=== PATIENT | female | born 1985 | race Caucasian/White ===

== ENCOUNTER 2022-01-10 11:14 | Inpatient (IN) | payer OTHER, SELFPAY ==
--- NOTE | ~2022-01-10 | XR_ITS ---
EXAMINATION: XR CHEST CLINICAL INFORMATION: Chest pain COMPARISON: None TECHNIQUE: Frontal view of the chest was obtained. FINDINGS: The cardiac and mediastinal contours are normal. There may be slight elevation or eventration of the right hemidiaphragm. The lungs are clear. There is no pleural effusion or pneumothorax. Bony structures are unremarkable. XR/XR chest 1V IMPRESSION: Slight eventration or elevation of the right hemidiaphragm otherwise unremarkable exam.
--- NOTE | ~2022-01-10 | CT_ITS ---
EXAMINATION: CT ABDOMEN AND PELVIS WITHOUT CONTRAST CLINICAL INFORMATION: Abdominal pain and vomiting COMPARISON: None. TECHNIQUE: Multidetector volumetric imaging was performed from the lung bases through the pubic symphysis. Sagittal and coronal reformatted images were obtained on the technologist workstation. This CT examination was performed using dose optimization techniques as appropriate, variously including the following: *Automated exposure control *Adjustment of mA and/or kV according to patient size (this includes techniques or standardized protocols for targeted exams where dose is matched to indication/reason for exam; i.e. extremities or head) *Use of iterative reconstruction technique Total exam dose-length product 1318 mGy-cm FINDINGS: The lack of intravenous contrast limits evaluation of the solid visceral organs including the liver, spleen, pancreas, and kidneys. LUNG BASES: The visualized lung bases are unremarkable. LIVER, GALLBLADDER, AND BILIARY TREE: Limited non-contrast evaluation is normal. No gross focal hepatic lesion. Normal liver size and contour. No gross biliary ductal dilation. There is dependent high density in the gallbladder, suggesting layering hyperdense bile or sludge. PANCREAS: Limited non-contrast evaluation is normal. No gabriela-pancreatic fluid. SPLEEN: Limited non-contrast evaluation is normal. ADRENAL GLANDS: Normal; no adrenal mass. KIDNEYS AND URETERS: Limited non-contrast evaluation is normal. No hydronephrosis, hydroureter, or calculi seen. No perinephric stranding. GASTROINTESTINAL TRACT: Stomach and small bowel are nondilated. Scattered colonic diverticulosis. No pericolonic fluid or fat stranding to suggest acute diverticulitis. There is a suggestion of wall thickening of the sigmoid colon although it is collapsed. No wall thickening seen elsewhere.. ABDOMINAL WALL: No hernia seen. LYMPH NODES: No pathologically enlarged lymph nodes in the abdomen or pelvis. VASCULAR: Normal caliber abdominal aorta. BLADDER: Unremarkable. PELVIC VISCERA: Normal noncontrast appearance of the uterus and ovaries. OSSEOUS STRUCTURES: No acute or suspicious osseous abnormalities. CT/CT abdomen pelvis wo con IMPRESSION: There is equivocal wall thickening of the sigmoid colon. The sigmoid colon is collapsed so the appearance may simply be due to underdistention but a subtle colitis could give this appearance as well. No pericolonic fluid or fat stranding to strongly suggest an acute infectious or inflammatory process.
[2022-01-10 11:20] VITALS: BP 188/89; PULSE 54; RESP 18; TEMP 36.9; O2SAT 100; BMI 44.3
--- NOTE | 2022-01-10 11:27 | ECG_ITS ---
Test Reason : CP Blood Pressure : / mmHG Vent. Rate : 104 BPM Atrial Rate : 104 BPM P-R Int : 130 ms QRS Dur : 090 ms QT Int : 354 ms P-R-T Axes : 037 -30 025 degrees QTc Int : 465 ms Sinus tachycardia Left axis deviation Minimal voltage criteria for LVH, may be normal variant ( Alex product ) Abnormal ECG No previous ECGs available Referred By: Generic ED Physician Electronically Signed By:DENNIS RAY MD
[2022-01-10 11:45] LABS: MANUAL DIFF FLAG NO
[2022-01-10 11:52] LABS: Basophils Percent Auto 0.2 % (0-2); Hematocrit 43.7 % (37.0-47.0); Hemoglobin 14.1 g/dl (12.0-16.0); Imm Gran Pct Auto 0.5 % (0.0-0.4); Lymphocytes Absolute Auto 1.9 X10*3/uL (1.2-4.9); Lymphocytes Percent Auto 10.4 % (20-40); Mean Corpuscular HGB Conc 32.3 g/dl (31.0-35.0); Mean Corpuscular Hemoglobin 26.2 pg (27.0-33.0); Mean Corpuscular Volume 81.1 fL (80.0-98.0); Mean Platelet Volume 8.9 fL (9.4-12.3); Monocytes Absolute Auto 0.6 X10*3/uL (0.1-1.2); Monocytes Percent Auto 3.2 % (2-11); Neutrophils Absolute Auto 15.7 x10*3/uL (2.0-8.3); Neutrophils Percent Auto 85.7 % (45-73); Platelet Count 528 X10*3/uL (160-400); Red Blood Count 5.39 X10*6/uL (4.20-5.50); Red Cell Distribution Width 13.9 % (11.0-16.0); White Blood Count 18.3 X10*3/uL (4.8-10.8)
[2022-01-10 12:05] LABS: Anion Gap 17 (12-20); Blood Urea Nitrogen 10 mg/dL (9-16); Calcium 9.7 mg/dL (8.4-10.2); Carbon Dioxide 23 mmol/L (22-29); Chloride 98 mmol/L (96-108); Creatinine Clr Calc Pharmacy 105.5; Estimated Glomerular Filt Rate > 60; Glucose Random 385 mg/dL (60-115); Potassium 4.1 mmol/L (3.3-5.1); Sodium 134 mmol/L (135-145); Troponin-I High Sensitivity 32.5 ng/L (<3.5-17.0)
[2022-01-10 13:25] VITALS: BP 195/109; PULSE 89; RESP 15; O2SAT 98
--- NOTE | 2022-01-10 13:36 | ED_ITS ---
HPI - General Adult General Chief complaint: Arrhythmia/Palpitations Stated complaint: Vomiting/Rapid heartbeat Time Seen by Provider: 01/10/22 13:33 Source: patient and family (Daughter) Mode of arrival: ambulatory Limitations: no limitations History of Present Illness HPI narrative: 36-year-old female came in for evaluation of vomiting for the past 5 days. Otherwise healthy 36-year-old female with known history of heroin IV abuser last use was today, patient also been smoking marijuana, came in for evaluation of nonstop vomiting for the past 5 days, no diarrhea with normal bowel movement, no fever, no chills. Patient been having abdominal pain described as mostly upper, worsening with nausea and vomiting, no radiation, not related to food. Related Data Allergies Allergy/AdvReac Type Severity Reaction Status Date / Time No Known Allergies Allergy Verified 01/10/22 11:27 Review of Systems 2 Review of Systems: All other systems are reviewed and are negative Constitutional: Reports as per HPI and Reports no additional constitutional complaints Eyes: Reports as per HPI and Reports no additional eye complaints Reports system reviewed and no additional complaints, except as documented Cardiovascular: Reports as per HPI and Reports no additional cardiovascular complaints Respiratory: Reports as per HPI and Reports no additional respiratory complaints Gastrointestinal: Reports as per HPI and Reports no additional gastrointestinal complaints Genitourinary: Reports no additional female genitourinary complaints Musculoskeletal: Reports no additional musculoskeletal complaints Skin/Breast: Reports system reviewed and no additional complaints, except as docu Psychiatric: Reports no additional psychiatric complaints Endocrine: Reports no additional endocrine complaints Hematologic/Lymphatic: Reports no additional hematologic/lymphatic complaints Allergic/Immunologic: Reports no additional allergic/immunologic complaints Reports system reviewed and no additional complaints, except as documented and Reports Abnormal speech present [facility] Past Medical History Medical History Anxiety and depression Diabetes Methadone maintenance therapy patient Polysubstance (excluding opioids) dependence, daily use Social History Social History Alcohol intake: never Patient Tobacco Use Status: Never used Tobacco Use of substances other than those prescribed or required for medical reasons: Yes Substance Use Type: Heroin Substance Use Frequency: Daily Last Used Substance: Hours (ago) Any prior treatment program specific to substance use: Yes (methadone clinic) Advance Directives: No Advance Directives Information Provided: No Patient : No Physical Exam ED Vital Signs: Vital Signs - 24 hr 01/10/22 11:20 01/10/22 13:25 01/10/22 15:02 Temperature 98.5 F Pulse Rate 54 89 80 Respiratory Rate 18 15 13 Blood Pressure 188/89 H 195/109 H 191/92 H Pulse Oximetry 100 98 95 01/10/22 16:08 Temperature 98.8 F Pulse Rate 70 Respiratory Rate 17 Blood Pressure 193/99 H Pulse Oximetry 95 BMI result Body Mass Index 44.3 Vital signs have been reviewed as appeared to be correct. Blood pressure elevated. Heart rate normal. Respiration rate normal. Temperature normal. Oxygen saturation normal. Appearance: Alert. Oriented X3. No acute distress. Head: Normal external exam. Normocephalic. Atraumatic. No Zhang signs noted. No raccoon eyes noted Eyes: PERRLA. EOMI. Conjunctiva and sclera normal. Eyelids normal. ENT: TM's Normal. Pharynx normal. Uvula midline. Moist mucous membranes. No trismus noted. No drooling noted. No muffled voice noted. Neck: Normal inspection. Neck supple. FROM. No adenopathy. Thyroid Normal. No meningeal signs. No neck mass noted. CVS: Normal heart rate and rhythm. Heart sound normal. No murmurs noted. Pulses normal throughout. Respiratory: No respiratory distress. Painless inspiration. Breath sounds normal. No wheezes/rales/rhonchi noted. Chest nontender. No accessory muscle usage noted or decreased air movement noted. Abdomen: Soft and nontender. Bowel sounds normal in all 4 quadrants. No distention noted. No organomegaly noted. No visible injury noted. Back: No CVA tenderness. Full range of motion noted. Skin: Skin warm and dry. Normal skin color. Normal skin turgor. No rashes/lesions/lacerations noted. Extremities: No lower extremity edema. Extremities exhibit normal range of motion. Extremities nontender. Neuro: Oriented X 3. Cranial nerve exam: II-XII are grossly intact No motor deficit. No sensory deficit. Reflexes normal. Course Course Course Narrative: Assessment and plan. 36-year-old female came in with intractable vomiting, complaining of upper abdominal/chest/ heart burn thought to be due to the intractable vomiting, patient admitted to using IV heroin but no cocaine, head CT abdomen and pelvis which shows no acute pathology, has unremarkable EKG troponin was elevated at 32.5 then increased to 81.8, the case discussed with Dr. Duran who recommended to trend troponin value every 6-8 hours and in no other acute intervention at this point. Will admit the patient for IV hydration, vomiting control, serial troponin the case discussed with Dr. Ann who accepted the patient and agreed on the plan. Medical Decision Making Lab Data Lab results reviewed: Yes I reviewed the patient's lab results. Result diagrams: 01/10/22 11:39 01/10/22 11:39 Labs: Lab Results 01/10/22 01/10/22 01/10/22 Range/Units 11:39 11:39 11:39 WBC 18.3 H (4.8-10.8) X10*3/uL RBC 5.39 (4.20-5.50) X10*6/uL Hgb 14.1 (12.0-16.0) g/dl Hct 43.7 (37.0-47.0) % MCV 81.1 (80.0-98.0) fL MCH 26.2 L (27.0-33.0) pg MCHC 32.3 (31.0-35.0) g/dl RDW 13.9 (11.0-16.0) % Plt Count 528 H (160-400) X10*3/uL MPV 8.9 L (9.4-12.3) fL Immature Gran % (Auto) 0.5 H (0.0-0.4) % Neut % (Auto) 85.7 H (45-73) % Lymph % (Auto) 10.4 L (20-40) % [place] % (Auto) 3.2 (2-11) % Eos % (Auto) 0.0 (0-4) % Baso % (Auto) 0.2 (0-2) % Lymph # (Auto) 1.9 (1.2-4.9) X10*3/uL [place] # (Auto) 0.6 (0.1-1.2) X10*3/uL Eos # (Auto) 0.0 (0.0-0.4) X10*3/uL Baso # (Auto) 0.0 (0.0-0.2) X10*3/uL Abs Immat Gran (auto) 0.10 H (0.00-0.03) X10*3/uL Absolute Neuts (auto) 15.7 H (2.0-8.3) x10*3/uL Absolute Nucleated RBC 0.000 (0.0-0.012) X10*3/uL Nucleated RBC % (auto) 0.0 (0.0-0.2) /100WBC Sodium 134 L (135-145) mmol/L Potassium 4.1 (3.3-5.1) mmol/L Chloride 98 (96-108) mmol/L Carbon Dioxide 23 (22-29) mmol/L Anion Gap 17 (12-20) BUN 10 (9-16) mg/dL Creatinine 0.97 (0.5-1.4) mg/dL Estim Creat Clear Calc 105.5 Estimated GFR > 60 Random Glucose 385 H* (60-115) mg/dL Calcium 9.7 (8.4-10.2) mg/dL Total Bilirubin 0.5 (0.0-1.0) mg/dL Direct Bilirubin 0.2 (0.0-0.5) mg/dL AST 19 (5-31) U/L ALT 19 (0-31) U/L Alkaline Phosphatase 96 (39-117) U/L Troponin I High Sens 32.5 H (<3.5-17.0) ng/L Total Protein 9.2 H (6.5-8.0) g/dL Albumin 3.9 (3.5-5.0) g/dL Lipase 23 (8-78) U/L Urine Color Urine Appearance Urine pH (5.0-8.0) Ur Specific [place] (1.005-1.025) Urine Protein (NEG-TRACE) MG/DL Urine Glucose (UA) (NEG) MG/DL Urine Ketones (NEG) MG/DL Urine Blood (NEG) Urine Nitrite (NEG) Ur Leukocyte Esterase (NEG) Urine RBC (0) /HPF Urine WBC (0-4) /HPF Urine WBC Clumps Ur Squamous Epith Cells /LPF Urine Bacteria /LPF Urine Mucus /LPF Urine Test (NEGATIVE) Urine Opiates Screen (Not Detect) Urine Fentanyl Screen (Not Detect) Ur Barbiturates Screen (Not Detect) Ur Phencyclidine Scrn (Not Detect) Ur Amphetamines Screen (Not Detect) U Benzodiazepines Scrn (Not Detect) Urine Cocaine Screen (Not Detect) U Marijuana (THC) Screen (Not Detect) 01/10/22 01/10/22 01/10/22 Range/Units 15:52 17:18 17:18 WBC (4.8-10.8) X10*3/uL RBC (4.20-5.50) X10*6/uL Hgb (12.0-16.0) g/dl Hct (37.0-47.0) % MCV (80.0-98.0) fL MCH (27.0-33.0) pg MCHC (31.0-35.0) g/dl RDW (11.0-16.0) % Plt Count (160-400) X10*3/uL MPV (9.4-12.3) fL Immature Gran % (Auto) (0.0-0.4) % Neut % (Auto) (45-73) % Lymph % (Auto) (20-40) % [place] % (Auto) (2-11) % Eos % (Auto) (0-4) % Baso % (Auto) (0-2) % Lymph # (Auto) (1.2-4.9) X10*3/uL [place] # (Auto) (0.1-1.2) X10*3/uL Eos # (Auto) (0.0-0.4) X10*3/uL Baso # (Auto) (0.0-0.2) X10*3/uL Abs Immat Gran (auto) (0.00-0.03) X10*3/uL Absolute Neuts (auto) (2.0-8.3) x10*3/uL Absolute Nucleated RBC (0.0-0.012) X10*3/uL Nucleated RBC % (auto) (0.0-0.2) /100WBC Sodium (135-145) mmol/L Potassium (3.3-5.1) mmol/L Chloride (96-108) mmol/L Carbon Dioxide (22-29) mmol/L Anion Gap (12-20) BUN (9-16) mg/dL Creatinine (0.5-1.4) mg/dL Estim Creat Clear Calc Estimated GFR Random Glucose (60-115) mg/dL Calcium (8.4-10.2) mg/dL Total Bilirubin (0.0-1.0) mg/dL Direct Bilirubin (0.0-0.5) mg/dL AST (5-31) U/L ALT (0-31) U/L Alkaline Phosphatase (39-117) U/L Troponin I High Sens 81.8 H* D (<3.5-17.0) ng/L Total Protein (6.5-8.0) g/dL Albumin (3.5-5.0) g/dL Lipase (8-78) U/L Urine Color YELLOW Urine Appearance CLOUDY Urine pH 5.5 (5.0-8.0) Ur Specific [place] >= 1.030 H (1.005-1.025) Urine Protein 2+ H (NEG-TRACE) MG/DL Urine Glucose (UA) >=1000 H (NEG) MG/DL Urine Ketones 40 (NEG) MG/DL Urine Blood 3+ H (NEG) Urine Nitrite NEG (NEG) Ur Leukocyte Esterase 1+ H (NEG) Urine RBC 1-4 (0) /HPF Urine WBC 15-29 H (0-4) /HPF Urine WBC Clumps NOTED Ur Squamous Epith Cells 4+ /LPF Urine Bacteria 4+ /LPF Urine Mucus 2+ /LPF Urine Test NEGATIVE (NEGATIVE) Urine Opiates Screen (Not Detect) Urine Fentanyl Screen (Not Detect) Ur Barbiturates Screen (Not Detect) Ur Phencyclidine Scrn (Not Detect) Ur Amphetamines Screen (Not Detect) U Benzodiazepines Scrn (Not Detect) Urine Cocaine Screen (Not Detect) U Marijuana (THC) Screen (Not Detect) 01/10/22 Range/Units 17:18 WBC (4.8-10.8) X10*3/uL RBC (4.20-5.50) X10*6/uL Hgb (12.0-16.0) g/dl Hct (37.0-47.0) % MCV (80.0-98.0) fL MCH (27.0-33.0) pg MCHC (31.0-35.0) g/dl RDW (11.0-16.0) % Plt Count (160-400) X10*3/uL MPV (9.4-12.3) fL Immature Gran % (Auto) (0.0-0.4) % Neut % (Auto) (45-73) % Lymph % (Auto) (20-40) % [place] % (Auto) (2-11) % Eos % (Auto) (0-4) % Baso % (Auto) (0-2) % Lymph # (Auto) (1.2-4.9) X10*3/uL [place] # (Auto) (0.1-1.2) X10*3/uL Eos # (Auto) (0.0-0.4) X10*3/uL Baso # (Auto) (0.0-0.2) X10*3/uL Abs Immat Gran (auto) (0.00-0.03) X10*3/uL Absolute Neuts (auto) (2.0-8.3) x10*3/uL Absolute Nucleated RBC (0.0-0.012) X10*3/uL Nucleated RBC % (auto) (0.0-0.2) /100WBC Sodium (135-145) mmol/L Potassium (3.3-5.1) mmol/L Chloride (96-108) mmol/L Carbon Dioxide (22-29) mmol/L Anion Gap (12-20) BUN (9-16) mg/dL Creatinine (0.5-1.4) mg/dL Estim Creat Clear Calc Estimated GFR Random Glucose (60-115) mg/dL Calcium (8.4-10.2) mg/dL Total Bilirubin (0.0-1.0) mg/dL Direct Bilirubin (0.0-0.5) mg/dL AST (5-31) U/L ALT (0-31) U/L Alkaline Phosphatase (39-117) U/L Troponin I High Sens (<3.5-17.0) ng/L Total Protein (6.5-8.0) g/dL Albumin (3.5-5.0) g/dL Lipase (8-78) U/L Urine Color Urine Appearance Urine pH (5.0-8.0) Ur Specific [place] (1.005-1.025) Urine Protein (NEG-TRACE) MG/DL Urine Glucose (UA) (NEG) MG/DL Urine Ketones (NEG) MG/DL Urine Blood (NEG) Urine Nitrite (NEG) Ur Leukocyte Esterase (NEG) Urine RBC (0) /HPF Urine WBC (0-4) /HPF Urine WBC Clumps Ur Squamous Epith Cells /LPF Urine Bacteria /LPF Urine Mucus /LPF Urine Test (NEGATIVE) Urine Opiates Screen POSITIVE H (Not Detect) Urine Fentanyl Screen POSITIVE H (Not Detect) Ur Barbiturates Screen Not Detected (Not Detect) Ur Phencyclidine Scrn Not Detected (Not Detect) Ur Amphetamines Screen Not Detected (Not Detect) U Benzodiazepines Scrn Not Detected (Not Detect) Urine Cocaine Screen Not Detected (Not Detect) U Marijuana (THC) Screen POSITIVE H (Not Detect) Imaging Data CT scan - abdomen: Attestation: I personally reviewed and interpreted this imaging study as follows: Radiologist's impression: There is equivocal wall thickening of the sigmoid colon. The sigmoid colon is collapsed so the appearance may simply be due to underdistention but a subtle colitis could give this appearance as well. No pericolonic fluid or fat stranding to strongly suggest an acute infectious or inflammatory process. ? Chest x-ray: Attestation: I personally reviewed and interpreted this imaging study as follows: Radiologist's impression: Slight eventration or elevation of the right hemidiaphragm otherwise unrem arkable exam. ECG Data Attestation: I personally reviewed and interpreted this ECG as follows: Interpretation: Sinus tachycardia 104 beats per minute, left axis deviation, normal intervals, no acute ST-T ischemic change. Discharge Plan Discharge Clinical Impression: Intractable vomiting, Elevated troponin, Substance abuse Patient Disposition: Admitted As Inpatient
[2022-01-10 13:50] LABS: Alanine Aminotransferase 19 U/L (0-31); Albumin Level 3.9 g/dL (3.5-5.0); Alkaline Phosphatase 96 U/L (39-117); Aspartate Amino Transferase 19 U/L (5-31); Bilirubin Direct 0.2 mg/dL (0.0-0.5); Bilirubin Total 0.5 mg/dL (0.0-1.0); Lipase 23 U/L (8-78); Total Protein 9.2 g/dL (6.5-8.0)
[2022-01-10] MEDS: 0.9 % Sodium Chloride 1,000 ML 999 ML IV (14:03)
[2022-01-10] MEDS: Famotidine/PF 20 MG/2 ML VIAL IVPUSH (14:08)
[2022-01-10] MEDS: ondansetron HCL 4 MG/2 ML VIAL IVPUSH (14:08)
[2022-01-10 15:02] VITALS: BP 191/92; PULSE 80; RESP 13; O2SAT 95
[2022-01-10 16:08] VITALS: BP 193/99; PULSE 70; RESP 17; TEMP 37.1; O2SAT 95
[2022-01-10 16:25] LABS: Troponin-I High Sensitivity 81.8 ng/L (<3.5-17.0)
[2022-01-10] MEDS: LORazepam 2 MG/ML VIAL 1 MG IVPUSH (16:25)
[2022-01-10] MEDS: Metoclopramide HCl 10 MG/2 ML VIAL IVPUSH (16:27)
[2022-01-10 17:33] LABS: Appearance Urine CLOUDY; Color Urine YELLOW; Glucose Urine UA >=1000 MG/DL (NEG); Leukocyte Esterase Urine 1+ (NEG); Nitrite Urine NEG (NEG); PH 5.5 (5.0-8.0); Specific Gravity - Urine >= 1.030 (1.005-1.025); UACC Culture Trigger YES; Urine Blood 3+ (NEG); Urine Ketones 40 MG/DL (NEG); Urine Protein 2+ MG/DL (NEG-TRACE)
[2022-01-10 17:37] LABS: UPreg QC Valid YES; Urine Pregnancy NEGATIVE (NEGATIVE)
[2022-01-10 17:41] LABS: Bacteria Urine 4+ /LPF; Mucus Urine 2+ /LPF; Squamous Epithelial Cell Urine 4+ /LPF; WBC Clumps Urine NOTED
[2022-01-10 17:53] LABS: Amphetamine Screen Urine Not Detected (Not Detect); Barbiturates, Urine Not Detected (Not Detect); Benzodiazepines Screen Urine Not Detected (Not Detect); Cannabinoid Screen Urine POSITIVE (Not Detect); Cocaine Screen Urine Not Detected (Not Detect); Fentanyl, urine POSITIVE (Not Detect); Opiate Screen Urine POSITIVE (Not Detect); Phencyclidine Screen Urine Not Detected (Not Detect)
--- NOTE | 2022-01-10 19:14 | PM.IMHP ---
History of Present Illness Date of Service: 01/10/22 Chief Complaint: Nausea/vomiting 36-year-old female with a past medical history of hypertension, diabetes, noncompliant with home medications, opiate dependence on methadone program, heroin abuse, cannabis abuse presented to the hospital with a chief complaint of nausea and vomiting. Patient reports that for the past 5 days she has been having multiple episodes of nausea and vomiting; has bilious vomitus; denies any blood in the vomitus. Denies any diarrhea. Reports abdominal discomfort and-discomfort. Attributes that chest discomfort to her bone/multiple episodes of vomiting; worsens with deep inspiration. Denies any numbness tingling or focal weakness. Denies any diarrhea. Denies any urinary symptoms. Review of all other systems is negative except mentioned above ER course: Per ER team patient noted to have elevated systolic blood pressure on presentation; had multiple episodes of vomiting; given IV fluids, Zofran, lorazepam, Pepcid with mild improvement in the symptoms; noted to elevated troponins; EKG was nonischemic; discussed with Dr. Duran who suggested no heparin drip. Admitted for further management. [facility] Medical History Anxiety and depression Diabetes Methadone maintenance therapy patient Polysubstance (excluding opioids) dependence, daily use Social History Alcohol intake: never Patient Tobacco Use Status: Never used Tobacco Use of substances other than those prescribed or required for medical reasons: Yes Substance Use Type: Heroin Substance Use Frequency: Daily Last Used Substance: Hours (ago) Any prior treatment program specific to substance use: Yes (methadone clinic) Advance Directives: No Advance Directives Information Provided: No Patient : No service: No Current occupational status: employed Meds Allergies Allergy/AdvReac Type Severity Reaction Status Date / Time No Known Allergies Allergy Verified 01/10/22 11:27 Home Medications Medication Instructions Recorded Confirmed Last Taken Type insulin lispro 100 unit/mL 8 - 15 unit SUBCUT BID-TID 01/10/22 01/10/22 01/10/22 History subcutaneous pen (Humalog KwikPen (U-100) Insulin) methadone 10 mg/mL oral concentrate 100 mg PO DAILY 01/10/22 01/09/22 History Physical Exam Vital Signs and Narrative: Vital Signs: Last Vital Signs Temp 98.8 F 01/10/22 16:08 Pulse 70 01/10/22 16:08 Resp 17 01/10/22 16:08 BP 193/99 H 01/10/22 16:08 Pulse Ox 95 01/10/22 16:08 BMI result Body Mass Index 44.3 Gen: Appears be in no acute distress; obese HEENT: NCAT, Moist mucosa. Pulmonary: Vesicular breath sounds, fair air entry CVS: Normal S1-S2 Abdomen: BS+, Soft, mildly tender diffusely; no guarding no rigidity Extremities: Warm well perfused Neuro: Alert and awake. Results Labs CBC and Chem 7: 01/10/22 11:39 01/10/22 11:39 Labs: Laboratory Results - last 24 hr 01/10/22 01/10/22 01/10/22 11:39 11:39 11:39 MCV 81.1 MCH 26.2 L MCHC 32.3 RDW 13.9 Plt Count 528 H MPV 8.9 L Immature Gran % (Auto) 0.5 H Neut % (Auto) 85.7 H Lymph % (Auto) 10.4 L [place] % (Auto) 3.2 Eos % (Auto) 0.0 Baso % (Auto) 0.2 Lymph # (Auto) 1.9 [place] # (Auto) 0.6 Eos # (Auto) 0.0 Baso # (Auto) 0.0 Abs Immat Gran (auto) 0.10 H Absolute Neuts (auto) 15.7 H Absolute Nucleated RBC 0.000 Nucleated RBC % (auto) 0.0 Anion Gap 17 Estim Creat Clear Calc 105.5 Estimated GFR > 60 Random Glucose 385 H* Calcium 9.7 Total Bilirubin 0.5 Direct Bilirubin 0.2 AST 19 ALT 19 Alkaline Phosphatase 96 Troponin I High Sens 32.5 H Total Protein 9.2 H Albumin 3.9 Lipase 23 Urine Color Urine Appearance Urine pH Ur Specific [place] Urine Protein Urine Glucose (UA) Urine Ketones Urine Blood Urine Nitrite Ur Leukocyte Esterase Urine RBC Urine WBC Urine WBC Clumps Ur Squamous Epith Cells Urine Bacteria Urine Mucus Urine Test Urine Opiates Screen Urine Fentanyl Screen Ur Barbiturates Screen Ur Phencyclidine Scrn Ur Amphetamines Screen U Benzodiazepines Scrn Urine Cocaine Screen U Marijuana (THC) Screen 01/10/22 01/10/22 01/10/22 15:52 17:18 17:18 MCV MCH MCHC RDW Plt Count MPV Immature Gran % (Auto) Neut % (Auto) Lymph % (Auto) [place] % (Auto) Eos % (Auto) Baso % (Auto) Lymph # (Auto) [place] # (Auto) Eos # (Auto) Baso # (Auto) Abs Immat Gran (auto) Absolute Neuts (auto) Absolute Nucleated RBC Nucleated RBC % (auto) Anion Gap Estim Creat Clear Calc Estimated GFR Random Glucose Calcium Total Bilirubin Direct Bilirubin AST ALT Alkaline Phosphatase Troponin I High Sens 81.8 H* D Total Protein Albumin Lipase Urine Color YELLOW Urine Appearance CLOUDY Urine pH 5.5 Ur Specific [place] >= 1.030 H Urine Protein 2+ H Urine Glucose (UA) >=1000 H Urine Ketones 40 Urine Blood 3+ H Urine Nitrite NEG Ur Leukocyte Esterase 1+ H Urine RBC 1-4 Urine WBC 15-29 H Urine WBC Clumps NOTED Ur Squamous Epith Cells 4+ Urine Bacteria 4+ Urine Mucus 2+ Urine Test NEGATIVE Urine Opiates Screen Urine Fentanyl Screen Ur Barbiturates Screen Ur Phencyclidine Scrn Ur Amphetamines Screen U Benzodiazepines Scrn Urine Cocaine Screen U Marijuana (THC) Screen 01/10/22 17:18 MCV MCH MCHC RDW Plt Count MPV Immature Gran % (Auto) Neut % (Auto) Lymph % (Auto) [place] % (Auto) Eos % (Auto) Baso % (Auto) Lymph # (Auto) [place] # (Auto) Eos # (Auto) Baso # (Auto) Abs Immat Gran (auto) Absolute Neuts (auto) Absolute Nucleated RBC Nucleated RBC % (auto) Anion Gap Estim Creat Clear Calc Estimated GFR Random Glucose Calcium Total Bilirubin Direct Bilirubin AST ALT Alkaline Phosphatase Troponin I High Sens Total Protein Albumin Lipase Urine Color Urine Appearance Urine pH Ur Specific [place] Urine Protein Urine Glucose (UA) Urine Ketones Urine Blood Urine Nitrite Ur Leukocyte Esterase Urine RBC Urine WBC Urine WBC Clumps Ur Squamous Epith Cells Urine Bacteria Urine Mucus Urine Test Urine Opiates Screen POSITIVE H Urine Fentanyl Screen POSITIVE H Ur Barbiturates Screen Not Detected Ur Phencyclidine Scrn Not Detected Ur Amphetamines Screen Not Detected U Benzodiazepines Scrn Not Detected Urine Cocaine Screen Not Detected U Marijuana (THC) Screen POSITIVE H Imaging Radiologist's Impressions: Impressions Chest X-Ray 01/10/22 11:50 IMPRESSION: Slight eventration or elevation of the right hemidiaphragm otherwise unremarkable exam. Abdomen/Pelvis CT 01/10/22 18:04 IMPRESSION: There is equivocal wall thickening of the sigmoid colon. The sigmoid colon is collapsed so the appearance may simply be due to underdistention but a subtle colitis could give this appearance as well. No pericolonic fluid or fat stranding to strongly suggest an acute infectious or inflammatory process. Assessment and Plan (1) Cyclic vomiting syndrome: Status: Acute (2) Elevated troponin: Status: Acute (3) Opiate abuse, continuous: Status: Acute Plan 36-year-old female with a past medical history of hypertension, diabetes, high BMI, noncompliant with home medications, opiate dependence on methadone program, heroin abuse, cannabis abuse presented to the hospital with a chief complaint of nausea and vomiting. Chest discomfort: Patient reported heartburn/chest discomfort. Attributes to her repeated vomiting. EKG was nonischemic Troponin 32-81. ER team discussed with Cardiology Dr. Whitman admission, telemetry; no heparin drip recommended. Echocardiogram Cycle cardiac enzymes D-dimer pending Cyclic vomiting syndrome: Patient reports she does use cannabis. Last use was the prior to coming to the hospital. Supportive care Advanced diet as tolerated Gentle IV fluids CT abdomen showed nonspecific colonic Findings. Patient denies any diarrhea. Hold of antibiotics for now. Opiate dependence: Patient reports that she is on 100 mg of methadone. Monitor on COWS protocol. Addiction Medicine consult. Methadone to be confirmed during the daytime. Patient did not take her dose on 01/10/2022. Hypertensive urgency: Patient systolic blood pressure was in 200s on presentation. Also aggravated by repeated vomiting/abdominal discomfort. Patient reported that she was prescribed lisinopril in the past but has not taken any pills in many months. Will start the patient on lisinopril 5 mg Labetalol p.r.n. Diabetes: Patient reports that she does not take any medications at home. Will obtain hemoglobin A1c Insulin sliding scale DVT prophylaxis: Lovenox Code status: Full code Quality Stroke Does the patient have a stroke diagnosis?: No VTE Prior VTE?: No VTE Risk Level:: Medical - moderate - high VTE Device Contraindication: Treatment Not Indicated VTE Drug Contraindication: N/A - Med Ordered
--- NOTE | 2022-01-10 19:30 | PHA.MEDREC ---
Pharmacy Consult ? Medication Reconciliation Pharmacy has completed the medication reconciliation. Pt states that she gets 100mg of methadone from [facility] in [place], and that her last dose was yesterday. She also states that she recently got out of detox and that she was on a pill for diabetes but it was not metformin, unsure of which medication, but she ran out and hasn't taken it in a while ebcause she got the pill and the insulin at the detox facility. She also states that she uses an insulin pen two to three times daily using 8-15 units depending on her sugars. Unsure of which pen she uses but she thinks it may be Humalog, last used this morning.
[2022-01-10 20:41] LABS: Glucose, Whole Blood 276 mg/dL (60-115)
[2022-01-10] MEDS: 0.9 % Sodium Chloride 1,000 ML 100 ML IVCONT (20:46)
[2022-01-10] MEDS: Insulin Lispro 100 UNIT/ML 3 ML VIAL SUBCUT (20:46)
[2022-01-10] MEDS: Enoxaparin Sodium 40 MG/0.4 ML SYRINGE SUBCUT (20:46)
[2022-01-10 21:10] VITALS: BP 182/78; PULSE 88; RESP 15; TEMP 37; O2SAT 93
--- NOTE | 2022-01-10 21:30 | PC.NURSE ---
aware of pressure
--- NOTE | 2022-01-10 23:11 | MHC.CM.PN ---
CM met with admitted patient with bed assignment pending. A&O x4. Opiate use disorder. Needs recovery/care team. No HCP. HCP reviewed, completed and signed. Copies given. Uploaded into [employer] and [facility] [employer]. Aaliyah Galvan ([phone]). Moderna x2. Pt had Covid. Lives with 19y/o daughter. Unemployed. Has DM testings supplies per pt. Pt does not have a PCP. No services. Needs recovery/care/MAT services. D/C plan: Home without services. Pt to arrange transportation. CM to follow for d/c needs.
[2022-01-11] VITALS (8 sets, daily range): BP systolic 143–183; BP diastolic 70–108; PULSE 65–81; RESP 12–20; TEMP 36.4–37.2; O2SAT 93–98
--- NOTE | 2022-01-11 | ECG_ITS ---
Test Reason : check qtc Blood Pressure : / mmHG Vent. Rate : 070 BPM Atrial Rate : 070 BPM P-R Int : 124 ms QRS Dur : 098 ms QT Int : 434 ms P-R-T Axes : 036 003 032 degrees QTc Int : 468 ms Normal sinus rhythm Normal ECG When compared with ECG of 10-JAN-2022 11:25, Vent. rate has decreased BY 34 BPM Nonspecific T wave abnormality now evident in Anterior leads Referred By: Jasbir Ann Electronically Signed By:DENNIS RAY MD
[2022-01-11 00:03] LABS: COVID-19 Test Negative (Negative)
[2022-01-11 02:13] LABS: D Dimer High Sensitivity 333 NG/ML
--- NOTE | 2022-01-11 04:10 | PC.NURSE ---
PT WALKING AROUND IN ROOM. ALERT AND ORIENTED.
--- NOTE | 2022-01-11 07:00 | CA_ITS ---
Transthoracic Echocardiogram Patient (Last, First, Middle): Misty Schmitt, Gender: Female Date of : 1985 Age: 36 Procedure Date: 01/11/2022 Procedure Type: Transthoracic Echocardiogram Location: ER Height: 165.1 cm Weight: 120.66 kg BSA: 2.23 m2 Heart Rate: bpm BP: 160 / 85 mmHg Senior Support Engineer: LELA Garcia MD: Jasbir Ann MD Vice President Media Relations: Russ Duran MD Symptoms: elevated troponins Study Quality: Fair ECG Rhythm: Sinus Conclusions: - Essentially normal study Findings Left Ventricle Normal left ventricular size, thickness, and systolic function. The visually estimated ejection fraction is between 65-70%. Diastolic function is normal for age. Right Ventricle Normal right ventricular cavity size and systolic function. Atria The left atrium is likely dilated. Interatrial shunt cannot be excluded. The right atrium is normal in size. Aortic Valve The aortic valve structure and function is likely normal. There is no aortic valve stenosis. There is no aortic valve regurgitation. Mitral Valve Likely normal mitral valve structure and function. There is trace mitral valve regurgitation. There is no mitral valve stenosis. Pulmonic Valve The pulmonic valve was not well visualized. Tricuspid Valve Likely normal tricuspid valve structure and function. There is trace tricuspid valve regurgitation. The right ventricular systolic pressure is normal. The right ventricular systolic pressure is 21 mmHg. Normal right atrial pressure. There is no evidence of pulmonary hypertension. Great Vessels All visible segments of the aorta are normal in size. The pulmonary artery was not well visualized. Venous The inferior vena cava is normal in size and collapses greater than 50% with inspiration. Pericardium/Pleural There is no evidence of pericardial effusion. Prior Study Comparison No prior study available for comparison. Measurements 2D Linear Measurements IVSd: 1.14 0.6-0.9/0.6-1.0 cm LVIDd: 4.78 3.9-5.3/4.2-5.9 cm LVIDd Index: 2.14 2.4-3.2/2.2-3.1 cm/m2 LVIDs: 2.98 2.0-3.6 cm LVPWd: 1.13 0.7-1.1 cm LA Diam: 4.60 2.7-3.8/3.0-4.0 cm LAIDs Index: 2.06 1.5-2.3 cm/m2 LV Mass: 250.83 67-162/88-224 g LV Mass Index: 112.48 43-95/49-115 g/m2 LVOT Diam: 2.10 3.0+(-)1.3 cm 2D Systolic Function EF 4C: 69.30 >55% EF 2C: 62.30 >55% EF BiP: 67.10 >55% Mitral Valve MV Pk E: 1.02 MV PK A: 0.66 MV Decel Time: 281.00 E/A: 1.50 E'Lateral: 10.40 E'Medial: 8.92 E/E' Med: 11.40 E/E' Lat: 9.80 PHT: 82.00 MVA PHT: 2.68 Decel Ponce: 3.63 Aortic Valve AoV Pk Italo: 1.92 AoV Mn Italo: 1.31 AoV VTI: 0.35 AoV Pk Grad: 15.00 Aov Mn Grad: 8.00 REDDY Cont.VTI: 2.61 LVOT LVOT Pk Italo: 1.32 LVOT Mn Italo: 0.79 LVOT VTI: 0.27 LVOT Pk Grad: 7.00 LVOT Mn Grad: 3.00 LVOT Diam: 2.10 LVOT Area: 3.46 Diastolic Function MV Pk E: 1.02 MV Pk A: 0.66 E/A: 1.50 E'Medial: 8.92 E/E' Med: 11.40 E' Laterial: 10.40 E/E' Lat: 9.80 Right Ventricle TAPSE (mm): 23.50 TVS' Italo: 13.90 Tricuspid Valve TR Pk Italo: 1.83 TR Pk Grad: 13.00 RA Press: 8.00 RVSP: 21.00 Great Vessels Aorta Sinus of Valsalva: 3.54 2.0-3.[address] Ridge: 2.77 1.7-3.4 cm Ao Asc: 3.50 2.1-3.4 cm Updated in Other Vendor System with Status of Final Russ Duran MD electronically signed on 01/11/2022 2:02:17 PM with status of Final
[2022-01-11 07:18] LABS: Glucose, Whole Blood 299 mg/dL (60-115)
[2022-01-11 07:23] LABS: MANUAL DIFF FLAG NO
[2022-01-11 07:28] LABS: Basophils Absolute Auto 0.1 X10*3/uL (0.0-0.2); Basophils Percent Auto 0.4 % (0-2); Eosinophils Percent Auto 0.2 % (0-4); Hematocrit 39.3 % (37.0-47.0); Hemoglobin 12.4 g/dl (12.0-16.0); Imm Gran Abs Auto 0.04 X10*3/uL (0.00-0.03); Imm Gran Pct Auto 0.3 % (0.0-0.4); Lymphocytes Absolute Auto 3.4 X10*3/uL (1.2-4.9); Lymphocytes Percent Auto 26.7 % (20-40); Mean Corpuscular HGB Conc 31.6 g/dl (31.0-35.0); Mean Corpuscular Hemoglobin 25.9 pg (27.0-33.0); Mean Corpuscular Volume 82.2 fL (80.0-98.0); Mean Platelet Volume 9.2 fL (9.4-12.3); Monocytes Absolute Auto 0.6 X10*3/uL (0.1-1.2); Monocytes Percent Auto 4.7 % (2-11); Neutrophils Absolute Auto 8.6 x10*3/uL (2.0-8.3); Neutrophils Percent Auto 67.7 % (45-73); Platelet Count 352 X10*3/uL (160-400); Red Blood Count 4.78 X10*6/uL (4.20-5.50); Red Cell Distribution Width 13.9 % (11.0-16.0); White Blood Count 12.8 X10*3/uL (4.8-10.8)
--- NOTE | 2022-01-11 07:28 | PC.NURSE ---
Patient resting on stretcher, alert and oriented, respirations regular and even. Skin PWD. Ambulates independently to restroom at this time.
[2022-01-11 07:39] LABS: Estimated Average Glucose 352 mg/dL; Hemoglobin A1c % 13.9 %
[2022-01-11 07:50] LABS: Troponin-I High Sensitivity 40.3 ng/L (<3.5-17.0)
[2022-01-11] MEDS: Insulin Lispro 100 UNIT/ML 3 ML VIAL SUBCUT ×4 (07:50→21:16)
[2022-01-11 07:51] LABS: Anion Gap 13 (12-20); Blood Urea Nitrogen 13 mg/dL (9-16); Calcium 9.1 mg/dL (8.4-10.2); Carbon Dioxide 27 mmol/L (22-29); Chloride 99 mmol/L (96-108); Creatinine Clr Calc Pharmacy 112.5; Estimated Glomerular Filt Rate > 60; Glucose Random 333 mg/dL (60-115); Potassium 4.2 mmol/L (3.3-5.1); Sodium 135 mmol/L (135-145)
--- NOTE | 2022-01-11 08:00 | PC.NURSE ---
Patient reports feeling anxious, message sent to hospitalist. Attempted to contact [facility] Yesika to confirm Methadone dose, awaiting call back.
[2022-01-11] MEDS: lisinopriL 5 MG TABLET PO (08:45)
--- NOTE | 2022-01-11 09:00 | PC.NURSE ---
Patient asleep on stretcher at this time.
[2022-01-11 11:44] LABS: Glucose, Whole Blood 262 mg/dL (60-115)
--- NOTE | 2022-01-11 12:00 | P.CONCA_ITS ---
History of Present Illness History of Present Illness Date of Service: 01/11/22 Requesting physician: Gonzalez Pathak Consult reason: troponin elevation Chief complaint: Cyclic vomiting syndrome Narrative: I was consulted to see Misty in Cardiology consultation due to elevated troponin. She presented to the hospital because of persistent nausea and vomiting for 5 days. She had no bleeding issues. She has prior history of hypertension diabetes noncompliant with medication also history of will obesity and opiate dependence on methadone program but still uses heroin and fentanyl and also uses marijuana. On presentation she did complain of some chest pain which was atypical, troponin was done which was initially slightly elevated and subsequently noah. Follow-up troponin is down trending. No anticoagulation was provided. Patient currently says she is anxious to and wants her opiates/ methadone. She is anxious that she is withdrawing. She was not aware that marijuana card cyclic vomiting syndrome. She remains hypertensive. U tox is positive for opiates, fentanyl and marijuana Review of Systems Constitutional: Constitutional: Reports no additional constitutional complaints Eyes: Eyes: Reports no additional eye complaints Cardiovascular: Cardiovascular: Reports chest pain ( increase with respiration), Denies lightheadedness, Denies Loss of Consciousness and Denies palpitations Respiratory: Respiratory: Reports no additional respiratory complaints Gastrointestinal: Gastrointestinal: Reports abdominal pain Genitourinary: Genitourinary: Reports no additional female genitourinary complaints Musculoskeletal: Musculoskeletal: Reports no additional musculoskeletal complaints Integumentary/Breasts: Skin/Breast: Reports system reviewed and no additional complaints, except as docu Neurologic: Reports system reviewed and no additional complaints, except as documented Psychiatric: Psychiatric: Reports no additional psychiatric complaints Endocrine: Endocrine: Denies palpitations PMFSH Past Medical History Medical History Anxiety and depression Diabetes Methadone maintenance therapy patient Polysubstance (excluding opioids) dependence, daily use Social History Social History Alcohol intake: never Patient Tobacco Use Status: Never used Tobacco Use of substances other than those prescribed or required for medical reasons: Yes Substance Use Type: Heroin Substance Use Frequency: Daily Last Used Substance: Hours (ago) Any prior treatment program specific to substance use: Yes (methadone clinic) Advance Directives: Yes Advance Directives on File: Yes Advance Directives Date on File: 01/11/22 Patient : No service: No Current occupational status: employed Meds Allergies Allergy/AdvReac Type Severity Reaction Status Date / Time No Known Allergies Allergy Verified 01/10/22 11:27 Active Medications: Current Medications Acetaminophen (Acetaminophen 325 Mg Tablet) 650 mg PO Q6H PRN PRN Reason: Pain, Mild (Pain Scale 1-3) Dextrose (Dextrose 50 % 25 Gm/50 Ml Syringe) 25 gm IVPUSH Q15M PRN; Protocol PRN Reason: per Hypoglycemia Standing Ord. Enoxaparin Sodium (Enoxaparin Sodium 40 Mg/0.4 Ml Syringe) 40 mg SUBCUT Q24H [facility] Last Admin: 01/10/22 20:46 Dose: 40 mg Documented by: Glucose (Glucose Gel 15 Gm Gel..Gram.) 15 gm PO Q15M PRN; Protocol PRN Reason: per Hypoglycemia Standing Ord. Hydroxyzine HCl (Hydroxyzine Hcl 25 Mg Tablet) 25 mg PO Q6H PRN PRN Reason: anxiety Sodium Chloride (Ns) 1,000 mls @ 100 mls/hr IVCONT .Q10H [facility] Last Infusion: 01/11/22 07:00 Dose: Infused Documented by: Insulin Human Lispro (Insulin Lispro 100 Unit/Ml 3 Ml Vial) 0 unit SUBCUT QIDACHS [facility]; Protocol Last Admin: 01/11/22 07:50 Dose: 6 unit Documented by: Lisinopril (Lisinopril 5 Mg Tablet) 5 mg PO DAILY [facility]; Protocol Last Admin: 01/11/22 08:45 Dose: 5 mg Documented by: Methadone HCl (Methadone Hcl 20 Mg/2 Ml Oral.Conc) 100 mg PO DAILY [facility] Ondansetron HCl (Ondansetron Hcl 4 Mg/2 Ml Vial) 4 mg IVPUSH Q8H PRN PRN Reason: Nausea and Vomiting Sodium Chloride (0.9 % Sodium Chloride Flush 3 Ml Syringe) 3 ml IVFLUSH QSHIFT [facility] Last Admin: 01/11/22 08:45 Dose: Not Given Documented by: Home Medications Medication Instructions Recorded Confirmed Last Taken Type insulin lispro 100 unit/mL 8 - 15 unit SUBCUT BID-TID 01/10/22 01/10/22 01/10/22 History subcutaneous pen (Humalog KwikPen (U-100) Insulin) methadone 10 mg/mL oral concentrate 100 mg PO DAILY 01/10/22 01/09/22 History Physical Exam Vital Signs: Vital Signs: Last Vital Signs Temp 99.0 F 01/11/22 11:36 Pulse 65 01/11/22 11:36 Resp 13 01/11/22 11:36 BP 183/94 H 01/11/22 11:36 Pulse Ox 93 01/11/22 11:36 BMI result Body Mass Index 44.3 Const: General: cooperative, comfortable, no acute distress, alert, awake and poor hygiene Nutritional Appearance: obese Orientation/consciousness: patient oriented x3 Limitations: no limitations HEENT: Head: Yes normocephalic and Yes atraumatic Neck: Neck: Yes trachea midline, Yes supple and Yes no JVD Chest: Chest palpation & inspection: normal inspection of the chest Resp: Effort & Inspection: normal respiratory effort Auscultation: diminished lung sounds Cardio: Jugular venous distension: no JVD Palpation: normal PMI Rate: regular rate Rhythm: regular rhythm Heart sounds: S1 normal heart sound present, S2 normal heart sound present, no click, no gallops, no murmurs and no rubs GI: Auscultation: normal bowel sounds Skin: General skin exam: no rashes or lesions noted Neuro: General: patient oriented x3 and no focal motor deficits Extrem: General: Yes no clubbing, cyanosis or edema Objective Labs and Meds Result diagrams: 01/11/22 07:12 01/11/22 07:12 Lab results: Laboratory Results - last 24 hr 01/10/22 01/10/22 01/10/22 11:39 11:39 15:52 WBC RBC Hgb Hct MCV MCH MCHC RDW Plt Count MPV Immature Gran % (Auto) Neut % (Auto) Lymph % (Auto) [place] % (Auto) Eos % (Auto) Baso % (Auto) Lymph # (Auto) [place] # (Auto) Eos # (Auto) Baso # (Auto) Abs Immat Gran (auto) Absolute Neuts (auto) Absolute Nucleated RBC Nucleated RBC % (auto) D-Dimer High Sensitivty Sodium 134 L Potassium 4.1 Chloride 98 Carbon Dioxide 23 Anion Gap 17 BUN 10 Creatinine 0.97 Estim Creat Clear Calc 105.5 Estimated GFR > 60 POC Glucose Random Glucose 385 H* Estimat Average Glucose Hemoglobin A1c % Calcium 9.7 Total Bilirubin 0.5 Direct Bilirubin 0.2 AST 19 ALT 19 Alkaline Phosphatase 96 Troponin I High Sens 32.5 H 81.8 H* D Total Protein 9.2 H Albumin 3.9 Lipase 23 Urine Color Urine Appearance Urine pH Ur Specific [place] Urine Protein Urine Glucose (UA) Urine Ketones Urine Blood Urine Nitrite Ur Leukocyte Esterase Urine RBC Urine WBC Urine WBC Clumps Ur Squamous Epith Cells Urine Bacteria Urine Mucus Urine Test Urine Opiates Screen Urine Fentanyl Screen Ur Barbiturates Screen Ur Phencyclidine Scrn Ur Amphetamines Screen U Benzodiazepines Scrn Urine Cocaine Screen U Marijuana (THC) Screen COVID-19 (ES) COVID-19 Kybernesis 01/10/22 01/10/22 01/10/22 17:18 17:18 17:18 WBC RBC Hgb Hct MCV MCH MCHC RDW Plt Count MPV Immature Gran % (Auto) Neut % (Auto) Lymph % (Auto) [place] % (Auto) Eos % (Auto) Baso % (Auto) Lymph # (Auto) [place] # (Auto) Eos # (Auto) Baso # (Auto) Abs Immat Gran (auto) Absolute Neuts (auto) Absolute Nucleated RBC Nucleated RBC % (auto) D-Dimer High Sensitivty Sodium Potassium Chloride Carbon Dioxide Anion Gap BUN Creatinine Estim Creat Clear Calc Estimated GFR POC Glucose Random Glucose Estimat Average Glucose Hemoglobin A1c % Calcium Total Bilirubin Direct Bilirubin AST ALT Alkaline Phosphatase Troponin I High Sens Total Protein Albumin Lipase Urine Color YELLOW Urine Appearance CLOUDY Urine pH 5.5 Ur Specific [place] >= 1.030 H Urine Protein 2+ H Urine Glucose (UA) >=1000 H Urine Ketones 40 Urine Blood 3+ H Urine Nitrite NEG Ur Leukocyte Esterase 1+ H Urine RBC 1-4 Urine WBC 15-29 H Urine WBC Clumps NOTED Ur Squamous Epith Cells 4+ Urine Bacteria 4+ Urine Mucus 2+ Urine Test NEGATIVE Urine Opiates Screen POSITIVE H Urine Fentanyl Screen POSITIVE H Ur Barbiturates Screen Not Detected Ur Phencyclidine Scrn Not Detected Ur Amphetamines Screen Not Detected U Benzodiazepines Scrn Not Detected Urine Cocaine Screen Not Detected U Marijuana (THC) Screen POSITIVE H COVID-19 (ES) COVID-19 Kybernesis 01/10/22 01/10/22 01/11/22 20:38 23:43 01:49 WBC RBC Hgb Hct MCV MCH MCHC RDW Plt Count MPV Immature Gran % (Auto) Neut % (Auto) Lymph % (Auto) [place] % (Auto) Eos % (Auto) Baso % (Auto) Lymph # (Auto) [place] # (Auto) Eos # (Auto) Baso # (Auto) Abs Immat Gran (auto) Absolute Neuts (auto) Absolute Nucleated RBC Nucleated RBC % (auto) D-Dimer High Sensitivty 333 Sodium Potassium Chloride Carbon Dioxide Anion Gap BUN Creatinine Estim Creat Clear Calc Estimated GFR POC Glucose 276 H Random Glucose Estimat Average Glucose Hemoglobin A1c % Calcium Total Bilirubin Direct Bilirubin AST ALT Alkaline Phosphatase Troponin I High Sens Total Protein Albumin Lipase Urine Color Urine Appearance Urine pH Ur Specific [place] Urine Protein Urine Glucose (UA) Urine Ketones Urine Blood Urine Nitrite Ur Leukocyte Esterase Urine RBC Urine WBC Urine WBC Clumps Ur Squamous Epith Cells Urine Bacteria Urine Mucus Urine Test Urine Opiates Screen Urine Fentanyl Screen Ur Barbiturates Screen Ur Phencyclidine Scrn Ur Amphetamines Screen U Benzodiazepines Scrn Urine Cocaine Screen U Marijuana (THC) Screen COVID-19 (ES) Negative COVID-19 Clin Com See Note 01/11/22 01/11/22 01/11/22 07:12 07:12 07:12 WBC 12.8 H RBC 4.78 Hgb 12.4 Hct 39.3 MCV 82.2 MCH 25.9 L MCHC 31.6 RDW 13.9 Plt Count 352 D MPV 9.2 L Immature Gran % (Auto) 0.3 Neut % (Auto) 67.7 Lymph % (Auto) 26.7 [place] % (Auto) 4.7 Eos % (Auto) 0.2 Baso % (Auto) 0.4 Lymph # (Auto) 3.4 [place] # (Auto) 0.6 Eos # (Auto) 0.0 Baso # (Auto) 0.1 Abs Immat Gran (auto) 0.04 H Absolute Neuts (auto) 8.6 H Absolute Nucleated RBC 0.000 Nucleated RBC % (auto) 0.0 D-Dimer High Sensitivty Sodium 135 Potassium 4.2 Chloride 99 Carbon Dioxide 27 Anion Gap 13 BUN 13 Creatinine 0.91 Estim Creat Clear Calc 112.5 Estimated GFR > 60 POC Glucose Random Glucose 333 H Estimat Average Glucose Hemoglobin A1c % Calcium 9.1 D Total Bilirubin Direct Bilirubin AST ALT Alkaline Phosphatase Troponin I High Sens 40.3 H D Total Protein Albumin Lipase Urine Color Urine Appearance Urine pH Ur Specific [place] Urine Protein Urine Glucose (UA) Urine Ketones Urine Blood Urine Nitrite Ur Leukocyte Esterase Urine RBC Urine WBC Urine WBC Clumps Ur Squamous Epith Cells Urine Bacteria Urine Mucus Urine Test Urine Opiates Screen Urine Fentanyl Screen Ur Barbiturates Screen Ur Phencyclidine Scrn Ur Amphetamines Screen U Benzodiazepines Scrn Urine Cocaine Screen U Marijuana (THC) Screen COVID-19 (ES) COVID-19 ThinkHR Com 01/11/22 01/11/22 01/11/22 07:12 07:14 11:39 WBC RBC Hgb Hct MCV MCH MCHC RDW Plt Count MPV Immature Gran % (Auto) Neut % (Auto) Lymph % (Auto) [place] % (Auto) Eos % (Auto) Baso % (Auto) Lymph # (Auto) [place] # (Auto) Eos # (Auto) Baso # (Auto) Abs Immat Gran (auto) Absolute Neuts (auto) Absolute Nucleated RBC Nucleated RBC % (auto) D-Dimer High Sensitivty Sodium Potassium Chloride Carbon Dioxide Anion Gap BUN Creatinine Estim Creat Clear Calc Estimated GFR POC Glucose 299 H 262 H Random Glucose Estimat Average Glucose 352 Hemoglobin A1c % 13.9 Calcium Total Bilirubin Direct Bilirubin AST ALT Alkaline Phosphatase Troponin I High Sens Total Protein Albumin Lipase Urine Color Urine Appearance Urine pH Ur Specific [place] Urine Protein Urine Glucose (UA) Urine Ketones Urine Blood Urine Nitrite Ur Leukocyte Esterase Urine RBC Urine WBC Urine WBC Clumps Ur Squamous Epith Cells Urine Bacteria Urine Mucus Urine Test Urine Opiates Screen Urine Fentanyl Screen Ur Barbiturates Screen Ur Phencyclidine Scrn Ur Amphetamines Screen U Benzodiazepines Scrn Urine Cocaine Screen U Marijuana (THC) Screen COVID-19 (ES) COVID-19 Clin Com Imaging Radiologist's impression: Impressions Chest X-Ray 01/10/22 11:50 IMPRESSION: Slight eventration or elevation of the right hemidiaphragm otherwise unremarkable exam. Abdomen/Pelvis CT 01/10/22 18:04 IMPRESSION: There is equivocal wall thickening of the sigmoid colon. The sigmoid colon is collapsed so the appearance may simply be due to underdistention but a subtle colitis could give this appearance as well. No pericolonic fluid or fat stranding to strongly suggest an acute infectious or inflammatory process. Assessment and Plan (1) Elevated troponin: Status: Acute abnormal rise and fall of troponin in this young woman presenting with cyclic vomiting syndrome. Possible etiologies include stress-induced cardiomyopathy related to repeated vomiting, hypertension related subendocardial ischemia or diaphragmatic inflammation. Will obtain echocardiogram to assess for apical ballooning syndrome. Better control of blood pressure is needed. Consider adding Norvasc as well as lisinopril to her regimen. Discussed with patient about compliance of medications. In the long run she is at high risk for developing cardiovascular issues given her weight, hypertension diabetes for which she is noncompliant. This was discussed with her. Discussed with her about marijuana causing cyclic vomiting syndrome and avoided. Shows apprised to know this. Based on the echocardiographic finding further treatment plan will be pursued. Will sign of the case at this point in Procedures Date of Service Date of Service: 01/11/22
[2022-01-11] MEDS: methADONE HCl 20 MG/2 ML ORAL.CONC 100 MG PO (12:34)
--- NOTE | 2022-01-11 13:05 | HO.PM.IMPN ---
Subjective Subjective Date of Service: 01/11/22 Interval History: cc: michael interval history:anxiuoes Cardiovascular Cardiovascular: Reports no additional cardiovascular complaints Gastrointestinal Gastrointestinal: Reports no additional gastrointestinal complaints Physical Exam Vital Signs: Vital Signs: Last Vital Signs Temp 99.0 F 01/11/22 11:36 Pulse 65 01/11/22 11:36 Resp 13 01/11/22 11:36 BP 183/94 H 01/11/22 11:36 Pulse Ox 93 01/11/22 11:36 BMI result Body Mass Index 44.3 General: AO X 3, no acute distress Resp: CTA bilateral, no accessory muscles used CVS: S1,S2,RRR GI: soft, non tender, non distended Neuro: motor grossly intact, alert Psych: appropriate affect, appropriate insight Objective Data Active Medications Acetaminophen (Acetaminophen 325 Mg Tablet) 650 mg PO Q6H PRN PRN Reason: Pain, Mild (Pain Scale 1-3) Dextrose (Dextrose 50 % 25 Gm/50 Ml Syringe) 25 gm IVPUSH Q15M PRN; Protocol PRN Reason: per Hypoglycemia Standing Ord. Enoxaparin Sodium (Enoxaparin Sodium 40 Mg/0.4 Ml Syringe) 40 mg SUBCUT Q24H [facility] Last Admin: 01/10/22 20:46 Dose: 40 mg Documented by: LINDSEY Glucose (Glucose Gel 15 Gm Gel..Gram.) 15 gm PO Q15M PRN; Protocol PRN Reason: per Hypoglycemia Standing Ord. Hydroxyzine HCl (Hydroxyzine Hcl 25 Mg Tablet) 25 mg PO Q6H PRN PRN Reason: anxiety Sodium Chloride (Ns) 1,000 mls @ 100 mls/hr IVCONT .Q10H [facility] Last Infusion: 01/11/22 07:00 Dose: 0 mls/hr Documented by: MOIZ Insulin Human Lispro (Insulin Lispro 100 Unit/Ml 3 Ml Vial) 0 unit SUBCUT QIDACHS [facility]; Protocol Last Admin: 01/11/22 07:50 Dose: 6 unit Documented by: BRYAN Lisinopril (Lisinopril 5 Mg Tablet) 5 mg PO DAILY [facility]; Protocol Last Admin: 01/11/22 08:45 Dose: 5 mg Documented by: BRYAN Methadone HCl (Methadone Hcl 20 Mg/2 Ml Oral.Conc) 100 mg PO DAILY [facility] Last Admin: 01/11/22 12:34 Dose: 100 mg Documented by: TONY Ondansetron HCl (Ondansetron Hcl 4 Mg/2 Ml Vial) 4 mg IVPUSH Q8H PRN PRN Reason: Nausea and Vomiting Sodium Chloride (0.9 % Sodium Chloride Flush 3 Ml Syringe) 3 ml IVFLUSH QSHIFT [facility] Last Admin: 01/11/22 08:45 Dose: Not Given Documented by: BRYAN Non-Admin Reason: IV Running Labs CBC & Chem 7: 01/11/22 07:12 01/11/22 07:12 Labs: Laboratory Results - last 24 hr 01/10/22 01/10/22 01/10/22 11:39 15:52 17:18 MCV MCH MCHC RDW Plt Count MPV Immature Gran % (Auto) Neut % (Auto) Lymph % (Auto) [place] % (Auto) Eos % (Auto) Baso % (Auto) Lymph # (Auto) [place] # (Auto) Eos # (Auto) Baso # (Auto) Abs Immat Gran (auto) Absolute Neuts (auto) Absolute Nucleated RBC Nucleated RBC % (auto) D-Dimer High Sensitivty Anion Gap Estim Creat Clear Calc Estimated GFR POC Glucose Random Glucose Estimat Average Glucose Hemoglobin A1c % Calcium Total Bilirubin 0.5 Direct Bilirubin 0.2 AST 19 ALT 19 Alkaline Phosphatase 96 Troponin I High Sens 81.8 H* D Total Protein 9.2 H Albumin 3.9 Lipase 23 Urine Color YELLOW Urine Appearance CLOUDY Urine pH 5.5 Ur Specific [place] >= 1.030 H Urine Protein 2+ H Urine Glucose (UA) >=1000 H Urine Ketones 40 Urine Blood 3+ H Urine Nitrite NEG Ur Leukocyte Esterase 1+ H Urine RBC 1-4 Urine WBC 15-29 H Urine WBC Clumps NOTED Ur Squamous Epith Cells 4+ Urine Bacteria 4+ Urine Mucus 2+ Urine Test Urine Opiates Screen Urine Fentanyl Screen Ur Barbiturates Screen Ur Phencyclidine Scrn Ur Amphetamines Screen U Benzodiazepines Scrn Urine Cocaine Screen U Marijuana (THC) Screen COVID-19 (ES) COVID-19 Clin Com 01/10/22 01/10/22 01/10/22 17:18 17:18 20:38 MCV MCH MCHC RDW Plt Count MPV Immature Gran % (Auto) Neut % (Auto) Lymph % (Auto) [place] % (Auto) Eos % (Auto) Baso % (Auto) Lymph # (Auto) [place] # (Auto) Eos # (Auto) Baso # (Auto) Abs Immat Gran (auto) Absolute Neuts (auto) Absolute Nucleated RBC Nucleated RBC % (auto) D-Dimer High Sensitivty Anion Gap Estim Creat Clear Calc Estimated GFR POC Glucose 276 H Random Glucose Estimat Average Glucose Hemoglobin A1c % Calcium Total Bilirubin Direct Bilirubin AST ALT Alkaline Phosphatase Troponin I High Sens Total Protein Albumin Lipase Urine Color Urine Appearance Urine pH Ur Specific [place] Urine Protein Urine Glucose (UA) Urine Ketones Urine Blood Urine Nitrite Ur Leukocyte Esterase Urine RBC Urine WBC Urine WBC Clumps Ur Squamous Epith Cells Urine Bacteria Urine Mucus Urine Test NEGATIVE Urine Opiates Screen POSITIVE H Urine Fentanyl Screen POSITIVE H Ur Barbiturates Screen Not Detected Ur Phencyclidine Scrn Not Detected Ur Amphetamines Screen Not Detected U Benzodiazepines Scrn Not Detected Urine Cocaine Screen Not Detected U Marijuana (THC) Screen POSITIVE H COVID-19 (ES) COVID-19 Incomparable Things [facility] 01/10/22 01/11/22 01/11/22 23:43 01:49 07:12 MCV 82.2 MCH 25.9 L MCHC 31.6 RDW 13.9 Plt Count 352 D MPV 9.2 L Immature Gran % (Auto) 0.3 Neut % (Auto) 67.7 Lymph % (Auto) 26.7 [place] % (Auto) 4.7 Eos % (Auto) 0.2 Baso % (Auto) 0.4 Lymph # (Auto) 3.4 [place] # (Auto) 0.6 Eos # (Auto) 0.0 Baso # (Auto) 0.1 Abs Immat Gran (auto) 0.04 H Absolute Neuts (auto) 8.6 H Absolute Nucleated RBC 0.000 Nucleated RBC % (auto) 0.0 D-Dimer High Sensitivty 333 Anion Gap Estim Creat Clear Calc Estimated GFR POC Glucose Random Glucose Estimat Average Glucose Hemoglobin A1c % Calcium Total Bilirubin Direct Bilirubin AST ALT Alkaline Phosphatase Troponin I High Sens Total Protein Albumin Lipase Urine Color Urine Appearance Urine pH Ur Specific [place] Urine Protein Urine Glucose (UA) Urine Ketones Urine Blood Urine Nitrite Ur Leukocyte Esterase Urine RBC Urine WBC Urine WBC Clumps Ur Squamous Epith Cells Urine Bacteria Urine Mucus Urine Test Urine Opiates Screen Urine Fentanyl Screen Ur Barbiturates Screen Ur Phencyclidine Scrn Ur Amphetamines Screen U Benzodiazepines Scrn Urine Cocaine Screen U Marijuana (THC) Screen COVID-19 (ES) Negative COVID-19 Clin Com See Note 01/11/22 01/11/22 01/11/22 07:12 07:12 07:12 MCV MCH MCHC RDW Plt Count MPV Immature Gran % (Auto) Neut % (Auto) Lymph % (Auto) [place] % (Auto) Eos % (Auto) Baso % (Auto) Lymph # (Auto) [place] # (Auto) Eos # (Auto) Baso # (Auto) Abs Immat Gran (auto) Absolute Neuts (auto) Absolute Nucleated RBC Nucleated RBC % (auto) D-Dimer High Sensitivty Anion Gap 13 Estim Creat Clear Calc 112.5 Estimated GFR > 60 POC Glucose Random Glucose 333 H Estimat Average Glucose 352 Hemoglobin A1c % 13.9 Calcium 9.1 D Total Bilirubin Direct Bilirubin AST ALT Alkaline Phosphatase Troponin I High Sens 40.3 H D Total Protein Albumin Lipase Urine Color Urine Appearance Urine pH Ur Specific [place] Urine Protein Urine Glucose (UA) Urine Ketones Urine Blood Urine Nitrite Ur Leukocyte Esterase Urine RBC Urine WBC Urine WBC Clumps Ur Squamous Epith Cells Urine Bacteria Urine Mucus Urine Test Urine Opiates Screen Urine Fentanyl Screen Ur Barbiturates Screen Ur Phencyclidine Scrn Ur Amphetamines Screen U Benzodiazepines Scrn Urine Cocaine Screen U Marijuana (THC) Screen COVID-19 (ES) COVID-19 Clin Com 01/11/22 01/11/22 07:14 11:39 MCV MCH MCHC RDW Plt Count MPV Immature Gran % (Auto) Neut % (Auto) Lymph % (Auto) [place] % (Auto) Eos % (Auto) Baso % (Auto) Lymph # (Auto) [place] # (Auto) Eos # (Auto) Baso # (Auto) Abs Immat Gran (auto) Absolute Neuts (auto) Absolute Nucleated RBC Nucleated RBC % (auto) D-Dimer High Sensitivty Anion Gap Estim Creat Clear Calc Estimated GFR POC Glucose 299 H 262 H Random Glucose Estimat Average Glucose Hemoglobin A1c % Calcium Total Bilirubin Direct Bilirubin AST ALT Alkaline Phosphatase Troponin I High Sens Total Protein Albumin Lipase Urine Color Urine Appearance Urine pH Ur Specific [place] Urine Protein Urine Glucose (UA) Urine Ketones Urine Blood Urine Nitrite Ur Leukocyte Esterase Urine RBC Urine WBC Urine WBC Clumps Ur Squamous Epith Cells Urine Bacteria Urine Mucus Urine Test Urine Opiates Screen Urine Fentanyl Screen Ur Barbiturates Screen Ur Phencyclidine Scrn Ur Amphetamines Screen U Benzodiazepines Scrn Urine Cocaine Screen U Marijuana (THC) Screen COVID-19 (ES) COVID-19 Clin Com Microbiology Microbiology Results: Microbiology 01/10/22 17:18 Urine Culture - Preliminary Urine clean catch - Urine lynn top Culture too young to evaluate. Assessment and Plan (1) Opiate abuse, continuous: Status: Acute Plan 36F presented with chest discomfort, [place] and vomitting chest discomfort [place] MSK, but mild troponemia, check echo n/v associated with cannibas antiemetics opiated dependence methadone htn uncontrolled lisinopril start amldoipine morbid obesity weight loss DM insulin dvt prophylaxis - lovenox full code reason for continued hospitalization:awaiting echo Quality Stroke Does the patient have a stroke diagnosis?: No VTE Prior VTE?: No VTE Risk Level:: Medical - moderate - high VTE Device Contraindication: Treatment Not Indicated VTE Drug Contraindication: N/A - Med Ordered
[2022-01-11 13:31] LABS: Glucose, Whole Blood 241 mg/dL (60-115)
[2022-01-11] MEDS: amLODIPine Besylate 5 MG TABLET PO (14:21)
[2022-01-11] MEDS: ondansetron HCL 4 MG/2 ML VIAL IVPUSH ×2 (14:21→19:46)
[2022-01-11] MEDS: 0.9 % Sodium Chloride 1,000 ML 100 ML IVCONT ×2 (14:22→23:40)
--- NOTE | 2022-01-11 15:51 | PC.NURSE ---
pt sleeping comfortably, NaCl running @ 100mL/hr.
--- NOTE | 2022-01-11 16:15 | MHC.RECOVRN ---
Met with pt in [facility] to discuss substance use and recovery supports. Upon entering room, pt in bed, attempting to sleep. T/w introduced self and role, pt requested t/w return at another time. Pt denies current withdrawal symptoms. Recovery resources left at bedside. Discussed with Marivel Bentley APRN.
[2022-01-11 18:09] LABS: Glucose, Whole Blood 203 mg/dL (60-115)
[2022-01-11] MEDS: Acetaminophen 325 MG TABLET 650 MG PO (18:51)
--- NOTE | 2022-01-11 18:56 | PC.NURSE ---
pt a&ox3, vss, c/o 11/10 headache and nausea, COWS=2, medicated per provider order, PRN tylenol given. provider notified re nausea.
--- NOTE | 2022-01-11 19:48 | PC.NURSE ---
medicated w PRN zofran - early administration okay per provider, EKG repeated, QTc remains stable.
[2022-01-11] MEDS: Enoxaparin Sodium 40 MG/0.4 ML SYRINGE SUBCUT (20:22)
--- NOTE | 2022-01-11 20:26 | PC.NURSE ---
medicated per provider order.
[2022-01-11 21:13] LABS: Glucose, Whole Blood 243 mg/dL (60-115)
--- NOTE | 2022-01-11 21:19 | PC.NURSE ---
medicated w insulin per sliding scale protocol, pt requesting TV remote.
[2022-01-12] MEDS: hydrOXYzine HCL 25 MG TABLET PO (01:16)
[2022-01-12 07:25] LABS: Glucose, Whole Blood 264 mg/dL (60-115)
[2022-01-12] MEDS: ondansetron HCL 4 MG/2 ML VIAL IVPUSH (07:50)
[2022-01-12 07:59] LABS: Hematocrit 39.3 % (37.0-47.0); Hemoglobin 12.7 g/dl (12.0-16.0); Mean Corpuscular HGB Conc 32.3 g/dl (31.0-35.0); Mean Corpuscular Hemoglobin 26.1 pg (27.0-33.0); Mean Corpuscular Volume 80.7 fL (80.0-98.0); Mean Platelet Volume 9.4 fL (9.4-12.3); Platelet Count 368 X10*3/uL (160-400); Red Blood Count 4.87 X10*6/uL (4.20-5.50); Red Cell Distribution Width 13.9 % (11.0-16.0); White Blood Count 11.4 X10*3/uL (4.8-10.8)
[2022-01-12] MEDS: Insulin Lispro 100 UNIT/ML 3 ML VIAL SUBCUT (08:01)
[2022-01-12] MEDS: amLODIPine Besylate 5 MG TABLET PO (08:02)
[2022-01-12] MEDS: lisinopriL 5 MG TABLET PO (08:02)
[2022-01-12] MEDS: methADONE HCl 20 MG/2 ML ORAL.CONC 100 MG PO (08:05)
[2022-01-12 08:16] LABS: Anion Gap 14 (12-20); Blood Urea Nitrogen 9 mg/dL (9-16); Calcium 8.8 mg/dL (8.4-10.2); Carbon Dioxide 23 mmol/L (22-29); Chloride 99 mmol/L (96-108); Creatinine Clr Calc Pharmacy 123.3; Estimated Glomerular Filt Rate > 60; Glucose Fasting 301 mg/dL (60-99); Potassium 3.9 mmol/L (3.3-5.1); Sodium 132 mmol/L (135-145)
[2022-01-12 09:21] VITALS: BP 137/77; PULSE 76
--- NOTE | 2022-01-12 10:19 | PM.DS ---
DS: Providers Provider Date of Service: 01/12/22 Date of admission: 01/10/22 19:10 Primary care physician: None Physician Consults: 01/10/22 19:10 Consult to Cardiology Routine Consulting Provider: Russ Duran Reason for consultation: elevated troponins 01/10/22 19:14 Addiction Medicine Routine Consulting Provider: Marivel Bentley Reason for consultation: heroin abuse DS: Diagnosis Discharge Diagnosis (1) Opiate abuse, continuous: Status: Acute DS: Summary Hospital Course Hospital Course: from initial hpi: Chief Complaint: Nausea/vomiting 36-year-old female with a past medical history of hypertension, diabetes, noncompliant with home medications, opiate dependence on methadone program, heroin abuse, cannabis abuse presented to the hospital with a chief complaint of nausea and vomiting.? Patient reports that for the past 5 days she has been having multiple episodes of nausea and vomiting; has bilious vomitus; denies any blood in the vomitus.? Denies any diarrhea.? Reports abdominal discomfort and-discomfort.? Attributes that chest discomfort to her bone/multiple episodes of vomiting; worsens with deep inspiration.? Denies any numbness tingling or focal weakness.? Denies any diarrhea.? Denies any urinary symptoms.? Review of all other systems is negative except mentioned above ER course: Per ER team patient noted to have elevated systolic blood pressure on presentation; had multiple episodes of vomiting; given IV fluids, Zofran, lorazepam, Pepcid with mild improvement in the symptoms; noted to elevated troponins; EKG was nonischemic; discussed with Dr. Duran who suggested no heparin drip.? Admitted for further management. hospital course: Patient was admitted for chest discomfort which was likely musculoskeletal due to retching, though there was concern due to mild troponin E [place]. She was seen by Cardiology who recommended echocardiogram which was unremarkable. Patient's nausea vomiting was either viral gastroenteritis versus cannabis induced. She improved antiemetics and was able to tolerate p.o. for her opiate dependence she was continue methadone. For patient's hypertension, blood pressure was uncontrolled and she will be started on amlodipine and lisinopril. For her morbid obesity weight loss is recommended. For her diabetes she will continue insulin. Time Spent with Patient Time attestation: Total time spent providing and/or coordinating discharge services: Discharge coordination time: Greater than 30 minutes Quality: Safe Use of Opioids Does Pt have an Active Cancer Diagnosis on the Problem List?: No Quality: Stroke Does the patient have a stroke diagnosis?: No Physical Exam Vital Signs: Vital Signs: Last Vital Signs Temp 98.0 F 01/11/22 19:52 Pulse 76 01/12/22 09:21 Resp 12 01/11/22 19:52 BP 137/77 01/12/22 09:21 Pulse Ox 97 01/11/22 19:52 BMI result Body Mass Index 44.3 General: AO X 3, no acute distress Resp: CTA bilateral, no accessory muscles used CVS: S1,S2,RRR GI: soft, non tender, non distended Neuro: motor grossly intact, alert Psych: appropriate affect, appropriate insight DS: Data Data Completed and Pending Labs on day of discharge: Laboratory Results - last 24 hr 01/11/22 01/11/22 01/11/22 11:39 13:23 18:07 WBC RBC Hgb Hct MCV MCH MCHC RDW Plt Count MPV Absolute Nucleated RBC Nucleated RBC % (auto) Sodium Potassium Chloride Carbon Dioxide Anion Gap BUN Creatinine Estim Creat Clear Calc Estimated GFR POC Glucose 262 H 241 H 203 H Fasting Glucose Calcium 01/11/22 01/12/22 01/12/22 21:08 07:00 07:21 WBC 11.4 H RBC 4.87 Hgb 12.7 Hct 39.3 MCV 80.7 MCH 26.1 L MCHC 32.3 RDW 13.9 Plt Count 368 MPV 9.4 Absolute Nucleated RBC 0.000 Nucleated RBC % (auto) 0.0 Sodium Potassium Chloride Carbon Dioxide Anion Gap BUN Creatinine Estim Creat Clear Calc Estimated GFR POC Glucose 243 H 264 H Fasting Glucose Calcium 01/12/22 07:31 WBC RBC Hgb Hct MCV MCH MCHC RDW Plt Count MPV Absolute Nucleated RBC Nucleated RBC % (auto) Sodium 132 L Potassium 3.9 Chloride 99 Carbon Dioxide 23 Anion Gap 14 BUN 9 Creatinine 0.83 Estim Creat Clear Calc 123.3 Estimated GFR > 60 POC Glucose Fasting Glucose 301 H Calcium 8.8 Preliminary micro results at discharge 01/10/22 17:18 Urine Culture - Preliminary Urine clean catch - Urine lynn top Culture too young to evaluate. Discharge Plan Discharge Patient Disposition: Home, Self-Care Discharge Diagnosis: vomitting Referrals: Physician,None [Primary Care Provider] - 1 Week Discharge Medications: New amlodipine 5 mg Tablet 5 mg PO DAILY Qty: 30 0RF Protocol: Hold for SBP< HOLD for SBP < : 90 lisinopril 5 mg Tablet 5 mg PO DAILY Qty: 30 0RF Protocol: Hold for SBP< HOLD for SBP < : 90 Continued methadone 10 mg/mL Concentrate 100 mg PO DAILY 0RF insulin lispro [Humalog KwikPen Insulin] 100 unit/mL insulin pen 8 - 15 unit subcut BID-TID 0RF Rx Instructions: pt states she is on a sliding scale from 8 - 15 units SC twice to three times daily Discharge Orders: Discharge Order (Routine); Ordered 01/12/22 Ordered By: Gonzalez Pathak Diet: advance to usual diet Activity on Discharge: As tolerated Stand Alone Forms: Patient Portal Discharge page Care Plan Goals: recovery Health Concerns: htn Plan of Treatment: start amlodipine, lisinopril, follow up with pcp Assessment: see above
--- NOTE | 2022-01-12 13:39 | MHC.RECOVRN ---
Met with pt to follow up regarding substance use. Pt reports being on methadone through [facility] x 1 year, currently at 100 mg daily. Pt reports this is going well and has decreased substance use. Pt reports hx of using up to 2 Bs in one shot but is currently using 5-10 bags daily, IV, x about 1 year. Reports marijuana use, denies other substances. Pt has a counselor at [facility] who she sees weekly, finds this helpful. Pt reports substance use typically correlates with mood, pt states I use behind closed doors when I'm depressed. Family hx of substance use, brother and sister of substance related problems. Pt currently lives with 19 year old daughter and dog. As far as other supports, pt names uncle as primary support. Pt has been thinking about ATS, however, is unsure if she is willing to go today. Pt encouraged to reach out to t/w if and when that changes if assistance is needed. Pt educated regarding other recovery supports and services, declines at this time. Pt provided with written resources as well as t/w contact information if needed. Discussed with Marivel Bentley APRN.
--- NOTE | 2022-01-12 15:02 | PM.EVENT ---
Event Note Date of Service: 01/12/22 Event Note: Addiction Note: -Please see Recovery Support RN note.
== END 2022-01-12 13:00 | disposition home or self-care (01) | DRG 249 ==
LOC: HO.ED 19:19 → HO.EDOVER 19:31
PROVIDERS: Family Medicine; Admitting Provider Hospitalist; Emergency Provider Emergency Medicine; Visit Provider Internal Medicine
DX: A08.4 Viral intestinal infection, unspecified (principal); E11.9 Type 2 diabetes mellitus without complications; R11.15 Cyclical vomiting syndrome unrelated to migraine; F11.20 Opioid dependence, uncomplicated; F12.188 Cannabis abuse with other cannabis-induced disorder; I16.0 Hypertensive urgency; F32.A Depression, unspecified; F41.9 Anxiety disorder, unspecified; I10 Essential (primary) hypertension; Z91.14 Patient's other noncompliance with medication regimen; Z20.822 Contact with and (suspected) exposure to COVID-19; Z79.4 Long term (current) use of insulin; Z79.899 Other long term (current) drug therapy
CPT/HCPCS: 36415; 71045; 74176; 80048; 80076; 80307; 81001; 81025; 82947; 83036; 83690; 84484; 85025; 85027; 85379; 87086; 87635; 93005; 93306; 96361; 96374; 96375; 96376; 99219; 99285; J1650; J2060; J2405; J2765

== ENCOUNTER 2022-06-30 08:35 | Emergency (ER) | payer OTHER, SELFPAY ==
[2022-06-30 08:43] VITALS: BP 180/101; PULSE 73; RESP 18; TEMP 36.6; O2SAT 98; BMI 43.3
--- NOTE | 2022-06-30 09:29 | ED_ITS ---
HPI - General Adult General Chief complaint: General Medical Stated complaint: vomiting/high BP Time Seen by Provider: 06/30/22 09:28 Source: patient Mode of arrival: ambulatory History of Present Illness HPI narrative: 37-year-old female with a past medical history of HTN, diabetes, noncompliant with home medications, opiate dependence on methadone program, heroin abuse, cannabis abuse, anxiety/depression presenting to the ED complaining upper abdominal cramping, nausea, vomiting since yesterday with decreased p.o. intake. Reports daily heroin use. Also reports ran out of insulin and antihypertensives months ago, does not check glucose at home. Denies suspicious food intake, fever, chills, diarrhea/constipation, dysuria/hematuria, CP/SOB, headache Onset (ago): day(s) Related Data Home Medications Medication Instructions Recorded Confirmed insulin lispro 100 unit/mL 8 - 15 unit subcut BID-TID 01/10/22 01/10/22 subcutaneous pen (Humalog KwikPen (U-100) Insulin) methadone 10 mg/mL oral concentrate 100 mg PO DAILY 01/10/22 01/11/22 Previous Rx's Medication Instructions Recorded amlodipine 5 mg tablet 5 mg PO DAILY #30 tabs 01/12/22 lisinopril 5 mg tablet 5 mg PO DAILY #30 tabs 01/12/22 amlodipine 5 mg tablet 5 mg PO DAILY 1 month #30 tabs 06/30/22 insulin lispro 100 unit/mL 1 sliding scale dose subcut .achs 06/30/22 subcutaneous pen #15 mL lisinopril 5 mg tablet 5 mg PO DAILY 1 month #30 tabs 06/30/22 ondansetron 4 mg disintegrating 4 mg PO Q8H PRN nausea and 06/30/22 tablet vomiting #10 tabs Allergies Allergy/AdvReac Type Severity Reaction Status Date / Time No Known Allergies Allergy Verified 01/10/22 11:27 Review of Systems Review of Systems: Constitutional: No Fever, No Chills, No Fatigue, No Malaise ENT/Mouth: No Ear Pain, No Nasal Congestion, No Sinus Pain, No Hoarseness, No sore throat, No Rhinorrhea, No Swallowing Difficulty Eyes: No Eye Pain, No Swelling, No Redness, No Vision Changes Cardiovascular: No Chest Pain, No SOB, No Edema, No Palpitations Respiratory: No Cough, No Sputum, No Wheezing, No Dyspnea Gastrointestinal: + Nausea, + Vomiting, No Diarrhea, No Constipation, + Abdominal pain Genitourinary: No irregular bleeding, No Dysuria, No Urinary Frequency, No Hematuria, No Urinary Incontinence/retention, No Flank Pain, No Urinary Flow Changes, No Hesitancy Musculoskeletal: No joint pain, No Myalgias, No Joint Swelling Skin: No Skin Lesions, No rash Neuro: No Weakness, No Numbness, No Paresthesias, No Dizziness, No Headache Yes all other systems are reviewed and are negative Constitutional: Constitutional: Reports as per [facility] Past Medical History Attestation statement: The following information was validated with the patient. Medical History Anxiety and depression Diabetes Methadone maintenance therapy patient Polysubstance (excluding opioids) dependence, daily use Social History Social History Alcohol intake: never Patient Tobacco Use Status: Never used Tobacco Use of substances other than those prescribed or required for medical reasons: Yes Substance Use Type: Heroin Substance Use Frequency: Daily Advance Directives: Yes Advance Directives on File: Yes Advance Directives Date on File: 01/11/22 service: No Current occupational status: employed Physical Exam ED Vital Signs: Vital Signs - 24 hr 06/30/22 08:43 06/30/22 11:23 06/30/22 12:45 Temperature 98 F Pulse Rate 73 60 58 Respiratory Rate 18 16 16 Blood Pressure 180/101 H 164/94 H 147/51 H Pulse Oximetry 98 97 98 Oxygen Delivery Method Room Air Room Air Room Air BMI result Body Mass Index 43.3 Const General: cooperative, healthy appearing and no acute distress Orientation/consciousness: patient oriented x3 Limitations: no limitations HENMT Head: Yes normal to inspection and Yes atraumatic Ears: hearing grossly normal bilaterally General nose exam: Normal external nose present Face and sinus: Yes normal facial exam Eyes General: appearance normal, both eyes and all related structures EOM: EOMs intact bilaterally Neck Neck: Yes normal visual inspection and Yes no meningeal signs Resp Effort & Inspection: normal respiratory effort and no respiratory distress Auscultation: clear to auscultation bilaterally, no crackles, no rales, no rhonchi and no wheezes Cardio Rate: regular rate Heart sounds: S1 normal heart sound present and S2 normal heart sound present GI Inspection: Yes normal to inspection Palpation (GI): Soft to palpation, Tenderness to palpation present (GI) in the epigastrum; with no rebound tenderness, no guarding and not rigid General: Yes no CVA tenderness Back/Spine/Pelvis Back: no CVA tenderness Skin Other: Track garcia noted upper extremities Rashes: no rashes Neuro General: patient oriented x3, tone normal and no meningeal signs Gait exam (Neuro): Normal gait present Extrem General: Yes normal to inspection Course Course Course Narrative: -1140--mild leukocytosis of 12.8 > likely from a vomiting. Tox screen positive for opiates, fentanyl, and THC -1154--glucose 354, no anion gap, acetone moderate, low susicion for DKA > will recheck POC and give 5 units IV insulin. -Troponin elevated to 79.9 > elevated priors denies chest pain at this time >> will obtain 3 hour repeat -UA contaminated, will hold on antibiotics at this time >> patient is tolerating p.o. Reports symptomatic improvement at this time -repeat troponin 60.4, UT unlikely. - repeat POC 247 after a total 10U IV insulin. Patient reports symptomatic improvement, nontoxic appearing, tolerating p.o. > will give additional 5 units subQ insulin prior to discharge Procedures EJ/Peripheral Line Neck R: Skin Cleansed in Sterile Fashion: Yes Size (gauge): 18 IV Secured and Dressing Applied: Yes Patient Tolerated Procedure: well Additional Comments: into R IJ with US guidance Medical Decision Making MDM Narrative Medical decision making narrative: 37-year-old female with a past medical history of HTN, diabetes, noncompliant with home medications, opiate dependence on methadone program, heroin abuse, cannabis abuse, anxiety/depression presenting to the ED complaining upper abdominal cramping, nausea, vomiting since yesterday with decreased p.o. intake. On exam hypertensive, NAD, nontoxic appearing, abdomen soft with mild epigastric tenderness, no rebound or guarding, lungs CTA. Concern for cyclical vomiting vs dehydration vs hyperglycemia/DKA vs pancreatitis. Lower suspicion for cholecystitis/lithiasis, appendicitis or diverticulitis. Low suspicion for hypertensive urgency/emergency Plan: EKG, labs, UA, IVF, symptomatic treatment, re-evaluate Medical Records Medical records reviewed: Yes I reviewed the patient's medical records. Lab Data Lab results reviewed: Yes I reviewed the patient's lab results. Result diagrams: 06/30/22 11:16 06/30/22 11:16 Labs: Lab Results 06/30/22 06/30/22 06/30/22 Range/Units 11:16 11:16 11:16 WBC 12.8 H (4.8-10.8) X10*3/uL RBC 4.62 (4.20-5.50) X10*6/uL Hgb 12.4 (12.0-16.0) g/dl Hct 37.6 (37.0-47.0) % MCV 81.4 (80.0-98.0) fL MCH 26.8 L (27.0-33.0) pg MCHC 33.0 (31.0-35.0) g/dl RDW 13.3 (11.0-16.0) % Plt Count 345 (160-400) X10*3/uL MPV 9.1 L (9.4-12.3) fL Immature Gran % (Auto) 0.8 H (0.0-0.4) % Neut % (Auto) 78.8 H (45-73) % Lymph % (Auto) 16.2 L (20-40) % [place] % (Auto) 3.8 (2-11) % Eos % (Auto) 0.1 (0-4) % Baso % (Auto) 0.3 (0-2) % Lymph # (Auto) 2.1 (1.2-4.9) X10*3/uL [place] # (Auto) 0.5 (0.1-1.2) X10*3/uL Eos # (Auto) 0.0 (0.0-0.4) X10*3/uL Baso # (Auto) 0.0 (0.0-0.2) X10*3/uL Abs Immat Gran (auto) 0.10 H (0.00-0.03) X10*3/uL Absolute Neuts (auto) 10.1 H (2.0-8.3) x10*3/uL Absolute Nucleated RBC 0.000 (0.0-0.012) X10*3/uL Nucleated RBC % (auto) 0.0 (0.0-0.2) /100WBC Sodium 134 L (135-145) mmol/L Potassium 5.1 D (3.3-5.1) mmol/L Chloride 96 (96-108) mmol/L Carbon Dioxide 25 (22-29) mmol/L Anion Gap 18 (12-20) BUN 11 (9-16) mg/dL Creatinine 0.89 (0.5-1.4) mg/dL Estim Creat Clear Calc 124.2 Estimated GFR > 60 POC Glucose (60-115) mg/dL Random Glucose 354 H* (60-115) mg/dL Calcium 8.9 (8.4-10.2) mg/dL Magnesium 1.7 (1.6-2.6) mg/dL Total Bilirubin 0.4 (0.0-1.0) mg/dL Direct Bilirubin < 0.2 (0.0-0.5) mg/dL AST 33 H D (5-31) U/L ALT 16 (0-31) U/L Alkaline Phosphatase 87 (39-117) U/L Troponin I High Sens 79.9 H* D (<3.5-17.0) ng/L Total Protein 8.2 H (6.5-8.0) g/dL Albumin 3.5 (3.5-5.0) g/dL Lipase 15 (8-78) U/L Urine Color Urine Appearance Urine pH (5.0-9.0) Ur Specific [place] (1.005-1.025) Urine Protein (Neg-Trace) mg/dL Urine Glucose (UA) (Negative) mg/dL Urine Ketones (Negative) mg/dL Urine Blood (Negative) Urine Nitrite (Negative) Ur Leukocyte Esterase (Negative) Urine RBC (0-2) /HPF Urine WBC (0-5) /HPF Ur Squamous Epith Cells (0-2) /HPF Urine Bacteria (None Seen) Hyaline Casts (0-2) /LPF Urine Yeast Urine Opiates Screen (Not Detect) Urine Fentanyl Screen (Not Detect) Ur Barbiturates Screen (Not Detect) Ur Phencyclidine Scrn (Not Detect) Ur Amphetamines Screen (Not Detect) U Benzodiazepines Scrn (Not Detect) Urine Cocaine Screen (Not Detect) U Marijuana (THC) Screen (Not Detect) Ethyl Alcohol < 10 mg/dL Acetone, Qual Moderate H (Negative) COVID-19 (ES) (Negative) COVID-19 Clin Com 06/30/22 06/30/22 06/30/22 Range/Units 11:17 11:19 11:19 WBC (4.8-10.8) X10*3/uL RBC (4.20-5.50) X10*6/uL Hgb (12.0-16.0) g/dl Hct (37.0-47.0) % MCV (80.0-98.0) fL MCH (27.0-33.0) pg MCHC (31.0-35.0) g/dl RDW (11.0-16.0) % Plt Count (160-400) X10*3/uL MPV (9.4-12.3) fL Immature Gran % (Auto) (0.0-0.4) % Neut % (Auto) (45-73) % Lymph % (Auto) (20-40) % Archer % (Auto) (2-11) % Eos % (Auto) (0-4) % Baso % (Auto) (0-2) % Lymph # (Auto) (1.2-4.9) X10*3/uL [place] # (Auto) (0.1-1.2) X10*3/uL Eos # (Auto) (0.0-0.4) X10*3/uL Baso # (Auto) (0.0-0.2) X10*3/uL Abs Immat Gran (auto) (0.00-0.03) X10*3/uL Absolute Neuts (auto) (2.0-8.3) x10*3/uL Absolute Nucleated RBC (0.0-0.012) X10*3/uL Nucleated RBC % (auto) (0.0-0.2) /100WBC Sodium (135-145) mmol/L Potassium (3.3-5.1) mmol/L Chloride (96-108) mmol/L Carbon Dioxide (22-29) mmol/L Anion Gap (12-20) BUN (9-16) mg/dL Creatinine (0.5-1.4) mg/dL Estim Creat Clear Calc Estimated GFR POC Glucose (60-115) mg/dL Random Glucose (60-115) mg/dL Calcium (8.4-10.2) mg/dL Magnesium (1.6-2.6) mg/dL Total Bilirubin (0.0-1.0) mg/dL Direct Bilirubin (0.0-0.5) mg/dL AST (5-31) U/L ALT (0-31) U/L Alkaline Phosphatase (39-117) U/L Troponin I High Sens (<3.5-17.0) ng/L Total Protein (6.5-8.0) g/dL Albumin (3.5-5.0) g/dL Lipase (8-78) U/L Urine Color Yellow Urine Appearance Cloudy Urine pH 6.0 (5.0-9.0) Ur Specific [place] >= 1.030 H (1.005-1.025) Urine Protein 30 (1+) H (Neg-Trace) mg/dL Urine Glucose (UA) >=1000 H (Negative) mg/dL Urine Ketones 80 (Negative) mg/dL Urine Blood Small (1+) H (Negative) Urine Nitrite Negative (Negative) Ur Leukocyte Esterase Trace H (Negative) Urine RBC 11-20 H (0-2) /HPF Urine WBC 6-10 H (0-5) /HPF Ur Squamous Epith Cells 11-20 (0-2) /HPF Urine Bacteria 4+ (None Seen) Hyaline Casts 0-2 (0-2) /LPF Urine Yeast Present Urine Opiates Screen POSITIVE H (Not Detect) Urine Fentanyl Screen POSITIVE H (Not Detect) Ur Barbiturates Screen Not Detected (Not Detect) Ur Phencyclidine Scrn Not Detected (Not Detect) Ur Amphetamines Screen Not Detected (Not Detect) U Benzodiazepines Scrn Not Detected (Not Detect) Urine Cocaine Screen Not Detected (Not Detect) U Marijuana (THC) Screen POSITIVE H (Not Detect) Ethyl Alcohol mg/dL Acetone, Qual (Negative) COVID-19 (ES) Negative (Negative) COVID-19 Clin Com See Note 06/30/22 06/30/22 06/30/22 Range/Units 12:20 14:28 14:29 WBC (4.8-10.8) X10*3/uL RBC (4.20-5.50) X10*6/uL Hgb (12.0-16.0) g/dl Hct (37.0-47.0) % MCV (80.0-98.0) fL MCH (27.0-33.0) pg MCHC (31.0-35.0) g/dl RDW (11.0-16.0) % Plt Count (160-400) X10*3/uL MPV (9.4-12.3) fL Immature Gran % (Auto) (0.0-0.4) % Neut % (Auto) (45-73) % Lymph % (Auto) (20-40) % Archer % (Auto) (2-11) % Eos % (Auto) (0-4) % Baso % (Auto) (0-2) % Lymph # (Auto) (1.2-4.9) X10*3/uL Archer # (Auto) (0.1-1.2) X10*3/uL Eos # (Auto) (0.0-0.4) X10*3/uL Baso # (Auto) (0.0-0.2) X10*3/uL Abs Immat Gran (auto) (0.00-0.03) X10*3/uL Absolute Neuts (auto) (2.0-8.3) x10*3/uL Absolute Nucleated RBC (0.0-0.012) X10*3/uL Nucleated RBC % (auto) (0.0-0.2) /100WBC Sodium (135-145) mmol/L Potassium (3.3-5.1) mmol/L Chloride (96-108) mmol/L Carbon Dioxide (22-29) mmol/L Anion Gap (12-20) BUN (9-16) mg/dL Creatinine (0.5-1.4) mg/dL Estim Creat Clear Calc Estimated GFR POC Glucose 314 H (60-115) mg/dL Random Glucose (60-115) mg/dL Calcium (8.4-10.2) mg/dL Magnesium (1.6-2.6) mg/dL Total Bilirubin (0.0-1.0) mg/dL Direct Bilirubin (0.0-0.5) mg/dL AST (5-31) U/L ALT (0-31) U/L Alkaline Phosphatase (39-117) U/L Troponin I High Sens 60.4 H* (<3.5-17.0) ng/L Total Protein (6.5-8.0) g/dL Albumin (3.5-5.0) g/dL Lipase (8-78) U/L Urine Color Urine Appearance Urine pH (5.0-9.0) Ur Specific [place] (1.005-1.025) Urine Protein (Neg-Trace) mg/dL Urine Glucose (UA) (Negative) mg/dL Urine Ketones (Negative) mg/dL Urine Blood (Negative) Urine Nitrite (Negative) Ur Leukocyte Esterase (Negative) Urine RBC (0-2) /HPF Urine WBC (0-5) /HPF Ur Squamous Epith Cells (0-2) /HPF Urine Bacteria (None Seen) Hyaline Casts (0-2) /LPF Urine Yeast Urine Opiates Screen (Not Detect) Urine Fentanyl Screen (Not Detect) Ur Barbiturates Screen (Not Detect) Ur Phencyclidine Scrn (Not Detect) Ur Amphetamines Screen (Not Detect) U Benzodiazepines Scrn (Not Detect) Urine Cocaine Screen (Not Detect) U Marijuana (THC) Screen (Not Detect) Ethyl Alcohol mg/dL Acetone, Qual Negative (Negative) COVID-19 (ES) (Negative) COVID-19 Clin Com 06/30/22 06/30/22 Range/Units 15:45 16:07 WBC (4.8-10.8) X10*3/uL RBC (4.20-5.50) X10*6/uL Hgb (12.0-16.0) g/dl Hct (37.0-47.0) % MCV (80.0-98.0) fL MCH (27.0-33.0) pg MCHC (31.0-35.0) g/dl RDW (11.0-16.0) % Plt Count (160-400) X10*3/uL MPV (9.4-12.3) fL Immature Gran % (Auto) (0.0-0.4) % Neut % (Auto) (45-73) % Lymph % (Auto) (20-40) % [place] % (Auto) (2-11) % Eos % (Auto) (0-4) % Baso % (Auto) (0-2) % Lymph # (Auto) (1.2-4.9) X10*3/uL [place] # (Auto) (0.1-1.2) X10*3/uL Eos # (Auto) (0.0-0.4) X10*3/uL Baso # (Auto) (0.0-0.2) X10*3/uL Abs Immat Gran (auto) (0.00-0.03) X10*3/uL Absolute Neuts (auto) (2.0-8.3) x10*3/uL Absolute Nucleated RBC (0.0-0.012) X10*3/uL Nucleated RBC % (auto) (0.0-0.2) /100WBC Sodium (135-145) mmol/L Potassium (3.3-5.1) mmol/L Chloride (96-108) mmol/L Carbon Dioxide (22-29) mmol/L Anion Gap (12-20) BUN (9-16) mg/dL Creatinine (0.5-1.4) mg/dL Estim Creat Clear Calc Estimated GFR POC Glucose 255 H 247 H (60-115) mg/dL Random Glucose (60-115) mg/dL Calcium (8.4-10.2) mg/dL Magnesium (1.6-2.6) mg/dL Total Bilirubin (0.0-1.0) mg/dL Direct Bilirubin (0.0-0.5) mg/dL AST (5-31) U/L ALT (0-31) U/L Alkaline Phosphatase (39-117) U/L Troponin I High Sens (<3.5-17.0) ng/L Total Protein (6.5-8.0) g/dL Albumin (3.5-5.0) g/dL Lipase (8-78) U/L Urine Color Urine Appearance Urine pH (5.0-9.0) Ur Specific [place] (1.005-1.025) Urine Protein (Neg-Trace) mg/dL Urine Glucose (UA) (Negative) mg/dL Urine Ketones (Negative) mg/dL Urine Blood (Negative) Urine Nitrite (Negative) Ur Leukocyte Esterase (Negative) Urine RBC (0-2) /HPF Urine WBC (0-5) /HPF Ur Squamous Epith Cells (0-2) /HPF Urine Bacteria (None Seen) Hyaline Casts (0-2) /LPF Urine Yeast Urine Opiates Screen (Not Detect) Urine Fentanyl Screen (Not Detect) Ur Barbiturates Screen (Not Detect) Ur Phencyclidine Scrn (Not Detect) Ur Amphetamines Screen (Not Detect) U Benzodiazepines Scrn (Not Detect) Urine Cocaine Screen (Not Detect) U Marijuana (THC) Screen (Not Detect) Ethyl Alcohol mg/dL Acetone, Qual (Negative) COVID-19 (ES) (Negative) COVID-19 Clin Com ECG Data Attestation: I personally reviewed and interpreted this ECG as follows: Interpretation: EKG normal sinus rhythm at a rate of 70. QRS 96. QTC 460. No STEMI. Discharge Plan Discharge Clinical Impression: Cyclic vomiting syndrome, Hyperglycemia Patient Disposition: Home, Self-Care Instructions: Acute Nausea and Vomiting (ED), Diabetic Hyperglycemia (ED) Additional Instructions: Your glucose is elevated today, it is very important that you are monitoring this at home using her insulin PLEASE TAKE YOUR HOME PRESCRIBED MEDICATION Your blood pressure was also very elevated, you need to take previously prescribed blood pressure medications. Zofran as antinausea medication, take as needed If you have persistent nausea/vomiting, you are unable to eat or drink, developed headache, or chest pain return to the emergency department. Please have close follow-up with her doctor Prescriptions: New amlodipine 5 mg tablet 5 mg PO DAILY 30 Days Qty: 30 0RF lisinopril 5 mg tablet 5 mg PO DAILY 30 Days Qty: 30 0RF ondansetron 4 mg tablet,disintegrating 4 mg PO Q8H PRN (Reason: nausea and vomiting) Qty: 10 0RF insulin lispro 100 unit/mL insulin pen 1 sliding scale dose subcut .achs Qty: 15 0RF Rx Instructions: * Less than or equal to 110 ---- Give (units): 0 * 111 to 150 Give (units): 0 * 151 to 200 Give (units): 2 * 201 to 250 Give (units): 4 * 251 to 300 Give (units): 6 * 301 to 350 Give (units): 8 * Greater than 350 Give (units): 10 * Call MD if Blood Glucose > : 350 No Action methadone 10 mg/mL Concentrate 100 mg PO DAILY insulin lispro [Humalog KwikPen Insulin] 100 unit/mL insulin pen 8 - 15 unit subcut BID-TID Rx Instructions: pt states she is on a sliding scale from 8 - 15 units SC twice to three times daily amlodipine 5 mg Tablet 5 mg PO DAILY Qty: 30 0RF Protocol: Hold for SBP< HOLD for SBP < : 90 lisinopril 5 mg Tablet 5 mg PO DAILY Qty: 30 0RF Protocol: Hold for SBP< HOLD for SBP < : 90 Referrals: Physician,None [Primary Care Provider] - 2 days [facility] [Provider Group]
--- NOTE | 2022-06-30 10:00 | ECG_ITS ---
Test Reason : HYPERTENSIVE Blood Pressure : / mmHG Vent. Rate : 070 BPM Atrial Rate : 070 BPM P-R Int : 136 ms QRS Dur : 096 ms QT Int : 426 ms P-R-T Axes : 029 -04 012 degrees QTc Int : 460 ms Normal sinus rhythm Nonspecific ST abnormality Lateral leads Abnormal ECG When compared with ECG of 11-JAN-2022 19:30, No significant changes seen Referred By: Thania Oquendo Electronically Signed By:VIANNEY SAMANIEGO MD
[2022-06-30] MEDS: ondansetron HCL 4 MG/2 ML VIAL IVPUSH ×2 (11:19→16:47)
[2022-06-30] MEDS: 0.9 % Sodium Chloride 1,000 ML 999 ML IV ×2 (11:20→13:18)
[2022-06-30] MEDS: Lidocaine HCl 1 % MPF 2 ML VIAL INFILTRATI (11:20)
[2022-06-30] MEDS: Famotidine/PF 20 MG/2 ML VIAL IVPUSH (11:20)
[2022-06-30] MEDS: Magnesium Hydrox/Alum Hydrox 30 ML ORAL.SUSP PO (11:20)
[2022-06-30] MEDS: amLODIPine Besylate 5 MG TABLET PO (11:20)
[2022-06-30 11:21] LABS: MANUAL DIFF FLAG NO
[2022-06-30 11:23] VITALS: BP 164/94; PULSE 60; RESP 16; O2SAT 97
[2022-06-30 11:23] LABS: Basophils Percent Auto 0.3 % (0-2); Eosinophils Percent Auto 0.1 % (0-4); Hematocrit 37.6 % (37.0-47.0); Hemoglobin 12.4 g/dl (12.0-16.0); Imm Gran Pct Auto 0.8 % (0.0-0.4); Lymphocytes Absolute Auto 2.1 X10*3/uL (1.2-4.9); Lymphocytes Percent Auto 16.2 % (20-40); Mean Corpuscular Hemoglobin 26.8 pg (27.0-33.0); Mean Corpuscular Volume 81.4 fL (80.0-98.0); Mean Platelet Volume 9.1 fL (9.4-12.3); Monocytes Absolute Auto 0.5 X10*3/uL (0.1-1.2); Monocytes Percent Auto 3.8 % (2-11); Neutrophils Absolute Auto 10.1 x10*3/uL (2.0-8.3); Neutrophils Percent Auto 78.8 % (45-73); Platelet Count 345 X10*3/uL (160-400); Red Blood Count 4.62 X10*6/uL (4.20-5.50); Red Cell Distribution Width 13.3 % (11.0-16.0); White Blood Count 12.8 X10*3/uL (4.8-10.8)
[2022-06-30 11:26] LABS: Appearance Urine Cloudy; Color Urine Yellow; Glucose Urine UA >=1000 mg/dL (Negative); Leukocyte Esterase Urine Trace (Negative); Nitrite Urine Negative (Negative); Specific Gravity - Urine >= 1.030 (1.005-1.025); UMIC TRIGGER UACC YES; Urine Blood Small (1+) (Negative); Urine Ketones 80 mg/dL (Negative); Urine Protein 30 (1+) mg/dL (Neg-Trace)
[2022-06-30 11:40] LABS: Amphetamine Screen Urine Not Detected (Not Detect); Barbiturates, Urine Not Detected (Not Detect); Benzodiazepines Screen Urine Not Detected (Not Detect); Cannabinoid Screen Urine POSITIVE (Not Detect); Cocaine Screen Urine Not Detected (Not Detect); Fentanyl, urine POSITIVE (Not Detect); Opiate Screen Urine POSITIVE (Not Detect); Phencyclidine Screen Urine Not Detected (Not Detect)
[2022-06-30 11:41] LABS: Bacteria Urine 4+ (None Seen); Hyaline Casts Urine 0-2 /LPF (0-2); UACC Culture Trigger YES
[2022-06-30 11:43] LABS: COVID-19 Test Negative (Negative); IDNOW Serial# 55D5AD1C
[2022-06-30 11:44] LABS: Alanine Aminotransferase 16 U/L (0-31); Albumin Level 3.5 g/dL (3.5-5.0); Alkaline Phosphatase 87 U/L (39-117); Anion Gap 18 (12-20); Aspartate Amino Transferase 33 U/L (5-31); Bilirubin Direct < 0.2 mg/dL (0.0-0.5); Bilirubin Total 0.4 mg/dL (0.0-1.0); Blood Urea Nitrogen 11 mg/dL (9-16); Calcium 8.9 mg/dL (8.4-10.2); Carbon Dioxide 25 mmol/L (22-29); Chloride 96 mmol/L (96-108); Creatinine Clr Calc Pharmacy 124.2; Estimated Glomerular Filt Rate > 60; Ethanol < 10 mg/dL; Glucose Random 354 mg/dL (60-115); Lipase 15 U/L (8-78); Magnesium 1.7 mg/dL (1.6-2.6); Potassium 5.1 mmol/L (3.3-5.1); Sodium 134 mmol/L (135-145); Total Protein 8.2 g/dL (6.5-8.0)
[2022-06-30 11:47] LABS: Troponin-I High Sensitivity 79.9 ng/L (<3.5-17.0)
[2022-06-30 12:04] LABS: Acetone, serum QL Moderate (Negative)
[2022-06-30 12:27] LABS: Glucose, Whole Blood 314 mg/dL (60-115)
[2022-06-30 12:45] VITALS: BP 147/51; PULSE 58; RESP 16; O2SAT 98
[2022-06-30] MEDS: Insulin Regular, Human 100 UNIT/ML 3 ML VIAL IVPUSH (13:15)
[2022-06-30 15:05] LABS: Acetone, serum QL Negative (Negative)
[2022-06-30 15:18] LABS: Troponin-I High Sensitivity 60.4 ng/L (<3.5-17.0)
[2022-06-30 15:49] LABS: Glucose, Whole Blood 255 mg/dL (60-115)
[2022-06-30 16:10] LABS: Glucose, Whole Blood 247 mg/dL (60-115)
[2022-06-30 16:45] VITALS: BP 162/97; PULSE 69; RESP 16; O2SAT 99
[2022-06-30] MEDS: Insulin Lispro 100 UNIT/ML 3 ML VIAL SUBCUT (16:47)
== END 2022-06-30 17:10 | disposition home or self-care (01) ==
PROVIDERS: Physician Assistant; Emergency Provider Emergency Medicine
DX: R11.15 Cyclical vomiting syndrome unrelated to migraine (principal); E11.65 Type 2 diabetes mellitus with hyperglycemia; R10.10 Upper abdominal pain, unspecified; F12.10 Cannabis abuse, uncomplicated; F11.20 Opioid dependence, uncomplicated; R11.2 Nausea with vomiting, unspecified; Z20.822 Contact with and (suspected) exposure to COVID-19; Z79.4 Long term (current) use of insulin; Z79.899 Other long term (current) drug therapy; Z91.14 Patient's other noncompliance with medication regimen
CPT/HCPCS: 36415; 36556; 80048; 80076; 80307; 81001; 82009; 82077; 82947; 83690; 83735; 84484; 85025; 87086; 87635; 93005; 96361; 96374; 96375; 99285; J2405

== ENCOUNTER 2022-08-03 09:55 | Emergency (ER) | payer OTHER, SELFPAY ==
[2022-08-03 10:19] VITALS: PULSE 85; RESP 18; TEMP 36.7; O2SAT 98; BMI 42.5
--- NOTE | 2022-08-03 13:43 | ED.MEDCLEAR ---
HPI - Medical Clearance General Chief complaint: Medical Clearance Stated complaint: medication Time Seen by Provider: 08/03/22 13:34 Source: patient Mode of arrival: ambulatory Limitations: no limitations History of Present Illness HPI Narrative: 37 yold female with pmh of HTN and DM presents to the ED for medication refill of amlodopine, lisonopirl, and zofra. patient has DM meds but just need the needles. Patient states no physical complaints Related Information Home Medications Medication Instructions Recorded Confirmed insulin lispro 100 unit/mL 8 - 15 unit subcut BID-TID 01/10/22 01/10/22 subcutaneous pen (Humalog KwikPen (U-100) Insulin) methadone 10 mg/mL oral concentrate 100 mg PO DAILY 01/10/22 01/11/22 Previous Rx's Medication Instructions Recorded amlodipine 5 mg tablet 5 mg PO DAILY #30 tabs 01/12/22 lisinopril 5 mg tablet 5 mg PO DAILY #30 tabs 01/12/22 amlodipine 5 mg tablet 5 mg PO DAILY 1 month #30 tabs 06/30/22 insulin lispro 100 unit/mL 1 sliding scale dose subcut .achs 06/30/22 subcutaneous pen #15 mL lisinopril 5 mg tablet 5 mg PO DAILY 1 month #30 tabs 06/30/22 ondansetron 4 mg disintegrating 4 mg PO Q8H PRN nausea and 06/30/22 tablet vomiting #10 tabs amlodipine 5 mg tablet 5 mg PO DAILY 30 days #30 tabs 08/03/22 lisinopril 5 mg tablet 5 mg PO DAILY 30 days #30 tabs 08/03/22 ondansetron 4 mg disintegrating 4 mg PO Q8H PRN nausea and 08/03/22 tablet vomiting #10 tabs Allergies Allergy/AdvReac Type Severity Reaction Status Date / Time No Known Allergies Allergy Verified 01/10/22 11:27 Review of Systems Review of Systems: no physical complatins. Yes all other systems are reviewed and are negative PMFSH Past Medical History Medical History Anxiety and depression Diabetes Methadone maintenance therapy patient Polysubstance (excluding opioids) dependence, daily use Social History Social History Alcohol intake: never Patient Tobacco Use Status: Never used Tobacco Substance Use Type: Heroin Advance Directives: Yes Advance Directives on File: Yes Advance Directives Date on File: 01/11/22 service: No Current occupational status: employed Physical Exam Vital Signs: Vital Signs: Last Vital Signs Temp 98.1 F 08/03/22 10:19 Pulse 85 08/03/22 10:19 Resp 18 08/03/22 10:19 Pulse Ox 98 08/03/22 10:19 O2 Del Method 08/03/22 10:19 BMI result Body Mass Index 42.5 Const: General: cooperative, healthy appearing, comfortable, no acute distress, well developed, alert, awake and Physically active Orientation/consciousness: oriented to time and patient oriented x3 HEENT: Head: Yes normal to inspection, Yes No palpable skull fracture present, Yes normocephalic, Yes atraumatic and No abrasion Eyes: General: appearance normal, both eyes and all related structures Neck: Neck: Yes normal visual inspection, Yes full ROM, Yes no lymphadenopathy, Yes no meningeal signs, Yes trachea midline, Yes supple, No anterior neck swelling and No tender Chest: Chest palpation & inspection: normal inspection of the chest and normal palpation of entire chest wall Resp: Effort & Inspection: normal respiratory effort and able to speak in complete sentences Cardio: Jugular venous distension: no JVD and JVD GI: Inspection: Yes normal to inspection and Yes abdominal wall ecchymosis : General: No CVA tenderness and Yes no CVA tenderness Back/Spine/Pelvis: Back: no CVA tenderness, No CVA tenderness and No back tenderness Skin: General skin exam: no rashes or lesions noted and elasticity normal Neuro: General: oriented to time, patient oriented x3, gait normal, tone normal, no meningeal signs and CN's II-XI intact bilaterally Cranial nerves: Yes CN's II-XII intact bilaterally Extrem: General: Yes normal to inspection and Yes full ROM Psych: Appearance: grossly normal, well kempt and not disheveled Course Course Course Narrative: RME: no physical complaints. needs refill of amlodopine, linorpil and zofran. has her DM meds ( insulin pens) but just need the neelds Reevaluation(s) Reevaluation #1: meds refilled. patient given [facility] info to call for follow up to mamange her HTN and diabetes. Time: 17:02 Discharge Plan Discharge Clinical Impression: Medication refill Patient Disposition: Home, Self-Care Instructions: Medicine Refill (ED) Additional Instructions: Return to the ED for any physical complaints or any other concerning symptoms. Please call [facility] yesika for apppointment Prescriptions: New amlodipine 5 mg tablet 5 mg PO DAILY 30 Days Qty: 30 0RF lisinopril 5 mg tablet 5 mg PO DAILY 30 Days Qty: 30 0RF ondansetron 4 mg tablet,disintegrating 4 mg PO Q8H PRN (Reason: nausea and vomiting) Qty: 10 0RF No Action methadone 10 mg/mL Concentrate 100 mg PO DAILY insulin lispro [Humalog KwikPen Insulin] 100 unit/mL insulin pen 8 - 15 unit subcut BID-TID Rx Instructions: pt states she is on a sliding scale from 8 - 15 units SC twice to three times daily amlodipine 5 mg Tablet 5 mg PO DAILY Qty: 30 0RF Protocol: Hold for SBP< HOLD for SBP < : 90 lisinopril 5 mg Tablet 5 mg PO DAILY Qty: 30 0RF Protocol: Hold for SBP< HOLD for SBP < : 90 amlodipine 5 mg tablet 5 mg PO DAILY 30 Days Qty: 30 0RF lisinopril 5 mg tablet 5 mg PO DAILY 30 Days Qty: 30 0RF ondansetron 4 mg tablet,disintegrating 4 mg PO Q8H PRN (Reason: nausea and vomiting) Qty: 10 0RF insulin lispro 100 unit/mL insulin pen 1 sliding scale dose subcut .achs Qty: 15 0RF Rx Instructions: * Less than or equal to 110 ---- Give (units): 0 * 111 to 150 Give (units): 0 * 151 to 200 Give (units): 2 * 201 to 250 Give (units): 4 * 251 to 300 Give (units): 6 * 301 to 350 Give (units): 8 * Greater than 350 Give (units): 10 * Call MD if Blood Glucose > : 350 [place] [facility] [facility] [place] [facility] [place] Group] (Needs PCP or HTN/diabetes management) Interventions: ED Discharge Assessment Last Done: 08/03/22 13:56 Discharge Date/Time: 08/03/22 13:56 Print Language: Sami
== END 2022-08-03 13:56 | disposition home or self-care (01) ==
PROVIDERS: Emergency Provider Emergency Medicine
DX: Z76.0 Encounter for issue of repeat prescription (principal); I10 Essential (primary) hypertension; E11.9 Type 2 diabetes mellitus without complications; F11.220 Opioid dependence with intoxication, uncomplicated
CPT/HCPCS: 99282; 99283

== ENCOUNTER 2022-12-31 14:16 | Emergency (ER) | payer OTHER, SELFPAY ==
[2022-12-31 14:27] VITALS: BP 175/107; BP 208/132; PULSE 74; PULSE 77; RESP 18; TEMP 36.8; O2SAT 97; O2SAT 98; BMI 42.1
[2022-12-31 15:12] LABS: MANUAL DIFF FLAG NO
[2022-12-31 15:14] LABS: Basophils Percent Auto 0.3 % (0-2); Eosinophils Percent Auto 0.1 % (0-4); Hematocrit 42.7 % (37.0-47.0); Hemoglobin 13.9 g/dl (12.0-16.0); Imm Gran Abs Auto 0.04 X10*3/uL (0.00-0.03); Imm Gran Pct Auto 0.3 % (0.0-0.4); Lymphocytes Absolute Auto 1.3 X10*3/uL (1.2-4.9); Lymphocytes Percent Auto 10.4 % (20-40); Mean Corpuscular HGB Conc 32.6 g/dl (31.0-35.0); Mean Corpuscular Hemoglobin 25.6 pg (27.0-33.0); Mean Corpuscular Volume 78.5 fL (80.0-98.0); Mean Platelet Volume 9.1 fL (9.4-12.3); Monocytes Absolute Auto 0.3 X10*3/uL (0.1-1.2); Monocytes Percent Auto 2.7 % (2-11); Neutrophils Absolute Auto 10.5 x10*3/uL (2.0-8.3); Neutrophils Percent Auto 86.2 % (45-73); Platelet Count 281 X10*3/uL (160-400); Red Blood Count 5.44 X10*6/uL (4.20-5.50); Red Cell Distribution Width 13.2 % (11.0-16.0); White Blood Count 12.2 X10*3/uL (4.8-10.8)
[2022-12-31 15:38] LABS: Alanine Aminotransferase 11 U/L (0-31); Albumin Level 3.7 g/dL (3.5-5.0); Alkaline Phosphatase 103 U/L (39-117); Anion Gap 16 (12-20); Aspartate Amino Transferase 17 U/L (5-31); Bilirubin Total 0.6 mg/dL (0.0-1.0); Blood Urea Nitrogen 6 mg/dL (9-16); Calcium 9.3 mg/dL (8.4-10.2); Carbon Dioxide 24 mmol/L (22-29); Chloride 98 mmol/L (96-108); Creatinine Clr Calc Pharmacy 129.5; Estimated Glomerular Filt Rate > 60; Glucose Random 376 mg/dL (60-115); Potassium 4.3 mmol/L (3.3-5.1); Sodium 134 mmol/L (135-145); Total Protein 8.7 g/dL (6.5-8.0)
[2022-12-31 15:48] LABS: HCG Quantitative < 2 mIU/mL
[2022-12-31] MEDS: Ondansetron ODT 4 MG TAB.RAPDIS TRANSLINGU (16:29)
--- NOTE | 2022-12-31 16:43 | ECG_ITS ---
Test Reason : MEDICATION Blood Pressure : / mmHG Vent. Rate : 058 BPM Atrial Rate : 058 BPM P-R Int : 134 ms QRS Dur : 098 ms QT Int : 456 ms P-R-T Axes : 029 002 017 degrees QTc Int : 447 ms Sinus bradycardia Otherwise normal ECG When compared with ECG of 30-JUN-2022 10:09, No significant change was found Referred By: Ann Krishnamurthy Electronically Signed By:DENNIS RAY MD
--- NOTE | 2022-12-31 16:52 | PC.NURSE ---
pt is difficult to obtain access several attempts made by nursing and providers have established 20g in right ac
--- NOTE | 2022-12-31 16:55 | ED.NAVMDI ---
HPI - Nausea/Vomiting/Diarrhea General Chief complaint: Nausea/Vomiting/Diarrhea Stated complaint: nausea vomiting Time Seen by Provider: 12/31/22 16:04 Source: patient Mode of arrival: EMS History of Present Illness HPI Narrative: 37-year-old female with known sickle vomiting as well as being a diabetic with hypertension presents with reports of nausea vomiting that started this morning, she denies any diarrhea or abdominal discomfort and denies any urinary pain/burning/frequency and also denies any shortness of breath or chest pain/palpitations, fevers or chills. Related Data Home Medications Medication Instructions Recorded Confirmed methadone 10 mg/mL oral concentrate 100 mg PO DAILY 01/10/22 01/11/22 Previous Rx's Medication Instructions Recorded amlodipine 5 mg tablet (Norvasc) 5 mg PO DAILY #30 tabs 12/31/22 insulin lispro 100 unit/mL 1 sliding scale dose subcut 12/31/22 subcutaneous pen USEASDIRECTD #15 mL Allergies Allergy/AdvReac Type Severity Reaction Status Date / Time No Known Allergies Allergy Verified 01/10/22 11:27 Review of Systems Review of Systems: Pertinent positives and negatives as stated in HPI PMFSH Past Medical History Source: nursing notes reviewed Medical History Anxiety and depression Diabetes Methadone maintenance therapy patient Polysubstance (excluding opioids) dependence, daily use Social History Social History Alcohol intake: never Patient Tobacco Use Status: Never used Tobacco Smoked in Last 30 Days: Yes Substance Use Type: Heroin Advance Directives: Yes Advance Directives on File: Yes Advance Directives Date on File: 01/11/22 Patient : No service: No Current occupational status: employed Physical Exam Vital Signs: Vital Signs: Last Vital Signs Temp 98.0 F 12/31/22 21:03 Pulse 80 12/31/22 21:03 Resp 18 12/31/22 21:03 BP 184/96 H 12/31/22 21:03 Pulse Ox 97 12/31/22 21:03 O2 Del Method Room Air 12/31/22 21:03 BMI result Body Mass Index 42.1 VITAL SIGNS: Reviewed. GENERAL: Well developed, well nourished, in no acute distress. HEAD: Normocephalic/atraumatic EYES: PERRLA, EOMI EARS: Ext canals without abnormality NOSE: Nares patent bilateral OROPHARYNX: no oral lesions noted, posterior pharynx clear NECK: Supple, no adenopathy LUNGS: Normal breath sounds. No adventitious sounds or accessory muscle use. SpO2<97> CARDIOVASCULAR: Regular rate and rhythm without noted murmurs, no JVD or lower extremity edema. ABDOMEN: Soft, non-tender, non-distended with bowel sounds. MUSCULOSKELETAL: No tenderness, deformities, or effusions noted on gross inspection. EXTREMITIES: No cyanosis, clubbing or edema. SKIN: Inspection of the skin reveals no rashes NEUROLOGIC: Alert and oriented x 4. Strength and sensation to light touch were grossly intact x 4. Medications Administered Discontinued Medications Generic Name Dose Route Start Last Admin Trade Name Freq PRN Reason Stop Dose Admin Amlodipine Besylate 10 mg 12/31/22 18:54 12/31/22 19:54 Amlodipine Besylate 10 Mg Tablet PO 12/31/22 18:55 10 mg ONCE ONE Administration Protocol Hydralazine HCl 5 mg 12/31/22 17:16 12/31/22 17:46 Hydralazine Hcl 20 Mg/Ml Vial IVPUSH 12/31/22 17:17 5 mg ONCE ONE Administration Protocol Sodium Chloride 1,000 mls @ 999 mls/hr 12/31/22 16:45 12/31/22 20:15 Ns IV 12/31/22 17:45 Infused .Q1H1M NASH Infusion Insulin Human Lispro 10 unit 12/31/22 17:16 12/31/22 17:46 Insulin Lispro 100 Unit/Ml 3 Ml Vial SUBCUT 12/31/22 17:17 10 unit ONCE ONE Administration Insulin Human Lispro 10 unit 12/31/22 19:28 12/31/22 19:58 Insulin Lispro 100 Unit/Ml 3 Ml Vial SUBCUT 12/31/22 19:29 10 unit ONCE ONE Administration Ondansetron HCl 4 mg 12/31/22 16:12 12/31/22 16:29 Ondansetron Odt 4 Mg Tab.Rapdis TRANSLINGU 12/31/22 16:13 4 mg ONCE ONE Administration Prochlorperazine Edisylate 10 mg 12/31/22 21:27 12/31/22 21:50 Prochlorperazine Edisylate 10 Mg/2 Ml Vial IVPUSH 12/31/22 21:28 10 mg ONCE ONE Administration Medical Decision Making Medical Decision Making [facility] Narrative: 37-year-old female with history and clinical presentation most likely associated with cannabis use but also patient appears to be out of her chronic medications. Reviewed all investigations my interpretation is that patient has a stress leukocytosis with no clinical suspicion for infectious etiology. Acetone is negative therefore there is no evidence DKA or HHS although patient is noted to be hyperglycemic which is consistent with her having run out of medication. She will receive antiemetics, IV fluids and as long as she can tolerate oral intake she will be discharged with at a minimum a 2 week supply of her home medications. Patient is now doing much better and no other etiology identified for presentation. Blood pressure has improved after provided with Norvasc and patient will be discharged with insulin pens. Differential Diagnosis Please see the discussion above Lab Data Please see the discussion above 12/31/22 15:09 12/31/22 15:09 Labs: Lab Results 12/31/22 12/31/22 12/31/22 Range/Units 15:09 15:09 15:09 WBC 12.2 H (4.8-10.8) X10*3/uL RBC 5.44 (4.20-5.50) X10*6/uL Hgb 13.9 (12.0-16.0) g/dl Hct 42.7 (37.0-47.0) % MCV 78.5 L (80.0-98.0) fL MCH 25.6 L (27.0-33.0) pg MCHC 32.6 (31.0-35.0) g/dl RDW 13.2 (11.0-16.0) % Plt Count 281 (160-400) X10*3/uL MPV 9.1 L (9.4-12.3) fL Immature Gran % (Auto) 0.3 (0.0-0.4) % Neut % (Auto) 86.2 H (45-73) % Lymph % (Auto) 10.4 L (20-40) % [place] % (Auto) 2.7 (2-11) % Eos % (Auto) 0.1 (0-4) % Baso % (Auto) 0.3 (0-2) % Lymph # (Auto) 1.3 (1.2-4.9) X10*3/uL [place] # (Auto) 0.3 (0.1-1.2) X10*3/uL Eos # (Auto) 0.0 (0.0-0.4) X10*3/uL Baso # (Auto) 0.0 (0.0-0.2) X10*3/uL Abs Immat Gran (auto) 0.04 H (0.00-0.03) X10*3/uL Absolute Neuts (auto) 10.5 H (2.0-8.3) x10*3/uL Absolute Nucleated RBC 0.000 (0.0-0.012) X10*3/uL Nucleated RBC % (auto) 0.0 (0.0-0.2) /100WBC Smear Tech's Comments Sodium 134 L (135-145) mmol/L Potassium 4.3 (3.3-5.1) mmol/L Chloride 98 (96-108) mmol/L Carbon Dioxide 24 (22-29) mmol/L Anion Gap 16 (12-20) BUN 6 L (9-16) mg/dL Creatinine 0.84 (0.5-1.4) mg/dL Estim Creat Clear Calc 129.5 Estimated GFR > 60 POC Glucose (60-115) mg/dL Random Glucose 376 H* (60-115) mg/dL Calcium 9.3 (8.4-10.2) mg/dL Total Bilirubin 0.6 (0.0-1.0) mg/dL AST 17 (5-31) U/L ALT 11 (0-31) U/L Alkaline Phosphatase 103 (39-117) U/L Total Protein 8.7 H (6.5-8.0) g/dL Albumin 3.7 (3.5-5.0) g/dL Beta HCG, Quant < 2 mIU/mL Urine Color Urine Appearance Urine pH (5.0-9.0) Ur Specific [place] (1.005-1.025) Urine Protein (Neg-Trace) mg/dL Urine Glucose (UA) (Negative) mg/dL Urine Ketones (Negative) mg/dL Urine Blood (Negative) Urine Nitrite (Negative) Ur Leukocyte Esterase (Negative) Urine RBC (0-2) /HPF Urine WBC (0-5) /HPF Ur Squamous Epith Cells (0-2) /HPF Urine Bacteria (None Seen) Hyaline Casts (0-2) /LPF 12/31/22 12/31/22 12/31/22 Range/Units 18:22 18:22 18:48 WBC 12.9 H (4.8-10.8) X10*3/uL RBC 4.88 (4.20-5.50) X10*6/uL Hgb 12.7 (12.0-16.0) g/dl Hct 38.3 (37.0-47.0) % MCV 78.5 L (80.0-98.0) fL MCH 26.0 L (27.0-33.0) pg MCHC 33.2 (31.0-35.0) g/dl RDW 13.0 (11.0-16.0) % Plt Count TNP (160-400) X10*3/uL MPV 9.9 (9.4-12.3) fL Immature Gran % (Auto) 0.6 H (0.0-0.4) % Neut % (Auto) 90.2 H (45-73) % Lymph % (Auto) 7.5 L (20-40) % [place] % (Auto) 1.4 L (2-11) % Eos % (Auto) 0.1 (0-4) % Baso % (Auto) 0.2 (0-2) % Lymph # (Auto) 1.0 L (1.2-4.9) X10*3/uL [place] # (Auto) 0.2 (0.1-1.2) X10*3/uL Eos # (Auto) 0.0 (0.0-0.4) X10*3/uL Baso # (Auto) 0.0 (0.0-0.2) X10*3/uL Abs Immat Gran (auto) 0.08 H (0.00-0.03) X10*3/uL Absolute Neuts (auto) 11.6 H (2.0-8.3) x10*3/uL Absolute Nucleated RBC 0.000 (0.0-0.012) X10*3/uL Nucleated RBC % (auto) 0.0 (0.0-0.2) /100WBC Smear Tech's Comments VERIFIED Sodium 133 L (135-145) mmol/L Potassium 4.8 (3.3-5.1) mmol/L Chloride 98 (96-108) mmol/L Carbon Dioxide 23 (22-29) mmol/L Anion Gap 17 (12-20) BUN 6 L (9-16) mg/dL Creatinine 0.81 (0.5-1.4) mg/dL Estim Creat Clear Calc 134.2 Estimated GFR > 60 POC Glucose 359 H* (60-115) mg/dL Random Glucose 390 H* (60-115) mg/dL Calcium 9.3 (8.4-10.2) mg/dL Total Bilirubin (0.0-1.0) mg/dL AST (5-31) U/L ALT (0-31) U/L Alkaline Phosphatase (39-117) U/L Total Protein (6.5-8.0) g/dL Albumin (3.5-5.0) g/dL Beta HCG, Quant mIU/mL Urine Color Urine Appearance Urine pH (5.0-9.0) Ur Specific [place] (1.005-1.025) Urine Protein (Neg-Trace) mg/dL Urine Glucose (UA) (Negative) mg/dL Urine Ketones (Negative) mg/dL Urine Blood (Negative) Urine Nitrite (Negative) Ur Leukocyte Esterase (Negative) Urine RBC (0-2) /HPF Urine WBC (0-5) /HPF Ur Squamous Epith Cells (0-2) /HPF Urine Bacteria (None Seen) Hyaline Casts (0-2) /LPF 12/31/22 12/31/22 Range/Units 21:06 22:00 WBC (4.8-10.8) X10*3/uL RBC (4.20-5.50) X10*6/uL Hgb (12.0-16.0) g/dl Hct (37.0-47.0) % MCV (80.0-98.0) fL MCH (27.0-33.0) pg MCHC (31.0-35.0) g/dl RDW (11.0-16.0) % Plt Count (160-400) X10*3/uL MPV (9.4-12.3) fL Immature Gran % (Auto) (0.0-0.4) % Neut % (Auto) (45-73) % Lymph % (Auto) (20-40) % [place] % (Auto) (2-11) % Eos % (Auto) (0-4) % Baso % (Auto) (0-2) % Lymph # (Auto) (1.2-4.9) X10*3/uL [place] # (Auto) (0.1-1.2) X10*3/uL Eos # (Auto) (0.0-0.4) X10*3/uL Baso # (Auto) (0.0-0.2) X10*3/uL Abs Immat Gran (auto) (0.00-0.03) X10*3/uL Absolute Neuts (auto) (2.0-8.3) x10*3/uL Absolute Nucleated RBC (0.0-0.012) X10*3/uL Nucleated RBC % (auto) (0.0-0.2) /100WBC Smear Tech's Comments Sodium (135-145) mmol/L Potassium (3.3-5.1) mmol/L Chloride (96-108) mmol/L Carbon Dioxide (22-29) mmol/L Anion Gap (12-20) BUN (9-16) mg/dL Creatinine (0.5-1.4) mg/dL Estim Creat Clear Calc Estimated GFR POC Glucose 338 H (60-115) mg/dL Random Glucose (60-115) mg/dL Calcium (8.4-10.2) mg/dL Total Bilirubin (0.0-1.0) mg/dL AST (5-31) U/L ALT (0-31) U/L Alkaline Phosphatase (39-117) U/L Total Protein (6.5-8.0) g/dL Albumin (3.5-5.0) g/dL Beta HCG, Quant mIU/mL Urine Color Yellow Urine Appearance Clear Urine pH 7.5 (5.0-9.0) Ur Specific [place] >= 1.030 H (1.005-1.025) Urine Protein 100 (2+) H (Neg-Trace) mg/dL Urine Glucose (UA) >=1000 H (Negative) mg/dL Urine Ketones 40 (Negative) mg/dL Urine Blood Trace H (Negative) Urine Nitrite Negative (Negative) Ur Leukocyte Esterase Negative (Negative) Urine RBC 6-10 H (0-2) /HPF Urine WBC 0-5 (0-5) /HPF Ur Squamous Epith Cells 3-5 (0-2) /HPF Urine Bacteria 1+ (None Seen) Hyaline Casts 0-2 (0-2) /LPF Independent Interpretation I performed an independent interpretation of an: EKG Interpretation: Sinus bradycardia, HR-58, no STEMI, CA/QRS/QTC are within normal limits. External Record Review External record reviewed: Outpatient record and Prior outpatient labs Discharge Plan Discharge Clinical Impression: Hypertension, Cyclical vomiting, Hyperglycemia due to diabetes mellitus, Dehydration Patient Disposition: Home, Self-Care Instructions: Hypertension (ED), Diabetic Hyperglycemia (ED), Cyclic Vomiting Syndrome (ED) Additional Instructions: 1. Resume all home medications as prescribed. 2. Follow-up with your primary care provider by calling the office in the morning. Return to the ER for any worsening symptoms. Prescriptions: New amlodipine [Norvasc] 5 mg tablet 5 mg PO DAILY Qty: 30 0RF insulin lispro 100 unit/mL insulin pen 1 sliding scale dose subcut USEASDIRECTD Qty: 15 0RF Rx Instructions: * Less than or equal to 110 ---- Give (units): 0 * 111 to 150 Give (units): 0 * 151 to 200 Give (units): 2 * 201 to 250 Give (units): 4 * 251 to 300 Give (units): 6 * 301 to 350 Give (units): 8 * Greater than 350 Give (units): 10 * Call MD if Blood Glucose > : 350 Discontinued insulin lispro [Humalog KwikPen Insulin] 100 unit/mL insulin pen 8 - 15 unit subcut BID-TID Rx Instructions: pt states she is on a sliding scale from 8 - 15 units SC twice to three times daily amlodipine 5 mg Tablet 5 mg PO DAILY Qty: 30 0RF Protocol: Hold for SBP< HOLD for SBP < : 90 lisinopril 5 mg Tablet 5 mg PO DAILY Qty: 30 0RF Protocol: Hold for SBP< HOLD for SBP < : 90 amlodipine 5 mg tablet 5 mg PO DAILY 30 Days Qty: 30 0RF lisinopril 5 mg tablet 5 mg PO DAILY 30 Days Qty: 30 0RF ondansetron 4 mg tablet,disintegrating 4 mg PO Q8H PRN (Reason: nausea and vomiting) Qty: 10 0RF insulin lispro 100 unit/mL insulin pen 1 sliding scale dose subcut .achs Qty: 15 0RF Rx Instructions: * Less than or equal to 110 ---- Give (units): 0 * 111 to 150 Give (units): 0 * 151 to 200 Give (units): 2 * 201 to 250 Give (units): 4 * 251 to 300 Give (units): 6 * 301 to 350 Give (units): 8 * Greater than 350 Give (units): 10 * Call MD if Blood Glucose > : 350 amlodipine 5 mg tablet 5 mg PO DAILY 30 Days Qty: 30 0RF lisinopril 5 mg tablet 5 mg PO DAILY 30 Days Qty: 30 0RF ondansetron 4 mg tablet,disintegrating 4 mg PO Q8H PRN (Reason: nausea and vomiting) Qty: 10 0RF No Action methadone 10 mg/mL Concentrate 100 mg PO DAILY
[2022-12-31 17:23] VITALS: BP 194/86; PULSE 83; RESP 14; TEMP 36.8; O2SAT 97
[2022-12-31] MEDS: hydrALAZINE HCl 20 MG/ML VIAL 5 MG IVPUSH (17:46)
[2022-12-31] MEDS: Insulin Lispro 100 UNIT/ML 3 ML VIAL 10 UNIT SUBCUT ×2 (17:46→19:58)
[2022-12-31] MEDS: 0.9 % Sodium Chloride 1,000 ML 999 ML IV (17:46)
[2022-12-31 18:33] LABS: Basophils Percent Auto 0.2 % (0-2); Eosinophils Percent Auto 0.1 % (0-4); Hematocrit 38.3 % (37.0-47.0); Hemoglobin 12.7 g/dl (12.0-16.0); Imm Gran Abs Auto 0.08 X10*3/uL (0.00-0.03); Imm Gran Pct Auto 0.6 % (0.0-0.4); Lymphocytes Percent Auto 7.5 % (20-40); MANUAL DIFF FLAG SCAN; Mean Corpuscular HGB Conc 33.2 g/dl (31.0-35.0); Mean Corpuscular Volume 78.5 fL (80.0-98.0); Mean Platelet Volume 9.9 fL (9.4-12.3); Monocytes Absolute Auto 0.2 X10*3/uL (0.1-1.2); Monocytes Percent Auto 1.4 % (2-11); Neutrophils Absolute Auto 11.6 x10*3/uL (2.0-8.3); Neutrophils Percent Auto 90.2 % (45-73); PLT CLUMP 1; Red Blood Count 4.88 X10*6/uL (4.20-5.50); SCAN SMEAR FLAG 1
[2022-12-31 18:51] LABS: Anion Gap 17 (12-20); Blood Urea Nitrogen 6 mg/dL (9-16); Calcium 9.3 mg/dL (8.4-10.2); Carbon Dioxide 23 mmol/L (22-29); Chloride 98 mmol/L (96-108); Creatinine Clr Calc Pharmacy 134.2; Estimated Glomerular Filt Rate > 60; Glucose Random 390 mg/dL (60-115); Potassium 4.8 mmol/L (3.3-5.1); Sodium 133 mmol/L (135-145)
[2022-12-31 18:52] LABS: Glucose, Whole Blood 359 mg/dL (60-115)
[2022-12-31 19:00] LABS: SLIDE REVIEW VERIFIED; White Blood Count 12.9 X10*3/uL (4.8-10.8)
[2022-12-31] MEDS: amLODIPine Besylate 10 MG TABLET PO (19:54)
[2022-12-31 21:03] VITALS: BP 184/96; PULSE 80; RESP 18; TEMP 36.7; O2SAT 97
[2022-12-31 21:11] LABS: Glucose, Whole Blood 338 mg/dL (60-115)
[2022-12-31] MEDS: Prochlorperazine Edisylate 10 MG/2 ML VIAL IVPUSH (21:50)
[2022-12-31 22:06] LABS: Appearance Urine Clear; Color Urine Yellow; Glucose Urine UA >=1000 mg/dL (Negative); Leukocyte Esterase Urine Negative (Negative); Nitrite Urine Negative (Negative); PH 7.5 (5.0-9.0); Specific Gravity - Urine >= 1.030 (1.005-1.025); UMIC TRIGGER UACC YES; Urine Blood Trace (Negative); Urine Ketones 40 mg/dL (Negative); Urine Protein 100 (2+) mg/dL (Neg-Trace)
[2022-12-31 22:11] LABS: Bacteria Urine 1+ (None Seen); Hyaline Casts Urine 0-2 /LPF (0-2); WBC Urine 0-5 /HPF (0-5)
== END 2023-01-01 00:25 | disposition home or self-care (01) ==
PROVIDERS: Physician Assistant Medical; Emergency Provider Student in an Organized Health Care Education/Training Program
DX: E11.65 Type 2 diabetes mellitus with hyperglycemia (principal); R00.1 Bradycardia, unspecified; E86.0 Dehydration; I10 Essential (primary) hypertension; R11.15 Cyclical vomiting syndrome unrelated to migraine; Z79.899 Other long term (current) drug therapy
CPT/HCPCS: 36415; 80048; 80053; 81001; 82947; 84702; 85025; 93005; 96374; 96375; 99285

== ENCOUNTER 2023-01-01 00:47 | Emergency (ER) | payer OTHER, SELFPAY ==
[2023-01-01 01:07] VITALS: BP 191/102; PULSE 85; RESP 16; TEMP 36.8; O2SAT 96; BMI 42.1
--- NOTE | 2023-01-01 01:34 | PC.NURSE ---
PER MD LOPEZ, NO FURTHER TX REQUIRED. DISCUSSED WITH PT IN [place], SHE STATES PART OF THE REASON SHE IS CHECKING BACK IN IS BECAUSE SHE DOES NOT HAVE A RIDE HOME. PT NO LONGER VOMITING IN [place]. REQUESTING TO BE REMOVED FROM LIST OF PTS TO BE SEEN.
== END 2023-01-01 01:36 | disposition left against medical advice (07) ==
PROVIDERS: Emergency Provider Emergency Medicine
DX: R11.10 Vomiting, unspecified (principal)
CPT/HCPCS: 99281

== ENCOUNTER 2023-01-03 13:26 | Observation (INO) | payer OTHER, SELFPAY ==
--- NOTE | ~2023-01-03 | CT_ITS ---
EXAMINATION: CT ABDOMEN AND PELVIS WITHOUT CONTRAST CLINICAL INFORMATION: Intractable nausea and vomiting COMPARISON: 01/10/2022 TECHNIQUE: Multidetector volumetric imaging was performed from the superior aspect of the liver through the pubic symphysis. Sagittal and coronal reformatted images were obtained on the technologist's workstation. This CT examination was performed using dose optimization techniques as appropriate, variously including the following: *Automated exposure control *Adjustment of mA and/or kV according to patient size (this includes techniques or standardized protocols for targeted exams where dose is matched to indication/reason for exam; i.e. extremities or head) *Use of iterative reconstruction technique DLP: Pleura of the mGy-cm FINDINGS: LUNG BASES: The visualized lung bases are unremarkable. LIVER, GALLBLADDER, AND BILIARY TREE: Visualized portions of the liver are unremarkable. Gallbladder is distended with mild layering dense material which may reflect stones or biliary sludge. No pericholecystic fluid. Lack of IV contrast limits evaluation for hyperemia. PANCREAS: Unremarkable. SPLEEN: Unremarkable. ADRENAL GLANDS: Unremarkable. KIDNEYS AND URETERS: The kidneys are normal in size, shape, and attenuation. No hydronephrosis, hydroureter, or calculi seen. No perinephric stranding. BLADDER: Unremarkable. GASTROINTESTINAL TRACT: The small and large bowel are unremarkable. Sigmoid colonic diverticulosis, no CT findings of diverticulitis. The appendix is unremarkable. ABDOMINAL WALL: No significant hernia is appreciated. LYMPH NODES: Normal. VASCULAR: Unremarkable. PELVIC VISCERA: Unremarkable. OSSEOUS STRUCTURES: Unremarkable. CT/CT abdomen pelvis wo IV con IMPRESSION: Gallbladder is distended with mild layering dense material which may reflect stones or biliary sludge. No pericholecystic fluid. Lack of IV contrast limits evaluation for hyperemia.
--- NOTE | ~2023-01-03 | NM_ITS ---
EXAMINATION: Nuclear medicine hepatobiliary with pharmaceutical. CLINICAL INDICATIONS: Nausea/vomiting and distended abdomen. COMPARISON: Ultrasound abdomen 01/03/2023. TECHNIQUE: Following intravenous administration of 4.6 mCi of 90 9M technetium mebrofenin, imaging over the right upper quadrant was obtained up to 60 minutes. Subsequently 2.5 mcg of CCK was administered slowly intravenously and imaging was obtained for next 60 minutes. FINDINGS: There is normal hepatic uptake without focal defect. CBD is visualized by 32 minutes and small bowel by 38 minutes. Post-CCK the ejection fraction at 30 minutes is 0%. NM/NM hepatobiliary w pharm IMPRESSION: Abnormal gallbladder ejection fraction of 0% at 30 minutes post-CCK. Normal hepatic uptake with patent cystic duct and CBD.
--- NOTE | ~2023-01-03 | XR_ITS ---
EXAMINATION: XR CHEST CLINICAL INFORMATION: Nausea and vomiting COMPARISON: None available. TECHNIQUE: Frontal view of the chest was obtained. FINDINGS: No significant abnormality is noted involving the heart, lungs, mediastinum, bony thorax or soft tissues. XR/XR chest 1V IMPRESSION: Unremarkable chest examination.
--- NOTE | ~2023-01-03 | US_ITS ---
EXAMINATION: US ABDOMEN LIMITED CLINICAL INFORMATION: Nausea and vomiting, abnormal CT. COMPARISON: None available. TECHNIQUE: Real-time imaging of the right upper quadrant abdominal viscera. FINDINGS: PANCREAS: The visualized proximal portion of the pancreas is unremarkable. The distal portion is obscured secondary to overlying bowel gas. LIVER: The liver is normal in size. The liver contour is normal. There is increased liver parenchymal echogenicity, consistent with hepatic steatosis. No focal hepatic lesion. There is no intrahepatic biliary duct dilatation seen. GALLBLADDER: The gallbladder is distended and contains sludge. No discrete shadowing gallstones are seen. No appreciable gallbladder wall thickening. COMMON BILE DUCT: Normal in caliber measuring 0.6 cm in diameter. RIGHT KIDNEY: No hydronephrosis. No renal calculi or focal parenchymal lesions. The kidney measures 10.8 cm in maximum dimension. FREE FLUID: None. US/US abdomen limited IMPRESSION: 1. Distended gallbladder containing sludge. No additional specific findings of cholecystitis. 2. Hepatic steatosis.
[2023-01-03 13:31] VITALS: BP 173/120; PULSE 107; O2SAT 98
[2023-01-03 13:47] VITALS: BP 158/110; PULSE 107; RESP 19; TEMP 36.6; O2SAT 97; BMI 42.1
--- NOTE | 2023-01-03 13:47 | ED.GENADULT ---
HPI - General Adult General Chief complaint: Abdominal Pain <ANIRUDH Brown - Last Filed: 01/03/23 13:48> Stated complaint: high bs,vomiting per ems <ANIRUDH Brown - Last Filed: 01/03/23 13:48> Time Seen by Provider: 01/03/23 16:55 <ANIRUDH Brown - Last Filed: 01/03/23 13:48> Source: patient <Low Al MD - Last Filed: 01/03/23 21:34> Mode of arrival: EMS <Low Al MD - Last Filed: 01/03/23 21:34> Limitations: no limitations <Low Al MD - Last Filed: 01/03/23 21:34> History of Present Illness HPI narrative: 37-year-old female with a history of diabetes mellitus and cyclic vomiting syndrome who presents emergency department for evaluation nausea, vomiting, unable to eat or drink, weakness with symptoms starting on 12/31/2022. Patient states that she has constant nausea. She states she has been vomiting every hour. She complains of feeling very weak and fatigued. She feels lightheaded and dizzy. She states that she is having epigastric pain that feels like heartburn. Patient states that she has run out of her medications for 2 months and has not been taking her insulin or blood pressure medications. She states she has not been taking her insulin her blood pressure medications. She was seen in the emergency department on 12/31/2022, she was treated with antiemetics and IV fluid with improvement of her symptoms, she is able tolerate oral fluids and was discharged home. She states however since going home, her symptoms recurred and she has not been able to hold down food or fluid. Patient does have a history of heroin use and she states that she has been injecting heroin daily. She is on methadone. She also smokes marijuana 2 to 3 times a day. <Low Al MD - Last Filed: 01/03/23 21:34> Related Data Home medications: Home Medications Medication Instructions Recorded Confirmed methadone 10 mg/mL oral concentrate 100 mg PO DAILY 01/10/22 01/11/22 Previous Rx's Medication Instructions Recorded amlodipine 5 mg tablet (Norvasc) 5 mg PO DAILY #30 tabs 12/31/22 insulin lispro 100 unit/mL 1 sliding scale dose subcut 12/31/22 subcutaneous pen USEASDIRECTD #15 mL <ANIRUDH Brown - Last Filed: 01/03/23 13:48> Allergies/adverse reactions: Allergies Allergy/AdvReac Type Severity Reaction Status Date / Time No Known Allergies Allergy Verified 01/03/23 13:47 <ANIRUDH Brown - Last Filed: 01/03/23 13:48> Review of Systems Review of Systems: Yes all other systems are reviewed and are negative <Low Al MD - Last Filed: 01/03/23 21:34> [facility] Past Medical History [facility] Narrative: Past medical history: Diabetes mellitus, hypertension, cyclic vomiting syndrome, opiate use disorder-continues to use injection heroin, methadone maintenance, marijuana use disorder. Social history: She denies tobacco and alcohol use, she does smoke marijuana injects heroin daily <Low Al MD - Last Filed: 01/03/23 21:34> Medical History: Medical History Anxiety and depression Diabetes Methadone maintenance therapy patient Polysubstance (excluding opioids) dependence, daily use <ANIRUDH Brown - Last Filed: 01/03/23 13:48> Social History Social History: Social History Alcohol intake: current Alcohol intake frequency: does not drink Patient Tobacco Use Status: Never used Tobacco Use of substances other than those prescribed or required for medical reasons: Yes Substance Use Type: Heroin, IV Drugs and Marijuana Substance Use Frequency: Chronic Longstanding Last Used Substance: Just Prior to Admission Any prior treatment program specific to substance use: No (reports on waiting list) Advance Directives: Yes Advance Directives on File: Yes Advance Directives Date on File: 01/11/22 service: No Current occupational status: employed <ANIRUDH Brown - Last Filed: 01/03/23 13:48> Physical Exam ED Vital Signs: Vital Signs - 24 hr 01/03/23 13:47 01/03/23 16:51 01/03/23 19:39 Temperature 98 F 98.0 F 98.3 F Pulse Rate 107 H 79 105 H Respiratory Rate 19 16 15 Blood Pressure 158/110 H 167/102 H 152/113 H Pulse Oximetry 97 97 97 Oxygen Delivery Method Room Air Room Air Room Air BMI result Body Mass Index 42.1 <ANIRUDH Brown - Last Filed: 01/03/23 13:48> Vital Signs - 24 hr 01/03/23 13:47 01/03/23 16:51 01/03/23 19:39 Temperature 98 F 98.0 F 98.3 F Pulse Rate 107 H 79 105 H Respiratory Rate 19 16 15 Blood Pressure 158/110 H 167/102 H 152/113 H Pulse Oximetry 97 97 97 Oxygen Delivery Method Room Air Room Air Room Air BMI result Body Mass Index 42.1 Vital signs reviewed, she is hypertensive but has not been taking her medications for 2 months <Low Al MD - Last Filed: 01/03/23 21:34> Const Other: Awake, alert, female patient, appears to be in distress secondary to her nausea and vomiting, does answer questions appropriately. Elevated BMI of 42.1. <Low Al MD - Last Filed: 01/03/23 21:34> HENMT Head: Yes normal to inspection, Yes normocephalic and Yes atraumatic <Low Al MD - Last Filed: 01/03/23 21:34> Ears: external ears normal <Low Al MD - Last Filed: 01/03/23 21:34> General nose exam: Normal external nose present <Low Al MD - Last Filed: 01/03/23 21:34> Face and sinus: Yes normal facial exam <Low Al MD - Last Filed: 01/03/23 21:34> Mouth: Normal oral and palatal mucosa present <Low Al MD - Last Filed: 01/03/23 21:34> Throat: Yes posterior oropharynx normal <Low Al MD - Last Filed: 01/03/23 21:34> Eyes General: appearance normal, both eyes and all related structures <MD Jeremy Muir Last Filed: 01/03/23 21:34> Pupils: Equal, round and reactive pupils present <MD Jeremy Muir Last Filed: 01/03/23 21:34> Neck Neck: Yes normal visual inspection, Yes no lymphadenopathy, Yes trachea midline and Yes supple <MD Jeremy Muir Last Filed: 01/03/23 21:34> Chest Chest palpation & inspection: normal inspection of the chest and normal palpation of entire chest wall <MD Jeremy Muir Last Filed: 01/03/23 21:34> Resp Effort & Inspection: normal respiratory effort and able to speak in complete sentences <MD Jeremy Muir Last Filed: 01/03/23 21:34> Auscultation: clear to auscultation bilaterally <MD Jeremy Muir Last Filed: 01/03/23 21:34> Cardio Rate: regular rate <MD Jeremy Muir Last Filed: 01/03/23 21:34> Rhythm: regular rhythm <MD Jeremy Muir Last Filed: 01/03/23 21:34> Heart sounds: S1 normal heart sound present, S2 normal heart sound present and no murmurs <MD Jeremy Muir Last Filed: 01/03/23 21:34> GI Inspection: Yes normal to inspection <MD Jeremy Muir Last Filed: 01/03/23 21:34> Palpation (GI): Soft to palpation, Tenderness to palpation present (GI) in the epigastrum (Moderate) and no guarding <MD Jeremy Muir Last Filed: 01/03/23 21:34> Auscultation: normal bowel sounds <MD Jeremy Muir Last Filed: 01/03/23 21:34> General: Yes no CVA tenderness <MD Jeremy Muir Last Filed: 01/03/23 21:34> Back/Spine/Pelvis Back: no CVA tenderness <MD Jeremy Muir Last Filed: 01/03/23 21:34> Skin Other: Patient has track garcia on both arms, the patient has a wound to her left medial aspect of her biceps with a cicatrix over the wound, there is no increased erythema or warmth. <Low Al MD - Last Filed: 01/03/23 21:34> Neuro Cranial nerves: Yes CN's II-XII intact bilaterally and Yes Equal, round and reactive pupils present <Low Al MD - Last Filed: 01/03/23 21:34> Cognition (Neuro): normal cognition <Low Al MD - Last Filed: 01/03/23 21:34> Motor exam (neuro): 5/5 motor strength present throughout <Low Al MD - Last Filed: 01/03/23 21:34> Psych Appearance: grossly normal <Low Al MD - Last Filed: 01/03/23 21:34> Speech and movement: Normal speech and movement present <Low Al MD - Last Filed: 01/03/23 21:34> Affect: normal affect <Low Al MD - Last Filed: 01/03/23 21:34> Attitude: cooperative <Low Al MD - Last Filed: 01/03/23 21:34> Thought process: Normal thought process present <Low Al MD - Last Filed: 01/03/23 21:34> Thought content: Normal thought content present <Low Al MD - Last Filed: 01/03/23 21:34> Course Course Course Narrative: This is an RME: Additional HPI, ROS, PE not included below will be deferred to primary provider. 37-year-old female history of opiate abuse, cyclic vomiting presents with diffuse abdominal pain, nausea, vomiting, inability to keep anything down by mouth, reports high blood sugar tells me she took a test for diabetic ketoacidosis at home and it was positive. Patient states she has not been feeling well since 12/31/2022. Patient was seen here in the emergency department discharge on that day around midnight, diagnosed with cyclic vomiting. Patient does report marijuana use. Physical exam benign. Vital signs stable. Plan labs, <ANIRUDH Brown - Last Filed: 01/03/23 13:48> Medications Administered Discontinued Medications Generic Name Dose Route Start Last Admin Trade Name Freq PRN Reason Stop Dose Admin Diphenhydramine HCl 50 mg 01/03/23 19:51 01/03/23 20:25 Diphenhydramine Hcl 50 Mg/Ml Vial IVPUSH 01/03/23 19:52 50 mg ONCE STA Administration Sodium Chloride 1,000 mls @ 999 mls/hr 01/03/23 14:00 01/03/23 18:41 Ns IV 01/03/23 15:00 Infused .Q1H1M NASH Infusion Lactated Ringer's 1,000 mls @ 999 mls/hr 01/03/23 20:00 01/03/23 20:25 Lr IV 01/03/23 21:00 999 mls/hr .Q1H1M NASH Administration Metoclopramide HCl 10 mg 01/03/23 19:51 01/03/23 20:25 Metoclopramide Hcl 10 Mg/2 Ml Vial IVPUSH 01/03/23 19:52 10 mg ONCE STA Administration Ondansetron HCl 4 mg 01/03/23 13:48 01/03/23 17:41 Ondansetron Hcl 4 Mg/2 Ml Vial IVPUSH 01/03/23 13:49 4 mg ONCE ONE Administration <ANIRUDH Brown - Last Filed: 01/03/23 13:48> Medications Administered Discontinued Medications Generic Name Dose Route Start Last Admin Trade Name Sang PRN Reason Stop Dose Admin Diphenhydramine HCl 50 mg 01/03/23 19:51 01/03/23 20:25 Diphenhydramine Hcl 50 Mg/Ml Vial IVPUSH 01/03/23 19:52 50 mg ONCE STA Administration Sodium Chloride 1,000 mls @ 999 mls/hr 01/03/23 14:00 01/03/23 18:41 Ns IV 01/03/23 15:00 Infused .Q1H1M NASH Infusion Lactated Ringer's 1,000 mls @ 999 mls/hr 01/03/23 20:00 01/03/23 20:25 Lr IV 01/03/23 21:00 999 mls/hr .Q1H1M NASH Administration Metoclopramide HCl 10 mg 01/03/23 19:51 01/03/23 20:25 Metoclopramide Hcl 10 Mg/2 Ml Vial IVPUSH 01/03/23 19:52 10 mg ONCE STA Administration Ondansetron HCl 4 mg 01/03/23 13:48 01/03/23 17:41 Ondansetron Hcl 4 Mg/2 Ml Vial IVPUSH 01/03/23 13:49 4 mg ONCE ONE Administration <Low Al MD - Last Filed: 01/03/23 21:34> Procedures EJ/Peripheral Line Arm R: Time Out Performed: No <Low Al MD - Last Filed: 01/03/23 21:34> Skin Cleansed in Sterile Fashion: Yes <Low Al MD - Last Filed: 01/03/23 21:34> Size (gauge): 18 <Low Al MD - Last Filed: 01/03/23 21:34> IV Secured and Dressing Applied: Yes <Low Al MD - Last Filed: 01/03/23 21:34> Patient Tolerated Procedure: well <oLw Al MD - Last Filed: 01/03/23 21:34> Additional Comments: The IV was placed using ultrasound guidance <Low Al MD - Last Filed: 01/03/23 21:34> Medical Decision Making Medical Decision Making MDM Narrative: 37-year-old female with a history of diabetes, hypertension, cyclic vomiting syndrome, opiate use disorder did injecting heroin daily, heroin use disorder, methadone maintenance, noncompliance with her medications who presents to emergency department for evaluation of nausea, vomiting abdominal pain and weakness. Symptoms began on 12/31/2022. She was initially seen here in the emergency department on that day, treated and discharged but since being discharged states that her symptoms have been constant and she has not had anything to eat or drink in several days. Vital signs did reveal an elevated pulse and elevated blood pressure. Exam did reveal epigastric tenderness. Provider at triage ordered laboratory evaluation to include CBC, CMP, lipase, venous blood gas, magnesium, urinalysis, acetone. Normal saline x1 L and Zofran 4 mg IV was also ordered 2116: My interpretation patient's laboratory evaluation is as follows: WBC elevated 22,000, H&H normal 14.6 and 42 point 8. Venous pH was 7.42 which is normal. Glucose was low 130, chloride was low 89, glucose elevated 347. Urinalysis revealed positive blood, negative nitrates, negative leukocytes. Microscopic revealed greater than 20 RBCs, 6-10 WBCs 11-20 squamous cells 4+ bacteria-this is not a clean-catch specimen. Acetone was negative. Patient's labs do not support the diagnosis of diabetic ketoacidosis. Patient did require a 2nd dose of antiemetics-Reglan and 10 mg IV and Benadryl 50 mg IV. She was given a 2nd L of fluid lactated Ringer's 1 L IV. Patient is not feeling better pain. At this point she is not eating or drinking and she has an elevated glucose therefore I will discuss admission with the covering hospitalist. 2131: I did discuss the patient with the covering hospitalist, Dr. Gill. After this discussion, blood cultures x2, lactic acid was ordered. Patient be treated with ceftriaxone 1 g IV and vancomycin 2 g IV. <Low Al MD - Last Filed: 01/03/23 21:34> Differential Diagnosis Differential diagnosis includes but is not limited to gastroparesis, cyclic vomiting syndrome, diabetic ketoacidosis, gastritis, viral syndrome, electrolyte abnormality, anemia <Low Al MD - Last Filed: 01/03/23 21:34> Admission/Observation Consideration of admission/observation: Escalation of care including admission/observation considered <Low Al MD - Last Filed: 01/03/23 21:34> Consult Healthcare Provider Management of the patient was discussed with: Hospitalist <Low Al MD - Last Filed: 01/03/23 21:34> Lab Data [facility] Lab Attestation statement: I reviewed the patient's lab results. <Low Al MD - Last Filed: 01/03/23 21:34> See [facility] <Low Al MD - Last Filed: 01/03/23 21:34> Result Diagrams: 01/03/23 17:10 01/03/23 17:29 <ANIRUDH Brown - Last Filed: 01/03/23 13:48> Labs: Lab Results 01/03/23 01/03/23 01/03/23 Range/Units 16:46 17:10 17:29 WBC 22.0 H (4.8-10.8) X10*3/uL RBC 5.53 H (4.20-5.50) X10*6/uL Hgb 14.6 (12.0-16.0) g/dl Hct 42.8 (37.0-47.0) % MCV 77.4 L (80.0-98.0) fL MCH 26.4 L (27.0-33.0) pg MCHC 34.1 (31.0-35.0) g/dl RDW 13.6 (11.0-16.0) % Plt Count TNP MPV 9.6 (9.4-12.3) fL Immature Gran % (Auto) 1.1 H (0.0-0.4) % Neut % (Auto) 78.2 H (45-73) % Lymph % (Auto) 12.8 L (20-40) % [place] % (Auto) 7.6 (2-11) % Eos % (Auto) 0.0 (0-4) % Baso % (Auto) 0.3 (0-2) % Lymph # (Auto) 2.8 (1.2-4.9) X10*3/uL [place] # (Auto) 1.7 H (0.1-1.2) X10*3/uL Eos # (Auto) 0.0 (0.0-0.4) X10*3/uL Baso # (Auto) 0.1 (0.0-0.2) X10*3/uL Abs Immat Gran (auto) 0.24 H (0.00-0.03) X10*3/uL Absolute Neuts (auto) 17.2 H (2.0-8.3) x10*3/uL Absolute Nucleated RBC 0.000 (0.0-0.012) X10*3/uL Nucleated RBC % (auto) 0.0 (0.0-0.2) /100WBC VBG pH (7.32-7.43) VBG pCO2 mmHg VBG pO2 mmHg VBG HCO3 (22-26) mmol/L VBG O2 Saturation % VBG Base Excess mmol/L Sodium 130 L (135-145) mmol/L Potassium 3.8 D (3.3-5.1) mmol/L Chloride 89 L (96-108) mmol/L Carbon Dioxide 28 (22-29) mmol/L Anion Gap 17 (12-20) BUN 16 (9-16) mg/dL Creatinine 0.98 (0.5-1.4) mg/dL Estim Creat Clear Calc 110.9 Estimated GFR > 60 POC Glucose 376 H* (60-115) mg/dL Random Glucose 347 H (60-115) mg/dL Calcium 9.5 (8.4-10.2) mg/dL Magnesium 1.9 (1.6-2.6) mg/dL Total Bilirubin 1.0 (0.0-1.0) mg/dL AST 14 (5-31) U/L ALT 13 (0-31) U/L Alkaline Phosphatase 99 (39-117) U/L Total Protein 8.8 H (6.5-8.0) g/dL Albumin 3.9 (3.5-5.0) g/dL Lipase 23 (8-78) U/L Urine Color Urine Appearance Urine pH (5.0-9.0) Ur Specific [place] (1.005-1.025) Urine Protein (Neg-Trace) mg/dL Urine Glucose (UA) (Negative) mg/dL Urine Ketones (Negative) mg/dL Urine Blood (Negative) Urine Nitrite (Negative) Ur Leukocyte Esterase (Negative) Urine RBC (0-2) /HPF Urine WBC (0-5) /HPF Ur Squamous Epith Cells (0-2) /HPF Urine Bacteria (None Seen) Hyaline Casts (0-2) /LPF Acetone, Qual Negative (Negative) 01/03/23 01/03/23 01/03/23 Range/Units 17:38 19:44 20:58 WBC (4.8-10.8) X10*3/uL RBC (4.20-5.50) X10*6/uL Hgb (12.0-16.0) g/dl Hct (37.0-47.0) % MCV (80.0-98.0) fL MCH (27.0-33.0) pg MCHC (31.0-35.0) g/dl RDW (11.0-16.0) % Plt Count MPV (9.4-12.3) fL Immature Gran % (Auto) (0.0-0.4) % Neut % (Auto) (45-73) % Lymph % (Auto) (20-40) % [place] % (Auto) (2-11) % Eos % (Auto) (0-4) % Baso % (Auto) (0-2) % Lymph # (Auto) (1.2-4.9) X10*3/uL [place] # (Auto) (0.1-1.2) X10*3/uL Eos # (Auto) (0.0-0.4) X10*3/uL Baso # (Auto) (0.0-0.2) X10*3/uL Abs Immat Gran (auto) (0.00-0.03) X10*3/uL Absolute Neuts (auto) (2.0-8.3) x10*3/uL Absolute Nucleated RBC (0.0-0.012) X10*3/uL Nucleated RBC % (auto) (0.0-0.2) /100WBC VBG pH 7.42 (7.32-7.43) VBG pCO2 47 mmHg VBG pO2 45 mmHg VBG HCO3 31 H (22-26) mmol/L VBG O2 Saturation 64.0 % VBG Base Excess 6.1 mmol/L Sodium (135-145) mmol/L Potassium (3.3-5.1) mmol/L Chloride (96-108) mmol/L Carbon Dioxide (22-29) mmol/L Anion Gap (12-20) BUN (9-16) mg/dL Creatinine (0.5-1.4) mg/dL Estim Creat Clear Calc Estimated GFR POC Glucose 322 H (60-115) mg/dL Random Glucose (60-115) mg/dL Calcium (8.4-10.2) mg/dL Magnesium (1.6-2.6) mg/dL Total Bilirubin (0.0-1.0) mg/dL AST (5-31) U/L ALT (0-31) U/L Alkaline Phosphatase (39-117) U/L Total Protein (6.5-8.0) g/dL Albumin (3.5-5.0) g/dL Lipase (8-78) U/L Urine Color Yellow Urine Appearance Cloudy Urine pH 6.0 (5.0-9.0) Ur Specific [place] >= 1.030 H (1.005-1.025) Urine Protein 300 (3+) H (Neg-Trace) mg/dL Urine Glucose (UA) >=1000 H (Negative) mg/dL Urine Ketones 80 (Negative) mg/dL Urine Blood Moderate (2+) H (Negative) Urine Nitrite Negative (Negative) Ur Leukocyte Esterase Negative (Negative) Urine RBC >20 H (0-2) /HPF Urine WBC 6-10 H (0-5) /HPF Ur Squamous Epith Cells 11-20 (0-2) /HPF Urine Bacteria 4+ (None Seen) Hyaline Casts 11-20 (0-2) /LPF Acetone, Qual (Negative) <ANIRUDH Brown - Last Filed: 01/03/23 13:48> Lab Results 01/03/23 01/03/23 01/03/23 Range/Units 16:46 17:10 17:29 WBC 22.0 H (4.8-10.8) X10*3/uL RBC 5.53 H (4.20-5.50) X10*6/uL Hgb 14.6 (12.0-16.0) g/dl Hct 42.8 (37.0-47.0) % MCV 77.4 L (80.0-98.0) fL MCH 26.4 L (27.0-33.0) pg MCHC 34.1 (31.0-35.0) g/dl RDW 13.6 (11.0-16.0) % Plt Count TNP MPV 9.6 (9.4-12.3) fL Immature Gran % (Auto) 1.1 H (0.0-0.4) % Neut % (Auto) 78.2 H (45-73) % Lymph % (Auto) 12.8 L (20-40) % [place] % (Auto) 7.6 (2-11) % Eos % (Auto) 0.0 (0-4) % Baso % (Auto) 0.3 (0-2) % Lymph # (Auto) 2.8 (1.2-4.9) X10*3/uL [place] # (Auto) 1.7 H (0.1-1.2) X10*3/uL Eos # (Auto) 0.0 (0.0-0.4) X10*3/uL Baso # (Auto) 0.1 (0.0-0.2) X10*3/uL Abs Immat Gran (auto) 0.24 H (0.00-0.03) X10*3/uL Absolute Neuts (auto) 17.2 H (2.0-8.3) x10*3/uL Absolute Nucleated RBC 0.000 (0.0-0.012) X10*3/uL Nucleated RBC % (auto) 0.0 (0.0-0.2) /100WBC VBG pH (7.32-7.43) VBG pCO2 mmHg VBG pO2 mmHg VBG HCO3 (22-26) mmol/L VBG O2 Saturation % VBG Base Excess mmol/L Sodium 130 L (135-145) mmol/L Potassium 3.8 D (3.3-5.1) mmol/L Chloride 89 L (96-108) mmol/L Carbon Dioxide 28 (22-29) mmol/L Anion Gap 17 (12-20) BUN 16 (9-16) mg/dL Creatinine 0.98 (0.5-1.4) mg/dL Estim Creat Clear Calc 110.9 Estimated GFR > 60 POC Glucose 376 H* (60-115) mg/dL Random Glucose 347 H (60-115) mg/dL Calcium 9.5 (8.4-10.2) mg/dL Magnesium 1.9 (1.6-2.6) mg/dL Total Bilirubin 1.0 (0.0-1.0) mg/dL AST 14 (5-31) U/L ALT 13 (0-31) U/L Alkaline Phosphatase 99 (39-117) U/L Total Protein 8.8 H (6.5-8.0) g/dL Albumin 3.9 (3.5-5.0) g/dL Lipase 23 (8-78) U/L Urine Color Urine Appearance Urine pH (5.0-9.0) Ur Specific [place] (1.005-1.025) Urine Protein (Neg-Trace) mg/dL Urine Glucose (UA) (Negative) mg/dL Urine Ketones (Negative) mg/dL Urine Blood (Negative) Urine Nitrite (Negative) Ur Leukocyte Esterase (Negative) Urine RBC (0-2) /HPF Urine WBC (0-5) /HPF Ur Squamous Epith Cells (0-2) /HPF Urine Bacteria (None Seen) Hyaline Casts (0-2) /LPF Acetone, Qual Negative (Negative) 01/03/23 01/03/23 01/03/23 Range/Units 17:38 19:44 20:58 WBC (4.8-10.8) X10*3/uL RBC (4.20-5.50) X10*6/uL Hgb (12.0-16.0) g/dl Hct (37.0-47.0) % MCV (80.0-98.0) fL MCH (27.0-33.0) pg MCHC (31.0-35.0) g/dl RDW (11.0-16.0) % Plt Count MPV (9.4-12.3) fL Immature Gran % (Auto) (0.0-0.4) % Neut % (Auto) (45-73) % Lymph % (Auto) (20-40) % [place] % (Auto) (2-11) % Eos % (Auto) (0-4) % Baso % (Auto) (0-2) % Lymph # (Auto) (1.2-4.9) X10*3/uL [place] # (Auto) (0.1-1.2) X10*3/uL Eos # (Auto) (0.0-0.4) X10*3/uL Baso # (Auto) (0.0-0.2) X10*3/uL Abs Immat Gran (auto) (0.00-0.03) X10*3/uL Absolute Neuts (auto) (2.0-8.3) x10*3/uL Absolute Nucleated RBC (0.0-0.012) X10*3/uL Nucleated RBC % (auto) (0.0-0.2) /100WBC VBG pH 7.42 (7.32-7.43) VBG pCO2 47 mmHg VBG pO2 45 mmHg VBG HCO3 31 H (22-26) mmol/L VBG O2 Saturation 64.0 % VBG Base Excess 6.1 mmol/L Sodium (135-145) mmol/L Potassium (3.3-5.1) mmol/L Chloride (96-108) mmol/L Carbon Dioxide (22-29) mmol/L Anion Gap (12-20) BUN (9-16) mg/dL Creatinine (0.5-1.4) mg/dL Estim Creat Clear Calc Estimated GFR POC Glucose 322 H (60-115) mg/dL Random Glucose (60-115) mg/dL Calcium (8.4-10.2) mg/dL Magnesium (1.6-2.6) mg/dL Total Bilirubin (0.0-1.0) mg/dL AST (5-31) U/L ALT (0-31) U/L Alkaline Phosphatase (39-117) U/L Total Protein (6.5-8.0) g/dL Albumin (3.5-5.0) g/dL Lipase (8-78) U/L Urine Color Yellow Urine Appearance Cloudy Urine pH 6.0 (5.0-9.0) Ur Specific [place] >= 1.030 H (1.005-1.025) Urine Protein 300 (3+) H (Neg-Trace) mg/dL Urine Glucose (UA) >=1000 H (Negative) mg/dL Urine Ketones 80 (Negative) mg/dL Urine Blood Moderate (2+) H (Negative) Urine Nitrite Negative (Negative) Ur Leukocyte Esterase Negative (Negative) Urine RBC >20 H (0-2) /HPF Urine WBC 6-10 H (0-5) /HPF Ur Squamous Epith Cells 11-20 (0-2) /HPF Urine Bacteria 4+ (None Seen) Hyaline Casts 11-20 (0-2) /LPF Acetone, Qual (Negative) <Low Al MD - Last Filed: 01/03/23 21:34> External Record Review External record reviewed: Inpatient record <Low Al MD - Last Filed: 01/03/23 21:34> Discharge Plan Discharge Clinical Impression: Cyclic vomiting syndrome, Acute hyperglycemia, Gastritis <ANIRUDH Brown - Last Filed: 01/03/23 13:48> Patient Disposition: Admitted As Inpatient <ANIRUDH Brown - Last Filed: 01/03/23 13:48>
[2023-01-03 16:51] VITALS: BP 167/102; PULSE 79; RESP 16; TEMP 36.7; O2SAT 97
--- NOTE | 2023-01-03 17:14 | PC.NURSE ---
Provider at bedside to perform ultrasound IV, d/t x2 failed attempts by nurse for peripheral IV.
[2023-01-03 17:16] LABS: MANUAL DIFF FLAG NO
[2023-01-03 17:26] LABS: Basophils Absolute Auto 0.1 X10*3/uL (0.0-0.2); Basophils Percent Auto 0.3 % (0-2); Hematocrit 42.8 % (37.0-47.0); Hemoglobin 14.6 g/dl (12.0-16.0); Imm Gran Abs Auto 0.24 X10*3/uL (0.00-0.03); Imm Gran Pct Auto 1.1 % (0.0-0.4); Lymphocytes Absolute Auto 2.8 X10*3/uL (1.2-4.9); Lymphocytes Percent Auto 12.8 % (20-40); Mean Corpuscular HGB Conc 34.1 g/dl (31.0-35.0); Mean Corpuscular Hemoglobin 26.4 pg (27.0-33.0); Mean Corpuscular Volume 77.4 fL (80.0-98.0); Mean Platelet Volume 9.6 fL (9.4-12.3); Monocytes Absolute Auto 1.7 X10*3/uL (0.1-1.2); Monocytes Percent Auto 7.6 % (2-11); Neutrophils Absolute Auto 17.2 x10*3/uL (2.0-8.3); Neutrophils Percent Auto 78.2 % (45-73); PLT CLUMP 1; Red Blood Count 5.53 X10*6/uL (4.20-5.50); Red Cell Distribution Width 13.6 % (11.0-16.0); SCAN SMEAR FLAG 1
[2023-01-03] MEDS: 0.9 % Sodium Chloride 1,000 ML 999 ML IV (17:36)
[2023-01-03] MEDS: ondansetron HCL 4 MG/2 ML VIAL IVPUSH (17:41)
[2023-01-03 17:45] LABS: VBG Base Excess 6.1 mmol/L; VBG HCO3 31 mmol/L (22-26); VBG pCO2 47 mmHg; VBG pH 7.42 (7.32-7.43); VBG pO2 45 mmHg
[2023-01-03 17:45] LABS: Venous Blood Gas Refer to POC result
[2023-01-03 17:58] LABS: Alanine Aminotransferase 13 U/L (0-31); Albumin Level 3.9 g/dL (3.5-5.0); Alkaline Phosphatase 99 U/L (39-117); Anion Gap 17 (12-20); Aspartate Amino Transferase 14 U/L (5-31); Blood Urea Nitrogen 16 mg/dL (9-16); Calcium 9.5 mg/dL (8.4-10.2); Carbon Dioxide 28 mmol/L (22-29); Chloride 89 mmol/L (96-108); Creatinine Clr Calc Pharmacy 110.9; Estimated Glomerular Filt Rate > 60; Glucose Random 347 mg/dL (60-115); Lipase 23 U/L (8-78); Magnesium 1.9 mg/dL (1.6-2.6); Potassium 3.8 mmol/L (3.3-5.1); Sodium 130 mmol/L (135-145); Total Protein 8.8 g/dL (6.5-8.0)
[2023-01-03 18:11] LABS: Acetone, serum QL Negative (Negative)
[2023-01-03 18:31] LABS: Glucose, Whole Blood 376 mg/dL (60-115)
[2023-01-03 19:39] VITALS: BP 152/113; PULSE 105; RESP 15; TEMP 36.8; O2SAT 97
--- NOTE | 2023-01-03 19:41 | PC.NURSE ---
Pt aox4. Reports feeling nauseas with vomiting episode. NSR on monitor with hr 98. BP 152/113. Denies chest pain or sob. Provider notified. Urine sample provided and sent to the lab.
[2023-01-03 19:52] LABS: Appearance Urine Cloudy; Color Urine Yellow; Glucose Urine UA >=1000 mg/dL (Negative); Leukocyte Esterase Urine Negative (Negative); Nitrite Urine Negative (Negative); Specific Gravity - Urine >= 1.030 (1.005-1.025); UMIC TRIGGER UACC YES; Urine Blood Moderate (2+) (Negative); Urine Ketones 80 mg/dL (Negative); Urine Protein 300 (3+) mg/dL (Neg-Trace)
[2023-01-03 20:22] LABS: Bacteria Urine 4+ (None Seen); RBC Urine >20 /HPF (0-2); UACC Culture Trigger YES
[2023-01-03] MEDS: Lactated Ringers 1,000 ML 999 ML IV (20:25)
[2023-01-03] MEDS: Metoclopramide HCl 10 MG/2 ML VIAL IVPUSH (20:25)
[2023-01-03] MEDS: diphenhydrAMINE HCL 50 MG/ML VIAL IVPUSH (20:25)
[2023-01-03 21:25] LABS: Glucose, Whole Blood 322 mg/dL (60-115)
[2023-01-03 22:00] VITALS: BP 137/72; PULSE 80; RESP 16; TEMP 37.1; O2SAT 97
[2023-01-03] MEDS: Insulin Regular, Human 100 UNIT/ML 3 ML VIAL IVPUSH (22:33)
--- NOTE | 2023-01-03 23:28 | PC.NURSE ---
Delay in med administration due to no IV access. Current U/S IV that was placed earlier is not working. MD at the bedside trying to obtain IV access.
[2023-01-04] VITALS: BP 143/76; PULSE 82; RESP 15; TEMP 36.9; O2SAT 97
--- NOTE | 2023-01-04 00:12 | PC.NURSE ---
Multiple unsuccessful attempts at obtain U/S guided IV access. at bedside to obtain central line access.
--- NOTE | 2023-01-04 00:23 | MHC.EDTECH ---
LACTIC ACID DRAWN ALSO 1ST AND 2 ND BLOOD CULTURE ALL SENT TO LAB .
[2023-01-04 00:35] LABS: Lactic Acid 0.7 mmol/L (0.5-2.0)
[2023-01-04] MEDS: cefTRIAXone sodium 1 GM in 0.9 % Sodium Chloride 50 ML IV (00:42)
--- NOTE | 2023-01-04 00:48 | PC.NURSE ---
Central line placed by MD with no complications.
[2023-01-04] MEDS: 0.9 % Sodium Chloride Flush 3 ML SYRINGE IVFLUSH ×3 (01:47→18:35)
[2023-01-04] MEDS: Enoxaparin Sodium 40 MG/0.4 ML SYRINGE SUBCUT ×2 (01:48→21:19)
[2023-01-04] MEDS: 0.9 % Sodium Chloride 1,000 ML 100 ML IVCONT ×2 (01:48→13:10)
[2023-01-04] MEDS: vancomycin/NS 2,000 MG/500 ML PLAST..BAG 250 MG IV (02:07)
--- NOTE | 2023-01-04 04:01 | PC.NURSE ---
Pt sleeping at the bedside. Breaths are even regular and unlabored with equal chest rises. No apparent distress noted. Will continue to monitor.
[2023-01-04 05:15] VITALS: BP 169/105; PULSE 86; TEMP 36.4; O2SAT 98
--- NOTE | 2023-01-04 06:33 | PM.IMHP ---
History of Present Illness Date of Service: 01/03/23 Chief Complaint: n/v 37-year-old female with past medical history of depression, anxiety, opioid use disorder, diabetes and hypertension presents to the hospital with complaints of intractable nausea vomiting. Patient had presented to the hospital on 12/31 with complaints of the same, patient was given IV fluids, antiemetics and sent home, returns today stating intractable nausea and vomiting, unable to keep anything down, feeling chills with no fever, denies any abdominal pain, no diarrhea constipation, no urinary symptoms and no lower extremity edema. When asked her for any evidence of skin infection or infection is site of IV drug injections patient denies, reports no shortness of breath or cough, and denies any urinary symptoms. On arrival to the ED patient found to have a heart rate of 107, otherwise stable Labs are significant for WBC count of 22, sodium 130, glucose of 322, normal lactic acid, UA positive for the WBC, bacteria and squamous cell with no leukocyte esterase or nitrite Given the leukocytosis and nausea vomiting, abdominal CT was obtained which showed gallbladder distension and sludge, an ultrasound of the abdomen was also obtained which showed distended gallbladder containing sludge with no additional specific findings of cholecystitis Patient given antibiotics and will be admitted for further management Review of Systems Review of Systems: Yes all other systems are reviewed and are negative PMFSH Medical History Anxiety and depression Diabetes Methadone maintenance therapy patient Polysubstance (excluding opioids) dependence, daily use Social History Alcohol intake: current Alcohol intake frequency: does not drink Patient Tobacco Use Status: Never used Tobacco Use of substances other than those prescribed or required for medical reasons: Yes Substance Use Type: Heroin, IV Drugs and Marijuana Substance Use Frequency: Chronic Longstanding Last Used Substance: Just Prior to Admission Any prior treatment program specific to substance use: No (reports on waiting list) Advance Directives: Yes Advance Directives on File: Yes Advance Directives Date on File: 01/11/22 Nutrition Risks: No Nutritional Risk service: No Current occupational status: employed Meds Allergies Allergy/AdvReac Type Severity Reaction Status Date / Time No Known Allergies Allergy Verified 01/03/23 13:47 Active Medications: Current Medications Acetaminophen (Acetaminophen 325 Mg Tablet) 650 mg PO Q6H PRN PRN Reason: Pain, Mild (Pain Scale 1-3) Docusate Sodium (Docusate Sodium 100 Mg Capsule) 100 mg PO DAILY PRN PRN Reason: Constipation Enoxaparin Sodium (Enoxaparin Sodium 40 Mg/0.4 Ml Syringe) 40 mg SUBCUT BEDTIME [facility] Last Admin: 01/04/23 01:48 Dose: 40 mg Sodium Chloride (Ns) 1,000 mls @ 100 mls/hr IVCONT .Q10H [facility] Last Admin: 01/04/23 01:48 Dose: 100 mls/hr Prochlorperazine Edisylate (Prochlorperazine Edisylate 10 Mg/2 Ml Vial) 5 mg IVPUSH Q6H PRN PRN Reason: Nausea and Vomiting Sodium Chloride (0.9 % Sodium Chloride Flush 3 Ml Syringe) 3 ml IVFLUSH QSHIFT [facility] Last Admin: 01/04/23 01:47 Dose: 3 ml Home Medications Medication Instructions Recorded Confirmed Last Taken Type methadone 10 mg/mL oral concentrate 100 mg PO DAILY 01/10/22 01/11/22 Unknown History insulin lispro 100 unit/mL See Protocol subcut USEASDIRECTD 01/03/23 01/03/23 Unknown History subcutaneous pen Physical Exam Vital Signs and Narrative: Vital Signs: Last Vital Signs Temp 97.6 F 01/04/23 05:15 Pulse 86 01/04/23 05:15 Resp 15 01/04/23 00:00 BP 169/105 H 01/04/23 05:15 Pulse Ox 98 01/04/23 05:15 O2 Del Method Room Air 01/04/23 05:15 BMI result Body Mass Index 42.1 Const: Other: Ill-appearing General: cooperative and no acute distress Orientation/consciousness: patient oriented x3 Eyes: General: appearance normal, both eyes and all related structures Resp: Effort & Inspection: normal respiratory effort Auscultation: clear to auscultation bilaterally Cardio: Rate: regular rate Rhythm: regular rhythm GI: Other: Abdomen is soft, nontender, no rebound or guarding Palpation (GI): Soft to palpation Auscultation: normal bowel sounds Skin: General skin exam: no rashes or lesions noted Neuro: General: patient oriented x3 Cognition (Neuro): normal cognition Extrem: General: Yes normal to inspection and Yes no pedal edema Results Labs 01/03/23 17:10 01/03/23 17:29 Labs: Laboratory Results - last 24 hr 01/03/23 01/03/23 01/03/23 16:46 17:10 17:29 MCV 77.4 L MCH 26.4 L MCHC 34.1 RDW 13.6 Plt Count TNP MPV 9.6 Immature Gran % (Auto) 1.1 H Neut % (Auto) 78.2 H Lymph % (Auto) 12.8 L [place] % (Auto) 7.6 Eos % (Auto) 0.0 Baso % (Auto) 0.3 Lymph # (Auto) 2.8 [place] # (Auto) 1.7 H Eos # (Auto) 0.0 Baso # (Auto) 0.1 Abs Immat Gran (auto) 0.24 H Absolute Neuts (auto) 17.2 H Absolute Nucleated RBC 0.000 Nucleated RBC % (auto) 0.0 VBG pH VBG pCO2 VBG pO2 VBG HCO3 VBG O2 Saturation VBG Base Excess Anion Gap 17 Estim Creat Clear Calc 110.9 Estimated GFR > 60 POC Glucose 376 H* Random Glucose 347 H Lactic Acid Calcium 9.5 Magnesium 1.9 Total Bilirubin 1.0 AST 14 ALT 13 Alkaline Phosphatase 99 Total Protein 8.8 H Albumin 3.9 Lipase 23 Urine Color Urine Appearance Urine pH Ur Specific [place] Urine Protein Urine Glucose (UA) Urine Ketones Urine Blood Urine Nitrite Ur Leukocyte Esterase Urine RBC Urine WBC Ur Squamous Epith Cells Urine Bacteria Hyaline Casts Acetone, Qual Negative 01/03/23 01/03/23 01/03/23 17:38 19:44 20:58 MCV MCH MCHC RDW Plt Count MPV Immature Gran % (Auto) Neut % (Auto) Lymph % (Auto) [place] % (Auto) Eos % (Auto) Baso % (Auto) Lymph # (Auto) [place] # (Auto) Eos # (Auto) Baso # (Auto) Abs Immat Gran (auto) Absolute Neuts (auto) Absolute Nucleated RBC Nucleated RBC % (auto) VBG pH 7.42 VBG pCO2 47 VBG pO2 45 VBG HCO3 31 H VBG O2 Saturation 64.0 VBG Base Excess 6.1 Anion Gap Estim Creat Clear Calc Estimated GFR POC Glucose 322 H Random Glucose Lactic Acid Calcium Magnesium Total Bilirubin AST ALT Alkaline Phosphatase Total Protein Albumin Lipase Urine Color Yellow Urine Appearance Cloudy Urine pH 6.0 Ur Specific [place] >= 1.030 H Urine Protein 300 (3+) H Urine Glucose (UA) >=1000 H Urine Ketones 80 Urine Blood Moderate (2+) H Urine Nitrite Negative Ur Leukocyte Esterase Negative Urine RBC >20 H Urine WBC 6-10 H Ur Squamous Epith Cells 11-20 Urine Bacteria 4+ Hyaline Casts 11-20 Acetone, Qual 01/04/23 00:21 MCV MCH MCHC RDW Plt Count MPV Immature Gran % (Auto) Neut % (Auto) Lymph % (Auto) [place] % (Auto) Eos % (Auto) Baso % (Auto) Lymph # (Auto) [place] # (Auto) Eos # (Auto) Baso # (Auto) Abs Immat Gran (auto) Absolute Neuts (auto) Absolute Nucleated RBC Nucleated RBC % (auto) VBG pH VBG pCO2 VBG pO2 VBG HCO3 VBG O2 Saturation VBG Base Excess Anion Gap Estim Creat Clear Calc Estimated GFR POC Glucose Random Glucose Lactic Acid 0.7 Calcium Magnesium Total Bilirubin AST ALT Alkaline Phosphatase Total Protein Albumin Lipase Urine Color Urine Appearance Urine pH Ur Specific [place] Urine Protein Urine Glucose (UA) Urine Ketones Urine Blood Urine Nitrite Ur Leukocyte Esterase Urine RBC Urine WBC Ur Squamous Epith Cells Urine Bacteria Hyaline Casts Acetone, Qual Imaging Radiologist's Impressions: Impressions Chest X-Ray 01/03/23 21:35 IMPRESSION: Unremarkable chest examination. Abdomen/Pelvis CT 01/03/23 21:57 IMPRESSION: Gallbladder is distended with mild layering dense material which may reflect stones or biliary sludge. No pericholecystic fluid. Lack of IV contrast limits evaluation for hyperemia. Abdomen Ultrasound 01/03/23 23:25 IMPRESSION: 1. Distended gallbladder containing sludge. No additional specific findings of cholecystitis. 2. Hepatic steatosis. Assessment and Plan (1) Intractable nausea and vomiting: Status: Acute (2) Gallbladder sludge: Status: Acute (3) Leukocytosis: Status: Acute Plan 37-year-old female with past medical history of IV drug use, diabetes, hypertension presents to the hospital with intractable nausea vomiting # intractable nausea vomiting - has history of hyperemesis cannabinoid syndrome, does use marijuana, but also has evidence of possible gallbladder distension and sludge - abdominal CT and ultrasound as above - who will treat with antiemetics, IV fluids - will obtain HIDA scan - will consult General surgery # acute cholecystitis? - patient tachycardic, has leukocytosis - evidence of gallbladder distension and sludge - will treat with IV antibiotics prophylactically - general surgery consulted - will obtain HIDA scan # diabetes - low-dose sinus cancel on - diabetic diet # hypertension - stable - continue antihypertensives # IV drug use - no evidence of skin infection - continue methadone\ DVT prophylaxis: Lovenox Given need for IV antibiotics patient will require minimum 2 nights inpatient hospital stay for further management monitoring Time Spent With Patient Time: Total time managing care of this patient today ____ minutes. Quality Stroke Does the patient have a stroke diagnosis?: No VTE Prior VTE?: No VTE Risk Level:: Medical - moderate - high VTE Device Contraindication: Treatment Not Indicated VTE Drug Contraindication: N/A - Med Ordered
[2023-01-04 06:50] LABS: MANUAL DIFF FLAG NO
[2023-01-04 06:58] LABS: Basophils Absolute Auto 0.1 X10*3/uL (0.0-0.2); Basophils Percent Auto 0.4 % (0-2); Eosinophils Percent Auto 0.1 % (0-4); Hematocrit 39.3 % (37.0-47.0); Hemoglobin 12.7 g/dl (12.0-16.0); Imm Gran Pct Auto 0.7 % (0.0-0.4); Lymphocytes Absolute Auto 3.5 X10*3/uL (1.2-4.9); Lymphocytes Percent Auto 24.4 % (20-40); Mean Corpuscular HGB Conc 32.3 g/dl (31.0-35.0); Mean Corpuscular Hemoglobin 25.7 pg (27.0-33.0); Mean Corpuscular Volume 79.4 fL (80.0-98.0); Mean Platelet Volume 9.1 fL (9.4-12.3); Monocytes Absolute Auto 1.3 X10*3/uL (0.1-1.2); Monocytes Percent Auto 8.9 % (2-11); Neutrophils Absolute Auto 9.4 x10*3/uL (2.0-8.3); Neutrophils Percent Auto 65.5 % (45-73); Platelet Count 415 X10*3/uL (160-400); Red Blood Count 4.95 X10*6/uL (4.20-5.50); Red Cell Distribution Width 13.5 % (11.0-16.0); White Blood Count 14.3 X10*3/uL (4.8-10.8)
[2023-01-04 07:04] VITALS: BP 144/84; PULSE 75; RESP 12; TEMP 36.4; O2SAT 95
[2023-01-04 07:11] LABS: Glucose, Whole Blood 316 mg/dL (60-115)
[2023-01-04 07:22] LABS: Anion Gap 16 (12-20); Blood Urea Nitrogen 13 mg/dL (9-16); Calcium 8.2 mg/dL (8.4-10.2); Carbon Dioxide 26 mmol/L (22-29); Chloride 94 mmol/L (96-108); Estimated Glomerular Filt Rate > 60; Glucose Random 288 mg/dL (60-115); Potassium 3.2 mmol/L (3.3-5.1); Sodium 133 mmol/L (135-145)
--- NOTE | 2023-01-04 07:40 | MHC.EDTECH ---
POC completed and reported to RN. Call schuler in reach, able to make needs known.
--- NOTE | 2023-01-04 07:40 | PC.NURSE ---
pt is a/o x 4 no sob/karen noted speaks in full sentences. pt is sleeping on her l side. triple lumen to r neck. ns infusing at 100ml/hr. pt is npo for hida scan today. pt aware of plan of care.
[2023-01-04] MEDS: metroNIDAZOLE 500 MG TABLET PO ×2 (07:55→16:26)
[2023-01-04] MEDS: amLODIPine Besylate 5 MG TABLET PO (07:55)
[2023-01-04 09:30] VITALS: BP 150/83; PULSE 72; RESP 14; TEMP 36.6; O2SAT 97
[2023-01-04 09:54] LABS: Alanine Aminotransferase 10 U/L (0-31); Alkaline Phosphatase 77 U/L (39-117); Aspartate Amino Transferase 14 U/L (5-31); Bilirubin Direct 0.2 mg/dL (0.0-0.5); Bilirubin Total 0.7 mg/dL (0.0-1.0); Magnesium 1.8 mg/dL (1.6-2.6); Total Protein 6.7 g/dL (6.5-8.0)
[2023-01-04] MEDS: Insulin Lispro 100 UNIT/ML 3 ML VIAL SUBCUT ×3 (10:20→21:19)
[2023-01-04] MEDS: Potassium Chloride/H20 10 MEQ/100 ML PIGGYBACK 100 MEQ IV ×4 (10:35→20:10)
[2023-01-04 10:42] VITALS: BP 157/91; PULSE 81; RESP 12; TEMP 36.5; O2SAT 98
--- NOTE | 2023-01-04 10:43 | PC.NURSE ---
surgery (jordy) at bedside, pt aware of plan of care.
--- NOTE | 2023-01-04 11:07 | P.CONGS_ITS ---
History of Present Illness Consult details Consult date: 01/04/23 <TAZ Branham Last Filed: 01/04/23 15:06> Requesting physician: Chey Gill <TAZ Branham Last Filed: 01/04/23 15:06> Narrative: 37-year-old female with past medical history of cyclic vomiting syndome, depression, anxiety, opioid use disorder, diabetes and hypertension presents to the hospital with complaints of intractable vomiting. Patient had presented to the hospital on 12/31 with the same complaints. She was given IV fluids, antiemetics and sent home. She reports she was still vomiting at that time and this persisted for days. She therefore returned to the ED. She has been unable to keep any PO intake down. She denies any abdominal pain, fever, chills, diarrhea, constipation. She had a leukocytosis on labs and CT scan was therefore obtained which showed GB sludge. ABD US was therefore performed which again showed GB sludge and distended GB without pericholecystic fluid or wall thickening. She was admitted to [facility] in January [place] with a very similar presentation and improved with IVF and antiemetics. She had a leukocytosis at that time and CT scan also demonstrated GB sludge. She also reports an episode of cyclic vomiting symptoms in June. She denies pain with any of these episodes. She has been using heroin and marijuana. She uses 5-10 bags of heroin a day. She feels improved currently without any nausea. She actually feels hungry. <TAZ Branham Last Filed: 01/04/23 15:06> Review of Systems Constitutional: Constitutional: Denies chills and Denies fever(s) <TAZ Branham Last Filed: 01/04/23 15:06> ENT: Denies dizziness <TAZ Branham Last Filed: 01/04/23 15:06> Cardiovascular: Cardiovascular: Denies chest pain and Denies dyspnea <TAZ Branham Last Filed: 01/04/23 15:06> Respiratory: Respiratory: Denies dyspnea <TAZ Branham Last Filed: 01/04/23 15:06> Gastrointestinal: Gastrointestinal: Reports as per HPI <Yaneth Connell PA-C - Last Filed: 01/04/23 15:06> Genitourinary: Genitourinary: Denies hematuria and Denies difficulty voiding <TAZ Branham Last Filed: 01/04/23 15:06> Integumentary/Breasts: Skin/Breast: Denies rash and Denies jaundice <TAZ Branham Last Filed: 01/04/23 15:06> Neurologic: Denies dizziness <TAZ Branham Last Filed: 12/24 15:06> PMF Past Medical History Medical History: Medical History Anxiety and depression Diabetes Methadone maintenance therapy patient Polysubstance (excluding opioids) dependence, daily use <TAZ Branham Last Filed: 01/04/23 15:06> Social History Social History: Social History Alcohol intake: current Alcohol intake frequency: does not drink Patient Tobacco Use Status: Never used Tobacco Use of substances other than those prescribed or required for medical reasons: Yes Substance Use Type: Heroin, IV Drugs and Marijuana Substance Use Frequency: Chronic Longstanding Last Used Substance: Just Prior to Admission Any prior treatment program specific to substance use: No (reports on waiting list) Advance Directives: Yes Advance Directives on File: Yes Advance Directives Date on File: 01/11/22 Nutrition Risks: No Nutritional Risk service: No Current occupational status: employed <TAZ Branham Last Filed: 01/04/23 15:06> Meds Allergies/Adverse reactions: Allergies Allergy/AdvReac Type Severity Reaction Status Date / Time No Known Allergies Allergy Verified 01/03/23 13:47 <TAZ Branham Last Filed: 01/04/23 15:06> Active Medications: Current Medications Acetaminophen (Acetaminophen 325 Mg Tablet) 650 mg PO Q6H PRN PRN Reason: Pain, Mild (Pain Scale 1-3) Amlodipine Besylate (Amlodipine Besylate 5 Mg Tablet) 5 mg PO DAILY [facility]; Protocol Last Admin: 01/04/23 07:55 Dose: 5 mg Docusate Sodium (Docusate Sodium 100 Mg Capsule) 100 mg PO DAILY PRN PRN Reason: Constipation Enoxaparin Sodium (Enoxaparin Sodium 40 Mg/0.4 Ml Syringe) 40 mg SUBCUT BEDTIME [facility] Last Admin: 01/04/23 01:48 Dose: 40 mg Glucose (Glucose Gel 15 Gm Gel..Gram.) 15 gm PO Q15M PRN; Protocol PRN Reason: per Hypoglycemia Standing Ord. Sodium Chloride (Ns) 1,000 mls @ 100 mls/hr IVCONT .Q10H [facility] Last Admin: 01/04/23 01:48 Dose: 100 mls/hr Ceftriaxone Sodium 1 gm/ (Sodium Chloride) 50 mls @ 100 mls/hr IV Q24H [facility] Dextrose (D10) 250 mls @ 750 mls/hr IV Q15M PRN; Protocol PRN Reason: per Hypoglycemia Standing Ord. Potassium Chloride (Potassium Chloride/H20) 10 meq in 100 mls @ 100 mls/hr IV Q1H [facility] Stop: 01/04/23 12:14 Last Admin: 01/04/23 10:35 Dose: 100 mls/hr Insulin Human Lispro (Insulin Lispro 100 Unit/Ml 3 Ml Vial) 0 unit SUBCUT QIDACHS [facility]; Protocol Last Admin: 01/04/23 07:56 Dose: Not Given Metronidazole (Metronidazole 500 Mg Tablet) 500 mg PO Q8H [facility] Last Admin: 01/04/23 07:55 Dose: 500 mg Prochlorperazine Edisylate (Prochlorperazine Edisylate 10 Mg/2 Ml Vial) 5 mg IVPUSH Q6H PRN PRN Reason: Nausea and Vomiting Sodium Chloride (0.9 % Sodium Chloride Flush 3 Ml Syringe) 3 ml IVFLUSH QSHIFT [facility] Last Admin: 01/04/23 07:55 Dose: 3 ml <Yaneth Connell PA-C - Last Filed: 01/04/23 15:06> Home medications: Home Medications Medication Instructions Recorded Confirmed Last Taken Type methadone 10 mg/mL oral concentrate 100 mg PO DAILY 01/10/22 01/04/23 12/31/22 History insulin lispro 100 unit/mL See Protocol subcut USEASDIRECTD 01/03/23 01/03/23 Unknown History subcutaneous pen <Yaneth TAZ Connell [employer] Last Filed: 01/04/23 15:06> Physical Exam Vital Signs: Vital Signs: Last Vital Signs Temp 97.7 F 01/04/23 10:42 Pulse 81 01/04/23 10:42 Resp 12 01/04/23 10:42 BP 157/91 H 01/04/23 10:42 Pulse Ox 98 01/04/23 10:42 O2 Del Method Room Air 01/04/23 10:42 BMI result Body Mass Index 42.1 <Yaneth Connell PA-C [employer] Last Filed: 01/04/23 15:06> Const: General: comfortable, no acute distress and alert <Yaneth Connell PA-C [employer] Last Filed: 01/04/23 15:06> Orientation/consciousness: patient oriented x3 <Yaneth Connell PA-C [facility] Last Filed: 01/04/23 15:06> Resp: Effort & Inspection: normal respiratory effort <Yaneth Connell PA-C [employer] Last Filed: 01/04/23 15:06> Cardio: Rate: regular rate <Yaneth Connell PA-C [employer] Last Filed: 01/04/23 15:06> GI: Other: corpulent abdomen <Yaneth Conenll PA-C [employer] Last Filed: 01/04/23 15:06> Inspection: No distended <Yaneth Connell PA-C [employer] Last Filed: 01/04/23 15:06> Palpation (GI): Soft to palpation, nontender (negative juarez sign), no guarding and not rigid <Yaneth Connell PA-C [employer] Last Filed: 01/04/23 15:06> Percussion: Yes normal to percussion <Yaneth Connell PA-C [employer] Last Filed: 01/04/23 15:06> Skin: General skin exam: no rashes or lesions noted and no jaundice <Yaneth Connell PA-C [employer] Last Filed: 01/04/23 15:06> Neuro: General: patient oriented x3 and moves all extremities <Yaneth Connell PA-C [employer] Last Filed: 01/04/23 15:06> Extrem: Other: left upper arm with large scab to medial aspect, no surrounding erythema or edema or fluctuance <Yaneth Connell PA-C - Last Filed: 01/04/23 15:06> Results Labs Result diagrams: 01/04/23 05:56 01/04/23 05:56 <Yaneth Conenll PA-C - Last Filed: 01/04/23 15:06> Labs: Abnormal lab results 01/03/23 01/03/23 01/03/23 Range/Units 16:46 17:10 17:29 WBC 22.0 H (4.8-10.8) X10*3/uL RBC 5.53 H (4.20-5.50) X10*6/uL MCV 77.4 L (80.0-98.0) fL MCH 26.4 L (27.0-33.0) pg Plt Count (160-400) X10*3/uL MPV (9.4-12.3) fL Immature Gran % (Auto) 1.1 H (0.0-0.4) % Neut % (Auto) 78.2 H (45-73) % Lymph % (Auto) 12.8 L (20-40) % [place] # (Auto) 1.7 H (0.1-1.2) X10*3/uL Abs Immat Gran (auto) 0.24 H (0.00-0.03) X10*3/uL Absolute Neuts (auto) 17.2 H (2.0-8.3) x10*3/uL VBG HCO3 (22-26) mmol/L Sodium 130 L (135-145) mmol/L Potassium (3.3-5.1) mmol/L Chloride 89 L (96-108) mmol/L POC Glucose 376 H* (60-115) mg/dL Random Glucose 347 H (60-115) mg/dL Calcium (8.4-10.2) mg/dL Total Protein 8.8 H (6.5-8.0) g/dL Albumin (3.5-5.0) g/dL Ur Specific [place] (1.005-1.025) Urine Protein (Neg-Trace) mg/dL Urine Glucose (UA) (Negative) mg/dL Urine Blood (Negative) Urine RBC (0-2) /HPF Urine WBC (0-5) /HPF 01/03/23 01/03/23 01/03/23 Range/Units 17:38 19:44 20:58 WBC (4.8-10.8) X10*3/uL RBC (4.20-5.50) X10*6/uL MCV (80.0-98.0) fL MCH (27.0-33.0) pg Plt Count (160-400) X10*3/uL MPV (9.4-12.3) fL Immature Gran % (Auto) (0.0-0.4) % Neut % (Auto) (45-73) % Lymph % (Auto) (20-40) % [place] # (Auto) (0.1-1.2) X10*3/uL Abs Immat Gran (auto) (0.00-0.03) X10*3/uL Absolute Neuts (auto) (2.0-8.3) x10*3/uL VBG HCO3 31 H (22-26) mmol/L Sodium (135-145) mmol/L Potassium (3.3-5.1) mmol/L Chloride (96-108) mmol/L POC Glucose 322 H (60-115) mg/dL Random Glucose (60-115) mg/dL Calcium (8.4-10.2) mg/dL Total Protein (6.5-8.0) g/dL Albumin (3.5-5.0) g/dL Ur Specific [place] >= 1.030 H (1.005-1.025) Urine Protein 300 (3+) H (Neg-Trace) mg/dL Urine Glucose (UA) >=1000 H (Negative) mg/dL Urine Blood Moderate (2+) H (Negative) Urine RBC >20 H (0-2) /HPF Urine WBC 6-10 H (0-5) /HPF 01/04/23 01/04/23 01/04/23 Range/Units 05:56 05:56 07:07 WBC 14.3 H (4.8-10.8) X10*3/uL RBC (4.20-5.50) X10*6/uL MCV 79.4 L (80.0-98.0) fL MCH 25.7 L (27.0-33.0) pg Plt Count 415 H D (160-400) X10*3/uL MPV 9.1 L (9.4-12.3) fL Immature Gran % (Auto) 0.7 H (0.0-0.4) % Neut % (Auto) (45-73) % Lymph % (Auto) (20-40) % [place] # (Auto) 1.3 H (0.1-1.2) X10*3/uL Abs Immat Gran (auto) 0.10 H (0.00-0.03) X10*3/uL Absolute Neuts (auto) 9.4 H (2.0-8.3) x10*3/uL VBG HCO3 (22-26) mmol/L Sodium 133 L (135-145) mmol/L Potassium 3.2 L (3.3-5.1) mmol/L Chloride 94 L (96-108) mmol/L POC Glucose 316 H (60-115) mg/dL Random Glucose 288 H (60-115) mg/dL Calcium 8.2 L D (8.4-10.2) mg/dL Total Protein (6.5-8.0) g/dL Albumin 3.0 L (3.5-5.0) g/dL Ur Specific [place] (1.005-1.025) Urine Protein (Neg-Trace) mg/dL Urine Glucose (UA) (Negative) mg/dL Urine Blood (Negative) Urine RBC (0-2) /HPF Urine WBC (0-5) /HPF Short CBC 01/03/23 01/04/23 Range/Units 17:10 05:56 WBC 22.0 H 14.3 H (4.8-10.8) X10*3/uL Hgb 14.6 12.7 (12.0-16.0) g/dl Hct 42.8 39.3 (37.0-47.0) % Plt Count TNP 415 H D BMP 01/03/23 01/04/23 17:29 05:56 Sodium 130 L 133 L Potassium 3.8 D 3.2 L Chloride 89 L 94 L Carbon Dioxide 28 26 BUN 16 13 Creatinine 0.98 0.75 Calcium 9.5 8.2 L D Liver Function 01/03/23 01/04/23 Range/Units 17:29 05:56 Total Bilirubin 1.0 0.7 (0.0-1.0) mg/dL Direct Bilirubin 0.2 (0.0-0.5) mg/dL AST 14 14 (5-31) U/L ALT 13 10 (0-31) U/L Alkaline Phosphatase 99 77 (39-117) U/L Albumin 3.9 3.0 L (3.5-5.0) g/dL Urine 01/03/23 Range/Units 19:44 Urine Color Yellow Urine Appearance Cloudy Urine pH 6.0 (5.0-9.0) Ur Specific [place] >= 1.030 H (1.005-1.025) Urine Protein 300 (3+) H (Neg-Trace) mg/dL Urine Glucose (UA) >=1000 H (Negative) mg/dL All other labs normal. <Yaneth Connell PA-C - Last Filed: 01/04/23 15:06> Assessment and Plan (1) Intractable nausea and vomiting: Status: Acute <Yaneth Connell PA-C - Last Filed: 01/04/23 15:06> 37 year old female who presented to the ED with intractable vomiting found to have leukocytosis and GB sludge on imaging. Surgery was therefore consulted. I do not feel her symptoms are secondary to gallbladder disease. She had similar presentation a year ago with leukocytosis and CT scan which also demonstrated GB sludge at that time. There is no pericholecystic fluid or wall thickening to suggest cholecystitis. Her abdomen is completely benign and nontender. L eukocytosis is likely reactive from vomiting. Will await HIDA scan. If shows patent cystic duct, can advance diet as tolerated. <Yaneth Connell PA-C - Last Filed: 01/04/23 15:06> Time Spent With Patient Time: Total time managing care of this patient today ____ minutes. <Yaneth Connell PA-C - Last Filed: 01/04/23 15:06> Procedures Date of Service Date of Service: 01/04/23 <Ludwig Pascual MD - Last Filed: 01/04/23 14:45>
--- NOTE | 2023-01-04 12:35 | HE.PHANOTE ---
re methadone hcrc 100mg last dose 12/31
--- NOTE | 2023-01-04 15:40 | P.PNIM_ITS ---
Subjective Subjective Date of Service: 01/04/23 Interval History: intractable nausea vomiting Review of Systems has nasuea , no vomitin no fevers Physical Exam Vital Signs: Vital Signs: Last Vital Signs Temp 97.7 F 01/04/23 10:42 Pulse 81 01/04/23 10:42 Resp 12 01/04/23 10:42 BP 157/91 H 01/04/23 10:42 Pulse Ox 98 01/04/23 10:42 O2 Del Method Room Air 01/04/23 10:42 BMI result Body Mass Index 42.1 Appearance: Alert.? Oriented X3.? cvs: rrr, [id number] , no murmur res: clear to auscultation ,no rhonchii or wheezing abd: no rebound or guarding ,nt, bs present. ext pulses present , no cyanosis . neuro: axo3 , nonfocal. Objective Data Active Medications Acetaminophen (Acetaminophen 325 Mg Tablet) 650 mg PO Q6H PRN PRN Reason: Pain, Mild (Pain Scale 1-3) Amlodipine Besylate (Amlodipine Besylate 5 Mg Tablet) 5 mg PO DAILY [facility]; Protocol Last Admin: 01/04/23 07:55 Dose: 5 mg Documented By: VISHNU Docusate Sodium (Docusate Sodium 100 Mg Capsule) 100 mg PO DAILY PRN PRN Reason: Constipation Enoxaparin Sodium (Enoxaparin Sodium 40 Mg/0.4 Ml Syringe) 40 mg SUBCUT BEDTIME [facility] Last Admin: 01/04/23 01:48 Dose: 40 mg Documented By: AMMON Glucose (Glucose Gel 15 Gm Gel..Gram.) 15 gm PO Q15M PRN; Protocol PRN Reason: per Hypoglycemia Standing Ord. Sodium Chloride (Ns) 1,000 mls @ 100 mls/hr IVCONT .Q10H [facility] Last Admin: 01/04/23 13:10 Dose: 100 mls/hr Documented By: ART Ceftriaxone Sodium 1 gm/ (Sodium Chloride) 50 mls @ 100 mls/hr IV Q24H [facility] Dextrose (D10) 250 mls @ 750 mls/hr IV Q15M PRN; Protocol PRN Reason: per Hypoglycemia Standing Ord. Potassium Chloride (Potassium Chloride/H20) 10 meq in 100 mls @ 100 mls/hr IV Q1H [facility] Stop: 01/04/23 15:44 Last Admin: 01/04/23 13:48 Dose: 100 mls/hr Documented By: ART Insulin Human Lispro (Insulin Lispro 100 Unit/Ml 3 Ml Vial) 0 unit SUBCUT QIDACHS [facility]; Protocol Last Admin: 01/04/23 12:23 Dose: Not Given Documented By: ART Non-Admin Reason: NPO Metronidazole (Metronidazole 500 Mg Tablet) 500 mg PO Q8H [facility] Last Admin: 01/04/23 07:55 Dose: 500 mg Documented By: VISHNU Prochlorperazine Edisylate (Prochlorperazine Edisylate 10 Mg/2 Ml Vial) 5 mg IVPUSH Q6H PRN PRN Reason: Nausea and Vomiting Sodium Chloride (0.9 % Sodium Chloride Flush 3 Ml Syringe) 3 ml IVFLUSH QSHIFT [facility] Last Admin: 01/04/23 07:55 Dose: 3 ml Documented By: VISHNU Labs 01/04/23 05:56 01/04/23 05:56 Labs: Laboratory Results - last 24 hr 01/03/23 01/03/23 01/03/23 16:46 17:10 17:29 MCV 77.4 L MCH 26.4 L MCHC 34.1 RDW 13.6 Plt Count TNP MPV 9.6 Immature Gran % (Auto) 1.1 H Neut % (Auto) 78.2 H Lymph % (Auto) 12.8 L [place] % (Auto) 7.6 Eos % (Auto) 0.0 Baso % (Auto) 0.3 Lymph # (Auto) 2.8 [place] # (Auto) 1.7 H Eos # (Auto) 0.0 Baso # (Auto) 0.1 Abs Immat Gran (auto) 0.24 H Absolute Neuts (auto) 17.2 H Absolute Nucleated RBC 0.000 Nucleated RBC % (auto) 0.0 VBG pH VBG pCO2 VBG pO2 VBG HCO3 VBG O2 Saturation VBG Base Excess Anion Gap 17 Estim Creat Clear Calc 110.9 Estimated GFR > 60 POC Glucose 376 H* Random Glucose 347 H Lactic Acid Calcium 9.5 Magnesium 1.9 Total Bilirubin 1.0 Direct Bilirubin AST 14 ALT 13 Alkaline Phosphatase 99 Total Protein 8.8 H Albumin 3.9 Lipase 23 Urine Color Urine Appearance Urine pH Ur Specific [place] Urine Protein Urine Glucose (UA) Urine Ketones Urine Blood Urine Nitrite Ur Leukocyte Esterase Urine RBC Urine WBC Ur Squamous Epith Cells Urine Bacteria Hyaline Casts Acetone, Qual Negative 01/03/23 01/03/23 01/03/23 17:38 19:44 20:58 MCV MCH MCHC RDW Plt Count MPV Immature Gran % (Auto) Neut % (Auto) Lymph % (Auto) [place] % (Auto) Eos % (Auto) Baso % (Auto) Lymph # (Auto) [place] # (Auto) Eos # (Auto) Baso # (Auto) Abs Immat Gran (auto) Absolute Neuts (auto) Absolute Nucleated RBC Nucleated RBC % (auto) VBG pH 7.42 VBG pCO2 47 VBG pO2 45 VBG HCO3 31 H VBG O2 Saturation 64.0 VBG Base Excess 6.1 Anion Gap Estim Creat Clear Calc Estimated GFR POC Glucose 322 H Random Glucose Lactic Acid Calcium Magnesium Total Bilirubin Direct Bilirubin AST ALT Alkaline Phosphatase Total Protein Albumin Lipase Urine Color Yellow Urine Appearance Cloudy Urine pH 6.0 Ur Specific [place] >= 1.030 H Urine Protein 300 (3+) H Urine Glucose (UA) >=1000 H Urine Ketones 80 Urine Blood Moderate (2+) H Urine Nitrite Negative Ur Leukocyte Esterase Negative Urine RBC >20 H Urine WBC 6-10 H Ur Squamous Epith Cells 11-20 Urine Bacteria 4+ Hyaline Casts 11-20 Acetone, Qual 01/04/23 01/04/23 01/04/23 00:21 05:56 05:56 MCV 79.4 L MCH 25.7 L MCHC 32.3 RDW 13.5 Plt Count 415 H D MPV 9.1 L Immature Gran % (Auto) 0.7 H Neut % (Auto) 65.5 Lymph % (Auto) 24.4 [place] % (Auto) 8.9 Eos % (Auto) 0.1 Baso % (Auto) 0.4 Lymph # (Auto) 3.5 [place] # (Auto) 1.3 H Eos # (Auto) 0.0 Baso # (Auto) 0.1 Abs Immat Gran (auto) 0.10 H Absolute Neuts (auto) 9.4 H Absolute Nucleated RBC 0.000 Nucleated RBC % (auto) 0.0 VBG pH VBG pCO2 VBG pO2 VBG HCO3 VBG O2 Saturation VBG Base Excess Anion Gap 16 Estim Creat Clear Calc 145.0 Estimated GFR > 60 POC Glucose Random Glucose 288 H Lactic Acid 0.7 Calcium 8.2 L D Magnesium 1.8 Total Bilirubin 0.7 Direct Bilirubin 0.2 AST 14 ALT 10 Alkaline Phosphatase 77 Total Protein 6.7 Albumin 3.0 L Lipase Urine Color Urine Appearance Urine pH Ur Specific [place] Urine Protein Urine Glucose (UA) Urine Ketones Urine Blood Urine Nitrite Ur Leukocyte Esterase Urine RBC Urine WBC Ur Squamous Epith Cells Urine Bacteria Hyaline Casts Acetone, Qual 01/04/23 07:07 MCV MCH MCHC RDW Plt Count MPV Immature Gran % (Auto) Neut % (Auto) Lymph % (Auto) [place] % (Auto) Eos % (Auto) Baso % (Auto) Lymph # (Auto) [place] # (Auto) Eos # (Auto) Baso # (Auto) Abs Immat Gran (auto) Absolute Neuts (auto) Absolute Nucleated RBC Nucleated RBC % (auto) VBG pH VBG pCO2 VBG pO2 VBG HCO3 VBG O2 Saturation VBG Base Excess Anion Gap Estim Creat Clear Calc Estimated GFR POC Glucose 316 H Random Glucose Lactic Acid Calcium Magnesium Total Bilirubin Direct Bilirubin AST ALT Alkaline Phosphatase Total Protein Albumin Lipase Urine Color Urine Appearance Urine pH Ur Specific [place] Urine Protein Urine Glucose (UA) Urine Ketones Urine Blood Urine Nitrite Ur Leukocyte Esterase Urine RBC Urine WBC Ur Squamous Epith Cells Urine Bacteria Hyaline Casts Acetone, Qual Microbiology Microbiology Results: Microbiology 01/03/23 20:24 Urine Culture - Preliminary Urine clean catch - Urine lynn top Culture too young to evaluate. Assessment and Plan (1) Intractable nausea and vomiting: Status: Acute Plan 37-year-old female with past medical history of IV drug use, diabetes, hypertension presents to the hospital with intractable nausea vomiting intractable nausea vomiting - has history of hyperemesis cannabinoid syndrome, does use marijuana, but also has evidence of possible gallbladder distension and sludge - abdominal CT and ultrasound as above - who will treat with antiemetics, IV fluids, HIDA scan General surgery: ?abdomen is completely benign and nontender. Leukocytosis is likely reactive from vomiting. await HIDA scan. If shows patent cystic duct, can advance diet as tolerated. acute cholecystitis? - patient tachycardic, has leukocytosis - evidence of gallbladder distension and sludge - will treat with IV antibiotics prophylactically - general surgery consulted - will obtain HIDA scan diabetes - low-dose sinus cancel on - diabetic diet hypertension - stable - continue antihypertensives IV drug use - no evidence of skin infection - continue methadone DVT prophylaxis:? Lovenox inapatient need: Intractable nausea vomiting: Multifactorial, need IV antiemetic, hydration, IV antibiotics, workup for cholecystitis. Time Spent With Patient Time: Total time managing care of this patient today ____ minutes. Quality Stroke Does the patient have a stroke diagnosis?: No VTE Prior VTE?: No VTE Risk Level:: Medical - moderate - high VTE Device Contraindication: Treatment Not Indicated VTE Drug Contraindication: N/A - Med Ordered
--- NOTE | 2023-01-04 19:30 | HE.PHANOTE ---
RE: potassium Spoke to nurse Milagro and mold yard supervisor Mirlande, there was some confusion about documentation on potassium earlier. Confirmed with Mirlande that I saw only 3 bags having been given, Milagro called around 1930 to acknowledge that provider does in fact want 4th bag given. Entered new order for 10mEq x 1
[2023-01-04 20:12] VITALS: BP 149/99; PULSE 82; RESP 14; O2SAT 95
--- NOTE | 2023-01-04 22:57 | MHC.CM.PN ---
CHRISTEL 01/04. Lives w daughter, Renee (20 years old). No DME/services. [employer] x2. HCP on file. No PCP. Polysubstance misuse. Needs addiction med consult. CARE team consult. D/C plan: Home. Pt will arrange transport home. CM to follow for any discharge needs.
[2023-01-05] MEDS: metroNIDAZOLE 500 MG TABLET PO ×4 (00:01→21:47)
[2023-01-05] MEDS: cefTRIAXone sodium 1 GM in 0.9 % Sodium Chloride 50 ML IV (00:02)
[2023-01-05 04:00] VITALS: BP 155/94; PULSE 96; RESP 20; TEMP 36.3; O2SAT 97
[2023-01-05] MEDS: Prochlorperazine Edisylate 10 MG/2 ML VIAL 5 MG IVPUSH (05:10)
[2023-01-05 06:56] LABS: Glucose, Whole Blood 304 mg/dL (60-115)
[2023-01-05 06:56] LABS: Glucose, Whole Blood 283 mg/dL (60-115)
[2023-01-05 06:56] LABS: Glucose, Whole Blood 396 mg/dL (60-115)
[2023-01-05 07:20] LABS: Glucose, Whole Blood 241 mg/dL (60-115)
[2023-01-05] MEDS: Insulin Lispro 100 UNIT/ML 3 ML VIAL SUBCUT ×5 (07:39→21:48)
[2023-01-05] MEDS: amLODIPine Besylate 5 MG TABLET PO (07:39)
--- NOTE | 2023-01-05 07:44 | PC.NURSE ---
tolerating clears denies any discomfort at this time
[2023-01-05 09:38] VITALS: BMI 41.6
[2023-01-05] MEDS: 0.9 % Sodium Chloride 1,000 ML 100 ML IVCONT ×2 (10:38→21:59)
--- NOTE | 2023-01-05 10:56 | P.CDIM_ITS ---
PROVIDER RESPONSE TEXT: To clarify, the appropriate diagnosis supported by the clinical indicators: Unable to determine QUERY TEXT: PHYSICIAN'S DOCUMENTATION REQUEST Date of Query: 01/05/2023 08:10 AM EDT Patient Name: Misty Schmitt Admit Date: 01/04/2023 Dear Hieu Hickey, A review of the medical record indicates additional documentation may be needed. Please review below and update the documentation accordingly. Clinical Indicators: LAB FINDINGS: sodium 130 L IV fluids Based on the above, is there a diagnosis that correlates with these lab findings: Hyponatremia present on arrival, resolved etc. Other Unable to determine Other (explain)Clinically unable to determine (explain)Thank you, Mary Napoles, CCS, CDIS Use of terms such as suspected, likely, concern for, or probable (associated with a specific diagnosi s that is being evaluated, monitored, or treated as if it exists) are acceptable and can be coded in the inpatient se tting, when documented at the time of discharge. Please use your independent medical judgment in providing your response. THIS QUERY IS PART OF THE PERMANENT MEDICAL RECORD
--- NOTE | 2023-01-05 10:59 | P.CDIM_ITS ---
PROVIDER RESPONSE TEXT: To clarify, the appropriate diagnosis supported by the clinical indicators: Other QUERY TEXT: PHYSICIAN'S DOCUMENTATION REQUEST Date of Query: 01/05/2023 10:41 AM EDT Patient Name: Misty Schmitt Admit Date: 01/04/2023 Dear Hieu Hiceky, A review of the medical record indicates additional documentation may be needed. Please review below and update the documentation accordingly. Clinical Indicators: Nursing assessment Height and Weight: BMI 41.6 Extreme Obesity Class III 124.1kg If possible, please provide an associated diagnosis related to the abnormal BMI, such as: Obesity Due to excess calories Severe or Morbid Obesity With alveolar hypoventilation Severe or Morbid Obesity Without alveolar hypoventilation Other Other (explain)Clinically unable to determine (explain)Thank you, Mary Napoles, CCS, CDIS Use of terms such as suspected, likely, concern for, or probable (associated with a specific diagnosi s that is being evaluated, monitored, or treated as if it exists) are acceptable and can be coded in the inpatient se tting, when documented at the time of discharge. Please use your independent medical judgment in providing your response. THIS QUERY IS PART OF THE PERMANENT MEDICAL RECORD
--- NOTE | 2023-01-05 10:59 | P.CDIM_ITS ---
PROVIDER RESPONSE TEXT: To clarify, the appropriate diagnosis supported by the clinical indicators: Diabetes mellitus Type 2 with hyperglycemia or other QUERY TEXT: PHYSICIAN'S DOCUMENTATION REQUEST Date of Query: 01/05/2023 08:14 AM EDT Patient Name: Misty Schmitt Admit Date: 01/04/2023 Dear Hieu Hickey, A review of the medical record indicates additional documentation may be needed. Please review below and update the documentation accordingly. Clinical Indicators: LAB FINDINGS: POC glucose 376 396 H Insulin Please clarify the following regarding the Diabetes Mellitus (DM)/labs: Diabetes mellitus Type 2 with hyperglycemia or other Unable to determine Other (explain)Clinically unable to determine (explain)Thank you, Mary Napoles, CCS, CDIS Use of terms such as suspected, likely, concern for, or probable (associated with a specific diagnosi s that is being evaluated, monitored, or treated as if it exists) are acceptable and can be coded in the inpatient se tting, when documented at the time of discharge. Please use your independent medical judgment in providing your response. THIS QUERY IS PART OF THE PERMANENT MEDICAL RECORD
--- NOTE | 2023-01-05 11:03 | PM.PNGS ---
Subjective Subjective Date of Service: 01/05/23 Interval history: Patient eating breakfast, and no acute abdominal complaints. Physical Exam Vital Signs: Vital Signs: Last Vital Signs Temp 97.3 F 01/05/23 04:00 Pulse 96 01/05/23 04:00 Resp 20 01/05/23 04:00 BP 155/94 H 01/05/23 04:00 Pulse Ox 97 01/05/23 04:00 O2 Del Method Room Air 01/05/23 04:00 BMI result Body Mass Index 41.6 GI: Other: Abdomen soft and benign. Objective Data Active Medications Acetaminophen (Acetaminophen 325 Mg Tablet) 650 mg PO Q6H PRN PRN Reason: Pain, Mild (Pain Scale 1-3) Amlodipine Besylate (Amlodipine Besylate 5 Mg Tablet) 5 mg PO DAILY [facility]; Protocol Last Admin: 01/05/23 07:39 Dose: 5 mg Documented By: PHILIP Docusate Sodium (Docusate Sodium 100 Mg Capsule) 100 mg PO DAILY PRN PRN Reason: Constipation Enoxaparin Sodium (Enoxaparin Sodium 40 Mg/0.4 Ml Syringe) 40 mg SUBCUT BEDTIME [facility] Last Admin: 01/04/23 21:19 Dose: 40 mg Documented By: JULIANA Glucose (Glucose Gel 15 Gm Gel..Gram.) 15 gm PO Q15M PRN; Protocol PRN Reason: per Hypoglycemia Standing Ord. Sodium Chloride (Ns) 1,000 mls @ 100 mls/hr IVCONT .Q10H [facility] Last Admin: 01/05/23 10:38 Dose: 100 mls/hr Documented By: LONG Ceftriaxone Sodium 1 gm/ (Sodium Chloride) 50 mls @ 100 mls/hr IV Q24H [facility] Last Infusion: 01/05/23 00:36 Dose: 0 mls/hr Documented By: IRINA Dextrose (D10) 250 mls @ 750 mls/hr IV Q15M PRN; Protocol PRN Reason: per Hypoglycemia Standing Ord. Insulin Human Lispro (Insulin Lispro 100 Unit/Ml 3 Ml Vial) 0 unit SUBCUT QIDACHS [facility]; Protocol Last Admin: 01/05/23 07:39 Dose: 4 unit Documented By: PHILIP Metronidazole (Metronidazole 500 Mg Tablet) 500 mg PO Q8H [facility] Last Admin: 01/05/23 07:39 Dose: 500 mg Documented By: PHILIP Ondansetron HCl (Ondansetron Hcl 4 Mg/2 Ml Vial) 4 mg IVPUSH Q6H PRN PRN Reason: nauseated Prochlorperazine Edisylate (Prochlorperazine Edisylate 10 Mg/2 Ml Vial) 5 mg IVPUSH Q6H PRN PRN Reason: Nausea and Vomiting Last Admin: 01/05/23 05:10 Dose: 5 mg Documented By: IRINA Sodium Chloride (0.9 % Sodium Chloride Flush 3 Ml Syringe) [facility] Last Admin: 01/05/23 07:52 Dose: Not Given Documented By: PHILIP Non-Admin Reason: IV Running Labs 01/04/23 05:56 01/04/23 05:56 Labs: Laboratory Results - last 24 hr 01/04/23 01/04/23 01/04/23 12:00 17:22 20:07 POC Glucose 283 H 396 H* 304 H 01/05/23 07:16 POC Glucose 241 H Microbiology Microbiology Results: Microbiology 01/04/23 00:22 Blood Culture - Preliminary Blood - Venous No growth after 24 hours. 01/04/23 00:21 Blood Culture - Preliminary Blood - Venous No growth after 24 hours. 01/03/23 20:24 Urine Culture - Preliminary Urine clean catch - Urine lynn top Culture too young to evaluate. Procedures Date of Service Date of Service: 01/05/23 Progress Note: A&P Assessment and plan (1) Intractable nausea and vomiting: Status: Acute Plan Improving abdominal pain. HIDA scan negative. No acute surgical issues. Will follow-up p.r.n.. Time Spent With Patient Time: Total time managing care of this patient today ____ minutes. Quality Stroke Does the patient have a stroke diagnosis?: No VTE Prior VTE?: No VTE Risk Level:: Medical - moderate - high VTE Device Contraindication: Treatment Not Indicated VTE Drug Contraindication: N/A - Med Ordered
[2023-01-05 11:26] LABS: Glucose, Whole Blood 314 mg/dL (60-115)
[2023-01-05 11:48] VITALS: BP 179/83; PULSE 77; RESP 20; TEMP 36.2; O2SAT 97
[2023-01-05] MEDS: amLODIPine Besylate 2.5 MG TABLET PO (13:07)
--- NOTE | 2023-01-05 13:55 | MHC.RECOVRN ---
Met with pt in 373 after receiving Addiction Medicine consult. Pt sitting in chair, awake, alert, easily engages in conversation. Pt reports feeling better. Discussed cannabis hyperemesis syndrome, pt does not believe that is the case. Pt educated regarding the syndrome, states Well I guess if I take my insulin and it happens again then I will know. Pt reports using cannabis for years and this has only happened twice. Pt reports using a reduced amount of heroin, had been using 20 bags at a time and is currently reporting 2 bags at a time. Pt is currently on methadone through [facility] in [place], 100 mg, x 2 years. Prior to coming to the hospital, pt reports attempting to go to ATS at [facility], has been on wait list. Discussed outpatient supports, pt declines referrals at this time. Pt provided with written resources, along with t/w contact information, and is encouraged to reach out if needed. Denies questions or concerns for t/w.
[2023-01-05 13:56] LABS: Anion Gap 13 (12-20); Blood Urea Nitrogen 6 mg/dL (9-16); Calcium 8.7 mg/dL (8.4-10.2); Carbon Dioxide 28 mmol/L (22-29); Chloride 95 mmol/L (96-108); Estimated Glomerular Filt Rate > 60; Glucose Random 381 mg/dL (60-115); Potassium 3.5 mmol/L (3.3-5.1); Sodium 132 mmol/L (135-145)
[2023-01-05] MEDS: methADONE HCl 20 MG/2 ML ORAL.CONC 50 MG PO (13:57)
--- NOTE | 2023-01-05 15:08 | P.PNIM_ITS ---
Subjective Subjective Date of Service: 01/05/23 Interval History: intractable nausea vomiting Review of Systems Vomiting seems to be improving, still feels somewhat nauseated otherwise denies any abdominal pain or fever chills. Physical Exam Vital Signs: Vital Signs: Last Vital Signs Temp 97.2 F 01/05/23 11:48 Pulse 77 01/05/23 11:48 Resp 20 01/05/23 11:48 BP 179/83 H 01/05/23 11:48 Pulse Ox 97 01/05/23 11:48 O2 Del Method Room Air 01/05/23 11:48 BMI result Body Mass Index 41.6 Appearance: Alert.? Oriented X3.? cvs: [id number], [id number] , no murmur res: clear to auscultation ,no rhonchii or wheezing abd: no rebound or guarding ,nt, bs present. ext pulses present , no cyanosis . neuro: axo3 , nonfocal. Objective Data Active Medications Acetaminophen (Acetaminophen 325 Mg Tablet) 650 mg PO Q6H PRN PRN Reason: Pain, Mild (Pain Scale 1-3) Amlodipine Besylate (Amlodipine Besylate 5 Mg Tablet) 5 mg PO DAILY [facility]; Protocol Last Admin: 01/05/23 07:39 Dose: 5 mg Documented By: PHILIP Docusate Sodium (Docusate Sodium 100 Mg Capsule) 100 mg PO DAILY PRN PRN Reason: Constipation Enoxaparin Sodium (Enoxaparin Sodium 40 Mg/0.4 Ml Syringe) 40 mg SUBCUT BEDTIME [facility] Last Admin: 01/04/23 21:19 Dose: 40 mg Documented By: JULIANA Glucose (Glucose Gel 15 Gm Gel..Gram.) 15 gm PO Q15M PRN; Protocol PRN Reason: per Hypoglycemia Standing Ord. Sodium Chloride (Ns) 1,000 mls @ 100 mls/hr IVCONT .Q10H [facility] Last Admin: 01/05/23 14:03 Dose: Not Given Documented By: LONG Non-Admin Reason: IV Running Ceftriaxone Sodium 1 gm/ (Sodium Chloride) 50 mls @ 100 mls/hr IV Q24H [facility] Last Infusion: 01/05/23 00:36 Dose: 0 mls/hr Documented By: IRINA Dextrose (D10) 250 mls @ 750 mls/hr IV Q15M PRN; Protocol PRN Reason: per Hypoglycemia Standing Ord. Insulin Human Lispro (Insulin Lispro 100 Unit/Ml 3 Ml Vial) 0 unit SUBCUT QIDACHS [facility]; Protocol Last Admin: 01/05/23 12:47 Dose: 8 unit Documented By: LONG Methadone HCl (Methadone Hcl 20 Mg/2 Ml Oral.Conc) 50 mg PO DAILY [facility] Last Admin: 01/05/23 13:57 Dose: 50 mg Documented By: LONG Metronidazole (Metronidazole 500 Mg Tablet) 500 mg PO Q8H [facility] Last Admin: 01/05/23 14:00 Dose: 500 mg Documented By: LONG Ondansetron HCl (Ondansetron Hcl 4 Mg/2 Ml Vial) 4 mg IVPUSH Q6H PRN PRN Reason: nauseated Prochlorperazine Edisylate (Prochlorperazine Edisylate 10 Mg/2 Ml Vial) 5 mg IVPUSH Q6H PRN PRN Reason: Nausea and Vomiting Last Admin: 01/05/23 05:10 Dose: 5 mg Documented By: IRINA Sodium Chloride (0.9 % Sodium Chloride Flush 3 Ml Syringe) [facility] Last Admin: 01/05/23 07:52 Dose: Not Given Documented By: PHILIP Non-Admin Reason: IV Running Labs 01/04/23 05:56 01/05/23 12:56 Labs: Laboratory Results - last 24 hr 01/04/23 01/04/23 01/04/23 12:00 17:22 20:07 Anion Gap Estim Creat Clear Calc Estimated GFR POC Glucose 283 H 396 H* 304 H Random Glucose Calcium 01/05/23 01/05/23 01/05/23 07:16 11:23 12:56 Anion Gap 13 Estim Creat Clear Calc 135.0 Estimated GFR > 60 POC Glucose 241 H 314 H Random Glucose 381 H* Calcium 8.7 D Microbiology Microbiology Results: Microbiology 01/03/23 20:24 Urine Culture - Final Urine clean catch - Urine lynn top 01/04/23 00:22 Blood Culture - Preliminary Blood - Venous No growth after 24 hours. 01/04/23 00:21 Blood Culture - Preliminary Blood - Venous No growth after 24 hours. Assessment and Plan (1) Intractable nausea and vomiting: Status: Acute Plan 37-year-old female with past medical history of IV drug use, diabetes, hypertension presents to the hospital with intractable nausea vomiting intractable nausea vomiting - has history of hyperemesis cannabinoid syndrome, does use marijuana, but also has evidence of possible gallbladder distension and sludge - abdominal CT and ultrasound as above,hida scan negative - who will treat with antiemetics, IV fluids ,will try fullliquid diet if tolerates. General surgery: ?abdomen is completely benign and nontender. Leukocytosis is likely reactive from vomiting, less likely cholecytsitis ,observe off antibiotics, blood culture [id number]. diabetes with hyperglycemia pseudohyponatremia due to hyperglycemia fs with adjutsed coverage diabetic diet hypertension - stable - continue antihypertensives IV drug use - no evidence of skin infection( ch arm changes -d/w ID) - continue methadone morbid obesity: Encouraged to lose weight. DVT prophylaxis:? Lovenox inapatient need: Intractable nausea vomiting: Multifactorial, need IV antiemetic, hydration Time Spent With Patient Time: Total time managing care of this patient today ____ minutes. Quality Stroke Does the patient have a stroke diagnosis?: No VTE Prior VTE?: No VTE Risk Level:: Medical - moderate - high VTE Device Contraindication: Treatment Not Indicated VTE Drug Contraindication: N/A - Med Ordered
[2023-01-05 15:10] VITALS: BP 126/85; PULSE 93; RESP 18; TEMP 36.3; O2SAT 98
[2023-01-05 15:58] LABS: Amphetamine Screen Urine Not Detected (Not Detect); Barbiturates, Urine Not Detected (Not Detect); Benzodiazepines Screen Urine Not Detected (Not Detect); Cannabinoid Screen Urine POSITIVE (Not Detect); Cocaine Screen Urine Not Detected (Not Detect); Fentanyl, urine POSITIVE (Not Detect); Opiate Screen Urine POSITIVE (Not Detect); Phencyclidine Screen Urine Not Detected (Not Detect)
[2023-01-05 16:12] LABS: Glucose, Whole Blood 332 mg/dL (60-115)
[2023-01-05] MEDS: 0.9 % Sodium Chloride Flush 3 ML SYRINGE IVFLUSH ×2 (17:26→21:54)
[2023-01-05 20:00] VITALS: BP 136/72; PULSE 80; RESP 18; TEMP 36.4; O2SAT 95
[2023-01-05 21:40] LABS: Glucose, Whole Blood 175 mg/dL (60-115)
[2023-01-05] MEDS: Enoxaparin Sodium 40 MG/0.4 ML SYRINGE SUBCUT (21:48)
[2023-01-05 23:32] VITALS: BP 139/75; PULSE 84; RESP 18; TEMP 36.7; O2SAT 97
--- NOTE | 2023-01-05 23:56 | P.CNID_ITS ---
History of Present Illness Data of Consult Service Date: 01/05/23 Requesting physician: Hieu Hickey Primary Care Provider: None Physician HPI Reason for consult: left arm eschar lesion She presents with nausea and vomiting. She mentions not being able to keep anything down. She has no fever or chills. She has scabbed lesion from injecting drugs left humerus she has been picking at and denies pain. Review of Systems Review of Systems: Yes all other systems are reviewed and are negative PMFSH Past Medical History Medical History (Updated 01/05/23 @ 23:59 by Ann Urrutia MD) Anxiety and depression Diabetes Methadone maintenance therapy patient Polysubstance (excluding opioids) dependence, daily use Rash Family History Family history: reviewed and not pertinent Social History Social History Household Members: Family Household Members Other:: her neice Housing: House Do you presently have visiting nurse or other home services: No Alcohol intake: current Alcohol intake frequency: does not drink Patient Tobacco Use Status: Former Tobacco user Quit Date: 09/03/2017 Tobacco use type: Cigarette Cigarette Packs Per Day: 3 Cigarettes Per Day: 60.0 Years Smoked: 2 e-Cigarette/Vaping Use: Never Used Substance Use Type: Heroin and Marijuana Advance Directives Date on File: 01/11/22 service: No Current occupational status: unemployed Meds Allergies Allergy/AdvReac Type Severity Reaction Status Date / Time No Known Allergies Allergy Verified 01/03/23 13:47 Active Medications: Current Medications Acetaminophen (Acetaminophen 325 Mg Tablet) 650 mg PO Q6H PRN PRN Reason: Pain, Mild (Pain Scale 1-3) Amlodipine Besylate (Amlodipine Besylate 5 Mg Tablet) 5 mg PO DAILY [facility]; Protocol Last Admin: 01/05/23 07:39 Dose: 5 mg Docusate Sodium (Docusate Sodium 100 Mg Capsule) 100 mg PO DAILY PRN PRN Reason: Constipation Enoxaparin Sodium (Enoxaparin Sodium 40 Mg/0.4 Ml Syringe) 40 mg SUBCUT BEDTIME [facility] Last Admin: 01/05/23 21:48 Dose: 40 mg Glucose (Glucose Gel 15 Gm Gel..Gram.) 15 gm PO Q15M PRN; Protocol PRN Reason: per Hypoglycemia Standing Ord. Ceftriaxone Sodium 1 gm/ (Sodium Chloride) 50 mls @ 100 mls/hr IV Q24H [facility] Last Infusion: 01/05/23 00:36 Dose: Infused Dextrose (D10) 250 mls @ 750 mls/hr IV Q15M PRN; Protocol PRN Reason: per Hypoglycemia Standing Ord. Insulin Human Lispro (Insulin Lispro 100 Unit/Ml 3 Ml Vial) 0 unit SUBCUT QIDACHS [facility]; Protocol Last Admin: 01/05/23 21:48 Dose: 2 unit Methadone HCl (Methadone Hcl 20 Mg/2 Ml Oral.Conc) 50 mg PO DAILY [facility] Last Admin: 01/05/23 13:57 Dose: 50 mg Metronidazole (Metronidazole 500 Mg Tablet) 500 mg PO Q8H [facility] Last Admin: 01/05/23 21:47 Dose: 500 mg Ondansetron HCl (Ondansetron Hcl 4 Mg/2 Ml Vial) 4 mg IVPUSH Q6H PRN PRN Reason: nauseated Prochlorperazine Edisylate (Prochlorperazine Edisylate 10 Mg/2 Ml Vial) 5 mg IVPUSH Q6H PRN PRN Reason: Nausea and Vomiting Last Admin: 01/05/23 05:10 Dose: 5 mg Sodium Chloride (0.9 % Sodium Chloride Flush 3 Ml Syringe) [facility] Last Admin: 01/05/23 21:54 Dose: 3 ml Home Medications Medication Instructions Recorded Confirmed Last Taken Type methadone 10 mg/mL oral concentrate 100 mg PO DAILY 01/10/22 01/04/23 12/31/22 History insulin lispro 100 unit/mL See Protocol subcut [id number] 01/03/23 01/03/23 Unknown History subcutaneous pen lisinopril 5 mg tablet mg PO DAILY 01/05/23 2 Months Ago History ~11/05/22 uncertain of dose Physical Exam Vital Signs: Vital Signs: Last Vital Signs Temp 98.0 F 01/05/23 23:32 Pulse 84 01/05/23 23:32 Resp 18 01/05/23 23:32 BP 139/75 01/05/23 23:32 Pulse Ox 97 01/05/23 23:32 O2 Del Method Room Air 01/05/23 20:00 BMI result Body Mass Index 41.6 Const: General: cooperative HEENT: Head: Yes normal to inspection Face and sinus: Yes normal facial exam Mouth: Normal oral and palatal mucosa present Teeth and gingiva: dentition normal Eyes: General: appearance normal, both eyes and all related structures Pupils: Equal, round and reactive pupils present Resp: Effort & Inspection: normal respiratory effort Cardio: Rate: regular rate Rhythm: regular rhythm GI: Palpation (GI): Soft to palpation and nontender : General: Yes no CVA tenderness Back/Spine/Pelvis: Back: no CVA tenderness Skin: General skin exam: no rashes or lesions noted Neuro: General: moves all extremities Cranial nerves: Yes Equal, round and reactive pupils present Extrem: Other: scabbed eschar left arm 3 x 5 cm,no cellulitis Psych: Appearance: grossly normal Results Labs 01/04/23 05:56 01/05/23 12:56 Labs: BMP 01/05/23 12:56 Sodium 132 L Potassium 3.5 Chloride 95 L Carbon Dioxide 28 BUN 6 L Creatinine 0.80 Calcium 8.7 D Microbiology Microbiology Results: Microbiology 01/03/23 20:24 Urine clean catch - Urine lynn top Urine Culture - Final 01/04/23 00:22 Blood - Venous Blood Culture - Preliminary No growth after 24 hours. 01/04/23 00:21 Blood - Venous Blood Culture - Preliminary No growth after 24 hours. Assessment and Plan (1) Leukocytosis: Status: Acute likely due to nausea and vomiting (2) Rash: Status: Acute scaly lesion due to injection drug use,no evidence of cellulitis Plan Stop antibiotics and observe. Time Spent With Patient Time: Total time managing care of this patient today ____ minutes.
[2023-01-06 04:00] VITALS: BP 133/63; PULSE 77; RESP 18; TEMP 36.7; O2SAT 94
[2023-01-06] MEDS: ondansetron HCL 4 MG/2 ML VIAL IVPUSH (04:55)
[2023-01-06 06:57] LABS: Anion Gap 11 (12-20); Blood Urea Nitrogen 4 mg/dL (9-16); Calcium 8.1 mg/dL (8.4-10.2); Carbon Dioxide 27 mmol/L (22-29); Chloride 98 mmol/L (96-108); Creatinine Clr Calc Pharmacy 147.9; Estimated Glomerular Filt Rate > 60; Glucose Random 309 mg/dL (60-115); Potassium 3.4 mmol/L (3.3-5.1); Sodium 133 mmol/L (135-145)
[2023-01-06 07:02] VITALS: BP 160/88; PULSE 73; RESP 18; TEMP 35.5; O2SAT 98
[2023-01-06 07:21] LABS: Glucose, Whole Blood 335 mg/dL (60-115)
[2023-01-06] MEDS: methADONE HCl 20 MG/2 ML ORAL.CONC 50 MG PO (08:11)
[2023-01-06] MEDS: Insulin Lispro 100 UNIT/ML 3 ML VIAL SUBCUT ×2 (08:11→11:53)
[2023-01-06] MEDS: amLODIPine Besylate 5 MG TABLET PO (08:11)
[2023-01-06] MEDS: 0.9 % Sodium Chloride Flush 3 ML SYRINGE IVFLUSH (08:14)
--- NOTE | 2023-01-06 09:42 | PM.EVENT ---
Event Note Date of Service: 01/06/23 Event Note: Addiction consult placed seen by Recovery Support RN, please see note from 01/05/2023 Time Spent With Patient Time: Total time managing care of this patient today ____ minutes.
--- NOTE | 2023-01-06 11:05 | P.PNIM_ITS ---
Subjective Subjective Date of Service: 01/06/23 Interval History: intractable nausea vomiting Review of Systems Vomiting seems to be improving, still feels somewhat nauseated unable to tolerate food yet otherwise denies any abdominal pain or fever chills. Physical Exam Vital Signs: Vital Signs: Last Vital Signs Temp 96 F L 01/06/23 07:02 Pulse 73 01/06/23 07:02 Resp 18 01/06/23 07:02 BP 160/88 H 01/06/23 07:02 Pulse Ox 98 01/06/23 07:02 O2 Del Method Room Air 01/06/23 07:02 BMI result Body Mass Index 41.6 Appearance: Alert.? Oriented X3.? cvs: rrr, [id number] , no murmur res: clear to auscultation ,no rhonchii or wheezing abd: no rebound or guarding ,nt, bs present. ext pulses present , no cyanosis . neuro: axo3 , nonfocal. Objective Data Active Medications Acetaminophen (Acetaminophen 325 Mg Tablet) 650 mg PO Q6H PRN PRN Reason: Pain, Mild (Pain Scale 1-3) Amlodipine Besylate (Amlodipine Besylate 5 Mg Tablet) 5 mg PO DAILY [facility]; Protocol Last Admin: 01/06/23 08:11 Dose: 5 mg Documented By: BE Docusate Sodium (Docusate Sodium 100 Mg Capsule) 100 mg PO DAILY PRN PRN Reason: Constipation Enoxaparin Sodium (Enoxaparin Sodium 40 Mg/0.4 Ml Syringe) 40 mg SUBCUT BEDTIME [facility] Last Admin: 01/05/23 21:48 Dose: 40 mg Documented By: CHIKI Glucose (Glucose Gel 15 Gm Gel..Gram.) 15 gm PO Q15M PRN; Protocol PRN Reason: per Hypoglycemia Standing Ord. Dextrose (D10) 250 mls @ 750 mls/hr IV Q15M PRN; Protocol PRN Reason: per Hypoglycemia Standing Ord. Insulin Human Lispro (Insulin Lispro 100 Unit/Ml 3 Ml Vial) 0 unit SUBCUT QIDACHS [facility]; Protocol Last Admin: 01/06/23 08:11 Dose: 10 unit Documented By: EB Methadone HCl (Methadone Hcl 20 Mg/2 Ml Oral.Conc) 50 mg PO DAILY [facility] Last Admin: 01/06/23 08:11 Dose: 50 mg Documented By: BE Ondansetron HCl (Ondansetron Hcl 4 Mg/2 Ml Vial) 4 mg IVPUSH Q6H PRN PRN Reason: nauseated Last Admin: 01/06/23 04:55 Dose: 4 mg Documented By: CHIKI Prochlorperazine Edisylate (Prochlorperazine Edisylate 10 Mg/2 Ml Vial) 5 mg IVPUSH Q6H PRN PRN Reason: Nausea and Vomiting Last Admin: 01/05/23 05:10 Dose: 5 mg Documented By: IRINA Sodium Chloride (0.9 % Sodium Chloride Flush 3 Ml Syringe) [facility] Last Admin: 01/06/23 08:14 Dose: 3 ml Documented By: BE Labs 01/04/23 05:56 01/06/23 06:27 Labs: Laboratory Results - last 24 hr 01/05/23 01/05/23 01/05/23 11:23 12:56 15:27 Anion Gap 13 Estim Creat Clear Calc 135.0 Estimated GFR > 60 POC Glucose 314 H Random Glucose 381 H* Calcium 8.7 D Urine Opiates Screen POSITIVE H Urine Fentanyl Screen POSITIVE H Ur Barbiturates Screen Not Detected Ur Phencyclidine Scrn Not Detected Ur Amphetamines Screen Not Detected U Benzodiazepines Scrn Not Detected Urine Cocaine Screen Not Detected U Marijuana (THC) Screen POSITIVE H 01/05/23 01/05/23 01/06/23 16:09 21:35 06:27 Anion Gap 11 L Estim Creat Clear Calc 147.9 Estimated GFR > 60 POC Glucose 332 H 175 H Random Glucose 309 H Calcium 8.1 L D Urine Opiates Screen Urine Fentanyl Screen Ur Barbiturates Screen Ur Phencyclidine Scrn Ur Amphetamines Screen U Benzodiazepines Scrn Urine Cocaine Screen U Marijuana (THC) Screen 01/06/23 07:17 Anion Gap Estim Creat Clear Calc Estimated GFR POC Glucose 335 H Random Glucose Calcium Urine Opiates Screen Urine Fentanyl Screen Ur Barbiturates Screen Ur Phencyclidine Scrn Ur Amphetamines Screen U Benzodiazepines Scrn Urine Cocaine Screen U Marijuana (THC) Screen Microbiology Microbiology Results: Microbiology 01/04/23 00:22 Blood Culture - Preliminary Blood - Venous No growth after 48 hours. 01/04/23 00:21 Blood Culture - Preliminary Blood - Venous No growth after 48 hours. 01/03/23 20:24 Urine Culture - Final Urine clean catch - Urine lynn top Assessment and Plan (1) Intractable nausea and vomiting: Status: Acute Plan 37-year-old female with past medical history of IV drug use, diabetes, hypertension presents to the hospital with intractable nausea vomiting intractable nausea vomiting - has history of hyperemesis cannabinoid syndrome, does use marijuana, but also has evidence of possible gallbladder distension and sludge - abdominal CT and ultrasound as above,hida scan negative - who will treat with antiemetics, IV fluids ,will try fullliquid diet if to lerates. General surgery: ?abdomen is completely benign and nontender. Leukocytosis is likely reactive from vomiting, less likely cholecytsitis ,observe off antibiotics, blood culture [id number]. diabetes with hyperglycemia pseudohyponatremia due to hyperglycemia fs with adjutsed coverage diabetic diet hypertension - stable - continue antihypertensives IV drug use - no evidence of skin infection( ch arm changes -d/w ID) - continue methadone morbid obesity: Encouraged to lose weight. DVT prophylaxis:? Lovenox inapatient need: Intractable nausea vomiting: Multifactorial, need IV antieme tic, hydration Time Spent With Patient Time: Total time managing care of this patient today ____ minutes. Quality Stroke Does the patient have a stroke diagnosis?: No VTE Prior VTE?: No VTE Risk Level:: Medical - moderate - high VTE Device Contraindication: Treatment Not Indicated VTE Drug Contraindication: N/A - Med Ordered
[2023-01-06 11:11] LABS: Glucose, Whole Blood 248 mg/dL (60-115)
[2023-01-06 11:55] VITALS: TEMP 36.6
--- NOTE | 2023-01-06 13:38 | PM.DS ---
DS: Providers Provider Date of Service: 01/06/23 Date of admission: 01/03/23 23:45 Date of discharge: 01/06/23 Primary care physician: None Physician Consults: 01/04/23 06:34 Consult to General Surgery Routine Consulting Provider[place] [facility] [place] [facility] Reason for consultation: N/v, gallbladder showing sludge, distended Has provider been notified: No 01/05/23 12:35 Addiction Medicine Routine Consulting Provider: Addiction Covering Reason for consultation: drug use Has provider been notified: No 01/05/23 13:56 Consult to Infectious Diseases Routine Consulting Provider[place] [facility] [place] Reason for consultation: left arm cellulitis Has provider been notified: No Attending physician on discharge: Hieu Hickey Discharging clinician: Hieu Hickey DS: Diagnosis Discharge Diagnosis (1) Intractable nausea and vomiting: Status: Acute DS: Summary Hospital Course Hospital Course: 37-year-old female with past medical history of depression, anxiety, opioid use disorder, diabetes and hypertension presents to the hospital with complaints of intractable nausea vomiting.? Patient had presented to the hospital on 12/31 with complaints of the same, patient was given IV fluids, antiemetics and sent home, returns today stating intractable nausea and vomiting, unable to keep anything down, feeling chills with no fever, denies any abdominal pain, no diarrhea constipation, no urinary symptoms and no lower extremity edema.? When asked her for any evidence of skin infection or infection is site of IV drug injections patient denies, reports no shortness of breath or cough, and denies any urinary symptoms.? On arrival to the ED patient found to have a heart rate of 107, otherwise stable Labs are significant for WBC count of 22, sodium 130, glucose of 322, normal lactic acid, UA positive for the WBC, bacteria and squamous cell with no leukocyte esterase or nitrite Given the leukocytosis and nausea vomiting, abdominal CT was obtained which showed gallbladder distension and sludge, an ultrasound of the abdomen was also obtained which showed distended gallbladder containing sludge with no additional specific findings of cholecystitis Patient given antibiotics and will be admitted for further management. Hospital course: Patient admitted for intractable nausea vomiting: Started on a IV hydration, pain medication as well as CT of abdomen was done at done: With the supportive care patient seems to be improved significantly, tolerating diet, CT abdomen seems fine otherwise has some gallbladder sludge. HIDA scan negative, seen by surgery in no acute to intervention since patient is improving and abdomen is benign. Tolerating diet.Advised to encouraged hydration. Patient was strongly advised to abstain from marijuana if possible. Patient was also strongly advised to abstain from her IV drugs .insulin with hyperglycemia. Diabetes with hyperglycemia: Probably due to noncompliance, patient was strongly advised to be compliant with her insulin. Patient says that she has medications supplies for 1 month. Patient was also strongly advised to get PCP appointment. plan: Continue home medications and strongly advised compliance. In addition strongly advised to abstain from IV drug use. Seen by recovery demand information also given. Follow-up with PCP outpatient. Above management discussed with the patient in detail and she understand and in agreement with the above plan, time spent 50 minute. Time Spent with Patient Time attestation: Total time managing care of this patient today ____ minutes. Discharge coordination time: Greater than 30 minutes Quality: Safe Use of Opioids Does Pt have an Active Cancer Diagnosis on the Problem List?: No Quality: Stroke Does the patient have a stroke diagnosis?: No Physical Exam Vital Signs: Vital Signs: Last Vital Signs Temp 98 F 01/06/23 11:55 Pulse 73 01/06/23 07:02 Resp 18 01/06/23 07:02 BP 160/88 H 01/06/23 07:02 Pulse Ox 98 01/06/23 07:02 O2 Del Method Room Air 01/06/23 07:02 BMI result Body Mass Index 41.6 Appearance: Alert.? Oriented X3.? cvs: rrr, [id number] , no murmur res: clear to auscultation ,no rhonchii or wheezing abd: no rebound or guarding ,nt, bs present. ext pulses present , no cyanosis . neuro: axo3 , nonfocal. DS: Data Data Completed and Pending Labs on day of discharge: Laboratory Results - last 24 hr 01/05/23 01/05/23 01/05/23 12:56 15:27 16:09 Sodium 132 L Potassium 3.5 Chloride 95 L Carbon Dioxide 28 Anion Gap 13 BUN 6 L Creatinine 0.80 Estim Creat Clear Calc 135.0 Estimated GFR > 60 POC Glucose 332 H Random Glucose 381 H* Calcium 8.7 D Urine Opiates Screen POSITIVE H Urine Fentanyl Screen POSITIVE H Ur Barbiturates Screen Not Detected Ur Phencyclidine Scrn Not Detected Ur Amphetamines Screen Not Detected U Benzodiazepines Scrn Not Detected Urine Cocaine Screen Not Detected U Marijuana (THC) Screen POSITIVE H 01/05/23 01/06/23 01/06/23 21:35 06:27 07:17 Sodium 133 L Potassium 3.4 Chloride 98 Carbon Dioxide 27 Anion Gap 11 L BUN 4 L Creatinine 0.73 Estim Creat Clear Calc 147.9 Estimated GFR > 60 POC Glucose 175 H 335 H Random Glucose 309 H Calcium 8.1 L D Urine Opiates Screen Urine Fentanyl Screen Ur Barbiturates Screen Ur Phencyclidine Scrn Ur Amphetamines Screen U Benzodiazepines Scrn Urine Cocaine Screen U Marijuana (THC) Screen 01/06/23 11:06 Sodium Potassium Chloride Carbon Dioxide Anion Gap BUN Creatinine Estim Creat Clear Calc Estimated GFR POC Glucose 248 H Random Glucose Calcium Urine Opiates Screen Urine Fentanyl Screen Ur Barbiturates Screen Ur Phencyclidine Scrn Ur Amphetamines Screen U Benzodiazepines Scrn Urine Cocaine Screen U Marijuana (THC) Screen Preliminary micro results at discharge 01/04/23 00:22 Blood Culture - Preliminary Blood - Venous No growth after 48 hours. 01/04/23 00:21 Blood Culture - Preliminary Blood - Venous No growth after 48 hours. Imaging Chest x-ray: Radiologist's impression: ITS Impressions Chest X-Ray 01/03/23 21:35 IMPRESSION: Unremarkable chest examination. Abdomen/Pelvis CT 01/03/23 21:57 IMPRESSION: Gallbladder is distended with mild layering dense material which may reflect stones or biliary sludge. No pericholecystic fluid. Lack of IV contrast limits evaluation for hyperemia. Abdomen Ultrasound 01/03/23 23:25 IMPRESSION: 1. Distended gallbladder containing sludge. No additional specific findings of cholecystitis. 2. Hepatic steatosis. Hepatobiliary Scan Nuclear Medicine 01/04/23 16:00 IMPRESSION: Abnormal gallbladder ejection fraction of 0% at 30 minutes post-CCK. Normal hepatic uptake with patent cystic duct and CBD. Discharge Plan Discharge Patient Disposition: Home, Self-Care Discharge Diagnosis: Intractable nausea vomiting probably cyclic vomiting syndrome secondary to marijuana use. If Referrals: Physician,None [Primary Care Provider] - 1 Week Discharge Medications: Continued methadone 10 mg/mL Concentrate 100 mg PO DAILY amlodipine [Norvasc] 5 mg tablet 5 mg PO DAILY Qty: 30 0RF insulin lispro 100 unit/mL insulin pen See Protocol subcut USEASDIRECTD Protocol: Insulin Correction Scale Less than or equal to 110 ---- Give (units): 0 111 to 150 Give (units): 0 151 to 200 Give (units): 2 201 to 250 Give (units): 4 251 to 300 Give (units): 6 301 to 350 Give (units): 8 Greater than 350 Give (units): 10 Call MD if Blood Glucose > : 350 Rx Instructions: * Less than or equal to 110 ---- Give (units): 0 * 111 to 150 Give (units): 0 * 151 to 200 Give (units): 2 * 201 to 250 Give (units): 4 * 251 to 300 Give (units): 6 * 301 to 350 Give (units): 8 * Greater than 350 Give (units): 10 * Call MD if Blood Glucose > : 350 lisinopril 5 mg Tablet PO DAILY Discharge Orders: Discharge Order (Routine); Ordered 01/06/23 Ordered By: Hieu Hickey Diet: Advance to usual diet Activity on Discharge: As tolerated Stand Alone Forms: Patient Portal Discharge page Care Plan Goals: Patient admitted for intractable nausea vomiting: Started on a IV hydration, pain medication as well as CT of abdomen was done at done: With the supportive care patient seems to be improved significantly, tolerating diet, CT abdomen seems fine otherwise has some gallbladder sludge. HIDA scan negative, seen by surgery in no acute to intervention since patient is improving and abdomen is benign. Tolerating diet.Advised to encouraged hydration. Patient was strongly advised to abstain from marijuana if possible. Patient was also strongly advised to abstain from her IV drugs .insulin with hyperglycemia. Diabetes with hyperglycemia: Probably due to noncompliance, patient was strongly advised to be compliant with her insulin. Patient says that she has medications supplies for 1 month. Patient was also strongly advised to get PCP appointment. Health Concerns: As above. Plan of Treatment: As above. Assessment: As above.
--- NOTE | 2023-01-06 14:39 | MHC.CM.PN ---
PT WILL DC HOME TODAY WITH NO SERVICES VIA PRIVATE TRANSPORT
== END 2023-01-06 14:28 | disposition home or self-care (01) ==
LOC: HO.ED 21:24 → HO.EDOVER 23:50 → HO.S3 01-05 07:44
PROVIDERS: Physician Assistant; Admitting Provider Internal Medicine; Emergency Provider Emergency Medicine Emergency Medical Services; Visit Provider Internal Medicine
DX: R11.2 Nausea with vomiting, unspecified (principal)
CPT/HCPCS: 36415; 71045; 74176; 76705; 78227; 80048; 80053; 80076; 80307; 81001; 82009; 82803; 82947; 83605; 83690; 83735; 85025; 87040; 87086; 96361; 96365; 96366; 96367; 96372; 96375; 96376; 99221; 99285; A9537; J0696; J1200; J1650; J2405; J2765; J3370

== ENCOUNTER 2023-02-12 08:43 | Observation (INO) | payer OTHER, SELFPAY ==
[2023-02-12 08:57] VITALS: BP 182/108; BP 184/102; PULSE 86; PULSE 94; RESP 18; TEMP 37.1; O2SAT 98; O2SAT 99; BMI 41.8
--- NOTE | 2023-02-12 09:00 | MHC.EDTECH ---
POC 440. RN Selene santos
[2023-02-12 09:02] LABS: Glucose, Whole Blood 440 mg/dL (60-115)
--- NOTE | 2023-02-12 09:03 | PHA.MEDREC ---
Pharmacy Consult ? Medication Reconciliation Pharmacy has completed the medication reconciliation.
[2023-02-12 10:02] LABS: Basophils Percent Auto 0.3 % (0-2); Hematocrit 38.6 % (37.0-47.0); Hemoglobin 12.6 g/dl (12.0-16.0); Imm Gran Abs Auto 0.09 X10*3/uL (0.00-0.03); Imm Gran Pct Auto 0.6 % (0.0-0.4); Lymphocytes Percent Auto 6.7 % (20-40); MANUAL DIFF FLAG SCAN; Mean Corpuscular HGB Conc 32.6 g/dl (31.0-35.0); Mean Corpuscular Hemoglobin 25.8 pg (27.0-33.0); Mean Corpuscular Volume 78.9 fL (80.0-98.0); Mean Platelet Volume 8.8 fL (9.4-12.3); Monocytes Absolute Auto 0.3 X10*3/uL (0.1-1.2); Monocytes Percent Auto 1.7 % (2-11); Neutrophils Absolute Auto 13.4 x10*3/uL (2.0-8.3); Neutrophils Percent Auto 90.7 % (45-73); Platelet Count 365 X10*3/uL (160-400); Red Blood Count 4.89 X10*6/uL (4.20-5.50); Red Cell Distribution Width 14.1 % (11.0-16.0); SCAN SMEAR FLAG 1; White Blood Count 14.8 X10*3/uL (4.8-10.8)
[2023-02-12 10:12] LABS: Lactic Acid 1.8 mmol/L (0.5-2.0)
[2023-02-12] MEDS: Insulin Lispro 100 UNIT/ML 3 ML VIAL 10 UNIT SUBCUT (10:15)
[2023-02-12 10:23] LABS: SLIDE REVIEW VERIFIED
[2023-02-12] MEDS: 0.9 % Sodium Chloride 1,000 ML 999 ML IV ×2 (10:32→14:41)
[2023-02-12] MEDS: ondansetron HCL 4 MG/2 ML VIAL IVPUSH ×2 (10:34→14:42)
[2023-02-12] MEDS: LORazepam 2 MG/ML VIAL 1 MG IVPUSH (10:34)
[2023-02-12] MEDS: Famotidine/PF 20 MG/2 ML VIAL IVPUSH ×2 (10:37→20:04)
[2023-02-12 10:48] LABS: Appearance Urine Clear; Color Urine Yellow; Glucose Urine UA >=1000 mg/dL (Negative); Leukocyte Esterase Urine Negative (Negative); Nitrite Urine Negative (Negative); PH 6.5 (5.0-9.0); Specific Gravity - Urine >= 1.030 (1.005-1.025); UMIC TRIGGER UACC YES; Urine Blood Trace (Negative); Urine Ketones 80 mg/dL (Negative); Urine Protein 30 (1+) mg/dL (Neg-Trace)
[2023-02-12 10:50] LABS: Bacteria Urine 1+ (None Seen); Hyaline Casts Urine 0-2 /LPF (0-2); UACC Culture Trigger YES
--- NOTE | 2023-02-12 10:56 | ED_ITS ---
HPI - Nausea/Vomiting/Diarrhea General Chief complaint: Nausea/Vomiting/Diarrhea Stated complaint: N/V,HIGH BS 422,RAN OUT OF MEDS,HEROIN USE THIS AM Time Seen by Provider: 02/12/23 08:47 Source: patient and EMS Mode of arrival: EMS Limitations: no limitations History of Present Illness HPI Narrative: 37-year-old female with history of diabetes, intravenous drug abuse presents with nausea, vomiting abdominal pain. Symptoms are severe. There is no clear relieving or exacerbating features. There is no reports of fevers or chills. Pain is moderate to severe. The pain does not rate. The pain is generalized. The emesis has been nonbloody, nonbilious, no coffee-ground emesis. Patient's last use of IV drugs was this morning. Patient also reports an elevated blood sugar. Patient reports some generalized noncompliance with some of her prescriptions. Related Data Home Medications Medication Instructions Recorded Confirmed methadone 10 mg/mL oral concentrate 100 mg PO DAILY 01/10/22 01/04/23 insulin lispro 100 unit/mL See Protocol subcut USEASDIRECTD 01/03/23 02/12/23 subcutaneous pen Previous Rx's Medication Instructions Recorded amlodipine 5 mg tablet (Norvasc) 5 mg PO DAILY #30 tabs 12/31/22 ondansetron 4 mg disintegrating 4 mg PO Q8H #10 tabs 01/06/23 tablet blood sugar diagnostic (FreeStyle #100 ea 01/16/23 Lite Strips) metoclopramide HCl 10 mg tablet 10 mg PO Q6H PRN nausea and 02/12/23 (Reglan) vomiting #10 tabs ondansetron 4 mg disintegrating 4 mg PO TID PRN nausea and 02/12/23 tablet vomiting #10 tabs Allergies Allergy/AdvReac Type Severity Reaction Status Date / Time No Known Allergies Allergy Verified 01/03/23 13:47 Review of Systems Review of Systems: CONSTITUTIONAL: Denies weight loss, fever and chills. HEENT: Denies changes in vision and hearing. RESPIRATORY: Denies SOB and cough. CV: Denies palpitations no CP. GI: + abdominal pain, nausea, vomiting. : Denies dysuria and urinary frequency. MSK: Denies myalgia and joint pain. SKIN: Denies rash and pruritus. NEUROLOGICAL: Denies headache and syncope. PSYCHIATRIC: Denies recent changes in mood. Denies anxiety and depression. All other ROS are negative unless in HPI PMFSH Past Medical History Medical History Anxiety and depression Diabetes Methadone maintenance therapy patient Polysubstance (excluding opioids) dependence, daily use Rash Social History Social History Household Members: Family Household Members Other:: her neice Housing: House Do you presently have visiting nurse or other home services: No Alcohol intake: current Alcohol intake frequency: does not drink Patient Tobacco Use Status: Former Tobacco user Quit Date: 09/03/2017 Tobacco use type: Cigarette Cigarette Packs Per Day: 3 Cigarettes Per Day: 60.0 Years Smoked: 2 e-Cigarette/Vaping Use: Never Used Use of substances other than those prescribed or required for medical reasons: Yes Substance Use Type: Heroin Advance Directives: Yes Advance Directives on File: Yes Advance Directives Date on File: 01/11/22 service: No Current occupational status: unemployed Physical Exam Vital Signs: Vital Signs: Last Vital Signs Temp 98.7 F 02/12/23 08:57 Pulse 92 02/12/23 12:00 Resp 13 02/12/23 12:00 BP 157/100 H 02/12/23 12:00 Pulse Ox 94 02/12/23 12:00 O2 Del Method Room Air 02/12/23 12:00 BMI result Body Mass Index 41.8 GEN: Well developed, + acute distress, alert, oriented HEENT: Normocephalic, atraumatic, normal external ears, nose appears normal, no oropharyngeal edema or exudates Eyes: Normal to appearance Neck: Supple, no lymphadenopathy Respiratory: Talks in complete sentences, no respiratory distress, clear to auscultation bilaterally Cardiovascular: Regular rate and rhythm, no murmurs rubs or gallops Abdomen: Soft, tender, nondistended, no guarding, no rebound Back: No CVA tenderness Extremities: No clubbing cyanosis or edema Neurologic: No focal neurologic deficits, cranial nerves 2-12 intact, strength is 5/5 bilaterally Skin: No rash Course Course Course Narrative: 37-year-old female with diabetes, polysubstance abuse, intravenous drug abuse of opioids presents with abdominal pain, nausea, vomiting. Exam revealed generali zed tenderness without rebound or guarding. Patient will receive IV fluids, antiemetics, will his side on analgesics however, given patient's drug abuse history, would like to avoid opioids at this time. Reevaluation(s) Reevaluation #1: Patient is feeling better. However, she still has some mild nausea. Blood sugars remain elevated. Will provide patient with insulin and antiemetics, IV fluids and re-evaluate. Time: 13:52 Reevaluation #2: Patient has intractable nausea vomiting will contact hospitalist Services see about admission. Time: 15:45 Medications Administered Discontinued Medications Generic Name Dose Route Start Last Admin Trade Name Freq PRN Reason Stop Dose Admin Famotidine 20 mg 02/12/23 08:52 02/12/23 10:37 Famotidine/Pf 20 Mg/2 Ml Vial IVPUSH 02/12/23 08:53 20 mg ONCE ONE Administration Sodium Chloride 1,000 mls @ 999 mls/hr 02/12/23 09:00 02/12/23 13:30 Ns IV 02/12/23 10:00 Infused .Q1H1M NASH Infusion Sodium Chloride 1,000 mls @ 999 mls/hr 02/12/23 13:45 02/12/23 14:41 Ns IV 02/12/23 14:45 999 mls/hr .Q1H1M NASH Administration Insulin Human Lispro 10 unit 02/12/23 10:02 02/12/23 10:15 Insulin Lispro 100 Unit/Ml 3 Ml Vial SUBCUT 02/12/23 10:03 10 unit ONCE ONE Administration Insulin Human Lispro 15 unit 02/12/23 13:39 02/12/23 14:04 Insulin Lispro 100 Unit/Ml 3 Ml Vial SUBCUT 02/12/23 13:40 15 unit ONCE ONE Administration Lorazepam 1 mg 02/12/23 08:59 02/12/23 10:34 Lorazepam 2 Mg/Ml Vial IVPUSH 02/12/23 09:00 1 mg ONCE ONE Administration Ondansetron HCl 4 mg 02/12/23 08:52 02/12/23 10:34 Ondansetron Hcl 4 Mg/2 Ml Vial IVPUSH 02/12/23 08:53 4 mg ONCE ONE Administration Ondansetron HCl 4 mg 02/12/23 13:51 02/12/23 14:42 Ondansetron Hcl 4 Mg/2 Ml Vial IVPUSH 02/12/23 13:52 4 mg ONCE ONE Administration Medical Decision Making Medical Decision Making [facility] Narrative: 37-year-old female presents with nausea, vomiting abdominal pain. Examination revealed tenderness without rebound or guarding. Differential diagnosis includes gastroenteritis, gastroparesis, DKA, IBD, IBS, pancreatitis. Plan laboratory analysis, IV fluids, antiemetics, consideration for analgesia. Re- evaluate. Deferring imaging at this time as are no focal tender spots to suggest acute cholecystitis, diverticulitis, appendicitis doubt perforation, AAA, dissect, no red flag signs or symptoms. Differential Diagnosis Differential Diagnoses: The differential diagnosis associated with the presentation includes (See above) Admission/Observation Consideration of admission/observation: Escalation of care including admission/observation considered Lab Data [facility] Lab Attestation statement: I reviewed the patient's lab results. 02/12/23 09:55 02/12/23 09:55 Labs: Lab Results 02/12/23 02/12/23 02/12/23 Range/Units 08:58 09:55 09:55 WBC 14.8 H (4.8-10.8) X10*3/uL RBC 4.89 (4.20-5.50) X10*6/uL Hgb 12.6 (12.0-16.0) g/dl Hct 38.6 (37.0-47.0) % MCV 78.9 L (80.0-98.0) fL MCH 25.8 L (27.0-33.0) pg MCHC 32.6 (31.0-35.0) g/dl RDW 14.1 (11.0-16.0) % Plt Count 365 (160-400) X10*3/uL MPV 8.8 L (9.4-12.3) fL Immature Gran % (Auto) 0.6 H (0.0-0.4) % Neut % (Auto) 90.7 H (45-73) % Lymph % (Auto) 6.7 L (20-40) % [place] % (Auto) 1.7 L (2-11) % Eos % (Auto) 0.0 (0-4) % Baso % (Auto) 0.3 (0-2) % Lymph # (Auto) 1.0 L (1.2-4.9) X10*3/uL [place] # (Auto) 0.3 (0.1-1.2) X10*3/uL Eos # (Auto) 0.0 (0.0-0.4) X10*3/uL Baso # (Auto) 0.0 (0.0-0.2) X10*3/uL Abs Immat Gran (auto) 0.09 H (0.00-0.03) X10*3/uL Absolute Neuts (auto) 13.4 H (2.0-8.3) x10*3/uL Absolute Nucleated RBC 0.000 (0.0-0.012) X10*3/uL Nucleated RBC % (auto) 0.0 (0.0-0.2) /100WBC Smear Tech's Comments VERIFIED Sodium (135-145) mmol/L Potassium (3.3-5.1) mmol/L Chloride (96-108) mmol/L Carbon Dioxide (22-29) mmol/L Anion Gap (12-20) BUN (9-16) mg/dL Creatinine (0.5-1.4) mg/dL Estim Creat Clear Calc Estimated GFR POC Glucose 440 H* (60-115) mg/dL Random Glucose (60-115) mg/dL Lactic Acid 1.8 (0.5-2.0) mmol/L Calcium (8.4-10.2) mg/dL Total Bilirubin (0.0-1.0) mg/dL AST (5-31) U/L ALT (0-31) U/L Alkaline Phosphatase (39-117) U/L Total Protein (6.5-8.0) g/dL Albumin (3.5-5.0) g/dL Lipase (8-78) U/L Urine Color Urine Appearance Urine pH (5.0-9.0) Ur Specific [place] (1.005-1.025) Urine Protein (Neg-Trace) mg/dL Urine Glucose (UA) (Negative) mg/dL Urine Ketones (Negative) mg/dL Urine Blood (Negative) Urine Nitrite (Negative) Ur Leukocyte Esterase (Negative) Urine RBC (0-2) /HPF Urine WBC (0-5) /HPF Ur Squamous Epith Cells (0-2) /HPF Urine Bacteria (None Seen) Hyaline Casts (0-2) /LPF Urine Opiates Screen (Not Detect) Urine Fentanyl Screen (Not Detect) Ur Barbiturates Screen (Not Detect) Ur Phencyclidine Scrn (Not Detect) Ur Amphetamines Screen (Not Detect) U Benzodiazepines Scrn (Not Detect) Urine Cocaine Screen (Not Detect) U Marijuana (THC) Screen (Not Detect) Ethyl Alcohol mg/dL Acetone, Qual (Negative) 02/12/23 02/12/23 02/12/23 Range/Units 10:41 10:41 11:39 WBC (4.8-10.8) X10*3/uL RBC (4.20-5.50) X10*6/uL Hgb (12.0-16.0) g/dl Hct (37.0-47.0) % MCV (80.0-98.0) fL MCH (27.0-33.0) pg MCHC (31.0-35.0) g/dl RDW (11.0-16.0) % Plt Count (160-400) X10*3/uL MPV (9.4-12.3) fL Immature Gran % (Auto) (0.0-0.4) % Neut % (Auto) (45-73) % Lymph % (Auto) (20-40) % [place] % (Auto) (2-11) % Eos % (Auto) (0-4) % Baso % (Auto) (0-2) % Lymph # (Auto) (1.2-4.9) X10*3/uL [place] # (Auto) (0.1-1.2) X10*3/uL Eos # (Auto) (0.0-0.4) X10*3/uL Baso # (Auto) (0.0-0.2) X10*3/uL Abs Immat Gran (auto) (0.00-0.03) X10*3/uL Absolute Neuts (auto) (2.0-8.3) x10*3/uL Absolute Nucleated RBC (0.0-0.012) X10*3/uL Nucleated RBC % (auto) (0.0-0.2) /100WBC Smear Tech's Comments Sodium 135 (135-145) mmol/L Potassium 4.3 D (3.3-5.1) mmol/L Chloride 96 (96-108) mmol/L Carbon Dioxide 23 (22-29) mmol/L Anion Gap 20 (12-20) BUN 9 (9-16) mg/dL Creatinine 0.87 (0.5-1.4) mg/dL Estim Creat Clear Calc 124.4 Estimated GFR > 60 POC Glucose (60-115) mg/dL Random Glucose 417 H* (60-115) mg/dL Lactic Acid (0.5-2.0) mmol/L Calcium 9.4 D (8.4-10.2) mg/dL Total Bilirubin 0.7 (0.0-1.0) mg/dL AST 13 (5-31) U/L ALT 14 (0-31) U/L Alkaline Phosphatase 105 (39-117) U/L Total Protein 8.6 H (6.5-8.0) g/dL Albumin 3.9 (3.5-5.0) g/dL Lipase 16 (8-78) U/L Urine Color Yellow Urine Appearance Clear Urine pH 6.5 (5.0-9.0) Ur Specific [place] >= 1.030 H (1.005-1.025) Urine Protein 30 (1+) H (Neg-Trace) mg/dL Urine Glucose (UA) >=1000 H (Negative) mg/dL Urine Ketones 80 (Negative) mg/dL Urine Blood Trace H (Negative) Urine Nitrite Negative (Negative) Ur Leukocyte Esterase Negative (Negative) Urine RBC 11-20 H (0-2) /HPF Urine WBC 6-10 H (0-5) /HPF Ur Squamous Epith Cells 6-10 (0-2) /HPF Urine Bacteria 1+ (None Seen) Hyaline Casts 0-2 (0-2) /LPF Urine Opiates Screen Not Detected (Not Detect) Urine Fentanyl Screen POSITIVE H (Not Detect) Ur Barbiturates Screen Not Detected (Not Detect) Ur Phencyclidine Scrn Not Detected (Not Detect) Ur Amphetamines Screen Not Detected (Not Detect) U Benzodiazepines Scrn Not Detected (Not Detect) Urine Cocaine Screen Not Detected (Not Detect) U Marijuana (THC) Screen POSITIVE H (Not Detect) Ethyl Alcohol < 10 mg/dL Acetone, Qual Negative (Negative) 02/12/23 Range/Units 13:34 WBC (4.8-10.8) X10*3/uL RBC (4.20-5.50) X10*6/uL Hgb (12.0-16.0) g/dl Hct (37.0-47.0) % MCV (80.0-98.0) fL MCH (27.0-33.0) pg MCHC (31.0-35.0) g/dl RDW (11.0-16.0) % Plt Count (160-400) X10*3/uL MPV (9.4-12.3) fL Immature Gran % (Auto) (0.0-0.4) % Neut % (Auto) (45-73) % Lymph % (Auto) (20-40) % [place] % (Auto) (2-11) % Eos % (Auto) (0-4) % Baso % (Auto) (0-2) % Lymph # (Auto) (1.2-4.9) X10*3/uL [place] # (Auto) (0.1-1.2) X10*3/uL Eos # (Auto) (0.0-0.4) X10*3/uL Baso # (Auto) (0.0-0.2) X10*3/uL Abs Immat Gran (auto) (0.00-0.03) X10*3/uL Absolute Neuts (auto) (2.0-8.3) x10*3/uL Absolute Nucleated RBC (0.0-0.012) X10*3/uL Nucleated RBC % (auto) (0.0-0.2) /100WBC Smear Tech's Comments Sodium (135-145) mmol/L Potassium (3.3-5.1) mmol/L Chloride (96-108) mmol/L Carbon Dioxide (22-29) mmol/L Anion Gap (12-20) BUN (9-16) mg/dL Creatinine (0.5-1.4) mg/dL Estim Creat Clear Calc Estimated GFR POC Glucose 384 H* (60-115) mg/dL Random Glucose (60-115) mg/dL Lactic Acid (0.5-2.0) mmol/L Calcium (8.4-10.2) mg/dL Total Bilirubin (0.0-1.0) mg/dL AST (5-31) U/L ALT (0-31) U/L Alkaline Phosphatase (39-117) U/L Total Protein (6.5-8.0) g/dL Albumin (3.5-5.0) g/dL Lipase (8-78) U/L Urine Color Urine Appearance Urine pH (5.0-9.0) Ur Specific [place] (1.005-1.025) Urine Protein (Neg-Trace) mg/dL Urine Glucose (UA) (Negative) mg/dL Urine Ketones (Negative) mg/dL Urine Blood (Negative) Urine Nitrite (Negative) Ur Leukocyte Esterase (Negative) Urine RBC (0-2) /HPF Urine WBC (0-5) /HPF Ur Squamous Epith Cells (0-2) /HPF Urine Bacteria (None Seen) Hyaline Casts (0-2) /LPF Urine Opiates Screen (Not Detect) Urine Fentanyl Screen (Not Detect) Ur Barbiturates Screen (Not Detect) Ur Phencyclidine Scrn (Not Detect) Ur Amphetamines Screen (Not Detect) U Benzodiazepines Scrn (Not Detect) Urine Cocaine Screen (Not Detect) U Marijuana (THC) Screen (Not Detect) Ethyl Alcohol mg/dL Acetone, Qual (Negative) Independent Historian Clinical information obtained from an independent historian. History obtained from or confirmed by: EMS Prescription Management I considered prescription management with: Pain Medication Discharge Plan Discharge Clinical Impression: Opiate abuse, continuous, Intractable nausea and vomiting, Acute hyperglycemia Patient Disposition: Admitted As Inpatient Instructions: Acute Nausea and Vomiting (ED), Diabetic Hyperglycemia (ED), Opioid Use Disorder (ED) Prescriptions: New ondansetron 4 mg tablet,disintegrating 4 mg PO TID PRN (Reason: nausea and vomiting) Qty: 10 0RF metoclopramide HCl [Reglan] 10 mg tablet 10 mg PO Q6H PRN (Reason: nausea and vomiting) Qty: 10 0RF Continued amlodipine [Norvasc] 5 mg tablet 5 mg PO DAILY Qty: 30 0RF insulin lispro 100 unit/mL insulin pen See Protocol subcut USEASDIRECTD Protocol: Insulin Correction Scale Less than or equal to 110 ---- Give (units): 0 111 to 150 Give (units): 0 151 to 200 Give (units): 2 201 to 250 Give (units): 4 251 to 300 Give (units): 6 301 to 350 Give (units): 8 Greater than 350 Give (units): 10 Call MD if Blood Glucose > : 350 Rx Instructions: * Less than or equal to 110 ---- Give (units): 0 * 111 to 150 Give (units): 0 * 151 to 200 Give (units): 2 * 201 to 250 Give (units): 4 * 251 to 300 Give (units): 6 * 301 to 350 Give (units): 8 * Greater than 350 Give (units): 10 * Call MD if Blood Glucose > : 350 No Action methadone 10 mg/mL Concentrate 100 mg PO DAILY ondansetron 4 mg tablet,disintegrating 4 mg PO Q8H Qty: 10 0RF (DME) FreeStyle Lite Strips Strip Qty: 100 0RF Rx Instructions: Test four times a day or as directed.
[2023-02-12 11:02] LABS: Amphetamine Screen Urine Not Detected (Not Detect); Barbiturates, Urine Not Detected (Not Detect); Benzodiazepines Screen Urine Not Detected (Not Detect); Cannabinoid Screen Urine POSITIVE (Not Detect); Cocaine Screen Urine Not Detected (Not Detect); Fentanyl, urine POSITIVE (Not Detect); Opiate Screen Urine Not Detected (Not Detect); Phencyclidine Screen Urine Not Detected (Not Detect)
--- NOTE | 2023-02-12 11:18 | PC.NURSE ---
pt AOx4, comes into ER with N/V x1-2 days. Pt is IV drug user and used heroin this morning. pt very hard stick, IV obtained via ultrasound. Labs drawn, recollect still needed. IV fluids infusing per MAR, window dresser on, will CTM
[2023-02-12 12:00] VITALS: BP 157/100; PULSE 92; RESP 13; O2SAT 94
[2023-02-12 12:19] LABS: Alanine Aminotransferase 14 U/L (0-31); Albumin Level 3.9 g/dL (3.5-5.0); Alkaline Phosphatase 105 U/L (39-117); Anion Gap 20 (12-20); Aspartate Amino Transferase 13 U/L (5-31); Bilirubin Total 0.7 mg/dL (0.0-1.0); Blood Urea Nitrogen 9 mg/dL (9-16); Calcium 9.4 mg/dL (8.4-10.2); Carbon Dioxide 23 mmol/L (22-29); Chloride 96 mmol/L (96-108); Creatinine Clr Calc Pharmacy 124.4; Estimated Glomerular Filt Rate > 60; Ethanol < 10 mg/dL; Glucose Random 417 mg/dL (60-115); Lipase 16 U/L (8-78); Potassium 4.3 mmol/L (3.3-5.1); Sodium 135 mmol/L (135-145); Total Protein 8.6 g/dL (6.5-8.0)
[2023-02-12 12:33] LABS: Acetone, serum QL Negative (Negative)
--- NOTE | 2023-02-12 13:35 | PC.NURSE ---
pt resting comfortably, reports feeling much better. recheck POC 384
[2023-02-12 13:37] LABS: Glucose, Whole Blood 384 mg/dL (60-115)
[2023-02-12] MEDS: Insulin Lispro 100 UNIT/ML 3 ML VIAL 15 UNIT SUBCUT (14:04)
--- NOTE | 2023-02-12 16:21 | PC.NURSE ---
pt continues to be nauseous and vomit. medicated per MAR
[2023-02-12 16:29] VITALS: BP 167/92; PULSE 83; RESP 16; TEMP 37; O2SAT 97
[2023-02-12 16:29] LABS: Glucose, Whole Blood 288 mg/dL (60-115)
--- NOTE | 2023-02-12 16:45 | P.HPHOSP_ITS ---
History of Present Illness Date of Service: 02/12/23 Attending physician on admission: [facility] Chief Complaint: intractable n/v 37 year old female with history of insulin-dependent type 2 diabetes, PCOS, continuous opiate abuse on methadone last IV heroin use this morning following with [facility] presented to the ED earlier today for evaluation of intractable nausea and vomiting ongoing since yesterday morning. She states has not been able to tolerate food or liquids. No abd pain, fevers, chills, ingestion of bad foods, diarrhea. States she is an everyday MJ smoker and has had similar symptoms three times in the past. No known sick contacts or travel. Also noting hyperglycemia. States she has run out of her insulin. On arrival, VSS. Mild leukocytosis of 14.5, likely reactive. No anemia. Renal function normal, electrolyte levels normal. Anion gap closed. Glucose on arr ival 417, improved with 2 L IV NS, a total of 25 units Humalog. Most recent POC 288. UA did show positive ketones with significant glucosuria, 1+ protein, elevated specific gravity, negative leukocytes, negative nitrites, positive urinary sediment, 1+ bacteria. She patient denies any urinary symptoms. Urine culture pending. In the ED, has been treated with 20 mg IV famotidine, ondansetron, and Phenergan. Also given 1 mg Ativan. Review of Systems Review of Systems: General: No fevers, malaise, unintentional weight loss HEENT: No blurred vision, diplopia. No sore throat, nasal congestion, rhin orrhea, sinus pain, ear pain Cardiovascular: No chest pain, palpitations, or leg edema Respiratory: No shortness of breath, wheezing, cough GI: +n/v. No abdominal pain, diarrhea, constipation, melena, hematochezia : No dysuria, hematuria, increased urinary frequency, decreased urinary output Endo: +hyperglycemia MSK: No myalgia, back pain Neuro: No headaches, weakness, paresthesias Skin: No rashes or lesions [facility] Medical History Anxiety and depression Diabetes Methadone maintenance therapy patient PCOS (polycystic ovarian syndrome) Polysubstance (excluding opioids) dependence, daily use Rash Social History Household Members: Family Household Members Other:: her aki Housing: House Do you presently have visiting nurse or other home services: No Alcohol intake: current Alcohol intake frequency: does not drink Patient Tobacco Use Status: Former Tobacco user Quit Date: 09/03/2017 Tobacco use type: Cigarette Cigarette Packs Per Day: 3 Cigarettes Per Day: 60.0 Years Smoked: 2 e-Cigarette/Vaping Use: Never Used Use of substances other than those prescribed or required for medical reasons: Yes Substance Use Type: Heroin Advance Directives: Yes Advance Directives on File: Yes Advance Directives Date on File: 01/11/22 service: No Current occupational status: unemployed Meds Allergies Allergy/AdvReac Type Severity Reaction Status Date / Time No Known Allergies Allergy Verified 01/03/23 13:47 Active Medications: Current Medications Acetaminophen (Acetaminophen 325 Mg Tablet) 650 mg PO Q6H PRN PRN Reason: Pain, Mild (Pain Scale 1-3) Docusate Sodium (Docusate Sodium 100 Mg Capsule) 100 mg PO DAILY PRN PRN Reason: Constipation Sodium Chloride (Ns) 1,000 mls @ 100 mls/hr IVCONT .Q10H NASH Ondansetron HCl (Ondansetron Hcl 4 Mg/2 Ml Vial) 4 mg IVPUSH Q8H PRN PRN Reason: Nausea and Vomiting Pharmacy Consult (Consult Rx Perform Med Rec) 1 each MISCELLANE ONCE PRN PRN Reason: Consult order Pharmacy Consult (Consult Rx Perform Med Rec) 1 each MISCELLANE ONCE PRN PRN Reason: Consult order Sodium Chloride (0.9 % Sodium Chloride Flush 3 Ml Syringe) 3 ml IVFLUSH QSHIFT [facility] Home Medications Medication Instructions Recorded Confirmed Last Taken Type methadone 10 mg/mL oral concentrate 100 mg PO DAILY 01/10/22 01/04/23 12/31/22 History insulin lispro 100 unit/mL See Protocol subcut USEASDIRECTD 01/03/23 02/12/23 Unknown History subcutaneous pen Physical Exam Vital Signs and Narrative: Vital Signs: Last Vital Signs Temp 98.6 F 02/12/23 16:29 Pulse 83 02/12/23 16:29 Resp 16 02/12/23 16:29 BP 167/92 H 02/12/23 16:29 Pulse Ox 97 02/12/23 16:29 O2 Del Method Room Air 02/12/23 16:29 BMI result Body Mass Index 41.8 Constitutional - Awake and Alert, unwell appearing, pallor Eyes - PERRLA, EOMI Cardiovascular - S1S2, RRR, No edema Respiratory - Normal lung expansion, Normal respiratory effort, No respiratory distress, CTA bilaterally Gastrointestinal - NT / ND; +BS; No rebound or guarding Extremities - no calf tenderness bilaterally, no swelling Skin - Warm/Dry Neurological - Alert & oriented x3 Psychological - Appropriate affect Results Labs 02/12/23 09:55 02/12/23 11:39 Labs: Laboratory Results - last 24 hr 02/12/23 02/12/23 02/12/23 08:58 09:55 09:55 MCV 78.9 L MCH 25.8 L MCHC 32.6 RDW 14.1 Plt Count 365 MPV 8.8 L Immature Gran % (Auto) 0.6 H Neut % (Auto) 90.7 H Lymph % (Auto) 6.7 L Z[place]ata % (Auto) 1.7 L Eos % (Auto) 0.0 Baso % (Auto) 0.3 Lymph # (Auto) 1.0 L [place] # (Auto) 0.3 Eos # (Auto) 0.0 Baso # (Auto) 0.0 Abs Immat Gran (auto) 0.09 H Absolute Neuts (auto) 13.4 H Absolute Nucleated RBC 0.000 Nucleated RBC % (auto) 0.0 Smear Tech's Comments VERIFIED Anion Gap Estim Creat Clear Calc Estimated GFR POC Glucose 440 H* Random Glucose Lactic Acid 1.8 Calcium Total Bilirubin AST ALT Alkaline Phosphatase Total Protein Albumin Lipase Urine Color Urine Appearance Urine pH Ur Specific Maiden Urine Protein Urine Glucose (UA) Urine Ketones Urine Blood Urine Nitrite Ur Leukocyte Esterase Urine RBC Urine WBC Ur Squamous Epith Cells Urine Bacteria Hyaline Casts Urine Opiates Screen Urine Fentanyl Screen Ur Barbiturates Screen Ur Phencyclidine Scrn Ur Amphetamines Screen U Benzodiazepines Scrn Urine Cocaine Screen U Marijuana (THC) Screen Ethyl Alcohol Acetone, Qual 02/12/23 02/12/23 02/12/23 10:41 10:41 11:39 MCV MCH MCHC RDW Plt Count MPV Immature Gran % (Auto) Neut % (Auto) Lymph % (Auto) Zapata % (Auto) Eos % (Auto) Baso % (Auto) Lymph # (Auto) [place]apata # (Auto) Eos # (Auto) Baso # (Auto) Abs Immat Gran (auto) Absolute Neuts (auto) Absolute Nucleated RBC Nucleated RBC % (auto) Smear Tech's Comments Anion Gap 20 Estim Creat Clear Calc 124.4 Estimated GFR > 60 POC Glucose Random Glucose 417 H* Lactic Acid Calcium 9.4 D Total Bilirubin 0.7 AST 13 ALT 14 Alkaline Phosphatase 105 Total Protein 8.6 H Albumin 3.9 Lipase 16 Urine Color Yellow Urine Appearance Clear Urine pH 6.5 Ur Specific Maiden >= 1.030 H Urine Protein 30 (1+) H Urine Glucose (UA) >=1000 H Urine Ketones 80 Urine Blood Trace H Urine Nitrite Negative Ur Leukocyte Esterase Negative Urine RBC 11-20 H Urine WBC 6-10 H Ur Squamous Epith Cells 6-10 Urine Bacteria 1+ Hyaline Casts 0-2 Urine Opiates Screen Not Detected Urine Fentanyl Screen POSITIVE H Ur Barbiturates Screen Not Detected Ur Phencyclidine Scrn Not Detected Ur Amphetamines Screen Not Detected U Benzodiazepines Scrn Not Detected Urine Cocaine Screen Not Detected U Marijuana (THC) Screen POSITIVE H Ethyl Alcohol < 10 Acetone, Qual Negative 02/12/23 02/12/23 13:34 16:25 MCV MCH MCHC RDW Plt Count MPV Immature Gran % (Auto) Neut % (Auto) Lymph % (Auto) Zapata % (Auto) Eos % (Auto) Baso % (Auto) Lymph # (Auto) Zapata # (Auto) Eos # (Auto) Baso # (Auto) Abs Immat Gran (auto) Absolute Neuts (auto) Absolute Nucleated RBC Nucleated RBC % (auto) Smear Tech's Comments Anion Gap Estim Creat Clear Calc Estimated GFR POC Glucose 384 H* 288 H Random Glucose Lactic Acid Calcium Total Bilirubin AST ALT Alkaline Phosphatase Total Protein Albumin Lipase Urine Color Urine Appearance Urine pH Ur Specific Maiden Urine Protein Urine Glucose (UA) Urine Ketones Urine Blood Urine Nitrite Ur Leukocyte Esterase Urine RBC Urine WBC Ur Squamous Epith Cells Urine Bacteria Hyaline Casts Urine Opiates Screen Urine Fentanyl Screen Ur Barbiturates Screen Ur Phencyclidine Scrn Ur Amphetamines Screen U Benzodiazepines Scrn Urine Cocaine Screen U Marijuana (THC) Screen Ethyl Alcohol Acetone, Qual Assessment and Plan (1) Cyclic vomiting syndrome: Status: Acute Plan 37 year old female with history of insulin-dependent type 2 diabetes, PCOS, continuous opiate abuse on methadone last IV heroin use this morning following with [facility] to be observed for intractable nausea and vomiting. #Cyclic vomiting syndrome- suspect cannabis induced -Reactive leukocytosis 14.5. Renal function and lytes normal -Keep NPO for now, advance diet as tolerated -IV famotidine 20mg BID. Ondansetron prn -Continue IVF #Acute hyperglycemia in insulin dependent type 2 diabetes -due to medication noncompliance- ran out of insulin -On arrival glucose 417, treated with 25 units humalog, now 288 -AG close, lytes normal, ketones likely r/t dehydration. Low suspicion for DKA -Continue sliding scale humalog -POC glucose -Advance to diabetic diet #Opioid dependence with ongoing use -Last IV heroin this am. Declines addiction med consult. Will continue following with [facility] -Continue methadone DVT prophaylxis- SCPs Full code Time Spent With Patient Time: Total time managing care of this patient today ____ minutes. Quality Stroke Does the patient have a stroke diagnosis?: No VTE Prior VTE?: No VTE Risk Level:: Medical - moderate - high VTE Device Contraindication: Treatment Not Indicated VTE Drug Contraindication: N/A - Med Ordered
[2023-02-12] MEDS: 0.9 % Sodium Chloride 1,000 ML 100 ML IVCONT (17:03)
[2023-02-12 18:31] VITALS: BMI 41.7
[2023-02-12 18:32] VITALS: BP 198/70; PULSE 83; RESP 20; TEMP 36.6
[2023-02-12 19:53] LABS: Glucose, Whole Blood 272 mg/dL (60-115)
[2023-02-12] MEDS: Insulin Lispro 100 UNIT/ML 3 ML VIAL SUBCUT (20:04)
[2023-02-13] VITALS (7 sets, daily range): BP systolic 140–181; BP diastolic 68–94; PULSE 75–85; RESP 18–20; TEMP 36.3–37.2; O2SAT 94–98
[2023-02-13] MEDS: 0.9 % Sodium Chloride 1,000 ML 100 ML IVCONT (03:20)
[2023-02-13 06:16] LABS: MANUAL DIFF FLAG NO
[2023-02-13 06:31] LABS: Basophils Absolute Auto 0.1 X10*3/uL (0.0-0.2); Basophils Percent Auto 0.4 % (0-2); Eosinophils Percent Auto 0.3 % (0-4); Hematocrit 34.2 % (37.0-47.0); Hemoglobin 11.2 g/dl (12.0-16.0); Imm Gran Abs Auto 0.15 X10*3/uL (0.00-0.03); Imm Gran Pct Auto 1.3 % (0.0-0.4); Lymphocytes Absolute Auto 2.6 X10*3/uL (1.2-4.9); Lymphocytes Percent Auto 22.4 % (20-40); Mean Corpuscular HGB Conc 32.7 g/dl (31.0-35.0); Mean Corpuscular Hemoglobin 26.5 pg (27.0-33.0); Mean Corpuscular Volume 80.9 fL (80.0-98.0); Mean Platelet Volume 9.1 fL (9.4-12.3); Monocytes Absolute Auto 0.8 X10*3/uL (0.1-1.2); Monocytes Percent Auto 6.5 % (2-11); Neutrophils Percent Auto 69.1 % (45-73); Platelet Count 346 X10*3/uL (160-400); Red Blood Count 4.23 X10*6/uL (4.20-5.50); Red Cell Distribution Width 14.5 % (11.0-16.0); White Blood Count 11.5 X10*3/uL (4.8-10.8)
[2023-02-13 06:45] LABS: Anion Gap 12 (12-20); Blood Urea Nitrogen 10 mg/dL (9-16); Calcium 8.5 mg/dL (8.4-10.2); Carbon Dioxide 25 mmol/L (22-29); Chloride 101 mmol/L (96-108); Creatinine Clr Calc Pharmacy 135.2; Estimated Glomerular Filt Rate > 60; Glucose Random 351 mg/dL (60-115); Potassium 4.1 mmol/L (3.3-5.1); Sodium 134 mmol/L (135-145)
[2023-02-13 07:17] LABS: Glucose, Whole Blood 333 mg/dL (60-115)
[2023-02-13] MEDS: Famotidine/PF 20 MG/2 ML VIAL IVPUSH ×2 (08:08→21:10)
[2023-02-13] MEDS: Insulin Lispro 100 UNIT/ML 3 ML VIAL SUBCUT ×4 (08:08→21:10)
[2023-02-13] MEDS: 0.9 % Sodium Chloride Flush 3 ML SYRINGE IVFLUSH ×3 (08:08→19:38)
[2023-02-13] MEDS: amLODIPine Besylate 5 MG TABLET PO (08:09)
--- NOTE | 2023-02-13 10:52 | MHC.CM.PN ---
KEARNEY 02/13/23, EMR REVIEWED, PT ADMITTED W/INTRACTABLE N/V/HYPERGLYCEMIA, CM MET W/PT AT BEDSIDE, PT REPORTS SHE LIVES W/HER DTR, PT INDEP W/ALL CARE, HAS DIABETIC SUPPLIES FOR DME, NO HOME SERVICES AND [facility]. PT DOES REPORT SHE MAY NEED TRANSPORT HOME AND WOULD BE ABLE TO TAKE [facility] SHUTTLE. PT VERIFIES MODERNA X2, DENIES HAVING A PCP AND REPORTS SHE DOES NOT HAVE A PCP D/T CHANGING HER INSURANCE PLAN TO GET INTO A SPECIFIC DETOX AND REPORTS SHE IS ON WAITLIST. HCP ON FILE AND VERIFIED. ANTIC D/C HOME NO NEW SERVICES W/ PT ARRANGED VS [facility] SHUTTLE
[2023-02-13 11:22] LABS: Glucose, Whole Blood 271 mg/dL (60-115)
--- NOTE | 2023-02-13 14:08 | P.PNIM_ITS ---
Subjective Subjective Date of Service: 02/13/23 Interval History: intractable nausea/vomitin Review of Systems still feels nauseated , says vomitin?night no fevers or chills says tryng to stop marijuana and stop heroine . Physical Exam Vital Signs: Vital Signs: Last Vital Signs Temp 98.7 F 02/13/23 11:02 Pulse 75 02/13/23 11:02 Resp 20 02/13/23 11:02 BP 146/81 H 02/13/23 11:02 Pulse Ox 94 02/13/23 11:02 O2 Del Method Room Air 02/13/23 11:02 BMI result Body Mass Index 41.7 Appearance: Alert.? Oriented X3.?feels nauseated cvs: rrr, [id number] . res: clear to auscultation ,no rhonchii or wheezing abd: no rebound or guarding ,nt, bs present. ext pulses present , no cyanosis. neuro: axo3 , nonfocal. Objective Data Active Medications Acetaminophen (Acetaminophen 325 Mg Tablet) 650 mg PO Q6H PRN PRN Reason: Pain, Mild (Pain Scale 1-3) Amlodipine Besylate (Amlodipine Besylate 5 Mg Tablet) 5 mg PO DAILY [facility]; Protocol Last Admin: 02/13/23 08:09 Dose: 5 mg Documented By: CHRISTIANO Docusate Sodium (Docusate Sodium 100 Mg Capsule) 100 mg PO DAILY PRN PRN Reason: Constipation Famotidine (Famotidine/Pf 20 Mg/2 Ml Vial) 20 mg IVPUSH BID [facility] Last Admin: 02/13/23 08:08 Dose: 20 mg Documented By: CHRISTIANO Insulin Human Lispro (Insulin Lispro 100 Unit/Ml 3 Ml Vial) 0 unit SUBCUT QIDACHS [facility]; Protocol Last Admin: 02/13/23 11:38 Dose: 6 unit Documented By: CHRISTIANO Ondansetron HCl (Ondansetron Hcl 4 Mg/2 Ml Vial) 4 mg IVPUSH Q8H PRN PRN Reason: Nausea and Vomiting Pharmacy Consult (Consult Rx Perform Med Rec) 1 each MISCELLANE ONCE PRN PRN Reason: Consult order Pharmacy Consult (Consult Rx Perform Med Rec) 1 each MISCELLANE ONCE PRN PRN Reason: Consult order Sodium Chloride (0.9 % Sodium Chloride Flush 3 Ml Syringe) 3 ml IVFLUSH QSHIFT [facility] Last Admin: 02/13/23 08:08 Dose: 3 ml Documented By: CHRISTIANO Labs 02/13/23 06:04 02/13/23 06:04 Labs: Laboratory Results - last 24 hr 02/12/23 02/12/23 02/13/23 16:25 19:50 06:04 MCV 80.9 MCH 26.5 L MCHC 32.7 RDW 14.5 Plt Count 346 MPV 9.1 L Immature Gran % (Auto) 1.3 H Neut % (Auto) 69.1 Lymph % (Auto) 22.4 Blanco % (Auto) 6.5 Eos % (Auto) 0.3 Baso % (Auto) 0.4 Lymph # (Auto) 2.6 Bl[place] # (Auto) 0.8 Eos # (Auto) 0.0 Baso # (Auto) 0.1 Abs Immat Gran (auto) 0.15 H Absolute Neuts (auto) 8.0 Absolute Nucleated RBC 0.000 Nucleated RBC % (auto) 0.0 Anion Gap Estim Creat Clear Calc Estimated GFR POC Glucose 288 H 272 H Random Glucose Calcium 02/13/23 02/13/23 02/13/23 06:04 07:09 11:02 MCV MCH MCHC RDW Plt Count MPV Immature Gran % (Auto) Neut % (Auto) Lymph % (Auto) Blanco % (Auto) Eos % (Auto) Baso % (Auto) Lymph # (Auto) [place] # (Auto) Eos # (Auto) Baso # (Auto) Abs Immat Gran (auto) Absolute Neuts (auto) Absolute Nucleated RBC Nucleated RBC % (auto) Anion Gap 12 Estim Creat Clear Calc 135.2 Estimated GFR > 60 POC Glucose 333 H 271 H Random Glucose 351 H* Calcium 8.5 D Microbiology Microbiology Results: Microbiology 02/12/23 Unknown Urine Culture - Final Urine clean catch - Urine lynn top Assessment and Plan (1) Intractable nausea and vomiting: Status: Acute Plan 37-year-old female with past medical history of IV drug use, diabetes, hypertension presents to the hospital with intractable nausea vomiting intractable nausea vomiting- has history of hyperemesis cannabinoid syndrome, does use marijuana, but also has evidence of possible gallbladder distension and sludge - abdominal CT and ultrasound as above,hida scan negative - who will treat with antiemetics, IV fluids ,try clears if tolerates diet -will dc ivf ,try advance diet General surgery: ?abdomen is completely benign and nontender. Leukocytosis is likely reactive from vomiting, less likely cholecytsitis ,observe off antibiotics, blood culture [id number]. diabetes with hyperglycemia pseudohyponatremia due to hyperglycemia fs with adjutsed coverage diabetic diet hypertension uncontrolled adjusted amlodipine. IV drug use - no evidence of skin infection( ch arm changes -d/w ID) - continue methadone refused addiction eval. morbid obesity: Encouraged to lose weight. DVT prophylaxis:? Lovenox. inapatient need: Intractable nausea vomiting: Multifactorial, need IV antiemetic, hydration Time Spent With Patient Time: Total time managing care of this patient today ____ minutes. Quality Stroke Does the patient have a stroke diagnosis?: No VTE Prior VTE?: No VTE Risk Level:: Medical - moderate - high VTE Device Contraindication: Treatment Not Indicated VTE Drug Contraindication: N/A - Med Ordered
[2023-02-13 15:15] LABS: Glucose, Whole Blood 316 mg/dL (60-115)
[2023-02-13] MEDS: amLODIPine Besylate 2.5 MG TABLET PO (16:24)
[2023-02-13] MEDS: ondansetron HCL 4 MG/2 ML VIAL IVPUSH (19:12)
[2023-02-13] MEDS: methADONE HCl 20 MG/2 ML ORAL.CONC 100 MG PO (19:35)
[2023-02-13 20:26] LABS: Glucose, Whole Blood 243 mg/dL (60-115)
[2023-02-14] MEDS: ondansetron HCL 4 MG/2 ML VIAL IVPUSH ×3 (03:11→11:33)
[2023-02-14 03:42] VITALS: BP 164/74; PULSE 80; RESP 20; TEMP 36.9; O2SAT 95
[2023-02-14 07:22] VITALS: BP 166/87; PULSE 90; RESP 20; TEMP 36.7; O2SAT 97
[2023-02-14 07:23] LABS: Glucose, Whole Blood 307 mg/dL (60-115)
[2023-02-14] MEDS: Famotidine/PF 20 MG/2 ML VIAL IVPUSH (07:42)
[2023-02-14] MEDS: amLODIPine Besylate 5 MG TABLET PO (07:42)
[2023-02-14] MEDS: methADONE HCl 20 MG/2 ML ORAL.CONC 100 MG PO (07:42)
[2023-02-14] MEDS: Insulin Lispro 100 UNIT/ML 3 ML VIAL SUBCUT ×2 (07:43→11:33)
[2023-02-14] MEDS: 0.9 % Sodium Chloride Flush 3 ML SYRINGE IVFLUSH (07:44)
[2023-02-14 11:29] VITALS: BP 137/87; PULSE 91; RESP 18; TEMP 36.6; O2SAT 98
[2023-02-14 11:34] LABS: Glucose, Whole Blood 306 mg/dL (60-115)
--- NOTE | 2023-02-14 12:33 | P.DS_ITS ---
DS: Providers Provider Date of Service: 02/14/23 Date of admission: 02/12/23 16:37 Date of discharge: 02/14/23 Primary care physician: Unknown Physician Attending physician on discharge: Hieu Hickey Discharging clinician: Hieu Hickey DS: Diagnosis Discharge Diagnosis (1) Intractable nausea and vomiting: Status: Acute DS: Summary Hospital Course Hospital Course: 37 year old female with history of insulin-dependent type 2 diabetes, PCOS, continuous opiate abuse on methadone last IV heroin use this morning following with [facility] presented to the ED earlier today for evaluation of intractable nausea and vomiting ongoing since yesterday morning. She states has not been able to tolerate food or liquids. No abd pain, fevers, chills, ingestion of bad foods, diarrhea. States she is an everyday MJ smoker and has had similar symptoms three times in the past. No known sick contacts or travel. Also noting hyperglycemia. States she has run out of her insulin. On arrival, VSS.? Mild leukocytosis of 14.5, likely reactive.? No anemia.? Renal function normal, electrolyte levels normal.? Anion gap closed.? Glucose on arrival 417, improved with 2 L IV NS, a total of 25 units Humalog.? Most recent POC 288.? UA did show positive ketones with significant glucosuria, 1+ protein, elevated specific gravity, negative leukocytes, negative nitrites, positive urinary sediment, 1+ bacteria.? She patient denies any urinary symptoms.? Urine culture pending.? In the ED, has been treated with 20 mg IV famotidine, ondansetron, and Phenergan.? Also given 1 mg Ativan. Hospital course: Patient was admitted because of cyclic vomiting secondary to marijuana use- patient was given bowel rest, IV fluid, antiemetics, pain management- subsequently patient seems to be improved, tolerating diet. Patient was strongly advised to abstain from marijuana and opioid use. Hypertension: Amlodipine adjusted to 7.5 mg daily. plan: Patient was strongly advised abstain from marijuana to avoid further episode of vomiting Also amlodipine adjusted to 7.5 mg daily. Above management discussed with the patient detail and she understand and in agreement with above plan, time spent 50 min. Time Spent with Patient Time attestation: Total time managing care of this patient today ____ minutes. Discharge coordination time: Greater than 30 minutes Quality: Safe Use of Opioids Does Pt have an Active Cancer Diagnosis on the Problem List?: No Quality: Stroke Does the patient have a stroke diagnosis?: No Physical Exam Vital Signs: Vital Signs: Last Vital Signs Temp 97.9 F 02/14/23 11:29 Pulse 91 02/14/23 11:29 Resp 18 02/14/23 11:29 BP 137/87 02/14/23 11:29 Pulse Ox 98 02/14/23 11:29 O2 Del Method Room Air 02/14/23 11:29 BMI result Body Mass Index 41.7 Appearance: Alert.? Oriented X3.?feels nauseated cvs: rrr, [id number] . res: clear to auscultation ,no rhonchii or wheezing abd: no rebound or guarding ,nt, bs present. ext pulses present , no cyanosis. neuro: axo3 , nonfocal. DS: Data Data Completed and Pending Labs on day of discharge: Laboratory Results - last 24 hr 02/13/23 02/13/23 02/14/23 15:09 20:02 07:19 POC Glucose 316 H 243 H 307 H 02/14/23 11:28 POC Glucose 306 H Discharge Plan Discharge Anticipated Discharge Date/Time: 02/14/23 09:56 Patient Disposition: Home, Self-Care Discharge Diagnosis: Cyclic vomiting syndrome, uncontrolled hypertension. Referrals: Physician,Unknown J [Primary Care Provider] - 1 Week Discharge Medications: New ondansetron 4 mg tablet,disintegrating 4 mg PO TID PRN (Reason: nausea and vomiting) Qty: 10 0RF metoclopramide HCl [Reglan] 10 mg tablet 10 mg PO Q6H PRN (Reason: nausea and vomiting) Qty: 10 0RF Continued methadone 10 mg/mL Concentrate 100 mg PO DAILY ondansetron 4 mg tablet,disintegrating 4 mg PO Q8H Qty: 10 0RF (DME) FreeStyle Lite Strips Strip Qty: 100 0RF Rx Instructions: Test four times a day or as directed. insulin lispro 100 unit/mL insulin pen See Protocol subcut USEASDIRECTD Qty: 10 0RF Protocol: Insulin Correction Scale Less than or equal to 110 ---- Give (units): 0 111 to 150 Give (units): 0 151 to 200 Give (units): 2 201 to 250 Give (units): 4 251 to 300 Give (units): 6 301 to 350 Give (units): 8 Greater than 350 Give (units): 10 Call MD if Blood Glucose > : 350 Rx Instructions: * Less than or equal to 110 ---- Give (units): 0 * 111 to 150 Give (units): 0 * 151 to 200 Give (units): 2 * 201 to 250 Give (units): 4 * 251 to 300 Give (units): 6 * 301 to 350 Give (units): 8 * Greater than 350 Give (units): 10 * Call MD if Blood Glucose > : 350 Changed amlodipine 5 mg tablet 7.5 mg PO DAILY Qty: 30 0RF Discharge Orders: Discharge Order (Routine); Ordered 02/14/23 Ordered By: Hieu Hickey Diet: Advance to usual diet Activity on Discharge: As tolerated Stand Alone Forms: Patient Portal Discharge page Care Plan Goals: Patient was admitted because of cyclic vomiting secondary to marijuana use- patient was given bowel rest, IV fluid, antiemetics, pain management- subsequently patient seems to be improved, tolerating diet. Patient was strongly advised to abstain from marijuana and opioid use. Hypertension: Amlodipine adjusted to 7.5 mg daily. Health Concerns: As above. Plan of Treatment: As above. Assessment: As above. Patient Instructions: Acute Nausea and Vomiting (ED), Diabetic Hyperglycemia (ED), Opioid Use Disorder (ED)
--- NOTE | 2023-02-14 12:46 | MHC.CM.PN ---
PT MEDICALLY CLEARED FOR D/C HOME SELF-CARE, PT INSTRUCTED TO CONTACT HER INSURANCE FOR LIST OF PROVIDERS [facility] AND C DO NOT TAKE HER [facility] PLAN, PT WILL ATTEMPT TO GET TRANSPORT HOME, IF UNABLE TO PT [place] [facility] [place].
== END 2023-02-14 13:20 | disposition home or self-care (01) ==
LOC: HO.ED 15:49 → HO.EDOVER 16:46 → HO.IMC 17:29
PROVIDERS: Internal Medicine; Admitting Provider Physician Assistant; Emergency Provider Emergency Medicine; Visit Provider Internal Medicine
DX: R11.15 Cyclical vomiting syndrome unrelated to migraine (principal); I10 Essential (primary) hypertension; E11.9 Type 2 diabetes mellitus without complications; R10.9 Unspecified abdominal pain; F11.10 Opioid abuse, uncomplicated; E11.65 Type 2 diabetes mellitus with hyperglycemia; Z79.4 Long term (current) use of insulin
CPT/HCPCS: 36415; 80048; 80053; 80307; 81001; 82009; 82947; 83605; 83690; 85025; 87086; 96361; 96365; 96372; 96375; 96376; 99222; 99285; J2060; J2405; J2550

== ENCOUNTER 2023-11-23 13:31 | Inpatient (IN) | payer OTHER, SELFPAY ==
--- NOTE | ~2023-11-23 | US_ITS ---
EXAMINATION: US ABDOMEN LIMITED CLINICAL INFORMATION: Gallbladder sludge, nausea/vomiting. COMPARISON: Ultrasound abdomen limited and CT abdomen and pelvis 01/03/2023. TECHNIQUE: Real-time imaging of the right upper quadrant abdominal viscera. FINDINGS: PANCREAS: Normal. LIVER: Again noted is hepatomegaly and diffuse hyperechogenicity of the parenchyma, consistent with steatosis. No evidence of focal liver lesion or intrahepatic ductal dilatation. Color Doppler images show normal flow direction within the main portal vein. GALLBLADDER: The gallbladder is moderately distended. It has a hydropic appearance on prior imaging exams from 01/03/2023. Again noted are small echogenic foci and moderate amount of sludge in the lumen of the gallbladder. No gallbladder wall edema or pericholecystic fluid. COMMON BILE DUCT: Common bile duct measures up to 0.7 - 0.8 cm AP diameter. It measured up to 0.6 cm on 01/03/2023 RIGHT KIDNEY: Normal. No hydronephrosis. No renal calculi or focal parenchymal lesions. The kidney measures 10.3 cm in maximum dimension. FREE FLUID: None. US/US abdomen limited IMPRESSION: * Mild hepatomegaly and diffuse hepatic steatosis. * Although the gallbladder is abnormal, it remains similar in appearance compared to 01/03/2023. There are very small echogenic stones as well as moderate amount of sludge in the lumen of the hydropic gallbladder. No interval development of gallbladder wall edema or pericholecystic fluid. No sonographic evidence of acute cholecystitis. * Common bile duct is mildly dilated. If the patient has hyperbilirubinemia, then consider further assessment of the common duct with MRCP.
[2023-11-23 13:34] VITALS: BP 180/100; PULSE 92; O2SAT 98
[2023-11-23 13:46] VITALS: BP 169/95; PULSE 77; RESP 17; TEMP 37.2; O2SAT 95; BMI 41.0
--- NOTE | 2023-11-23 14:12 | ED_ITS ---
HPI - General Adult General Chief complaint: General Medical Stated complaint: N/V/WEAKNESS/NEEDS MEDS PER EMS Time Seen by Provider: 11/23/23 13:44 Source: patient Mode of arrival: ambulatory Limitations: no limitations History of Present Illness HPI narrative: Patient comes to emergency room complaining of nausea and vomiting for 2 days. Patient admits that she has been using marijuana and heroin. Patient also states that she ran out of her diabetic and blood pressure medications in August of 2023 and currently does not have a PCP. Patient states that she has abdominal pain but it is mostly muscular due to vomiting so much. Patient denies chest pain or shortness of breath, no URI or UTI symptoms. Related Data Home Medications Medication Instructions Recorded Confirmed methadone 10 mg/mL oral concentrate 100 mg PO DAILY 01/10/22 02/13/23 Previous Rx's Medication Instructions Recorded ondansetron 4 mg disintegrating 4 mg PO Q8H #10 tabs 01/06/23 tablet metoclopramide HCl 10 mg tablet 10 mg PO Q6H PRN nausea and 02/12/23 (Reglan) vomiting #10 tabs ondansetron 4 mg disintegrating 4 mg PO TID PRN nausea and 02/12/23 tablet vomiting #10 tabs amlodipine 5 mg tablet 7.5 mg (1.5 x 5 mg) PO DAILY #30 02/14/23 tabs blood sugar diagnostic (FreeStyle #100 ea 02/14/23 Lite Strips) insulin lispro 100 unit/mL See Protocol subcut USEASDIRECTD 02/14/23 subcutaneous pen #10 mL Allergies Allergy/AdvReac Type Severity Reaction Status Date / Time No Known Allergies Allergy Verified 01/03/23 13:47 Review of Systems 2 Review of Systems: Constitutional : No Weight loss, No Fever, No Chills, No Night Sweats, No Fatigue, No Malaise ENT/Mouth : No Hearing loss, No Ear Pain, No Nasal Congestion, No Sinus Pain, No Hoarseness, No sore throat, No Rhinorrhea, No Swallowing Difficulty Eyes: No Eye Pain, No Swelling, No Redness, No Foreign Body, No Discharge, No Vision Changes Cardiovascular : No Chest Pain, No SOB, No Dyspnea on Exertion, No Orthopnea, No Edema, No Palpitations Respiratory : No Cough, No Sputum, No Wheezing, No Smoke Exposure, No Dyspnea Gastrointestinal : Complaining of nausea and vomiting, no diarrhea, complaining of muscular abdominal pain secondary to vomiting profusely. Genitourinary : no irregular bleeding, No Dysuria, No Urinary Frequency, No Hematuria, No Urinary Incontinence, No Urgency, No Flank Pain, No Urinary Flow Changes, No Hesitancy Musculoskeletal : No joint pain, No Myalgias, No Joint Swelling Skin : No Skin Lesions, No rash Neuro : No Weakness, No Numbness, No Paresthesias, No Loss of Consciousness, No Dizziness, No Headache Psych : No Anxiety/Panic, No Depression, No SI/HI/AH/VH, No Social Issues, Heme/Lymph: No Bruising, No Bleeding,No Lymphadenopathy Endocrine : No Polyuria, No Polydipsia, No Temperature Intolerance [facility] Past Medical History Medical History PCOS (polycystic ovarian syndrome) Rash Polysubstance (excluding opioids) dependence, daily use Methadone maintenance therapy patient Anxiety and depression Diabetes Social History Social History Household Members: Family Household Members Other:: her neice Housing: House Do you presently have visiting nurse or other home services: No Alcohol intake: current Alcohol intake frequency: does not drink Patient Tobacco Use Status: Former Tobacco user Quit Date: 09/03/2017 Tobacco use type: Cigarette Cigarette Packs Per Day: 3 Cigarettes Per Day: 60.0 Years Smoked: 2 Smoked in Last 30 Days: No e-Cigarette/Vaping Use: Never Used Substance Use Type: Heroin and Marijuana Advance Directives: Yes Advance Directives on File: Yes Advance Directives Date on File: 01/11/22 Patient : No service: No Current occupational status: unemployed Physical Exam ED Vital Signs: Vital Signs - 24 hr 11/23/23 13:46 11/23/23 15:49 11/23/23 18:24 Temperature 99.0 F 98.1 F 98.4 F Pulse Rate 77 42 L Respiratory Rate 17 14 14 Blood Pressure 169/95 H 186/68 H 211/82 H Pulse Oximetry 95 99 97 Oxygen Delivery Method Room Air Room Air 11/23/23 19:51 Temperature Pulse Rate 78 Respiratory Rate 18 Blood Pressure 163/74 H Pulse Oximetry 98 Oxygen Delivery Method Room Air BMI result Body Mass Index 41.0 Const Other: Appearance: Alert. Oriented X3. Seems uncomfortable, vomiting Eyes: Pupils equal, round and reactive to light. ENT: Pharynx normal. Dry oral mucosa Neck: Normal inspection. Neck supple. No lymph nodes noted. No crepitus CVS: Normal heart rate and rhythm. Pulses normal. Normal S1 and S2 Respiratory: No respiratory distress. Breath sounds normal. No Wheezing. No rales Abdomen: Soft and nontender. No rigidity. No distention. Actively vomiting Skin: Skin warm and dry. Normal skin color. Normal skin turgor. Extremities: No lower extremity edema. No Lacerations. No Rash Neuro: Oriented X 3. No motor deficit. No sensory deficit. Moving all extremities. No slurred speech. CN 2 through 12 grossly intact Psych: calm, cooperative, normal affect Course Course Course Narrative: - Medications Administered Discontinued Medications Generic Name Dose Route Start Last Admin Trade Name Freq PRN Reason Stop Dose Admin Amlodipine Besylate 10 mg 11/23/23 18:44 11/23/23 19:53 Amlodipine Besylate 10 Mg Tablet PO 11/23/23 18:45 10 mg ONCE ONE Administration Protocol Sodium Chloride 1,000 mls @ 999 mls/hr 11/23/23 14:08 11/23/23 17:48 Ns IVCONT 11/23/23 15:08 Infused .Q1H1M ONE Infusion Sodium Chloride 1,000 mls @ 999 mls/hr 11/23/23 17:15 11/23/23 20:34 Ns IVCONT 11/23/23 18:15 Infused .Q1H1M ONE Infusion Insulin Human Regular 12 unit 11/23/23 16:58 11/23/23 17:51 Insulin Regular, Human 100 Unit/Ml 3 Ml Vial 0.1 unit/kg (12 unit) 11/23/23 16:59 12 unit IVPUSH Administration ONCE ONE Insulin Human Regular 10 unit 11/23/23 19:34 11/23/23 19:56 Insulin Regular, Human 100 Unit/Ml 3 Ml Vial IVPUSH 11/23/23 19:35 10 unit ONCE ONE Administration Lidocaine HCl 4 ml 11/23/23 17:54 11/23/23 17:55 Lidocaine Hcl 1 % 20 Ml Vial INFILTRATI 11/23/23 17:55 4 ml ONCE ONE Administration Metoclopramide HCl 10 mg 11/23/23 17:13 11/23/23 17:48 Metoclopramide Hcl 10 Mg/2 Ml Vial IVPUSH 11/23/23 17:14 10 mg ONCE ONE Administration Ondansetron HCl 4 mg 11/23/23 14:15 11/23/23 16:37 Ondansetron Hcl 4 Mg/2 Ml Vial IVPUSH 11/23/23 14:16 Not Given ONCE ONE Prochlorperazine Edisylate 10 mg 11/23/23 19:16 11/23/23 19:53 Prochlorperazine Edisylate 10 Mg/2 Ml Vial IVPUSH 11/23/23 19:17 10 mg ONCE ONE Administration Medical Decision Making Medical Decision Making MDM Narrative: -I was informed by the patient's nurse that the patient is a difficult stick. I was able to insert an ultrasound-guided left internal jugular 18 gauge line, labs obtained. Fluids running. -my interpretation of labs: White blood cell count and hematology at baseline. Patient's chemistry within normal limits except by the glucose of 431, anion gap closed, beta hydroxybutyrate elevated at 1.59 -patient was given fluids, multiple doses of different medications for vomiting. Patient is still vomiting. -I discussed the patient with the hospitalist team, patient being admitted for intractable vomiting Differential Diagnosis Differential Diagnoses: The differential diagnosis associated with the presentation includes (Polysubstance abuse, dehydration, medication noncompliance, hyperglycemia, hypotension) Admission/Observation Consideration of admission/observation: Escalation of care including admission/observation considered Consult Healthcare Provider Management of the patient was discussed with: Hospitalist Lab Data MDM Lab Attestation statement: I reviewed the patient's lab results. 11/23/23 16:34 11/23/23 16:34 Labs: Lab Results 11/23/23 11/23/23 11/23/23 Range/Units 16:34 17:49 18:27 WBC 14.5 H (4.8-10.8) X10*3/uL RBC 4.74 (4.20-5.50) X10*6/uL Hgb 12.3 (12.0-16.0) g/dl Hct 37.1 (37.0-47.0) % MCV 78.3 L (80.0-98.0) fL MCH 25.9 L (27.0-33.0) pg MCHC 33.2 (31.0-35.0) g/dl RDW 13.1 (11.0-16.0) % Plt Count 416 H (160-400) X10*3/uL MPV 8.7 L (9.4-12.3) fL Immature Gran % (Auto) 0.6 H (0.0-0.4) % Neut % (Auto) 86.9 H (45-73) % Lymph % (Auto) 8.2 L (20-40) % [place] % (Auto) 4.1 (2-11) % Eos % (Auto) 0.0 (0-4) % Baso % (Auto) 0.2 (0-2) % Lymph # (Auto) 1.2 (1.2-4.9) X10*3/uL [place] # (Auto) 0.6 (0.1-1.2) X10*3/uL Eos # (Auto) 0.0 (0.0-0.4) X10*3/uL Baso # (Auto) 0.0 (0.0-0.2) X10*3/uL Abs Immat Gran (auto) 0.09 H (0.00-0.03) X10*3/uL Absolute Neuts (auto) 12.6 H (2.0-8.3) x10*3/uL Absolute Nucleated RBC 0.000 (0.0-0.012) X10*3/uL Nucleated RBC % (auto) 0.0 (0.0-0.2) /100WBC PT 13.7 H (11.1-13.3) SEC INR 1.1 (0.9-1.1) Sodium 133 L (135-145) mmol/L Potassium 4.0 (3.3-5.1) mmol/L Chloride 93 L (96-108) mmol/L Carbon Dioxide 27 (22-29) mmol/L Anion Gap 17 (12-20) BUN 13 (9-16) mg/dL Creatinine 0.89 (0.5-1.4) mg/dL Estim Creat Clear Calc 119.3 Estimated GFR > 60 POC Glucose 411 H* 356 H* (60-115) mg/dL Random Glucose 431 H* (60-115) mg/dL Lactic Acid 1.2 (0.5-2.0) mmol/L Calcium 9.4 D (8.4-10.2) mg/dL Magnesium 1.8 (1.6-2.6) mg/dL Total Bilirubin 0.5 (0.0-1.0) mg/dL Direct Bilirubin 0.2 (0.0-0.5) mg/dL AST 10 (5-31) U/L ALT 10 (0-31) U/L Alkaline Phosphatase 113 (39-117) U/L Total Protein 9.0 H (6.5-8.0) g/dL Albumin 3.6 (3.5-5.0) g/dL Lipase 18 (8-78) U/L Beta-Hydroxybutyrate 1.59 H (0.02-0.27) mmol/L Beta HCG, Quant < 2 mIU/mL Ethyl Alcohol < 10 mg/dL 11/23/23 11/23/23 Range/Units 19:50 20:56 WBC (4.8-10.8) X10*3/uL RBC (4.20-5.50) X10*6/uL Hgb (12.0-16.0) g/dl Hct (37.0-47.0) % MCV (80.0-98.0) fL MCH (27.0-33.0) pg MCHC (31.0-35.0) g/dl RDW (11.0-16.0) % Plt Count (160-400) X10*3/uL MPV (9.4-12.3) fL Immature Gran % (Auto) (0.0-0.4) % Neut % (Auto) (45-73) % Lymph % (Auto) (20-40) % [place] % (Auto) (2-11) % Eos % (Auto) (0-4) % Baso % (Auto) (0-2) % Lymph # (Auto) (1.2-4.9) X10*3/uL [place] # (Auto) (0.1-1.2) X10*3/uL Eos # (Auto) (0.0-0.4) X10*3/uL Baso # (Auto) (0.0-0.2) X10*3/uL Abs Immat Gran (auto) (0.00-0.03) X10*3/uL Absolute Neuts (auto) (2.0-8.3) x10*3/uL Absolute Nucleated RBC (0.0-0.012) X10*3/uL Nucleated RBC % (auto) (0.0-0.2) /100WBC PT (11.1-13.3) SEC INR (0.9-1.1) Sodium (135-145) mmol/L Potassium (3.3-5.1) mmol/L Chloride (96-108) mmol/L Carbon Dioxide (22-29) mmol/L Anion Gap (12-20) BUN (9-16) mg/dL Creatinine (0.5-1.4) mg/dL Estim Creat Clear Calc Estimated GFR POC Glucose 369 H* 354 H* (60-115) mg/dL Random Glucose (60-115) mg/dL Lactic Acid (0.5-2.0) mmol/L Calcium (8.4-10.2) mg/dL Magnesium (1.6-2.6) mg/dL Total Bilirubin (0.0-1.0) mg/dL Direct Bilirubin (0.0-0.5) mg/dL AST (5-31) U/L ALT (0-31) U/L Alkaline Phosphatase (39-117) U/L Total Protein (6.5-8.0) g/dL Albumin (3.5-5.0) g/dL Lipase (8-78) U/L Beta-Hydroxybutyrate (0.02-0.27) mmol/L Beta HCG, Quant mIU/mL Ethyl Alcohol mg/dL Critical Care Time Critical Care Time Critical Care Time: Yes Total Critical Care Time: 75 Attestation: I have personally provided critical care time. Time includes review of lab data, radiology results, discussion with consultants, and monitoring for potential decompensation. Intervention performed as documented. Discharge Plan Discharge Clinical Impression: Intractable cyclical vomiting, Acute hyperglycemia, Hypertension Patient Disposition: Admitted As Inpatient
[2023-11-23 15:49] VITALS: BP 186/68; PULSE 42; RESP 14; TEMP 36.7; O2SAT 99
[2023-11-23] MEDS: 0.9 % Sodium Chloride 1,000 ML 999 ML IVCONT ×2 (16:36→17:48)
[2023-11-23 16:39] LABS: MANUAL DIFF FLAG NO
[2023-11-23 16:41] LABS: Basophils Percent Auto 0.2 % (0-2); Hematocrit 37.1 % (37.0-47.0); Hemoglobin 12.3 g/dl (12.0-16.0); Imm Gran Abs Auto 0.09 X10*3/uL (0.00-0.03); Imm Gran Pct Auto 0.6 % (0.0-0.4); Lymphocytes Absolute Auto 1.2 X10*3/uL (1.2-4.9); Lymphocytes Percent Auto 8.2 % (20-40); Mean Corpuscular HGB Conc 33.2 g/dl (31.0-35.0); Mean Corpuscular Hemoglobin 25.9 pg (27.0-33.0); Mean Corpuscular Volume 78.3 fL (80.0-98.0); Mean Platelet Volume 8.7 fL (9.4-12.3); Monocytes Absolute Auto 0.6 X10*3/uL (0.1-1.2); Monocytes Percent Auto 4.1 % (2-11); Neutrophils Absolute Auto 12.6 x10*3/uL (2.0-8.3); Neutrophils Percent Auto 86.9 % (45-73); Platelet Count 416 X10*3/uL (160-400); Red Blood Count 4.74 X10*6/uL (4.20-5.50); Red Cell Distribution Width 13.1 % (11.0-16.0); White Blood Count 14.5 X10*3/uL (4.8-10.8)
[2023-11-23 16:46] LABS: INTERNATIONAL NORM RATIO 1.1 (0.9-1.1); Prothrombin Time 13.7 SEC (11.1-13.3)
[2023-11-23 16:49] LABS: Lactic Acid 1.2 mmol/L (0.5-2.0)
[2023-11-23 16:55] LABS: Beta-Hydroxybutyrate 1.59 mmol/L (0.02-0.27)
[2023-11-23 16:58] LABS: Alanine Aminotransferase 10 U/L (0-31); Albumin Level 3.6 g/dL (3.5-5.0); Alkaline Phosphatase 113 U/L (39-117); Anion Gap 17 (12-20); Aspartate Amino Transferase 10 U/L (5-31); Bilirubin Direct 0.2 mg/dL (0.0-0.5); Bilirubin Total 0.5 mg/dL (0.0-1.0); Blood Urea Nitrogen 13 mg/dL (9-16); Calcium 9.4 mg/dL (8.4-10.2); Carbon Dioxide 27 mmol/L (22-29); Chloride 93 mmol/L (96-108); Creatinine Clr Calc Pharmacy 119.3; Estimated Glomerular Filt Rate > 60; Ethanol < 10 mg/dL; Glucose Random 431 mg/dL (60-115); Lipase 18 U/L (8-78); Magnesium 1.8 mg/dL (1.6-2.6); Sodium 133 mmol/L (135-145)
[2023-11-23 17:04] LABS: HCG Quantitative < 2 mIU/mL
[2023-11-23] MEDS: Metoclopramide HCl 10 MG/2 ML VIAL IVPUSH (17:48)
[2023-11-23] MEDS: Insulin Regular, Human 100 UNIT/ML 3 ML VIAL 12 UNIT IVPUSH (17:51)
[2023-11-23] MEDS: Lidocaine HCl 1 % 20 ML VIAL 4 ML INFILTRATI (17:55)
[2023-11-23 18:14] LABS: Glucose, Whole Blood 411 mg/dL (60-115)
[2023-11-23 18:24] VITALS: BP 211/82; RESP 14; TEMP 36.9; O2SAT 97
--- NOTE | 2023-11-23 18:28 | MHC.EDTECH ---
This pct recorded vitals blood pressure has been significantly higher then when patient was first triaged.RN and Provider is aware of high blood pressure.
[2023-11-23 18:31] LABS: Glucose, Whole Blood 356 mg/dL (60-115)
[2023-11-23 19:51] VITALS: BP 163/74; PULSE 78; RESP 18; O2SAT 98
[2023-11-23] MEDS: Prochlorperazine Edisylate 10 MG/2 ML VIAL IVPUSH (19:53)
[2023-11-23] MEDS: amLODIPine Besylate 10 MG TABLET PO (19:53)
[2023-11-23] MEDS: Insulin Regular, Human 100 UNIT/ML 3 ML VIAL 10 UNIT IVPUSH (19:56)
[2023-11-23 19:57] LABS: Glucose, Whole Blood 369 mg/dL (60-115)
[2023-11-23 21:01] LABS: Glucose, Whole Blood 354 mg/dL (60-115)
[2023-11-23 23:07] VITALS: BP 193/100; PULSE 87; RESP 16; TEMP 36.8; O2SAT 96
[2023-11-23 23:42] LABS: Appearance Urine Clear; Color Urine Yellow; Glucose Urine UA >=1000 mg/dL (Negative); Leukocyte Esterase Urine Negative (Negative); Nitrite Urine Negative (Negative); PH 5.5 (5.0-9.0); Specific Gravity - Urine >= 1.030 (1.005-1.025); UMIC TRIGGER UACC YES; Urine Blood Moderate (2+) (Negative); Urine Ketones 80 mg/dL (Negative); Urine Protein 30 (1+) mg/dL (Neg-Trace)
[2023-11-23 23:45] LABS: Bacteria Urine Trace (None Seen); Hyaline Casts Urine 0-2 /LPF (0-2); WBC Urine 0-5 /HPF (0-5)
[2023-11-23 23:49] LABS: Amphetamine Screen Urine Not Detected (Not Detect); Barbiturates, Urine Not Detected (Not Detect); Benzodiazepines Screen Urine Not Detected (Not Detect); Cannabinoid Screen Urine POSITIVE (Not Detect); Cocaine Screen Urine Not Detected (Not Detect); Fentanyl, urine POSITIVE (Not Detect); Opiate Screen Urine POSITIVE (Not Detect); Phencyclidine Screen Urine Not Detected (Not Detect)
[2023-11-24] VITALS (8 sets, daily range): BP systolic 142–183; BP diastolic 72–93; PULSE 65–96; RESP 16–20; TEMP 36.4–37.3; O2SAT 93–98
[2023-11-24] MEDS: 0.9 % Sodium Chloride 1,000 ML 150 ML IVCONT ×4 (00:41→17:14)
[2023-11-24] MEDS: LORazepam 2 MG/ML VIAL 1 MG IVPUSH (00:42)
[2023-11-24] MEDS: Prochlorperazine Edisylate 10 MG/2 ML VIAL IVPUSH (00:42)
[2023-11-24] MEDS: Pantoprazole Sodium 40 MG/10 ML VIAL IVPUSH ×2 (00:42→07:53)
[2023-11-24] MEDS: Insulin Regular, Human 100 UNIT/ML 3 ML VIAL IVPUSH (00:44)
--- NOTE | 2023-11-24 01:07 | PC.NURSE ---
pt comes in utht n/vx2 days. Admits to heroin and cannabis use ( came back positive for fentyal and cannabis and opiates) . Pt is also a diabetic and has HTN but has not been taking medications. PMH PCOS, Rash, DM, Depression, Opiod dependence. Pt had EJ inserted by provider at bedside. Pt admit for uncontrolled diabetes ( insulin via IV- beta hydroxybutyrate 1.6) and intractable vomiting. Pt has NS going at 125.
[2023-11-24 01:53] LABS: Glucose, Whole Blood 360 mg/dL (60-115)
[2023-11-24] MEDS: Labetalol HCL 100 MG/20 ML VIAL 10 MG IVPUSH (03:12)
[2023-11-24 03:25] LABS: Glucose, Whole Blood 371 mg/dL (60-115)
[2023-11-24] MEDS: Insulin Glargine,Hum.rec.anlog 100 UNIT/ML 10 ML VIAL 10 UNIT SUBCUT (03:44)
[2023-11-24] MEDS: amLODIPine Besylate 2.5 MG TABLET 7.5 MG PO (03:44)
--- NOTE | 2023-11-24 03:58 | P.HPHOSP_ITS ---
History of Present Illness Date of Service: 11/23/23 Attending physician on admission: [place] Chief Complaint: Nausea and vomiting Misty Schmitt is a 38 years old woman with PMHx significant for IVDU (heroin), gallbladder sludge, type 2 diabetes mellitus on insulin and hypertension presents to the emergency department complaining of nausea, vomiting and heartburn associated with anxiety since . She has not been using her insulin and hypertensive since August 2023. She denied any abdominal pain, diarrhea, headache, chest pain, shortness on breath, fever, chills or palpitation. She did not report any acute urinary symptoms. Last use of heroin was today. She also uses marijuana. Denies alcohol abuse. She has been evaluated in the emergency department in the past for similar symptoms and found to have cyclic vomiting syndrome. In the ED, she was found to have hypertension, last blood pressure is 166/92. Blood workup is remarkable for leukocytosis of 14.5. There is no anemia. Platelets are 416. Blood glucose is quite elevated and has been fluctuating between 411-354. There is no metabolic acidosis. Renal function and LFTs are normal. Beta hydroxybutyrate is 1.59. test is negative. Chart review abdominal pelvis CT scan - January 2023: Gallbladder is distended with mild layering dense material which may reflect stones or biliary sludge. Abdominal ultrasound January 2023: Distended gallbladder containing sludge with no finding of cholecystitis. Review of Systems 2 Review of Systems: All 12 systems were reviewed and normal except as noted in HPI. [facility] Medical History PCOS (polycystic ovarian syndrome) Rash Polysubstance (excluding opioids) dependence, daily use Methadone maintenance therapy patient Anxiety and depression Diabetes Social History Household Members: Children and Other Household Members Other:: daughter Housing: House Do you presently have visiting nurse or other home services: No Alcohol intake: current Alcohol intake frequency: does not drink Patient Tobacco Use Status: Former Tobacco user Quit Date: 09/03/2017 Tobacco use type: Cigarette Cigarette Packs Per Day: 3 Cigarettes Per Day: 60.0 Years Smoked: 2 e-Cigarette/Vaping Use: Never Used Substance Use Type: Heroin and Marijuana Advance Directives Date on File: 01/11/22 service: No Current occupational status: unemployed Meds Allergies Allergy/AdvReac Type Severity Reaction Status Date / Time No Known Allergies Allergy Verified 01/03/23 13:47 Active Medications: Current Medications Amlodipine Besylate (Amlodipine Besylate 2.5 Mg Tablet) 7.5 mg PO DAILY REPLACED BY [facility]; Protocol Last Admin: 11/24/23 03:44 Dose: 7.5 mg Dextrose (Dextrose 50 % 25 Gm/50 Ml Syringe) 25 gm IVPUSH Q15M PRN; Protocol PRN Reason: per Hypoglycemia Standing Ord. Glucose (Glucose Gel 15 Gm Gel..Gram.) 15 gm PO Q15M PRN; Protocol PRN Reason: per Hypoglycemia Standing Ord. Sodium Chloride (Ns) 1,000 mls @ 150 mls/hr IVCONT .Q6H40M REPLACED BY [facility] Last Admin: 11/24/23 00:41 Dose: 150 mls/hr Insulin Glargine (Insulin Glargine,Hum.Rec.Anlog 100 Unit/Ml 10 Ml Vial) 10 unit SUBCUT DAILY REPLACED BY [facility] Last Admin: 11/24/23 03:44 Dose: 10 unit Insulin Human Lispro (Insulin Lispro 100 Unit/Ml 3 Ml Vial) 0 unit SUBCUT Q4H REPLACED BY [facility]; Protocol Lisinopril (Lisinopril 5 Mg Tablet) 5 mg PO DAILY REPLACED BY [facility]; Protocol Pantoprazole Sodium (Pantoprazole Sodium 40 Mg/10 Ml Vial) 40 mg IVPUSH DAILY REPLACED BY [facility] Last Admin: 11/24/23 00:42 Dose: 40 mg Sodium Chloride (0.9 % Sodium Chloride Flush 3 Ml Syringe) 3 ml IVFLUSH QSHIFT REPLACED BY [facility] Last Admin: 11/24/23 01:05 Dose: Not Given Home Medications Medication Instructions Recorded Confirmed Last Taken Type methadone 10 mg/mL oral concentrate 100 mg PO DAILY 01/10/22 11/24/23 11/22/23 09:00 History lisinopril 5 mg tablet 5 mg PO DAILY 11/24/23 11/24/23 Unknown History Physical Exam 2 Vital Signs and Narrative: Vital Signs: Last Vital Signs Temp 98.4 F 11/24/23 02:47 Pulse 88 11/24/23 03:45 Resp 20 11/24/23 02:47 BP 166/92 H 11/24/23 03:45 Pulse Ox 97 11/24/23 02:47 O2 Del Method Room Air 11/24/23 02:47 BMI result Body Mass Index 41.0 Constitutional - Awake and Alert, No apparent distress. Looks uncomfortable due to nausea. Afebrile. HEENT - dry oral mucosa. Normal sclerae. Heart - regular rate and rhythm. No murmur. Lungs - Normal lung expansion, Normal respiratory effort, No respiratory distress, CTA bilaterally Gastrointestinal - increased bowel sounds. Epigastric discomfort. No rebound no guarding. Extremities - no calf tenderness bilaterally, no swelling Skin - Warm/Dry Neurological - Alert & oriented x3. No focal weakness. Normal speech. Psychological - Appropriate affect Results Labs 11/23/23 16:34 11/23/23 16:34 Labs: Laboratory Results - last 24 hr 11/23/23 11/23/23 11/23/23 16:34 17:49 18:27 MCV 78.3 L MCH 25.9 L MCHC 33.2 RDW 13.1 Plt Count 416 H MPV 8.7 L Immature Gran % (Auto) 0.6 H Neut % (Auto) 86.9 H Lymph % (Auto) 8.2 L Moore % (Auto) 4.1 Eos % (Auto) 0.0 Baso % (Auto) 0.2 Lymph # (Auto) 1.2 Moore # (Auto) 0.6 Eos # (Auto) 0.0 Baso # (Auto) 0.0 Abs Immat Gran (auto) 0.09 H Absolute Neuts (auto) 12.6 H Absolute Nucleated RBC 0.000 Nucleated RBC % (auto) 0.0 PT 13.7 H INR 1.1 Anion Gap 17 Estim Creat Clear Calc 119.3 Estimated GFR > 60 POC Glucose 411 H* 356 H* Random Glucose 431 H* Lactic Acid 1.2 Calcium 9.4 D Magnesium 1.8 Total Bilirubin 0.5 Direct Bilirubin 0.2 AST 10 ALT 10 Alkaline Phosphatase 113 Total Protein 9.0 H Albumin 3.6 Lipase 18 Beta-Hydroxybutyrate 1.59 H Beta HCG, Quant < 2 Urine Color Urine Appearance Urine pH Ur Specific [place] Urine Protein Urine Glucose (UA) Urine Ketones Urine Blood Urine Nitrite Ur Leukocyte Esterase Urine RBC Urine WBC Ur Squamous Epith Cells Urine Bacteria Hyaline Casts Urine Opiates Screen Urine Fentanyl Screen Ur Barbiturates Screen Ur Phencyclidine Scrn Ur Amphetamines Screen U Benzodiazepines Scrn Urine Cocaine Screen U Marijuana (THC) Screen Ethyl Alcohol < 10 11/23/23 11/23/23 11/23/23 19:50 20:56 23:35 MCV MCH MCHC RDW Plt Count MPV Immature Gran % (Auto) Neut % (Auto) Lymph % (Auto) Moore % (Auto) Eos % (Auto) Baso % (Auto) Lymph # (Auto) Moore # (Auto) Eos # (Auto) Baso # (Auto) Abs Immat Gran (auto) Absolute Neuts (auto) Absolute Nucleated RBC Nucleated RBC % (auto) PT INR Anion Gap Estim Creat Clear Calc Estimated GFR POC Glucose 369 H* 354 H* Random Glucose Lactic Acid Calcium Magnesium Total Bilirubin Direct Bilirubin AST ALT Alkaline Phosphatase Total Protein Albumin Lipase Beta-Hydroxybutyrate Beta HCG, Quant Urine Color Yellow Urine Appearance Clear Urine pH 5.5 Ur Specific [place] >= 1.030 H Urine Protein 30 (1+) H Urine Glucose (UA) >=1000 H Urine Ketones 80 Urine Blood Moderate (2+) H Urine Nitrite Negative Ur Leukocyte Esterase Negative Urine RBC 11-20 H Urine WBC 0-5 Ur Squamous Epith Cells 3-5 Urine Bacteria Trace Hyaline Casts 0-2 Urine Opiates Screen POSITIVE H Urine Fentanyl Screen POSITIVE H Ur Barbiturates Screen Not Detected Ur Phencyclidine Scrn Not Detected Ur Amphetamines Screen Not Detected U Benzodiazepines Scrn Not Detected Urine Cocaine Screen Not Detected U Marijuana (THC) Screen POSITIVE H Ethyl Alcohol 11/24/23 11/24/23 01:50 03:21 MCV MCH MCHC RDW Plt Count MPV Immature Gran % (Auto) Neut % (Auto) Lymph % (Auto) Moore % (Auto) Eos % (Auto) Baso % (Auto) Lymph # (Auto) Moore # (Auto) Eos # (Auto) Baso # (Auto) Abs Immat Gran (auto) Absolute Neuts (auto) Absolute Nucleated RBC Nucleated RBC % (auto) PT INR Anion Gap Estim Creat Clear Calc Estimated GFR POC Glucose 360 H* 371 H* Random Glucose Lactic Acid Calcium Magnesium Total Bilirubin Direct Bilirubin AST ALT Alkaline Phosphatase Total Protein Albumin Lipase Beta-Hydroxybutyrate Beta HCG, Quant Urine Color Urine Appearance Urine pH Ur Specific [place] Urine Protein Urine Glucose (UA) Urine Ketones Urine Blood Urine Nitrite Ur Leukocyte Esterase Urine RBC Urine WBC Ur Squamous Epith Cells Urine Bacteria Hyaline Casts Urine Opiates Screen Urine Fentanyl Screen Ur Barbiturates Screen Ur Phencyclidine Scrn Ur Amphetamines Screen U Benzodiazepines Scrn Urine Cocaine Screen U Marijuana (THC) Screen Ethyl Alcohol Assessment and Plan (1) Hypertension: Qualifiers: Hypertension type: primary hypertension Qualified Code(s): I10 - Essential (primary) hypertension Status: Acute (2) Acute hyperglycemia: Status: Acute (3) Cyclic vomiting syndrome: Status: Acute (4) Gallbladder sludge: Status: Acute (5) Gastritis: Qualifiers: Gastritis type: unspecified gastritis Chronicity: acute Gastritis bleeding: without bleeding Qualified Code(s): K29.00 - Acute gastritis without bleeding Status: Acute Plan Misty Schmitt is a 38 years old woman with PMHx cyclic vomiting syndrome and gallbladder sludge admitted with: * Nausea and vomiting associated with heartburn and abdominal discomfort. Concern for cyclic vomiting syndrome. Admit to hospitalist service. Continue IV fluids. Antiemetic therapy as needed. Start treatment with Protonix IV. Avoid marijuana use. Abdominal ultrasound to assess for acute cholecystitis. * Essential hypertension. Restart amlodipine and lisinopril. Patient received 1 dose of labetalol 10 mg IV. Continue to monitor blood pressure. * Type 2 diabetes mellitus, noncompliant with insulin. Currently uncontrolled. No DKA findings. Continue IV fluids. Start treatment with Lantus and insulin sliding scale. Blood glucose monitoring every 4 hours for now. Check hemoglobin A1c. * Morbid obesity. BMI 41.1 kg/m2. Weight loss. * IV drug use: Heroin. Additional medicine consult. DVT prophylaxis: Heparin subcut Code status: Full Patient will need hospitalization for at least 2 midnights for cyclic vomiting syndrome and uncontrolled diabetes treatment with antiemetic therapy, IV fluids, antiemetic therapy + close monitoring of blood glucose and vital signs. Quality Stroke Does the patient have a stroke diagnosis?: No VTE Prior VTE?: No VTE Risk Level:: Medical - moderate - high VTE Device Contraindication: Treatment Not Indicated VTE Drug Contraindication: Treatment Not Indicated
--- NOTE | 2023-11-24 04:46 | HO.SKINPHOTO ---
Location: left upper arm Category:injection site wound Stage: Length: Width: Depth: cm Location: Category: Stage: Length: Width: Depth: cm Location: Category: Stage: Length: Width: Depth: cm Location: Category: Stage: Length: Width: Depth: cm Location: Category: Stage: Length: Width: Depth: cm Location: Category: Stage: Length: Width: Depth: cm
[2023-11-24 05:51] LABS: MANUAL DIFF FLAG NO
[2023-11-24 05:56] LABS: Basophils Percent Auto 0.2 % (0-2); Eosinophils Percent Auto 0.1 % (0-4); Hematocrit 37.3 % (37.0-47.0); Hemoglobin 12.2 g/dl (12.0-16.0); Imm Gran Abs Auto 0.13 X10*3/uL (0.00-0.03); Imm Gran Pct Auto 0.9 % (0.0-0.4); Lymphocytes Absolute Auto 1.5 X10*3/uL (1.2-4.9); Lymphocytes Percent Auto 10.2 % (20-40); Mean Corpuscular HGB Conc 32.7 g/dl (31.0-35.0); Mean Corpuscular Hemoglobin 25.7 pg (27.0-33.0); Mean Corpuscular Volume 78.5 fL (80.0-98.0); Mean Platelet Volume 8.9 fL (9.4-12.3); Monocytes Absolute Auto 0.7 X10*3/uL (0.1-1.2); Monocytes Percent Auto 4.6 % (2-11); Neutrophils Absolute Auto 12.2 x10*3/uL (2.0-8.3); Platelet Count 465 X10*3/uL (160-400); Red Blood Count 4.75 X10*6/uL (4.20-5.50); Red Cell Distribution Width 13.5 % (11.0-16.0); White Blood Count 14.5 X10*3/uL (4.8-10.8)
[2023-11-24 06:23] LABS: Alanine Aminotransferase 9 U/L (0-31); Albumin Level 3.4 g/dL (3.5-5.0); Alkaline Phosphatase 100 U/L (39-117); Anion Gap 16 (12-20); Aspartate Amino Transferase 10 U/L (5-31); Bilirubin Total 0.4 mg/dL (0.0-1.0); Blood Urea Nitrogen 14 mg/dL (9-16); Calcium 8.8 mg/dL (8.4-10.2); Carbon Dioxide 23 mmol/L (22-29); Chloride 100 mmol/L (96-108); Creatinine Clr Calc Pharmacy 127.9; Estimated Glomerular Filt Rate > 60; Potassium 3.9 mmol/L (3.3-5.1); Sodium 135 mmol/L (135-145); Total Protein 8.6 g/dL (6.5-8.0)
[2023-11-24 06:31] LABS: Glucose Random 409 mg/dL (60-115)
[2023-11-24] MEDS: Insulin Lispro 100 UNIT/ML 3 ML VIAL 10 UNIT SUBCUT (07:11)
[2023-11-24] MEDS: 0.9 % Sodium Chloride 500 ML 999 ML IV (07:11)
[2023-11-24 07:24] LABS: Estimated Average Glucose 338 mg/dL; Hemoglobin A1c % 13.4 % (<6.0)
[2023-11-24] MEDS: lisinopriL 5 MG TABLET PO (07:53)
[2023-11-24] MEDS: Heparin Sodium,Porcine 5,000 UNIT/ML VIAL 5000 UNIT SUBCUT ×2 (07:53→17:12)
[2023-11-24 08:07] LABS: Glucose, Whole Blood 349 mg/dL (60-115)
[2023-11-24] MEDS: Insulin Lispro 100 UNIT/ML 3 ML VIAL SUBCUT ×4 (08:13→21:09)
--- NOTE | 2023-11-24 09:18 | PHA.MEDREC ---
Pharmacy Consult ? Medication Reconciliation Pharmacy has completed the medication reconciliation. Pt reports methadone 100 mg daily at [facility]
--- NOTE | 2023-11-24 09:36 | HE.PHANOTE ---
METHADONE VERIFICATION Methadone verification form received, last dose given 100 mg on 11/22/23 @0930 (at [facility] [place] - [phone]), confirmed from Geetha. Recieved from Noemi Lopez RN.
[2023-11-24] MEDS: methADONE HCl 20 MG/2 ML ORAL.CONC 100 MG PO (10:35)
[2023-11-24 11:31] LABS: Glucose, Whole Blood 273 mg/dL (60-115)
--- NOTE | 2023-11-24 12:22 | MHC.RECOVRN ---
Met with pt [id number] after consult placed to Addiction Medicine for IVDU and currently on Methadone.? Chart review completed and received report from floor nurse Jed. Pt had presented to the ED via EMS for N/V x 1 day and also reporting that she had been off her BP and Diabetic Meds since August.? Pt was admitted to the floor for cyclin vomiting syndrome and uncontrolled diabetes treatment.? Per her report she is on 100mg methadone/day for OUD and has recently returned to use.? No pain issues reported and none observed. Upon assessment pt is lying in bed awake and alert.? No reports of non verbal cues of pain and her COWS assessment was a 0. Pt reports that she went to [facility] back in May for approx.. 1 month and was able to maintain sobriety until August of 2023.? She describes increased stress due to work as a cause of the return to use.? Despite this she has remained on her methadone per her report at [facility] in [place] receiving 100mg/day.? Her last dose per report was 11/22/23 AM.? Pt reports using IV heroin 1 bundle/day up until coming to the ER.? Pt identified that it is not the dose of methadone that caused her to return to use but the lack of therapy and Mental Health support. Pt? is interested in increasing her outpatient supports to better support her recovery.? She would like to continue with her current methadone clinic for MOUD. T/W provided pt with community resources for recovery and mental health.? We also discussed harm reduction including never use alone and written education provided.? Reprot was provided to pt?s nurse Jed as well as to ACS team.? ACS will continue to support while pt. hospitalized.
--- NOTE | 2023-11-24 12:34 | P.PNIM_ITS ---
Subjective Subjective Date of Service: 11/24/23 Interval History: seen and examined this morning follow up for uncontrolled DM, HTN, N/V no abdominal pain, vomiting resolved has not had insulin or bp meds since August Review of Systems Review of Systems: Yes all other systems are reviewed and are negative Constitutional Constitutional: Denies chills and Denies fever(s) Cardiovascular Cardiovascular: Denies chest pain and Denies palpitations Gastrointestinal Gastrointestinal: Denies abdominal pain Endocrine Endocrine: Denies palpitations Physical Exam 2 Vital Signs: Vital Signs: Last Vital Signs Temp 97.5 F 11/24/23 07:34 Pulse 92 11/24/23 07:34 Resp 18 11/24/23 07:34 BP 155/81 H 11/24/23 11:38 Pulse Ox 97 11/24/23 07:34 O2 Del Method Room Air 11/24/23 07:34 BMI result Body Mass Index 41.0 Const: General: cooperative, comfortable, no acute distress, alert and awake Nutritional Appearance: obese Orientation/consciousness: patient oriented x3 Resp: Effort & Inspection: normal respiratory effort, able to speak in complete sentences, no respiratory distress and no use of accessory muscles A uscultation: clear to auscultation bilaterally Cardio: Rate: regular rate Heart sounds: S1 normal heart sound present and S2 normal heart sound present GI: Inspection: No distended Palpation (GI): Soft to palpation and nontender Neuro: General: patient oriented x3, moves all extremities and CN's II-XI intact bilaterally Objective Data Active Medications Amlodipine Besylate (Amlodipine Besylate 2.5 Mg Tablet) 7.5 mg PO DAILY [facility]; Protocol Last Admin: 11/24/23 03:44 Dose: 7.5 mg Documented By: BRIA Dextrose (Dextrose 50 % 25 Gm/50 Ml Syringe) 25 gm IVPUSH Q15M PRN; Protocol PRN Reason: per Hypoglycemia Standing Ord. Glucose (Glucose Gel 15 Gm Gel..Gram.) 15 gm PO Q15M PRN; Protocol PRN Reason: per Hypoglycemia Standing Ord. Heparin Sodium (Porcine) (Heparin Sodium,Porcine 5,000 Unit/Ml Vial) 5,000 unit SUBCUT Q8H [facility] Last Admin: 11/24/23 07:53 Dose: 5,000 unit Documented By: LANETTE Sodium Chloride (Ns) 1,000 mls @ 150 mls/hr IVCONT .Q6H40M COUNTS INCLUDE 234 BEDS AT THE [facility] Last Admin: 11/24/23 12:28 Dose: Not Given Documented By: LANETTE Non-Admin Reason: IV Running Insulin Glargine (Insulin Glargine,Hum.Rec.Anlog 100 Unit/Ml 10 Ml Vial) 10 unit SUBCUT DAILY COUNTS INCLUDE 234 BEDS AT THE [facility] Last Admin: 11/24/23 03:44 Dose: 10 unit Documented By: BRIA Insulin Human Lispro (Insulin Lispro 100 Unit/Ml 3 Ml Vial) 0 unit SUBCUT Q4H COUNTS INCLUDE 234 BEDS AT THE [facility]; Protocol Last Admin: 11/24/23 11:48 Dose: 8 unit Documented By: LANETTE Lisinopril (Lisinopril 5 Mg Tablet) 5 mg PO DAILY [facility]S INCLUDE 234 BEDS AT THE [facility]; Protocol Last Admin: 11/24/23 07:53 Dose: 5 mg Documented By: LANETTE Methadone HCl (Methadone Hcl 20 Mg/2 Ml Oral.Conc) 100 mg PO DAILY COUNTS INCLUDE 234 BEDS AT [facility] Last Admin: 11/24/23 10:35 Dose: 100 mg Documented By: LANETTE Pantoprazole Sodium (Pantoprazole Sodium 40 Mg/10 Ml Vial) 40 mg IVPUSH DAILY COUNTS INCLUDE 234 BEDS AT THE [facility] Last Admin: 11/24/23 07:53 Dose: 40 mg Documented By: LANETTE Sodium Chloride (0.9 % Sodium Chloride Flush 3 Ml Syringe) 3 ml IVFLUSH QSHIFT COUNTS INCLUDE 234 BEDS AT THE [facility] Last Admin: 11/24/23 07:13 Dose: Not Given Documented By: LANETET Non-Admin Reason: IV Running Labs 11/24/23 05:42 11/24/23 05:42 Labs: Laboratory Results - last 24 hr 11/23/23 11/23/23 11/23/23 16:34 17:49 18:27 MCV 78.3 L MCH 25.9 L MCHC 33.2 RDW 13.1 Plt Count 416 H MPV 8.7 L Immature Gran % (Auto) 0.6 H Neut % (Auto) 86.9 H Lymph % (Auto) 8.2 L [place] % (Auto) 4.1 Eos % (Auto) 0.0 Baso % (Auto) 0.2 Lymph # (Auto) 1.2 [place] # (Auto) 0.6 Eos # (Auto) 0.0 Baso # (Auto) 0.0 Abs Immat Gran (auto) 0.09 H Absolute Neuts (auto) 12.6 H Absolute Nucleated RBC 0.000 Nucleated RBC % (auto) 0.0 PT 13.7 H INR 1.1 Anion Gap 17 Estim Creat Clear Calc 119.3 Estimated GFR > 60 POC Glucose 411 H* 356 H* Random Glucose 431 H* Estimat Average Glucose Hemoglobin A1c % Lactic Acid 1.2 Calcium 9.4 D Magnesium 1.8 Total Bilirubin 0.5 Direct Bilirubin 0.2 AST 10 ALT 10 Alkaline Phosphatase 113 Total Protein 9.0 H Albumin 3.6 Lipase 18 Beta-Hydroxybutyrate 1.59 H Beta HCG, Quant < 2 Urine Color Urine Appearance Urine pH Ur Specific [place] Urine Protein Urine Glucose (UA) Urine Ketones Urine Blood Urine Nitrite Ur Leukocyte Esterase Urine RBC Urine WBC Ur Squamous Epith Cells Urine Bacteria Hyaline Casts Urine Opiates Screen Urine Fentanyl Screen Ur Barbiturates Screen Ur Phencyclidine Scrn Ur Amphetamines Screen U Benzodiazepines Scrn Urine Cocaine Screen U Marijuana (THC) Screen Ethyl Alcohol < 10 11/23/23 11/23/23 11/23/23 19:50 20:56 23:35 MCV MCH MCHC RDW Plt Count MPV Immature Gran % (Auto) Neut % (Auto) Lymph % (Auto) [place] % (Auto) Eos % (Auto) Baso % (Auto) Lymph # (Auto) [place] # (Auto) Eos # (Auto) Baso # (Auto) Abs Immat Gran (auto) Absolute Neuts (auto) Absolute Nucleated RBC Nucleated RBC % (auto) PT INR Anion Gap Estim Creat Clear Calc Estimated GFR POC Glucose 369 H* 354 H* Random Glucose Estimat Average Glucose Hemoglobin A1c % Lactic Acid Calcium Magnesium Total Bilirubin Direct Bilirubin AST ALT Alkaline Phosphatase Total Protein Albumin Lipase Beta-Hydroxybutyrate Beta HCG, Quant Urine Color Yellow Urine Appearance Clear Urine pH 5.5 Ur Specific [place] >= 1.030 H Urine Protein 30 (1+) H Urine Glucose (UA) >=1000 H Urine Ketones 80 Urine Blood Moderate (2+) H Urine Nitrite Negative Ur Leukocyte Esterase Negative Urine RBC 11-20 H Urine WBC 0-5 Ur Squamous Epith Cells 3-5 Urine Bacteria Trace Hyaline Casts 0-2 Urine Opiates Screen POSITIVE H Urine Fentanyl Screen POSITIVE H Ur Barbiturates Screen Not Detected Ur Phencyclidine Scrn Not Detected Ur Amphetamines Screen Not Detected U Benzodiazepines Scrn Not Detected Urine Cocaine Screen Not Detected U Marijuana (THC) Screen POSITIVE H Ethyl Alcohol 03/23/24 03/23/24 03/23/24 01:50 03:21 05:42 MCV 78.5 L MCH 25.7 L MCHC 32.7 RDW 13.5 Plt Count 465 H MPV 8.9 L Immature Gran % (Auto) 0.9 H Neut % (Auto) 84.0 H Lymph % (Auto) 10.2 L [place] % (Auto) 4.6 Eos % (Auto) 0.1 Baso % (Auto) 0.2 Lymph # (Auto) 1.5 [place] # (Auto) 0.7 Eos # (Auto) 0.0 Baso # (Auto) 0.0 Abs Immat Gran (auto) 0.13 H Absolute Neuts (auto) 12.2 H Absolute Nucleated RBC 0.000 Nucleated RBC % (auto) 0.0 PT INR Anion Gap 16 Estim Creat Clear Calc 127.9 Estimated GFR > 60 POC Glucose 360 H* 371 H* Random Glucose 409 H* Estimat Average Glucose 338 Hemoglobin A1c % 13.4 H Lactic Acid Calcium 8.8 D Magnesium Total Bilirubin 0.4 Direct Bilirubin AST 10 ALT 9 Alkaline Phosphatase 100 Total Protein 8.6 H Albumin 3.4 L Lipase Beta-Hydroxybutyrate Beta HCG, Quant Urine Color Urine Appearance Urine pH Ur Specific [place] Urine Protein Urine Glucose (UA) Urine Ketones Urine Blood Urine Nitrite Ur Leukocyte Esterase Urine RBC Urine WBC Ur Squamous Epith Cells Urine Bacteria Hyaline Casts Urine Opiates Screen Urine Fentanyl Screen Ur Barbiturates Screen Ur Phencyclidine Scrn Ur Amphetamines Screen U Benzodiazepines Scrn Urine Cocaine Screen U Marijuana (THC) Screen Ethyl Alcohol 11/24/23 11/24/23 07:58 11:27 MCV MCH MCHC RDW Plt Count MPV Immature Gran % (Auto) Neut % (Auto) Lymph % (Auto) [place] % (Auto) Eos % (Auto) Baso % (Auto) Lymph # (Auto) [place] # (Auto) Eos # (Auto) Baso # (Auto) Abs Immat Gran (auto) Absolute Neuts (auto) Absolute Nucleated RBC Nucleated RBC % (auto) PT INR Anion Gap Estim Creat Clear Calc Estimated GFR POC Glucose 349 H 273 H Random Glucose Estimat Average Glucose Hemoglobin A1c % Lactic Acid Calcium Magnesium Total Bilirubin Direct Bilirubin AST ALT Alkaline Phosphatase Total Protein Albumin Lipase Beta-Hydroxybutyrate Beta HCG, Quant Urine Color Urine Appearance Urine pH Ur Specific [place] Urine Protein Urine Glucose (UA) Urine Ketones Urine Blood Urine Nitrite Ur Leukocyte Esterase Urine RBC Urine WBC Ur Squamous Epith Cells Urine Bacteria Hyaline Casts Urine Opiates Screen Urine Fentanyl Screen Ur Barbiturates Screen Ur Phencyclidine Scrn Ur Amphetamines Screen U Benzodiazepines Scrn Urine Cocaine Screen U Marijuana (THC) Screen Ethyl Alcohol Assessment and Plan (1) Intractable cyclical vomiting: Status: Acute (2) Acute hyperglycemia: Status: Acute (3) Hypertension: Status: Acute Plan This is a 38 year old woman with PMHx cyclic vomiting syndrome, DM, HTN and gallbladder sludge who presented with N/V found to have elevated blood sugar Nausea and vomiting possibly due to cyclic vomiting syndrome vs hyperglycemia vomiting resolved start clear liquids abdominal US, but pt denies abdominal pain uncontrolled HTN due to medication noncompliance received 1 dose of labetalol 10 mg IV Restart previous home meds amlodipine and lisinopril bp improving follow BP Type 2 diabetes mellitus with hyperglycemia due to medication noncompliance No DKA HbA1c 13.4 Started on Lantus and insulin sliding scale Morbid obesity BMI 41.1 kg/m2 Weight loss encouraged OUD continue methadone Addiction medicine consult pending DVT prophylaxis: Heparin subcut Code status: Full attending - Dr. Godoy Requires ongoing in patient stay for cyclic vomiting syndrome and uncontrolled diabetes treatment with antiemetic therapy, IV fluids, antiemetic therapy + close monitoring of blood glucose and vital signs. Quality Stroke Does the patient have a stroke diagnosis?: No VTE Prior VTE?: No VTE Risk Level:: Medical - moderate - high VTE Device Contraindication: Treatment Not Indicated VTE Drug Contraindication: Treatment Not Indicated
--- NOTE | 2023-11-24 12:39 | MHC.CM.PN ---
Female 38 lives with dtr and S.O. moving in. She states that she is independent with all functional mobility. She has a HCP on file. No PCP. The [facility] Br[facility] has been provided. She receives Methadone from [facility]. DP home self care, may need assist with transport, [facility] shuttle.
[2023-11-24 16:33] LABS: Glucose, Whole Blood 282 mg/dL (60-115)
[2023-11-24 20:03] LABS: Glucose, Whole Blood 343 mg/dL (60-115)
[2023-11-24] MEDS: LORazepam 1 MG TABLET PO (21:09)
[2023-11-25] MEDS: 0.9 % Sodium Chloride 1,000 ML 150 ML IVCONT ×2 (00:24→08:09)
[2023-11-25] MEDS: Heparin Sodium,Porcine 5,000 UNIT/ML VIAL 5000 UNIT SUBCUT ×3 (00:24→17:06)
[2023-11-25] MEDS: ondansetron HCL 4 MG/2 ML VIAL IVPUSH ×2 (05:06→12:15)
--- NOTE | 2023-11-25 06:17 | PC.NURSE ---
Patient feels anxious and vomited, Dr Manrique notified, Desmond ordered and administered with some relief. Ativan one dose given last evening and now patient is requesting another dose. Dr Manrique made aware, no new orders yet.
[2023-11-25 07:27] LABS: Glucose, Whole Blood 339 mg/dL (60-115)
[2023-11-25 07:29] VITALS: BP 218/98; PULSE 74; RESP 20; TEMP 36.7; O2SAT 98
[2023-11-25] MEDS: Prochlorperazine Edisylate 10 MG/2 ML VIAL 5 MG IVPUSH (07:47)
[2023-11-25] MEDS: lisinopriL 5 MG TABLET PO (07:58)
[2023-11-25] MEDS: 0.9 % Sodium Chloride Flush 3 ML SYRINGE IVFLUSH ×2 (07:59→15:08)
[2023-11-25] MEDS: Insulin Lispro 100 UNIT/ML 3 ML VIAL SUBCUT ×4 (07:59→20:52)
[2023-11-25] MEDS: amLODIPine Besylate 2.5 MG TABLET 7.5 MG PO (07:59)
[2023-11-25] MEDS: Pantoprazole Sodium 40 MG/10 ML VIAL IVPUSH (08:03)
--- NOTE | 2023-11-25 08:10 | PC.NURSE ---
Addendum entered by Marlys Davis RN 11/25/23 11:04: 0848- 1 hour after BP meds given BP 198/91, pulse 78. Patient nausea improved slightly, but still poor appetite. James OLEARY updated, per ANIRUDH [place] on hold for now, no new orders for BP. All needs met. Original Note: Patient reporting nausea and vomiting since 0400 with anxiety. BP 218/98, POC 339. Zofran was given at 0500 with little improvememt to nausea. Samira OLEARY made aware. Compazine IVpush ordered and given per EMAR. Scheduled BP meds given. Patient trying to rest at this time, advised to call if symptoms worsened. Patient verbalized understanding.
[2023-11-25 08:48] VITALS: BP 198/91; PULSE 78
[2023-11-25] MEDS: methADONE HCl 20 MG/2 ML ORAL.CONC 100 MG PO (09:03)
[2023-11-25 09:18] LABS: Basophils Percent Auto 0.2 % (0-2); Eosinophils Percent Auto 0.1 % (0-4); Hematocrit 35.5 % (37.0-47.0); Hemoglobin 11.9 g/dl (12.0-16.0); Imm Gran Abs Auto 0.19 X10*3/uL (0.00-0.03); Imm Gran Pct Auto 1.5 % (0.0-0.4); Lymphocytes Absolute Auto 1.5 X10*3/uL (1.2-4.9); Lymphocytes Percent Auto 12.1 % (20-40); MANUAL DIFF FLAG SCAN; Mean Corpuscular HGB Conc 33.5 g/dl (31.0-35.0); Mean Corpuscular Hemoglobin 26.3 pg (27.0-33.0); Mean Corpuscular Volume 78.5 fL (80.0-98.0); Mean Platelet Volume 8.6 fL (9.4-12.3); Monocytes Absolute Auto 0.4 X10*3/uL (0.1-1.2); Monocytes Percent Auto 3.4 % (2-11); Neutrophils Absolute Auto 10.5 x10*3/uL (2.0-8.3); Neutrophils Percent Auto 82.7 % (45-73); PLT CLUMP 1; Red Blood Count 4.52 X10*6/uL (4.20-5.50); Red Cell Distribution Width 13.2 % (11.0-16.0); SCAN SMEAR FLAG 1
[2023-11-25 09:30] LABS: Anion Gap 14 (12-20); Blood Urea Nitrogen 9 mg/dL (9-16); Calcium 8.3 mg/dL (8.4-10.2); Carbon Dioxide 21 mmol/L (22-29); Chloride 101 mmol/L (96-108); Creatinine Clr Calc Pharmacy 129.5; Estimated Glomerular Filt Rate > 60; Potassium 3.7 mmol/L (3.3-5.1); Sodium 132 mmol/L (135-145)
[2023-11-25 09:33] LABS: Glucose Random 351 mg/dL (60-115)
[2023-11-25 10:13] LABS: Platelet Count 378 X10*3/uL (160-400); SLIDE REVIEW VERIFIED; White Blood Count 12.6 X10*3/uL (4.8-10.8)
[2023-11-25 11:30] VITALS: BP 178/81; PULSE 75
--- NOTE | 2023-11-25 11:43 | HO.PM.IMPN ---
Subjective Subjective Date of Service: 11/25/23 Interval History: seen and examined this morning follow up for N/V, hyperglycemia vomiting and blood sugars had been improving, this am reported anxiety and V around 4 am and again after meds this am no diarrhea Review of Systems Review of Systems: Yes all other systems are reviewed and are negative Constitutional Constitutional: Denies chills and Denies fever(s) Cardiovascular Cardiovascular: Denies chest pain, Denies palpitations and Denies dyspnea Respiratory Respiratory: Denies cough and Denies dyspnea Endocrine Endocrine: Denies palpitations Physical Exam Vital Signs: Vital Signs: Last Vital Signs Temp 98.0 F 11/25/23 07:29 Pulse 75 11/25/23 11:30 Resp 20 11/25/23 07:29 BP 178/81 H 11/25/23 11:30 Pulse Ox 98 11/25/23 07:29 O2 Del Method Room Air 11/25/23 07:29 BMI result Body Mass Index 41.0 Const: General: cooperative, comfortable, no acute distress, alert and awake Nutritional Appearance: obese Orientation/consciousness: patient oriented x3 Resp: Effort & Inspection: normal respiratory effort, able to speak in complete sentences, no respiratory distress and no use of accessory muscles Auscultation: clear to auscultation bilaterally Cardio: Rate: regular rate Heart sounds: S1 normal heart sound present and S2 normal heart sound present GI: Other: no guarding, no rebound Inspection: No distended Palpation (GI): Soft to palpation and nontender Neuro: General: patient oriented x3, moves all extremities and CN's II-XI intact bilaterally Objective Data Active Medications Amlodipine Besylate (Amlodipine Besylate 2.5 Mg Tablet) 7.5 mg PO DAILY [facility]; Protocol Last Admin: 11/25/23 07:59 Dose: 7.5 mg Documented By: GÓMEZ Dextrose (Dextrose 50 % 25 Gm/50 Ml Syringe) 25 gm IVPUSH Q15M PRN; Protocol PRN Reason: per Hypoglycemia Standing Ord. Glucose (Glucose Gel 15 Gm Gel..Gram.) 15 gm PO Q15M PRN; Protocol PRN Reason: per Hypoglycemia Standing Ord. Heparin Sodium (Porcine) (Heparin Sodium,Porcine 5,000 Unit/Ml Vial) 5,000 unit SUBCUT Q8H [facility] Last Admin: 11/25/23 09:02 Dose: 5,000 unit Documented By: GÓMEZ Hydralazine HCl (Hydralazine Hcl 20 Mg/Ml Vial) 5 mg IVPUSH Q6H PRN; Protocol PRN Reason: SBP >180 Lactated Ringer's (Lr) 1,000 mls @ 100 mls/hr IVCONT .Q10H [facility] Insulin Glargine (Insulin Glargine,Hum.Rec.Anlog 100 Unit/Ml 10 Ml Vial) 15 unit SUBCUT DAILY [facility] Insulin Human Lispro (Insulin Lispro 100 Unit/Ml 3 Ml Vial) 0 unit SUBCUT QIDACHS [facility]; Protocol Last Admin: 11/25/23 07:59 Dose: 10 unit Documented By: GÓMEZ Lisinopril (Lisinopril 5 Mg Tablet) 5 mg PO DAILY [facility]; Protocol Last Admin: 11/25/23 07:58 Dose: 5 mg Documented By: GÓMEZ Lorazepam (Lorazepam 2 Mg/Ml Vial) 0.5 mg IVPUSH Q6H PRN PRN Reason: Anxiety Methadone HCl (Methadone Hcl 20 Mg/2 Ml Oral.Conc) 100 mg PO DAILY [facility] Last Admin: 11/25/23 09:03 Dose: 100 mg Documented By: GÓMEZ Ondansetron HCl (Ondansetron Hcl 4 Mg/2 Ml Vial) 4 mg IVPUSH Q6H PRN PRN Reason: Nausea and Vomiting Last Admin: 11/25/23 05:06 Dose: 4 mg Documented By: GERRI Pantoprazole Sodium (Pantoprazole Sodium 40 Mg/10 Ml Vial) 40 mg IVPUSH DAILY [facility] Last Admin: 11/25/23 08:03 Dose: 40 mg Documented By: GÓMEZ Sodium Chloride (0.9 % Sodium Chloride Flush 3 Ml Syringe) 3 ml IVFLUSH QSHIFT [facility] Last Admin: 11/25/23 07:59 Dose: 3 ml Documented By: GÓMEZ Labs 11/25/23 09:05 11/25/23 09:05 Labs: Laboratory Results - last 24 hr 11/24/23 11/24/23 11/25/23 16:11 19:46 07:01 MCV MCH MCHC RDW Plt Count MPV Immature Gran % (Auto) Neut % (Auto) Lymph % (Auto) [place] % (Auto) Eos % (Auto) Baso % (Auto) Lymph # (Auto) [place] # (Auto) Eos # (Auto) Baso # (Auto) Abs Immat Gran (auto) Absolute Neuts (auto) Absolute Nucleated RBC Nucleated RBC % (auto) Smear Tech's Comments Anion Gap Estim Creat Clear Calc Estimated GFR POC Glucose 282 H 343 H 339 H Random Glucose Calcium 11/25/23 09:05 MCV 78.5 L MCH 26.3 L MCHC 33.5 RDW 13.2 Plt Count 378 MPV 8.6 L Immature Gran % (Auto) 1.5 H Neut % (Auto) 82.7 H Lymph % (Auto) 12.1 L [place] % (Auto) 3.4 Eos % (Auto) 0.1 Baso % (Auto) 0.2 Lymph # (Auto) 1.5 [place] # (Auto) 0.4 Eos # (Auto) 0.0 Baso # (Auto) 0.0 Abs Immat Gran (auto) 0.19 H Absolute Neuts (auto) 10.5 H Absolute Nucleated RBC 0.000 Nucleated RBC % (auto) 0.0 Smear Tech's Comments VERIFIED Anion Gap 14 Estim Creat Clear Calc 129.5 Estimated GFR > 60 POC Glucose Random Glucose 351 H* Calcium 8.3 L Assessment and Plan (1) Intractable cyclical vomiting: Status: Acute (2) Acute hyperglycemia: Status: Acute Plan This is a 38 year old woman with PMHx cyclic vomiting syndrome, DM, HTN and gallbladder sludge who presented with N/V found to have elevated blood sugar Nausea and vomiting possibly due to cyclic vomiting syndrome vs hyperglycemia still with vomiting this am. no abdominal pain, non-tender on exam continue clear liquids abdominal US showing GB sludge similar to previous in 01/2023, no evidence of acute cholecystitis, LFTs wnl uncontrolled HTN due to medication noncompliance received 1 dose of labetalol 10 mg IV Restarted previous home meds amlodipine and lisinopril IV hydralazine prn follow BP Type 2 diabetes mellitus with hyperglycemia due to medication noncompliance No DKA HbA1c 13.4 Started on Lantus and insulin sliding scale, will likely need to be uptitrated as diet is advanced Morbid obesity BMI 41.1 kg/m2 Weight loss encouraged OUD continue methadone seen by Addiction medicine team - resourced provided DVT prophylaxis: Heparin subcut Code status: Full attending - Dr. Godoy Requires ongoing in patient stay for cyclic vomiting syndrome and uncontrolled diabetes treatment with antiemetic therapy, IV fluids, antiemetic therapy + close monitoring of blood glucose and vital signs. Quality Stroke Does the patient have a stroke diagnosis?: No VTE Prior VTE?: No VTE Risk Level:: Medical - moderate - high VTE Device Contraindication: Treatment Not Indicated VTE Drug Contraindication: Treatment Not Indicated
[2023-11-25 11:48] LABS: Glucose, Whole Blood 285 mg/dL (60-115)
[2023-11-25] MEDS: Insulin Glargine,Hum.rec.anlog 100 UNIT/ML 10 ML VIAL 15 UNIT SUBCUT (12:08)
[2023-11-25] MEDS: Lactated Ringers 1,000 ML 100 ML IVCONT ×2 (12:09→22:11)
[2023-11-25 12:10] VITALS: BP 170/79; PULSE 77
[2023-11-25] MEDS: LORazepam 2 MG/ML VIAL 0.5 MG IVPUSH ×2 (15:08→20:28)
[2023-11-25 15:17] VITALS: BP 152/74; PULSE 91; RESP 16; TEMP 36.6; O2SAT 98
[2023-11-25 16:09] LABS: Glucose, Whole Blood 262 mg/dL (60-115)
[2023-11-25 20:30] LABS: Glucose, Whole Blood 231 mg/dL (60-115)
[2023-11-25 23:40] VITALS: BP 162/88; PULSE 70; RESP 18; TEMP 36.7; O2SAT 96
[2023-11-26] MEDS: Heparin Sodium,Porcine 5,000 UNIT/ML VIAL 5000 UNIT SUBCUT ×3 (00:13→17:17)
[2023-11-26] MEDS: ondansetron HCL 4 MG/2 ML VIAL IVPUSH ×3 (00:14→17:53)
[2023-11-26] MEDS: LORazepam 2 MG/ML VIAL 0.5 MG IVPUSH (04:58)
[2023-11-26 07:14] VITALS: BP 152/64; PULSE 83; RESP 12; TEMP 36.6; O2SAT 98
[2023-11-26 07:21] LABS: Glucose, Whole Blood 266 mg/dL (60-115)
[2023-11-26] MEDS: Lactated Ringers 1,000 ML 100 ML IVCONT ×2 (08:48→20:23)
[2023-11-26] MEDS: Insulin Lispro 100 UNIT/ML 3 ML VIAL SUBCUT ×4 (08:48→20:23)
[2023-11-26] MEDS: Pantoprazole Sodium 40 MG/10 ML VIAL IVPUSH ×2 (08:48→17:53)
[2023-11-26] MEDS: Insulin Glargine,Hum.rec.anlog 100 UNIT/ML 10 ML VIAL 15 UNIT SUBCUT (08:49)
--- NOTE | 2023-11-26 09:15 | PC.NURSE ---
Patient reported nausea this morning with continued poor PO intake. Patient received sliding scale insulin due to fingerstick blood glucose and also received lantus. See MAR for details. Insulin administration approved by [employer]PA[employer] Tameka Pizano. Morning PO medications not yet administered due to reported nausea- Tameka Pizano aware. BP 152/64 and heart rate 83. LR continues to run at 100mL/hr. Patient has since tolerated one 4oz cranberry juice and had requested more juice. Patient drinking juice slowly. Patient making needs known appropriately.
--- NOTE | 2023-11-26 09:54 | HO.PM.IMPN ---
Subjective Subjective Date of Service: 11/26/23 Interval History: seen and examined this morning follow up for N/V, hyperglycemia no diarrhea Review of Systems Review of Systems: Yes all other systems are reviewed and are negative Constitutional Constitutional: Denies chills and Denies fever(s) Cardiovascular Cardiovascular: Denies chest pain, Denies palpitations and Denies dyspnea Respiratory Respiratory: Denies cough and Denies dyspnea Endocrine Endocrine: Denies palpitations Physical Exam Vital Signs: Vital Signs: Last Vital Signs Temp 97.9 F 11/26/23 07:14 Pulse 83 11/26/23 07:14 Resp 12 11/26/23 07:14 BP 152/64 H 11/26/23 07:14 Pulse Ox 98 11/26/23 07:14 O2 Del Method Room Air 11/26/23 07:14 BMI result Body Mass Index 41.0 Appearing in no acute distress lung sounds are clear to auscultation heart regular rate rhythm, clear S1, S2 positive bowel sounds, abdomen is soft, nontender neuro patient is alert x3, no focal deficits Objective Data Active Medications Amlodipine Besylate (Amlodipine Besylate 2.5 Mg Tablet) 7.5 mg PO DAILY [facility]; Protocol Last Admin: 11/25/23 07:59 Dose: 7.5 mg Documented By: GÓMEZ Dextrose (Dextrose 50 % 25 Gm/50 Ml Syringe) 25 gm IVPUSH Q15M PRN; Protocol PRN Reason: per Hypoglycemia Standing Ord. Glucose (Glucose Gel 15 Gm Gel..Gram.) 15 gm PO Q15M PRN; Protocol PRN Reason: per Hypoglycemia Standing Ord. Heparin Sodium (Porcine) (Heparin Sodium,Porcine 5,000 Unit/Ml Vial) 5,000 unit SUBCUT Q8H [facility] Last Admin: 11/26/23 08:48 Dose: 5,000 unit Documented By: GENOVEVA Hydralazine HCl (Hydralazine Hcl 20 Mg/Ml Vial) 5 mg IVPUSH Q6H PRN; Protocol PRN Reason: SBP >180 Lactated Ringer's (Lr) 1,000 mls @ 100 mls/hr IVCONT .Q10H [facility] Last Admin: 11/26/23 08:48 Dose: 100 mls/hr Documented By: GENOVEVA Insulin Glargine (Insulin Glargine,Hum.Rec.Anlog 100 Unit/Ml 10 Ml Vial) 15 unit SUBCUT DAILY [facility] Last Admin: 11/26/23 08:49 Dose: 15 unit Documented By: GENOVEVA Comments: Provider okayed administration. IV fluids running. Insulin Human Lispro (Insulin Lispro 100 Unit/Ml 3 Ml Vial) 0 unit SUBCUT QIDACHS [facility]; Protocol Last Admin: 11/26/23 08:48 Dose: 8 unit Documented By: GENOVEVA Lisinopril (Lisinopril 5 Mg Tablet) 5 mg PO DAILY [facility]; Protocol Last Admin: 11/25/23 07:58 Dose: 5 mg Documented By: GÓMEZ Lorazepam (Lorazepam 2 Mg/Ml Vial) 0.5 mg IVPUSH Q6H PRN PRN Reason: Anxiety Last Admin: 11/26/23 04:58 Dose: 0.5 mg Documented By: GERRI Methadone HCl (Methadone Hcl 20 Mg/2 Ml Oral.Conc) 100 mg PO DAILY [facility] Last Admin: 11/25/23 09:03 Dose: 100 mg Documented By: GÓMEZ Ondansetron HCl (Ondansetron Hcl 4 Mg/2 Ml Vial) 4 mg IVPUSH Q6H PRN PRN Reason: Nausea and Vomiting Last Admin: 11/26/23 00:14 Dose: 4 mg Documented By: GERRI Pantoprazole Sodium (Pantoprazole Sodium 40 Mg/10 Ml Vial) 40 mg IVPUSH DAILY [facility] Last Admin: 11/26/23 08:48 Dose: 40 mg Documented By: GENOVEVA Sodium Chloride (0.9 % Sodium Chloride Flush 3 Ml Syringe) 3 ml IVFLUSH QSHIFT [facility] Last Admin: 11/26/23 08:03 Dose: Not Given Documented By: GENOVEVA Non-Admin Reason: IV Running Labs 11/25/23 09:05 11/25/23 09:05 Labs: Laboratory Results - last 24 hr 11/25/23 11/25/23 11/25/23 09:05 11:25 16:05 MCV 78.5 L MCH 26.3 L MCHC 33.5 RDW 13.2 Plt Count 378 MPV 8.6 L Immature Gran % (Auto) 1.5 H Neut % (Auto) 82.7 H Lymph % (Auto) 12.1 L [place] % (Auto) 3.4 Eos % (Auto) 0.1 Baso % (Auto) 0.2 Lymph # (Auto) 1.5 [place] # (Auto) 0.4 Eos # (Auto) 0.0 Baso # (Auto) 0.0 Abs Immat Gran (auto) 0.19 H Absolute Neuts (auto) 10.5 H Absolute Nucleated RBC 0.000 Nucleated RBC % (auto) 0.0 Smear Tech's Comments VERIFIED POC Glucose 285 H 262 H 11/25/23 11/26/23 20:03 07:17 MCV MCH MCHC RDW Plt Count MPV Immature Gran % (Auto) Neut % (Auto) Lymph % (Auto) [place] % (Auto) Eos % (Auto) Baso % (Auto) Lymph # (Auto) [place] # (Auto) Eos # (Auto) Baso # (Auto) Abs Immat Gran (auto) Absolute Neuts (auto) Absolute Nucleated RBC Nucleated RBC % (auto) Smear Tech's Comments POC Glucose 231 H 266 H Assessment and Plan (1) Intractable cyclical vomiting: Status: Acute (2) Acute hyperglycemia: Status: Acute Plan 38 year old woman with PMHx cyclic vomiting syndrome, DM, HTN and gallbladder sludge who presented with N/V found to have elevated blood sugar Nausea and vomiting possibly due to cyclic vomiting syndrome vs hyperglycemia still with vomiting this am. no abdominal pain, non-tender on exam continue clear liquids abdominal US showing GB sludge similar to previous in 01/2023, no evidence of acute cholecystitis, LFTs wnl GI consult pending uncontrolled HTN due to medication noncompliance received 1 dose of labetalol 10 mg IV Restarted previous home meds amlodipine and lisinopril IV hydralazine prn follow BP Type 2 diabetes mellitus with hyperglycemia due to medication noncompliance No DKA HbA1c 13.4 Started on Lantus and insulin sliding scale, will likely need to be uptitrated as diet is advanced Morbid obesity BMI 41.1 kg/m2 Weight loss encouraged OUD continue methadone seen by Addiction medicine team - resourced provided DVT prophylaxis: Heparin subcut Code status: Full attending - Dr. Greenwood Requires ongoing in patient stay for cyclic vomiting syndrome and uncontrolled diabetes treatment with antiemetic therapy, IV fluids, antiemetic therapy + close monitoring of blood glucose and vital signs. Quality Stroke Does the patient have a stroke diagnosis?: No VTE Prior VTE?: No VTE Risk Level:: Medical - moderate - high VTE Device Contraindication: Treatment Not Indicated VTE Drug Contraindication: Treatment Not Indicated
[2023-11-26 10:50] VITALS: BP 156/70; PULSE 73; RESP 20; O2SAT 97
[2023-11-26] MEDS: amLODIPine Besylate 2.5 MG TABLET 7.5 MG PO (10:53)
[2023-11-26] MEDS: methADONE HCl 20 MG/2 ML ORAL.CONC 100 MG PO (10:53)
[2023-11-26] MEDS: lisinopriL 5 MG TABLET PO (10:53)
[2023-11-26 11:10] LABS: Glucose, Whole Blood 217 mg/dL (60-115)
--- NOTE | 2023-11-26 11:21 | HO.WOUND ---
Wound Consult: Initial 38yr old?female admitted to [facility] on 11/22 - See progress notes and H&P for detailed history.? Wound consult placed for Left upper arm wound secondary to IV drug injection site.? Patient agreeable to assessment and photo documentation - she remained very sleepy during my consultation but was able to reports she continues to inject into the site. She was not awake enough to educate on the benefit of not injecting into the site or to inform her of community resources such as [employer] at time of d/c for wound care and supplies. ?Left Upper Arm Etiology: Ulceration - secondary to IVDU Injection site Measurements: 3cm x 5cm x 1.5cm Wound Bed: [place] with adherent yellow slough Drainage / Odor: No odor appreciated at the time of my consult - creamy yellow holley drainage noted on dressing and on wound bed Edges: ? irregular and nonadherent [place] wound: [place] red blanchable erythema - scar tissue with irregular healing formation - No Induration, Fluctuance noted Pain: Denies at the time of my assessment Goals of Treatment: ? Moisture management with Durafiber AG Recommendations: 1. Turn and Reposition every 2 hours and as needed for patient comfort.? Use pillows or wedges to support off loading positions. 2. Off Load all bony prominences with use of pillows and heel boots if needed.? Apply Preventative foams where needed. ? 3. Provide adequate and supplemental nutrition - Nutrition following.? 4. Maintain blood glucose levels per Providers order. 5. Left Upper Arm - Cleanse and irrigate with cleanser such as NS or wound cleanser, Pat dry. Apply skin prep to periwound, lightly pack wound bed with Durafiber AG, cover with Foam dressing change every other day. Re-consult wound care Nurse for wound deterioration or wound changes.
[2023-11-26 15:29] VITALS: BP 131/63; PULSE 70; RESP 18; TEMP 36.6; O2SAT 95
--- NOTE | 2023-11-26 16:00 | MHC.CM.PN ---
per rounds pt not ready for dc has nausea and vomiting
[2023-11-26 16:21] LABS: Glucose, Whole Blood 251 mg/dL (60-115)
--- NOTE | 2023-11-26 17:38 | P.EN_ITS ---
Event Note Date of Service: 11/26/23 Event Note: GI Consult-Full note dictated Imp: Suspect her N/V is multifactorial due to possible component of underlying diabetic gastroparesis with an exacerbation in relation to her poorly controlled diabetes on admsission, chronic marijuana use, GERD, and a possible gastro enteritis. I don't think she is having any clinical evidence of gallbladder disease given her denial of any upper abdominal pain and a benign abdominal exam despite the finding of some sludge in the GB and a depressed GB ejection fraction on a previous HIDA scan. She currently reports that she is feeling somewhat better and has been tolerating clear liquids thus far. She feels hungry and hopes to try some solid food tomorrow. Rec: Continue supportive care. I increased her IV PPI to BID and have made her Zofran a standing order to hopefully keep things stable and allow her to be able to progress with her diet. I don't think she needs an upper endoscopy at this time. We did review the need to maximize her diabetes control. We did review potential signs of GB disease and the need to seek a surgical referral for that as needed. Please call me if I can be of any further assistance. D/W patient in detail and she is comfortable with this plan. Thanks. Time Spent With Patient Time: Total time managing care of this patient today ____ minutes.
[2023-11-26 19:21] VITALS: BP 145/83; PULSE 79; RESP 18; TEMP 36.6; O2SAT 99
[2023-11-26 20:07] LABS: Glucose, Whole Blood 312 mg/dL (60-115)
[2023-11-27] VITALS: BP 119/91; PULSE 90; RESP 18; TEMP 36.8; O2SAT 97
[2023-11-27] MEDS: Heparin Sodium,Porcine 5,000 UNIT/ML VIAL 5000 UNIT SUBCUT ×3 (00:02→17:04)
[2023-11-27] MEDS: ondansetron HCL 4 MG/2 ML VIAL IVPUSH ×4 (00:02→17:04)
--- NOTE | 2023-11-27 04:00 | CONS_ITS ---
DATE OF SERVICE: 11/26/2023 REASON FOR CONSULTATION: Nausea and vomiting. HISTORY OF PRESENT ILLNESS: Patient is a 38-year-old female admitted here 3 days ago for persistent nausea and vomiting. The patient describes that she was in her usual state of health up until about 2 days prior to admission when she developed the onset of nausea and vomiting. This persisted and ultimately worsened to the point where she had to come to the ER. The patient does describe previous history of these episodes in the past, but in between the episodes, she reports that she does not have any chronic upper GI complaints. She unfortunately has a history of active IV drug use involving heroin, which she used just prior to the admission. She has underlying diabetes mellitus, which has been poorly controlled as she has not been able to keep up with her regular medication. Over the past few days, she really has not had any abdominal pain other than some mild soreness in the upper abdomen from the retching and vomiting. She denies any preceding history of abdominal pain. She has not noticed any jaundice. She denies any hematemesis nor coffee-grounds emesis. She denies any associated diarrhea. She has not noticed any hematochezia nor melena. She denies any fevers, nor weight loss. She has not noticed any yellow jaundice in her eyes nor with darkened urine. She denies a history of ulcer disease in herself nor family members. She does have occasional heartburn, but does not take any medication for that on a regular basis. She denied the use of any chronic NSAIDs. She does smoke marijuana fairly regularly, but denies any chronic tobacco use. She denies any significant alcohol use. MEDICATIONS: At home include amlodipine, insulin, lisinopril, and methadone. Her medications here in the hospital include amlodipine, hydralazine, insulin, lisinopril, lorazepam p.r.n., methadone, Zofran 4 mg IV every 6 hours p.r.n., and pantoprazole 40 mg IV daily. PAST MEDICAL HISTORY: Hypertension, insulin-dependent diabetes mellitus, substance abuse. She denies history of [place], stroke, lung disease, nor renal disease. PAST SURGICAL HISTORY: She denies any surgeries. SOCIAL HISTORY: As above. FAMILY HISTORY: Noncontributory. REVIEW OF SYSTEMS: CONSTITUTIONAL: She has been feeling poorly at home prior to coming to the hospital with poor appetite and fatigue. CARDIAC: No chest pain. PULMONARY: No coughing or hemoptysis. GI: As above. URINARY: No dysuria. No hematuria. NEUROLOGIC: No headache or seizures. PHYSICAL EXAMINATION: GENERAL: The patient is a pleasant, alert, comfortable, appearing female, in no distress. She answers questions appropriately and is cooperative. She is currently having a liquid diet as we are speaking with each other. NECK: Supple. CHEST: Clear. CARDIAC: Normal S1, S2. ABDOMEN: Soft, nondistended, nontender without mass. No organomegaly. LABORATORY DATA: She did have an abdominal ultrasound on this admission describing some hepatomegaly consistent with a fatty liver, but no evidence of any liver mass nor biliary disease. The portal vein appeared patent with normal flow. Gallbladder appeared to be distended and had some sludge, but there was no sign of any gallbladder wall edema nor any surrounding fluid. The common bile duct was between 7 and 8 mm. There was no ascites. She did have a HIDA scan in January 2023, describing 0% ejection fraction at 30 minutes. White blood cell count today is 12.6, hemoglobin 11.9, platelets 278,000. PT 13.7 and INR 1.1. Sodium 132, potassium 3.7, chloride 101, CO2 of 21. Her blood sugars have been elevated as high as approximately 400. A liver profile was completely normal. Albumin 3.6. Lipase 18. IMPRESSION: Given the patient's clinical history, I do suspect she probably has a component of some diabetic-induced gastroparesis given her poorly-controlled diabetes. I suspect when her diabetes gets even more out of control then her gastroparesis symptoms will become more pronounced with associated nausea and vomiting. I suspect this may be multifactorial as well in relation not only to gastroparesis, but also to chronic marijuana use, some gastroesophageal reflux, and perhaps even a viral gastroenteritis component. Despite the findings on her gallbladder studies, both currently and in the past, I do not think she is having any active gallbladder disease given no reported pain in the abdomen and a very benign exam at the present time. At this point, given what she describes as some improvement with tolerating a liquid diet, I do not think she requires an upper endoscopy. I advised her that I would recommend continuing supportive care, including increasing her IV PPI to b.i.d. and making her Zofran a standing order to be given at around mealtime and bedtime. I think it would be important to maximally treat her to allow her diet to progress and hopefully avoid any setbacks in regard to recurrent vomiting. At this point, I do not think she needs an upper endoscopy given no worrisome symptoms such as bleeding. I did review with her the need to maximally control her diabetes both for her overall health and in regard to the history of vomiting. We did review potential signs and symptoms of gallbladder disease and the need to seek a surgical referral if that was to happen. At this point hopefully continued supportive care will help keep things stable. If so, I would then advance her diet in the next 24 hours. This has all been discussed with the patient in detail and she is comfortable with the plan. Thank you for the consultation. MD JEANETTE Carrillo/KRUNAL / [id number] MTDD
[2023-11-27] MEDS: Lactated Ringers 1,000 ML 100 ML IVCONT (05:24)
[2023-11-27] MEDS: Pantoprazole Sodium 40 MG/10 ML VIAL IVPUSH ×2 (05:24→15:42)
[2023-11-27 07:44] LABS: Glucose, Whole Blood 300 mg/dL (60-115)
[2023-11-27 08:00] VITALS: BP 149/87; PULSE 75; RESP 16; TEMP 36.5; O2SAT 94
[2023-11-27] MEDS: Insulin Glargine,Hum.rec.anlog 100 UNIT/ML 10 ML VIAL 15 UNIT SUBCUT (08:33)
[2023-11-27] MEDS: Insulin Lispro 100 UNIT/ML 3 ML VIAL SUBCUT ×4 (08:33→20:30)
[2023-11-27] MEDS: amLODIPine Besylate 2.5 MG TABLET 7.5 MG PO (08:34)
[2023-11-27] MEDS: lisinopriL 5 MG TABLET PO (08:34)
--- NOTE | 2023-11-27 09:06 | HO.PM.IMPN ---
Subjective Subjective Date of Service: 11/27/23 Interval History: seen and examined this morning follow up for N/V, hyperglycemia feeling better no diarrhea Review of Systems Review of Systems: Yes all other systems are reviewed and are negative Constitutional Constitutional: Denies chills and Denies fever(s) Cardiovascular Cardiovascular: Denies chest pain, Denies palpitations and Denies dyspnea Respiratory Respiratory: Denies cough and Denies dyspnea Endocrine Endocrine: Denies palpitations Physical Exam Vital Signs: Vital Signs: Last Vital Signs Temp 97.7 F 11/27/23 08:00 Pulse 75 11/27/23 08:00 Resp 16 11/27/23 08:00 BP 149/87 H 11/27/23 08:00 Pulse Ox 94 11/27/23 08:00 O2 Del Method Room Air 11/27/23 08:00 BMI result Body Mass Index 41.0 Appearing in no acute distress lung sounds are clear to auscultation heart regular rate rhythm, clear S1, S2 positive bowel sounds, abdomen is soft, nontender neuro patient is alert x3, no focal deficits Objective Data Active Medications Amlodipine Besylate (Amlodipine Besylate 2.5 Mg Tablet) 7.5 mg PO DAILY [facility]; Protocol Last Admin: 11/27/23 08:34 Dose: 7.5 mg Documented By: GENOVEVA Dextrose (Dextrose 50 % 25 Gm/50 Ml Syringe) 25 gm IVPUSH Q15M PRN; Protocol PRN Reason: per Hypoglycemia Standing Ord. Glucose (Glucose Gel 15 Gm Gel..Gram.) 15 gm PO Q15M PRN; Protocol PRN Reason: per Hypoglycemia Standing Ord. Heparin Sodium (Porcine) (Heparin Sodium,Porcine 5,000 Unit/Ml Vial) 5,000 unit SUBCUT Q8H [facility] Last Admin: 11/27/23 08:34 Dose: 5,000 unit Documented By: GENOVEVA Hydralazine HCl (Hydralazine Hcl 20 Mg/Ml Vial) 5 mg IVPUSH Q6H PRN; Protocol PRN Reason: SBP >180 Lactated Ringer's (Lr) 1,000 mls @ 100 mls/hr IVCONT .Q10H [facility] Last Admin: 11/27/23 05:24 Dose: 100 mls/hr Documented By: GERRI Insulin Glargine (Insulin Glargine,Hum.Rec.Anlog 100 Unit/Ml 10 Ml Vial) 15 unit SUBCUT DAILY [facility] Last Admin: 11/27/23 08:33 Dose: 15 unit Documented By: GENOVEVA Insulin Human Lispro (Insulin Lispro 100 Unit/Ml 3 Ml Vial) 0 unit SUBCUT QIDACHS [facility]; Protocol Last Admin: 11/27/23 08:33 Dose: 8 unit Documented By: GENOVEVA Lisinopril (Lisinopril 5 Mg Tablet) 5 mg PO DAILY [facility]; Protocol Last Admin: 11/27/23 08:34 Dose: 5 mg Documented By: GENOVEVA Lorazepam (Lorazepam 2 Mg/Ml Vial) 0.5 mg IVPUSH Q6H PRN PRN Reason: Anxiety Last Admin: 11/26/23 04:58 Dose: 0.5 mg Documented By: GERRI Methadone HCl (Methadone Hcl 20 Mg/2 Ml Oral.Conc) 100 mg PO DAILY [facility] Last Admin: 11/26/23 10:53 Dose: 100 mg Documented By: GENOVEVA Ondansetron HCl (Ondansetron Hcl 4 Mg/2 Ml Vial) 4 mg IVPUSH Q6H [facility] Last Admin: 11/27/23 05:24 Dose: 4 mg Documented By: GERRI Pantoprazole Sodium (Pantoprazole Sodium 40 Mg/10 Ml Vial) 40 mg IVPUSH BID@0630,1630 [facility] Last Admin: 11/27/23 05:24 Dose: 40 mg Documented By: GERRI Sodium Chloride (0.9 % Sodium Chloride Flush 3 Ml Syringe) 3 ml IVFLUSH QSHIFT [facility] Last Admin: 11/27/23 08:31 Dose: Not Given Documented By: GENOVEVA Non-Admin Reason: IV Running Labs 11/25/23 09:05 11/25/23 09:05 Labs: Laboratory Results - last 24 hr 11/26/23 11/26/23 11/26/23 11:03 16:08 19:23 POC Glucose 217 H 251 H 312 H 11/27/23 07:30 POC Glucose 300 H Assessment and Plan (1) Intractable cyclical vomiting: Status: Acute (2) Acute hyperglycemia: Status: Acute Plan 38 year old woman with PMHx cyclic vomiting syndrome, DM, HTN and gallbladder sludge who presented with N/V found to have elevated blood sugar Nausea and vomiting possibly due to cyclic vomiting syndrome vs hyperglycemia no abdominal pain, non-tender on exam abdominal US showing GB sludge similar to previous in 01/2023, no evidence of acute cholecystitis, LFTs wnl GI consult> schedule zofran Q6h, increase IV PPI to BID, no need for EGD at this time advance diet to full liquids Uncontrolled HTN due to medication noncompliance better today continue amlodipine and lisinopril IV hydralazine prn follow BP Type 2 diabetes mellitus with hyperglycemia due to medication noncompliance HbA1c 13.4 Lantus and insulin sliding scale Morbid obesity BMI 41.1 kg/m2 Weight loss encouraged OUD continue methadone seen by Addiction medicine team - resourced provided DVT prophylaxis: Heparin subcut Code status: Full attending - Dr. Greenwood Requires ongoing in patient stay for cyclic vomiting syndrome and uncontrolled diabetes treatment with antiemetic therapy, IV fluids, antiemetic therapy + close monitoring of blood glucose and vital signs. Quality Stroke Does the patient have a stroke diagnosis?: No VTE Prior VTE?: No VTE Risk Level:: Medical - moderate - high VTE Device Contraindication: Treatment Not Indicated VTE Drug Contraindication: Treatment Not Indicated
[2023-11-27] MEDS: methADONE HCl 20 MG/2 ML ORAL.CONC 100 MG PO (09:35)
[2023-11-27 11:12] LABS: Glucose, Whole Blood 257 mg/dL (60-115)
[2023-11-27 15:22] VITALS: BP 122/66; PULSE 84; RESP 16; TEMP 36.4; O2SAT 96
[2023-11-27] MEDS: 0.9 % Sodium Chloride Flush 3 ML SYRINGE IVFLUSH (15:42)
[2023-11-27 16:21] LABS: Glucose, Whole Blood 330 mg/dL (60-115)
[2023-11-27 20:14] LABS: Glucose, Whole Blood 233 mg/dL (60-115)
[2023-11-27 22:44] VITALS: BP 132/82; PULSE 80; RESP 16; TEMP 36.3; O2SAT 96
[2023-11-28] MEDS: ondansetron HCL 4 MG/2 ML VIAL IVPUSH ×5 (00:02→23:23)
[2023-11-28] MEDS: Heparin Sodium,Porcine 5,000 UNIT/ML VIAL 5000 UNIT SUBCUT ×4 (00:02→23:22)
[2023-11-28] MEDS: 0.9 % Sodium Chloride Flush 3 ML SYRINGE IVFLUSH ×4 (00:03→21:04)
[2023-11-28 02:31] VITALS: BP 142/84; PULSE 80; RESP 16; TEMP 36.2; O2SAT 98
[2023-11-28] MEDS: Pantoprazole Sodium 40 MG/10 ML VIAL IVPUSH ×2 (06:20→17:04)
[2023-11-28 07:07] VITALS: BP 147/83; PULSE 92; RESP 16; TEMP 36.8; O2SAT 96
[2023-11-28 07:37] LABS: Glucose, Whole Blood 311 mg/dL (60-115)
[2023-11-28] MEDS: Insulin Lispro 100 UNIT/ML 3 ML VIAL SUBCUT ×4 (08:18→21:04)
--- NOTE | 2023-11-28 09:10 | HO.PM.IMPN ---
Subjective Subjective Date of Service: 11/28/23 Interval History: seen and examined this morning follow up for N/V, hyperglycemia feeling better no diarrhea Review of Systems Review of Systems: Yes all other systems are reviewed and are negative Constitutional Constitutional: Denies chills and Denies fever(s) Cardiovascular Cardiovascular: Denies chest pain, Denies palpitations and Denies dyspnea Respiratory Respiratory: Denies cough and Denies dyspnea Endocrine Endocrine: Denies palpitations Physical Exam Vital Signs: Vital Signs: Last Vital Signs Temp 98.2 F 11/28/23 07:07 Pulse 92 11/28/23 07:07 Resp 16 11/28/23 07:07 BP 147/83 H 11/28/23 07:07 Pulse Ox 96 11/28/23 07:07 O2 Del Method Room Air 11/28/23 07:07 BMI result Body Mass Index 41.0 Appearing in no acute distress lung sounds are clear to auscultation heart regular rate rhythm, clear S1, S2 positive bowel sounds, abdomen is soft, nontender neuro patient is alert x3, no focal deficits Objective Data Active Medications Amlodipine Besylate (Amlodipine Besylate 2.5 Mg Tablet) 7.5 mg PO DAILY [facility]; Protocol Last Admin: 11/27/23 08:34 Dose: 7.5 mg Documented By: GENOVEVA Dextrose (Dextrose 50 % 25 Gm/50 Ml Syringe) 25 gm IVPUSH Q15M PRN; Protocol PRN Reason: per Hypoglycemia Standing Ord. Glucose (Glucose Gel 15 Gm Gel..Gram.) 15 gm PO Q15M PRN; Protocol PRN Reason: per Hypoglycemia Standing Ord. Heparin Sodium (Porcine) (Heparin Sodium,Porcine 5,000 Unit/Ml Vial) 5,000 unit SUBCUT Q8H [facility] Last Admin: 11/28/23 00:02 Dose: 5,000 unit Documented By: ALISSA Hydralazine HCl (Hydralazine Hcl 20 Mg/Ml Vial) 5 mg IVPUSH Q6H PRN; Protocol PRN Reason: SBP >180 Insulin Glargine (Insulin Glargine,Hum.Rec.Anlog 100 Unit/Ml 10 Ml Vial) 15 unit SUBCUT DAILY [facility] Last Admin: 11/27/23 08:33 Dose: 15 unit Documented By: GENOVEVA Insulin Human Lispro (Insulin Lispro 100 Unit/Ml 3 Ml Vial) 0 unit SUBCUT QIDACHS [facility]; Protocol Last Admin: 11/28/23 08:18 Dose: 10 unit Documented By: NATACHA Lisinopril (Lisinopril 5 Mg Tablet) 5 mg PO DAILY [facility]; Protocol Last Admin: 11/27/23 08:34 Dose: 5 mg Documented By: GENOVEVA Lorazepam (Lorazepam 2 Mg/Ml Vial) 0.5 mg IVPUSH Q6H PRN PRN Reason: Anxiety Last Admin: 11/26/23 04:58 Dose: 0.5 mg Documented By: GERRI Methadone HCl (Methadone Hcl 20 Mg/2 Ml Oral.Conc) 100 mg PO DAILY [facility] Last Admin: 11/27/23 09:35 Dose: 100 mg Documented By: GENOVEVA Ondansetron HCl (Ondansetron Hcl 4 Mg/2 Ml Vial) 4 mg IVPUSH Q6H [facility] Last Admin: 11/28/23 06:20 Dose: 4 mg Documented By: ALISSA Pantoprazole Sodium (Pantoprazole Sodium 40 Mg/10 Ml Vial) 40 mg IVPUSH BID@0630,1630 [facility] Last Admin: 11/28/23 06:20 Dose: 40 mg Documented By: ALISSA Sodium Chloride (0.9 % Sodium Chloride Flush 3 Ml Syringe) 3 ml IVFLUSH QSHIFT [facility] Last Admin: 11/28/23 00:03 Dose: 3 ml Documented By: PREETRISM Labs 11/25/23 09:05 11/25/23 09:05 Labs: Laboratory Results - last 24 hr 11/27/23 11/27/23 11/27/23 10:57 16:11 19:49 POC Glucose 257 H 330 H 233 H 11/28/23 07:19 POC Glucose 311 H Assessment and Plan (1) Intractable cyclical vomiting: Status: Acute (2) Acute hyperglycemia: Status: Acute Plan 38 year old woman with PMHx cyclic vomiting syndrome, DM, HTN and gallbladder sludge who presented with N/V found to have elevated blood sugar Nausea and vomiting possibly due to cyclic vomiting syndrome vs hyperglycemia no abdominal pain, non-tender on exam abdominal US showing GB sludge similar to previous in 01/2023, no evidence of acute cholecystitis, LFTs wnl GI consult> schedule zofran Q6h, increase IV PPI to BID, no need for EGD at this time advance to regular diet Uncontrolled HTN due to medication noncompliance better today continue amlodipine and lisinopril IV hydralazine prn follow BP Type 2 diabetes mellitus with hyperglycemia due to medication noncompliance HbA1c 13.4 Lantus and insulin sliding scale Morbid obesity BMI 41.1 kg/m2 Weight loss encouraged OUD continue methadone seen by Addiction medicine team - resourced provided DVT prophylaxis: Heparin subcut Code status: Full attending - Dr. Greenwood Requires ongoing in patient stay for cyclic vomiting syndrome and uncontrolled diabetes treatment with antiemetic therapy, IV fluids, antiemetic therapy + close monitoring of blood glucose and vital signs. Quality Stroke Does the patient have a stroke diagnosis?: No VTE Prior VTE?: No VTE Risk Level:: Medical - moderate - high VTE Device Contraindication: Treatment Not Indicated VTE Drug Contraindication: Treatment Not Indicated
[2023-11-28] MEDS: amLODIPine Besylate 2.5 MG TABLET 7.5 MG PO (09:48)
[2023-11-28] MEDS: lisinopriL 5 MG TABLET PO (09:48)
[2023-11-28] MEDS: Insulin Glargine,Hum.rec.anlog 100 UNIT/ML 10 ML VIAL 15 UNIT SUBCUT (09:49)
[2023-11-28] MEDS: methADONE HCl 20 MG/2 ML ORAL.CONC 100 MG PO (09:52)
[2023-11-28 11:11] LABS: Glucose, Whole Blood 284 mg/dL (60-115)
--- NOTE | 2023-11-28 12:45 | HO.WOUND ---
Wound Consult: Follow up 38yr old?female admitted to [facility] on 11/22 - See progress notes and H&P for detailed history.? Wound consult follow up for Left upper arm wound secondary to IV drug injection site.? Patient agreeable to assessment and photo documentation - she is tenativly planned for d/c to home and reports she has access to a shower and supplies. She reports she is able and comfortable to provide her own packing. Discharge topical wound care instrcutions provided in depth - she reports understanding and asked appropriate questions for understanding. She is aware of [facility] and understands she can continue to seek their help for wound care needs and assessment. Some supplies left with patient for time of d/c at home. ?Left Upper Arm Etiology: Ulceration - secondary to IVDU Injection site Measurements: 3cm x 5cm x 1.5cm Wound Bed: marbled wound bed with [place] with adherent yellow slough - mild odor noted when dressing removed - improving at todays assessment Drainage / Odor: Mild odor - creamy yellow holley drainage noted on dressing and on wound bed - irrigated and able to cleanse away most Edges: ? irregular and nonadherent Anna wound: [place] red blanchable erythema - scar tissue with irregular healing formation - No Induration, Fluctuance noted Pain: Denies at the time of my assessment Goals of Treatment: ? Moisture management with Durafiber AG No new topical recommendations at this time. Recommendations: 1. Turn and Reposition every 2 hours and as needed for patient comfort.? Use pillows or wedges to support off loading positions. 2. Off Load all bony prominences with use of pillows and heel boots if needed.? Apply Preventative foams where needed. ? 3. Provide adequate and supplemental nutrition - Nutrition following.? 4. Maintain blood glucose levels per Providers order. 5. Left Upper Arm - Cleanse and irrigate with cleanser such as NS or wound cleanser, Pat dry. Apply skin prep to periwound, lightly pack wound bed with Durafiber AG, cover with Foam dressing change every other day. Continue to seek topical care and treatment with [facility]. Re-consult wound care Nurse for wound deterioration or wound changes.
--- NOTE | 2023-11-28 14:39 | MHC.CM.PN ---
per rounds pt is clse to dc plan remains home
[2023-11-28 15:41] VITALS: BP 119/79; PULSE 84; RESP 16; TEMP 36.6; O2SAT 98
[2023-11-28 16:30] LABS: Glucose, Whole Blood 283 mg/dL (60-115)
[2023-11-28 19:28] VITALS: BP 117/55; PULSE 78; RESP 16; TEMP 36.1; O2SAT 97
[2023-11-28 19:40] LABS: Glucose, Whole Blood 234 mg/dL (60-115)
[2023-11-29 04:00] VITALS: BP 144/68; PULSE 73; RESP 14; TEMP 36.2; O2SAT 94
[2023-11-29] MEDS: ondansetron HCL 4 MG/2 ML VIAL IVPUSH (06:16)
[2023-11-29] MEDS: Pantoprazole Sodium 40 MG/10 ML VIAL IVPUSH (06:16)
[2023-11-29 07:17] LABS: Glucose, Whole Blood 264 mg/dL (60-115)
[2023-11-29 07:31] VITALS: BP 150/77; PULSE 64; RESP 12; TEMP 36.4; O2SAT 96
[2023-11-29] MEDS: amLODIPine Besylate 2.5 MG TABLET 7.5 MG PO (08:02)
[2023-11-29] MEDS: Heparin Sodium,Porcine 5,000 UNIT/ML VIAL 5000 UNIT SUBCUT (08:03)
[2023-11-29] MEDS: lisinopriL 5 MG TABLET PO (08:03)
[2023-11-29] MEDS: Insulin Glargine,Hum.rec.anlog 100 UNIT/ML 10 ML VIAL 15 UNIT SUBCUT (08:03)
[2023-11-29] MEDS: 0.9 % Sodium Chloride Flush 3 ML SYRINGE IVFLUSH (08:03)
[2023-11-29] MEDS: Insulin Lispro 100 UNIT/ML 3 ML VIAL SUBCUT ×2 (08:03→11:57)
[2023-11-29] MEDS: methADONE HCl 20 MG/2 ML ORAL.CONC 100 MG PO (08:11)
--- NOTE | 2023-11-29 10:20 | PM.DS ---
DS: Providers Provider Date of Service: 11/29/23 Date of admission: 11/23/23 23:59 Date of discharge: 11/29/23 Primary care physician: None Physician Consults: 11/24/23 04:25 Addiction Medicine Routine Consulting Provider: Addiction Covering Reason for consultation: IV drug use: Heroin Has provider been notified: No 11/24/23 04:50 Consult to Wound Care Routine Reason for consultation: left upper arm large injection site wound. 11/24/23 09:59 Consult to Wound Care Routine Reason for consultation: wound to L upper arm 11/26/23 08:21 Consult to Gastroenterology Routine Consulting Provider: Quinton Fitzgerald Reason for consultation: intractable nausea and vomiting Attending physician on discharge: Anthony Greenwood Discharging clinician: Samira Nagel DS: Diagnosis Discharge Diagnosis (1) Intractable cyclical vomiting: Status: Acute (2) Acute hyperglycemia: Status: Acute DS: Summary Hospital Course Hospital Course: From H&P on the day of admission Misty Schmitt is a 38 years old woman with PMHx significant for IVDU (heroin), gallbladder sludge, type 2 diabetes mellitus on insulin and hypertension presents to the emergency department complaining of nausea, vomiting and heartburn associated with anxiety since . She has not been using her insulin and hypertensive since August 2023. She denied any abdominal pain, diarrhea, headache, chest pain, shortness on breath, fever, chills or palpitation. She did not report any acute urinary symptoms. Last use of heroin was today. She also uses marijuana. Denies alcohol abuse. She has been evaluated in the emergency department in the past for similar symptoms and found to have cyclic vomiting syndrome. In the ED, she was found to have hypertension, last blood pressure is 166/92. Blood workup is remarkable for leukocytosis of 14.5. There is no anemia. Platelets are 416. Blood glucose is quite elevated and has been fluctuating between 411-354. There is no metabolic acidosis. Renal function and LFTs are normal. Beta hydroxybutyrate is 1.59. test is negative. Chart review abdominal pelvis CT scan - January 2023: Gallbladder is distended with mild layering dense material which may reflect stones or biliary sludge. Abdominal ultrasound January 2023: Distended gallbladder containing sludge with no finding of cholecystitis. Nausea and vomiting possibly due to cyclic vomiting syndrome vs hyperglycemia. abdominal US showing GB sludge similar to previous in 01/2023, no evidence of acute cholecystitis, LFTs wnl. no abdominal pain, non-tender on exam. Seen by GI, no need for EGD at this time. She was able to have diet advanced and is tolerating full diet. Uncontrolled HTN due to medication noncompliance Proved with resuming home amlodipine and lisinopril Type 2 diabetes mellitus with hyperglycemia due to medication noncompliance HbA1c 13.4. Started on Lantus and insulin sliding scale with improvement in blood sugar. she is comfortable checking her blood sugar. she will need close follow up on discharge. she will work on obtaining a PCP. OUD continue methadone seen by Addiction medicine team - resourced provided left arm wound chronic, present for several months. improving, no signs of infection. continue local wound care per wound care nurse. patient feels comfortable with providing wound care and will be sent home with some supplies. She feels the are is looking much better and [facility] able to obtain PCP. Time Attestation Total time managing care of this patient today: 38 mintues. Discharge Coordination Time (in mins): 38 Quality: Safe Use of Opioids Does Pt have an Active Cancer Diagnosis on the Problem List?: No Quality: Stroke Does the patient have a stroke diagnosis?: No Physical Exam Vital Signs: Vital Signs: Last Vital Signs Temp 97.5 F 11/29/23 07:31 Pulse 64 11/29/23 07:31 Resp 12 11/29/23 07:31 BP 150/77 H 11/29/23 07:31 Pulse Ox 96 11/29/23 07:31 O2 Del Method Room Air 11/29/23 07:31 BMI result Body Mass Index 41.0 Const: General: cooperative, comfortable, no acute distress, alert and awake Nutritional Appearance: overweight Orientation/consciousness: patient oriented x3 Resp: Effort & Inspection: normal respiratory effort, able to speak in complete sentences, no respiratory distress and no use of accessory muscles Cardio: Rate: regular rate GI: Inspection: No distended Palpation (GI): Soft to palpation and nontender Skin: Other: left arm chronic wound, with chronic scarring, no warmth or tenderness, no areas of fluctuance Neuro: General: patient oriented x3 DS: Data Data Completed and Pending Labs on day of discharge: Laboratory Results - last 24 hr 03/11/28/23 11/28/23 11:08 16:15 19:30 POC Glucose 284 H 283 H 234 H 11/29/23 07:09 POC Glucose 264 H Discharge Plan Discharge Anticipated Discharge Date/Time: 11/29/23 10:52 Patient Disposition: Home, Self-Care Discharge Diagnosis: Intractable nausea, vomiting Diabetes with hyperglycemia Uncontrolled hypertension Referrals: Physician,None [Primary Care Provider] - 1 Week Discharge Medications: New (DME) FreeStyle Lite Strips Strip Qty: 100 0RF Rx Instructions: Test four times a day or as directed. (DME) blood-glucose meter [FreeStyle Lite Meter] Kit Qty: 1 0RF Rx Instructions: As Directed alcohol swabs Pads, Medicated 1 pad TOPICAL QIDACHS Qty: 100 0RF Rx Instructions: Use four times a day or as directed. insulin lispro [Humalog KwikPen Insulin] 100 unit/mL insulin pen See Rx Instructions .ROUTE .COMPLEX MDD 30 Qty: 15 0RF Rx Instructions: Blood Sugar: <150 - 0 units 151-200 - 2 units 201-250 - 4 units 251-300 - 6 units 301-350 - 8 units >350 - 10 units insulin glargine [Lantus Solostar U-100 Insulin] 100 unit/mL (3 mL) insulin pen 15 unit SUBCUT DAILY Qty: 15 0RF (DME) pen needle, diabetic 32 gauge x 1/4 needle Qty: 100 0RF Rx Instructions: Use four times a day or as directed. (DME) lancets [FreeStyle Lancets] 28 gauge misc Qty: 100 0RF Rx Instructions: Test four times a day or as directed. Continued methadone 10 mg/mL Concentrate 100 mg PO DAILY Rx Instructions: [facility] amlodipine 5 mg tablet 7.5 mg PO DAILY 60 Days Qty: 90 0RF lisinopril 5 mg tablet 5 mg PO DAILY 60 Days Qty: 60 0RF Discontinued insulin lispro 100 unit/mL insulin pen See Protocol subcut USEASDIRECTD Qty: 10 0RF Protocol: Insulin Correction Scale Less than or equal to 110 ---- Give (units): 0 111 to 150 Give (units): 0 151 to 200 Give (units): 2 201 to 250 Give (units): 4 251 to 300 Give (units): 6 301 to 350 Give (units): 8 Greater than 350 Give (units): 10 Call MD if Blood Glucose > : 350 Rx Instructions: * Less than or equal to 110 ---- Give (units): 0 * 111 to 150 Give (units): 0 * 151 to 200 Give (units): 2 * 201 to 250 Give (units): 4 * 251 to 300 Give (units): 6 * 301 to 350 Give (units): 8 * Greater than 350 Give (units): 10 * Call MD if Blood Glucose > : 350 No Action (DME) FreeStyle Lite Strips Strip Qty: 100 0RF Rx Instructions: Test four times a day or as directed. Discharge Orders: Discharge Order (Routine); Ordered 11/29/23 Ordered By: Samira Nagel Activity on Discharge: As tolerated Stand Alone Forms: Patient Portal Discharge page, Work/School Release Activity Restrictions/Additional Instructions: Topical Wound Care Recommendations: Left Upper Arm - Cleanse and irrigate with cleanser such as NS or wound cleanser, Pat dry. Apply skin prep to periwound, lightly pack wound bed with Durafiber AG, cover with Foam dressing change every other day. Continue to seek topical care and treatment with [facility]. Care Plan Goals: see below Health Concerns: intractable nausea and vomiting uncontrolled DM uncontrolled blood pressure chronic LUE wound Plan of Treatment: resume taking lisinopril and norvasc for blood pressure take lantus and follow sliding scale for diabetes check blood sugar before meals and at bedtime local wound care for left arm as above. if fever develops or erythema, recommend go to nearest ED obtain PCP for close monitoring of blood pressure and blood sugar as soon as possible Assessment: see discharge summary
[2023-11-29 11:19] LABS: Glucose, Whole Blood 319 mg/dL (60-115)
--- NOTE | 2023-11-29 12:00 | MHC.CM.PN ---
PT WILL DC HOME TODAY WITH RESUMPTION OF [facility] AT [facility] IN [place] PT TO ARRANGE TRANSPORT
== END 2023-11-29 12:43 | disposition home or self-care (01) | DRG 420 ==
LOC: HO.ED 22:50 → HO.EDOVER 11-24 00:10 → HO.S3 11-24 02:27
PROVIDERS: Nurse Practitioner Acute Care; Admitting Provider Internal Medicine; Emergency Provider Emergency Medicine; Visit Provider Physician Assistant Medical
DX: E11.65 Type 2 diabetes mellitus with hyperglycemia (principal); E11.43 Type 2 diabetes mellitus with diabetic autonomic (poly)neuropathy; K31.84 Gastroparesis; E66.01 Morbid (severe) obesity due to excess calories; F11.20 Opioid dependence, uncomplicated; F19.20 Other psychoactive substance dependence, uncomplicated; T38.3X6A Underdosing of insulin and oral hypoglycemic [antidiabetic] drugs, initial encounter; T46.5X6A Underdosing of other antihypertensive drugs, initial encounter; I10 Essential (primary) hypertension; Z68.41 Body mass index [BMI] 40.0-44.9, adult; Z87.891 Personal history of nicotine dependence; Z79.4 Long term (current) use of insulin; Z79.899 Other long term (current) drug therapy
CPT/HCPCS: 36415; 76705; 80048; 80053; 80076; 80307; 81001; 82010; 82947; 83036; 83605; 83690; 83735; 84702; 85025; 85610; 99285; C9113; J0737; J1644; J1920; J2060; J2405; J2550; J2765; J7120

== ENCOUNTER → 2023-11-23 23:59 | Outpatient (BNV) | payer OTHER, SELFPAY | PROVIDERS: Admitting Provider Internal Medicine; Emergency Provider Emergency Medicine; Visit Provider Internal Medicine | DX: R11.15 Cyclical vomiting syndrome unrelated to migraine (principal); R73.9 Hyperglycemia, unspecified | CPT/HCPCS: 99223; 99232; 99239 ==

== ENCOUNTER 2024-02-20 20:55 | Inpatient (IN) | payer OTHER, SELFPAY ==
--- NOTE | ~2024-02-20 | CT_ITS ---
EXAMINATION: CT ABDOMEN AND PELVIS WITH CONTRAST CLINICAL INFORMATION: Cellulitis of left buttock. Evaluate for deep infection. COMPARISON: Abdomen ultrasound from 11/24/2023. Abdomen/pelvis CT from 01/03/2023. TECHNIQUE: Multidetector volumetric images were obtained from the superior aspect of the liver through the pubic symphysis following administration 85 mL of Omnipaque 350 intravenous contrast. Sagittal and coronal reformatted images were obtained on the technologist's workstation. Oral contrast: No This CT examination was performed using dose optimization techniques as appropriate, variously including the following: *Automated exposure control *Adjustment of mA and/or kV according to patient size (this includes techniques or standardized protocols for targeted exams where dose is matched to indication/reason for exam; i.e. extremities or head) *Use of iterative reconstruction technique DLP: 899 mGy-cm FINDINGS: LOCALIZER IMAGES: Obese body habitus. The right hemidiaphragm is chronically elevated. Normal bowel gas pattern. LUNG BASES: No pulmonary consolidation or pleural effusion. HEPATOBILIARY: There is hepatomegaly with right hepatic lobe measuring approximately 24 cm in craniocaudal dimension. The gallbladder chronically has a hydropic appearance and is 5.8 cm transverse diameter. No gallbladder wall edema or pericholecystic fluid. There are no visible radiopaque stones in the lumen of the gallbladder. The common duct is 0.8 cm diameter, unchanged compared to 11/24/2023. PANCREAS: No edema, pancreatic ductal dilatation or mass. SPLEEN: Chronically enlarged, 14.6 cm maximum dimension. No focal splenic lesion. ADRENAL GLANDS: 2.1 x 1.8 cm smoothly marginated nodule of the left adrenal gland has a density of 60 Hounsfield units on these contrast-enhanced images. It had density of -1 HU on noncontrast images from 01/10/2022, and 5 HU on 01/03/2023. Findings consistent with lipid rich adenoma. No adrenal imaging follow-up recommended. KIDNEYS AND URETERS: Kidneys have normal size and cortical thickness. No perinephric fluid collection, urolithiasis or hydroureteronephrosis. BLADDER: Normal. BOWEL AND PERITONEUM: Stomach and small bowel are unremarkable. No dilated loops. There are diverticula of the descending and sigmoid colon without evidence of diverticulitis. The appendix is normal. No overt colonic wall thickening or mesenteric fat stranding. No free fluid or pneumoperitoneum. ABDOMINAL WALL: Large body habitus. VASCULATURE: Abdominal aorta is normal in caliber and its branches are widely patent. LYMPH NODES: No pathologic sized lymph nodes within the abdomen. The largest left superficial inguinal lymph node is 1.1 cm in short axis dimension and a prominent lower left external iliac lymph node is 1.3 cm in short axis dimension. PELVIC VISCERA: No evidence of uterine or adnexal mass. No pelvic free fluid. MUSCULOSKELETAL/OTHER: 2.3 x 4 cm lipoma in subcutaneous tissue of the left lateral abdominal wall. Patchy appearance of fluid attenuation and edema in subcutaneous tissues of the left inferomedial gluteal region is partially included in the [id number]. No soft tissue gas. No evidence of abscess within the gluteus musculature. The heterogeneous area of fluid attenuation in the subcutaneous tissues measures up to at least 12 cm maximum dimension on the axial images. There is a hemangioma of the T12 vertebral body. No acute or suspicious osseous abnormality. CT/CT abdomen pelvis w IV con IMPRESSION: * Patchy fluid attenuation from abscess in subcutaneous tissues of the inferomedial left gluteal area is partially included in the [id number], and the edema in tissues is consistent with cellulitis. No soft tissue gas. * Chronic obesity and hepatomegaly. * Gallbladder chronically has a hydropic appearance, similar compared to 11/05/2022. * The mild left lower external iliac and inguinal lymphadenopathy is likely reactive to the infectious/inflammatory disease process. * Adenoma the left adrenal gland. * Diverticula of the descending and sigmoid colon without diverticulitis.
--- NOTE | ~2024-02-20 | XR_ITS ---
EXAMINATION: XR CHEST CLINICAL INFORMATION: Right IJ placement. COMPARISON: 01/03/2023 TECHNIQUE: Frontal view of the chest was obtained. FINDINGS: The lung volumes are low and the patient is rotated. The cardiomediastinal silhouette is within normal limits and stable. A right central line extends to the level of the mid SVC. There appears to be minimal atelectatic change at the lung bases. The lungs are otherwise clear. There is no pneumothorax. There is no significant pleural effusion. The bony structures and soft tissues are unremarkable XR/XR chest 1V IMPRESSION: Right central line extends to the level of the mid SVC. No pneumothorax. Low lung volumes and minimal bibasilar atelectasis in the setting of low lung volumes.
[2024-02-20 21:00] VITALS: BP 192/118; PULSE 12; O2SAT 96
[2024-02-20 21:05] VITALS: BP 189/98; PULSE 110; RESP 10; TEMP 36.7; O2SAT 98; BMI 40.5
[2024-02-20 21:07] LABS: Glucose, Whole Blood 366 mg/dL (60-115)
--- NOTE | 2024-02-20 21:35 | ED_ITS ---
HPI - General Adult General Chief complaint: General Medical Stated complaint: high blood sugar Time Seen by Provider: 02/20/24 21:01 Source: patient Mode of arrival: EMS History of Present Illness ED Provider: Dr Krishnamurthy HPI narrative: 38-year-old female with history of diabetes/hypertension and polysubstance use disorder states that she relapsed this afternoon and used heroin, states she ran out of medications as she has been unable to obtain a follow-up appointment with any primary care providers. Otherwise, she has no specific complaints at this time. Related Data Home Medications ?Medication ?Instructions ?Recorded ?Confirmed methadone 10 mg/mL oral concentrate 100 mg PO DAILY 01/10/22 11/24/23 Previous Rx's ?Medication ?Instructions ?Recorded blood sugar diagnostic (FreeStyle #100 ea 02/14/23 Lite Strips) alcohol swabs 1 pad topical QIDACHS #100 ea 11/29/23 amlodipine 5 mg tablet 7.5 mg (1.5 x 5 mg) PO DAILY 60 11/29/23 days #90 tabs blood sugar diagnostic (FreeStyle #100 ea 11/29/23 Lite Strips) blood-glucose meter (FreeStyle #1 ea 11/29/23 Lite Meter kit) insulin glargine 100 unit/mL (3 15 unit (0.15 mL) subcut DAILY #15 11/29/23 mL) subcutaneous pen (Lantus mL Solostar U-100 Insulin) insulin lispro 100 unit/mL See Rx Instructions .Route 11/29/23 subcutaneous pen (Humalog KwikPen .COMPLEX #15 mL (U-100) Insulin) lancets 28 gauge (FreeStyle #100 ea 11/29/23 Lancets) lisinopril 5 mg tablet 5 mg PO DAILY 60 days #60 tabs 11/29/23 pen needle, diabetic 32 gauge x #100 ea 11/29/23 1/ Allergies Allergy/AdvReac Type Severity Reaction Status Date / Time No Known Allergies Allergy Verified 02/20/24 21:08 Review of Systems 2 Review of Systems: Pertinent positives and negatives as stated in HPI [facility] Past Medical History Source: nursing notes reviewed Medical History PCOS (polycystic ovarian syndrome) Rash Polysubstance (excluding opioids) dependence, daily use Methadone maintenance therapy patient Anxiety and depression Diabetes Social History Social History Household Members: Children and Other Household Members Other:: daughter Housing: House Do you presently have visiting nurse or other home services: No Alcohol intake: current Alcohol intake frequency: does not drink Patient Tobacco Use Status: Former Tobacco user Tobacco use type: Cigarette Cigarette Packs Per Day: 3 Cigarettes Per Day: 60.0 Years Smoked: 2 Smoked in Last 30 Days: No e-Cigarette/Vaping Use: Never Used Use of substances other than those prescribed or required for medical reasons: Yes Substance Use Type: Heroin Substance Use Frequency: Chronic Longstanding Substance Use Frequency Other:: 4 Last Used Substance: Hours (ago) Advance Directives: Yes Advance Directives on File: Yes Advance Directives Date on File: 01/11/22 Do you have a plan to hurt others: No Plan service: No Current occupational status: unemployed Physical Exam ED Vital Signs: Vital Signs - 24 hr 02/20/24 21:05 02/20/24 23:13 02/20/24 23:57 Temperature 98.1 F Pulse Rate 110 H 115 H 113 H Respiratory Rate 10 L 18 Blood Pressure 189/98 H 192/109 H 175/96 H Pulse Oximetry 98 95 Oxygen Delivery Method Room Air Room Air BMI result Body Mass Index 40.5 VITAL SIGNS: Reviewed. GENERAL: Well developed, well nourished, in no acute distress. HEAD: Normocephalic/atraumatic EYES: PERRLA, EOMI EARS: Ext canals without abnormality NOSE: Nares patent bilateral OROPHARYNX: no oral lesions noted, posterior pharynx clear NECK: Supple, no adenopathy LUNGS: Normal breath sounds. No adventitious sounds or accessory muscle use. SpO2<98> CARDIOVASCULAR: Regular rate and rhythm without noted murmurs, no JVD or lower extremity edema. ABDOMEN: Soft, non-tender, non-distended with bowel sounds. MUSCULOSKELETAL: No tenderness, deformities, or effusions noted on gross inspection. EXTREMITIES: No cyanosis, clubbing or edema. SKIN: Inspection of the skin reveals no rashes NEUROLOGIC: Alert and oriented x 4. Strength and sensation to light touch were grossly intact x 4. Medications Administered Discontinued Medications Generic Name Dose Route Start Last Admin Trade Name Freq PRN Reason Stop Dose Admin Sodium Chloride 1,000 mls @ 999 mls/hr 02/20/24 21:30 02/20/24 23:14 Ns IV 02/20/24 22:30 999 mls/hr .Q1H1M NASH Administration Ceftriaxone Sodium 2 gm/ 50 mls @ 100 mls/hr 02/20/24 22:35 02/21/24 00:40 Sodium Chloride IV 02/20/24 23:04 100 mls/hr ONCE ONE Administration Insulin Human Regular 5 unit 02/20/24 22:38 02/20/24 23:44 Insulin Regular, Human 100 Unit/Ml 10 Ml Vial IVPUSH 02/20/24 22:39 5 unit ONCE ONE Administration Labetalol HCl 5 mg 02/20/24 23:24 02/20/24 23:57 Labetalol Hcl 100 Mg/20 Ml Vial IVPUSH 02/20/24 23:25 5 mg ONCE ONE Administration Procedures Central Line Placement Right IJ: Time Out Performed: No Patient Placed on Monitor/Pulse Ox: Yes MD Prep: mask, gown and gloves Central Line Prep: Chlorhexidine scrub and sterile drapes applied Local Anesthetic: lidocaine 1% Amount of anesthesia used (mL): 2 Ultrasound Used for Placement: Yes Central Line Lumen Inserted: triple Post Procedure: sutured in place, good blood return, all ports aspirated, flushed, capped and sterile dressing applied Post Procedure X-Ray: tip of catheter in good position and no pneumothorax seen Patient Tolerated Procedure: well Complications: none EJ/Peripheral Line Arm L: Time Out Performed: No Skin Cleansed in Sterile Fashion: Yes Size (gauge): 20 IV Secured and Dressing Applied: Yes Patient Tolerated Procedure: well Additional Comments: This peripheral line was placed under ultrasound guidance. Medical Decision Making Medical Decision Making [facility] Narrative: 2104: 38-year-old female with history and clinical presentation, DDX: Hyperglycemia without DKA or HHS, component of dehydration, no obvious ongoing nausea or vomiting at this time. I reviewed all investigations and hematologic indices are significant for leukocytosis and elevated platelet count as well as left shift and a stable microcytic anemia. This could be a component of hemoconcentration or stress response but given IVDA can not rule out possibility of infection. Chemistries indices significant for evidence of pseudohyponatremia secondary to hyperglycemia with evidence to suggest metabolic acidosis with a gap further suggesting DKA, no evidence of AUDREY. Beta hydroxybutyrate-3.96, beta hCG is undetectable. 2236: I suspect infection, lactic acid/blood cultures/2 g of Rocephin have been ordered, in addition I reviewed chemistry labs which are consistent with DKA. IV fluids started and patient started on DKA protocol. 2306: Delay in blood cultures/lactic acid and antibiotics secondary to challenging peripheral access. Able to get 20 gauge within left AC and will obtain additional line in right upper extremity. Getting lactic acid/blood cultures as well as giving antibiotics. Patient being started on insulin drip. IV infiltrated, a subsequent peripheral IV line placed under ultrasound guidance in the right AC with good blood return and flow, IV fluids were started, but given the need of various medications I placed a right IJ. Patient should now beginning remaining lab work/medications as well as continuing with hydration. 0058: I discussed case with Dr. Colin, inverform machine operator, who accepts patient for admission. Differential Diagnosis Differential Diagnoses: The differential diagnosis associated with the presentation includes Please see the discussion above Admission/Observation Consideration of admission/observation: Escalation of care including admission/observation considered Please see the discussion above Consult Healthcare Provider Management of the patient was discussed with: Compliance Monitor Please see the discussion above Lab Data MDM Lab Attestation statement: I reviewed the patient's lab results. Please see the discussion above 02/20/24 22:02 02/20/24 22:02 Labs: Lab Results 02/20/24 02/20/24 02/20/24 Range/Units 21:03 22:02 23:45 WBC 23.9 H (4.8-10.8) X10*3/uL RBC 4.66 (4.20-5.50) X10*6/uL Hgb 11.8 L (12.0-16.0) g/dl Hct 37.0 (37.0-47.0) % MCV 79.4 L (80.0-98.0) fL MCH 25.3 L (27.0-33.0) pg MCHC 31.9 (31.0-35.0) g/dl RDW 14.3 (11.0-16.0) % Plt Count 603 H D (160-400) X10*3/uL MPV 8.2 L (9.4-12.3) fL Immature Gran % (Auto) 1.8 H (0.0-0.4) % Neut % (Auto) 85.8 H (45-73) % Lymph % (Auto) 6.4 L (20-40) % [place] % (Auto) 5.5 (2-11) % Eos % (Auto) 0.0 (0-4) % Baso % (Auto) 0.5 (0-2) % Lymph # (Auto) 1.5 (1.2-4.9) X10*3/uL [place] # (Auto) 1.3 H (0.1-1.2) X10*3/uL Eos # (Auto) 0.0 (0.0-0.4) X10*3/uL Baso # (Auto) 0.1 (0.0-0.2) X10*3/uL Abs Immat Gran (auto) 0.43 H (0.00-0.03) X10*3/uL Absolute Neuts (auto) 20.5 H (2.0-8.3) x10*3/uL Absolute Nucleated RBC 0.000 (0.0-0.012) X10*3/uL Nucleated RBC % (auto) 0.0 (0.0-0.2) /100WBC Smear Tech's Comments VERIFIED VBG pH (7.32-7.43) VBG pCO2 mmHg VBG pO2 mmHg VBG HCO3 (22-26) mmol/L VBG O2 Saturation % VBG Base Excess mmol/L Sodium 133 L (135-145) mmol/L Potassium 3.7 (3.3-5.1) mmol/L Chloride 96 (96-108) mmol/L Carbon Dioxide 18 L (22-29) mmol/L Anion Gap 23 H (12-20) BUN 9 (9-16) mg/dL Creatinine 0.86 (0.5-1.4) mg/dL Estim Creat Clear Calc 122.6 Estimated GFR > 60 POC Glucose 366 H* 346 H (60-115) mg/dL Random Glucose 377 H* (60-115) mg/dL Lactic Acid (0.5-2.0) mmol/L Calcium 9.0 D (8.4-10.2) mg/dL Total Bilirubin 0.4 (0.0-1.0) mg/dL AST 13 (5-31) U/L ALT 8 (0-31) U/L Alkaline Phosphatase 136 H (39-117) U/L Total Protein 8.7 H (6.5-8.0) g/dL Albumin 3.1 L (3.5-5.0) g/dL Beta-Hydroxybutyrate 3.96 H (0.02-0.27) mmol/L Beta HCG, Quant < 2 mIU/mL 02/21/24 02/21/24 02/21/24 Range/Units 00:05 00:10 00:53 WBC (4.8-10.8) X10*3/uL RBC (4.20-5.50) X10*6/uL Hgb (12.0-16.0) g/dl Hct (37.0-47.0) % MCV (80.0-98.0) fL MCH (27.0-33.0) pg MCHC (31.0-35.0) g/dl RDW (11.0-16.0) % Plt Count (160-400) X10*3/uL MPV (9.4-12.3) fL Immature Gran % (Auto) (0.0-0.4) % Neut % (Auto) (45-73) % Lymph % (Auto) (20-40) % [place] % (Auto) (2-11) % Eos % (Auto) (0-4) % Baso % (Auto) (0-2) % Lymph # (Auto) (1.2-4.9) X10*3/uL [place] # (Auto) (0.1-1.2) X10*3/uL Eos # (Auto) (0.0-0.4) X10*3/uL Baso # (Auto) (0.0-0.2) X10*3/uL Abs Immat Gran (auto) (0.00-0.03) X10*3/uL Absolute Neuts (auto) (2.0-8.3) x10*3/uL Absolute Nucleated RBC (0.0-0.012) X10*3/uL Nucleated RBC % (auto) (0.0-0.2) /100WBC Smear Tech's Comments VBG pH 7.40 (7.32-7.43) VBG pCO2 34 mmHg VBG pO2 62 mmHg VBG HCO3 22 (22-26) mmol/L VBG O2 Saturation 89.0 % VBG Base Excess -2.0 mmol/L Sodium (135-145) mmol/L Potassium (3.3-5.1) mmol/L Chloride (96-108) mmol/L Carbon Dioxide (22-29) mmol/L Anion Gap (12-20) BUN (9-16) mg/dL Creatinine (0.5-1.4) mg/dL Estim Creat Clear Calc Estimated GFR POC Glucose 326 H (60-115) mg/dL Random Glucose (60-115) mg/dL Lactic Acid 0.9 (0.5-2.0) mmol/L Calcium (8.4-10.2) mg/dL Total Bilirubin (0.0-1.0) mg/dL AST (5-31) U/L ALT (0-31) U/L Alkaline Phosphatase (39-117) U/L Total Protein (6.5-8.0) g/dL Albumin (3.5-5.0) g/dL Beta-Hydroxybutyrate (0.02-0.27) mmol/L Beta HCG, Quant mIU/mL Radiology Impression Discussion of test interpretation with radiology: I have reviewed the radiologist's reading. Radiologist Impression: Please see the discussion above External Record Review External record reviewed: Outpatient record, Prior outpatient labs and Prior outpatient radiology Chronic Conditions Patient?s care impacted by: Diabetes and Hypertension Social Determinants Patient?s care significantly limited by Social Determinants of Health including: Alcoholism and drug addiction in family Critical Care Time Critical Care Time Critical Care Time: Yes Total Critical Care Time: 90 Attestation: I personally attest to this time spent taking care of the patient. Discharge Plan Discharge Clinical Impression: DKA (diabetic ketoacidosis), Dehydration Patient Disposition: Admitted As Inpatient
--- NOTE | 2024-02-20 22:06 | PC.NURSE ---
Patient difficulty stick, multiple attempts by three RNs, provider aware, ARTIFICIAL CANDY MAKER at bedside with US looking for a line presently.
[2024-02-20 22:07] LABS: Basophils Absolute Auto 0.1 X10*3/uL (0.0-0.2); Basophils Percent Auto 0.5 % (0-2); Hemoglobin 11.8 g/dl (12.0-16.0); Imm Gran Abs Auto 0.43 X10*3/uL (0.00-0.03); Imm Gran Pct Auto 1.8 % (0.0-0.4); Lymphocytes Absolute Auto 1.5 X10*3/uL (1.2-4.9); Lymphocytes Percent Auto 6.4 % (20-40); MANUAL DIFF FLAG SCAN; Mean Corpuscular HGB Conc 31.9 g/dl (31.0-35.0); Mean Corpuscular Hemoglobin 25.3 pg (27.0-33.0); Mean Corpuscular Volume 79.4 fL (80.0-98.0); Mean Platelet Volume 8.2 fL (9.4-12.3); Monocytes Absolute Auto 1.3 X10*3/uL (0.1-1.2); Monocytes Percent Auto 5.5 % (2-11); Neutrophils Absolute Auto 20.5 x10*3/uL (2.0-8.3); Neutrophils Percent Auto 85.8 % (45-73); Platelet Count 603 X10*3/uL (160-400); Red Blood Count 4.66 X10*6/uL (4.20-5.50); Red Cell Distribution Width 14.3 % (11.0-16.0); SCAN SMEAR FLAG 1; White Blood Count 23.9 X10*3/uL (4.8-10.8)
[2024-02-20 22:25] LABS: SLIDE REVIEW VERIFIED
[2024-02-20 22:33] LABS: Alanine Aminotransferase 8 U/L (0-31); Albumin Level 3.1 g/dL (3.5-5.0); Alkaline Phosphatase 136 U/L (39-117); Anion Gap 23 (12-20); Aspartate Amino Transferase 13 U/L (5-31); Beta-Hydroxybutyrate 3.96 mmol/L (0.02-0.27); Bilirubin Total 0.4 mg/dL (0.0-1.0); Blood Urea Nitrogen 9 mg/dL (9-16); Carbon Dioxide 18 mmol/L (22-29); Chloride 96 mmol/L (96-108); Creatinine Clr Calc Pharmacy 122.6; Estimated Glomerular Filt Rate > 60; Glucose Random 377 mg/dL (60-115); HCG Quantitative < 2 mIU/mL; Potassium 3.7 mmol/L (3.3-5.1); Sodium 133 mmol/L (135-145); Total Protein 8.7 g/dL (6.5-8.0)
--- NOTE | 2024-02-20 23:00 | PC.NURSE ---
Dr. Jones at bedside attempting to insert US guided IV, able to get 20 L FA, 1st of obtained, reported off to [place] RN, aware of difficult stick and additional labs needed.
[2024-02-20 23:13] VITALS: BP 192/109; PULSE 115; RESP 18; O2SAT 95
[2024-02-20] MEDS: 0.9 % Sodium Chloride 1,000 ML 999 ML IV (23:14)
--- NOTE | 2024-02-20 23:28 | PC.NURSE ---
Multiple failed attempts at IV access and/or blood draw for 2nd set of cultures, MD aware. ABX will be on hold until 2nd set can be drawn
[2024-02-20] MEDS: Insulin Regular, Human 100 UNIT/ML 10 ML VIAL IVPUSH (23:44)
[2024-02-20 23:48] LABS: Glucose, Whole Blood 346 mg/dL (60-115)
[2024-02-20 23:57] VITALS: BP 175/96; PULSE 113
[2024-02-20] MEDS: Labetalol HCL 100 MG/20 ML VIAL IVPUSH (23:57)
[2024-02-21] VITALS (15 sets, daily range): BP systolic 113–188; BP diastolic 77–91; PULSE 78–110; RESP 15–25; TEMP 36.3–37.1; O2SAT 93–99; BMI 40.9
[2024-02-21 00:14] LABS: Venous Blood Gas Refer to POC result
[2024-02-21 00:25] LABS: Lactic Acid 0.9 mmol/L (0.5-2.0)
[2024-02-21] MEDS: cefTRIAXone sodium 2 GM in 0.9 % Sodium Chloride 50 ML IV (00:40)
--- NOTE | 2024-02-21 00:51 | ECG_ITS ---
Test Reason : DKA Blood Pressure : / mmHG Vent. Rate : 109 BPM Atrial Rate : 109 BPM P-R Int : 120 ms QRS Dur : 088 ms QT Int : 338 ms P-R-T Axes : 040 -10 052 degrees QTc Int : 455 ms Sinus tachycardia Otherwise normal ECG When compared with ECG of 31-DEC-2022 16:52, Vent. rate has increased BY 51 BPM Referred By: Ann Krishnamurthy Electronically Signed By:Gonsalo Bedolla
[2024-02-21 00:54] LABS: VBG HCO3 22 mmol/L (22-26); VBG pCO2 34 mmHg; VBG pO2 62 mmHg
[2024-02-21 00:56] LABS: Glucose, Whole Blood 326 mg/dL (60-115)
[2024-02-21] MEDS: 0.9 % Sodium Chloride 1,000 ML 999 ML IV (01:17)
[2024-02-21] MEDS: Insulin Regular/NS 100 UNIT/100 ML PLAST..BAG 10 UNIT IVCONT (01:17)
[2024-02-21 01:32] LABS: Appearance Urine Clear; Color Urine Yellow; Glucose Urine UA >=1000 mg/dL (Negative); Leukocyte Esterase Urine Negative (Negative); Nitrite Urine Negative (Negative); PH 5.5 (5.0-9.0); Specific Gravity - Urine >= 1.030 (1.005-1.025); UMIC TRIGGER UACC YES; Urine Blood Large (3+) (Negative); Urine Ketones >=160 mg/dL (Negative); Urine Protein 30 (1+) mg/dL (Neg-Trace)
[2024-02-21 01:34] LABS: Bacteria Urine None Seen (None Seen); Squamous Epithelial Cell Urine 0-2 /HPF (0-2); WBC Urine 0-5 /HPF (0-5)
[2024-02-21] MEDS: Potassium Chloride/H20 10 MEQ/100 ML PIGGYBACK 100 MEQ IV (01:35)
[2024-02-21 01:44] LABS: Amphetamine Screen Urine Not Detected (Not Detect); Barbiturates, Urine Not Detected (Not Detect); Benzodiazepines Screen Urine Not Detected (Not Detect); Buprenorphine Scr Not Detected (Not Detect); Cannabinoid Screen Urine POSITIVE (Not Detect); Cocaine Screen Urine Not Detected (Not Detect); Fentanyl, urine POSITIVE (Not Detect); Methadone Screen, Urine Positive (Not Detect); Opiate Screen Urine POSITIVE (Not Detect); Oxycodone Screen Urine Not Detected (Not Detect); Phencyclidine Screen Urine Not Detected (Not Detect)
--- NOTE | 2024-02-21 01:44 | PM.CCHP ---
History of Present Illness Date of Service: 02/21/24 Attending physician on admission: Simba Colin Chief Complaint: High blood sugar The patient is a 38-year-old female with a past medical history of diabetes mellitus, hypertension? and polysubstance abuse? on methadone but relapsed? today and used heroin,? presented to the emergency department with complaints of high sugar.? Patient reports noncompliance with? blood pressure and diabetes medications due to not having a follow-up appointment any primary care provider.? ? In the emergency department patient hypertensive to 189/98 and tachycardic.? Afebrile and satting 98% on room air. ?? Laboratory data was significant for WBC 23.9, platelets 603,? serum bicarb 18, anion gap 23, glucose 377, albumin 3.1,? beta hydroxybutyrate 3.96 ??Venous blood gas:? 7.40/34/62/22 ? ED course:? ? Patient received 2 L bolus, ceftriaxone 2 g, 5 units IV push right leg insulin, labetalol 5 mg,? potassium chloride 40 mEq and started on insulin drip ? Patient will be admitted to ICU? for the hemodynamically monitoring of DKA? Review of Systems Review of Systems: Yes all other systems are reviewed and are negative PMFSH Past Medical History Medical History PCOS (polycystic ovarian syndrome) Rash Polysubstance (excluding opioids) dependence, daily use Methadone maintenance therapy patient Anxiety and depression Diabetes Social History Social History Household Members: Children Household Members Other:: daughter Housing: House Do you presently have visiting nurse or other home services: No Alcohol intake: current Alcohol intake frequency: does not drink Patient Tobacco Use Status: Former Tobacco user Tobacco use type: Cigarette Cigarette Packs Per Day: 3 Cigarettes Per Day: 60.0 Years Smoked: 2 Smoked in Last 30 Days: No e-Cigarette/Vaping Use: Never Used Use of substances other than those prescribed or required for medical reasons: Yes Substance Use Type: Heroin and Marijuana Substance Use Frequency: Daily Substance Use Frequency Other:: 4 Last Used Substance: Just Prior to Admission Currently Displaying Signs/Symptoms of Drug Intoxication Withdrawal: No Any prior treatment program specific to substance use: Yes Have you been hit, kicked, punched, or otherwise hurt by someone within the past year? If so, by whom?: No Do you feel safe in your current relationship?: No Current Relationship Is there a partner from a previous relationship who is making you feel unsafe now?: No Are you made to feel afraid or neglected: No Advance Directives: Yes Advance Directives on File: Yes Advance Directives Date on File: 01/11/22 Do you have a plan to hurt others: No Plan Recently lost weight without trying: Yes How much weight loss: 2-13 pounds Nutrition Risks: No Nutritional Risk Patient : No : No Poor oral hygiene: No service: No Current occupational status: unemployed Meds Allergies Allergy/AdvReac Type Severity Reaction Status Date / Time No Known Allergies Allergy Verified 02/20/24 21:08 Active Medications: Current Medications Amlodipine Besylate (Amlodipine Besylate 2.5 Mg Tablet) 7.5 mg PO DAILY NASH; Protocol Enoxaparin Sodium (Enoxaparin Sodium 40 Mg/0.4 Ml Syringe) 40 mg SUBCUT Q24H [facility] Insulin Human Regular (Myxredlin) 100 unit in 100 mls @ 10 mls/hr IVCONT .Q10H NASH; Protocol Last Admin: 02/21/24 01:17 Dose: 10 unit/hr, 10 mls/hr Dextrose (D10) 250 mls @ 750 mls/hr IV Q30M PRN PRN Reason: BG <70 Potassium Chloride (Potassium Chloride/H20) 10 meq in 100 mls @ 100 mls/hr IV Q1H NASH Stop: 02/21/24 02:44 Last Admin: 02/21/24 01:35 Dose: 100 mls/hr Lactated Ringer's (Lr) 1,000 mls @ 999 mls/hr IV .Q1H1M NASH Stop: 02/21/24 02:00 Albumin Human (Kedbumin 25 %) 100 mls @ 100 mls/hr IV Q1H NASH Stop: 02/21/24 03:44 Lisinopril (Lisinopril 5 Mg Tablet) 5 mg PO DAILY NASH; Protocol Home Medications ?Medication ?Instructions ?Recorded ?Confirmed ?Last Taken ?Type methadone 10 mg/mL oral concentrate 100 mg PO DAILY 01/10/22 11/24/23 11/22/23 09:00 History Physical Exam Vital Signs: Vital Signs: Last Vital Signs Temp 98.1 F 02/20/24 21:05 Pulse 110 H 02/21/24 01:39 Resp 16 02/21/24 01:39 BP 163/91 H 02/21/24 01:39 Pulse Ox 99 02/21/24 01:39 O2 Del Method Room Air 02/21/24 01:39 BMI result Body Mass Index 40.5 ?General:? Alert oriented x3 no acute distress.? Speaking full sentences.? Speech is well articulated, thought process is coherent.? Following all commands. ?HEENT:? Head is normocephalic, atraumatic, pupils equal round reactive to light accommodation bilaterally.? Extraocular movements appear intact.? Buccal mucosa is dry, Neck is supple ?Cardiac:? Sinus tach, Clear S1-S2, no murmurs rubs or gallops. ?Pulmonary:? Clear to auscultation, no wheezes, rales or rhonchi. ?Abdomen:? ?Abdomen soft, non-tender, non-distended. Normal bowel sounds. No pulsatile mass. No hepatosplenomegaly. ?Musculoskeletal:?Moving all 4 extremities upon request a major joints, there is no crepitus or tenderness.? The strength is 5/5 bilaterally and throughout all 4 extremities.? Gait not assessed at this point. ?Neurologic:? cranial nerves 2-12 are grossly intact.? No focal deficits noted.Motor strength as above.?? ?Skin:? Multiple track garcia in bilateral upper extremities. Bilateral lower extremity trace edema. Vascular:? 2+ pulses upper and lower extremities distally.? Results Labs 02/21/24 04:50 02/21/24 04:50 Labs: Laboratory Results - last 24 hr 02/20/24 02/20/24 02/20/24 21:03 22:02 23:45 MCV 79.4 L MCH 25.3 L MCHC 31.9 RDW 14.3 Plt Count 603 H D MPV 8.2 L Immature Gran % (Auto) 1.8 H Neut % (Auto) 85.8 H Lymph % (Auto) 6.4 L [place] % (Auto) 5.5 Eos % (Auto) 0.0 Baso % (Auto) 0.5 Lymph # (Auto) 1.5 [place] # (Auto) 1.3 H Eos # (Auto) 0.0 Baso # (Auto) 0.1 Abs Immat Gran (auto) 0.43 H Absolute Neuts (auto) 20.5 H Absolute Nucleated RBC 0.000 Nucleated RBC % (auto) 0.0 Smear Tech's Comments VERIFIED VBG pH VBG pCO2 VBG pO2 VBG HCO3 VBG O2 Saturation VBG Base Excess Anion Gap 23 H Estim Creat Clear Calc 122.6 Estimated GFR > 60 POC Glucose 366 H* 346 H Random Glucose 377 H* Lactic Acid Calcium 9.0 D Total Bilirubin 0.4 AST 13 ALT 8 Alkaline Phosphatase 136 H Total Protein 8.7 H Albumin 3.1 L Beta-Hydroxybutyrate 3.96 H Beta HCG, Quant < 2 Urine Color Urine Appearance Urine pH Ur Specific [place] Urine Protein Urine Glucose (UA) Urine Ketones Urine Blood Urine Nitrite Ur Leukocyte Esterase Urine RBC Urine WBC Ur Squamous Epith Cells Urine Bacteria Hyaline Casts 02/21/24 02/21/24 02/21/24 00:05 00:10 00:53 MCV MCH MCHC RDW Plt Count MPV Immature Gran % (Auto) Neut % (Auto) Lymph % (Auto) [place] % (Auto) Eos % (Auto) Baso % (Auto) Lymph # (Auto) [place] # (Auto) Eos # (Auto) Baso # (Auto) Abs Immat Gran (auto) Absolute Neuts (auto) Absolute Nucleated RBC Nucleated RBC % (auto) Smear Tech's Comments VBG pH 7.40 VBG pCO2 34 VBG pO2 62 VBG HCO3 22 VBG O2 Saturation 89.0 VBG Base Excess -2.0 Anion Gap Estim Creat Clear Calc Estimated GFR POC Glucose 326 H Random Glucose Lactic Acid 0.9 Calcium Total Bilirubin AST ALT Alkaline Phosphatase Total Protein Albumin Beta-Hydroxybutyrate Beta HCG, Quant Urine Color Urine Appearance Urine pH Ur Specific [place] Urine Protein Urine Glucose (UA) Urine Ketones Urine Blood Urine Nitrite Ur Leukocyte Esterase Urine RBC Urine WBC Ur Squamous Epith Cells Urine Bacteria Hyaline Casts 02/21/24 01:23 MCV MCH MCHC RDW Plt Count MPV Immature Gran % (Auto) Neut % (Auto) Lymph % (Auto) [place] % (Auto) Eos % (Auto) Baso % (Auto) Lymph # (Auto) [place] # (Auto) Eos # (Auto) Baso # (Auto) Abs Immat Gran (auto) Absolute Neuts (auto) Absolute Nucleated RBC Nucleated RBC % (auto) Smear Tech's Comments VBG pH VBG pCO2 VBG pO2 VBG HCO3 VBG O2 Saturation VBG Base Excess Anion Gap Estim Creat Clear Calc Estimated GFR POC Glucose Random Glucose Lactic Acid Calcium Total Bilirubin AST ALT Alkaline Phosphatase Total Protein Albumin Beta-Hydroxybutyrate Beta HCG, Quant Urine Color Yellow Urine Appearance Clear Urine pH 5.5 Ur Specific [place] >= 1.030 H Urine Protein 30 (1+) H Urine Glucose (UA) >=1000 H Urine Ketones >=160 Urine Blood Large (3+) H Urine Nitrite Negative Ur Leukocyte Esterase Negative Urine RBC 11-20 H Urine WBC 0-5 Ur Squamous Epith Cells 0-2 Urine Bacteria None Seen Hyaline Casts 3-5 Imaging Radiologist's Impressions: Impressions Chest X-Ray 02/21/24 00:46 IMPRESSION: Right central line extends to the level of the mid SVC. No pneumothorax. Low lung volumes and minimal bibasilar atelectasis in the setting of low lung volumes. Assessment and Plan (1) DKA (diabetic ketoacidosis): Status: Acute (2) Hypertension: Qualifiers: Hypertension type: primary hypertension Qualified Code(s): I10 - Essential (primary) hypertension Status: Acute (3) Dehydration: Status: Acute (4) Leukocytosis: Status: Acute (5) Cellulitis: Status: Acute Plan 38-year-old female with a past medical history of diabetes mellitus, hypertension? and polysubstance abuse relapse with heroin? prior to arrival to the emergency department and medication noncompliance? admitted to ICU for DKA Plan: Neuro:? no acute issues?? Cardiac:?? ?Hypertension:? has been off her p.o. Medications.? We will resume her home meds Pulmonary:? no acute issues?? Renal:? ?No acute issues GI:?? ?No acute issues Endo:?Diabetes mellitus /diabetic ketoacidosis- patient is on lispro and Lantus,? but has not been taking her medications.? Started on DKA protocol in the emergency department. ? continue insulin drip until her gap is close. Follow DKA protocol? ID:?Leukocytosis:? Likely from cellulitis of Left upper extremity, no evidence of severe sepsis,? lactic is negative, patient does not have any sign of infection.? Due to hx of substance abuse will cover with vancomycin and Zosyn. Blood cultures are pending Heme/Onc:? No acute issues. Psych:? No acute issues. Miscellaneous:? substance abuse,? she relapsed? prior to arrival to emergency department.? She is on methadone.? Will order drug screen.? Prophylaxis:? Lovenox CODE: FULL ?Does not qualify for critical care time
[2024-02-21 01:55] LABS: Anion Gap 22 (12-20); Blood Urea Nitrogen 9 mg/dL (9-16); Carbon Dioxide 19 mmol/L (22-29); Chloride 97 mmol/L (96-108); Creatinine Clr Calc Pharmacy 128.5; Estimated Glomerular Filt Rate > 60; Magnesium 1.6 mg/dL (1.6-2.6); Phosphorus 2.5 mg/dL (2.7-4.5); Potassium 3.6 mmol/L (3.3-5.1); Sodium 134 mmol/L (135-145)
[2024-02-21 01:58] LABS: Glucose Random 389 mg/dL (60-115)
--- NOTE | 2024-02-21 02:06 | PC.NURSE ---
Critical glucose relayed to ICU [facility] [employer], orders to decrease insulin drip from 10units/hr to 5units/hr.
[2024-02-21 02:12] LABS: Glucose, Whole Blood 330 mg/dL (60-115)
[2024-02-21] MEDS: Albumin Human 25 % 100 ML IV ×5 (02:49→20:18)
[2024-02-21] MEDS: Lactated Ringers 1,000 ML 150 ML IVCONT (02:49)
[2024-02-21] MEDS: Potassium Chloride/H20 40 MEQ/100 ML PIGGYBACK 100 MEQ IV (03:04)
[2024-02-21 03:19] LABS: Glucose, Whole Blood 329 mg/dL (60-115)
[2024-02-21 04:13] LABS: Glucose, Whole Blood 294 mg/dL (60-115)
[2024-02-21] MEDS: Potassium Phosphate/NS 15 MMOL/250 ML PLAST..BAG 62.5 MMOL IV ×2 (04:52→08:39)
[2024-02-21 04:57] LABS: VBG Base Excess 1.5 mmol/L; VBG HCO3 23 mmol/L (22-26); VBG pCO2 30 mmHg; VBG pO2 49 mmHg
[2024-02-21 05:06] LABS: Monocytes Absolute Auto 1.6 X10*3/uL (0.1-1.2); PLT CLUMP 1; SCAN SMEAR FLAG 1
[2024-02-21 05:06] LABS: Venous Blood Gas Refer to POC result
[2024-02-21 05:08] LABS: Basophils Absolute Auto 0.1 X10*3/uL (0.0-0.2); Basophils Percent Auto 0.4 % (0-2); Hemoglobin 9.1 g/dl (12.0-16.0); Imm Gran Abs Auto 0.56 X10*3/uL (0.00-0.03); Imm Gran Pct Auto 2.3 % (0.0-0.4); Lymphocytes Absolute Auto 1.3 X10*3/uL (1.2-4.9); Lymphocytes Percent Auto 5.5 % (20-40); MANUAL DIFF FLAG SCAN; Mean Corpuscular HGB Conc 32.5 g/dl (31.0-35.0); Mean Corpuscular Hemoglobin 25.3 pg (27.0-33.0); Mean Platelet Volume 9.7 fL (9.4-12.3); Monocytes Percent Auto 6.4 % (2-11); Neutrophils Absolute Auto 20.8 x10*3/uL (2.0-8.3); Neutrophils Percent Auto 85.4 % (45-73); Red Blood Count 3.59 X10*6/uL (4.20-5.50); Red Cell Distribution Width 14.3 % (11.0-16.0)
[2024-02-21 05:12] LABS: Glucose, Whole Blood 232 mg/dL (60-115)
[2024-02-21 05:20] LABS: White Blood Count 24.4 X10*3/uL (4.8-10.8)
[2024-02-21 05:25] LABS: Alanine Aminotransferase 6 U/L (0-31); Albumin Level 3.1 g/dL (3.5-5.0); Alkaline Phosphatase 105 U/L (39-117); Anion Gap 15 (12-20); Aspartate Amino Transferase 8 U/L (5-31); Bilirubin Total 0.3 mg/dL (0.0-1.0); Blood Urea Nitrogen 8 mg/dL (9-16); Calcium 8.6 mg/dL (8.4-10.2); Carbon Dioxide 22 mmol/L (22-29); Chloride 102 mmol/L (96-108); Creatinine Clr Calc Pharmacy 148.4; Estimated Glomerular Filt Rate > 60; Glucose Random 270 mg/dL (60-115); Magnesium 1.6 mg/dL (1.6-2.6); Phosphorus 1.9 mg/dL (2.7-4.5); Potassium 3.7 mmol/L (3.3-5.1); Sodium 135 mmol/L (135-145); Total Protein 7.4 g/dL (6.5-8.0)
[2024-02-21 05:27] LABS: Platelet Count 433 X10*3/uL (160-400)
[2024-02-21] MEDS: Insulin Glargine,Hum.rec.anlog 100 UNIT/ML 10 ML VIAL 15 UNIT SUBCUT (05:43)
[2024-02-21] MEDS: vancomycin/NS 2,000 MG/500 ML PLAST..BAG 250 MG IV (06:30)
[2024-02-21 07:32] LABS: Glucose, Whole Blood 243 mg/dL (60-115)
[2024-02-21] MEDS: Piperacillin Sodium/Tazobactam 4.5 GM in 0.9 % Sodium Chloride 100 ML IV (07:44)
[2024-02-21] MEDS: Enoxaparin Sodium 40 MG/0.4 ML SYRINGE SUBCUT (07:44)
[2024-02-21] MEDS: Insulin Lispro 100 UNIT/ML 3 ML VIAL SUBCUT ×4 (07:55→23:52)
--- NOTE | 2024-02-21 08:01 | PHA.MEDREC ---
Pharmacy Consult ? Medication Reconciliation Pharmacy has completed the medication reconciliation. Pt states they never used long acting insulin because they did not know which dose to give themselves and per the patient, could not get a hold of anybody to give her a dose number. Only used Humalog.
[2024-02-21] MEDS: Ibuprofen 400 MG TABLET PO (08:06)
[2024-02-21] MEDS: amLODIPine Besylate 2.5 MG TABLET 7.5 MG PO (08:06)
[2024-02-21] MEDS: lisinopriL 5 MG TABLET PO (08:06)
--- NOTE | 2024-02-21 09:27 | PM.CCPN ---
Subjective Subjective Date of Service: 02/21/24 Interval History: 38-year-old lady with underlying obesity, diabetes mellitus, substance abuse on methadone with relapse and heroin use before admission admitted on 02/20/2024 with hyperglycemia secondary to noncompliance with her medication regimen requiring insulin drip. Patient also noted to cellulitic rash on started on vancomycin. No events overnight. Titrated off insulin drip. Critical Care Time (minutes): 0 Physical Exam Vital Signs: Vital Signs: Last Vital Signs Temp 98.0 F 02/21/24 08:00 Pulse 107 H 02/21/24 08:00 Resp 20 02/21/24 08:00 BP 188/89 H 02/21/24 08:00 Pulse Ox 95 02/21/24 08:00 O2 Del Method Room Air 02/21/24 08:00 BMI result Body Mass Index 40.9 Const: General: no acute distress, alert and awake Nutritional Appearance: obese Eyes: Sclerae: sclerae normal EOM: EOMs intact bilaterally Neck: Neck: Yes no lymphadenopathy, Yes trachea midline and Yes supple Resp: Effort & Inspection: normal respiratory effort and no respiratory distress Auscultation: clear to auscultation bilaterally Cardio: Rate: tachycardic Rhythm: regular rhythm Heart sounds: no gallops, no murmurs and no rubs GI: Palpation (GI): Soft to palpation and Other GI palpation findings present ( Nontender) Auscultation: normal bowel sounds Extrem: General: Yes no pedal edema, No clubbing and No cyanosis Objective Data Labs 02/21/24 04:50 02/21/24 04:50 Labs: Laboratory Results - last 24 hr 02/20/24 02/20/24 02/20/24 21:03 22:02 23:45 WBC 23.9 H RBC 4.66 Hgb 11.8 L Hct 37.0 MCV 79.4 L MCH 25.3 L MCHC 31.9 RDW 14.3 Plt Count 603 H D MPV 8.2 L Immature Gran % (Auto) 1.8 H Neut % (Auto) 85.8 H Lymph % (Auto) 6.4 L [place] % (Auto) 5.5 Eos % (Auto) 0.0 Baso % (Auto) 0.5 Lymph # (Auto) 1.5 [place] # (Auto) 1.3 H Eos # (Auto) 0.0 Baso # (Auto) 0.1 Abs Immat Gran (auto) 0.43 H Absolute Neuts (auto) 20.5 H Absolute Nucleated RBC 0.000 Nucleated RBC % (auto) 0.0 Smear Tech's Comments VERIFIED VBG pH VBG pCO2 VBG pO2 VBG HCO3 VBG O2 Saturation VBG Base Excess Sodium 133 L Potassium 3.7 Chloride 96 Carbon Dioxide 18 L Anion Gap 23 H BUN 9 Creatinine 0.86 Estim Creat Clear Calc 122.6 Estimated GFR > 60 POC Glucose 366 H* 346 H Random Glucose 377 H* Lactic Acid Calcium 9.0 D Phosphorus Magnesium Total Bilirubin 0.4 AST 13 ALT 8 Alkaline Phosphatase 136 H Total Protein 8.7 H Albumin 3.1 L Beta-Hydroxybutyrate 3.96 H Beta HCG, Quant < 2 Urine Color Urine Appearance Urine pH Ur Specific [place] Urine Protein Urine Glucose (UA) Urine Ketones Urine Blood Urine Nitrite Ur Leukocyte Esterase Urine RBC Urine WBC Ur Squamous Epith Cells Urine Bacteria Hyaline Casts Urine Opiates Screen Ur Buprenorphine Scrn Ur Oxycodone Screen Urine Methadone Screen Urine Fentanyl Screen Ur Barbiturates Screen Ur Phencyclidine Scrn Ur Amphetamines Screen U Benzodiazepines Scrn Urine Cocaine Screen U Marijuana (THC) Screen 02/21/24 02/21/24 02/21/24 00:05 00:10 00:53 WBC RBC Hgb Hct MCV MCH MCHC RDW Plt Count MPV Immature Gran % (Auto) Neut % (Auto) Lymph % (Auto) [place] % (Auto) Eos % (Auto) Baso % (Auto) Lymph # (Auto) [place] # (Auto) Eos # (Auto) Baso # (Auto) Abs Immat Gran (auto) Absolute Neuts (auto) Absolute Nucleated RBC Nucleated RBC % (auto) Smear Tech's Comments VBG pH 7.40 VBG pCO2 34 VBG pO2 62 VBG HCO3 22 VBG O2 Saturation 89.0 VBG Base Excess -2.0 Sodium Potassium Chloride Carbon Dioxide Anion Gap BUN Creatinine Estim Creat Clear Calc Estimated GFR POC Glucose 326 H Random Glucose Lactic Acid 0.9 Calcium Phosphorus Magnesium Total Bilirubin AST ALT Alkaline Phosphatase Total Protein Albumin Beta-Hydroxybutyrate Beta HCG, Quant Urine Color Urine Appearance Urine pH Ur Specific [place] Urine Protein Urine Glucose (UA) Urine Ketones Urine Blood Urine Nitrite Ur Leukocyte Esterase Urine RBC Urine WBC Ur Squamous Epith Cells Urine Bacteria Hyaline Casts Urine Opiates Screen Ur Buprenorphine Scrn Ur Oxycodone Screen Urine Methadone Screen Urine Fentanyl Screen Ur Barbiturates Screen Ur Phencyclidine Scrn Ur Amphetamines Screen U Benzodiazepines Scrn Urine Cocaine Screen U Marijuana (THC) Screen 02/21/24 02/21/24 02/21/24 01:23 01:24 02:09 WBC RBC Hgb Hct MCV MCH MCHC RDW Plt Count MPV Immature Gran % (Auto) Neut % (Auto) Lymph % (Auto) [place] % (Auto) Eos % (Auto) Baso % (Auto) Lymph # (Auto) [place] # (Auto) Eos # (Auto) Baso # (Auto) Abs Immat Gran (auto) Absolute Neuts (auto) Absolute Nucleated RBC Nucleated RBC % (auto) Smear Tech's Comments VBG pH VBG pCO2 VBG pO2 VBG HCO3 VBG O2 Saturation VBG Base Excess Sodium 134 L Potassium 3.6 Chloride 97 Carbon Dioxide 19 L Anion Gap 22 H BUN 9 Creatinine 0.82 Estim Creat Clear Calc 128.5 Estimated GFR > 60 POC Glucose 330 H Random Glucose 389 H* Lactic Acid Calcium 9.0 Phosphorus 2.5 L Magnesium 1.6 Total Bilirubin AST ALT Alkaline Phosphatase Total Protein Albumin Beta-Hydroxybutyrate Beta HCG, Quant Urine Color Yellow Urine Appearance Clear Urine pH 5.5 Ur Specific [place] >= 1.030 H Urine Protein 30 (1+) H Urine Glucose (UA) >=1000 H Urine Ketones >=160 Urine Blood Large (3+) H Urine Nitrite Negative Ur Leukocyte Esterase Negative Urine RBC 11-20 H Urine WBC 0-5 Ur Squamous Epith Cells 0-2 Urine Bacteria None Seen Hyaline Casts 3-5 Urine Opiates Screen POSITIVE H Ur Buprenorphine Scrn Not Detected Ur Oxycodone Screen Not Detected Urine Methadone Screen Positive H Urine Fentanyl Screen POSITIVE H Ur Barbiturates Screen Not Detected Ur Phencyclidine Scrn Not Detected Ur Amphetamines Screen Not Detected U Benzodiazepines Scrn Not Detected Urine Cocaine Screen Not Detected U Marijuana (THC) Screen POSITIVE H 02/21/24 02/21/24 02/21/24 03:09 04:08 04:48 WBC RBC Hgb Hct MCV MCH MCHC RDW Plt Count MPV Immature Gran % (Auto) Neut % (Auto) Lymph % (Auto) [place] % (Auto) Eos % (Auto) Baso % (Auto) Lymph # (Auto) [place] # (Auto) Eos # (Auto) Baso # (Auto) Abs Immat Gran (auto) Absolute Neuts (auto) Absolute Nucleated RBC Nucleated RBC % (auto) Smear Tech's Comments VBG pH 7.50 H VBG pCO2 30 VBG pO2 49 VBG HCO3 23 VBG O2 Saturation 82.0 VBG Base Excess 1.5 Sodium Potassium Chloride Carbon Dioxide Anion Gap BUN Creatinine Estim Creat Clear Calc Estimated GFR POC Glucose 329 H 294 H Random Glucose Lactic Acid Calcium Phosphorus Magnesium Total Bilirubin AST ALT Alkaline Phosphatase Total Protein Albumin Beta-Hydroxybutyrate Beta HCG, Quant Urine Color Urine Appearance Urine pH Ur Specific [place] Urine Protein Urine Glucose (UA) Urine Ketones Urine Blood Urine Nitrite Ur Leukocyte Esterase Urine RBC Urine WBC Ur Squamous Epith Cells Urine Bacteria Hyaline Casts Urine Opiates Screen Ur Buprenorphine Scrn Ur Oxycodone Screen Urine Methadone Screen Urine Fentanyl Screen Ur Barbiturates Screen Ur Phencyclidine Scrn Ur Amphetamines Screen U Benzodiazepines Scrn Urine Cocaine Screen U Marijuana (THC) Screen 02/21/24 02/21/24 02/21/24 04:50 05:08 07:28 WBC 24.4 H RBC 3.59 L D Hgb 9.1 L D Hct 28.0 L D MCV 78.0 L MCH 25.3 L MCHC 32.5 RDW 14.3 Plt Count 433 H D MPV 9.7 Immature Gran % (Auto) 2.3 H Neut % (Auto) 85.4 H Lymph % (Auto) 5.5 L [place] % (Auto) 6.4 Eos % (Auto) 0.0 Baso % (Auto) 0.4 Lymph # (Auto) 1.3 [place] # (Auto) 1.6 H Eos # (Auto) 0.0 Baso # (Auto) 0.1 Abs Immat Gran (auto) 0.56 H Absolute Neuts (auto) 20.8 H Absolute Nucleated RBC 0.000 Nucleated RBC % (auto) 0.0 Smear Tech's Comments VBG pH VBG pCO2 VBG pO2 VBG HCO3 VBG O2 Saturation VBG Base Excess Sodium 135 Potassium 3.7 Chloride 102 Carbon Dioxide 22 Anion Gap 15 BUN 8 L Creatinine 0.71 Estim Creat Clear Calc 148.4 Estimated GFR > 60 POC Glucose 232 H 243 H Random Glucose 270 H Lactic Acid Calcium 8.6 Phosphorus 1.9 L Magnesium 1.6 Total Bilirubin 0.3 AST 8 ALT 6 Alkaline Phosphatase 105 Total Protein 7.4 Albumin 3.1 L Beta-Hydroxybutyrate Beta HCG, Quant Urine Color Urine Appearance Urine pH Ur Specific [place] Urine Protein Urine Glucose (UA) Urine Ketones Urine Blood Urine Nitrite Ur Leukocyte Esterase Urine RBC Urine WBC Ur Squamous Epith Cells Urine Bacteria Hyaline Casts Urine Opiates Screen Ur Buprenorphine Scrn Ur Oxycodone Screen Urine Methadone Screen Urine Fentanyl Screen Ur Barbiturates Screen Ur Phencyclidine Scrn Ur Amphetamines Screen U Benzodiazepines Scrn Urine Cocaine Screen U Marijuana (THC) Screen Progress Note: A&P Assessment and plan (1) DKA (diabetic ketoacidosis): Status: Acute (2) Cellulitis: Status: Acute (3) Opiate abuse, continuous: Status: Acute (4) Methadone maintenance therapy patient: Status: Acute Plan Assessment: 38-year-old lady with underlying obesity, hypertension, diabetes and substance abuse on methadone admitted with diabetic ketoacidosis and cellulitis Plan: Neuro: No acute issues. Cardiac: No acute issues. Pulmonary: No acute issues. Renal: No acute issues. Endo: Diabetic ketoacidosis, resolved, titrated off insulin drip to subcutaneous insulin. GI: No acute issues. ID: Left upper extremity cellulitis, continue empiric vancomycin. Heme/Onc: No acute issues. Psych: No acute issues. Miscellaneous: No acute issues. Prophylaxis: Heparin Diet: Diabetic Quality Stroke Does the patient have a stroke diagnosis?: No VTE Prior VTE?: No VTE Risk Level:: Medical - low VTE Device Contraindication: Treatment Not Indicated VTE Drug Contraindication: N/A - Med Ordered
[2024-02-21] MEDS: ondansetron HCL 4 MG/2 ML VIAL IVPUSH ×2 (09:49→20:02)
--- NOTE | 2024-02-21 10:36 | PHA.PROG ---
Admission Date/Time: February 21, 2024 01:02 Indication: SKIN INFECTION Weight in k kg Adjusted body weight in Kg: [place] body weight in Kg: Obesity Dosing Indication % IBW: Serum Creatinine - Last 168 Hours 02/20/24 02/21/24 02/21/24 22:02 01:24 04:50 Creatinine 0.86 0.82 0.71 Estimated CrCl and GFR - Last 168 Hours 02/20/24 02/21/24 02/21/24 22:02 01:24 04:50 Estim Creat Clear Calc 122.6 128.5 148.4 Estimated GFR > 60 > 60 > 60 Vancomycin Loading Dose: 2000 MG Current Vancomycin Dosing Regimen: 1250 MG Q12H Vancomycin Monitoring using AUC goal of 400 - 600 range with trough as surrogate marker: GSH=042 TROUGH=13.3 Date and Time for next Vancomycin Level to be drawn: 02/22/24 @1700 Pharmacist Comments on Vancomycin Plan: Vancomycin dosing will take advantage of [employer] as a clinical decision support tool that uses Bayesian modeling to calculate individual patient's pharmacokinetic parameters and forecast the patient's drug concentration time course with the target goal AUC 24 range of 400 - 600 mg/L/hr.
[2024-02-21 11:30] LABS: Glucose, Whole Blood 273 mg/dL (60-115)
--- NOTE | 2024-02-21 15:11 | MHC.CM.PN ---
DX DKA r/t IVDA relapse. She has not been taking her medication. She is independent with all functional mobility. [facility] is her community Methadone dispensary. The recovery team will meet with the patient. DP Home with resumption of MMTD @ [facility]. Community resources provided by the steel fitter. Patient may need assist with transport from the [facility] shuttle.
--- NOTE | 2024-02-21 15:26 | PM.EVENT ---
Event Note Date of Service: 02/21/24 Event Note: 38-year-old lady with underlying obesity, diabetes mellitus, substance abuse on methadone with relapse and heroin use before admission admitted on 02/20/2024 with hyperglycemia secondary to noncompliance with her medication regimen requiring insulin drip, now off insulin drip and on subcu Lantus. Patient also noted to cellulitic rash on started on vancomycin. Downgraded to medical floor, discussed with ICU attending. Time Spent With Patient Time: Total time managing care of this patient today ____ minutes.
[2024-02-21 16:51] LABS: Glucose, Whole Blood 271 mg/dL (60-115)
[2024-02-21] MEDS: vancomycin HCL 1,250 MG in 0.9 % Sodium Chloride 250 ML 166.67 MG IV (20:01)
[2024-02-21] MEDS: cloNIDine HCL 0.1 MG TABLET PO (20:38)
[2024-02-21] MEDS: LORazepam 1 MG TABLET PO (20:39)
[2024-02-21 23:16] LABS: Glucose, Whole Blood 251 mg/dL (60-115)
[2024-02-22] VITALS (11 sets, daily range): BP systolic 132–170; BP diastolic 70–84; PULSE 84–108; RESP 18–20; TEMP 36.2–37.6; O2SAT 92–97
[2024-02-22] MEDS: Albumin Human 25 % 100 ML IV (02:10)
[2024-02-22] MEDS: vancomycin HCL 1,250 MG in 0.9 % Sodium Chloride 250 ML 166.67 MG IV (06:06)
--- NOTE | 2024-02-22 07:00 | CA_ITS ---
Transthoracic Echocardiogram Patient (Last, First, Middle): Misty Schmitt, Gender: Female Date of : 1985 Age: 38 Procedure Date: 02/22/2024 Procedure Type: Transthoracic Echocardiogram Location: [facility] – [place], [place] Height: 172.72 cm Weight: 121.56 kg BSA: 2.31 m2 Heart Rate: 84 bpm BP: 170 / 80 mmHg Helicopter Technician: Referring MD: Samira OLEARY Symptoms: bacteremia; eval for endocarditis Study Quality: Fair but adequate ECG Rhythm: Sinus Conclusions: - Normal left ventricular cavity size. There is moderately increased left ventricular wall thickness. The left ventricular systolic function is hyperdynamic. The visually estimated ejection fraction is >70%. - E/E prime ratio is between 8 and 15 consistent with indeterminate filling pressures. - Normal right ventricular cavity size and systolic function. - The left atrium is moderately dilated. - MIld gradient across the aortic valve due to hyperdynamic state. Findings Left Ventricle Normal left ventricular cavity size. There is moderately increased left ventricular wall thickness. The left ventricular systolic function is hyperdynamic. The visually estimated ejection fraction is >70%. There is no evidence of regional wall motion abnormalities. Abnormal diastolic function is noted. Spectral Doppler is indicative of a pseudonormal filling pattern. E/E prime ratio is between 8 and 15 consistent with indeterminate filling pressures. Right Ventricle Normal right ventricular cavity size and systolic function. Atria The left atrium is moderately dilated. Aortic Valve Normal aortic valve structure and function. There is no aortic valve stenosis. There is no aortic valve regurgitation. Mitral Valve Normal mitral valve structure and function. There is no mitral valve regurgitation. There is no mitral valve stenosis. Pulmonic Valve The pulmonic valve is likely normal. Tricuspid Valve Normal tricuspid valve structure and function. There is trace tricuspid valve regurgitation. Normal right atrial pressure. There is no evidence of pulmonary hypertension. Great Vessels The visualized portions of the pulmonary artery and branches are normal. Venous The inferior vena cava is normal in size and collapses greater than 50% with inspiration. Pericardium/Pleural There is no evidence of pericardial effusion. Prior Study Comparison Changes noted compared to prior study dated: 01/11/2022. Hyperdynamic LV, moderate LA dilation. Measurements 2D Linear Measurements IVSd: 1.28 0.6-0.9/0.6-1.0 cm LVIDd: 4.74 3.9-5.3/4.2-5.9 cm LVIDd Index: 2.05 2.4-3.2/2.2-3.1 cm/m2 LVIDs: 2.70 2.0-3.6 cm LVPWd: 1.28 0.7-1.1 cm LA Diam: 5.00 2.7-3.8/3.0-4.0 cm LAIDs Index: 2.16 1.5-2.3 cm/m2 LV Mass: 293.82 67-162/88-224 g LV Mass Index: 127.20 43-95/49-115 g/m2 LVOT Diam: 2.30 3.0+(-)1.3 cm Mitral Valve MV Pk E: 1.20 MV PK A: 0.88 MV Decel Time: 187.00 E/A: 1.40 E'Lateral: 8.59 E'Medial: 8.92 E/E' Med: 13.50 E/E' Lat: 14.00 PHT: 55.00 MVA PHT: 4.00 Decel Dooly: 6.44 Aortic Valve AoV Pk Italo: 2.31 AoV Mn Italo: 1.42 AoV VTI: 0.43 AoV Pk Grad: 21.00 Aov Mn Grad: 10.00 REDDY Cont.VTI: 3.12 LVOT LVOT Pk Italo: 1.43 LVOT Mn Italo: 0.99 LVOT VTI: 0.33 LVOT Pk Grad: 8.00 LVOT Mn Grad: 4.00 LVOT Diam: 2.30 LVOT Area: 4.15 Diastolic Function MV Pk E: 1.20 MV Pk A: 0.88 E/A: 1.40 E'Medial: 8.92 E/E' Med: 13.50 E' Laterial: 8.59 E/E' Lat: 14.00 Right Ventricle TAPSE (mm): 31.30 TVS' Italo: 19.90 Tricuspid Valve TR Pk Italo: 2.22 TR Pk Grad: 20.00 RA Press: 3.00 RVSP: 23.00 Great Vessels Aorta Sinus of Valsalva: 3.00 2.0-3.5 cm Ao Asc: 3.60 2.1-3.4 cm Pulmonary Valve PV Pk Italo: 1.57 Peak PV Grad: 10.00 Updated in Other Vendor System with Status of Final Gonsalo Bedolla MD electronically signed on 02/22/2024 7:28:25 PM with status of Final
[2024-02-22 07:44] LABS: Glucose, Whole Blood 368 mg/dL (60-115)
[2024-02-22] MEDS: amLODIPine Besylate 2.5 MG TABLET 7.5 MG PO (07:44)
[2024-02-22] MEDS: lisinopriL 5 MG TABLET PO (07:45)
[2024-02-22] MEDS: Enoxaparin Sodium 40 MG/0.4 ML SYRINGE SUBCUT (07:45)
[2024-02-22] MEDS: Insulin Lispro 100 UNIT/ML 3 ML VIAL SUBCUT ×4 (07:46→22:13)
--- NOTE | 2024-02-22 09:07 | HE.PHANOTE ---
RE METHADONE Pharmacy has received methadone verifications sheet done by Lore MARADIAGA. Patient gets doses of 100 mg from [facility] [phone], last dosed per Kennedi LEA on 02/12/24
[2024-02-22] MEDS: Insulin Glargine,Hum.rec.anlog 100 UNIT/ML 10 ML VIAL 15 UNIT SUBCUT (09:12)
[2024-02-22 09:19] LABS: MANUAL DIFF FLAG NO
[2024-02-22 09:22] LABS: Basophils Absolute Auto 0.1 X10*3/uL (0.0-0.2); Basophils Percent Auto 0.6 % (0-2); Eosinophils Percent Auto 0.1 % (0-4); Hematocrit 29.3 % (37.0-47.0); Hemoglobin 9.8 g/dl (12.0-16.0); Imm Gran Pct Auto 2.6 % (0.0-0.4); Lymphocytes Absolute Auto 1.6 X10*3/uL (1.2-4.9); Lymphocytes Percent Auto 8.5 % (20-40); Mean Corpuscular HGB Conc 33.4 g/dl (31.0-35.0); Mean Corpuscular Hemoglobin 25.8 pg (27.0-33.0); Mean Corpuscular Volume 77.1 fL (80.0-98.0); Mean Platelet Volume 8.8 fL (9.4-12.3); Monocytes Absolute Auto 1.1 X10*3/uL (0.1-1.2); Monocytes Percent Auto 5.6 % (2-11); Neutrophils Absolute Auto 15.8 x10*3/uL (2.0-8.3); Neutrophils Percent Auto 82.6 % (45-73); Platelet Count 439 X10*3/uL (160-400); Red Cell Distribution Width 14.5 % (11.0-16.0); White Blood Count 19.2 X10*3/uL (4.8-10.8)
[2024-02-22 09:43] LABS: VBG pCO2 18 mmHg; VBG pH 7.71 (7.32-7.43); VBG pO2 110 mmHg
[2024-02-22 09:44] LABS: VBG HCO3 22 mmol/L (22-26)
[2024-02-22 09:45] LABS: Venous Blood Gas Refer to POC result
[2024-02-22 09:55] LABS: Anion Gap 16 (12-20); Blood Urea Nitrogen 5 mg/dL (9-16); Calcium 8.9 mg/dL (8.4-10.2); Carbon Dioxide 17 mmol/L (22-29); Chloride 98 mmol/L (96-108); Creatinine Clr Calc Pharmacy 168.1; Estimated Glomerular Filt Rate > 60; Glucose Random 386 mg/dL (60-115); Magnesium 1.8 mg/dL (1.6-2.6); Phosphorus 1.6 mg/dL (2.7-4.5); Potassium 3.2 mmol/L (3.3-5.1); Sodium 128 mmol/L (135-145)
[2024-02-22] MEDS: methADONE HCl 20 MG/2 ML ORAL.CONC 50 MG PO (09:57)
[2024-02-22] MEDS: iohexoL 350 MG/ML 75 ML INFUS..BTL 85 ML IV (10:54)
[2024-02-22 11:17] LABS: Glucose, Whole Blood 331 mg/dL (60-115)
[2024-02-22] MEDS: Piperacillin Sodium/Tazobactam 4.5 GM in 0.9 % Sodium Chloride 100 ML IV (11:36)
--- NOTE | 2024-02-22 11:43 | HO.PM.IMPN ---
Subjective Subjective Date of Service: 02/22/24 Interval History: Seen and examined this morning Follow-up for DKA, cellulitis Reporting nausea and vomiting. Denies fever Review of Systems Review of Systems: Yes all other systems are reviewed and are negative Constitutional Constitutional: Denies chills and Denies fever(s) Physical Exam Vital Signs: Vital Signs: Last Vital Signs Temp 98.0 F 02/22/24 11:23 Pulse 86 02/22/24 11:23 Resp 20 02/22/24 11:23 BP 144/72 H 02/22/24 11:23 Pulse Ox 96 02/22/24 11:23 O2 Del Method Room Air 02/22/24 11:23 BMI result Body Mass Index 40.9 Const: Other: ill appearing General: alert and awake Nutritional Appearance: obese Orientation/consciousness: patient oriented x3 Resp: Effort & Inspection: normal respiratory effort, able to speak in complete sentences, no respiratory distress and no use of accessory muscles Cardio: Rate: regular rate GI: Inspection: No distended Palpation (GI): Soft to palpation and nontender Skin: Other: left arm chronic wound, no surrounding erythema, no warmth Left buttock with large area of warmth, tenderness, induration Neuro: General: patient oriented x3, moves all extremities and CN's II-XI intact bilaterally Extrem: General: Yes no pedal edema Objective Data Active Medications Amlodipine Besylate (Amlodipine Besylate 2.5 Mg Tablet) 7.5 mg PO DAILY [facility]; Protocol Last Admin: 02/22/24 07:44 Dose: 7.5 mg Documented By: EVANGELINA Enoxaparin Sodium (Enoxaparin Sodium 40 Mg/0.4 Ml Syringe) 40 mg SUBCUT Q24H [facility] Last Admin: 02/22/24 07:45 Dose: 40 mg Documented By: EVANGELINA Dextrose (D10) 250 mls @ 750 mls/hr IV Q30M PRN PRN Reason: BG <70 Vancomycin HCl 1,250 mg/ (Sodium Chloride) 250 mls @ 166.667 mls/hr IV Q12H [facility] Last Infusion: 02/22/24 07:38 Dose: Infused Documented By: EVANGELINA Piperacillin Sod/Tazobactam (Sod 4.5 gm/ Sodium Chloride) 100 mls @ 200 mls/hr IV Q8H [facility] Last Admin: 02/22/24 11:36 Dose: 200 mls/hr Documented By: EVANGELINA Insulin Glargine (Insulin Glargine,Hum.Rec.Anlog 100 Unit/Ml 10 Ml Vial) 15 unit SUBCUT DAILY [facility] Last Admin: 02/22/24 09:12 Dose: 15 unit Documented By: EVANGELINA Insulin Human Lispro (Insulin Lispro 100 Unit/Ml 3 Ml Vial) 0 unit SUBCUT QIDACHS [facility]; Protocol Last Admin: 02/22/24 11:36 Dose: 8 unit Documented By: EVANGELINA Lisinopril (Lisinopril 5 Mg Tablet) 5 mg PO DAILY [facility]; Protocol Last Admin: 02/22/24 07:45 Dose: 5 mg Documented By: EVANGELINA Methadone HCl (Methadone Hcl 20 Mg/2 Ml Oral.Conc) 50 mg PO DAILY [facility] Last Admin: 02/22/24 09:57 Dose: 50 mg Documented By: EVANGELINA Ondansetron HCl (Ondansetron Hcl 4 Mg/2 Ml Vial) 4 mg IVPUSH Q8H PRN PRN Reason: Nausea and Vomiting Last Admin: 02/21/24 20:02 Dose: 4 mg Documented By: ABIMBOLA Pharmacy Consult (Consult Rx Vancomycin Dosing) 1 each MISCELLANE DAILY PRN PRN Reason: Consult order Labs 02/22/24 09:11 02/22/24 09:08 Labs: Laboratory Results - last 24 hr 02/21/24 02/21/24 02/22/24 16:44 23:09 07:17 MCV MCH MCHC RDW Plt Count MPV Immature Gran % (Auto) Neut % (Auto) Lymph % (Auto) [place] % (Auto) Eos % (Auto) Baso % (Auto) Lymph # (Auto) [place] # (Auto) Eos # (Auto) Baso # (Auto) Abs Immat Gran (auto) Absolute Neuts (auto) Absolute Nucleated RBC Nucleated RBC % (auto) VBG pH VBG pCO2 VBG pO2 VBG HCO3 VBG O2 Saturation VBG Base Excess Anion Gap Estim Creat Clear Calc Estimated GFR POC Glucose 271 H 251 H 368 H* Random Glucose Calcium Phosphorus Magnesium 02/22/24 02/22/24 02/22/24 09:08 09:11 10:49 MCV 77.1 L MCH 25.8 L MCHC 33.4 RDW 14.5 Plt Count 439 H MPV 8.8 L Immature Gran % (Auto) 2.6 H Neut % (Auto) 82.6 H Lymph % (Auto) 8.5 L [place] % (Auto) 5.6 Eos % (Auto) 0.1 Baso % (Auto) 0.6 Lymph # (Auto) 1.6 [place] # (Auto) 1.1 Eos # (Auto) 0.0 Baso # (Auto) 0.1 Abs Immat Gran (auto) 0.50 H Absolute Neuts (auto) 15.8 H Absolute Nucleated RBC 0.000 Nucleated RBC % (auto) 0.0 VBG pH 7.71 H* VBG pCO2 18 VBG pO2 110 VBG HCO3 22 VBG O2 Saturation 99.0 VBG Base Excess 5.0 Anion Gap 16 Estim Creat Clear Calc 168.1 Estimated GFR > 60 POC Glucose 331 H Random Glucose 386 H* Calcium 8.9 Phosphorus 1.6 L Magnesium 1.8 Microbiology Microbiology Results: Microbiology 02/20/24 23:07 Blood Culture - Preliminary Blood - Venous Staphylococcus aureus 02/21/24 00:05 Blood Culture - Preliminary Blood - Venous Staphylococcus aureus Assessment and Plan (1) Bacteremia: Status: Acute (2) Cellulitis: Status: Acute (3) Acute hyperglycemia: Status: Acute Plan This is a 38-year-old female with history of cyclical vomiting syndrome, uncontrolled diabetes, hypertension admitted to the ICU due to DKA Type 2 diabetes with hyperglycemia due to medication noncompliance DKA resolved Does not have PCP, has been unable to get diabetic medication Was started on Lantus in ICU, cover with sliding scale Buttock cellulitis Due to uncontrolled diabetes and size/location of cellulitis will obtain pelvis CT to rule out deeper infection-? showing gluteal abscess add IV zosyn, continue IV vancomycin surgical consult GPC bacteremia 2/2 cultures growing staph aureus, susceptibilities pending. Continue IV vancomycin likely skin source echo pending ID consult pending Surveillance blood cultures ordered, reported difficulty from phlebotomy in collecting Left arm wound Appears chronic, does not appear to be infected Wound care consult Opiate use disorder On methadone at baseline, dose confirmed 100 mg daily. Has not received since February 11 Plan to resume starting at 50 mg daily and titrate Addiction medicine consult ordered Pseudo hyponatremia Due to hyperglycemia low phos, low k replace and follow Hypertension Continue lisinopril, Norvasc Chronic microcytic anemia Above transfusion threshold Follow up CBC Morbid obesity BMI 40.9 Low albumin 3.1 DVT prophylaxis-Lovenox Patient requires ongoing inpatient stay for management of bacteremia, gluteal abscess, need for IV antibiotics and surgical evaluation Quality Stroke Does the patient have a stroke diagnosis?: No VTE Prior VTE?: No VTE Risk Level:: Medical - low VTE Device Contraindication: Treatment Not Indicated VTE Drug Contraindication: N/A - Med Ordered
--- NOTE | 2024-02-22 12:11 | P.CDIM_ITS ---
PROVIDER RESPONSE TEXT: To clarify, the appropriate diagnosis supported by the clinical indicators: Hypoalbuminemia QUERY TEXT: PHYSICIAN'S DOCUMENTATION REQUEST Date of Query: 02/22/2024 08:25 AM EDT Patient Name: Misty Schmitt Admit Date: 02/21/2024 Dear Samira Nagel, A review of the medical record indicates additional documentation may be needed. Please review below and update the documentation accordingly. Clinical Indicators: LABS: albumin 3.1 IV Albumin Human Based on the above, is there a diagnosis that correlates with these labs: Hypoalbuminemia Labs indicate a diagnosis of (please specify) Other (explain) Clinically unable to determine (explain) Thank you, Mary Napoles, CCS, CDIS Use of terms such as suspected, likely, concern for, or probable (associated with a specific diagnosi s that is being evaluated, monitored, or treated as if it exists) are acceptable and can be coded in the inpatient se tting, when documented at the time of discharge. Please use your independent medical judgment in providing your response. THIS QUERY IS PART OF THE PERMANENT MEDICAL RECORD
[2024-02-22] MEDS: Potassium Phosphate/NS 15 MMOL/250 ML PLAST..BAG 62.5 MMOL IV ×2 (12:29→17:21)
--- NOTE | 2024-02-22 13:56 | PM.CNGS ---
History of Present Illness Consult details Consult date: 02/22/24 Requesting physician: Samira Nagel Narrative: 38-year-old female patient with diabetes mellitus presenting with complaints of pain in the left buttock for several weeks which has increased in severity. She was admitted to the hospitalist service for diabetic ketoacidosis. She reports not taking her medications after they ran out. She initially noted a small pimple in the buttock which gradually grew and became more red and painful. She denies any pain if she avoids pressure on the side. Laboratories revealed a WBC of 19.2. CT abdomen pelvis confirmed a fluid collection in the left buttock consistent with an abscess. Surgical consultation was requested for possible I&D. Review of Systems Review of Systems: Yes all other systems are reviewed and are negative PMFSH Past Medical History Medical History PCOS (polycystic ovarian syndrome) Rash Polysubstance (excluding opioids) dependence, daily use Methadone maintenance therapy patient Anxiety and depression Diabetes Social History Social History Household Members: Children Household Members Other:: daughter Housing: House Do you presently have visiting nurse or other home services: No Alcohol intake: current Alcohol intake frequency: does not drink Patient Tobacco Use Status: Former Tobacco user Tobacco use type: Cigarette Cigarette Packs Per Day: 3 Cigarettes Per Day: 60.0 Years Smoked: 2 Smoked in Last 30 Days: No e-Cigarette/Vaping Use: Never Used Use of substances other than those prescribed or required for medical reasons: Yes Substance Use Type: Heroin and Marijuana Substance Use Frequency: Daily Substance Use Frequency Other:: 4 Last Used Substance: Just Prior to Admission Currently Displaying Signs/Symptoms of Drug Intoxication Withdrawal: No Any prior treatment program specific to substance use: Yes Have you been hit, kicked, punched, or otherwise hurt by someone within the past year? If so, by whom?: No Do you feel safe in your current relationship?: No Current Relationship Is there a partner from a previous relationship who is making you feel unsafe now?: No Are you made to feel afraid or neglected: No Advance Directives: Yes Advance Directives on File: Yes Advance Directives Date on File: 01/11/22 Do you have a plan to hurt others: No Plan Recently lost weight without trying: Yes How much weight loss: 2-13 pounds Nutrition Risks: No Nutritional Risk Patient : No : No Poor oral hygiene: No service: No Current occupational status: unemployed Meds Allergies Allergy/AdvReac Type Severity Reaction Status Date / Time No Known Allergies Allergy Verified 02/20/24 21:08 Active Medications: Current Medications Amlodipine Besylate (Amlodipine Besylate 2.5 Mg Tablet) 7.5 mg PO DAILY [facility]; Protocol Last Admin: 02/22/24 07:44 Dose: 7.5 mg Enoxaparin Sodium (Enoxaparin Sodium 40 Mg/0.4 Ml Syringe) 40 mg SUBCUT Q24H [facility] Last Admin: 02/22/24 07:45 Dose: 40 mg Dextrose (D10) 250 mls @ 750 mls/hr IV Q30M PRN PRN Reason: BG <70 Vancomycin HCl 1,250 mg/ (Sodium Chloride) 250 mls @ 166.667 mls/hr IV Q12H [facility] Last Infusion: 02/22/24 07:38 Dose: Infused Piperacillin Sod/Tazobactam (Sod 4.5 gm/ Sodium Chloride) 100 mls @ 200 mls/hr IV Q8H [facility] Last Infusion: 02/22/24 12:16 Dose: Infused Potassium Phosphate (Kphos) 15 mmol in 250 mls @ 62.5 mls/hr IV Q4H [facility] Stop: 02/22/24 20:14 Last Admin: 02/22/24 12:29 Dose: 62.5 mls/hr Insulin Glargine (Insulin Glargine,Hum.Rec.Anlog 100 Unit/Ml 10 Ml Vial) 15 unit SUBCUT DAILY [facility] Last Admin: 02/22/24 09:12 Dose: 15 unit Insulin Human Lispro (Insulin Lispro 100 Unit/Ml 3 Ml Vial) 0 unit SUBCUT QIDACHS [facility]; Protocol Last Admin: 02/22/24 11:36 Dose: 8 unit Lisinopril (Lisinopril 5 Mg Tablet) 5 mg PO DAILY [facility]; Protocol Last Admin: 02/22/24 07:45 Dose: 5 mg Methadone HCl (Methadone Hcl 20 Mg/2 Ml Oral.Conc) 50 mg PO DAILY [facility] Last Admin: 02/22/24 09:57 Dose: 50 mg Ondansetron HCl (Ondansetron Hcl 4 Mg/2 Ml Vial) 4 mg IVPUSH Q8H PRN PRN Reason: Nausea and Vomiting Last Admin: 02/21/24 20:02 Dose: 4 mg Pharmacy Consult (Consult Rx Vancomycin Dosing) 1 each MISCELLANE DAILY PRN PRN Reason: Consult order Home Medications ?Medication ?Instructions ?Recorded ?Confirmed ?Last Taken ?Type methadone 10 mg/mL oral concentrate 100 mg PO DAILY 01/10/22 02/22/24 02/12/24 History Physical Exam Vital Signs: Vital Signs: Last Vital Signs Temp 98.0 F 02/22/24 11:23 Pulse 86 02/22/24 11:23 Resp 20 02/22/24 11:23 BP 144/72 H 02/22/24 11:23 Pulse Ox 96 02/22/24 11:23 O2 Del Method Room Air 02/22/24 11:23 BMI result Body Mass Index 40.9 Const: General: cooperative and no acute distress Nutritional Appearance: obese Orientation/consciousness: patient oriented x3 Limitations: no limitations HEENT: Head: Yes normocephalic and Yes atraumatic Ears: hearing grossly normal bilaterally Resp: Effort & Inspection: normal respiratory effort, no audible wheezes, no cough and no respiratory distress Cardio: Jugular venous distension: no JVD GI: Inspection: Yes normal to inspection Skin: Other: Warm, dry, no rash Neuro: General: patient oriented x3 Extrem: Other: Eschar involving the left upper extremity at injection site. Left buttock with large area of erythema, edema, fluctuance, and tenderness suggestive of an underlying abscess. General: Yes no clubbing, cyanosis or edema Upper/lower leg/hip images: 1. Site of abscess left buttock Results Labs 02/22/24 09:11 02/22/24 09:08 Labs: Abnormal lab results 02/21/24 02/21/24 02/22/24 Range/Units 16:44 23:09 07:17 WBC (4.8-10.8) X10*3/uL RBC (4.20-5.50) X10*6/uL Hgb (12.0-16.0) g/dl Hct (37.0-47.0) % MCV (80.0-98.0) fL MCH (27.0-33.0) pg Plt Count (160-400) X10*3/uL MPV (9.4-12.3) fL Immature Gran % (Auto) (0.0-0.4) % Neut % (Auto) (45-73) % Lymph % (Auto) (20-40) % Abs Immat Gran (auto) (0.00-0.03) X10*3/uL Absolute Neuts (auto) (2.0-8.3) x10*3/uL VBG pH (7.32-7.43) Sodium (135-145) mmol/L Potassium (3.3-5.1) mmol/L Carbon Dioxide (22-29) mmol/L BUN (9-16) mg/dL POC Glucose 271 H 251 H 368 H* (60-115) mg/dL Random Glucose (60-115) mg/dL Phosphorus (2.7-4.5) mg/dL 02/22/24 02/22/24 02/22/24 Range/Units 09:08 09:11 10:49 WBC 19.2 H (4.8-10.8) X10*3/uL RBC 3.80 L (4.20-5.50) X10*6/uL Hgb 9.8 L (12.0-16.0) g/dl Hct 29.3 L (37.0-47.0) % MCV 77.1 L (80.0-98.0) fL MCH 25.8 L (27.0-33.0) pg Plt Count 439 H (160-400) X10*3/uL MPV 8.8 L (9.4-12.3) fL Immature Gran % (Auto) 2.6 H (0.0-0.4) % Neut % (Auto) 82.6 H (45-73) % Lymph % (Auto) 8.5 L (20-40) % Abs Immat Gran (auto) 0.50 H (0.00-0.03) X10*3/uL Absolute Neuts (auto) 15.8 H (2.0-8.3) x10*3/uL VBG pH 7.71 H* (7.32-7.43) Sodium 128 L (135-145) mmol/L Potassium 3.2 L (3.3-5.1) mmol/L Carbon Dioxide 17 L (22-29) mmol/L BUN 5 L (9-16) mg/dL POC Glucose 331 H (60-115) mg/dL Random Glucose 386 H* (60-115) mg/dL Phosphorus 1.6 L (2.7-4.5) mg/dL Short CBC 02/22/24 Range/Units 09:11 WBC 19.2 H (4.8-10.8) X10*3/uL Hgb 9.8 L (12.0-16.0) g/dl Hct 29.3 L (37.0-47.0) % Plt Count 439 H (160-400) X10*3/uL BMP 02/22/24 09:08 Sodium 128 L Potassium 3.2 L Chloride 98 Carbon Dioxide 17 L BUN 5 L Creatinine 0.63 Calcium 8.9 Urine 02/21/24 Range/Units 01:23 Urine Color Yellow Urine Appearance Clear Urine pH 5.5 (5.0-9.0) Ur Specific [place] >= 1.030 H (1.005-1.025) Urine Protein 30 (1+) H (Neg-Trace) mg/dL Urine Glucose (UA) >=1000 H (Negative) mg/dL All other labs normal. Assessment and Plan (1) Abscess of buttock, left: Status: Acute Plan 38-year-old female patient with diabetes mellitus presenting with a painful red area of swelling in the left buttock. Examination does confirm an area of fluctuance consistent with an abscess. I recommended incision and drainage. This can be performed at the bedside. After discussion of the procedure, risks and alternatives, she consents to the procedure. I will return later today to perform this procedure at the bedside. She may resume her diet prior to this. Procedures Date of Service Date of Service: 02/22/24
--- NOTE | 2024-02-22 14:46 | MHC.CM.PN ---
EMR reviewed and per MD rounds, pt is not medically cleared due to management of bacteremia, and gluteal abscess, with pt receiving IV antibiotics and pending a surgical incision and drainage of abscess.
--- NOTE | 2024-02-22 15:23 | W.PM.IDCN ---
History of Present Illness Data of Consult Service Date: 02/22/24 Requesting physician: Samira Nagel Primary Care Provider: Unknown Physician HPI Reason for consult: sepsis She presents with left buttock pain and redness. She denies injection into buttock. She is using heroin. Blood cultures staph aureus. Review of Systems Review of Systems: Yes all other systems are reviewed and are negative PMFSH Past Medical History Medical History (Updated 02/22/24 @ 15:27 by Ann Urrutia MD) Sepsis PCOS (polycystic ovarian syndrome) Rash Polysubstance (excluding opioids) dependence, daily use Methadone maintenance therapy patient Anxiety and depression Diabetes Family History Family history: reviewed and not pertinent Social History Social History Household Members: Children Household Members Other:: daughter Housing: House Do you presently have visiting nurse or other home services: No Alcohol intake: current Alcohol intake frequency: does not drink Patient Tobacco Use Status: Former Tobacco user Tobacco use type: Cigarette Cigarette Packs Per Day: 3 Cigarettes Per Day: 60.0 Years Smoked: 2 Smoked in Last 30 Days: No e-Cigarette/Vaping Use: Never Used Use of substances other than those prescribed or required for medical reasons: Yes Substance Use Type: Heroin and Marijuana Substance Use Frequency: Daily Substance Use Frequency Other:: 4 Last Used Substance: Just Prior to Admission Currently Displaying Signs/Symptoms of Drug Intoxication Withdrawal: No Any prior treatment program specific to substance use: Yes Have you been hit, kicked, punched, or otherwise hurt by someone within the past year? If so, by whom?: No Do you feel safe in your current relationship?: No Current Relationship Is there a partner from a previous relationship who is making you feel unsafe now?: No Are you made to feel afraid or neglected: No Advance Directives: Yes Advance Directives on File: Yes Advance Directives Date on File: 01/11/22 Do you have a plan to hurt others: No Plan Recently lost weight without trying: Yes How much weight loss: 2-13 pounds Nutrition Risks: No Nutritional Risk Patient : No : No Poor oral hygiene: No service: No Current occupational status: unemployed Meds Allergies Allergy/AdvReac Type Severity Reaction Status Date / Time No Known Allergies Allergy Verified 02/20/24 21:08 Active Medications: Current Medications Amlodipine Besylate (Amlodipine Besylate 2.5 Mg Tablet) 7.5 mg PO DAILY [facility]; Protocol Last Admin: 02/22/24 07:44 Dose: 7.5 mg Enoxaparin Sodium (Enoxaparin Sodium 40 Mg/0.4 Ml Syringe) 40 mg SUBCUT Q24H [facility] Last Admin: 02/22/24 07:45 Dose: 40 mg Dextrose (D10) 250 mls @ 750 mls/hr IV Q30M PRN PRN Reason: BG <70 Vancomycin HCl 1,250 mg/ (Sodium Chloride) 250 mls @ 166.667 mls/hr IV Q12H [facility] Last Infusion: 02/22/24 07:38 Dose: Infused Potassium Phosphate (Kphos) 15 mmol in 250 mls @ 62.5 mls/hr IV Q4H [facility] Stop: 02/22/24 20:14 Last Admin: 02/22/24 12:29 Dose: 62.5 mls/hr Insulin Glargine (Insulin Glargine,Hum.Rec.Anlog 100 Unit/Ml 10 Ml Vial) 15 unit SUBCUT DAILY [facility] Last Admin: 02/22/24 09:12 Dose: 15 unit Insulin Human Lispro (Insulin Lispro 100 Unit/Ml 3 Ml Vial) 0 unit SUBCUT QIDACHS [facility]; Protocol Last Admin: 02/22/24 11:36 Dose: 8 unit Lisinopril (Lisinopril 5 Mg Tablet) 5 mg PO DAILY [facility]; Protocol Last Admin: 02/22/24 07:45 Dose: 5 mg Methadone HCl (Methadone Hcl 20 Mg/2 Ml Oral.Conc) 50 mg PO DAILY [facility] Last Admin: 02/22/24 09:57 Dose: 50 mg Ondansetron HCl (Ondansetron Hcl 4 Mg/2 Ml Vial) 4 mg IVPUSH Q8H PRN PRN Reason: Nausea and Vomiting Last Admin: 02/21/24 20:02 Dose: 4 mg Pharmacy Consult (Consult Rx Vancomycin Dosing) 1 each MISCELLANE DAILY PRN PRN Reason: Consult order Home Medications ?Medication ?Instructions ?Recorded ?Confirmed ?Last Taken ?Type methadone 10 mg/mL oral concentrate 100 mg PO DAILY 01/10/22 02/22/24 02/12/24 History Physical Exam Vital Signs: Vital Signs: Last Vital Signs Temp 98.0 F 02/22/24 11:23 Pulse 86 02/22/24 11:23 Resp 20 02/22/24 11:23 BP 144/72 H 02/22/24 11:23 Pulse Ox 96 02/22/24 11:23 O2 Del Method Room Air 02/22/24 11:23 BMI result Body Mass Index 40.9 Back/Spine/Pelvis: Other: swelling /redness left buttock Results Labs 02/22/24 09:11 02/22/24 09:08 Labs: Short CBC 02/22/24 Range/Units 09:11 WBC 19.2 H (4.8-10.8) X10*3/uL Hgb 9.8 L (12.0-16.0) g/dl Hct 29.3 L (37.0-47.0) % Plt Count 439 H (160-400) X10*3/uL BMP 02/22/24 09:08 Sodium 128 L Potassium 3.2 L Chloride 98 Carbon Dioxide 17 L BUN 5 L Creatinine 0.63 Calcium 8.9 Microbiology Microbiology Results: Microbiology 02/21/24 00:05 Blood - Venous Blood Culture - Preliminary Staphylococcus aureus 02/22/24 06:00 Blood - Venous Blood Culture - Final 02/20/24 23:07 Blood - Venous Blood Culture - Preliminary Staphylococcus aureus Assessment and Plan (1) Abscess of buttock, left: Status: Acute (2) Sepsis: Status: Acute Plan Sepsis with leukocytosis and tachycardia staph infection buttock no evidence of necrotizing fasciitis at this time Continue Vancomycin See Surgery Add back zosyn if necrotizing fasciitis found Will need four weeks IV antibiotics at facility Check echo/ Check HIV and Hepatitis C.
--- NOTE | 2024-02-22 15:52 | MHC.RECOVRN ---
Briefly met with pt in 462 after consult placed to Addiction Medicine. Pt had presented to the ED after running out of HTN medications and DM test strips. Pt also has large wound on upper left arm, reporting n/v and fatigue. Pt also reports substance use. Upon evaluation, pt admitted for DKA, bacteremia, and cellulitis. Pt currently on methadone through [facility] [place], 100 mg last dosed 02/12/24. Pt received 50 mg methadone this morning. Pt laying in bed, eyes closed, briefly wakes to voice, difficult to engage in conversation, appears comfortable. Pt reporting pain. Pt reports heroin/fentanyl use, 1 bundle daily, IV, x a few months, last use prior to arrival. Pt reports she has been on methadone x a few years. Pt not currently reporting withdrawal symptoms, requesting to be left to rest. Denies questions or concerns for t/w. Discussed with Marivel Bentley APRN.
--- NOTE | 2024-02-22 15:54 | PM.EVENT ---
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
[2024-02-22 15:59] LABS: Glucose, Whole Blood 300 mg/dL (60-115)
[2024-02-22] MEDS: LORazepam 1 MG TABLET PO (17:21)
--- NOTE | 2024-02-22 18:01 | HE.PHANOTE ---
RE [facility]S TROUGH RESULTED AT 5; CORRELATED AUC <200. WILL INCREASE DOSE TO 1500 MG Q8H. RENAL INDICES WNL. CONSIDER CLOSER MONITORING DUE TO RISK OF DOSE DUMPING; NOTE BMI IS 41. NEXT TROUGH ORDERED FOR 02/22 @1700. SUSPECTED AUC 516, TROUGH 14.6 THANKS [facility]INA
[2024-02-22] MEDS: vancomycin HCL 1,500 MG in 0.9 % Sodium Chloride 500 ML 333.33 MG IV (19:18)
[2024-02-22] MEDS: ondansetron HCL 4 MG/2 ML VIAL IVPUSH (19:19)
[2024-02-22] MEDS: Morphine Sulfate 2 MG/ML CARTRIDGE IVPUSH ×2 (19:20→23:43)
[2024-02-22 20:52] LABS: Anion Gap 16 (12-20); Blood Urea Nitrogen 4 mg/dL (9-16); Calcium 8.7 mg/dL (8.4-10.2); Carbon Dioxide 23 mmol/L (22-29); Chloride 95 mmol/L (96-108); Creatinine Clr Calc Pharmacy 182.7; Estimated Glomerular Filt Rate > 60; Glucose Random 298 mg/dL (60-115); Potassium 3.4 mmol/L (3.3-5.1); Sodium 131 mmol/L (135-145)
[2024-02-22 21:34] LABS: Glucose, Whole Blood 294 mg/dL (60-115)
[2024-02-23] VITALS (9 sets, daily range): BP systolic 125–180; BP diastolic 60–82; PULSE 76–103; RESP 16–20; TEMP 36.1–36.7; O2SAT 92–99; BMI 41.1
[2024-02-23] MEDS: vancomycin HCL 1,500 MG in 0.9 % Sodium Chloride 500 ML 333.33 MG IV (02:51)
[2024-02-23] MEDS: LORazepam 1 MG TABLET PO ×2 (02:52→16:21)
[2024-02-23] MEDS: Morphine Sulfate 2 MG/ML CARTRIDGE IVPUSH ×5 (04:03→21:48)
[2024-02-23 07:38] LABS: Glucose, Whole Blood 360 mg/dL (60-115)
--- NOTE | 2024-02-23 07:55 | P.OP_ITS ---
Operative Note Operative Note Date of Service: 02/23/24 Narrative: Preoperative diagnosis: Abscess left buttock Postoperative diagnosis: Same Procedure: Incision and drainage abscess left buttock Surgeon: Jeremi Montano MD Emergency Preparedness Coordinator: None Anesthesia: Lidocaine 1% with epinephrine Indications for procedure: 38-year-old female patient presenting with a large left buttock abscess Operative findings: Large left buttock abscess Specimen: None Estimated blood loss: None Complications: None Procedure details: Procedure was performed at the bedside with the patient in the left lateral decubitus position. The site of surgery was confirmed by the patient in the left buttock. After assuring informed consent, the skin was prepped with Betadine and draped in a sterile fashion. Local anesthesia was then infiltrated over the central portion of the abscess. Eleven blade was then used to incise the large abscess. A large collection was drained. Wounds were irrigated with saline solution. Abscess cavity was then packed with quarter- inch Nu Gauze. Sterile dressings including 2 x 2 gauze and ABD pad were then applied. The patient tolerated the procedure well.
[2024-02-23] MEDS: Enoxaparin Sodium 40 MG/0.4 ML SYRINGE SUBCUT (07:59)
[2024-02-23] MEDS: amLODIPine Besylate 2.5 MG TABLET 7.5 MG PO (07:59)
[2024-02-23] MEDS: Insulin Lispro 100 UNIT/ML 3 ML VIAL SUBCUT ×4 (07:59→20:59)
[2024-02-23] MEDS: lisinopriL 5 MG TABLET PO (07:59)
[2024-02-23] MEDS: Insulin Glargine,Hum.rec.anlog 100 UNIT/ML 10 ML VIAL 15 UNIT SUBCUT (08:00)
[2024-02-23] MEDS: methADONE HCl 20 MG/2 ML ORAL.CONC 65 MG PO (08:00)
[2024-02-23 08:46] LABS: MANUAL DIFF FLAG NO
[2024-02-23 09:02] LABS: Basophils Absolute Auto 0.1 X10*3/uL (0.0-0.2); Basophils Percent Auto 0.8 % (0-2); Eosinophils Percent Auto 0.3 % (0-4); Hematocrit 30.2 % (37.0-47.0); Hemoglobin 9.9 g/dl (12.0-16.0); Imm Gran Abs Auto 0.65 X10*3/uL (0.00-0.03); Imm Gran Pct Auto 4.6 % (0.0-0.4); Lymphocytes Absolute Auto 1.8 X10*3/uL (1.2-4.9); Lymphocytes Percent Auto 12.5 % (20-40); Mean Corpuscular HGB Conc 32.8 g/dl (31.0-35.0); Mean Corpuscular Hemoglobin 25.1 pg (27.0-33.0); Mean Corpuscular Volume 76.6 fL (80.0-98.0); Mean Platelet Volume 8.6 fL (9.4-12.3); Monocytes Absolute Auto 1.1 X10*3/uL (0.1-1.2); Monocytes Percent Auto 7.9 % (2-11); Neutrophils Absolute Auto 10.4 x10*3/uL (2.0-8.3); Neutrophils Percent Auto 73.9 % (45-73); Platelet Count 467 X10*3/uL (160-400); Red Blood Count 3.94 X10*6/uL (4.20-5.50); Red Cell Distribution Width 14.1 % (11.0-16.0); White Blood Count 14.1 X10*3/uL (4.8-10.8)
[2024-02-23 09:24] LABS: Creatinine Clr Calc Pharmacy 160.9; Estimated Glomerular Filt Rate > 60
[2024-02-23 11:31] LABS: Glucose, Whole Blood 278 mg/dL (60-115)
[2024-02-23] MEDS: vancomycin HCL 1,500 MG in 0.9 % Sodium Chloride 500 ML 333.3 MG IV (11:57)
--- NOTE | 2024-02-23 13:55 | P.PNIM_ITS ---
Subjective Subjective Date of Service: 02/23/24 Interval History: Seen and examined this morning Follow-up for DKA, cellulitis Reporting nausea and vomiting. Denies fever Review of Systems Review of Systems: Yes all other systems are reviewed and are negative Constitutional Constitutional: Denies chills and Denies fever(s) Physical Exam 2 Vital Signs: Vital Signs: Last Vital Signs Temp 97.9 F 02/23/24 12:00 Pulse 88 02/23/24 12:00 Resp 18 02/23/24 12:00 BP 157/82 H 02/23/24 12:00 Pulse Ox 95 02/23/24 12:00 O2 Del Method Room Air 02/23/24 12:00 BMI result Body Mass Index 41.1 Appearing in no acute distress lung sounds are clear to auscultation heart regular rate rhythm, clear S1, S2 positive bowel sounds, abdomen is soft, nontender neuro patient is alert x3, no focal deficits Objective Data Active Medications Amlodipine Besylate (Amlodipine Besylate 2.5 Mg Tablet) 7.5 mg PO DAILY [facility]; Protocol Last Admin: 02/23/24 07:59 Dose: 7.5 mg Documented By: DALILA Enoxaparin Sodium (Enoxaparin Sodium 40 Mg/0.4 Ml Syringe) 40 mg SUBCUT Q24H [facility] Last Admin: 02/23/24 07:59 Dose: 40 mg Documented By: DALILA Dextrose (D10) 250 mls @ 750 mls/hr IV Q30M PRN PRN Reason: BG <70 Vancomycin HCl 1,500 mg/ (Sodium Chloride) 500 mls @ 333.333 mls/hr IV Q8H [facility] Last Admin: 02/23/24 11:57 Dose: 333.3 mls/hr Documented By: DALILA Insulin Glargine (Insulin Glargine,Hum.Rec.Anlog 100 Unit/Ml 10 Ml Vial) 15 unit SUBCUT DAILY [facility] Last Admin: 02/23/24 08:00 Dose: 15 unit Documented By: DALILA Insulin Human Lispro (Insulin Lispro 100 Unit/Ml 3 Ml Vial) 0 unit SUBCUT QIDACHS [facility]; Protocol Last Admin: 02/23/24 11:57 Dose: 6 unit Documented By: DALILA Lisinopril (Lisinopril 5 Mg Tablet) 5 mg PO DAILY [facility]; Protocol Last Admin: 02/23/24 07:59 Dose: 5 mg Documented By: DALILA Lorazepam (Lorazepam 1 Mg Tablet) 1 mg PO Q6H PRN PRN Reason: Anxiety Last Admin: 02/23/24 02:52 Dose: 1 mg Documented By: TOMAS Methadone HCl (Methadone Hcl 20 Mg/2 Ml Oral.Conc) 65 mg PO DAILY [facility] Last Admin: 02/23/24 08:00 Dose: 65 mg Documented By: DALILA Methadone HCl (Methadone Hcl 20 Mg/2 Ml Oral.Conc) 10 mg PO DAILY PRN PRN Reason: Opiate Withdrawal Morphine Sulfate (Morphine Sulfate 2 Mg/Ml Cartridge) 2 mg IVPUSH Q4H [facility]; Protocol PRN Reason: Pain, Severe (Pain Scale 7-10) Last Admin: 02/23/24 11:58 Dose: 2 mg Documented By: DALILA Ondansetron HCl (Ondansetron Hcl 4 Mg/2 Ml Vial) 4 mg IVPUSH Q8H PRN PRN Reason: Nausea and Vomiting Last Admin: 02/22/24 19:19 Dose: 4 mg Documented By: MILKA Pharmacy Consult (Consult Rx Vancomycin Dosing) 1 each MISCELLANE DAILY PRN PRN Reason: Consult order Labs 02/23/24 08:34 02/23/24 08:34 Labs: Laboratory Results - last 24 hr 02/22/24 02/22/24 02/22/24 15:47 17:10 20:14 MCV MCH MCHC RDW Plt Count MPV Immature Gran % (Auto) Neut % (Auto) Lymph % (Auto) [place] % (Auto) Eos % (Auto) Baso % (Auto) Lymph # (Auto) [place] # (Auto) Eos # (Auto) Baso # (Auto) Abs Immat Gran (auto) Absolute Neuts (auto) Absolute Nucleated RBC Nucleated RBC % (auto) Anion Gap 16 Estim Creat Clear Calc 182.7 Estimated GFR > 60 POC Glucose 300 H Random Glucose 298 H Calcium 8.7 Phosphorus Random Vancomycin 5.0 L 02/22/24 02/23/24 02/23/24 21:29 07:15 08:34 MCV 76.6 L MCH 25.1 L MCHC 32.8 RDW 14.1 Plt Count 467 H MPV 8.6 L Immature Gran % (Auto) 4.6 H Neut % (Auto) 73.9 H Lymph % (Auto) 12.5 L [place] % (Auto) 7.9 Eos % (Auto) 0.3 Baso % (Auto) 0.8 Lymph # (Auto) 1.8 [place] # (Auto) 1.1 Eos # (Auto) 0.0 Baso # (Auto) 0.1 Abs Immat Gran (auto) 0.65 H Absolute Neuts (auto) 10.4 H Absolute Nucleated RBC 0.000 Nucleated RBC % (auto) 0.0 Anion Gap Estim Creat Clear Calc 160.9 Estimated GFR > 60 POC Glucose 294 H 360 H* Random Glucose Calcium Phosphorus 2.0 L Random Vancomycin 02/23/24 11:26 MCV MCH MCHC RDW Plt Count MPV Immature Gran % (Auto) Neut % (Auto) Lymph % (Auto) [place] % (Auto) Eos % (Auto) Baso % (Auto) Lymph # (Auto) [place] # (Auto) Eos # (Auto) Baso # (Auto) Abs Immat Gran (auto) Absolute Neuts (auto) Absolute Nucleated RBC Nucleated RBC % (auto) Anion Gap Estim Creat Clear Calc Estimated GFR POC Glucose 278 H Random Glucose Calcium Phosphorus Random Vancomycin Microbiology Microbiology Results: Microbiology 02/22/24 09:11 Blood Culture - Preliminary Blood - Venous No growth after 24 hours. 02/21/24 00:05 Blood Culture - Final Blood - Venous Staphylococcus aureus 02/20/24 23:07 Blood Culture - Preliminary Blood - Venous Staphylococcus aureus 02/22/24 06:00 Blood Culture - Final Blood - Venous Assessment and Plan (1) Bacteremia: Status: Acute (2) Cellulitis: Status: Acute (3) Acute hyperglycemia: Status: Acute (4) Abscess of buttock, left: Status: Acute Plan This is a 38-year-old female with history of cyclical vomiting syndrome, uncontrolled diabetes, hypertension admitted to the ICU due to DKA Type 2 diabetes with hyperglycemia due to medication noncompliance DKA resolved Does not have PCP, has been unable to get diabetic medication Was started on Lantus in ICU, cover with sliding scale Buttock cellulitis Due to uncontrolled diabetes and size/location of cellulitis will obtain pelvis CT to rule out deeper infection-? showing gluteal abscess continue vancomycin and zosyn surgical consult>I&D today GPC bacteremia 2/2 cultures growing staph aureus, susceptibilities pending. Continue IV vancomycin likely skin source echo pending ID consult pending Surveillance blood cultures ordered, reported difficulty from phlebotomy in collecting Left arm wound Appears chronic, does not appear to be infected Wound care consult Opiate use disorder On methadone at baseline, dose confirmed 100 mg daily. Has not received since February 11 Plan to resume starting at 50 mg daily and titrate Addiction medicine consult ordered Pseudo hyponatremia Due to hyperglycemia low phos, low k replace and follow Hypertension Continue lisinopril, Norvasc Chronic microcytic anemia Above transfusion threshold Follow up CBC Morbid obesity BMI 40.9 Discussed importance of weight management as this may be contributing to worsening of other comorbidities Low albumin 3.1 DVT prophylaxis-Lovenox Patient requires ongoing inpatient stay for management of bacteremia, gluteal abscess, need for IV antibiotics and surgical evaluation Quality Stroke Does the patient have a stroke diagnosis?: No VTE Prior VTE?: No VTE Risk Level:: Medical - low VTE Device Contraindication: Treatment Not Indicated VTE Drug Contraindication: N/A - Med Ordered
[2024-02-23 16:13] LABS: Glucose, Whole Blood 296 mg/dL (60-115)
[2024-02-23 16:47] LABS: Anion Gap 15 (12-20); Blood Urea Nitrogen 3 mg/dL (9-16); Calcium 8.5 mg/dL (8.4-10.2); Carbon Dioxide 28 mmol/L (22-29); Chloride 92 mmol/L (96-108); Estimated Glomerular Filt Rate > 60; Glucose Random 330 mg/dL (60-115); Potassium 2.7 mmol/L (3.3-5.1); Sodium 132 mmol/L (135-145)
[2024-02-23] MEDS: Potassium Chloride ER 20 MEQ TAB.ER.PRT 40 MEQ PO (16:53)
[2024-02-23] MEDS: ondansetron HCL 4 MG/2 ML VIAL IVPUSH (17:02)
[2024-02-23 18:05] LABS: Vancomycin Random 22.9 mcg/mL (15-20)
--- NOTE | 2024-02-23 18:20 | HE.PHANOTE ---
Addendum entered by Nini Albert, [facility] 02/23/24 18:38: Also decided to push back timing of medication... Will change first dose of 1750 mg Q12H to be given at 2300, Next level will now be on 02/23 @2100 Addendum entered by Nini Albert, [facility] 02/23/24 18:24: will give 2 doses before getting a level on 02/23 @1700 to ensure safety and efficacy Original Note: RE [facility] Patients level came back this evening at 22.9. Patient was on 1500 mg Q8H. Trough went up from 5 to 22.9. Suspect dose dumping as patient has a high BMI and renal function does not show signs in injury. Scr was 0.66 this morning and 0.59 this evening. Will decrease frequency and change dose to 1750 mg Q12H. RX insight shows predicted AUC 497
[2024-02-23 20:29] LABS: Glucose, Whole Blood 302 mg/dL (60-115)
[2024-02-23] MEDS: vancomycin HCL 1,000 MG, vancomycin HCL 750 MG in 0.9 % Sodium Chloride 500 ML 267.5 MG IV (23:19)
[2024-02-24] VITALS (10 sets, daily range): BP systolic 125–183; BP diastolic 67–90; PULSE 82–100; RESP 15–169; TEMP 36.1–37.1; O2SAT 91–94; BMI 40.9
[2024-02-24] MEDS: LORazepam 1 MG TABLET PO ×2 (00:23→09:06)
[2024-02-24 03:31] LABS: Glucose, Whole Blood 273 mg/dL (60-115)
[2024-02-24 08:05] LABS: Glucose, Whole Blood 287 mg/dL (60-115)
[2024-02-24] MEDS: Enoxaparin Sodium 40 MG/0.4 ML SYRINGE SUBCUT (08:49)
[2024-02-24] MEDS: Insulin Lispro 100 UNIT/ML 3 ML VIAL SUBCUT ×7 (08:50→20:15)
[2024-02-24] MEDS: Potassium Chloride ER 20 MEQ TAB.ER.PRT PO (08:51)
[2024-02-24] MEDS: Insulin Glargine,Hum.rec.anlog 100 UNIT/ML 10 ML VIAL 15 UNIT SUBCUT (08:51)
[2024-02-24] MEDS: lisinopriL 5 MG TABLET PO (08:51)
[2024-02-24] MEDS: amLODIPine Besylate 2.5 MG TABLET 7.5 MG PO (08:51)
[2024-02-24] MEDS: methADONE HCl 20 MG/2 ML ORAL.CONC 65 MG PO (08:52)
[2024-02-24] MEDS: Morphine Sulfate 2 MG/ML CARTRIDGE IVPUSH ×3 (08:55→20:41)
[2024-02-24] MEDS: ondansetron HCL 4 MG/2 ML VIAL IVPUSH ×2 (09:06→20:44)
[2024-02-24 09:15] LABS: Anion Gap 15 (12-20); Blood Urea Nitrogen 3 mg/dL (9-16); Calcium 8.1 mg/dL (8.4-10.2); Carbon Dioxide 29 mmol/L (22-29); Chloride 91 mmol/L (96-108); Creatinine Clr Calc Pharmacy 162.9; Estimated Glomerular Filt Rate > 60; Glucose Random 332 mg/dL (60-115); Sodium 132 mmol/L (135-145)
--- NOTE | 2024-02-24 09:43 | HO.PM.IMPN ---
Subjective Subjective Date of Service: 02/24/24 Interval History: Seen and examined this morning Follow-up for DKA, cellulitis pain to buttock wound Review of Systems Review of Systems: Yes all other systems are reviewed and are negative Constitutional Constitutional: Denies chills and Denies fever(s) Physical Exam Vital Signs: Vital Signs: Last Vital Signs Temp 97.0 F 02/24/24 08:00 Pulse 87 02/24/24 08:00 Resp 169 H 02/24/24 08:00 BP 183/90 H 02/24/24 08:51 Pulse Ox 92 02/24/24 08:00 O2 Del Method Room Air 02/24/24 08:00 BMI result Body Mass Index 40.9 Appearing in no acute distress lung sounds are clear to auscultation heart regular rate rhythm, clear S1, S2 positive bowel sounds, abdomen is soft, nontender neuro patient is alert x3, no focal deficits Buttock wound Objective Data Active Medications Amlodipine Besylate (Amlodipine Besylate 2.5 Mg Tablet) 7.5 mg PO DAILY [facility]; Protocol Last Admin: 02/24/24 08:51 Dose: 7.5 mg Documented By: DAILLA Enoxaparin Sodium (Enoxaparin Sodium 40 Mg/0.4 Ml Syringe) 40 mg SUBCUT Q24H [facility] Last Admin: 02/24/24 08:49 Dose: 40 mg Documented By: DALILA Dextrose (D10) 250 mls @ 750 mls/hr IV Q30M PRN PRN Reason: BG <70 Vancomycin HCl 1,000 mg/Vancomycin HCl 750 mg/ Sodium Chloride 535 mls @ 267.5 mls/hr IV Q12H [facility] Last Admin: 02/24/24 02:53 Dose: Not Given Documented By: GEGE Non-Admin Reason: Duplicate Order Insulin Glargine (Insulin Glargine,Hum.Rec.Anlog 100 Unit/Ml 10 Ml Vial) 15 unit SUBCUT DAILY [facility] Last Admin: 02/24/24 08:51 Dose: 15 unit Documented By: DALILA Insulin Human Lispro (Insulin Lispro 100 Unit/Ml 3 Ml Vial) 0 unit SUBCUT QIDACHS [facility]; Protocol Last Admin: 02/24/24 08:50 Dose: 6 unit Documented By: DALILA Insulin Human Lispro (Insulin Lispro 100 Unit/Ml 3 Ml Vial) 5 unit SUBCUT QIDACHS [facility] Lisinopril (Lisinopril 5 Mg Tablet) 5 mg PO DAILY [facility]; Protocol Last Admin: 02/24/24 08:51 Dose: 5 mg Documented By: DALILA Lorazepam (Lorazepam 1 Mg Tablet) 1 mg PO Q6H PRN PRN Reason: Anxiety Last Admin: 02/24/24 09:06 Dose: 1 mg Documented By: DALILA Methadone HCl (Methadone Hcl 20 Mg/2 Ml Oral.Conc) 65 mg PO DAILY [facility] Last Admin: 02/24/24 08:52 Dose: 65 mg Documented By: DALILA Methadone HCl (Methadone Hcl 20 Mg/2 Ml Oral.Conc) 10 mg PO DAILY PRN PRN Reason: Opiate Withdrawal Morphine Sulfate (Morphine Sulfate 2 Mg/Ml Cartridge) 2 mg IVPUSH Q4H [facility]; Protocol PRN Reason: Pain, Severe (Pain Scale 7-10) Last Admin: 02/24/24 08:55 Dose: 2 mg Documented By: DALILA Ondansetron HCl (Ondansetron Hcl 4 Mg/2 Ml Vial) 4 mg IVPUSH Q8H PRN PRN Reason: Nausea and Vomiting Last Admin: 02/24/24 09:06 Dose: 4 mg Documented By: DALILA Pharmacy Consult (Consult Rx Vancomycin Dosing) 1 each MISCELLANE DAILY PRN PRN Reason: Consult order Potassium Chloride (Potassium Chloride Er 20 Meq Tab.Er.Prt) 20 meq PO DAILY [facility] Last Admin: 02/24/24 08:51 Dose: 20 meq Documented By: DALILA Labs 02/23/24 08:34 02/24/24 08:29 Labs: Laboratory Results - last 24 hr 02/23/24 02/23/24 02/23/24 11:26 14:51 16:05 Anion Gap 15 Estim Creat Clear Calc 180.0 Estimated GFR > 60 POC Glucose 278 H 296 H Random Glucose 330 H Calcium 8.5 Random Vancomycin 02/23/24 02/23/24 02/24/24 17:09 20:13 03:26 Anion Gap Estim Creat Clear Calc Estimated GFR POC Glucose 302 H 273 H Random Glucose Calcium Random Vancomycin 22.9 H 02/24/24 02/24/24 07:31 08:29 Anion Gap 15 Estim Creat Clear Calc 162.9 Estimated GFR > 60 POC Glucose 287 H Random Glucose 332 H Calcium 8.1 L Random Vancomycin Microbiology Microbiology Results: Microbiology 02/22/24 09:11 Blood Culture - Preliminary Blood - Venous No growth after 24 hours. 02/21/24 00:05 Blood Culture - Final Blood - Venous Staphylococcus aureus 02/20/24 23:07 Blood Culture - Preliminary Blood - Venous Staphylococcus aureus Assessment and Plan (1) Bacteremia: Status: Acute (2) Cellulitis: Status: Acute (3) Acute hyperglycemia: Status: Acute (4) Abscess of buttock, left: Status: Acute Plan This is a 38-year-old female with history of cyclical vomiting syndrome, uncontrolled diabetes, hypertension admitted to the ICU due to DKA Type 2 diabetes with hyperglycemia due to medication noncompliance DKA resolved Does not have PCP, has been unable to get diabetic medication Was started on Lantus in ICU, cover with sliding scale mealtime insulin added Buttock cellulitis Due to uncontrolled diabetes and size/location of cellulitis, pelvis CT showing gluteal abscess continue vancomycin and zosyn surgical consult>s/p I&D 02/23/24 GPC bacteremia 2/2 cultures growing staph aureus Continue IV vancomycin likely skin source echo EF 70%, no notation of vegetation ID consult>check HIV and hep c midline ordered Left arm wound Appears chronic, does not appear to be infected Wound care consult pending Opiate use disorder On methadone at baseline, dose confirmed 100 mg daily. Has not received since February 11 Plan to resume starting at 50 mg daily and titrate Addiction medicine following Pseudo hyponatremia Due to hyperglycemia low phos, low k replace and follow Hypertension Continue lisinopril, Norvasc Chronic microcytic anemia Above transfusion threshold Follow up CBC Morbid obesity BMI 40.9 Discussed importance of weight management as this may be contributing to worsening of other comorbidities Low albumin 3.1 DVT prophylaxis-Lovenox Attending Dr. Morales full code Patient requires ongoing inpatient stay for management of bacteremia, gluteal abscess, need for IV antibiotics and surgical evaluation Quality Stroke Does the patient have a stroke diagnosis?: No VTE Prior VTE?: No VTE Risk Level:: Medical - low VTE Device Contraindication: Treatment Not Indicated VTE Drug Contraindication: N/A - Med Ordered
--- NOTE | 2024-02-24 09:48 | PM.PNGS ---
Subjective Subjective Date of Service: 02/24/24 Interval history: Patient is symptomatically improved this morning. A large amount of purulence discharge is noted dressings have been changed several times during the night. Physical Exam Vital Signs: Vital Signs: Last Vital Signs Temp 97.0 F 02/24/24 08:00 Pulse 87 02/24/24 08:00 Resp 169 H 02/24/24 08:00 BP 183/90 H 02/24/24 08:51 Pulse Ox 92 02/24/24 08:00 O2 Del Method Room Air 02/24/24 08:00 BMI result Body Mass Index 40.9 Const: General: no acute distress and tired appearing Nutritional Appearance: obese Orientation/consciousness: patient oriented x3 Resp: Effort & Inspection: normal respiratory effort Back/Spine/Pelvis: Other: Incision and drainage site is open and draining. Packing apparently was removed during the night during a dressing change. Large amount of purulence discharge noted on dressings. Clean dressing applied. Surrounding erythema appears much improved. Neuro: General: patient oriented x3 Objective Data Active Medications Amlodipine Besylate (Amlodipine Besylate 2.5 Mg Tablet) 7.5 mg PO DAILY [facility]; Protocol Last Admin: 02/24/24 08:51 Dose: 7.5 mg Documented By: DALILA Enoxaparin Sodium (Enoxaparin Sodium 40 Mg/0.4 Ml Syringe) 40 mg SUBCUT Q24H [facility] Last Admin: 02/24/24 08:49 Dose: 40 mg Documented By: DALILA Dextrose (D10) 250 mls @ 750 mls/hr IV Q30M PRN PRN Reason: BG <70 Vancomycin HCl 1,000 mg/Vancomycin HCl 750 mg/ Sodium Chloride 535 mls @ 267.5 mls/hr IV Q12H [facility] Last Admin: 02/24/24 02:53 Dose: Not Given Documented By: GEGE Non-Admin Reason: Duplicate Order Potassium Chloride (Potassium Chloride/H20) 10 meq in 100 mls @ 100 mls/hr IV Q1H [facility] Stop: 02/24/24 11:44 Insulin Glargine (Insulin Glargine,Hum.Rec.Anlog 100 Unit/Ml 10 Ml Vial) 15 unit SUBCUT DAILY [facility] Last Admin: 02/24/24 08:51 Dose: 15 unit Documented By: DALILA Insulin Human Lispro (Insulin Lispro 100 Unit/Ml 3 Ml Vial) 0 unit SUBCUT QIDACHS [facility]; Protocol Last Admin: 02/24/24 08:50 Dose: 6 unit Documented By: DALILA Insulin Human Lispro (Insulin Lispro 100 Unit/Ml 3 Ml Vial) 5 unit SUBCUT QIDACHS [facility] Lisinopril (Lisinopril 5 Mg Tablet) 5 mg PO DAILY [facility]; Protocol Last Admin: 02/24/24 08:51 Dose: 5 mg Documented By: DALILA Lorazepam (Lorazepam 1 Mg Tablet) 1 mg PO Q6H PRN PRN Reason: Anxiety Last Admin: 02/24/24 09:06 Dose: 1 mg Documented By: DALILA Methadone HCl (Methadone Hcl 20 Mg/2 Ml Oral.Conc) 65 mg PO DAILY [facility] Last Admin: 02/24/24 08:52 Dose: 65 mg Documented By: DALILA Methadone HCl (Methadone Hcl 20 Mg/2 Ml Oral.Conc) 10 mg PO DAILY PRN PRN Reason: Opiate Withdrawal Morphine Sulfate (Morphine Sulfate 2 Mg/Ml Cartridge) 2 mg IVPUSH Q4H PRN; Protocol PRN Reason: Pain, Severe (Pain Scale 7-10) Last Admin: 02/24/24 08:55 Dose: 2 mg Documented By: DALILA Ondansetron HCl (Ondansetron Hcl 4 Mg/2 Ml Vial) 4 mg IVPUSH Q8H PRN PRN Reason: Nausea and Vomiting Last Admin: 02/24/24 09:06 Dose: 4 mg Documented By: DALILA Pharmacy Consult (Consult Rx Vancomycin Dosing) 1 each MISCELLANE DAILY PRN PRN Reason: Consult order Potassium Chloride (Potassium Chloride Er 20 Meq Tab.Er.Prt) 20 meq PO DAILY [facility] Last Admin: 02/24/24 08:51 Dose: 20 meq Documented By: DALILA Labs 02/23/24 08:34 02/24/24 08:29 Labs: Laboratory Results - last 24 hr 02/23/24 02/23/24 02/23/24 11:26 14:51 16:05 Anion Gap 15 Estim Creat Clear Calc 180.0 Estimated GFR > 60 POC Glucose 278 H 296 H Random Glucose 330 H Calcium 8.5 Random Vancomycin 02/23/24 02/23/2402/23/24 17:09 20:13 03:26 Anion Gap Estim Creat Clear Calc Estimated GFR POC Glucose 302 H 273 H Random Glucose Calcium Random Vancomycin 22.9 H 02/24/24 02/24/24 07:31 08:29 Anion Gap 15 Estim Creat Clear Calc 162.9 Estimated GFR > 60 POC Glucose 287 H Random Glucose 332 H Calcium 8.1 L Random Vancomycin Microbiology Microbiology Results: Microbiology 02/22/24 09:11 Blood Culture - Preliminary Blood - Venous No growth after 24 hours. 02/21/24 00:05 Blood Culture - Final Blood - Venous Staphylococcus aureus 02/20/24 23:07 Blood Culture - Preliminary Blood - Venous Staphylococcus aureus Procedures Date of Service Date of Service: 02/24/24 Progress Note: A&P Assessment and plan (1) Abscess of buttock, left: Status: Acute Plan POD #1 following incision and drainage of a large perirectal abscess. The wounds are open and draining appropriately. Continue with local wound care. She may benefit from warm soaks/Sitz baths. We will continue to monitor Time Spent With Patient Time: Total time managing care of this patient today ____ minutes. Quality Stroke Does the patient have a stroke diagnosis?: No VTE Prior VTE?: No VTE Risk Level:: Medical - low VTE Device Contraindication: Treatment Not Indicated VTE Drug Contraindication: N/A - Med Ordered
[2024-02-24] MEDS: Potassium Chloride/H20 10 MEQ/100 ML PIGGYBACK 100 MEQ IV ×2 (10:05→11:45)
[2024-02-24 11:36] LABS: Glucose, Whole Blood 298 mg/dL (60-115)
[2024-02-24] MEDS: vancomycin HCL 1,000 MG, vancomycin HCL 750 MG in 0.9 % Sodium Chloride 500 ML 267.5 MG IV (14:21)
[2024-02-24 16:31] LABS: Glucose, Whole Blood 260 mg/dL (60-115)
[2024-02-24 20:04] LABS: Glucose, Whole Blood 267 mg/dL (60-115)
[2024-02-24 22:40] LABS: Vancomycin Random 13.9 mcg/mL (15-20)
[2024-02-25] VITALS (8 sets, daily range): BP systolic 121–172; BP diastolic 58–84; PULSE 81–93; RESP 16–20; TEMP 36.1–37.2; O2SAT 92–94
[2024-02-25] MEDS: vancomycin HCL 1,000 MG, vancomycin HCL 750 MG in 0.9 % Sodium Chloride 500 ML 267.5 MG IV ×2 (02:31→14:28)
[2024-02-25] MEDS: Morphine Sulfate 2 MG/ML CARTRIDGE IVPUSH ×2 (03:04→13:26)
[2024-02-25 07:05] LABS: Glucose, Whole Blood 243 mg/dL (60-115)
--- NOTE | 2024-02-25 07:46 | P.CDIM_ITS ---
PROVIDER RESPONSE TEXT: To clarify, the appropriate diagnosis supported by the clinical indicators: Other (explain): no documentation of sepsis in other clinical notes QUERY TEXT: PHYSICIAN'S DOCUMENTATION REQUEST Date of Query: 02/25/2024 07:29 AM EDT Patient Name: Misty Schmitt Admit Date: 02/21/2024 Dear Tameka Pizano, A review of the medical record indicates additional documentation may be needed. Please review below and update the documentation accordingly: The patient's infectious clinical indicators include: Infectious disease consult note dated 02/21 - Reason for consult: Sepsis, she presents with left butto ck pain and redness. Plan: Sepsis with leukocytosis and tachycardia, staph infection buttock. Continue four weeks IV antibiotics. Progress notes within the Plan: GPC bacteremia 2/2 cultures growing staph aureus, continue IV vancomycin, likely skin source. Bacteremia Abnormal laboratory test - does not indicate a clinically ill patient Sepsis Systemic manifestations of infection, with 2 or more SIRS criteria which include: Fever > 100.4?F or hypothermia < 96.8?F Leukocytosis - WBC > 12,000 or leukopenia, WBC < 4,000, or > 10% bands Tachycardia- > 90 beats/minute Tachypnea- RR > 20 breaths/minute or PaCO2 < 32mmHg Based on the above information and the recognized standard for sepsis, could you please clarify if th is diagnoses is still accurate and reflective of the patient's condition to ensure quality of the medical record. Sepsis is/was present suspected, possible, probable, resolved etc. After study sepsis has been ruled out Other (explain) Clinically unable to determine (explain) Thank you, Mary Napoles, CCS, CDIS Use of terms such as suspected, likely, concern for, or probable (associated with a specific diagnosi s that is being evaluated, monitored, or treated as if it exists) are acceptable and can be coded in the inpatient se tting, when documented at the time of discharge. Please use your independent medical judgment in providing your response. THIS QUERY IS PART OF THE PERMANENT MEDICAL RECORD
[2024-02-25] MEDS: Potassium Chloride ER 20 MEQ TAB.ER.PRT PO (07:58)
[2024-02-25] MEDS: Enoxaparin Sodium 40 MG/0.4 ML SYRINGE SUBCUT (07:58)
[2024-02-25] MEDS: lisinopriL 5 MG TABLET PO (07:59)
[2024-02-25] MEDS: Insulin Glargine,Hum.rec.anlog 100 UNIT/ML 10 ML VIAL 15 UNIT SUBCUT (07:59)
[2024-02-25] MEDS: amLODIPine Besylate 2.5 MG TABLET 7.5 MG PO (07:59)
[2024-02-25] MEDS: Insulin Lispro 100 UNIT/ML 3 ML VIAL SUBCUT ×8 (07:59→21:10)
[2024-02-25] MEDS: methADONE HCl 20 MG/2 ML ORAL.CONC 75 MG PO (07:59)
--- NOTE | 2024-02-25 09:41 | HO.PM.IMPN ---
Subjective Subjective Date of Service: 02/25/24 Interval History: Seen and examined this morning Follow-up for DKA, cellulitis pain to buttock wound Review of Systems Review of Systems: Yes all other systems are reviewed and are negative Constitutional Constitutional: Denies chills and Denies fever(s) Physical Exam Vital Signs: Vital Signs: Last Vital Signs Temp 98.0 F 02/25/24 07:44 Pulse 88 02/25/24 07:44 Resp 18 02/25/24 07:44 BP 172/84 H 02/25/24 07:44 Pulse Ox 92 02/25/24 07:44 O2 Del Method Room Air 02/25/24 07:44 BMI result Body Mass Index 40.9 Objective Data Active Medications Amlodipine Besylate (Amlodipine Besylate 2.5 Mg Tablet) 7.5 mg PO DAILY [facility]; Protocol Last Admin: 02/25/24 07:59 Dose: 7.5 mg Documented By: JAYCEE Enoxaparin Sodium (Enoxaparin Sodium 40 Mg/0.4 Ml Syringe) 40 mg SUBCUT Q24H [facility] Last Admin: 02/25/24 07:58 Dose: 40 mg Documented By: JAYCEE Dextrose (D10) 250 mls @ 750 mls/hr IV Q30M PRN PRN Reason: BG <70 Vancomycin HCl 1,000 mg/Vancomycin HCl 750 mg/ Sodium Chloride 535 mls @ 267.5 mls/hr IV Q12H [facility] Last Infusion: 02/25/24 06:47 Dose: Infused Documented By: BECK Insulin Glargine (Insulin Glargine,Hum.Rec.Anlog 100 Unit/Ml 10 Ml Vial) 15 unit SUBCUT DAILY [facility] Last Admin: 02/25/24 07:59 Dose: 15 unit Documented By: JAYCEE Insulin Human Lispro (Insulin Lispro 100 Unit/Ml 3 Ml Vial) 0 unit SUBCUT QIDACHS [facility]; Protocol Last Admin: 02/25/24 07:59 Dose: 4 unit Documented By: JAYCEE Insulin Human Lispro (Insulin Lispro 100 Unit/Ml 3 Ml Vial) 5 unit SUBCUT QIDACHS [facility] Last Admin: 02/25/24 07:59 Dose: 5 unit Documented By: JAYCEE Lisinopril (Lisinopril 5 Mg Tablet) 5 mg PO DAILY [facility]; Protocol Last Admin: 02/25/24 07:59 Dose: 5 mg Documented By: JAYCEE Lorazepam (Lorazepam 1 Mg Tablet) 1 mg PO Q6H PRN PRN Reason: Anxiety Last Admin: 02/24/24 09:06 Dose: 1 mg Documented By: DALILA Methadone HCl (Methadone Hcl 20 Mg/2 Ml Oral.Conc) 10 mg PO DAILY PRN PRN Reason: Opiate Withdrawal Methadone HCl (Methadone Hcl 20 Mg/2 Ml Oral.Conc) 75 mg PO DAILY [facility] Last Admin: 02/25/24 07:59 Dose: 75 mg Documented By: JAYCEE Morphine Sulfate (Morphine Sulfate 2 Mg/Ml Cartridge) 2 mg IVPUSH Q4H PRN; Protocol PRN Reason: Pain, Severe (Pain Scale 7-10) Last Admin: 02/25/24 03:04 Dose: 2 mg Documented By: BECK Ondansetron HCl (Ondansetron Hcl 4 Mg/2 Ml Vial) 4 mg IVPUSH Q8H PRN PRN Reason: Nausea and Vomiting Last Admin: 02/24/24 20:44 Dose: 4 mg Documented By: BECK Pharmacy Consult (Consult Rx Vancomycin Dosing) 1 each MISCELLANE DAILY PRN PRN Reason: Consult order Potassium Chloride (Potassium Chloride Er 20 Meq Tab.Er.Prt) 20 meq PO DAILY [facility] Last Admin: 02/25/24 07:58 Dose: 20 meq Documented By: JAYCEE Labs 02/23/24 08:34 02/24/24 08:29 Labs: Laboratory Results - last 24 hr 02/24/24 02/24/24 02/24/24 11:30 16:27 19:58 POC Glucose 298 H 260 H 267 H Random Vancomycin 02/24/24 02/25/24 22:10 07:00 POC Glucose 243 H Random Vancomycin 13.9 L Microbiology Microbiology Results: Microbiology 02/22/24 09:11 Blood Culture - Preliminary Blood - Venous No growth after 48 hours. 02/20/24 23:07 Blood Culture - Final Blood - Venous Staphylococcus aureus Assessment and Plan (1) Bacteremia: Status: Acute (2) Cellulitis: Status: Acute (3) Acute hyperglycemia: Status: Acute (4) Abscess of buttock, left: Status: Acute Plan This is a 38-year-old female with history of cyclical vomiting syndrome, uncontrolled diabetes, hypertension admitted to the ICU due to DKA Type 2 diabetes with hyperglycemia due to medication noncompliance DKA resolved Does not have PCP, has been unable to get diabetic medication Was started on Lantus in ICU, cover with sliding scale mealtime insulin added Buttock cellulitis Due to uncontrolled diabetes and size/location of cellulitis, pelvis CT showing gluteal abscess continue vancomycin and zosyn surgical consult>s/p I&D 02/23/24 staph bacteremia 2/2 cultures growing staph aureus Continue IV vancomycin likely skin source echo EF 70%, no notation of vegetation ID consult>check HIV and hep c midline ordered Left arm wound Appears chronic, does not appear to be infected Wound care consult pending Opiate use disorder On methadone at baseline, dose confirmed 100 mg daily. Has not received since February 11 Plan to resume starting at 50 mg daily and titrate Addiction medicine following Pseudo hyponatremia Due to hyperglycemia low phos, low k replace and follow Hypertension Continue lisinopril, Norvasc Chronic microcytic anemia Above transfusion threshold Follow up CBC Morbid obesity BMI 40.9 Discussed importance of weight management as this may be contributing to worsening of other comorbidities Low albumin 3.1 DVT prophylaxis-Lovenox Attending Dr. Richardson full code Patient requires ongoing inpatient stay for management of bacteremia, gluteal abscess, need for IV antibiotics and surgical evaluation Quality Stroke Does the patient have a stroke diagnosis?: No VTE Prior VTE?: No VTE Risk Level:: Medical - low VTE Device Contraindication: Treatment Not Indicated VTE Drug Contraindication: N/A - Med Ordered
--- NOTE | 2024-02-25 09:57 | HO.WOUND ---
Wound Consult: Initial 38yr old?female admitted to [facility] on 02/21/24 - See progress notes and H&P for detailed history.? Wound consult follow up for Left upper arm wound secondary to IV drug injection site.? Patient agreeable to assessment and photo documentation - patient is knonw to this process description writer from previous admissions. We discussed d/c to home and reports she has access to a shower and supplies for the left arm. She is aware of [facility] and understands she can continue to seek their help for wound care needs and assessment for continued healing of the left arm. The perianal areas was not assessed and is currntly managed by the general surgery team. ?Left Upper Arm previous assessment 11/28/23 Left Arm 02/25/24 Etiology: Ulceration - secondary to IVDU Injection site Measurements: 3cm x 2cm x 0.2cm Wound Bed: Dried scabbed wound bed with scattered moist areas Drainage / Odor: none noted Edges: ? irregular and adherent [place] wound: [place] scar tissue with irregular healing formation - No Induration, Fluctuance noted Pain: Denies at the time of my assessment Goals of Treatment: ? Moisture management with xeroform and foam dressing No new topical recommendations at this time. Recommendations: 1. Turn and Reposition every 2 hours and as needed for patient comfort.? Use pillows or wedges to support off loading positions. 2. Off Load all bony prominences with use of pillows and heel boots if needed.? Apply Preventative foams where needed. ? 3. Provide adequate and supplemental nutrition - Nutrition following.? 4. Maintain blood glucose levels per Providers order. 5. Left Upper Arm - Cleanse with cleanser such as NS or wound cleanser, Pat dry. Apply skin prep to periwound, cover wound bed with xeroform cover with Foam dressing change every other day. Continue to seek topical care and treatment with [facility]. Re-consult wound care Nurse for wound deterioration or wound changes.
[2024-02-25 10:39] LABS: HIV AB/AG Nonreactive (Nonreactive); HIV Num 1 0.04 S/CO (0.00-0.99); ~HepC Num1 0.24 S/CO (0.00-0.79); ~Hepatitis C Antibody Nonreactive (Nonreactive)
--- NOTE | 2024-02-25 10:41 | PM.PNGS ---
Subjective Subjective Date of Service: 02/25/24 Interval history: Overall patient feels improved today. She does have some pain in the perirectal region especially when lying in bed. Dressings have been changed several times during the night and are producing copious amounts of pus. Physical Exam Vital Signs: Vital Signs: Last Vital Signs Temp 98.0 F 02/25/24 07:44 Pulse 88 02/25/24 07:44 Resp 18 02/25/24 07:44 BP 172/84 H 02/25/24 07:44 Pulse Ox 92 02/25/24 07:44 O2 Del Method Room Air 02/25/24 07:44 BMI result Body Mass Index 40.9 Const: General: comfortable Nutritional Appearance: obese Orientation/consciousness: patient oriented x3 Resp: Effort & Inspection: normal respiratory effort Back/Spine/Pelvis: Other: Dressings changed to I&D site on left buttock. Extensive amount of discharge noted around the dressing extending onto her pillow and sheets. Patient cleaned and clean dressing applied. Erythema continues to improve Neuro: General: patient oriented x3 Objective Data Active Medications Amlodipine Besylate (Amlodipine Besylate 2.5 Mg Tablet) 7.5 mg PO DAILY [facility]; Protocol Last Admin: 02/25/24 07:59 Dose: 7.5 mg Documented By: JAYCEE Enoxaparin Sodium (Enoxaparin Sodium 40 Mg/0.4 Ml Syringe) 40 mg SUBCUT Q24H [facility] Last Admin: 02/25/24 07:58 Dose: 40 mg Documented By: JAYCEE Dextrose (D10) 250 mls @ 750 mls/hr IV Q30M PRN PRN Reason: BG <70 Vancomycin HCl 1,000 mg/Vancomycin HCl 750 mg/ Sodium Chloride 535 mls @ 267.5 mls/hr IV Q12H [facility] Last Infusion: 02/25/24 06:47 Dose: Infused Documented By: BECK Insulin Glargine (Insulin Glargine,Hum.Rec.Anlog 100 Unit/Ml 10 Ml Vial) 15 unit SUBCUT DAILY [facility] Last Admin: 02/25/24 07:59 Dose: 15 unit Documented By: JAYCEE Insulin Human Lispro (Insulin Lispro 100 Unit/Ml 3 Ml Vial) 0 unit SUBCUT QIDACHS [facility]; Protocol Last Admin: 02/25/24 07:59 Dose: 4 unit Documented By: JAYCEE Insulin Human Lispro (Insulin Lispro 100 Unit/Ml 3 Ml Vial) 5 unit SUBCUT QIDACHS [facility] Last Admin: 02/25/24 07:59 Dose: 5 unit Documented By: JAYCEE Lisinopril (Lisinopril 5 Mg Tablet) 5 mg PO DAILY [facility]; Protocol Last Admin: 02/25/24 07:59 Dose: 5 mg Documented By: JAYCEE Lorazepam (Lorazepam 1 Mg Tablet) 1 mg PO Q6H PRN PRN Reason: Anxiety Last Admin: 02/24/24 09:06 Dose: 1 mg Documented By: YARAFEFLORY Methadone HCl (Methadone Hcl 20 Mg/2 Ml Oral.Conc) 10 mg PO DAILY PRN PRN Reason: Opiate Withdrawal Methadone HCl (Methadone Hcl 20 Mg/2 Ml Oral.Conc) 75 mg PO DAILY [facility] Last Admin: 02/25/24 07:59 Dose: 75 mg Documented By: JAYCEE Morphine Sulfate (Morphine Sulfate 2 Mg/Ml Cartridge) 2 mg IVPUSH Q4H PRN; Protocol PRN Reason: Pain, Severe (Pain Scale 7-10) Last Admin: 02/25/24 03:04 Dose: 2 mg Documented By: BECK Ondansetron HCl (Ondansetron Hcl 4 Mg/2 Ml Vial) 4 mg IVPUSH Q8H PRN PRN Reason: Nausea and Vomiting Last Admin: 02/24/24 20:44 Dose: 4 mg Documented By: BECK Pharmacy Consult (Consult Rx Vancomycin Dosing) 1 each MISCELLANE DAILY PRN PRN Reason: Consult order Potassium Chloride (Potassium Chloride Er 20 Meq Tab.Er.Prt) 20 meq PO DAILY [facility] Last Admin: 02/25/24 07:58 Dose: 20 meq Documented By: JAYCEE Labs 02/23/24 08:34 02/24/24 08:29 Labs: Laboratory Results - last 24 hr 02/24/24 02/24/24 02/24/24 11:30 16:27 19:58 Hold Purple Top POC Glucose 298 H 260 H 267 H Random Vancomycin 02/24/24 02/25/24 02/25/24 22:10 07:00 09:37 Hold Purple Top SEE NOTE POC Glucose 243 H Random Vancomycin 13.9 L Microbiology Microbiology Results: Microbiology 02/22/24 09:11 Blood Culture - Preliminary Blood - Venous No growth after 48 hours. 02/20/24 23:07 Blood Culture - Final Blood - Venous Staphylococcus aureus Procedures Date of Service Date of Service: 02/25/24 Progress Note: A&P Assessment and plan (1) Abscess of buttock, left: Status: Acute Plan POD #2 following incision and drainage of a large perirectal abscess. The wounds are open and draining appropriately. surrounding skin appears much improved with decreased erythema. She continues to have copious amounts of pus draining from wound. Continue local wound care. Time Spent With Patient Time: Total time managing care of this patient today ____ minutes. Quality Stroke Does the patient have a stroke diagnosis?: No VTE Prior VTE?: No VTE Risk Level:: Medical - low VTE Device Contraindication: Treatment Not Indicated VTE Drug Contraindication: N/A - Med Ordered
[2024-02-25 10:48] LABS: Anion Gap 15 (12-20); Blood Urea Nitrogen 3 mg/dL (9-16); Calcium 8.3 mg/dL (8.4-10.2); Carbon Dioxide 33 mmol/L (22-29); Chloride 91 mmol/L (96-108); Creatinine Clr Calc Pharmacy 158.1; Estimated Glomerular Filt Rate > 60; Glucose Random 303 mg/dL (60-115); Potassium 2.8 mmol/L (3.3-5.1); Sodium 136 mmol/L (135-145)
[2024-02-25 10:56] LABS: Glucose, Whole Blood 301 mg/dL (60-115)
[2024-02-25] MEDS: Potassium Chloride/H20 10 MEQ/100 ML PIGGYBACK 100 MEQ IV ×2 (11:54→13:17)
[2024-02-25] MEDS: Potassium Chloride ER 20 MEQ TAB.ER.PRT 40 MEQ PO (11:55)
--- NOTE | 2024-02-25 13:20 | P.CDIM_ITS ---
PROVIDER RESPONSE TEXT: To clarify, the appropriate diagnosis supported by the clinical indicators: Hypokalemia QUERY TEXT: PHYSICIAN'S DOCUMENTATION REQUEST Date of Query: 02/25/2024 09:48 AM EDT Patient Name: Misty Schmitt Admit Date: 02/21/2024 Dear Tameka Pizano, A review of the medical record indicates additional documentation may be needed. Please review below and update the documentation accordingly. Clinical Indicators: LABS: potassium 2.7 3.0 Klor-Con Based on the above, is there a diagnosis that correlates with these lab findings: Hypokalemia Labs indicate a diagnosis of (please specify) Other (explain) Clinically unable to determine (explain) Thank you, Mary Napoles, CCS, CDIS Use of terms such as suspected, likely, concern for, or probable (associated with a specific diagnosi s that is being evaluated, monitored, or treated as if it exists) are acceptable and can be coded in the inpatient se tting, when documented at the time of discharge. Please use your independent medical judgment in providing your response. THIS QUERY IS PART OF THE PERMANENT MEDICAL RECORD
--- NOTE | 2024-02-25 14:00 | MHC.CM.PN ---
EMR reviewed and per MD rounds, pt is not medically cleared for discharge due to management of bacteremia, and gluteal abscess requiring IV antibiotics. This CM met with pt to discuss her discharge plan and she is aware and in agreement with needing 4 weeks IV antibiotics in a SNF. Referral made to [facility] and they are following, per [facility] she will need guest dosing at [facility] in [place]. This CM placed a call to [facility] in [place] to begin setting up guest dosing.
--- NOTE | 2024-02-25 15:46 | HO.ADDICTPRO ---
Subjective Subjective Date of Service: 02/25/24 Reason For Visit: DKA Interim History: Patient seen in follow up in room 462. skull chopper present during interview Awake, alert engaged in interview Methadone at 75mg today Denies any withdrawal sx. Reporting that pain is currently appropriately managed with PRNs Tearful during interview. Reporting that in June she had been admitted to [facility] for taryn treatment and completed program. Remained free of substance use for almost 2 months then slowly started to use in response to stresors at home. Eventually she was back to using daily and reports that prior to admission she was using 10-12 bags daily. Engaged in treatment for OUD via [facility] and methadone dose is 100mg daily. She acknowledges missing dosing for many days mainly due to not feeling well and issues with transportation. She lives with her 21 year old daughter. 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 Limited supports--but is connected to her counselor at [facility] Review of Systems Constitutional: Reports as per HPI Mental Status Exam Mental Status Exam Patient Appearance: Appropriate Level of Consciousness: Awake, Appropriate and Alert Patient Behavior: Appropriate and Talkative Mood Description: Sad Affect Description: Sad Speech Pattern: Clear Diagnostics Vital Signs (24Hr): Vital Signs - 24 hr 02/24/24 20:00 02/24/24 20:41 02/25/24 00:00 Temperature 97.7 F 98.3 F Pulse Rate 100 90 Respiratory Rate 20 15 20 Blood Pressure 128/67 153/81 H Pulse Oximetry 91 L 93 Oxygen Delivery Method Room Air Room Air 02/25/24 04:00 02/25/24 07:44 02/25/24 11:15 Temperature 97.0 F 98.0 F 97.4 F Pulse Rate 85 88 81 Respiratory Rate 20 18 20 Blood Pressure 172/84 H 128/64 Pulse Oximetry 92 92 92 Oxygen Delivery Method Room Air Room Air Room Air BMI result Body Mass Index 40.9 Labs 02/23/24 08:34 02/25/24 09:22 Labs: Laboratory Results - last 48 hr 02/23/24 02/23/24 02/23/24 14:51 16:05 17:09 Hold Purple Top Sodium 132 L Potassium 2.7 L* D Chloride 92 L Carbon Dioxide 28 Anion Gap 15 BUN 3 L Creatinine 0.59 Estim Creat Clear Calc 180.0 Estimated GFR > 60 POC Glucose 296 H Random Glucose 330 H Calcium 8.5 Random Vancomycin 22.9 H Hepatitis C Ab (EIA) HIV 1&2 Ab/P24 Ag 4thGn 02/23/24 02/24/24 02/24/24 20:13 03:26 07:31 Hold Purple Top Sodium Potassium Chloride Carbon Dioxide Anion Gap BUN Creatinine Estim Creat Clear Calc Estimated GFR POC Glucose 302 H 273 H 287 H Random Glucose Calcium Random Vancomycin Hepatitis C Ab (EIA) HIV 1&2 Ab/P24 Ag 4thGn 02/24/24 02/24/24 02/24/24 08:29 11:30 16:27 Hold Purple Top Sodium 132 L Potassium 3.0 L Chloride 91 L Carbon Dioxide 29 Anion Gap 15 BUN 3 L Creatinine 0.65 Estim Creat Clear Calc 162.9 Estimated GFR > 60 POC Glucose 298 H 260 H Random Glucose 332 H Calcium 8.1 L Random Vancomycin Hepatitis C Ab (EIA) HIV 1&2 Ab/P24 Ag 4thGn 02/24/24 02/24/24 02/25/24 19:58 22:10 07:00 Hold Purple Top Sodium Potassium Chloride Carbon Dioxide Anion Gap BUN Creatinine Estim Creat Clear Calc Estimated GFR POC Glucose 267 H 243 H Random Glucose Calcium Random Vancomycin 13.9 L Hepatitis C Ab (EIA) HIV 1&2 Ab/P24 Ag 4thGn 02/25/24 02/25/24 02/25/24 09:22 09:37 09:38 Hold Purple Top SEE NOTE Sodium 136 Cancelled Potassium 2.8 L* Cancelled Chloride 91 L Cancelled Carbon Dioxide 33 H Cancelled Anion Gap 15 Cancelled BUN 3 L Cancelled Creatinine 0.67 Cancelled Estim Creat Clear Calc 158.1 Cancelled Estimated GFR > 60 Cancelled POC Glucose Random Glucose 303 H Cancelled Calcium 8.3 L Cancelled Random Vancomycin Hepatitis C Ab (EIA) Nonreactive HIV 1&2 Ab/P24 Ag 4thGn Nonreactive 02/25/24 10:43 Hold Purple Top Sodium Potassium Chloride Carbon Dioxide Anion Gap BUN Creatinine Estim Creat Clear Calc Estimated GFR POC Glucose 301 H Random Glucose Calcium Random Vancomycin Hepatitis C Ab (EIA) HIV 1&2 Ab/P24 Ag 4thGn Imaging Radiology Impressions: ITS Impressions Chest X-Ray 02/21/24 00:46 IMPRESSION: Right central line extends to the level of the mid SVC. No pneumothorax. Low lung volumes and minimal bibasilar atelectasis in the setting of low lung volumes. Abdomen/Pelvis CT 02/22/24 09:45 IMPRESSION: * Patchy fluid attenuation from abscess in subcutaneous tissues of the inferomedial left gluteal area is partially included in the [id number], and the edema in tissues is consistent with cellulitis. No soft tissue gas. * Chronic obesity and hepatomegaly. * Gallbladder chronically has a hydropic appearance, similar compared to 11/05/2022. * The mild left lower external iliac and inguinal lymphadenopathy is likely reactive to the infectious/inflammatory disease process. * Adenoma the left adrenal gland. * Diverticula of the descending and sigmoid colon without diverticulitis. Medications Medications Current Medications Amlodipine Besylate (Amlodipine Besylate 2.5 Mg Tablet) 7.5 mg PO DAILY [facility]; Protocol Last Admin: 02/25/24 07:59 Dose: 7.5 mg Enoxaparin Sodium (Enoxaparin Sodium 40 Mg/0.4 Ml Syringe) 40 mg SUBCUT Q24H [facility] Last Admin: 02/25/24 07:58 Dose: 40 mg Dextrose (D10) 250 mls @ 750 mls/hr IV Q30M PRN PRN Reason: BG <70 Vancomycin HCl 1,000 mg/Vancomycin HCl 750 mg/ Sodium Chloride 535 mls @ 267.5 mls/hr IV Q12H [facility] Last Admin: 02/25/24 14:28 Dose: 267.5 mls/hr Insulin Glargine (Insulin Glargine,Hum.Rec.Anlog 100 Unit/Ml 10 Ml Vial) 15 unit SUBCUT DAILY [facility] Last Admin: 02/25/24 07:59 Dose: 15 unit Insulin Human Lispro (Insulin Lispro 100 Unit/Ml 3 Ml Vial) 0 unit SUBCUT QIDACHS [facility]; Protocol Last Admin: 02/25/24 11:45 Dose: 8 unit Insulin Human Lispro (Insulin Lispro 100 Unit/Ml 3 Ml Vial) 5 unit SUBCUT QIDACHS [facility] Last Admin: 02/25/24 11:44 Dose: 5 unit Lisinopril (Lisinopril 5 Mg Tablet) 5 mg PO DAILY [facility]; Protocol Last Admin: 02/25/24 07:59 Dose: 5 mg Lorazepam (Lorazepam 1 Mg Tablet) 1 mg PO Q6H PRN PRN Reason: Anxiety Last Admin: 02/24/24 09:06 Dose: 1 mg Methadone HCl (Methadone Hcl 20 Mg/2 Ml Oral.Conc) 10 mg PO DAILY PRN PRN Reason: Opiate Withdrawal Methadone HCl (Methadone Hcl 20 Mg/2 Ml Oral.Conc) 75 mg PO DAILY [facility] Last Admin: 02/25/24 07:59 Dose: 75 mg Morphine Sulfate (Morphine Sulfate 2 Mg/Ml Cartridge) 2 mg IVPUSH Q4H PRN; Protocol PRN Reason: Pain, Severe (Pain Scale 7-10) Last Admin: 02/25/24 13:26 Dose: 2 mg Ondansetron HCl (Ondansetron Hcl 4 Mg/2 Ml Vial) 4 mg IVPUSH Q8H PRN PRN Reason: Nausea and Vomiting Last Admin: 02/24/24 20:44 Dose: 4 mg Pharmacy Consult (Consult Rx Vancomycin Dosing) 1 each MISCELLANE DAILY PRN PRN Reason: Consult order Potassium Chloride (Potassium Chloride Er 20 Meq Tab.Er.Prt) 20 meq PO DAILY [facility] Last Admin: 02/25/24 07:58 Dose: 20 meq Allergies Allergies Allergy/AdvReac Type Severity Reaction Status Date / Time No Known Allergies Allergy Verified 02/20/24 21:08 Assessment & Plan Assessment & Plan (1) Opioid use disorder: Status: Acute Code(s): F11.90 - Opioid use, unspecified, uncomplicated Assessment and Plan: would like to continue titrating methadone dose to 100mg --feels it is helpful with recovery increase to 85mg Weds continue to follow Total time managing care of this patient today _35___ minutes.
[2024-02-25 16:10] LABS: Glucose, Whole Blood 218 mg/dL (60-115)
[2024-02-25 20:23] LABS: Glucose, Whole Blood 265 mg/dL (60-115)
[2024-02-25 22:19] LABS: Vancomycin Random 13.5 mcg/mL (15-20)
--- NOTE | 2024-02-25 22:26 | HE.PHANOTE ---
Re: Vanco Stable renal function. Trough returned at 13.5, pt is therapeutic. Continue current dose of 1750 mg q12h, with predicted AUC 476 mg/hr, and predicted trough of 10.6 mg/L.
[2024-02-26] VITALS: PULSE 81
[2024-02-26] MEDS: Morphine Sulfate 2 MG/ML CARTRIDGE IVPUSH ×3 (00:07→13:14)
[2024-02-26] MEDS: vancomycin HCL 1,000 MG, vancomycin HCL 750 MG in 0.9 % Sodium Chloride 500 ML 267.5 MG IV ×2 (00:08→13:07)
[2024-02-26 03:34] VITALS: BP 140/72; PULSE 72; RESP 20; TEMP 36.3; O2SAT 95
[2024-02-26 04:00] VITALS: PULSE 88
[2024-02-26 06:00] VITALS: BMI 40.9
[2024-02-26 07:35] VITALS: BP 147/85; PULSE 82; RESP 18; TEMP 36; O2SAT 95
[2024-02-26 07:58] LABS: Glucose, Whole Blood 281 mg/dL (60-115)
[2024-02-26 08:00] VITALS: PULSE 88
[2024-02-26] MEDS: amLODIPine Besylate 2.5 MG TABLET 7.5 MG PO (08:10)
[2024-02-26] MEDS: Potassium Chloride ER 20 MEQ TAB.ER.PRT PO (08:10)
[2024-02-26] MEDS: Enoxaparin Sodium 40 MG/0.4 ML SYRINGE SUBCUT (08:10)
[2024-02-26] MEDS: lisinopriL 5 MG TABLET PO (08:10)
[2024-02-26] MEDS: Insulin Lispro 100 UNIT/ML 3 ML VIAL SUBCUT ×4 (08:11→13:07)
[2024-02-26] MEDS: methADONE HCl 20 MG/2 ML ORAL.CONC 75 MG PO (08:12)
[2024-02-26] MEDS: Insulin Glargine,Hum.rec.anlog 100 UNIT/ML 10 ML VIAL 15 UNIT SUBCUT (08:20)
[2024-02-26 08:25] LABS: Anion Gap 11 (12-20); Blood Urea Nitrogen 3 mg/dL (9-16); Calcium 8.3 mg/dL (8.4-10.2); Carbon Dioxide 30 mmol/L (22-29); Chloride 98 mmol/L (96-108); Creatinine Clr Calc Pharmacy 168.1; Estimated Glomerular Filt Rate > 60; Glucose Random 270 mg/dL (60-115); Potassium 3.5 mmol/L (3.3-5.1); Sodium 135 mmol/L (135-145)
--- NOTE | 2024-02-26 08:31 | MHC.CM.PN ---
Addendum entered by Zelda Sheldon 02/26/24 14:49: Patient is discharged today. Guest dosing is set up. [facility] is waiting for insurance authorization. 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 The PICC line has been inserted. The documentation has been sent to the facility. DC info has been sent to the SNF. Original Note: Called [facility], with [facility]. Spoke with Jessica Donaldson the patients boiler operator at [facility]. She stated that she will start the process with [facility]. [facility] has been notified via [facility]. Request made for anticipated admission date.
--- NOTE | 2024-02-26 09:21 | HO.PM.IMPN ---
Subjective Subjective Date of Service: 02/26/24 Interval History: Seen and examined this morning Follow-up for DKA, cellulitis pain to buttock wound ambulating in room Review of Systems Review of Systems: Yes all other systems are reviewed and are negative Constitutional Constitutional: Denies chills and Denies fever(s) Physical Exam Vital Signs: Vital Signs: Last Vital Signs Temp 96.8 F 02/26/24 07:35 Pulse 82 02/26/24 07:35 Resp 18 02/26/24 07:35 BP 147/85 H 02/26/24 07:35 Pulse Ox 95 02/26/24 07:35 O2 Del Method Room Air 02/26/24 07:35 BMI result Body Mass Index 40.9 Appearing in no acute distress lung sounds are clear to auscultation heart regular rate rhythm, clear S1, S2 positive bowel sounds, abdomen is soft, nontender neuro patient is alert x3, no focal deficits Perirectal abscess draining. erythema resolved Objective Data Active Medications Amlodipine Besylate (Amlodipine Besylate 2.5 Mg Tablet) 7.5 mg PO DAILY [facility]; Protocol Last Admin: 02/26/24 08:10 Dose: 7.5 mg Documented By: MARI Enoxaparin Sodium (Enoxaparin Sodium 40 Mg/0.4 Ml Syringe) 40 mg SUBCUT Q24H [facility] Last Admin: 02/26/24 08:10 Dose: 40 mg Documented By: MARI Dextrose (D10) 250 mls @ 750 mls/hr IV Q30M PRN PRN Reason: BG <70 Vancomycin HCl 1,000 mg/Vancomycin HCl 750 mg/ Sodium Chloride 535 mls @ 267.5 mls/hr IV Q12H [facility] Last Infusion: 02/26/24 03:51 Dose: Infused Documented By: TAWNYA Insulin Glargine (Insulin Glargine,Hum.Rec.Anlog 100 Unit/Ml 10 Ml Vial) 15 unit SUBCUT DAILY [facility] Last Admin: 02/26/24 08:20 Dose: 15 unit Documented By: MARI Insulin Human Lispro (Insulin Lispro 100 Unit/Ml 3 Ml Vial) 0 unit SUBCUT QIDACHS [facility]; Protocol Last Admin: 02/26/24 08:11 Dose: 6 unit Documented By: MARI Insulin Human Lispro (Insulin Lispro 100 Unit/Ml 3 Ml Vial) 5 unit SUBCUT QIDACHS [facility] Last Admin: 02/26/24 08:12 Dose: 5 unit Documented By: MARI Lisinopril (Lisinopril 5 Mg Tablet) 5 mg PO DAILY [facility]; Protocol Last Admin: 02/26/24 08:10 Dose: 5 mg Documented By: MARI Lorazepam (Lorazepam 1 Mg Tablet) 1 mg PO Q6H PRN PRN Reason: Anxiety Last Admin: 02/24/24 09:06 Dose: 1 mg Documented By: DALILA Methadone HCl (Methadone Hcl 20 Mg/2 Ml Oral.Conc) 10 mg PO DAILY PRN PRN Reason: Opiate Withdrawal Methadone HCl (Methadone Hcl 20 Mg/2 Ml Oral.Conc) 75 mg PO DAILY [facility] Last Admin: 02/26/24 08:12 Dose: 75 mg Documented By: MARI Morphine Sulfate (Morphine Sulfate 2 Mg/Ml Cartridge) 2 mg IVPUSH Q4H PRN; Protocol PRN Reason: Pain, Severe (Pain Scale 7-10) Last Admin: 02/26/24 06:04 Dose: 2 mg Documented By: TAWNYA Ondansetron HCl (Ondansetron Hcl 4 Mg/2 Ml Vial) 4 mg IVPUSH Q8H PRN PRN Reason: Nausea and Vomiting Last Admin: 02/24/24 20:44 Dose: 4 mg Documented By: BECK Pharmacy Consult (Consult Rx Vancomycin Dosing) 1 each MISCELLANE DAILY PRN PRN Reason: Consult order Potassium Chloride (Potassium Chloride Er 20 Meq Tab.Er.Prt) 20 meq PO DAILY [facility] Last Admin: 02/26/24 08:10 Dose: 20 meq Documented By: MARI Labs 02/23/24 08:34 02/26/24 07:34 Labs: Laboratory Results - last 24 hr 02/25/24 02/25/24 02/25/24 09:22 09:37 09:38 Hold Purple Top SEE NOTE Anion Gap 15 Cancelled Estim Creat Clear Calc 158.1 Cancelled Estimated GFR > 60 Cancelled POC Glucose Random Glucose 303 H Cancelled Calcium 8.3 L Cancelled Random Vancomycin Hepatitis C Ab (EIA) Nonreactive HIV 1&2 Ab/P24 Ag 4thGn Nonreactive 06/24/24 06/24/24 06/24/24 10:43 16:01 20:15 Hold Purple Top Anion Gap Estim Creat Clear Calc Estimated GFR POC Glucose 301 H 218 H 265 H Random Glucose Calcium Random Vancomycin Hepatitis C Ab (EIA) HIV 1&2 Ab/P24 Ag 4thGn 02/25/24 02/26/24 02/26/24 21:40 07:34 07:40 Hold Purple Top Anion Gap 11 L Estim Creat Clear Calc 168.1 Estimated GFR > 60 POC Glucose 281 H Random Glucose 270 H Calcium 8.3 L Random Vancomycin 13.5 L Hepatitis C Ab (EIA) HIV 1&2 Ab/P24 Ag 4thGn Assessment and Plan (1) Bacteremia: Status: Acute (2) Cellulitis: Status: Acute (3) Acute hyperglycemia: Status: Acute (4) Abscess of buttock, left: Status: Acute Plan This is a 38-year-old female with history of cyclical vomiting syndrome, uncontrolled diabetes, hypertension admitted to the ICU due to DKA Buttock cellulitis Due to uncontrolled diabetes and size/location of cellulitis, pelvis CT showing gluteal abscess continue vancomycin and zosyn surgical consult>s/p I&D 02/23/24 continues to drain freely, erythema much improved staph bacteremia 2/2 cultures growing staph aureus Continue IV vancomycin likely skin source echo EF 70%, no notation of vegetation ID consult>check HIV and hep c (both negative) midline ordered>will need 4 weeks IV abx (end date 03/20/24) Left arm wound Appears chronic, does not appear to be infected Wound care nurse following> see note for wound care Type 2 diabetes with hyperglycemia due to medication noncompliance DKA resolved Does not have PCP, has been unable to get diabetic medication Was started on Lantus in ICU, increased to 20 units continue ss and mealtime insulin Opiate use disorder On methadone at baseline, dose confirmed 100 mg daily. Has not received since February 11 resumed and titrating as per addiction med team Pseudo hyponatremia. Resolved Due to hyperglycemia low phos, low k Khos x1 today oral potassium daily Hypertension Continue lisinopril, Norvasc Chronic microcytic anemia Above transfusion threshold Follow up CBC Morbid obesity BMI 40.9 Discussed importance of weight management as this may be contributing to worsening of other comorbidities DVT prophylaxis-Lovenox Attending Dr. Richardson full code DISPO will need 4 weeks IV abx at facility like [facility] d/t substance abuse hx Patient requires ongoing inpatient stay for management of bacteremia, gluteal abscess, need for IV antibiotics and surgical evaluation Quality Stroke Does the patient have a stroke diagnosis?: No VTE Prior VTE?: No VTE Risk Level:: Medical - low VTE Device Contraindication: Treatment Not Indicated VTE Drug Contraindication: N/A - Med Ordered
[2024-02-26] MEDS: Potassium Phosphate/NS 15 MMOL/250 ML PLAST..BAG 62.5 MMOL IV (10:39)
--- NOTE | 2024-02-26 11:09 | PM.DS ---
DS: Providers Provider Date of Service: 02/26/24 Date of admission: 02/21/24 01:02 Primary care physician: Unknown Physician Consults: 02/21/24 16:42 Consult to Infectious Diseases Routine Consulting Provider: [facility] Reason for consultation: GPC bacteremia Has provider been notified: No 02/22/24 08:16 Addiction Medicine Routine Consulting Provider: Addiction Covering Reason for consultation: unable to verify methadone dose with clinic. pt have withdrawal symptoms Has provider been notified: Yes 02/22/24 11:47 Consult to Wound Care Routine Reason for consultation: left arm wound 02/22/24 11:49 Consult to General Surgery Routine Consulting Provider: [facility] Reason for consultation: uncontrolled diabetes; large buttock abscess Has provider been notified: No DS: Diagnosis Discharge Diagnosis (1) Bacteremia: Status: Acute (2) Cellulitis: Status: Acute (3) Acute hyperglycemia: Status: Acute (4) Abscess of buttock, left: Status: Acute DS: Summary Hospital Course Hospital Course: History and physical as per admitting provider. The patient is a 38-year-old female with a past medical history of diabetes mellitus, hypertension? and polysubstance abuse? on methadone but relapsed? today and used heroin,? presented to the emergency department with complaints of high sugar.? Patient reports noncompliance with? blood pressure and diabetes medications due to not having a follow-up appointment any primary care provider.?In the emergency department patient hypertensive to 189/98 and tachycardic.? Afebrile and satting 98% on room air. Laboratory data was significant for WBC 23.9, platelets 603,? serum bicarb 18, anion gap 23, glucose 377, albumin 3.1,? beta hydroxybutyrate 3.96 Venous blood gas:? 7.40/34/62/22. ED course:?Patient received 2 L bolus, ceftriaxone 2 g, 5 units IV push right leg insulin, labetalol 5 mg,? potassium chloride 40 mEq and started on insulin drip Patient will be admitted to ICU? for the hemodynamically monitoring of DKA? 38-year-old woman and she was treated for DKA in the ICU. She had relapsed on heroin and presented to the ER with elevated blood sugar. She is noncompliant with her blood pressure medications as well as diabetic medications and has not had any follow up with primary care provider. She had cellulitis of the buttock area and due to the uncontrolled diabetes she was noted to have a gluteal abscess on pelvic CT. She was seen evaluated by General surgery and underwent an I and D on 02/23/2024. The perirectal abscess site continues to drain freely. Erythema has improved significantly. She has been treated with vancomycin and Zosyn. Wound Care is warm soaks prior to dressing changes, dry sterile dressing 3 times a day, allow wound to drain freely. Follow-up with the general surgeon in his office in 1 week for wound assessment. Patient was also treated for staph bacteremia, MSSA. Continue IV vancomycin, patient had a PICC line placed 02/26/2024. Last dose will be 03/20/2024 and RN may remove PICC line after last dose. She had an echocardiogram with an EF of 70% and no notation of vegetation, HIV and hepatitis-C negative. Left arm wound. Appears to be chronic and not infected. Ulceration secondary to IVDU injection site 3 cm x 2 cm x 0.2 cm wound bed dried, scabbed, scattered moist areas, no drainage or odor. See wound care recommendations below Diabetes mellitus type 2 with. Continue Lantus 20 units at bedtime, insulin sliding scale. CHECK BS ACHS AND AT BEDTIME Opiate use disorder. On methadone initial dose of 100 daily however patient had not received that dose since February 11 and was started on a lower dose and titrated up. She is currently on 75 mg daily Pseudohyponatremia was secondary to hypoglycemia Hypophosphatemia/hypo kalemia. Treated with IV K-Phos, IV potassium and oral potassium. Continue oral potassium for 7 days, check BMP in 3 days Hypertension. Continue lisinopril and Norvasc Chronic microcytic anemia. H&H remained above transfusion threshold during hospitalization Morbid obesity. BMI 40.9. Discussed importance of weight management as this may be contributing to worsening of other comorbidities Wound care Recommendations: 1. Turn and Reposition every 2 hours and as needed for patient comfort.? Use pillows or wedges to support off loading positions. 2. Off Load all bony prominences with use of pillows and heel boots if needed.? Apply Preventative foams where needed. ? 3. Provide adequate and supplemental nutrition - Nutrition following.? 4. Maintain blood glucose levels per Providers order. 5. Left Upper Arm - Cleanse with cleanser such as NS or wound cleanser, Pat dry. Apply skin prep to periwound, cover wound bed with xeroform cover with Foam dressing change every other day. Continue to seek topical care and treatment with [facility]. Less than 30 day stay Time Attestation Discharge Coordination Time (in mins): 35 Quality: Safe Use of Opioids Does Pt have an Active Cancer Diagnosis on the Problem List?: No Quality: Stroke Does the patient have a stroke diagnosis?: No Physical Exam Vital Signs: Vital Signs: Last Vital Signs Temp 96.8 F 02/26/24 07:35 Pulse 82 02/26/24 07:35 Resp 18 02/26/24 07:35 BP 147/85 H 02/26/24 07:35 Pulse Ox 95 02/26/24 07:35 O2 Del Method Room Air 02/26/24 07:35 BMI result Body Mass Index 40.9 DS: Data Data Completed and Pending Labs on day of discharge: Laboratory Results - last 24 hr 02/25/24 02/25/24 02/25/24 09:38 16:01 20:15 Sodium Cancelled Potassium Cancelled Chloride Cancelled Carbon Dioxide Cancelled Anion Gap Cancelled BUN Cancelled Creatinine Cancelled Estim Creat Clear Calc Cancelled Estimated GFR Cancelled POC Glucose 218 H 265 H Random Glucose Cancelled Calcium Cancelled Random Vancomycin 02/25/24 02/26/24 02/26/24 21:40 07:34 07:40 Sodium 135 Potassium 3.5 D Chloride 98 Carbon Dioxide 30 H Anion Gap 11 L BUN 3 L Creatinine 0.63 Estim Creat Clear Calc 168.1 Estimated GFR > 60 POC Glucose 281 H Random Glucose 270 H Calcium 8.3 L Random Vancomycin 13.5 L Preliminary micro results at discharge 02/22/24 09:11 Blood Culture - Preliminary Blood - Venous No growth after 48 hours. Discharge Plan Discharge Anticipated Discharge Date/Time: 02/26/24 11:01 Patient Disposition: Xfer Inpatient Rehab Fac Discharge Diagnosis: Perirectal abscess MSSA bacteremia Referrals: [facility] [Outside] - 1 Week Yaneth Connell PA-C [Physician Senior Automation Engineer] - 1 Week (perirectal abscess) Discharge Medications: New potassium chloride 20 mEq Tablet,Er Particles/Crystals 20 meq PO DAILY Qty: 7 0RF vancomycin in 0.9 % sodium chl 1 gram/250 mL solution 1 g IV Q12H insulin glargine [Lantus U-100 Insulin] 100 unit/mL Solution 20 unit subcut DAILY Qty: 10 0RF Continued (DME) FreeStyle Lite Strips Strip Qty: 100 0RF Rx Instructions: Test four times a day or as directed. (DME) FreeStyle Lite Strips Strip Qty: 100 0RF Rx Instructions: Test four times a day or as directed. (DME) blood-glucose meter [FreeStyle Lite Meter] Kit Qty: 1 0RF Rx Instructions: As Directed insulin lispro [Humalog KwikPen Insulin] 100 unit/mL insulin pen See Rx Instructions .ROUTE .COMPLEX MDD 30 Qty: 15 0RF Rx Instructions: Blood Sugar: <150 - 0 units 151-200 - 2 units 201-250 - 4 units 251-300 - 6 units 301-350 - 8 units >350 - 10 units (DME) pen needle, diabetic 32 gauge x 1/4 needle Qty: 100 0RF Rx Instructions: Use four times a day or as directed. (DME) lancets [FreeStyle Lancets] 28 gauge misc Qty: 100 0RF Rx Instructions: Test four times a day or as directed. amlodipine 5 mg tablet 7.5 mg PO DAILY 60 Days Qty: 90 0RF lisinopril 5 mg tablet 5 mg PO DAILY 60 Days Qty: 60 0RF Changed methadone 10 mg/mL Concentrate 75 mg PO DAILY Qty: 30 0RF Rx Instructions: [facility] Discharge Orders: Discharge Order (Routine); Ordered 02/26/24 Ordered By: Tameka Pizano Diet: Advance to usual diet Activity on Discharge: As tolerated Stand Alone Forms: Patient Portal Discharge page Print Language: Syriac Other Ambulatory Orders: Basic Metabolic Panel (Routine) Timeframe: 3 Days Facility: [facility] - Location: Laboratory Ordered By: Tameka Pizano Care Plan Goals: Follow-up with general surgeon for checkup of perirectal abscess wound Continue IV vancomycin 1000 mg every 12 hours. End date 03/20/2024. RN may remove PICC line after last dose. Wound care Recommendations: 1. Turn and Reposition every 2 hours and as needed for patient comfort.? Use pillows or wedges to support off loading positions. 2. Off Load all bony prominences with use of pillows and heel boots if needed.? Apply Preventative foams where needed. ? 3. Provide adequate and supplemental nutrition - Nutrition following.? 4. Maintain blood glucose levels per Providers order. 5. Left Upper Arm - Cleanse with cleanser such as NS or wound cleanser, Pat dry. Apply skin prep to periwound, cover wound bed with xeroform cover with Foam dressing change every other day. Continue to seek topical care and treatment with [facility]. 6. For perirectal abscess, warm soap prior to dressing change, dry sterile dressing 3 times a day, allow to drain freely Health Concerns: Perirectal abscess MSSA bacteremia Plan of Treatment: Follow-up with primary care provider as needed Take all medications as prescribed CHECK BLOOD SUGAR AC/HS AND AT BEDTIME Assessment: See discharge summary Discharge Date/Time: 02/26/24 16:50
--- NOTE | 2024-02-26 11:25 | P.CDIM_ITS ---
PROVIDER RESPONSE TEXT: To clarify, the appropriate diagnosis supported by the clinical indicators: I & D left buttock: abscess drainage QUERY TEXT: PHYSICIAN'S DOCUMENTATION REQUEST Date of Query: 02/26/2024 07:41 AM EDT Patient Name: Misty Schmitt Admit Date: 02/21/2024 Dear Tameka Pizano, A review of the medical record indicates additional documentation may be needed. Please review below and update the documentation accordingly. Clinical Indicators: Op note dated 02/23/24 - I&D left buttock abscess Procedure was performed at bedside. An eleven blade was used to incise the large abscess. A large col lection was drained. Wound were irrigated and saline solution. Abscess cavity was then packed with quarter-inch Nu Gauze. Could you provide, in the Progress Notes, further clarification regarding the depth of the I&D perfor med: I & D left buttock skin, subcutaneous tissue and fascia, etc. Other (explain) Clinically unable to determine (explain) Thank you, Mary Napoles, CCS, CDIS Use of terms such as suspected, likely, concern for, or probable (associated with a specific diagnosi s that is being evaluated, monitored, or treated as if it exists) are acceptable and can be coded in the inpatient se tting, when documented at the time of discharge. Please use your independent medical judgment in providing your response. THIS QUERY IS PART OF THE PERMANENT MEDICAL RECORD
[2024-02-26 11:37] VITALS: BP 130/75; PULSE 83; RESP 18; TEMP 36.3; O2SAT 97
[2024-02-26 11:52] LABS: Glucose, Whole Blood 230 mg/dL (60-115)
--- NOTE | 2024-02-26 12:52 | HO.PICC ---
PICC Line Insertion NPICC Diagnosis: Cellulitis Indication: 4 wks ABT Pertinent Labs: Reviewed Technique: Following informed consent including risks, benefits and alternatives and using sterile technique including cap and mask, sterile gown, glove and drape, the right arm was prepped and draped in the usual sterile fashion of full barrier technique with CHG. Following completion of Cartwright Protocol the skin and soft tissues were anesthetized with 1% Lidocaine plain. Using ultrasound guidance, right basilic vein access was obtained. Over an 0.018 wire through peel-away sheath, a 4fr single lumen PASV PICC line was positioned. Catheter length is 42cm internal length, 0cm external length, for a total trimmed length of 42cm. The procedure was performed in rm 272. Tip verification was performed by Tristan Peterson with Sherlock 3CG. Tip located in SVC. Ultrasound was used to document vein patency and for needle entry. A formal ultrasound picture and cardiac rhythm strip was recorded. Vascular Perforator Typist has released the line for use and it is currently dressed with a StatLock, Tegaderm, and CHG disc. Verification has been performed for blood return and line patency. Arm Circumference: 45cm Equipment: Ikanos PowerPICC SOLO catheter with Sherlock 3CG Catheter Type: 4FR single lumen PASV PICC catheter Lot #: [id number]
--- NOTE | 2024-02-26 13:18 | P.PNGS_ITS ---
Subjective Subjective Date of Service: 02/26/24 Interval history: Patient reports continued drainage from I&D site. Still some pain but improving Physical Exam 2 Vital Signs: Vital Signs: Last Vital Signs Temp 97.3 F 02/26/24 11:37 Pulse 83 02/26/24 11:37 Resp 18 02/26/24 11:37 BP 130/75 02/26/24 11:37 Pulse Ox 97 02/26/24 11:37 O2 Del Method Room Air 02/26/24 11:37 BMI result Body Mass Index 40.9 Const: General: comfortable Nutritional Appearance: obese O rientation/consciousness: patient oriented x3 Resp: Effort & Inspection: normal respiratory effort Back/Spine/Pelvis: Other: Dressings changed to I&D site on left buttock. Moderate amount of discharge noted from wound. Residual induration noted however no further fluctuance. Minimal erythema. Neuro: General: patient oriented x3 Extrem: General: Yes normal to inspection Objective Data Active Medications Amlodipine Besylate (Amlodipine Besylate 2.5 Mg Tablet) 7.5 mg PO DAILY [facility]; Protocol Last Admin: 02/26/24 08:10 Dose: 7.5 mg Documented By: MARI Enoxaparin Sodium (Enoxaparin Sodium 40 Mg/0.4 Ml Syringe) 40 mg SUBCUT Q24H [facility] Last Admin: 02/26/24 08:10 Dose: 40 mg Documented By: MARI Dextrose (D10) 250 mls @ 750 mls/hr IV Q30M PRN PRN Reason: BG <70 Vancomycin HCl 1,000 mg/Vancomycin HCl 750 mg/ Sodium Chloride 535 mls @ 267.5 mls/hr IV Q12H [facility] Last Admin: 02/26/24 13:07 Dose: 267.5 mls/hr Documented By: MARI Potassium Phosphate (Kphos) 15 mmol in 250 mls @ 62.5 mls/hr IV ONCE ONE Stop: 02/26/24 13:26 Last Admin: 02/26/24 10:39 Dose: 62.5 mls/hr Documented By: MARI Insulin Glargine (Insulin Glargine,Hum.Rec.Anlog 100 Unit/Ml 10 Ml Vial) 20 unit SUBCUT DAILY [facility] Insulin Human Lispro (Insulin Lispro 100 Unit/Ml 3 Ml Vial) 0 unit SUBCUT QIDACHS [facility]; Protocol Last Admin: 02/26/24 13:07 Dose: 4 unit Documented By: MARI Insulin Human Lispro (Insulin Lispro 100 Unit/Ml 3 Ml Vial) 5 unit SUBCUT QIDAS [facility] Last Admin: 02/26/24 13:07 Dose: 5 unit Documented By: MARI Lisinopril (Lisinopril 5 Mg Tablet) 5 mg PO DAILY [facility]; Protocol Last Admin: 02/26/24 08:10 Dose: 5 mg Documented By: MARI Lorazepam (Lorazepam 1 Mg Tablet) 1 mg PO Q6H PRN PRN Reason: Anxiety Last Admin: 02/24/24 09:06 Dose: 1 mg Documented By: DALILA Methadone HCl (Methadone Hcl 20 Mg/2 Ml Oral.Conc) 10 mg PO DAILY PRN PRN Reason: Opiate Withdrawal Methadone HCl (Methadone Hcl 20 Mg/2 Ml Oral.Conc) 75 mg PO DAILY [facility] Last Admin: 02/26/24 08:12 Dose: 75 mg Documented By: MARI Morphine Sulfate (Morphine Sulfate 2 Mg/Ml Cartridge) 2 mg IVPUSH Q4H PRN; Protocol PRN Reason: Pain, Severe (Pain Scale 7-10) Last Admin: 02/26/24 13:14 Dose: 2 mg Documented By: MARI Ondansetron HCl (Ondansetron Hcl 4 Mg/2 Ml Vial) 4 mg IVPUSH Q8H PRN PRN Reason: Nausea and Vomiting Last Admin: 02/24/24 20:44 Dose: 4 mg Documented By: BECK Pharmacy Consult (Consult Rx Vancomycin Dosing) 1 each MISCELLANE DAILY PRN PRN Reason: Consult order Potassium Chloride (Potassium Chloride Er 20 Meq Tab.Er.Prt) 20 meq PO DAILY [facility] Last Admin: 02/26/24 08:10 Dose: 20 meq Documented By: MARI Labs 02/23/24 08:34 02/26/24 07:34 Labs: Laboratory Results - last 24 hr 02/25/24 02/25/24 02/25/24 09:38 16:01 20:15 Anion Gap Cancelled Estim Creat Clear Calc Cancelled Estimated GFR Cancelled POC Glucose 218 H 265 H Random Glucose Cancelled Calcium Cancelled Random Vancomycin 02/25/24 02/26/24 02/26/24 21:40 07:34 07:40 Anion Gap 11 L Estim Creat Clear Calc 168.1 Estimated GFR > 60 POC Glucose 281 H Random Glucose 270 H Calcium 8.3 L Random Vancomycin 13.5 L 02/26/24 11:39 Anion Gap Estim Creat Clear Calc Estimated GFR POC Glucose 230 H Random Glucose Calcium Random Vancomycin Procedures Date of Service Date of Service: 02/26/24 Progress Note: A&P Assessment and plan (1) Abscess of buttock, left: Status: Acute Plan Left buttock abscess status post incision and drainage. Wound is open and draining and slowly improving. Continue local wound care with dressing changes. Warm soaks would be helpful as well. Time Spent With Patient Time: Total time managing care of this patient today ____ minutes. Quality Stroke Does the patient have a stroke diagnosis?: No VTE Prior VTE?: No VTE Risk Level:: Medical - low VTE Device Contraindication: Treatment Not Indicated VTE Drug Contraindication: N/A - Med Ordered
[2024-02-26 16:21] LABS: Glucose, Whole Blood 217 mg/dL (60-115)
--- NOTE | 2024-03-04 08:59 | P.CDIM_ITS ---
PROVIDER RESPONSE TEXT: To clarify, the appropriate diagnosis supported by the clinical indicators: I & D left buttock: skin and subcutaneous tissue. QUERY TEXT: PHYSICIAN'S DOCUMENTATION REQUEST Date of Query: 02/26/2024 11:45 AM EDT Patient Name: Misty Schmitt Admit Date: 02/21/2024 Dear Jeremi Montano MD, A review of the medical record indicates additional documentation may be needed. Please review below and update the documentation accordingly. Clinical Indicators: Op note dated 02/23/24 - I&D left buttock abscess Procedure performed at bedside. An eleven blade was used to incise the large abscess. A large collect ion was drained. Wound was irrigated and saline solution. Abscess cavity was then packed with quarter-inch Nu Gauze. Could you provide, in the Progress Notes, further clarification regarding the depth of this I&D: I & D left buttock Skin, subcutaneous tissue and fascia, etc. Other (explain) Clinically unable to determine (explain) Thank you, Mary Napoles, CCS, CDIS Use of terms such as suspected, likely, concern for, or probable (associated with a specific diagnosi s that is being evaluated, monitored, or treated as if it exists) are acceptable and can be coded in the inpatient se tting, when documented at the time of discharge. Please use your independent medical judgment in providing your response. THIS QUERY IS PART OF THE PERMANENT MEDICAL RECORD
== END 2024-02-26 16:50 | DRG 951 ==
LOC: HO.ED 23:34 → HO.EDOVER 02-21 01:08 → HO.ICU 02-21 01:53 → HO.IMC 02-21 09:04
PROVIDERS: Internal Medicine Pulmonary Disease; Physician Assistant Medical; Admitting Provider Registered Nurse Community Health; Emergency Provider Student in an Organized Health Care Education/Training Program; Visit Provider Nurse Practitioner Acute Care
DX: E11.10 Type 2 diabetes mellitus with ketoacidosis without coma (principal); R78.81 Bacteremia; E85.0 Non-neuropathic heredofamilial amyloidosis; E88.09 Other disorders of plasma-protein metabolism, not elsewhere classified; F11.20 Opioid dependence, uncomplicated; D50.9 Iron deficiency anemia, unspecified; E28.2 Polycystic ovarian syndrome; E66.01 Morbid (severe) obesity due to excess calories; L02.31 Cutaneous abscess of buttock; B95.61 Methicillin susceptible Staphylococcus aureus infection as the cause of diseases classified elsewhere; E87.6 Hypokalemia; E86.0 Dehydration; L98.499 Non-pressure chronic ulcer of skin of other sites with unspecified severity; E11.628 Type 2 diabetes mellitus with other skin complications; F19.90 Other psychoactive substance use, unspecified, uncomplicated; L03.114 Cellulitis of left upper limb; I10 Essential (primary) hypertension; L03.317 Cellulitis of buttock; Z68.41 Body mass index [BMI] 40.0-44.9, adult; Z87.891 Personal history of nicotine dependence; Z91.148 Patient's other noncompliance with medication regimen for other reason; Z79.4 Long term (current) use of insulin; Z79.899 Other long term (current) drug therapy
CPT/HCPCS: 36410; 36415; 36573; 71045; 74177; 80048; 80053; 80076; 80202; 80307; 81001; 82010; 82565; 82803; 82947; 83605; 83690; 83735; 84100; 84145; 84702; 85025; 85027; 86803; 87040; 87077; 87147; 87186; 87205; 87389; 93005; 93306; 99285; C1751; J0690; J0696; J1644; J1650; J1920; J2270; J2405; J2543; J3370; J3371; J3480; J7120; P9047; Q9957; Q9967; S9485

== ENCOUNTER → 2024-02-21 00:51 | Outpatient (BNV) | payer OTHER, SELFPAY | PROVIDERS: Admitting Provider Registered Nurse Community Health; Emergency Provider Student in an Organized Health Care Education/Training Program; Visit Provider Internal Medicine Cardiovascular Disease | DX: R00.0 Tachycardia, unspecified (principal) | CPT/HCPCS: 93010 ==

== ENCOUNTER 2024-02-21 01:02 | Outpatient (BNV) | payer OTHER, SELFPAY | END 2024-02-22 07:00 | PROVIDERS: Admitting Provider Registered Nurse Community Health; Emergency Provider Student in an Organized Health Care Education/Training Program; Visit Provider Internal Medicine Cardiovascular Disease | DX: R78.81 Bacteremia (principal) | CPT/HCPCS: 93306 ==

== ENCOUNTER → 2024-02-21 01:02 | Outpatient (BNV) | payer OTHER, SELFPAY | PROVIDERS: Admitting Provider Registered Nurse Community Health; Emergency Provider Student in an Organized Health Care Education/Training Program; Visit Provider Surgery | DX: L02.31 Cutaneous abscess of buttock (principal) | CPT/HCPCS: 10060; 99024; 99212; 99222 ==

== ENCOUNTER → 2024-02-21 01:02 | Outpatient (BNV) | payer OTHER, SELFPAY | PROVIDERS: Admitting Provider Registered Nurse Community Health; Emergency Provider Student in an Organized Health Care Education/Training Program; Visit Provider Internal Medicine | DX: L02.31 Cutaneous abscess of buttock (principal); A41.9 Sepsis, unspecified organism | CPT/HCPCS: 99222 ==

== ENCOUNTER → 2024-02-21 01:02 | Outpatient (BNV) | payer OTHER, SELFPAY | PROVIDERS: Admitting Provider Registered Nurse Community Health; Emergency Provider Student in an Organized Health Care Education/Training Program; Visit Provider Nurse Practitioner Psychiatric/Mental Health | DX: F11.90 Opioid use, unspecified, uncomplicated (principal) | CPT/HCPCS: 99232; 99499 ==

== ENCOUNTER → 2024-02-21 01:02 | Outpatient (BNV) | payer OTHER, SELFPAY | PROVIDERS: Admitting Provider Registered Nurse Community Health; Emergency Provider Student in an Organized Health Care Education/Training Program; Visit Provider Physician Assistant Medical | DX: R78.81 Bacteremia (principal); L03.90 Cellulitis, unspecified; R73.9 Hyperglycemia, unspecified; L02.31 Cutaneous abscess of buttock | CPT/HCPCS: 99232; 99233; 99239; 99499 ==

== ENCOUNTER → 2024-02-21 01:02 | Outpatient (BNV) | payer OTHER, SELFPAY | PROVIDERS: Admitting Provider Registered Nurse Community Health; Emergency Provider Student in an Organized Health Care Education/Training Program; Visit Provider Internal Medicine Pulmonary Disease | DX: E11.10 Type 2 diabetes mellitus with ketoacidosis without coma (principal); L03.114 Cellulitis of left upper limb; F11.10 Opioid abuse, uncomplicated | CPT/HCPCS: 99232 ==

== ENCOUNTER → 2024-02-21 01:02 | Outpatient (BNV) | payer OTHER, SELFPAY | PROVIDERS: Admitting Provider Registered Nurse Community Health; Emergency Provider Student in an Organized Health Care Education/Training Program; Visit Provider Registered Nurse Community Health | DX: E11.10 Type 2 diabetes mellitus with ketoacidosis without coma (principal); I10 Essential (primary) hypertension; E86.0 Dehydration; D72.829 Elevated white blood cell count, unspecified; L03.90 Cellulitis, unspecified | CPT/HCPCS: 99223 ==

== ENCOUNTER 2024-02-28 12:49 | Inpatient (IN) | payer OTHER, SELFPAY ==
[2024-02-28 12:58] VITALS: BP 98/63; PULSE 98
[2024-02-28 13:21] VITALS: BP 116/60; PULSE 80; RESP 16; TEMP 36.6; O2SAT 97; BMI 42.4
--- NOTE | 2024-02-28 14:20 | ED.GENADULT ---
HPI - General Adult General Chief complaint: Skin/Abscess/Foreign Body Stated complaint: WEAK,FEVER,BUTTOCK ABSCESS PER EMS Time Seen by Provider: 02/28/24 13:46 Source: patient, EMS and old records reviewed Mode of arrival: EMS Limitations: no limitations History of Present Illness ED Provider: KELLY HPI narrative: 38 yo female with PMH of DM, HTN, polysubstance abuse on methadone just admitted and DC here on 02/25 to [facility] with PICC Line for IV vancomycin - initially managed in ICU for DKA, gluteal absess underwent I+D on 02/22 - MSSA bacteremia on vancomycin 1,000mg Q12H last dose 03/20 negative ECHO for vegetations. She left [facility] yesterday didn't like it there left AMA and PICC line was pulled I needed a break she returned today asking for another PICC Line and then hoping she can stay here for her course of IV antibiotics. complaint: back for PICC Line and IV abx Onset (ago): day(s) (1) Location: buttocks Radiation: non-radiation Severity: moderate Quality: aching Pain Consistency: constant Relieving factors: none Exacerbating factors: movement Associated symptoms: fever/chills Treatments prior to arrival: none Related Data Previous Rx's ?Medication ?Instructions ?Recorded blood sugar diagnostic (FreeStyle #100 ea 02/14/23 Lite Strips) amlodipine 5 mg tablet 7.5 mg (1.5 x 5 mg) PO DAILY 60 11/29/23 days #90 tabs blood sugar diagnostic (FreeStyle #100 ea 11/29/23 Lite Strips) blood-glucose meter (FreeStyle #1 ea 11/29/23 Lite Meter kit) insulin lispro 100 unit/mL See Rx Instructions .Route 11/29/23 subcutaneous pen (Humalog KwikPen .COMPLEX #15 mL (U-100) Insulin) lancets 28 gauge (FreeStyle #100 ea 11/29/23 Lancets) lisinopril 5 mg tablet 5 mg PO DAILY 60 days #60 tabs 11/29/23 pen needle, diabetic 32 gauge x #100 ea 11/29/23 1/ insulin glargine 100 unit/mL 20 unit (0.2 mL) subcut DAILY #10 02/26/24 subcutaneous solution (Lantus mL U-100 Insulin) methadone 10 mg/mL oral concentrate 75 mg (7.5 mL) PO DAILY #30 mL 02/26/24 potassium chloride 20 mEq 20 meq PO DAILY #7 tabs 02/26/24 tablet,extended release(part/cryst) vancomycin 1 gram/250 mL in 0.9 % 1 g (250 mL) IV Q12H 02/26/24 sodium chloride intravenous Allergies Allergy/AdvReac Type Severity Reaction Status Date / Time No Known Allergies Allergy Verified 02/28/24 13:24 Review of Systems Review of Systems: Constitutional : No Fever, pos Chills ENT/Mouth : No sore throat, No Rhinorrhea Eyes: No Eye Pain, No Swelling, No Redness Cardiovascular : No Chest Pain, No SOB Respiratory : No Cough, No Sputum Gastrointestinal : No Nausea, No Vomiting, No Diarrhea, No abdominal Pain Genitourinary : No Dysuria, No Hematuria Musculoskeletal : No joint pain, No Myalgias, No Joint Swelling Skin : No Skin Lesions, positive skin rash Neuro : No Weakness, No Numbness, No Headache Psych : No Anxiety, No Depression Heme/Lymph: No Bruising, No Bleeding,No Lymphadenopathy Endocrine : No Polyuria, No Polydipsia All other systems reviewed and are negative [facility] Past Medical History Attestation statement: The following information was validated with the patient. Source: old records reviewed Medical History Sepsis PCOS (polycystic ovarian syndrome) Rash Polysubstance (excluding opioids) dependence, daily use Methadone maintenance therapy patient Anxiety and depression Diabetes Social History Social History Household Members: Children Household Members Other:: daughter Housing: House Do you presently have visiting nurse or other home services: No Alcohol intake: current Alcohol intake frequency: does not drink Patient Tobacco Use Status: Former Tobacco user Tobacco use type: Cigarette Cigarette Packs Per Day: 3 Cigarettes Per Day: 60.0 Years Smoked: 2 e-Cigarette/Vaping Use: Never Used Substance Use Type: Heroin and Marijuana Advance Directives: Yes Advance Directives on File: Yes Advance Directives Date on File: 01/11/22 service: No Current occupational status: unemployed Physical Exam ED Vital Signs: Vital Signs - 24 hr 02/28/24 13:21 Temperature 98 F Pulse Rate 80 Respiratory Rate 16 Blood Pressure 116/60 Pulse Oximetry 97 Oxygen Delivery Method Room Air BMI result Body Mass Index 42.4 Appearance: Alert. Oriented X3. No acute distress. Eyes: Pupils equal, round and reactive to light. ENT: Pharynx normal. Neck: Normal inspection. Neck supple. CVS: Normal heart rate and rhythm. Pulses normal. Respiratory: No respiratory distress. Breath sounds normal. Abdomen: Soft and nontender. Buttocks: in hallway cannot examine Skin: Skin warm and dry. Normal skin color. Normal skin turgor. Extremities: No lower extremity edema. No calf ttp Neuro: Oriented X 3. No motor deficit. No sensory deficit. Course Course Course Narrative: patient cannot afford to manage her wounds at home and cannot do it herself, needs rehab Medications Administered Discontinued Medications Generic Name Dose Route Start Last Admin Trade Name Freq PRN Reason Stop Dose Admin Sodium Chloride 1,000 mls @ 999 mls/hr 02/28/24 14:17 02/28/24 15:31 Ns IV 02/28/24 15:17 999 mls/hr .Q1H1M ONE Administration Procedures EJ/Peripheral Line Arm R: Time Out Performed: Yes Skin Cleansed in Sterile Fashion: Yes Size (gauge): 20 IV Secured and Dressing Applied: Yes Patient Tolerated Procedure: well and no complications Additional Comments: US guided Medical Decision Making Medical Decision Making [facility] Narrative: 38 yo female with PMH of DM, HTN, polysubstance abuse on methadone just admitted and DC here on 02/25 to [facility] with PICC Line for IV vancomycin s/p MSSA bacteremia and negative ECHO at this time will need basic labs, cultures, I am going to start on her IV vancomycin and kar ask I+D about oral options as well as case management to talk to her as she states she doesn't want to go to a facility to a PICC line would not be appropriate. Differential Diagnosis Differential Diagnoses: The differential diagnosis associated with the presentation includes MSSA bacteremia, cellulitis Admission/Observation Consideration of admission/observation: Escalation of care including admission/observation considered will need admission - PICC line placement and IV antibiotics confirmed with cannot be placed until cultures negative given she left facility and reported fevers/chills at home Consult Healthcare Provider Management of the patient was discussed with: Hospitalist (will admit) and Assistant Construction Superintendent ( - [facility] or [facility]) Lab Data [facility] Lab Attestation statement: I reviewed the patient's lab results. 02/28/24 15:06 02/28/24 15:06 Labs: Lab Results 02/28/24 02/28/24 Range/Units 15:06 15:11 WBC 12.4 H (4.8-10.8) X10*3/uL RBC 4.03 L (4.20-5.50) X10*6/uL Hgb 10.0 L (12.0-16.0) g/dl Hct 32.1 L (37.0-47.0) % MCV 79.7 L (80.0-98.0) fL MCH 24.8 L (27.0-33.0) pg MCHC 31.2 (31.0-35.0) g/dl RDW 15.1 (11.0-16.0) % Plt Count 424 H (160-400) X10*3/uL MPV 8.3 L (9.4-12.3) fL Immature Gran % (Auto) 2.8 H (0.0-0.4) % Neut % (Auto) 57.7 (45-73) % Lymph % (Auto) 28.7 (20-40) % [place] % (Auto) 9.4 (2-11) % Eos % (Auto) 1.1 (0-4) % Baso % (Auto) 0.3 (0-2) % Lymph # (Auto) 3.6 (1.2-4.9) X10*3/uL [place] # (Auto) 1.2 (0.1-1.2) X10*3/uL Eos # (Auto) 0.1 (0.0-0.4) X10*3/uL Baso # (Auto) 0.0 (0.0-0.2) X10*3/uL Abs Immat Gran (auto) 0.35 H (0.00-0.03) X10*3/uL Absolute Neuts (auto) 7.2 (2.0-8.3) x10*3/uL Absolute Nucleated RBC 0.000 (0.0-0.012) X10*3/uL Nucleated RBC % (auto) 0.0 (0.0-0.2) /100WBC VBG pH 7.47 H (7.32-7.43) VBG pCO2 48 mmHg VBG pO2 39 mmHg VBG HCO3 35 H (22-26) mmol/L VBG O2 Saturation 61.0 % VBG Base Excess 10.5 mmol/L Sodium 133 L (135-145) mmol/L Potassium 3.0 L (3.3-5.1) mmol/L Chloride 94 L (96-108) mmol/L Carbon Dioxide 30 H (22-29) mmol/L Anion Gap 12 (12-20) BUN 4 L (9-16) mg/dL Creatinine 0.80 (0.5-1.4) mg/dL Estim Creat Clear Calc 135.2 Estimated GFR > 60 Random Glucose 346 H (60-115) mg/dL Lactic Acid 2.1 H* (0.5-2.0) mmol/L Calcium 8.4 (8.4-10.2) mg/dL Magnesium 1.6 (1.6-2.6) mg/dL Total Bilirubin 0.3 (0.0-1.0) mg/dL Direct Bilirubin 0.1 (0.0-0.5) mg/dL AST 12 (5-31) U/L ALT 7 (0-31) U/L Alkaline Phosphatase 79 (39-117) U/L Total Protein 7.9 (6.5-8.0) g/dL Albumin 3.2 L (3.5-5.0) g/dL Lipase 12 (8-78) U/L Procalcitonin 0.03 ng/mL Independent Historian Clinical information obtained from an independent historian. History obtained from or confirmed by: EMS External Record Review External record reviewed: Inpatient record Discharge Plan Discharge Clinical Impression: MSSA bacteremia, Acute hyperglycemia, Acute hypokalemia, Acidosis, lactic Patient Disposition: Admitted As Inpatient Prescriptions: No Action (DME) FreeStyle Lite Strips Strip Qty: 100 0RF Rx Instructions: Test four times a day or as directed. (DME) FreeStyle Lite Strips Strip Qty: 100 0RF Rx Instructions: Test four times a day or as directed. (DME) blood-glucose meter [FreeStyle Lite Meter] Kit Qty: 1 0RF Rx Instructions: As Directed insulin lispro [Humalog KwikPen Insulin] 100 unit/mL insulin pen See Rx Instructions .ROUTE .COMPLEX MDD 30 Qty: 15 0RF Rx Instructions: Blood Sugar: <150 - 0 units 151-200 - 2 units 201-250 - 4 units 251-300 - 6 units 301-350 - 8 units >350 - 10 units (DME) pen needle, diabetic 32 gauge x 1/4 needle Qty: 100 0RF Rx Instructions: Use four times a day or as directed. (DME) lancets [FreeStyle Lancets] 28 gauge misc Qty: 100 0RF Rx Instructions: Test four times a day or as directed. amlodipine 5 mg tablet 7.5 mg PO DAILY 60 Days Qty: 90 0RF lisinopril 5 mg tablet 5 mg PO DAILY 60 Days Qty: 60 0RF potassium chloride 20 mEq Tablet,Er Particles/Crystals 20 meq PO DAILY Qty: 7 0RF methadone 10 mg/mL Concentrate 75 mg PO DAILY Qty: 30 0RF Rx Instructions: [facility] vancomycin in 0.9 % sodium chl 1 gram/250 mL solution 1 g IV Q12H insulin glargine [Lantus U-100 Insulin] 100 unit/mL Solution 20 unit subcut DAILY Qty: 10 0RF Print Language: Macanese
[2024-02-28 15:11] LABS: MANUAL DIFF FLAG NO
[2024-02-28 15:15] LABS: Basophils Percent Auto 0.3 % (0-2); Eosinophils Absolute Auto 0.1 X10*3/uL (0.0-0.4); Eosinophils Percent Auto 1.1 % (0-4); Hematocrit 32.1 % (37.0-47.0); Imm Gran Abs Auto 0.35 X10*3/uL (0.00-0.03); Imm Gran Pct Auto 2.8 % (0.0-0.4); Lymphocytes Absolute Auto 3.6 X10*3/uL (1.2-4.9); Lymphocytes Percent Auto 28.7 % (20-40); Mean Corpuscular HGB Conc 31.2 g/dl (31.0-35.0); Mean Corpuscular Hemoglobin 24.8 pg (27.0-33.0); Mean Corpuscular Volume 79.7 fL (80.0-98.0); Mean Platelet Volume 8.3 fL (9.4-12.3); Monocytes Absolute Auto 1.2 X10*3/uL (0.1-1.2); Monocytes Percent Auto 9.4 % (2-11); Neutrophils Absolute Auto 7.2 x10*3/uL (2.0-8.3); Neutrophils Percent Auto 57.7 % (45-73); Platelet Count 424 X10*3/uL (160-400); Red Blood Count 4.03 X10*6/uL (4.20-5.50); Red Cell Distribution Width 15.1 % (11.0-16.0); White Blood Count 12.4 X10*3/uL (4.8-10.8)
[2024-02-28 15:21] LABS: VBG Base Excess 10.5 mmol/L; VBG HCO3 35 mmol/L (22-26); VBG pCO2 48 mmHg; VBG pH 7.47 (7.32-7.43); VBG pO2 39 mmHg
[2024-02-28 15:21] LABS: Venous Blood Gas Refer to POC result
[2024-02-28 15:27] LABS: Lactic Acid 2.1 mmol/L (0.5-2.0)
[2024-02-28] MEDS: 0.9 % Sodium Chloride 1,000 ML 999 ML IV (15:31)
--- NOTE | 2024-02-28 15:32 | PC.NURSE ---
pt a severely difficult poke. informed MD Cruz and request made for u/s guided IV. access obtained, 20G placed in RAC by U/S guidance. labs obtained. BC collected x1. will attempt second BC however if unable to obtain MD Cruz ok with only set of BC
[2024-02-28 15:35] LABS: Alanine Aminotransferase 7 U/L (0-31); Albumin Level 3.2 g/dL (3.5-5.0); Alkaline Phosphatase 79 U/L (39-117); Anion Gap 12 (12-20); Aspartate Amino Transferase 12 U/L (5-31); Bilirubin Direct 0.1 mg/dL (0.0-0.5); Bilirubin Total 0.3 mg/dL (0.0-1.0); Blood Urea Nitrogen 4 mg/dL (9-16); Calcium 8.4 mg/dL (8.4-10.2); Carbon Dioxide 30 mmol/L (22-29); Chloride 94 mmol/L (96-108); Creatinine Clr Calc Pharmacy 135.2; Estimated Glomerular Filt Rate > 60; Glucose Random 346 mg/dL (60-115); Lipase 12 U/L (8-78); Magnesium 1.6 mg/dL (1.6-2.6); Sodium 133 mmol/L (135-145); Total Protein 7.9 g/dL (6.5-8.0)
[2024-02-28 15:49] LABS: Procalcitonin 0.03 ng/mL
[2024-02-28] MEDS: Potassium Chloride Packet 20 MEQ PACKET 40 MEQ PO (16:17)
[2024-02-28] MEDS: vancomycin/NS 2,000 MG/500 ML PLAST..BAG 250 MG IV (16:17)
[2024-02-28] MEDS: Insulin Regular, Human 100 UNIT/ML 10 ML VIAL IVPUSH (16:18)
--- NOTE | 2024-02-28 16:28 | PM.IMHP ---
History of Present Illness Date of Service: 02/28/24 Attending physician on admission: Anthony Greenwood Chief Complaint: bacteremia, buttock wound This is a 38-year-old female with history of IVDU, recent admission for MSSA bacteremia, and large buttock abcess who returns to the ED seeking help. A PICC line was placed on February 25 and she was discharged to [facility] with the plans for 4 weeks of IV antibiotics. Unfortunately she left against medical advice yesterdayshe did not feel that she was getting the care that she needed. She had been trying to manage her buttock wound at home but has been soaking through 8 boxes of gauze in the last day and a half and was having difficulty managing her care. In addition she acknowledges that she needs IV antibiotics and presents for further care. On admission she was noted to have leukocytosis of 12.4 which is lower than her previous admission, she was afebrile. New Blood cultures were obtained and she received a dose of IV vancomycin. Review of Systems Review of Systems: Yes all other systems are reviewed and are negative Constitutional: Constitutional: Denies chills and Denies fever(s) ENT: Denies dizziness Cardiovascular: Cardiovascular: Denies chest pain, Denies palpitations and Denies dyspnea Respiratory: Respiratory: Denies cough and Denies dyspnea Gastrointestinal: Gastrointestinal: Denies abdominal pain, Denies nausea and Denies vomiting Neurologic: Denies dizziness Endocrine: Endocrine: Denies palpitations [facility] Medical History Sepsis PCOS (polycystic ovarian syndrome) Rash Polysubstance (excluding opioids) dependence, daily use Methadone maintenance therapy patient Anxiety and depression Diabetes Social History Household Members: Children Household Members Other:: daughter Housing: House Do you presently have visiting nurse or other home services: No Alcohol intake: current Alcohol intake frequency: does not drink Patient Tobacco Use Status: Former Tobacco user Tobacco use type: Cigarette Cigarette Packs Per Day: 3 Cigarettes Per Day: 60.0 Years Smoked: 2 Smoked in Last 30 Days: No e-Cigarette/Vaping Use: Never Used Use of substances other than those prescribed or required for medical reasons: Yes Substance Use Type: Heroin and Marijuana Last Used Substance: Days (ago) Any prior treatment program specific to substance use: Yes ([facility]) Advance Directives: Yes Advance Directives on File: Yes Advance Directives Date on File: 01/11/22 Nutrition Risks: No Nutritional Risk service: No Current occupational status: unemployed Meds Allergies Allergy/AdvReac Type Severity Reaction Status Date / Time No Known Allergies Allergy Verified 02/28/24 13:24 Active Medications: Current Medications Vancomycin HCl (Vancomycin/Ns) 2,000 mg in 500 mls @ 250 mls/hr IV ONCE ONE Stop: 02/28/24 16:29 Last Admin: 02/28/24 16:17 Dose: 250 mls/hr Physical Exam Vital Signs and Narrative: Vital Signs: Last Vital Signs Temp 98 F 02/28/24 13:21 Pulse 80 02/28/24 13:21 Resp 16 02/28/24 13:21 BP 116/60 02/28/24 13:21 Pulse Ox 97 02/28/24 13:21 O2 Del Method Room Air 02/28/24 13:21 BMI result Body Mass Index 42.4 Const: General: cooperative, no acute distress, alert and awake Nutritional Appearance: obese Orientation/consciousness: patient oriented x3 Resp: Effort & Inspection: normal respiratory effort, able to speak in complete sentences, no respiratory distress and no use of accessory muscles Auscultation: clear to auscultation bilaterally Cardio: Rate: regular rate GI: Inspection: No distended Palpation (GI): Soft to palpation and nontender Skin: Other: left biceps chronic wound with scarring, no surrounding erythema; does not appear infected left buttock wound with induration and erythema, copious purulent drainage Neuro: General: patient oriented x3, moves all extremities and CN's II-XI intact bilaterally Extrem: General: Yes no pedal edema Results Labs 02/28/24 15:06 02/28/24 15:06 Labs: Laboratory Results - last 24 hr 02/28/24 02/28/24 15:06 15:11 MCV 79.7 L MCH 24.8 L MCHC 31.2 RDW 15.1 Plt Count 424 H MPV 8.3 L Immature Gran % (Auto) 2.8 H Neut % (Auto) 57.7 Lymph % (Auto) 28.7 [place] % (Auto) 9.4 Eos % (Auto) 1.1 Baso % (Auto) 0.3 Lymph # (Auto) 3.6 [place] # (Auto) 1.2 Eos # (Auto) 0.1 Baso # (Auto) 0.0 Abs Immat Gran (auto) 0.35 H Absolute Neuts (auto) 7.2 Absolute Nucleated RBC 0.000 Nucleated RBC % (auto) 0.0 VBG pH 7.47 H VBG pCO2 48 VBG pO2 39 VBG HCO3 35 H VBG O2 Saturation 61.0 VBG Base Excess 10.5 Anion Gap 12 Estim Creat Clear Calc 135.2 Estimated GFR > 60 Random Glucose 346 H Lactic Acid 2.1 H* Calcium 8.4 Magnesium 1.6 Total Bilirubin 0.3 Direct Bilirubin 0.1 AST 12 ALT 7 Alkaline Phosphatase 79 Total Protein 7.9 Albumin 3.2 L Lipase 12 Procalcitonin 0.03 Assessment and Plan (1) MSSA bacteremia: Status: Acute (2) Acute hypokalemia: Status: Acute (3) Abscess of buttock, left: Status: Acute Plan This is a 38-year-old female with history of cyclical vomiting syndrome, uncontrolled diabetes, hypertension admitted to the ICU due to DKA Buttock cellulitis and abscess diagnosed on previous admission seen by surgery and underwent I&D 02/23/24 continues with copious drainage and induration will consult surgery to see if further drainage is indicated MSSA bacteremia diagnosed on previous admission likely skin source was d/c on vancomycin but blood cultures were sensitive to PCN, will treat with IV cefazolin needs 4 weeks IV abx (end date 03/20/24), will need line placement when repeat cultures are negative Blood cultures pending Left arm wound Appears chronic, does not appear to be infected Wound care nurse following> see note for wound care Acute lactic acidosis Lactic acid 2.1 Does not meet sirs criteria. No sepsis Type 2 diabetes with hyperglycemia continue lantus, SSI, ADA diet Hypokalemia Replace as needed Follow BMP Opiate use disorder On methadone at baseline, will resume when dose confirmed Hypertension Continue lisinopril, Norvasc when med rec has been completed Chronic microcytic anemia Above transfusion threshold Follow up CBC Morbid obesity BMI 42.4 Weight loss encouraged DVT prophylaxis-mechanical devices in the event that she needs further drainage of abscess site full code Patient will likely require 2 midnight stay in the hospital for IV antibiotics and management of left buttock wound and bacteremia Quality Stroke Does the patient have a stroke diagnosis?: No VTE Prior VTE?: No VTE Risk Level:: Medical - moderate - high VTE Device Contraindication: N/A - Device Ordered VTE Drug Contraindication: N/A - Med Ordered
[2024-02-28 17:10] LABS: Reflex Lactate? Lactic Acid Added
--- NOTE | 2024-02-28 18:17 | PC.NURSE ---
pts u/s guided line infiltrated, Robe OLEARY made aware. contacting ICU for further assistance on U/S line placement
[2024-02-28 18:20] LABS: Amphetamine Screen Urine Not Detected (Not Detect); Barbiturates, Urine Not Detected (Not Detect); Benzodiazepines Screen Urine Not Detected (Not Detect); Buprenorphine Scr Not Detected (Not Detect); Cannabinoid Screen Urine POSITIVE (Not Detect); Cocaine Screen Urine Not Detected (Not Detect); Fentanyl, urine POSITIVE (Not Detect); Methadone Screen, Urine Positive (Not Detect); Opiate Screen Urine POSITIVE (Not Detect); Oxycodone Screen Urine Not Detected (Not Detect); Phencyclidine Screen Urine Not Detected (Not Detect)
[2024-02-28 18:28] VITALS: BP 145/72; PULSE 83; RESP 13; TEMP 36.4; O2SAT 98
[2024-02-28 18:36] LABS: Glucose, Whole Blood 196 mg/dL (60-115)
--- NOTE | 2024-02-28 19:03 | PHA.MEDREC ---
Pharmacy Consult ? Medication Reconciliation Pharmacy has completed the medication reconciliation.Patient was just discharged on 02/25. Continued same med list from this admission.
[2024-02-28] MEDS: Docusate Sodium 100 MG CAPSULE PO (19:48)
[2024-02-28] MEDS: 0.9 % Sodium Chloride Flush 3 ML SYRINGE IVFLUSH (19:48)
[2024-02-28] MEDS: polyethylene glycoL 3350 17 GM POWD.PACK PO (19:48)
[2024-02-28] MEDS: ceFAZolin Sodium/Dextrose,Iso 2 GM/50 ML PIGGYBACK IV (19:48)
[2024-02-28 20:16] VITALS: BP 141/83; PULSE 99; RESP 13; TEMP 36.3; O2SAT 99
[2024-02-28 20:22] LABS: Glucose, Whole Blood 265 mg/dL (60-115)
[2024-02-28] MEDS: Insulin Lispro 100 UNIT/ML 3 ML VIAL SUBCUT (20:52)
--- NOTE | 2024-02-28 22:37 | HO.SKINPHOTO ---
Location: left buttock abscess Category: Stage: Length: Width: Depth: cm Location: Category: Stage: Length: Width: Depth: cm Location: Category: Stage: Length: Width: Depth: cm Location: Category: Stage: Length: Width: Depth: cm Location: Category: Stage: Length: Width: Depth: cm Location: Category: Stage: Length: Width: Depth: cm
--- NOTE | 2024-02-28 22:38 | HO.SKINPHOTO ---
Location:left upper arm old injection site Category: Stage: Length: Width: Depth: cm Location: Category: Stage: Length: Width: Depth: cm Location: Category: Stage: Length: Width: Depth: cm Location: Category: Stage: Length: Width: Depth: cm Location: Category: Stage: Length: Width: Depth: cm Location: Category: Stage: Length: Width: Depth: cm
[2024-02-29] VITALS: BP 142/74; PULSE 82; RESP 18; TEMP 36.1; O2SAT 97
[2024-02-29] MEDS: ceFAZolin Sodium/Dextrose,Iso 2 GM/50 ML PIGGYBACK IV ×3 (02:04→17:00)
[2024-02-29 06:59] VITALS: BP 158/76; PULSE 83; RESP 18; TEMP 36.8; O2SAT 97
[2024-02-29 07:09] LABS: Glucose, Whole Blood 298 mg/dL (60-115)
[2024-02-29] MEDS: amLODIPine Besylate 2.5 MG TABLET 7.5 MG PO (07:55)
[2024-02-29] MEDS: Potassium Chloride ER 20 MEQ TAB.ER.PRT PO (07:55)
[2024-02-29] MEDS: Docusate Sodium 100 MG CAPSULE PO ×2 (07:55→21:13)
[2024-02-29] MEDS: lisinopriL 5 MG TABLET PO (07:55)
[2024-02-29] MEDS: Insulin Glargine,Hum.rec.anlog 100 UNIT/ML 10 ML VIAL 20 UNIT SUBCUT (07:56)
[2024-02-29] MEDS: methADONE HCl 20 MG/2 ML ORAL.CONC 75 MG PO (07:56)
[2024-02-29] MEDS: Insulin Lispro 100 UNIT/ML 3 ML VIAL SUBCUT ×4 (07:57→21:13)
[2024-02-29] MEDS: 0.9 % Sodium Chloride Flush 3 ML SYRINGE IVFLUSH ×3 (08:02→21:14)
--- NOTE | 2024-02-29 08:48 | PM.CNGS ---
History of Present Illness Consult details Consult date: 02/29/24 Narrative: 38-year-old female patient known to service with a left buttock abscess status post incision and drainage last week returning today from nursing facility after patient left against medical advice feeling she was being ignored at the facility. She has a past medical history of IV drug use and was planned to have 4 weeks of IV antibiotics for MSSA bacteremia. The patient underwent incision and drainage of a large buttock abscess which continues to drain today especially when up and ambulating. Overall she feels improved however with decreased buttock pain. Her WBC is decreased to 12.4. She has admitted to the hospitalist service for IV antibiotics. Review of Systems Review of Systems: Yes all other systems are reviewed and are negative PMFSH Past Medical History Medical History Sepsis PCOS (polycystic ovarian syndrome) Rash Polysubstance (excluding opioids) dependence, daily use Methadone maintenance therapy patient Anxiety and depression Diabetes Social History Social History Household Members: Other Household Members Other:: daughter Housing: Apartment Do you presently have visiting nurse or other home services: No Alcohol intake: current Alcohol intake frequency: does not drink Patient Tobacco Use Status: Former Tobacco user Tobacco use type: Cigarette Cigarette Packs Per Day: 3 Cigarettes Per Day: 60.0 Years Smoked: 2 Smoked in Last 30 Days: No e-Cigarette/Vaping Use: Never Used Use of substances other than those prescribed or required for medical reasons: Yes Substance Use Type: Heroin and Marijuana Substance Use Frequency: Daily Last Used Substance: Days (ago) Currently Displaying Signs/Symptoms of Drug Intoxication Withdrawal: No Any prior treatment program specific to substance use: Yes ([facility]) Have you been hit, kicked, punched, or otherwise hurt by someone within the past year? If so, by whom?: No Do you feel safe in your current relationship?: No Current Relationship Is there a partner from a previous relationship who is making you feel unsafe now?: No Are you made to feel afraid or neglected: No Advance Directives: Yes Advance Directives on File: Yes Advance Directives Date on File: 01/11/22 Do you have a plan to hurt others: No Plan Recently lost weight without trying: No Eating poorly because of decreased appetite: No Nutrition Risks: No Nutritional Risk Patient : No : No Poor oral hygiene: No service: No Current occupational status: unemployed Meds Allergies Allergy/AdvReac Type Severity Reaction Status Date / Time No Known Allergies Allergy Verified 02/28/24 13:24 Active Medications: Current Medications Acetaminophen (Acetaminophen 325 Mg Tablet) 650 mg PO Q6H PRN PRN Reason: Pain, Mild (Pain Scale 1-3), fever or headache Amlodipine Besylate (Amlodipine Besylate 2.5 Mg Tablet) 7.5 mg PO DAILY [facility]; Protocol Last Admin: 02/29/24 07:55 Dose: 7.5 mg Calcium Carbonate (Calcium Carbonate 750 Mg Tab.Chew) 750 mg PO Q4H PRN PRN Reason: Heartburn Docusate Sodium (Docusate Sodium 100 Mg Capsule) 100 mg PO BID [facility] Last Admin: 02/29/24 07:55 Dose: 100 mg Glucose (Glucose Gel 15 Gm Gel..Gram.) 15 gm PO Q15M PRN; Protocol PRN Reason: per Hypoglycemia Standing Ord. Dextrose (D10) 250 mls @ 750 mls/hr IV Q15M PRN; Protocol PRN Reason: per Hypoglycemia Standing Ord. Cefazolin Sodium/Dextrose (Ancef) 2 gm in 50 mls @ 100 mls/hr IV Q8H [facility] Last Infusion: 02/29/24 02:44 Dose: Infused Insulin Glargine (Insulin Glargine,Hum.Rec.Anlog 100 Unit/Ml 10 Ml Vial) 20 unit SUBCUT DAILY [facility] Last Admin: 02/29/24 07:56 Dose: 20 unit Insulin Human Lispro (Insulin Lispro 100 Unit/Ml 3 Ml Vial) 0 unit SUBCUT QIDACHS [facility]; Protocol Last Admin: 02/29/24 07:57 Dose: 6 unit Lisinopril (Lisinopril 5 Mg Tablet) 5 mg PO DAILY [facility]; Protocol Last Admin: 02/29/24 07:55 Dose: 5 mg Melatonin (Melatonin 3 Mg Tablet) 6 mg PO BEDTIME PRN PRN Reason: Insomnia Methadone HCl (Methadone Hcl 20 Mg/2 Ml Oral.Conc) 75 mg PO DAILY [facility] Last Admin: 02/29/24 07:56 Dose: 75 mg Oxycodone HCl (Oxycodone Hcl Immed Release 5 Mg Tablet) 5 mg PO Q6H PRN PRN Reason: Pain, Severe (Pain Scale 7-10) Polyethylene Glycol (Polyethylene Glycol 3350 17 Gm Powd.Pack) 17 gm PO DAILY PRN PRN Reason: Constipation Last Admin: 02/28/24 19:48 Dose: 17 gm Potassium Chloride (Potassium Chloride Er 20 Meq Tab.Er.Prt) 20 meq PO DAILY [facility] Last Admin: 02/29/24 07:55 Dose: 20 meq Sodium Chloride (0.9 % Sodium Chloride Flush 3 Ml Syringe) 3 ml IVFLUSH QSHIFT [facility] Last Admin: 02/29/24 08:02 Dose: 3 ml Physical Exam Vital Signs: Vital Signs: Last Vital Signs Temp 98.2 F 02/29/24 06:59 Pulse 83 02/29/24 06:59 Resp 18 02/29/24 06:59 BP 158/76 H 02/29/24 06:59 Pulse Ox 97 02/29/24 06:59 O2 Del Method Room Air 02/29/24 06:59 O2 Flow Rate 97 02/29/24 06:59 BMI result Body Mass Index 42.4 Const: General: cooperative and no acute distress Nutritional Appearance: well nourished Orientation/consciousness: patient oriented x3 Limitations: no limitations HEENT: Head: Yes normocephalic and Yes atraumatic Ears: hearing grossly normal bilaterally Resp: Effort & Inspection: normal respiratory effort, no audible wheezes, no cough and no respiratory distress Cardio: Jugular venous distension: no JVD GI: Inspection: Yes normal to inspection Back/Spine/Pelvis: Other: Left buttock wound open and draining with large amount of cloudy discharge. Minimal erythema appreciated. Minimal tenderness to palpation. Overall wounds are much improved. Skin: Other: Warm, dry, no rash Neuro: General: patient oriented x3 Extrem: General: Yes no clubbing, cyanosis or edema Results Labs 02/28/24 15:06 02/28/24 15:06 Labs: Abnormal lab results 02/28/24 02/28/24 02/28/24 Range/Units 15:06 15:11 17:55 WBC 12.4 H (4.8-10.8) X10*3/uL RBC 4.03 L (4.20-5.50) X10*6/uL Hgb 10.0 L (12.0-16.0) g/dl Hct 32.1 L (37.0-47.0) % MCV 79.7 L (80.0-98.0) fL MCH 24.8 L (27.0-33.0) pg Plt Count 424 H (160-400) X10*3/uL MPV 8.3 L (9.4-12.3) fL Immature Gran % (Auto) 2.8 H (0.0-0.4) % Abs Immat Gran (auto) 0.35 H (0.00-0.03) X10*3/uL VBG pH 7.47 H (7.32-7.43) VBG HCO3 35 H (22-26) mmol/L Sodium 133 L (135-145) mmol/L Potassium 3.0 L (3.3-5.1) mmol/L Chloride 94 L (96-108) mmol/L Carbon Dioxide 30 H (22-29) mmol/L BUN 4 L (9-16) mg/dL POC Glucose (60-115) mg/dL Random Glucose 346 H (60-115) mg/dL Lactic Acid 2.1 H* (0.5-2.0) mmol/L Albumin 3.2 L (3.5-5.0) g/dL Urine Opiates Screen POSITIVE H (Not Detect) Urine Methadone Screen Positive H (Not Detect) ng/mL Urine Fentanyl Screen POSITIVE H (Not Detect) U Marijuana (THC) Screen POSITIVE H (Not Detect) 02/28/24 02/28/24 02/29/24 Range/Units 18:33 20:18 07:05 WBC (4.8-10.8) X10*3/uL RBC (4.20-5.50) X10*6/uL Hgb (12.0-16.0) g/dl Hct (37.0-47.0) % MCV (80.0-98.0) fL MCH (27.0-33.0) pg Plt Count (160-400) X10*3/uL MPV (9.4-12.3) fL Immature Gran % (Auto) (0.0-0.4) % Abs Immat Gran (auto) (0.00-0.03) X10*3/uL VBG pH (7.32-7.43) VBG HCO3 (22-26) mmol/L Sodium (135-145) mmol/L Potassium (3.3-5.1) mmol/L Chloride (96-108) mmol/L Carbon Dioxide (22-29) mmol/L BUN (9-16) mg/dL POC Glucose 196 H 265 H 298 H (60-115) mg/dL Random Glucose (60-115) mg/dL Lactic Acid (0.5-2.0) mmol/L Albumin (3.5-5.0) g/dL Urine Opiates Screen (Not Detect) Urine Methadone Screen (Not Detect) ng/mL Urine Fentanyl Screen (Not Detect) U Marijuana (THC) Screen (Not Detect) Short CBC 02/28/24 Range/Units 15:06 WBC 12.4 H (4.8-10.8) X10*3/uL Hgb 10.0 L (12.0-16.0) g/dl Hct 32.1 L (37.0-47.0) % Plt Count 424 H (160-400) X10*3/uL BMP 02/28/24 15:06 Sodium 133 L Potassium 3.0 L Chloride 94 L Carbon Dioxide 30 H BUN 4 L Creatinine 0.80 Calcium 8.4 Liver Function 02/28/24 Range/Units 15:06 Total Bilirubin 0.3 (0.0-1.0) mg/dL Direct Bilirubin 0.1 (0.0-0.5) mg/dL AST 12 (5-31) U/L ALT 7 (0-31) U/L Alkaline Phosphatase 79 (39-117) U/L Albumin 3.2 L (3.5-5.0) g/dL All other labs normal. Assessment and Plan (1) Abscess of buttock, left: Status: Acute Plan Continue local wound care to left buttock wound with dry sterile dressings and IV antibiotic. We will continue to monitor during her hospitalization. Procedures Date of Service Date of Service: 02/29/24
--- NOTE | 2024-02-29 09:11 | MHC.CM.PN ---
Addendum entered by Gale Thompson RN 02/29/24 11:47: This CM spoke w/ Jessica @ [facility]. DALIA's signed and sent back to [facility]. She will coordinate / [facility] for guest dosing. Anticipate dc on 03/03, guest dosing to start 03/04. Addendum entered by Gale Thompson RN 02/29/24 10:19: Patient accepted by [facility]. CM LM for Jessica Donaldson, patient's counselor at [facility], to set up guest dosing w/ [facility]. Jessica phone # [phone]. Per MD rounds patient will not have line placed until at least Sunday. CM will continue to follow for dc needs. Original Note: Patient lives in a home w/ adult daughter. Functionally independent. Methadone through [facility]. No PCP. G physician brochure provided. HCP on file and verified. Patient was dc'd from [facility] to [facility] on 02/25 for 4 wks IV abx. Patient left [facility] AMA and reports they were not providing care. DP: Patient will need line and SNF placement. Open to [facility] facilities. Referrals placed in [facility]. CM will continue to follow.
[2024-02-29 10:01] LABS: Anion Gap 16 (12-20); Blood Urea Nitrogen 4 mg/dL (9-16); Calcium 8.3 mg/dL (8.4-10.2); Carbon Dioxide 25 mmol/L (22-29); Chloride 96 mmol/L (96-108); Creatinine Clr Calc Pharmacy 124.3; Estimated Glomerular Filt Rate > 60; Glucose Random 375 mg/dL (60-115); Potassium 3.9 mmol/L (3.3-5.1); Sodium 133 mmol/L (135-145)
--- NOTE | 2024-02-29 10:52 | HO.WOUND ---
Wound Consult: Initial 38yr old?female admitted to [facility] on 02/28/24 - See progress notes and H&P for detailed history.? Recent admission and d/c to facility. Wound consult follow up for Left upper arm wound secondary to IV drug injection site and left buttock wound s/p I&D from last admission.? Patient agreeable to assessment and photo documentation - patient is known to this screenplay writer from previous admissions. We discussed d/c to home when appropriate and reports she has access to a shower and supplies for the left arm and buttock. She is aware of [facility] services and understands she can continue to seek their help for wound care needs and assessment for continued healing of the left arm. The perianal area was assessed and would benefit from packing however the general surgery team was following the patient lasta dmission and has been consulted this admission as well - I will defer topical management to the general surgery team and should topical recommendations be needed I will outline them below. ?Left Upper Arm previous assessment 11/28/23 Left Arm 02/25/24 Left Arm 02/29/24 Etiology: Ulceration - secondary to IVDU Injection site Measurements: 1.5cm x 1.5cm x 0.1cm Wound Bed: Dried scabbed wound bed Drainage / Odor: none noted Edges: ? irregular and adherent Anna wound: [place] scar tissue with irregular healing formation - No Induration, Fluctuance noted Pain: Denies at the time of my assessment Goals of Treatment: ? Hydrocolloid to protect from picking and allow for moist wound healing - hydrocolloid dressings may stay in place for up to 7 days. I recommend change every 3-4 days for this patient. Left Buttock Left Buttock Drainage Etiology: S/P I&D site secondary to abscess formation Measurements: 1cm x 0.2cm x 2cm suspect greater depth however pt was not able to tolerate probing Wound Bed: fibrinous slough noted Drainage / Odor: sero-creamy holley drainage -Moderate to high amount noted Edges: ? unattached Anna wound: pink erythema and induration noted - per MD note improved Pain: reports pain Goals of Treatment: Defer to General surgery team - Wound recommend packing to aid in debridement as follows Left buttock - Cleanse and irrigate with NS. Apply skin prep to periwound. Lightly pack wound with plain packing strip 1/4 in be sure to leave a wick for easy and full removal. Cover with dry gauze, ABD pad and secure with tape. Change daily. Recommendations: 1. Turn and Reposition every 2 hours and as needed for patient comfort.? Use pillows or wedges to support off loading positions. 2. Off Load all bony prominences with use of pillows and heel boots if needed.? Apply Preventative foams where needed. ? 3. Provide adequate and supplemental nutrition - Nutrition following.? 4. Maintain blood glucose levels per Providers order. 5. Left Upper Arm - Cleanse with cleanser such as NS. Pat dry. Apply skin prep to periwound, cover wound bed with Hydrocolloid, change every 3/4 days. Re-consult wound care Nurse for wound deterioration or wound changes.
[2024-02-29 11:24] LABS: Glucose, Whole Blood 312 mg/dL (60-115)
--- NOTE | 2024-02-29 14:10 | HO.PM.IMPN ---
Subjective Subjective Date of Service: 02/29/24 Interval History: Seen and examined this morning Follow-up for bacteremia, buttock wound Denies fever, chills Review of Systems Review of Systems: Yes all other systems are reviewed and are negative Constitutional Constitutional: Denies chills and Denies fever(s) Gastrointestinal Gastrointestinal: Denies abdominal pain, Denies nausea and Denies vomiting Physical Exam Vital Signs: Vital Signs: Last Vital Signs Temp 98.2 F 02/29/24 06:59 Pulse 83 02/29/24 06:59 Resp 18 02/29/24 06:59 BP 158/76 H 02/29/24 06:59 Pulse Ox 97 02/29/24 06:59 O2 Del Method Room Air 02/29/24 06:59 O2 Flow Rate 97 02/29/24 06:59 BMI result Body Mass Index 42.4 Const: General: cooperative, no acute distress, alert and awake Nutritional Appearance: obese Orientation/consciousness: patient oriented x3 Resp: Effort & Inspection: normal respiratory effort, able to speak in complete sentences, no respiratory distress and no use of accessory muscles Auscultation: clear to auscultation bilaterally Cardio: Rate: regular rate GI: Inspection: No distended Palpation (GI): Soft to palpation and nontender Skin: Other: left biceps chronic wound with scarring, no surrounding erythema; does not appear infected left buttock wound dresding in place Neuro: General: patient oriented x3, moves all extremities and CN's II-XI intact bilaterally Extrem: General: Yes no pedal edema Objective Data Active Medications Acetaminophen (Acetaminophen 325 Mg Tablet) 650 mg PO Q6H PRN PRN Reason: Pain, Mild (Pain Scale 1-3), fever or headache Amlodipine Besylate (Amlodipine Besylate 2.5 Mg Tablet) 7.5 mg PO DAILY [facility]; Protocol Last Admin: 02/29/24 07:55 Dose: 7.5 mg Documented By: BARRY Calcium Carbonate (Calcium Carbonate 750 Mg Tab.Chew) 750 mg PO Q4H PRN PRN Reason: Heartburn Docusate Sodium (Docusate Sodium 100 Mg Capsule) 100 mg PO BID [facility] Last Admin: 02/29/24 07:55 Dose: 100 mg Documented By: BARRY Glucose (Glucose Gel 15 Gm Gel..Gram.) 15 gm PO Q15M PRN; Protocol PRN Reason: per Hypoglycemia Standing Ord. Dextrose (D10) 250 mls @ 750 mls/hr IV Q15M PRN; Protocol PRN Reason: per Hypoglycemia Standing Ord. Cefazolin Sodium/Dextrose (Ancef) 2 gm in 50 mls @ 100 mls/hr IV Q8H [facility] Last Infusion: 02/29/24 10:51 Dose: Infused Documented By: BARRY Insulin Glargine (Insulin Glargine,Hum.Rec.Anlog 100 Unit/Ml 10 Ml Vial) 20 unit SUBCUT DAILY [facility] Last Admin: 02/29/24 07:56 Dose: 20 unit Documented By: BARRY Insulin Human Lispro (Insulin Lispro 100 Unit/Ml 3 Ml Vial) 0 unit SUBCUT QIDACHS [facility]; Protocol Last Admin: 02/29/24 11:51 Dose: 8 unit Documented By: BARRY Lisinopril (Lisinopril 5 Mg Tablet) 5 mg PO DAILY [facility]; Protocol Last Admin: 02/29/24 07:55 Dose: 5 mg Documented By: BARRY Melatonin (Melatonin 3 Mg Tablet) 6 mg PO BEDTIME PRN PRN Reason: Insomnia Methadone HCl (Methadone Hcl 20 Mg/2 Ml Oral.Conc) 85 mg PO DAILY [facility] Morphine Sulfate (Morphine Sulfate 2 Mg/Ml Cartridge) 2 mg IVPUSH Q3H PRN; Protocol PRN Reason: Pain, Severe (Pain Scale 7-10) Oxycodone HCl (Oxycodone Hcl Immed Release 5 Mg Tablet) 5 mg PO Q6H PRN PRN Reason: Pain, Moderate(Pain Scale 4-6) Polyethylene Glycol (Polyethylene Glycol 3350 17 Gm Powd.Pack) 17 gm PO DAILY PRN PRN Reason: Constipation Last Admin: 02/28/24 19:48 Dose: 17 gm Documented By: GERRI Potassium Chloride (Potassium Chloride Er 20 Meq Tab.Er.Prt) 20 meq PO DAILY [facility] Last Admin: 02/29/24 07:55 Dose: 20 meq Documented By: BARRY Sodium Chloride (0.9 % Sodium Chloride Flush 3 Ml Syringe) 3 ml IVFLUSH QSHIFT [facility] Last Admin: 02/29/24 08:02 Dose: 3 ml Documented By: BARRY Labs 02/28/24 15:06 02/29/24 09:02 Labs: Laboratory Results - last 24 hr 06/27/24 06/27/24 06/27/24 15:06 15:11 17:55 MCV 79.7 L MCH 24.8 L MCHC 31.2 RDW 15.1 Plt Count 424 H MPV 8.3 L Immature Gran % (Auto) 2.8 H Neut % (Auto) 57.7 Lymph % (Auto) 28.7 Hand % (Auto) 9.4 Eos % (Auto) 1.1 Baso % (Auto) 0.3 Lymph # (Auto) 3.6 Hand # (Auto) 1.2 Eos # (Auto) 0.1 Baso # (Auto) 0.0 Abs Immat Gran (auto) 0.35 H Absolute Neuts (auto) 7.2 Absolute Nucleated RBC 0.000 Nucleated RBC % (auto) 0.0 Hold Purple Top VBG pH 7.47 H VBG pCO2 48 VBG pO2 39 VBG HCO3 35 H VBG O2 Saturation 61.0 VBG Base Excess 10.5 Anion Gap 12 Estim Creat Clear Calc 135.2 Estimated GFR > 60 POC Glucose Random Glucose 346 H Lactic Acid 2.1 H* Lactic Acid F/U @ 2Hr Calcium 8.4 Magnesium 1.6 Total Bilirubin 0.3 Direct Bilirubin 0.1 AST 12 ALT 7 Alkaline Phosphatase 79 Total Protein 7.9 Albumin 3.2 L Lipase 12 Procalcitonin 0.03 Hold Yellow Top Urine Opiates Screen POSITIVE H Ur Buprenorphine Scrn Not Detected Ur Oxycodone Screen Not Detected Urine Methadone Screen Positive H Urine Fentanyl Screen POSITIVE H Ur Barbiturates Screen Not Detected Ur Phencyclidine Scrn Not Detected Ur Amphetamines Screen Not Detected U Benzodiazepines Scrn Not Detected Urine Cocaine Screen Not Detected U Marijuana (THC) Screen POSITIVE H 02/28/24 02/28/24 02/28/24 18:33 20:18 23:14 MCV MCH MCHC RDW Plt Count MPV Immature Gran % (Auto) Neut % (Auto) Lymph % (Auto) Hand % (Auto) Eos % (Auto) Baso % (Auto) Lymph # (Auto) Hand # (Auto) Eos # (Auto) Baso # (Auto) Abs Immat Gran (auto) Absolute Neuts (auto) Absolute Nucleated RBC Nucleated RBC % (auto) Hold Purple Top SEE NOTE VBG pH VBG pCO2 VBG pO2 VBG HCO3 VBG O2 Saturation VBG Base Excess Anion Gap Estim Creat Clear Calc Estimated GFR POC Glucose 196 H 265 H Random Glucose Lactic Acid Lactic Acid F/U @ 2Hr 2.0 Calcium Magnesium Total Bilirubin Direct Bilirubin AST ALT Alkaline Phosphatase Total Protein Albumin Lipase Procalcitonin Hold Yellow Top See Note Urine Opiates Screen Ur Buprenorphine Scrn Ur Oxycodone Screen Urine Methadone Screen Urine Fentanyl Screen Ur Barbiturates Screen Ur Phencyclidine Scrn Ur Amphetamines Screen U Benzodiazepines Scrn Urine Cocaine Screen U Marijuana (THC) Screen 02/29/24 02/29/24 02/29/24 07:05 09:02 11:20 MCV MCH MCHC RDW Plt Count MPV Immature Gran % (Auto) Neut % (Auto) Lymph % (Auto) Hand % (Auto) Eos % (Auto) Baso % (Auto) Lymph # (Auto) Hand # (Auto) Eos # (Auto) Baso # (Auto) Abs Immat Gran (auto) Absolute Neuts (auto) Absolute Nucleated RBC Nucleated RBC % (auto) Hold Purple Top VBG pH VBG pCO2 VBG pO2 VBG HCO3 VBG O2 Saturation VBG Base Excess Anion Gap 16 Estim Creat Clear Calc 124.3 Estimated GFR > 60 POC Glucose 298 H 312 H Random Glucose 375 H* Lactic Acid Lactic Acid F/U @ 2Hr Calcium 8.3 L Magnesium Total Bilirubin Direct Bilirubin AST ALT Alkaline Phosphatase Total Protein Albumin Lipase Procalcitonin Hold Yellow Top Urine Opiates Screen Ur Buprenorphine Scrn Ur Oxycodone Screen Urine Methadone Screen Urine Fentanyl Screen Ur Barbiturates Screen Ur Phencyclidine Scrn Ur Amphetamines Screen U Benzodiazepines Scrn Urine Cocaine Screen U Marijuana (THC) Screen Assessment and Plan (1) MSSA bacteremia: Status: Acute (2) Acute hyperglycemia: Status: Acute (3) Acute hypokalemia: Status: Acute Plan This is a 38-year-old female with history of cyclical vomiting syndrome, uncontrolled diabetes, hypertension admitted to the ICU due to DKA Buttock cellulitis and abscess diagnosed on previous admission seen by surgery and underwent I&D 02/23/24 continues with copious drainage and induration Wound care nurse and surgery following, continue local wound care. MSSA bacteremia diagnosed on previous admission likely skin source was d/c on vancomycin but blood cultures were sensitive to PCN, will treat with IV cefazolin needs 4 weeks IV abx (end date 03/20/24), will need line placement when repeat cultures are negative Blood cultures pending Left arm wound Appears chronic, does not appear to be infected Wound care nurse following> see note for wound care Acute lactic acidosis Lactic acid 2.1 Does not meet sirs criteria. No sepsis Type 2 diabetes with hyperglycemia continue lantus, SSI, ADA diet Hypokalemia Improved continue baseline potassium supplementation Opiate use disorder On methadone at baseline Hypertension Continue lisinopril, Norvasc Chronic microcytic anemia Above transfusion threshold Follow up CBC Morbid obesity BMI 42.4 Weight loss encouraged DVT prophylaxis-heparin full code Requires ongoing inpatient stay in the hospital for IV antibiotics and management of left buttock wound and bacteremia Quality Stroke Does the patient have a stroke diagnosis?: No VTE Prior VTE?: No VTE Risk Level:: Medical - moderate - high VTE Device Contraindication: N/A - Device Ordered VTE Drug Contraindication: N/A - Med Ordered
[2024-02-29] MEDS: Heparin Sodium,Porcine 5,000 UNIT/ML VIAL 5000 UNIT SUBCUT (14:21)
--- NOTE | 2024-02-29 14:28 | P.EN_ITS ---
Event Note Date of Service: 02/29/24 Event Note: Addiction consult placed for patient who discahrged from [facility] earlier this week and returned Known to this check writer and ACS Chart reviewed--nothing notable related to substance use Plan: -methadone dose increased to 85mg daily as was previously planned prior to disch arge -re-eval sunday and increase to 95mg if patient is agreeable Time Spent With Patient Time: Total time managing care of this patient today ____ minutes.
--- NOTE | 2024-02-29 14:28 | PM.EVENT ---
Event Note Date of Service: 02/29/24 Event Note: Addiction consult placed for patient who discahrged from [facility] earlier this week and returned Known to this director underwriter sales and ACS Chart reviewed--nothing notable related to substance use Plan: -methadone dose increased to 85mg daily as was previously planned prior to discharge -re-eval sunday and increase to 95mg if patient is agreeable Time Spent With Patient Time: Total time managing care of this patient today ____ minutes.
[2024-02-29 15:22] VITALS: BP 157/80; PULSE 83; RESP 18; TEMP 36.6; O2SAT 98
[2024-02-29 16:27] LABS: Glucose, Whole Blood 275 mg/dL (60-115)
[2024-02-29 19:54] VITALS: BP 145/69; PULSE 90; RESP 16; TEMP 36; O2SAT 98
[2024-02-29 20:10] LABS: Glucose, Whole Blood 296 mg/dL (60-115)
[2024-03-01] MEDS: Heparin Sodium,Porcine 5,000 UNIT/ML VIAL 5000 UNIT SUBCUT ×2 (02:26→13:51)
[2024-03-01] MEDS: ceFAZolin Sodium/Dextrose,Iso 2 GM/50 ML PIGGYBACK IV ×3 (02:27→17:39)
[2024-03-01 03:33] VITALS: BP 151/73; PULSE 78; RESP 16; TEMP 36.4; O2SAT 98
[2024-03-01] MEDS: ondansetron HCL 4 MG/2 ML VIAL IVPUSH (06:20)
[2024-03-01 06:25] LABS: Hematocrit 34.1 % (37.0-47.0); Hemoglobin 10.8 g/dl (12.0-16.0); Mean Corpuscular HGB Conc 31.7 g/dl (31.0-35.0); Mean Corpuscular Hemoglobin 25.1 pg (27.0-33.0); Mean Corpuscular Volume 79.3 fL (80.0-98.0); Mean Platelet Volume 10.7 fL (9.4-12.3); Platelet Count 160 X10*3/uL (160-400); White Blood Count 8.2 X10*3/uL (4.8-10.8)
[2024-03-01 06:43] LABS: Anion Gap 14 (12-20); Blood Urea Nitrogen 4 mg/dL (9-16); Calcium 8.8 mg/dL (8.4-10.2); Carbon Dioxide 27 mmol/L (22-29); Chloride 97 mmol/L (96-108); Creatinine Clr Calc Pharmacy 135.2; Estimated Glomerular Filt Rate > 60; Glucose Random 343 mg/dL (60-115); Potassium 3.9 mmol/L (3.3-5.1); Sodium 134 mmol/L (135-145)
[2024-03-01 07:23] LABS: Glucose, Whole Blood 350 mg/dL (60-115)
[2024-03-01] MEDS: Insulin Lispro 100 UNIT/ML 3 ML VIAL SUBCUT ×4 (07:51→21:32)
[2024-03-01 07:53] VITALS: BP 170/81; PULSE 80; TEMP 36; O2SAT 96
[2024-03-01] MEDS: amLODIPine Besylate 2.5 MG TABLET 7.5 MG PO (07:53)
[2024-03-01 07:54] VITALS: PULSE 77
[2024-03-01] MEDS: Docusate Sodium 100 MG CAPSULE PO ×2 (07:54→21:33)
[2024-03-01] MEDS: lisinopriL 5 MG TABLET PO (07:54)
[2024-03-01] MEDS: Insulin Glargine,Hum.rec.anlog 100 UNIT/ML 10 ML VIAL 20 UNIT SUBCUT (07:55)
[2024-03-01] MEDS: 0.9 % Sodium Chloride Flush 3 ML SYRINGE IVFLUSH ×3 (07:55→21:33)
[2024-03-01] MEDS: Potassium Chloride ER 20 MEQ TAB.ER.PRT PO (07:56)
[2024-03-01] MEDS: methADONE HCl 20 MG/2 ML ORAL.CONC 85 MG PO (08:03)
--- NOTE | 2024-03-01 08:35 | PC.NURSE ---
BP elevated 170/81 ,meds administered as ordered,ANIRUDH Hogan notified, pt asymptomatic,will monitor
[2024-03-01 11:40] LABS: Glucose, Whole Blood 346 mg/dL (60-115)
--- NOTE | 2024-03-01 13:11 | P.PNIM_ITS ---
Subjective Subjective Date of Service: 03/01/24 Interval History: Seen and examined this morning Follow-up for bacteremia, buttock abscess No overnight events No specific complaints this morning. Less drainage from buttock wound, pain less severe. Denies fever, chills Review of Systems Review of Systems: Yes all other systems are reviewed and are negative Constitutional Constitutional: Denies chills and Denies fever(s) Cardiovascular Cardiovascular: Denies chest pain, Denies palpitations and Denies dyspnea Respiratory Respiratory: Denies cough and Denies dyspnea Endocrine Endocrine: Denies palpitations Physical Exam 2 Vital Signs: Vital Signs: Last Vital Signs Temp 96.8 F 03/01/24 07:53 Pulse 77 03/01/24 07:54 Resp 16 03/01/24 03:33 BP 170/81 H 03/01/24 07:53 Pulse Ox 96 03/01/24 07:53 O2 Del Method Room Air 03/01/24 07:53 O2 Flow Rate 97 02/29/24 06:59 BMI result Body Mass Index 42.4 Const: General: cooperative, no acute distress, alert and awake Nutritional Appearance: obese Orientation/consciousness: patient oriented x3 Resp: Effort & Inspection: normal respiratory effort, able to speak in complete sentences, no respiratory distress and no use of accessory muscles A uscultation: clear to auscultation bilaterally Cardio: Rate: regular rate GI: Inspection: No distended Palpation (GI): Soft to palpation and nontender Skin: Other: left biceps chronic wound with scarring, no surrounding erythema; does not appear infected induration and erythema improving, less drainage Neuro: General: patient oriented x3, moves all extremities and CN's II-XI intact bilaterally Extrem: General: Yes no pedal edema Objective Data Active Medications Acetaminophen (Acetaminophen 325 Mg Tablet) 650 mg PO Q6H PRN PRN Reason: Pain, Mild (Pain Scale 1-3), fever or headache Amlodipine Besylate (Amlodipine Besylate 2.5 Mg Tablet) 7.5 mg PO DAILY [facility]; Protocol Last Admin: 03/01/24 07:53 Dose: 7.5 mg Documented By: RAMON Calcium Carbonate (Calcium Carbonate 750 Mg Tab.Chew) 750 mg PO Q4H PRN PRN Reason: Heartburn Docusate Sodium (Docusate Sodium 100 Mg Capsule) 100 mg PO BID [facility] Last Admin: 03/01/24 07:54 Dose: 100 mg Documented By: RAMON Glucose (Glucose Gel 15 Gm Gel..Gram.) 15 gm PO Q15M PRN; Protocol PRN Reason: per Hypoglycemia Standing Ord. Heparin Sodium (Porcine) (Heparin Sodium,Porcine 5,000 Unit/Ml Vial) 5,000 unit SUBCUT Q12H [facility] Last Admin: 03/01/24 02:26 Dose: 5,000 unit Documented By: GERRI Dextrose (D10) 250 mls @ 750 mls/hr IV Q15M PRN; Protocol PRN Reason: per Hypoglycemia Standing Ord. Cefazolin Sodium/Dextrose (Ancef) 2 gm in 50 mls @ 100 mls/hr IV Q8H [facility] Last Infusion: 03/01/24 10:42 Dose: Infused Documented By: RAMON Insulin Glargine (Insulin Glargine,Hum.Rec.Anlog 100 Unit/Ml 10 Ml Vial) 20 unit SUBCUT DAILY [facility] Last Admin: 03/01/24 07:55 Dose: 20 unit Documented By: RAMON Insulin Human Lispro (Insulin Lispro 100 Unit/Ml 3 Ml Vial) 0 unit SUBCUT QIDACHS [facility]; Protocol Last Admin: 03/01/24 12:03 Dose: 8 unit Documented By: RAMON Lisinopril (Lisinopril 5 Mg Tablet) 5 mg PO DAILY [facility]; Protocol Last Admin: 03/01/24 07:54 Dose: 5 mg Documented By: RAMON Melatonin (Melatonin 3 Mg Tablet) 6 mg PO BEDTIME PRN PRN Reason: Insomnia Methadone HCl (Methadone Hcl 20 Mg/2 Ml Oral.Conc) 85 mg PO DAILY [facility] Last Admin: 03/01/24 08:03 Dose: 85 mg Documented By: RAMON Morphine Sulfate (Morphine Sulfate 2 Mg/Ml Cartridge) 2 mg IVPUSH Q3H PRN; Protocol PRN Reason: Pain, Severe (Pain Scale 7-10) Ondansetron HCl (Ondansetron Hcl 4 Mg/2 Ml Vial) 4 mg IVPUSH Q4H PRN PRN Reason: Nausea and Vomiting Last Admin: 03/01/24 06:20 Dose: 4 mg Documented By: GERRI Oxycodone HCl (Oxycodone Hcl Immed Release 5 Mg Tablet) 5 mg PO Q6H PRN PRN Reason: Pain, Moderate(Pain Scale 4-6) Polyethylene Glycol (Polyethylene Glycol 3350 17 Gm Powd.Pack) 17 gm PO DAILY PRN PRN Reason: Constipation Last Admin: 02/28/24 19:48 Dose: 17 gm Documented By: GERRI Potassium Chloride (Potassium Chloride Er 20 Meq Tab.Er.Prt) 20 meq PO DAILY [facility] Last Admin: 03/01/24 07:56 Dose: 20 meq Documented By: RAMON Sodium Chloride (0.9 % Sodium Chloride Flush 3 Ml Syringe) 3 ml IVFLUSH QSHIFT [facility] Last Admin: 03/01/24 07:55 Dose: 3 ml Documented By: RAMON Labs 03/01/24 06:06 03/01/24 06:06 Labs: Laboratory Results - last 24 hr 02/29/24 02/29/24 03/01/24 16:18 19:56 06:06 MCV 79.3 L MCH 25.1 L MCHC 31.7 RDW 15.0 Plt Count 160 D MPV 10.7 Absolute Nucleated RBC 0.000 Nucleated RBC % (auto) 0.0 Anion Gap 14 Estim Creat Clear Calc 135.2 Estimated GFR > 60 POC Glucose 275 H 296 H Random Glucose 343 H Calcium 8.8 D 03/01/24 03/01/24 07:16 11:20 MCV MCH MCHC RDW Plt Count MPV Absolute Nucleated RBC Nucleated RBC % (auto) Anion Gap Estim Creat Clear Calc Estimated GFR POC Glucose 350 H* 346 H Random Glucose Calcium Microbiology Microbiology Results: Microbiology 02/28/24 16:03 Blood Culture - Preliminary Blood - Venous No growth after 24 hours. 02/28/24 15:06 Blood Culture - Preliminary Blood - Venous No growth after 24 hours. Assessment and Plan (1) MSSA bacteremia: Status: Acute Plan This is a 38-year-old female with history of cyclical vomiting syndrome, uncontrolled diabetes, hypertension and recent admission for DKA, buttock abscess, discharged to [place] for long-term antibiotics on February 25 where she left [place] short time after arriving as she felt she was not getting appropriate medical care. She returned to the emergency department on February 27 for readmission management of buttock abscess and bacteremia. Buttock cellulitis and abscess diagnosed on previous admission white count resolved seen by surgery and underwent I&D 02/23/24 continues with copious drainage and induration Wound care nurse and surgery following, continue local wound care. No further I & D required MSSA bacteremia diagnosed on previous admission likely skin source was d/c on vancomycin but blood cultures were sensitive to PCN, will treat with IV cefazolin needs 4 weeks IV abx (end date 03/20/24), will need midline placement when repeat cultures are negative Blood cultures negative to date Midline ordered Left arm wound chronic, does not appear to be infected Wound care nurse following> see note for wound care recs and photographic documentation Acute lactic acidosis Lactic acid 2.1 Does not meet sirs criteria. No sepsis Type 2 diabetes with hyperglycemia continue lantus, SSI, ADA diet Hypokalemia Improved continue baseline potassium supplementation Opiate use disorder On methadone at baseline Addiction medicine team following, dose uptitrated Hypertension Continue lisinopril, Norvasc Chronic microcytic anemia Above transfusion threshold Follow up CBC Morbid obesity BMI 42.4 Weight loss encouraged DVT prophylaxis-heparin full code dispo - [facility] medically ready for discharge Requires ongoing inpatient stay in the hospital for IV antibiotics and management of left buttock wound and bacteremia, need for midline placement Quality Stroke Does the patient have a stroke diagnosis?: No VTE Prior VTE?: No VTE Risk Level:: Medical - moderate - high VTE Device Contraindication: N/A - Device Ordered VTE Drug Contraindication: N/A - Med Ordered
[2024-03-01 16:12] VITALS: BP 149/72; PULSE 81; RESP 15; TEMP 36.1; O2SAT 97
[2024-03-01 16:21] LABS: Glucose, Whole Blood 199 mg/dL (60-115)
[2024-03-01 19:54] VITALS: BP 144/82; PULSE 86; RESP 16; TEMP 37.1; O2SAT 95
[2024-03-01 19:59] LABS: Glucose, Whole Blood 251 mg/dL (60-115)
[2024-03-02] MEDS: Heparin Sodium,Porcine 5,000 UNIT/ML VIAL 5000 UNIT SUBCUT ×2 (02:13→12:07)
[2024-03-02] MEDS: ceFAZolin Sodium/Dextrose,Iso 2 GM/50 ML PIGGYBACK IV ×3 (02:14→17:57)
[2024-03-02 04:09] VITALS: BP 145/79; PULSE 72; RESP 16; TEMP 36.2; O2SAT 95
[2024-03-02 07:29] LABS: Glucose, Whole Blood 245 mg/dL (60-115)
[2024-03-02 07:41] VITALS: BP 166/77; PULSE 77; RESP 12; TEMP 36.1; O2SAT 97
[2024-03-02] MEDS: amLODIPine Besylate 2.5 MG TABLET 7.5 MG PO (08:21)
[2024-03-02] MEDS: lisinopriL 5 MG TABLET PO (08:21)
[2024-03-02] MEDS: Docusate Sodium 100 MG CAPSULE PO ×2 (08:22→21:55)
[2024-03-02] MEDS: Insulin Glargine,Hum.rec.anlog 100 UNIT/ML 10 ML VIAL 25 UNIT SUBCUT (08:22)
[2024-03-02] MEDS: Potassium Chloride ER 20 MEQ TAB.ER.PRT PO (08:22)
[2024-03-02] MEDS: Insulin Lispro 100 UNIT/ML 3 ML VIAL SUBCUT ×4 (08:23→21:54)
[2024-03-02] MEDS: 0.9 % Sodium Chloride Flush 3 ML SYRINGE IVFLUSH ×2 (08:23→16:47)
[2024-03-02] MEDS: methADONE HCl 20 MG/2 ML ORAL.CONC 85 MG PO (08:24)
--- NOTE | 2024-03-02 10:09 | HO.PM.IMPN ---
Subjective Subjective Date of Service: 03/02/24 Interval History: F/u on MSSA bacteremia, buttock wound and abscess s/p I and D Physical Exam Vital Signs: Vital Signs: Last Vital Signs Temp 96.9 F 03/02/24 07:41 Pulse 77 03/02/24 07:41 Resp 12 03/02/24 07:41 BP 166/77 H 03/02/24 07:41 Pulse Ox 97 03/02/24 07:41 O2 Del Method Room Air 03/02/24 07:41 O2 Flow Rate 97 02/29/24 06:59 BMI result Body Mass Index 42.4 Const: General: cooperative, no acute distress, alert and awake Orientation/consciousness: patient oriented x3 Cardio: Jugular venous distension: no JVD Rate: regular rate GI: Inspection: Yes normal to inspection and No distended Palpation (GI): Soft to palpation and nontender Back/Spine/Pelvis: Other: Left buttock wound open and draining with large amount of cloudy discharge. Minimal erythema appreciated. Minimal tenderness to palpation. Overall wounds are much improved. Skin: Other: left biceps chronic wound with scarring, no surrounding erythema; does not appear infected induration and erythema improving, less drainage Neuro: General: patient oriented x3 Objective Data Active Medications Acetaminophen (Acetaminophen 325 Mg Tablet) 650 mg PO Q6H PRN PRN Reason: Pain, Mild (Pain Scale 1-3), fever or headache Amlodipine Besylate (Amlodipine Besylate 2.5 Mg Tablet) 7.5 mg PO DAILY [facility]; Protocol Last Admin: 03/02/24 08:21 Dose: 7.5 mg Documented By: RAMON Calcium Carbonate (Calcium Carbonate 750 Mg Tab.Chew) 750 mg PO Q4H PRN PRN Reason: Heartburn Docusate Sodium (Docusate Sodium 100 Mg Capsule) 100 mg PO BID [facility] Last Admin: 03/02/24 08:22 Dose: 100 mg Documented By: RAOMN Glucose (Glucose Gel 15 Gm Gel..Gram.) 15 gm PO Q15M PRN; Protocol PRN Reason: per Hypoglycemia Standing Ord. Heparin Sodium (Porcine) (Heparin Sodium,Porcine 5,000 Unit/Ml Vial) 5,000 unit SUBCUT Q12H [facility] Last Admin: 03/02/24 02:13 Dose: 5,000 unit Documented By: GERRI Dextrose (D10) 250 mls @ 750 mls/hr IV Q15M PRN; Protocol PRN Reason: per Hypoglycemia Standing Ord. Cefazolin Sodium/Dextrose (Ancef) 2 gm in 50 mls @ 100 mls/hr IV Q8H [facility] Last Infusion: 03/02/24 02:47 Dose: Infused Documented By: DEEPTI Insulin Glargine (Insulin Glargine,Hum.Rec.Anlog 100 Unit/Ml 10 Ml Vial) 25 unit SUBCUT DAILY [facility] Last Admin: 03/02/24 08:22 Dose: 25 unit Documented By: RAMON Insulin Human Lispro (Insulin Lispro 100 Unit/Ml 3 Ml Vial) 0 unit SUBCUT QIDACHS [facility]; Protocol Last Admin: 03/02/24 08:23 Dose: 4 unit Documented By: RAMON Lisinopril (Lisinopril 5 Mg Tablet) 5 mg PO DAILY [facility]; Protocol Last Admin: 03/02/24 08:21 Dose: 5 mg Documented By: RAMON Melatonin (Melatonin 3 Mg Tablet) 6 mg PO BEDTIME PRN PRN Reason: Insomnia Methadone HCl (Methadone Hcl 20 Mg/2 Ml Oral.Conc) 85 mg PO DAILY [facility] Last Admin: 03/02/24 08:24 Dose: 85 mg Documented By: RAMON Morphine Sulfate (Morphine Sulfate 2 Mg/Ml Cartridge) 2 mg IVPUSH Q3H PRN; Protocol PRN Reason: Pain, Severe (Pain Scale 7-10) Ondansetron HCl (Ondansetron Hcl 4 Mg/2 Ml Vial) 4 mg IVPUSH Q4H PRN PRN Reason: Nausea and Vomiting Last Admin: 03/01/24 06:20 Dose: 4 mg Documented By: GERRI Oxycodone HCl (Oxycodone Hcl Immed Release 5 Mg Tablet) 5 mg PO Q6H PRN PRN Reason: Pain, Moderate(Pain Scale 4-6) Polyethylene Glycol (Polyethylene Glycol 3350 17 Gm Powd.Pack) 17 gm PO DAILY PRN PRN Reason: Constipation Last Admin: 02/28/24 19:48 Dose: 17 gm Documented By: GERRI Potassium Chloride (Potassium Chloride Er 20 Meq Tab.Er.Prt) 20 meq PO DAILY [facility] Last Admin: 03/02/24 08:22 Dose: 20 meq Documented By: RAMON Sodium Chloride (0.9 % Sodium Chloride Flush 3 Ml Syringe) 3 ml IVFLUSH QSHIFT [facility] Last Admin: 03/02/24 08:23 Dose: 3 ml Documented By: RAMON Labs 03/01/24 06:06 03/01/24 06:06 Labs: Laboratory Results - last 24 hr 03/01/24 03/01/24 03/01/24 11:20 16:14 19:56 POC Glucose 346 H 199 H 251 H 03/02/24 07:18 POC Glucose 245 H Microbiology Microbiology Results: Microbiology 02/28/24 16:03 Blood Culture - Preliminary Blood - Venous No growth after 48 hours. 02/28/24 15:06 Blood Culture - Preliminary Blood - Venous No growth after 48 hours. Assessment and Plan (1) MSSA bacteremia: Status: Acute Plan 38-year-old female with history of cyclical vomiting syndrome, uncontrolled diabetes, hypertension and recent admission for DKA, buttock abscess, discharged to [place] for long-term antibiotics on February 25 where she left [place] shortly after arriving as she felt she was not getting appropriate medical care. She returned to the emergency department on February 27 for readmission management of buttock abscess and bacteremia. Buttock cellulitis and abscess diagnosed on previous admission white count resolved seen by surgery and underwent I&D 02/23/24 continues with copious drainage and induration Wound care nurse and surgery following, continue local wound care. No further I & D required MSSA bacteremia diagnosed on previous admission likely skin source was d/c on vancomycin but blood cultures were sensitive to PCN, will treat with IV cefazolin needs 4 weeks IV abx (end date 03/20/24), will need midline placement when repeat cultures are negative Blood cultures negative to date Midline ordered Left arm wound chronic, does not appear to be infected Wound care nurse following> see note for wound care recs and photographic documentation Acute lactic acidosis Lactic acid 2.1 Does not meet sirs criteria. No sepsis Type 2 diabetes with hyperglycemia continue lantus, increase Lantus for better control, SSI, ADA diet Hypokalemia, resolved. Opiate use disorder On methadone at baseline Addiction medicine team following, dose uptitrated Hypertension Continue lisinopril, Norvasc Chronic microcytic anemia Above transfusion threshold Follow up CBC Morbid obesity BMI 42.4 Weight loss encouraged DVT prophylaxis-heparin full code dispo - [facility] medically [facility] for [facility] Requires ongoing inpatient stay in the hospital for IV antibiotics and management of left buttock wound and bacteremia, need for midline placement Quality Stroke Does the patient have a stroke diagnosis?: No VTE Prior VTE?: No VTE Risk Level:: Medical - moderate - high VTE Device Contraindication: N/A - Device Ordered VTE Drug Contraindication: N/A - Med Ordered
[2024-03-02 11:26] LABS: Glucose, Whole Blood 299 mg/dL (60-115)
[2024-03-02 15:43] VITALS: BP 121/61; PULSE 76; RESP 18; TEMP 36.9; O2SAT 99
[2024-03-02 16:44] LABS: Glucose, Whole Blood 265 mg/dL (60-115)
[2024-03-02 20:08] LABS: Glucose, Whole Blood 265 mg/dL (60-115)
[2024-03-02 23:36] VITALS: BP 126/78; PULSE 89; RESP 18; TEMP 36.7; O2SAT 98
[2024-03-03] MEDS: 0.9 % Sodium Chloride Flush 3 ML SYRINGE IVFLUSH ×4 (00:04→22:40)
[2024-03-03] MEDS: ceFAZolin Sodium/Dextrose,Iso 2 GM/50 ML PIGGYBACK IV ×3 (02:42→17:02)
[2024-03-03] MEDS: Heparin Sodium,Porcine 5,000 UNIT/ML VIAL 5000 UNIT SUBCUT ×2 (02:43→14:49)
[2024-03-03 07:28] VITALS: BP 142/90; PULSE 84; RESP 14; TEMP 36.6; O2SAT 97
[2024-03-03 07:56] LABS: Glucose, Whole Blood 244 mg/dL (60-115)
[2024-03-03] MEDS: Potassium Chloride ER 20 MEQ TAB.ER.PRT PO (08:18)
[2024-03-03] MEDS: lisinopriL 5 MG TABLET PO (08:18)
[2024-03-03] MEDS: Docusate Sodium 100 MG CAPSULE PO ×2 (08:18→21:17)
[2024-03-03] MEDS: amLODIPine Besylate 2.5 MG TABLET 7.5 MG PO (08:19)
[2024-03-03] MEDS: Insulin Glargine,Hum.rec.anlog 100 UNIT/ML 10 ML VIAL 25 UNIT SUBCUT (08:21)
[2024-03-03] MEDS: Insulin Lispro 100 UNIT/ML 3 ML VIAL SUBCUT ×4 (08:21→21:26)
[2024-03-03] MEDS: methADONE HCl 20 MG/2 ML ORAL.CONC 85 MG PO (08:22)
--- NOTE | 2024-03-03 09:07 | P.PNIM_ITS ---
Subjective Subjective Date of Service: 03/03/24 Interval History: F/u on MSSA bacteremia, buttock wound and abscess s/p I and D Physical Exam 2 Vital Signs: Vital Signs: Last Vital Signs Temp 97.8 F 03/03/24 07:28 Pulse 84 03/03/24 07:28 Resp 14 03/03/24 07:28 BP 142/90 H 03/03/24 07:28 Pulse Ox 97 03/03/24 07:28 O2 Del Method Room Air 03/03/24 07:28 O2 Flow Rate 97 02/29/24 06:59 BMI result Body Mass Index 42.4 Appearing in no acute distress lung sounds are clear to auscultation heart regular rate rhythm, clear S1, S2 positive bowel sounds, abdomen is soft, nontender neuro patient is alert x3, no focal deficits Objective Data Active Medications Acetaminophen (Acetaminophen 325 Mg Tablet) 650 mg PO Q6H PRN PRN Reason: Pain, Mild (Pain Scale 1-3), fever or headache Amlodipine Besylate (Amlodipine Besylate 2.5 Mg Tablet) 7.5 mg PO DAILY [facility]; Protocol Last Admin: 03/03/24 08:19 Dose: 7.5 mg Documented By: RAMON Calcium Carbonate (Calcium Carbonate 750 Mg Tab.Chew) 750 mg PO Q4H PRN PRN Reason: Heartburn Docusate Sodium (Docusate Sodium 100 Mg Capsule) 100 mg PO BID [facility] Last Admin: 03/03/24 08:18 Dose: 100 mg Documented By: RAMON Glucose (Glucose Gel 15 Gm Gel..Gram.) 15 gm PO Q15M PRN; Protocol PRN Reason: per Hypoglycemia Standing Ord. Heparin Sodium (Porcine) (Heparin Sodium,Porcine 5,000 Unit/Ml Vial) 5,000 unit SUBCUT Q12H [facility] Last Admin: 03/03/24 02:43 Dose: 5,000 unit Documented By: TAWNYA Dextrose (D10) 250 mls @ 750 mls/hr IV Q15M PRN; Protocol PRN Reason: per Hypoglycemia Standing Ord. Cefazolin Sodium/Dextrose (Ancef) 2 gm in 50 mls @ 100 mls/hr IV Q8H [facility] Last Infusion: 03/03/24 03:30 Dose: Infused Documented By: TAWNYA Insulin Glargine (Insulin Glargine,Hum.Rec.Anlog 100 Unit/Ml 10 Ml Vial) 25 unit SUBCUT DAILY [facility] Last Admin: 03/03/24 08:21 Dose: 25 unit Documented By: RAMON Insulin Human Lispro (Insulin Lispro 100 Unit/Ml 3 Ml Vial) 0 unit SUBCUT QIDACHS [facility]; Protocol Last Admin: 03/03/24 08:21 Dose: 4 unit Documented By: RAMON Lisinopril (Lisinopril 5 Mg Tablet) 5 mg PO DAILY [facility]; Protocol Last Admin: 03/03/24 08:18 Dose: 5 mg Documented By: RAMON Melatonin (Melatonin 3 Mg Tablet) 6 mg PO BEDTIME PRN PRN Reason: Insomnia Methadone HCl (Methadone Hcl 20 Mg/2 Ml Oral.Conc) 85 mg PO DAILY [facility] Last Admin: 03/03/24 08:22 Dose: 85 mg Documented By: RAMON Morphine Sulfate (Morphine Sulfate 2 Mg/Ml Cartridge) 2 mg IVPUSH Q3H PRN; Protocol PRN Reason: Pain, Severe (Pain Scale 7-10) Ondansetron HCl (Ondansetron Hcl 4 Mg/2 Ml Vial) 4 mg IVPUSH Q4H PRN PRN Reason: Nausea and Vomiting Last Admin: 03/01/24 06:20 Dose: 4 mg Documented By: GERRI Oxycodone HCl (Oxycodone Hcl Immed Release 5 Mg Tablet) 5 mg PO Q6H PRN PRN Reason: Pain, Moderate(Pain Scale 4-6) Polyethylene Glycol (Polyethylene Glycol 3350 17 Gm Powd.Pack) 17 gm PO DAILY PRN PRN Reason: Constipation Last Admin: 02/28/24 19:48 Dose: 17 gm Documented By: GERRI Potassium Chloride (Potassium Chloride Er 20 Meq Tab.Er.Prt) 20 meq PO DAILY [facility] Last Admin: 03/03/24 08:18 Dose: 20 meq Documented By: RAMON Sodium Chloride (0.9 % Sodium Chloride Flush 3 Ml Syringe) 3 ml IVFLUSH QSHIFT [facility] Last Admin: 03/03/24 08:22 Dose: 3 ml Documented By: RAMON Labs 03/01/24 06:06 03/01/24 06:06 Labs: Laboratory Results - last 24 hr 03/02/24 03/02/24 03/02/24 11:21 16:40 20:03 POC Glucose 299 H 265 H 265 H 03/03/24 07:25 POC Glucose 244 H Assessment and Plan (1) MSSA bacteremia: Status: Acute Plan 38-year-old female with history of cyclical vomiting syndrome, uncontrolled diabetes, hypertension and recent admission for DKA, buttock abscess, discharged to [place] for long-term antibiotics on February 25 where she left [place] shortly after arriving as she felt she was not getting appropriate medical care. She returned to the emergency department on February 27 for readmission management of buttock abscess and bacteremia. SI/self harm Care team consult for SI, Patient stated that if she had to leave the hospital she would intentionally overdose. She has a bed available in [place] and is refusing to leave the hospital Buttock cellulitis and abscess diagnosed on previous admission white count resolved seen by surgery and underwent I&D 02/23/24 continues with drainage and induration Wound care nurse and surgery following, continue local wound care. No further I & D required MSSA bacteremia diagnosed on previous admission likely skin source IV cefazolin needs 4 weeks IV abx (end date 03/20/24) Blood cultures negative to date Midline ordered Left arm wound chronic, does not appear to be infected Wound care nurse following> see note for wound care recs and photographic documentation Acute lactic acidosis Lactic acid 2.1 Does not meet sirs criteria. No sepsis Type 2 diabetes with hyperglycemia continue lantus, increase Lantus for better control, SSI, ADA diet Hypokalemia resolved. Opiate use disorder On methadone at baseline Addiction medicine team following, dose uptitrated Hypertension Continue lisinopril, Norvasc Chronic microcytic anemia Above transfusion threshold Follow up CBC Morbid obesity BMI 42.4 Weight loss encouraged DVT prophylaxis-heparin full code Attending Dr. Timo muniz - [facility] Requires ongoing inpatient stay in the hospital for IV antibiotics and management of left buttock wound and bacteremia, need for midline placement Quality Stroke Does the patient have a stroke diagnosis?: No VTE Prior VTE?: No VTE Risk Level:: Medical - moderate - high VTE Device Contraindication: N/A - Device Ordered VTE Drug Contraindication: N/A - Med Ordered
--- NOTE | 2024-03-03 09:17 | HO.MIDLINE_ITS ---
Midline Insertion MIDLINE INSERTION Diagnosis: Bacteremia Indication: 4 wks ABT Pertinent Labs: reviewed Technique: Using sterile technique including cap and mask, glove and drape, the right arm was prepped and draped in the usual sterile fashion of full barrier technique with CHG. Using ultrasound guidance, right basilic vein access was obtained . 4fr single lumen trimmable power midline catheter trimmed to 10cm was positioned. The procedure was performed in rm [id number]. Ultrasound was used to document vein patency and for needle entry. A formal ultrasound picture was recorded. Vascular Material Requirements Worker has released the line for use and it is currently dressed with a StatLock, Tegaderm, and CHG disc. Verification has been performed for blood return and line patency. Arm Circumference: 45cm Equipment: [employer] [facility] PowerMidline catheter Catheter Type: 4FR single lumen trimmable catheter Lot #: [id number]
[2024-03-03 11:47] LABS: Glucose, Whole Blood 343 mg/dL (60-115)
--- NOTE | 2024-03-03 14:56 | MHC.CM.PN ---
Per MD rounds patient was medically cleared w/ midline in place to dc to SNF for IV abx w/ stop date 03/20. This CM met with patient at bedside. Patient declining any SNF placement. Verbalizes understanding of the importance of the IV abx and understands that SNF options are limited d/t methadone. Patient reports to this CM that she would like to complete her IV abx in the hospital and if dc'd would intentionally overdose. CM reported to [employer]AL WORKER and RN @[phone]. Awaiting psych and crisis evals. Facility aware that dc is on hold. Additional documentation sent to [facility] for guest dosing per request. CM will continue to follow.
--- NOTE | 2024-03-03 15:25 | P.PNADD_ITS ---
Subjective Subjective Date of Service: 03/03/24 Reason For Visit: bacteremia, buttock abscess Interim History: Patient known to this advertising writer via previous (very recent admission) During that time methadone dose was being titrated back to outpatient dose Currently at 85mg daily Patient seen in room 385. Awake, alert. Lunch had just arrived so patient was preparing to eat She reports feeling good . She says she did not realize she was not at her previous dose. Would like to increase again as previous dose was beneficial in managing cravings in the community. Mental Status Exam Mental Status Exam Patient Appearance: Well Grooomed and Appropriate Level of Consciousness: Awake, Appropriate and Alert Diagnostics Vital Signs (24Hr): Vital Signs - 24 hr 03/02/24 15:43 03/02/24 23:36 03/03/24 07:28 Temperature 98.5 F 98.0 F 97.8 F Pulse Rate 76 89 84 Respiratory Rate 18 18 14 Blood Pressure 121/61 126/78 142/90 H Pulse Oximetry 99 98 97 Oxygen Delivery Method Room Air Room Air Room Air BMI result Body Mass Index 42.4 Labs 03/01/24 06:06 03/01/24 06:06 Labs: Laboratory Results - last 48 hr 03/01/24 03/01/24 03/02/24 16:14 19:56 07:18 POC Glucose 199 H 251 H 245 H 03/02/24 03/02/24 03/02/24 11:21 16:40 20:03 POC Glucose 299 H 265 H 265 H 03/03/24 03/03/24 07:25 11:37 POC Glucose 244 H 343 H Medications Medications Current Medications Acetaminophen (Acetaminophen 325 Mg Tablet) 650 mg PO Q6H PRN PRN Reason: Pain, Mild (Pain Scale 1-3), fever or headache Amlodipine Besylate (Amlodipine Besylate 2.5 Mg Tablet) 7.5 mg PO DAILY [facility]; Protocol Last Admin: 03/03/24 08:19 Dose: 7.5 mg Calcium Carbonate (Calcium Carbonate 750 Mg Tab.Chew) 750 mg PO Q4H PRN PRN Reason: Heartburn Docusate Sodium (Docusate Sodium 100 Mg Capsule) 100 mg PO BID [facility] Last Admin: 03/03/24 08:18 Dose: 100 mg Glucose (Glucose Gel 15 Gm Gel..Gram.) 15 gm PO Q15M PRN; Protocol PRN Reason: per Hypoglycemia Standing Ord. Heparin Sodium (Porcine) (Heparin Sodium,Porcine 5,000 Unit/Ml Vial) 5,000 unit SUBCUT Q12H [facility] Last Admin: 03/03/24 14:49 Dose: 5,000 unit Dextrose (D10) 250 mls @ 750 mls/hr IV Q15M PRN; Protocol PRN Reason: per Hypoglycemia Standing Ord. Cefazolin Sodium/Dextrose (Ancef) 2 gm in 50 mls @ 100 mls/hr IV Q8H [facility] Last Infusion: 03/03/24 12:34 Dose: Infused Insulin Glargine (Insulin Glargine,Hum.Rec.Anlog 100 Unit/Ml 10 Ml Vial) 25 unit SUBCUT DAILY [facility] Last Admin: 03/03/24 08:21 Dose: 25 unit Insulin Human Lispro (Insulin Lispro 100 Unit/Ml 3 Ml Vial) 0 unit SUBCUT QIDACHS [facility]; Protocol Last Admin: 03/03/24 11:56 Dose: 8 unit Lisinopril (Lisinopril 5 Mg Tablet) 5 mg PO DAILY [facility]; Protocol Last Admin: 03/03/24 08:18 Dose: 5 mg Melatonin (Melatonin 3 Mg Tablet) 6 mg PO BEDTIME PRN PRN Reason: Insomnia Methadone HCl (Methadone Hcl 20 Mg/2 Ml Oral.Conc) 85 mg PO DAILY [facility] Last Admin: 03/03/24 08:22 Dose: 85 mg Morphine Sulfate (Morphine Sulfate 2 Mg/Ml Cartridge) 2 mg IVPUSH Q3H PRN; Protocol PRN Reason: Pain, Severe (Pain Scale 7-10) Ondansetron HCl (Ondansetron Hcl 4 Mg/2 Ml Vial) 4 mg IVPUSH Q4H PRN PRN Reason: Nausea and Vomiting Last Admin: 03/01/24 06:20 Dose: 4 mg Oxycodone HCl (Oxycodone Hcl Immed Release 5 Mg Tablet) 5 mg PO Q6H PRN PRN Reason: Pain, Moderate(Pain Scale 4-6) Polyethylene Glycol (Polyethylene Glycol 3350 17 Gm Powd.Pack) 17 gm PO DAILY PRN PRN Reason: Constipation Last Admin: 02/28/24 19:48 Dose: 17 gm Potassium Chloride (Potassium Chloride Er 20 Meq Tab.Er.Prt) 20 meq PO DAILY [facility] Last Admin: 03/03/24 08:18 Dose: 20 meq Sodium Chloride (0.9 % Sodium Chloride Flush 3 Ml Syringe) 3 ml IVFLUSH QSHIFT [facility] Last Admin: 03/03/24 08:22 Dose: 3 ml Allergies Allergies Allergy/AdvReac Type Severity Reaction Status Date / Time No Known Allergies Allergy Verified 02/28/24 13:24 Assessment & Plan Assessment & Plan (1) Opioid use disorder: Status: Acute Code(s): F11.90 - Opioid use, unspecified, uncomplicated Assessment and Plan: * increase methadone to 95mg tomorrow morning * already connected to OTP in the community * no additional follow up required at this time Total time managing care of this patient today __15__ minutes.
--- NOTE | 2024-03-03 15:39 | P.CNPS_ITS ---
History of Present Illness Date of Service: t Chief Complaint: bacteremia, buttock abscess Reason for Consult: Depression, assessment of SI Requesting physician: Tameka Pizano Discussed with referring provider: Yes Sources of Information: patient interviewed, chart reviewed and crisis/core team assessment reviewed HPI Narrative: The patient is a 38-year-old female, single, mother of a young adult daughter, living with her daughter, with several financial constraints with a past history of opiate use disorder admitted for sepsis in the context of noncompliance with treatment with IV antibiotics. Apparently the patient was admitted into this facility a few days ago and she was transferred to a subacute rehab for continuation of treatment but she signed AMA and she came back in a worse condition. She was admitted into Medicine for IV antibiotic treatments. Also she recently admitted relapsed on opioids. The current consult was asked as to where the patient disclosed passive suicidal ideation if she would be discharged to her home. On the intake interview, the patient adamantly denies active suicidal ideation she was tearful and sad due to her several psychosocial stressors. She admitted depressed mood, anhedonia, lack of energy, feelings of hopelessness but no active suicidal ideation. She adamantly denies psychotic symptoms such as hallucinations or delusions. She also denies past history of hypomania or marisol and she is able to contract for safety. She feels overwhelmed with all the stressors and she is future oriented. We discussed at length risks, benefits, side-effects and alternatives and she agreed to start a low dose of Remeron. The patient does not want to take any benzodiazepines since it could be addictive and she already has a substance use disorder. She has good in side into her condition. Past Psychiatric History: She has never been admitted into Psychiatry she does not have outpatient providers at this moment. She was seen by addiction medicine a few days ago. Medical Evaluation Reviewed: Yes [facility] Medical History Sepsis PCOS (polycystic ovarian syndrome) Rash Polysubstance (excluding opioids) dependence, daily use Methadone maintenance therapy patient Anxiety and depression Diabetes Family History: The patient admitted substance abuse in her family. Social History: Single mother of a young adult daughter, financial constraints and several psychosocial stressors. Substance History: Past history of opiate use disorder Trauma History: She reported past trauma but refused to elaborate. Diagnostics Vital Signs (24Hr): Vital Signs - 24 hr 03/02/24 15:43 03/02/24 23:36 03/03/24 07:28 Temperature 98.5 F 98.0 F 97.8 F Pulse Rate 76 89 84 Respiratory Rate 18 18 14 Blood Pressure 121/61 126/78 142/90 H Pulse Oximetry 99 98 97 Oxygen Delivery Method Room Air Room Air Room Air BMI result Body Mass Index 42.4 Labs 03/01/24 06:06 03/01/24 06:06 Labs: Laboratory Results - last 48 hr 03/01/24 03/01/24 03/02/24 16:14 19:56 07:18 POC Glucose 199 H 251 H 245 H 03/02/24 03/02/24 03/02/24 11:21 16:40 20:03 POC Glucose 299 H 265 H 265 H 03/03/24 03/03/24 07:25 11:37 POC Glucose 244 H 343 H Mental Status Exam Mental Status Exam Patient Appearance: Appropriate (On hospital gowns) Patient Orientation: Person, Place and Situation Level of Consciousness: Awake and Appropriate Patient Behavior: Appropriate, Cooperative and Good Eye Contact Mood Description: Withdrawn and Depressed Affect Description: Constricted Patient Cognition Impaired: No Ability to Follow Directions: Good Speech Pattern: Clear Hallucinations: None Delusions: Not Present Thought Process: Goal Oriented and Linear Thought Content: positive for [employer] and positive for Poverty of Content Judgement: Fair Medications Medications Current Medications Acetaminophen (Acetaminophen 325 Mg Tablet) 650 mg PO Q6H PRN PRN Reason: Pain, Mild (Pain Scale 1-3), fever or headache Amlodipine Besylate (Amlodipine Besylate 2.5 Mg Tablet) 7.5 mg PO DAILY [facility]; Protocol Last Admin: 03/03/24 08:19 Dose: 7.5 mg Calcium Carbonate (Calcium Carbonate 750 Mg Tab.Chew) 750 mg PO Q4H PRN PRN Reason: Heartburn Docusate Sodium (Docusate Sodium 100 Mg Capsule) 100 mg PO BID [facility] Last Admin: 03/03/24 08:18 Dose: 100 mg Glucose (Glucose Gel 15 Gm Gel..Gram.) 15 gm PO Q15M PRN; Protocol PRN Reason: per Hypoglycemia Standing Ord. Heparin Sodium (Porcine) (Heparin Sodium,Porcine 5,000 Unit/Ml Vial) 5,000 unit SUBCUT Q12H [facility] Last Admin: 03/03/24 14:49 Dose: 5,000 unit Dextrose (D10) 250 mls @ 750 mls/hr IV Q15M PRN; Protocol PRN Reason: per Hypoglycemia Standing Ord. Cefazolin Sodium/Dextrose (Ancef) 2 gm in 50 mls @ 100 mls/hr IV Q8H [facility] Last Infusion: 03/03/24 12:34 Dose: Infused Insulin Glargine (Insulin Glargine,Hum.Rec.Anlog 100 Unit/Ml 10 Ml Vial) 25 unit SUBCUT DAILY [facility] Last Admin: 03/03/24 08:21 Dose: 25 unit Insulin Human Lispro (Insulin Lispro 100 Unit/Ml 3 Ml Vial) 0 unit SUBCUT QIDACHS [facility]; Protocol Last Admin: 03/03/24 11:56 Dose: 8 unit Lisinopril (Lisinopril 5 Mg Tablet) 5 mg PO DAILY [facility]; Protocol Last Admin: 03/03/24 08:18 Dose: 5 mg Melatonin (Melatonin 3 Mg Tablet) 6 mg PO BEDTIME PRN PRN Reason: Insomnia Methadone HCl (Methadone Hcl 20 Mg/2 Ml Oral.Conc) 95 mg PO DAILY [facility] Morphine Sulfate (Morphine Sulfate 2 Mg/Ml Cartridge) 2 mg IVPUSH Q3H PRN; Protocol PRN Reason: Pain, Severe (Pain Scale 7-10) Ondansetron HCl (Ondansetron Hcl 4 Mg/2 Ml Vial) 4 mg IVPUSH Q4H PRN PRN Reason: Nausea and Vomiting Last Admin: 03/01/24 06:20 Dose: 4 mg Oxycodone HCl (Oxycodone Hcl Immed Release 5 Mg Tablet) 5 mg PO Q6H PRN PRN Reason: Pain, Moderate(Pain Scale 4-6) Polyethylene Glycol (Polyethylene Glycol 3350 17 Gm Powd.Pack) 17 gm PO DAILY PRN PRN Reason: Constipation Last Admin: 02/28/24 19:48 Dose: 17 gm Potassium Chloride (Potassium Chloride Er 20 Meq Tab.Er.Prt) 20 meq PO DAILY [facility] Last Admin: 03/03/24 08:18 Dose: 20 meq Sodium Chloride (0.9 % Sodium Chloride Flush 3 Ml Syringe) 3 ml IVFLUSH QSHIFT [facility] Last Admin: 03/03/24 08:22 Dose: 3 ml Allergies Allergies Allergy/AdvReac Type Severity Reaction Status Date / Time No Known Allergies Allergy Verified 02/28/24 13:24 Assessment & Plan Assessment & Plan (1) Sepsis: Status: Acute Code(s): A41.9 - Sepsis, unspecified organism (2) Opioid use disorder: Status: Acute Code(s): F11.90 - Opioid use, unspecified, uncomplicated (3) Abscess of buttock, left: Status: Acute Code(s): L02.31 - Cutaneous abscess of buttock (4) Methadone maintenance therapy patient: Status: Acute Code(s): F11.20 - Opioid dependence, uncomplicated (5) Depression: Status: Acute Code(s): F32.A - Depression, unspecified Plan The patient is a young adult female with a past history of opiate use disorder, sepsis and an abscess in her back that requires IV antibiotics. The patient was readmitted after she signed herself AMA from the intermediate since she felt neglected. The current consult was asked his the patient verbalized passive suicidal thoughts. The patient does not have active suicidal ideation and she is able to contract for safety but she is extremely depressed, exhausted and overwhelmed with all her medical problems. We discussed at length treatment options and she agreed on a low dose of Remeron. Diagnosis Opiate use disorder. Substance induced mood disorder Sepsis Depressive disorder Plan 1. Start a low dose of Remeron 15 mg p.o. q.h.s. to target depression, anxiety and insomnia. 2. The patient will benefit of outpatient providers in the community for psychotherapy and medication management. 3. At this moment the patient does not have active suicidal ideation and she is able to continue outpatient services. 4. Reassessment as demand. Total time managing care of this patient today __30__ minutes. Patient educated on: diagnosis and therapeutic strategies Informed Consent: understands
[2024-03-03 16:00] VITALS: BP 141/76; PULSE 101; RESP 20; TEMP 36.4; O2SAT 98
--- NOTE | 2024-03-03 16:36 | W.PM.IDCN ---
History of Present Illness Data of Consult Service Date: 03/03/24 Requesting physician: Tameka Pizano Primary Care Provider: None Physician HPI Reason for consult: MSSA bacteremia 02/19 She presents after pulling out PICC line and leaving [facility] as reportedly wants to stay in the hospital instead for her four weeks IV antibiotics since she didnt get as much attention from staff at [facility] as here and people were yelling in hallway. Her blood cultures 02/19 MSSA and she was given Kefzol. Review of Systems Review of Systems: Yes all other systems are reviewed and are negative [facility] Past Medical History Medical History Sepsis PCOS (polycystic ovarian syndrome) Rash Polysubstance (excluding opioids) dependence, daily use Methadone maintenance therapy patient Anxiety and depression Diabetes Family History Family history: reviewed and not pertinent Social History Social History Household Members: Other Household Members Other:: daughter Housing: Apartment Do you presently have visiting nurse or other home services: No Alcohol intake: current Alcohol intake frequency: does not drink Patient Tobacco Use Status: Former Tobacco user Tobacco use type: Cigarette Cigarette Packs Per Day: 3 Cigarettes Per Day: 60.0 Years Smoked: 2 Smoked in Last 30 Days: No e-Cigarette/Vaping Use: Never Used Use of substances other than those prescribed or required for medical reasons: Yes Substance Use Type: Heroin and Marijuana Substance Use Frequency: Daily Last Used Substance: Days (ago) Currently Displaying Signs/Symptoms of Drug Intoxication Withdrawal: No Any prior treatment program specific to substance use: Yes ([facility]) Have you been hit, kicked, punched, or otherwise hurt by someone within the past year? If so, by whom?: No Do you feel safe in your current relationship?: No Current Relationship Is there a partner from a previous relationship who is making you feel unsafe now?: No Are you made to feel afraid or neglected: No Advance Directives: Yes Advance Directives on File: Yes Advance Directives Date on File: 01/11/22 Do you have a plan to hurt others: No Plan Recently lost weight without trying: No Eating poorly because of decreased appetite: No Nutrition Risks: No Nutritional Risk Patient : No : No Poor oral hygiene: No service: No Current occupational status: unemployed Meds Allergies Allergy/AdvReac Type Severity Reaction Status Date / Time No Known Allergies Allergy Verified 02/28/24 13:24 Active Medications: Current Medications Acetaminophen (Acetaminophen 325 Mg Tablet) 650 mg PO Q6H PRN PRN Reason: Pain, Mild (Pain Scale 1-3), fever or headache Amlodipine Besylate (Amlodipine Besylate 2.5 Mg Tablet) 7.5 mg PO DAILY [facility]; Protocol Last Admin: 03/03/24 08:19 Dose: 7.5 mg Calcium Carbonate (Calcium Carbonate 750 Mg Tab.Chew) 750 mg PO Q4H PRN PRN Reason: Heartburn Docusate Sodium (Docusate Sodium 100 Mg Capsule) 100 mg PO BID [facility] Last Admin: 03/03/24 08:18 Dose: 100 mg Glucose (Glucose Gel 15 Gm Gel..Gram.) 15 gm PO Q15M PRN; Protocol PRN Reason: per Hypoglycemia Standing Ord. Heparin Sodium (Porcine) (Heparin Sodium,Porcine 5,000 Unit/Ml Vial) 5,000 unit SUBCUT Q12H [facility] Last Admin: 03/03/24 14:49 Dose: 5,000 unit Dextrose (D10) 250 mls @ 750 mls/hr IV Q15M PRN; Protocol PRN Reason: per Hypoglycemia Standing Ord. Cefazolin Sodium/Dextrose (Ancef) 2 gm in 50 mls @ 100 mls/hr IV Q8H [facility] Last Infusion: 03/03/24 12:34 Dose: Infused Insulin Glargine (Insulin Glargine,Hum.Rec.Anlog 100 Unit/Ml 10 Ml Vial) 25 unit SUBCUT DAILY [facility] Last Admin: 03/03/24 08:21 Dose: 25 unit Insulin Human Lispro (Insulin Lispro 100 Unit/Ml 3 Ml Vial) 0 unit SUBCUT QIDACHS [facility]; Protocol Last Admin: 03/03/24 11:56 Dose: 8 unit Lisinopril (Lisinopril 5 Mg Tablet) 5 mg PO DAILY [facility]; Protocol Last Admin: 03/03/24 08:18 Dose: 5 mg Melatonin (Melatonin 3 Mg Tablet) 6 mg PO BEDTIME PRN PRN Reason: Insomnia Methadone HCl (Methadone Hcl 20 Mg/2 Ml Oral.Conc) 95 mg PO DAILY [facility] Mirtazapine (Mirtazapine 15 Mg Tablet) 15 mg PO BEDTIME [facility] Morphine Sulfate (Morphine Sulfate 2 Mg/Ml Cartridge) 2 mg IVPUSH Q3H PR[facility]; Protocol PRN Reason: Pain, Severe (Pain Scale 7-10) Ondansetron HCl (Ondansetron Hcl 4 Mg/2 Ml Vial) 4 mg IVPUSH Q4H PRN PRN Reason: Nausea and Vomiting Last Admin: 03/01/24 06:20 Dose: 4 mg Oxycodone HCl (Oxycodone Hcl Immed Release 5 Mg Tablet) 5 mg PO Q6H PRN PRN Reason: Pain, Moderate(Pain Scale 4-6) Polyethylene Glycol (Polyethylene Glycol 3350 17 Gm Powd.Pack) 17 gm PO DAILY PRN PRN Reason: Constipation Last Admin: 02/28/24 19:48 Dose: 17 gm Potassium Chloride (Potassium Chloride Er 20 Meq Tab.Er.Prt) 20 meq PO DAILY [facility] Last Admin: 03/03/24 08:18 Dose: 20 meq Sodium Chloride (0.9 % Sodium Chloride Flush 3 Ml Syringe) 3 ml IVFLUSH QSHIFT [facility] Last Admin: 03/03/24 08:22 Dose: 3 ml Physical Exam Vital Signs: Vital Signs: Last Vital Signs Temp 97.6 F 03/03/24 16:00 Pulse 101 H 03/03/24 16:00 Resp 20 03/03/24 16:00 BP 141/76 H 03/03/24 16:00 Pulse Ox 98 03/03/24 16:00 O2 Del Method Room Air 03/03/24 16:00 O2 Flow Rate 97 02/29/24 06:59 BMI result Body Mass Index 42.4 Const: General: cooperative HEENT: Head: Yes normal to inspection Face and sinus: Yes normal facial exam Mouth: Normal oral and palatal mucosa present Teeth and gingiva: dentition normal Eyes: General: appearance normal, both eyes and all related structures Pupils: Equal, round and reactive pupils present Resp: Effort & Inspection: normal respiratory effort Cardio: Rate: regular rate Rhythm: regular rhythm GI: Palpation (GI): Soft to palpation and nontender : General: Yes no CVA tenderness Back/Spine/Pelvis: Back: no CVA tenderness Skin: General skin exam: no rashes or lesions noted Neuro: General: moves all extremities Cranial nerves: Yes Equal, round and reactive pupils present Extrem: General: Yes normal to inspection Psych: Appearance: grossly normal Results Labs 03/01/24 06:06 03/01/24 06:06 Microbiology Microbiology Results: Microbiology 02/28/24 16:03 Blood - Venous Blood Culture - Preliminary No growth after 48 hours. 02/28/24 15:06 Blood - Venous Blood Culture - Preliminary No growth after 48 hours. Assessment and Plan (1) Depression: Status: Acute Plan She has prior bacteremia and buttock absess and now feels well. She refuses placement and brings her things and says she would like to stay in hospital for remainder of therapy ( three weeks). Would give three weeks Kefzol or Vancomycin or Daptomycin. Check HIV and Hepatitis C. Would ask case management about any other placement options. There are no po alternatives so if wants po go AMA.
[2024-03-03 16:44] LABS: Glucose, Whole Blood 259 mg/dL (60-115)
[2024-03-03 20:28] LABS: Glucose, Whole Blood 283 mg/dL (60-115)
[2024-03-03] MEDS: Mirtazapine 15 MG TABLET PO (21:17)
[2024-03-03 23:11] VITALS: BP 116/66; PULSE 99; RESP 18; TEMP 36.5; O2SAT 97
[2024-03-04] MEDS: ceFAZolin Sodium/Dextrose,Iso 2 GM/50 ML PIGGYBACK IV ×2 (01:36→11:04)
[2024-03-04] MEDS: Heparin Sodium,Porcine 5,000 UNIT/ML VIAL 5000 UNIT SUBCUT ×2 (01:39→13:40)
[2024-03-04 07:24] LABS: Glucose, Whole Blood 255 mg/dL (60-115)
[2024-03-04 07:36] VITALS: BP 127/77; PULSE 94; RESP 14; TEMP 36.2; O2SAT 97
[2024-03-04] MEDS: lisinopriL 5 MG TABLET PO (08:05)
[2024-03-04] MEDS: Docusate Sodium 100 MG CAPSULE PO (08:05)
[2024-03-04] MEDS: amLODIPine Besylate 2.5 MG TABLET 7.5 MG PO (08:05)
[2024-03-04] MEDS: Potassium Chloride ER 20 MEQ TAB.ER.PRT PO (08:06)
[2024-03-04] MEDS: methADONE HCl 20 MG/2 ML ORAL.CONC 95 MG PO (08:07)
[2024-03-04] MEDS: Insulin Lispro 100 UNIT/ML 3 ML VIAL SUBCUT ×2 (08:12→12:00)
[2024-03-04] MEDS: Insulin Glargine,Hum.rec.anlog 100 UNIT/ML 10 ML VIAL 25 UNIT SUBCUT (08:12)
[2024-03-04] MEDS: 0.9 % Sodium Chloride Flush 3 ML SYRINGE IVFLUSH ×2 (08:14→15:58)
--- NOTE | 2024-03-04 11:30 | P.PNIM_ITS ---
Subjective Subjective Date of Service: 03/04/24 Interval History: F/u on MSSA bacteremia, buttock wound and abscess s/p I and D Physical Exam 2 Vital Signs: Vital Signs: Last Vital Signs Temp 97.1 F 03/04/24 07:36 Pulse 94 03/04/24 07:36 Resp 14 03/04/24 07:36 BP 127/77 03/04/24 07:36 Pulse Ox 97 03/04/24 07:36 O2 Del Method Room Air 03/04/24 07:36 O2 Flow Rate 97 02/29/24 06:59 BMI result Body Mass Index 42.4 Appearing in no acute distress lung sounds are clear to auscultation heart regular rate rhythm, clear S1, S2 positive bowel sounds, abdomen is soft, nontender neuro patient is alert x3, no focal deficits perirrectal wound, freely draining Objective Data Active Medications Acetaminophen (Acetaminophen 325 Mg Tablet) 650 mg PO Q6H PRN PRN Reason: Pain, Mild (Pain Scale 1-3), fever or headache Amlodipine Besylate (Amlodipine Besylate 2.5 Mg Tablet) 7.5 mg PO DAILY [facility]; Protocol Last Admin: 03/04/24 08:05 Dose: 7.5 mg Documented By: BLAZE Calcium Carbonate (Calcium Carbonate 750 Mg Tab.Chew) 750 mg PO Q4H PRN PRN Reason: Heartburn Docusate Sodium (Docusate Sodium 100 Mg Capsule) 100 mg PO BID [facility] Last Admin: 03/04/24 08:05 Dose: 100 mg Documented By: BLAZE Glucose (Glucose Gel 15 Gm Gel..Gram.) 15 gm PO Q15M PRN; Protocol PRN Reason: per Hypoglycemia Standing Ord. Heparin Sodium (Porcine) (Heparin Sodium,Porcine 5,000 Unit/Ml Vial) 5,000 unit SUBCUT Q12H [facility] Last Admin: 03/04/24 01:39 Dose: 5,000 unit Documented By: ZACARIASK Dextrose (D10) 250 mls @ 750 mls/hr IV Q15M PRN; Protocol PRN Reason: per Hypoglycemia Standing Ord. Cefazolin Sodium/Dextrose (Ancef) 2 gm in 50 mls @ 100 mls/hr IV Q8H [facility] Last Admin: 03/04/24 11:04 Dose: 100 mls/hr Documented By: BLAZE Insulin Glargine (Insulin Glargine,Hum.Rec.Anlog 100 Unit/Ml 10 Ml Vial) 25 unit SUBCUT DAILY [facility] Last Admin: 03/04/24 08:12 Dose: 25 unit Documented By: BLAZE Insulin Human Lispro (Insulin Lispro 100 Unit/Ml 3 Ml Vial) 0 unit SUBCUT QIDACHS [facility]; Protocol Last Admin: 03/04/24 08:12 Dose: 6 unit Documented By: BLAZE Lisinopril (Lisinopril 5 Mg Tablet) 5 mg PO DAILY [facility]; Protocol Last Admin: 03/04/24 08:05 Dose: 5 mg Documented By: BLAZE Melatonin (Melatonin 3 Mg Tablet) 6 mg PO BEDTIME PRN PRN Reason: Insomnia Methadone HCl (Methadone Hcl 20 Mg/2 Ml Oral.Conc) 95 mg PO DAILY [facility] Last Admin: 03/04/24 08:07 Dose: 95 mg Documented By: BLAZE Mirtazapine (Mirtazapine 15 Mg Tablet) 15 mg PO BEDTIME [facility] Last Admin: 03/03/24 21:17 Dose: 15 mg Documented By: CHRISTIANO Morphine Sulfate (Morphine Sulfate 2 Mg/Ml Cartridge) 2 mg IVPUSH Q3H PRN; Protocol PRN Reason: Pain, Severe (Pain Scale 7-10) Ondansetron HCl (Ondansetron Hcl 4 Mg/2 Ml Vial) 4 mg IVPUSH Q4H PRN PRN Reason: Nausea and Vomiting Last Admin: 03/01/24 06:20 Dose: 4 mg Documented By: GERRI Oxycodone HCl (Oxycodone Hcl Immed Release 5 Mg Tablet) 5 mg PO Q6H PRN PRN Reason: Pain, Moderate(Pain Scale 4-6) Polyethylene Glycol (Polyethylene Glycol 3350 17 Gm Powd.Pack) 17 gm PO DAILY PRN PRN Reason: Constipation Last Admin: 02/28/24 19:48 Dose: 17 gm Documented By: GERRI Potassium Chloride (Potassium Chloride Er 20 Meq Tab.Er.Prt) 20 meq PO DAILY [facility] Last Admin: 03/04/24 08:06 Dose: 20 meq Documented By: BLAZE Sodium Chloride (0.9 % Sodium Chloride Flush 3 Ml Syringe) [facility] Last Admin: 07/02/24 08:14 Dose: 3 ml Documented By: BLAZE Labs 03/01/24 06:06 03/01/24 06:06 Labs: Laboratory Results - last 24 hr 03/03/24 03/03/24 03/03/24 11:37 16:34 20:14 POC Glucose 343 H 259 H 283 H 03/04/24 07:20 POC Glucose 255 H Assessment and Plan (1) MSSA bacteremia: Status: Acute Plan 38-year-old female with history of cyclical vomiting syndrome, uncontrolled diabetes, hypertension and recent admission for DKA, buttock abscess, discharged to [facility] for long-term antibiotics on February 25 where she left AMA shortly after arriving as she felt she was not getting appropriate medical care. She returned to the emergency department on February 27 for readmission management of buttock abscess and bacteremia. SI/self harm Patient seen by psych and cleared for outpatient therapy, pt again reported that she is suicidal care team to re-assess patient this morning mirtazapine ordered by psychiatric provider Buttock cellulitis and abscess diagnosed on previous admission white count resolved seen by surgery and underwent I&D 02/23/24 continues with drainage and induration continue local wound care. No further I & D required MSSA bacteremia diagnosed on previous admission likely skin source IV cefazolin needs 4 weeks IV abx (end date 03/20/24) Blood cultures negative to date Midline placed Left arm wound chronic, does not appear to be infected Wound care nurse following> see note for wound care recs and photographic documentation Type 2 diabetes with hyperglycemia Lantus, SSI, ADA diet Acute lactic acidosis Lactic acid 2.1 Does not meet sirs criteria. No sepsis Hypokalemia resolved. Opiate use disorder On methadone at baseline Addiction medicine team following, dose uptitrated Hypertension Continue lisinopril, Norvasc Chronic microcytic anemia Above transfusion threshold Morbid obesity BMI 42.4 Discussed importance of weight management as this may be contributing to worsening of other comorbidities DVT prophylaxis-heparin full code Attending Dr. Timo muniz - [facility] waiting on care team re-consult Requires ongoing inpatient stay in the hospital for IV antibiotics and management of left buttock wound and bacteremia Quality Stroke Does the patient have a stroke diagnosis?: No VTE Prior VTE?: No VTE Risk Level:: Medical - moderate - high VTE Device Contraindication: N/A - Device Ordered VTE Drug Contraindication: N/A - Med Ordered
[2024-03-04 11:36] LABS: Glucose, Whole Blood 324 mg/dL (60-115)
--- NOTE | 2024-03-04 15:20 | MHC.CM.PN ---
Per hospitalist patient is cleared by psych and care team and now agreeable to SNF for IV abx. BLS transport scheduled for 5pm to [facility].
--- NOTE | 2024-03-04 15:46 | P.DS_ITS ---
DS: Providers Provider Date of Service: 03/04/24 Date of admission: 02/28/24 16:23 Primary care physician: None Physician Consults: 02/28/24 16:19 Consult to General Surgery Routine Consulting Provider: [facility] General Surgeons Reason for consultation: left buttock abscess Has provider been notified: No 02/28/24 16:57 Addiction Medicine Routine Consulting Provider: Addiction Covering Reason for consultation: substance use on methadone Has provider been notified: No 02/28/24 18:59 Consult to Wound Care Routine Reason for consultation: cellulitis with abscess to left buttock. redness to left upper arm. 03/03/24 10:40 Consult to Care Team Routine Comment: Reason for consultation: reports if discharged will intensionally overdose 03/03/24 10:42 Consult to Infectious Diseases Routine Consulting Provider: [facility] Infectious Disease [facility] Reason for consultation: bacteremia 03/03/24 14:09 Consult to Psychiatry Routine Consulting Provider: Psych Covering Reason for consultation: SI, medical issues DS: Diagnosis Discharge Diagnosis (1) MSSA bacteremia: Status: Acute DS: Summary Hospital Course Hospital Course: History and physical as per admitting provider. This is a 38-year-old female with history of IVDU, recent admission for MSSA bacteremia, and large buttock abcess who returns to the ED seeking help. A PICC line was placed on February 25 and she was discharged to [facility] with the plans for 4 weeks of IV antibiotics. Unfortunately she left against medical advice yesterdayshe did not feel that she was getting the care that she needed. She had been trying to manage her buttock wound at home but has been soaking through 8 boxes of gauze in the last day and a half and was having difficulty managing her care. In addition she acknowledges that she needs IV antibiotics and presents for further care. On admission she was noted to have leukocytosis of 12.4 which is lower than her previous admission, she was afebrile. New Blood cultures were obtained and she received a dose of IV vancomycin. 31-year-old woman treated for MSSA bacteremia. She was recently discharged to [facility] for IV antibiotics and 14 left against medical advice and returned to [facility]. She was continued on cefazolin while inpatient and new midline was placed. At this time plan will be to switch to vancomycin with last date of 03/20/2024, RN may remove midline after last dose. She also has a perirectal abscess which is improving significantly, some drainage continues but she had an I and D on 02/23/2024 and has not required any further surgical treatment for that. May continue local wound care. She does have a chronic left arm wound but that does not appear to be infected and no treatment for that at this time. She did have an episode of suicidal ideation however that was reported by her to be out of fear of her going home, she was told that she would not be going home and she was offered a bed at a short-term rehab facility to continue her IV antibiotics. She was seen evaluated by the psychiatric team who cleared her and did not think she required any psychiatric admission. Patient also denied that she had any suicidal ideation today. Plan will be to transfer to [facility] to continue her IV antibiotics. Diabetes mellitus type 2. Does have some episodes of hypoglycemia continue her sliding scale, long-acting insulin Hypokalemia. Resolved with repletion History of opiate use disorder. On methadone. Last dose 03/04/2024 Hypertension. Continue lisinopril and Norvasc Chronic microcytic anemia. Above transfusion threshold during admission Morbid obesity. BMI 42.4 Discussed importance of weight management as this may be contributing to worsening of other comorbidities Less than 30 day stay expected Time Attestation Discharge Coordination Time (in mins): 45 Quality: Safe Use of Opioids Does Pt have an Active Cancer Diagnosis on the Problem List?: No Quality: Stroke Does the patient have a stroke diagnosis?: No Physical Exam Vital Signs: Vital Signs: Last Vital Signs Temp 97.1 F 03/04/24 07:36 Pulse 94 03/04/24 07:36 Resp 14 03/04/24 07:36 BP 127/77 03/04/24 07:36 Pulse Ox 97 03/04/24 07:36 O2 Del Method Room Air 03/04/24 07:36 O2 Flow Rate 97 02/29/24 06:59 BMI result Body Mass Index 42.4 Appearing in no acute distress head is normocephalic atraumatic eyes pupils are PERRLA sclera is anicteric mouth throat mucous membranes are intact and moist neck is supple no lymphadenopathy, no JVD noted lung sounds are clear to auscultation heart regular rate rhythm, clear S1, S2 positive bowel sounds, abdomen is soft, nontender neuro patient is alert x3, no focal deficits perirectal abscess, s/p I&D covered with gauze old non infected wounds to left arm DS: Data Data Completed and Pending Completed studies during hospitalization [Text1]: Procedures Drainage of Buttock Subcutaneous Tissue and Fascia, Open Approach (02/21/24) Insertion of Infusion Device into Superior Vena Cava, Percutaneous Approach (02/21/24) Insertion of Infusion Device into Upper Vein, Percutaneous Approach (02/21/24) Ultrasonography of Superior Vena Cava, Guidance (02/21/24) Labs on day of discharge: Laboratory Results - last 24 hr 03/03/24 03/03/24 03/04/24 16:34 20:14 07:20 POC Glucose 259 H 283 H 255 H 03/04/24 11:31 POC Glucose 324 H Preliminary micro results at discharge 02/28/24 16:03 Blood Culture - Preliminary Blood - Venous No growth after 48 hours. 02/28/24 15:06 Blood Culture - Preliminary Blood - Venous No growth after 48 hours. Discharge Plan Discharge Anticipated Discharge Date/Time: 03/04/24 15:28 Patient Disposition: er Inpatient Rehab Fac Discharge Diagnosis: MSSA bacteremia Perirectal abscess/cellulitis [facility]: [facility]Outside] - 1 Day (for IV abx) Discharge Medications: New methadone [Methadose] 10 mg/mL Concentrate 95 mg PO DAILY Qty: 30 0RF Rx Instructions: Partial Fill upon patient request. vancomycin in 0.9 % sodium chl 1 gram/250 mL solution 1 g IV Q12H Continued (DME) FreeStyle Lite Strips Strip Qty: 100 0RF Rx Instructions: Test four times a day or as directed. (DME) FreeStyle Lite Strips Strip Qty: 100 0RF Rx Instructions: Test four times a day or as directed. (DME) blood-glucose meter [FreeStyle Lite Meter] Kit Qty: 1 0RF Rx Instructions: As Directed insulin lispro [Humalog KwikPen Insulin] 100 unit/mL insulin pen See Rx Instructions .ROUTE .COMPLEX MDD 30 Qty: 15 0RF Rx Instructions: Blood Sugar: <150 - 0 units 151-200 - 2 units 201-250 - 4 units 251-300 - 6 units 301-350 - 8 units >350 - 10 units (DME) pen needle, diabetic 32 gauge x 1/4 needle Qty: 100 0RF Rx Instructions: Use four times a day or as directed. (DME) lancets [FreeStyle Lancets] 28 gauge misc Qty: 100 0RF Rx Instructions: Test four times a day or as directed. amlodipine 5 mg tablet 7.5 mg PO DAILY 60 Days Qty: 90 0RF lisinopril 5 mg tablet 5 mg PO DAILY 60 Days Qty: 60 0RF potassium chloride 20 mEq Tablet,Er Particles/Crystals 20 meq PO DAILY Qty: 7 0RF insulin glargine [Lantus U-100 Insulin] 100 unit/mL Solution 20 unit subcut DAILY Qty: 10 0RF Discontinued methadone 10 mg/mL Concentrate 75 mg PO DAILY Qty: 30 0RF Rx Instructions: [facility] vancomycin in 0.9 % sodium chl 1 gram/250 mL solution 1 g IV Q12H Discharge Orders: Discharge Order (Routine); Ordered 03/04/24 Ordered By: Tameka Pizano Diet: Advance to usual diet Activity on Discharge: As tolerated Stand Alone Forms: Patient Portal Discharge page Print Language: Nauruan Care Plan Goals: Daptomycin for MSSA bacteremia. End date February 19 2024. RN may remove midline after last dose Methadone last dose 03/04/2024 at 08:07-95 mg Health Concerns: MSSA bacteremia Perirectal abscess/cellulitis Plan of Treatment: Follow-up as soon as possible to make a primary care doctor appointment Take all medications as prescribed Assessment: See discharge summary Discharge Date/Time: 03/04/24 17:15
[2024-03-04 15:49] VITALS: BP 123/78; PULSE 98; RESP 18; TEMP 36.9; O2SAT 95
--- NOTE | 2024-03-04 16:04 | PM.PSYCN ---
History of Present Illness Date of Service: t Chief Complaint: bacteremia, buttock abscess Reason for Consult: Reassessment of mental status Requesting physician: Tameka Pizano Discussed with referring provider: Yes Sources of Information: patient interviewed, chart reviewed and crisis/core team assessment reviewed HPI Narrative: The care team came and asked to be reassess since the patient was reporting suicidal ideation. Apparently she does not want to be transferred to a half-way facility for IV antibiotic treatment. Please see the 1st admission note of yesterday. We discussed at length about her depressive symptoms, the patient adamantly denies suicidal ideation she states that she does not want to go back home because she could and she was advocating to have VNA services to get IV antibiotics at home. Apparently since the patient has a past history of IV drug use she needs to go to a residential. We were assessing her with the primary team and she was in agreement to be transferred to [facility] for half-way facility and subacute rehab. She is able to contract for safety. Past Psychiatric History: She has never been admitted into Psychiatry she does not have outpatient providers at this moment. She was seen by addiction medicine a few days ago. REPLACED BY [facility] Medical History Sepsis PCOS (polycystic ovarian syndrome) Rash Polysubstance (excluding opioids) dependence, daily use Methadone maintenance therapy patient Anxiety and depression Diabetes Family History: The patient admitted substance abuse in her family. Social History: Single mother of a young adult daughter, financial constraints and several psychosocial stressors. Trauma History: She reported past trauma but refused to elaborate. Diagnostics Vital Signs (24Hr): Vital Signs - 24 hr 03/03/24 23:11 03/04/24 07:36 03/04/24 15:49 Temperature 97.7 F 97.1 F 98.4 F Pulse Rate 99 94 98 Respiratory Rate 18 14 18 Blood Pressure 116/66 127/77 123/78 Pulse Oximetry 97 97 95 Oxygen Delivery Method Room Air Room Air Room Air BMI result Body Mass Index 42.4 Labs 03/01/24 06:06 03/01/24 06:06 Labs: Laboratory Results - last 48 hr 03/02/24 03/02/24 03/03/24 16:40 20:03 07:25 POC Glucose 265 H 265 H 244 H 03/03/24 03/03/24 03/03/24 11:37 16:34 20:14 POC Glucose 343 H 259 H 283 H 03/04/24 03/04/24 07:20 11:31 POC Glucose 255 H 324 H Mental Status Exam Mental Status Exam Patient Appearance: Appropriate Patient Orientation: Person and Situation Level of Consciousness: Awake and Appropriate Patient Behavior: Guarded and Passive Mood Description: Withdrawn Affect Description: Constricted Patient Cognition Impaired: Yes Ability to Follow Directions: Good Speech Pattern: Clear Hallucinations: None Delusions: Not Present Thought Process: Goal Oriented and Linear Thought Content: positive for [place] and positive for Circumstantial Judgement: Good Medications Medications Current Medications Acetaminophen (Acetaminophen 325 Mg Tablet) 650 mg PO Q6H PRN PRN Reason: Pain, Mild (Pain Scale 1-3), fever or headache Amlodipine Besylate (Amlodipine Besylate 2.5 Mg Tablet) 7.5 mg PO DAILY [facility]; Protocol Last Admin: 03/04/24 08:05 Dose: 7.5 mg Calcium Carbonate (Calcium Carbonate 750 Mg Tab.Chew) 750 mg PO Q4H PRN PRN Reason: Heartburn Docusate Sodium (Docusate Sodium 100 Mg Capsule) 100 mg PO BID [facility] Last Admin: 03/04/24 08:05 Dose: 100 mg Glucose (Glucose Gel 15 Gm Gel..Gram.) 15 gm PO Q15M PRN; Protocol PRN Reason: per Hypoglycemia Standing Ord. Heparin Sodium (Porcine) (Heparin Sodium,Porcine 5,000 Unit/Ml Vial) 5,000 unit SUBCUT Q12H [facility] Last Admin: 03/04/24 13:40 Dose: 5,000 unit Dextrose (D10) 250 mls @ 750 mls/hr IV Q15M PRN; Protocol PRN Reason: per Hypoglycemia Standing Ord. Cefazolin Sodium/Dextrose (Ancef) 2 gm in 50 mls @ 100 mls/hr IV Q8H [facility] Last Infusion: 03/04/24 11:52 Dose: Infused Insulin Glargine (Insulin Glargine,Hum.Rec.Anlog 100 Unit/Ml 10 Ml Vial) 25 unit SUBCUT DAILY [facility] Last Admin: 03/04/24 08:12 Dose: 25 unit Insulin Human Lispro (Insulin Lispro 100 Unit/Ml 3 Ml Vial) 0 unit SUBCUT QIDACHS [facility]; Protocol Last Admin: 03/04/24 12:00 Dose: 8 unit Lisinopril (Lisinopril 5 Mg Tablet) 5 mg PO DAILY [facility]; Protocol Last Admin: 03/04/24 08:05 Dose: 5 mg Melatonin (Melatonin 3 Mg Tablet) 6 mg PO BEDTIME PRN PRN Reason: Insomnia Methadone HCl (Methadone Hcl 20 Mg/2 Ml Oral.Conc) 95 mg PO DAILY [facility] Last Admin: 03/04/24 08:07 Dose: 95 mg Mirtazapine (Mirtazapine 15 Mg Tablet) 15 mg PO BEDTIME [facility] Last Admin: 03/03/24 21:17 Dose: 15 mg Morphine Sulfate (Morphine Sulfate 2 Mg/Ml Cartridge) 2 mg IVPUSH Q4H PRN; Protocol PRN Reason: Pain, Severe (Pain Scale 7-10) Ondansetron HCl (Ondansetron Hcl 4 Mg/2 Ml Vial) 4 mg IVPUSH Q4H PRN PRN Reason: Nausea and Vomiting Last Admin: 03/01/24 06:20 Dose: 4 mg Oxycodone HCl (Oxycodone Hcl Immed Release 5 Mg Tablet) 5 mg PO Q6H PRN PRN Reason: Pain, Moderate(Pain Scale 4-6) Polyethylene Glycol (Polyethylene Glycol 3350 17 Gm Powd.Pack) 17 gm PO DAILY PRN PRN Reason: Constipation Last Admin: 02/28/24 19:48 Dose: 17 gm Potassium Chloride (Potassium Chloride Er 20 Meq Tab.Er.Prt) 20 meq PO DAILY [facility] Last Admin: 03/04/24 08:06 Dose: 20 meq Sodium Chloride (0.9 % Sodium Chloride Flush 3 Ml Syringe) 3 ml IVFLUSH QSHIFT [facility] Last Admin: 03/04/24 15:58 Dose: 3 ml Allergies Allergies Allergy/AdvReac Type Severity Reaction Status Date / Time No Known Allergies Allergy Verified 02/28/24 13:24 Assessment & Plan Assessment & Plan (1) Depression: Status: Acute Code(s): F32.A - Depression, unspecified (2) MSSA bacteremia: Status: Acute Code(s): R78.81 - Bacteremia; B95.61 - Methicillin susceptible Staphylococcus aureus infection as the cause of diseases classified elsewhere (3) Opioid use disorder: Status: Acute Code(s): F11.90 - Opioid use, unspecified, uncomplicated Plan The patient is an adult female with a past history of opiate use disorder, metabolic syndrome and recently admitted for sepsis after she was sign AMA of an half-way facility for IV antibiotics readmitted for medical treatment. Yesterday we assessed her and she was not inpatient level of care even today she was depressed in the context of several stressors. Plan 1. The patient is in agreement of going to the half-way facility [facility] for continuation of treatment. 2. The patient is not suicidal she does not want to but she is advocating for care. 3. Reassessment as demand. Total time managing care of this patient today __20__ minutes. Patient educated on: diagnosis Informed Consent: understands
[2024-03-04 16:29] LABS: Glucose, Whole Blood 197 mg/dL (60-115)
== END 2024-03-04 17:15 | DRG 383 ==
LOC: HO.ED 15:59 → HO.EDOVER 16:32 → HO.S3 17:16
PROVIDERS: Internal Medicine; Admitting Provider Physician Assistant Medical; Emergency Provider Emergency Medicine; Visit Provider Nurse Practitioner Acute Care
DX: L02.31 Cutaneous abscess of buttock (principal); E87.21 Acute metabolic acidosis; R45.851 Suicidal ideations; R78.81 Bacteremia; B95.61 Methicillin susceptible Staphylococcus aureus infection as the cause of diseases classified elsewhere; E11.65 Type 2 diabetes mellitus with hyperglycemia; D50.9 Iron deficiency anemia, unspecified; E28.2 Polycystic ovarian syndrome; F32.A Depression, unspecified; I10 Essential (primary) hypertension; E87.6 Hypokalemia; L03.317 Cellulitis of buttock; E66.01 Morbid (severe) obesity due to excess calories; Z68.41 Body mass index [BMI] 40.0-44.9, adult; F11.20 Opioid dependence, uncomplicated; Z79.4 Long term (current) use of insulin; Z87.891 Personal history of nicotine dependence; Z79.899 Other long term (current) drug therapy
CPT/HCPCS: 36410; 36415; 80048; 80076; 80307; 82803; 82947; 83605; 83690; 83735; 84145; 85025; 85027; 87040; 99285; C1751; J0690; J1644; J2405; J3370; S9485

== ENCOUNTER → 2024-02-28 16:23 | Outpatient (BNV) | payer OTHER, SELFPAY | PROVIDERS: Admitting Provider Physician Assistant Medical; Emergency Provider Emergency Medicine; Visit Provider Physician Assistant Medical | DX: R78.81 Bacteremia (principal); B95.61 Methicillin susceptible Staphylococcus aureus infection as the cause of diseases classified elsewhere; L02.31 Cutaneous abscess of buttock; E87.20 Acidosis, unspecified | CPT/HCPCS: 99223; 99232; 99239 ==

== ENCOUNTER → 2024-02-28 16:23 | Outpatient (BNV) | payer OTHER, SELFPAY | PROVIDERS: Admitting Provider Physician Assistant Medical; Emergency Provider Emergency Medicine; Visit Provider Internal Medicine | DX: F32.A Depression, unspecified (principal) | CPT/HCPCS: 99222 ==

== ENCOUNTER → 2024-02-28 16:23 | Outpatient (BNV) | payer OTHER, SELFPAY | PROVIDERS: Admitting Provider Physician Assistant Medical; Emergency Provider Emergency Medicine; Visit Provider Surgery | DX: L02.31 Cutaneous abscess of buttock (principal) | CPT/HCPCS: 99222 ==

== ENCOUNTER → 2024-02-28 16:23 | Outpatient (BNV) | payer OTHER, SELFPAY | PROVIDERS: Admitting Provider Physician Assistant Medical; Emergency Provider Emergency Medicine; Visit Provider Nurse Practitioner Psychiatric/Mental Health | DX: F32.2 Major depressive disorder, single episode, severe without psychotic features (principal); F11.90 Opioid use, unspecified, uncomplicated; R78.81 Bacteremia; B95.61 Methicillin susceptible Staphylococcus aureus infection as the cause of diseases classified elsewhere | CPT/HCPCS: 99231; 99499 ==

== ENCOUNTER 2024-03-04 19:49 | Emergency (ER) | payer OTHER, SELFPAY ==
[2024-03-04 20:10] VITALS: BP 122/80; BP 135/71; PULSE 104; PULSE 108; RESP 16; TEMP 37; O2SAT 94; O2SAT 96; BMI 39.4
--- NOTE | 2024-03-04 21:14 | ED.GENADULT ---
HPI - General Adult General Chief complaint: General Medical Stated complaint: from 3rd floor, not accepted to facility,returning Time Seen by Provider: 03/04/24 20:00 Source: patient Mode of arrival: EMS Limitations: no limitations History of Present Illness HPI narrative: Patient is a 39-year-old male presents to the emergency department via EMS, she was discharged from this hospital earlier today after an inpatient stay for MSSA bacteremia, she was discharged to [place] [facility] with plan for continued course of IV antibiotics. Initial prescribed antibiotic was not going to be available at facility, Tameka Pizano NP hospitalist service and course of treatment was transitioned to vancomycin 1 g every 12 hours. Upon arriving to the facility patient was denied admission, reportedly she has a bed available but will not be accepted for admission until tomorrow therefore patient was transported back to the emergency department. No acute complaints at this time. Related Data Previous Rx's ?Medication ?Instructions ?Recorded blood sugar diagnostic (FreeStyle #100 ea 02/14/23 Lite Strips) amlodipine 5 mg tablet 7.5 mg (1.5 x 5 mg) PO DAILY 60 11/29/23 days #90 tabs blood sugar diagnostic (FreeStyle #100 ea 11/29/23 Lite Strips) blood-glucose meter (FreeStyle #1 ea 11/29/23 Lite Meter kit) insulin lispro 100 unit/mL See Rx Instructions .Route 11/29/23 subcutaneous pen (Humalog KwikPen .COMPLEX #15 mL (U-100) Insulin) lancets 28 gauge (FreeStyle #100 ea 11/29/23 Lancets) lisinopril 5 mg tablet 5 mg PO DAILY 60 days #60 tabs 11/29/23 pen needle, diabetic 32 gauge x #100 ea 11/29/23 1/4 insulin glargine 100 unit/mL 20 unit (0.2 mL) subcut DAILY #10 02/26/24 subcutaneous solution (Lantus mL U-100 Insulin) potassium chloride 20 mEq 20 meq PO DAILY #7 tabs 02/26/24 tablet,extended release(part/cryst) methadone 10 mg/mL oral 95 mg (9.5 mL) PO DAILY #30 mL 03/04/24 concentrate (Methadose) vancomycin 1 gram/250 mL in 0.9 % 1 g (250 mL) IV Q12H 03/04/24 sodium chloride intravenous Allergies Allergy/AdvReac Type Severity Reaction Status Date / Time No Known Allergies Allergy Verified 03/04/24 20:18 Review of Systems Review of Systems: Yes all other systems are reviewed and are negative [facility] Past Medical History Attestation statement: The following information was validated with the patient. Source: old records reviewed Medical History Sepsis PCOS (polycystic ovarian syndrome) Rash Polysubstance (excluding opioids) dependence, daily use Methadone maintenance therapy patient Anxiety and depression Diabetes Social History Social History Household Members: Other Household Members Other:: daughter Housing: Apartment Do you presently have visiting nurse or other home services: No Alcohol intake: current Alcohol intake frequency: does not drink Patient Tobacco Use Status: Former Tobacco user Tobacco use type: Cigarette Cigarette Packs Per Day: 3 Cigarettes Per Day: 60.0 Years Smoked: 2 e-Cigarette/Vaping Use: Never Used Substance Use Type: Heroin and Marijuana Advance Directives: Yes Advance Directives on File: Yes Advance Directives Date on File: 01/11/22 service: No Current occupational status: unemployed Physical Exam ED Vital Signs: Vital Signs - 24 hr 03/04/24 20:10 03/04/24 22:32 03/05/24 00:40 Temperature 98.6 F 98.4 F 97.3 F Pulse Rate 108 H 94 93 Respiratory Rate 16 16 16 Blood Pressure 135/71 118/71 109/64 Pulse Oximetry 96 94 95 Oxygen Delivery Method Room Air Room Air Room Air 03/05/24 06:32 03/05/24 09:20 03/05/24 09:20 Temperature 97.6 F Pulse Rate 90 Respiratory Rate 16 Blood Pressure 109/65 101/75 101/75 Pulse Oximetry 97 Oxygen Delivery Method Room Air BMI result Body Mass Index 39.4 Appearance: Alert.?Oriented to person, place and time. No acute distress.?Normal affect. Eyes: Pupils equal, round and reactive to light.? ENT: Pharynx normal.?? Neck: Normal inspection.? Neck supple.?? CVS: Heart sounds normal. Normal heart rate and rhythm.? Pulses normal.?? Respiratory: No respiratory distress.? Lung sounds clear to auscultation bilaterally?? Abdomen: Soft and non-tender. Normoactive bowel sounds. ? Skin: Skin warm and dry.? Normal skin color.? Chronic wound to left forearm Extremities: No lower extremity edema.? No calf ttp? Neuro: Moves all extremities spontaneously. Sensation intact bilaterally. Ambulates with normal steady gait. Course Course Course Narrative: 03/05/2024--0649--physician observation continued. Vital signs stable. Pending transfer to [facility], will continue to monitor 1029--patient will receive her 11am Vancomycin dose and then d/c to [facility]. Physician observation to be completed at 12:00PM Results discussed with patient including worrisome signs and symptoms and strict return precautions, and when to return to the emergency department. They verbalized understanding and feel safe for discharge at this time. Medications Administered Generic Name Dose Route Start Last Admin Trade Name Freq PRN Reason Stop Dose Admin Amlodipine Besylate 7.5 mg 03/05/24 09:00 03/05/24 09:20 Amlodipine Besylate 2.5 Mg Tablet PO 7.5 mg DAILY [facility] Administration Protocol Vancomycin HCl 1,000 mg/ 270 mls @ 270 mls/hr 03/04/24 23:00 03/05/24 11:34 Sodium Chloride IV Infused Q12H [facility] Infusion Insulin Glargine 20 unit 03/05/24 09:00 03/05/24 09:23 Insulin Glargine,Hum.Rec.Anlog 100 Unit/Ml 10 Ml Vial SUBCUT 20 unit DAILY [facility] Administration Insulin Human Lispro 0 unit 03/05/24 07:30 03/05/24 09:23 Insulin Lispro 100 Unit/Ml 3 Ml Vial SUBCUT 6 unit QIDACHS [facility] Administration Protocol Lisinopril 5 mg 03/05/24 09:00 03/05/24 09:20 Lisinopril 5 Mg Tablet PO 5 mg DAILY NAS[facility] Administration Protocol Methadone HCl 95 mg 03/05/24 09:00 03/05/24 09:21 Methadone Hcl 20 Mg/2 Ml Oral.Conc PO 95 mg DAILY [facility] Administration Potassium Chloride 20 meq 03/05/24 09:00 03/05/24 09:20 Potassium Chloride Er 20 Meq Tab.Er.Prt PO 20 meq DAILY NASH Administration Medical Decision Making Medical Decision Making [facility] Narrative: Patient is a 39-year-old female with history of IV drug use with [place] [facility] [place], was discharged today to [facility] for completion of IV antibiotics with anticipated last date 03/20/2024 but declined admission on arrival, she has a a healing gabriela rectal abscess after incision and drainage 02/23/2024, and a chronic left arm wound with recommendations for local wound care with no acute infection. At this time no indication for repeat labs or additional treatment. Disposition has been determined, [facility] she is [facility] for transfer tomorrow. Patient to receive vancomycin in the emergency department. Case Management and folding care. Placed in physician observation at 20:37 until transfer tomorrow. Differential Diagnosis Differential Diagnoses: The differential diagnosis associated with the presentation includes (See narrative above) Lab Data Labs: Lab Results 03/05/24 Range/Units 07:51 POC Glucose 260 H (60-115) mg/dL Independent Historian Clinical information obtained from an independent historian. History obtained from or confirmed by: EMS External Record Review External record reviewed: Inpatient record Prescription Management I considered prescription management with: Antibiotic Discharge Plan Discharge Clinical Impression: MSSA bacteremia Patient Disposition: Xfer Inpatient Rehab Fac Transfer Details: TO [facility], [address] [place], [place],[address], Prescriptions: No Action (DME) FreeStyle Lite Strips Strip Qty: 100 0RF Rx Instructions: Test four times a day or as directed. (DME) FreeStyle Lite Strips Strip Qty: 100 0RF Rx Instructions: Test four times a day or as directed. (DME) blood-glucose meter [FreeStyle Lite Meter] Kit Qty: 1 0RF Rx Instructions: As Directed insulin lispro [Humalog KwikPen Insulin] 100 unit/mL insulin pen See Rx Instructions .ROUTE .COMPLEX MDD 30 Qty: 15 0RF Rx Instructions: Blood Sugar: <150 - 0 units 151-200 - 2 units 201-250 - 4 units 251-300 - 6 units 301-350 - 8 units >350 - 10 units (DME) pen needle, diabetic 32 gauge x 1/4 needle Qty: 100 0RF Rx Instructions: Use four times a day or as directed. (DME) lancets [FreeStyle Lancets] 28 gauge misc Qty: 100 0RF Rx Instructions: Test four times a day or as directed. amlodipine 5 mg tablet 7.5 mg PO DAILY 60 Days Qty: 90 0RF lisinopril 5 mg tablet 5 mg PO DAILY 60 Days Qty: 60 0RF potassium chloride 20 mEq Tablet,Er Particles/Crystals 20 meq PO DAILY Qty: 7 0RF insulin glargine [Lantus U-100 Insulin] 100 unit/mL Solution 20 unit subcut DAILY Qty: 10 0RF methadone [Methadose] 10 mg/mL Concentrate 95 mg PO DAILY Qty: 30 0RF Rx Instructions: Partial Fill upon patient request. vancomycin in 0.9 % sodium chl 1 gram/250 mL solution 1 g IV Q12H [facility] [Outside] Print Language: Angolan
[2024-03-04 22:32] VITALS: BP 118/71; PULSE 94; RESP 16; TEMP 36.9; O2SAT 94
--- NOTE | 2024-03-04 22:33 | MHC.CM.ED ---
CM received telephone call from Agustina Martinez, Capsule Filler. This patient was discharged today to [facility] for IV therapy and was on route in the ambulance, when the CM received word that the insurance would not pay for the DABTO antibiotic ordered. Tameka Pizano FLOOR NURSE was contacted, ID consulted and antibiotic was changed to Vancomycin, which is covered by the patient's insurance. The facility told Agustina Martinez that they would not accept the patient at the facility today and that she would need to be returned to [facility] and that they would accept the patient back in the morning. CM uploaded D/C summary and ED H&P in Care Port to [facility]. Will reach out to liaison in the morning regarding confirmation of bed and time to book transportation. CM spoke to patient on arrival. Apologized for facility and confusion. EMT's state they will file a complaint with the facility. CM will follow for safe discharge plan.
[2024-03-04] MEDS: vancomycin HCL 1,000 MG in 0.9 % Sodium Chloride 250 ML 270 MG IV (22:43)
[2024-03-05 00:40] VITALS: BP 109/64; PULSE 93; RESP 16; TEMP 36.3; O2SAT 95
[2024-03-05 06:32] VITALS: BP 109/65; PULSE 90; RESP 16; TEMP 36.4; O2SAT 97
[2024-03-05 07:54] LABS: Glucose, Whole Blood 260 mg/dL (60-115)
--- NOTE | 2024-03-05 09:02 | MHC.CM.ED ---
Patient remains in ER. Patient will receive 11am IV Vanco and then transfer to [facility]. Wade BRUSH booked for 12pm. Patient, Ines MARADIAGA and Thania OLEARY aware. Continue to monitor for d/c needs.
[2024-03-05 09:20] VITALS: BP 101/75
[2024-03-05] MEDS: lisinopriL 5 MG TABLET PO (09:20)
[2024-03-05] MEDS: amLODIPine Besylate 2.5 MG TABLET 7.5 MG PO (09:20)
[2024-03-05] MEDS: Potassium Chloride ER 20 MEQ TAB.ER.PRT PO (09:20)
[2024-03-05] MEDS: methADONE HCl 20 MG/2 ML ORAL.CONC 95 MG PO (09:21)
[2024-03-05] MEDS: Insulin Lispro 100 UNIT/ML 3 ML VIAL SUBCUT (09:23)
[2024-03-05] MEDS: Insulin Glargine,Hum.rec.anlog 100 UNIT/ML 10 ML VIAL 20 UNIT SUBCUT (09:23)
[2024-03-05] MEDS: vancomycin HCL 1,000 MG in 0.9 % Sodium Chloride 250 ML 270 MG IV (10:22)
--- NOTE | 2024-03-05 12:30 | PC.NURSE ---
Attempted to call report to [facility] with no success.
== END 2024-03-05 13:14 ==
PROVIDERS: Emergency Provider Internal Medicine
DX: A49.01 Methicillin susceptible Staphylococcus aureus infection, unspecified site (principal); R78.81 Bacteremia; E11.9 Type 2 diabetes mellitus without complications; F41.8 Other specified anxiety disorders
CPT/HCPCS: 82947; 96365; 96366; 99284; 99285; J3370

== ENCOUNTER 2024-05-15 14:22 | Emergency (ER) | payer OTHER, SELFPAY ==
[2024-05-15 15:01] VITALS: BP 173/128; PULSE 71; RESP 73; TEMP 37.1; O2SAT 98; BMI 39.2
--- NOTE | 2024-05-15 16:03 | ED.GENADULT ---
HPI - General Adult General Chief complaint: General Medical Stated complaint: Med refill Source: patient Mode of arrival: ambulatory Limitations: no limitations History of Present Illness HPI narrative: Left without completement of treatment by ED provider Related Data Previous Rx's ?Medication ?Instructions ?Recorded blood sugar diagnostic (FreeStyle #100 ea 02/14/23 Lite Strips) amlodipine 5 mg tablet 7.5 mg (1.5 x 5 mg) PO DAILY 60 11/29/23 days #90 tabs blood sugar diagnostic (FreeStyle #100 ea 11/29/23 Lite Strips) blood-glucose meter (FreeStyle #1 ea 11/29/23 Lite Meter kit) insulin lispro 100 unit/mL See Rx Instructions .Route 11/29/23 subcutaneous pen (Humalog KwikPen .COMPLEX #15 mL (U-100) Insulin) lancets 28 gauge (FreeStyle #100 ea 11/29/23 Lancets) lisinopril 5 mg tablet 5 mg PO DAILY 60 days #60 tabs 11/29/23 pen needle, diabetic 32 gauge x #100 ea 11/29/23 1/4 insulin glargine 100 unit/mL 20 unit (0.2 mL) subcut DAILY #10 02/26/24 subcutaneous solution (Lantus mL U-100 Insulin) potassium chloride 20 mEq 20 meq PO DAILY #7 tabs 02/26/24 tablet,extended release(part/cryst) methadone 10 mg/mL oral 95 mg (9.5 mL) PO DAILY #30 mL 03/04/24 concentrate (Methadose) vancomycin 1 gram/250 mL in 0.9 % 1 g (250 mL) IV Q12H 03/04/24 sodium chloride intravenous Allergies Allergy/AdvReac Type Severity Reaction Status Date / Time No Known Allergies Allergy Verified 05/15/24 15:03 [facility] Past Medical History Medical History Sepsis PCOS (polycystic ovarian syndrome) Rash Polysubstance (excluding opioids) dependence, daily use Methadone maintenance therapy patient Anxiety and depression Diabetes Social History Social History Household Members: Other Household Members Other:: daughter Housing: Apartment Do you presently have visiting nurse or other home services: No Alcohol intake: current Alcohol intake frequency: does not drink Patient Tobacco Use Status: Former Tobacco user Tobacco use type: Cigarette Cigarette Packs Per Day: 3 Cigarettes Per Day: 60.0 Years Smoked: 2 e-Cigarette/Vaping Use: Never Used Substance Use Type: Heroin and Marijuana Advance Directives: Yes Advance Directives on File: Yes Advance Directives Date on File: 01/11/22 Do you have a plan to hurt others: No Plan service: No Current occupational status: unemployed Physical Exam ED Vital Signs: Vital Signs - 24 hr 05/15/24 15:01 Temperature 98.7 F Pulse Rate 71 Respiratory Rate 73 H Blood Pressure 173/128 H Pulse Oximetry 98 Oxygen Delivery Method Room Air BMI result Body Mass Index 39.2 Course Course Course Narrative: RME: [employer]One by Kwesi Davis. 39-year-old female presents to ED for medication refill. Patient states been out of her diabetes and hypertensive meds for 1 month. Patient states knee three-month supply. Patient states feeling crampy such as mild abdominal cramping, fatigue, and thirst. Patient was informed before we fill out her med she will need at least a medical workup blood POC to make sure there is no kidney issues injury, or DKA. Labs ordered Discharge Plan Discharge Clinical Impression: Acute hyperglycemia, Medicine refill Patient Disposition: Left W/O Completing Treatment Prescriptions: No Action (DME) FreeStyle Lite Strips Strip Qty: 100 0RF Rx Instructions: Test four times a day or as directed. (DME) FreeStyle Lite Strips Strip Qty: 100 0RF Rx Instructions: Test four times a day or as directed. (DME) blood-glucose meter [FreeStyle Lite Meter] Kit Qty: 1 0RF Rx Instructions: As Directed insulin lispro [Humalog KwikPen Insulin] 100 unit/mL insulin pen See Rx Instructions .ROUTE .COMPLEX MDD 30 Qty: 15 0RF Rx Instructions: Blood Sugar: <150 - 0 units 151-200 - 2 units 201-250 - 4 units 251-300 - 6 units 301-350 - 8 units >350 - 10 units (DME) pen needle, diabetic 32 gauge x 1/4 needle Qty: 100 0RF Rx Instructions: Use four times a day or as directed. (DME) lancets [FreeStyle Lancets] 28 gauge misc Qty: 100 0RF Rx Instructions: Test four times a day or as directed. amlodipine 5 mg tablet 7.5 mg PO DAILY 60 Days Qty: 90 0RF lisinopril 5 mg tablet 5 mg PO DAILY 60 Days Qty: 60 0RF potassium chloride 20 mEq Tablet,Er Particles/Crystals 20 meq PO DAILY Qty: 7 0RF insulin glargine [Lantus U-100 Insulin] 100 unit/mL Solution 20 unit subcut DAILY Qty: 10 0RF methadone [Methadose] 10 mg/mL Concentrate 95 mg PO DAILY Qty: 30 0RF Rx Instructions: Partial Fill upon patient request. vancomycin in 0.9 % sodium chl 1 gram/250 mL solution 1 g IV Q12H Discharge Date/Time: 05/15/24 17:03
== END 2024-05-15 17:03 | disposition left against medical advice (07) ==
LOC: HO.ED 16:31
PROVIDERS: Emergency Provider Emergency Medicine
DX: E11.65 Type 2 diabetes mellitus with hyperglycemia (principal); Z79.899 Other long term (current) drug therapy; Z76.0 Encounter for issue of repeat prescription
CPT/HCPCS: 99281

== ENCOUNTER 2024-07-02 23:07 | Inpatient (IN) | payer OTHER, SELFPAY ==
--- NOTE | ~2024-07-02 | MR_ITS ---
EXAMINATION: MR FOOT WITHOUT AND WITH CONTRAST, RIGHT CLINICAL INFORMATION: Right great toe osteomyelitis. Swelling. Chronic ulcer and erythema. COMPARISON: Right toe radiographs dated 07/03/2024. TECHNIQUE: MRI of the right foot was performed before and after the intravenous administration of 10 mL Gadavist on a high-field scanner. FINDINGS: Soft tissue ulceration along the plantar aspect of the 1st interphalangeal joint with skin thickening, subcutaneous edema, and postcontrast enhancement, consistent with cellulitis. No organized fluid collection or abscess formation. There appears to be fistulization through the skin to the level of the interphalangeal joint, where there is a moderate joint effusion with prominent synovial enhancement. Significant increased T2 and decreased T1 signal within the proximal and distal phalanges, adjacent to the interphalangeal joint, with prominent postcontrast enhancement. Findings are consistent with acute osteomyelitis and septic arthritis. No additional osseous abnormality. No metatarsal stress reaction or fracture. Intact articular cartilage. The visualized flexor and extensor tendons are intact. No transverse tendon tear or tendon retraction. Edema within the intrinsic musculature of the foot, which can be seen in diabetic patients. Intact Lisfranc ligament. MR/MR foot RT wo/w con IMPRESSION: 1. Soft tissue ulceration and cellulitis along the plantar aspect of the 1st interphalangeal joint, with probable fistulization through the skin to the level of the interphalangeal joint, where there is a moderate joint effusion and prominent synovial enhancement. Findings are consistent with acute osteomyelitis and septic arthritis. 2. Edema within the intrinsic muscles of the foot, which can be seen in diabetic patients. Electronically signed by: Rock Caldwell MD 07/05/2024 09:23 PM EDT
--- NOTE | ~2024-07-02 | US_ITS ---
EXAMINATION: US NONINVASIVE ASSESSMENT OF THE RIGHT LOWER EXTREMITY WITH ARTERIAL DUPLEX AND ANKLE BRACHIAL INDICES (ABIS) CLINICAL INFORMATION: Right first toe osteomyelitis COMPARISON: None available. TECHNIQUE: Duplex Doppler techniques with waveform analysis and measurement of velocities in the common femoral, profunda femoris, superficial femoral, popliteal and tibial arteries were performed. FINDINGS: RIGHT LOWER EXTREMITY DUPLEX ULTRASOUND: Common femoral artery: 134 cm/s. Diastolic flow reversal: Triphasic Profunda femoris artery: 73.3 cm/s. Diastolic flow reversal: Triphasic Superficial femoral artery (proximal): 137 cm/s. Diastolic flow reversal: Triphasic Superficial femoral artery (mid): 160 cm/s. Diastolic flow reversal: Triphasic Superficial femoral artery (distal): 132 cm/s. Diastolic flow reversal: Triphasic Popliteal artery: 106 cm/s Diastolic flow reversal: Triphasic Posterior tibial artery: 155 cm/s Diastolic flow reversal: Triphasic Peroneal artery: 80.1 cm/s Phasicity: Triphasic Anterior tibial artery: 167 cm/s Phasicity: Triphasic Dorsalis pedis artery: 101 cm/s Phasicity: Triphasic US/US arterial duplex LE RT IMPRESSION: Widely patent arterial flow throughout the right lower extremity Electronically signed by: Marcelino Ibarra MD 07/03/2024 04:36 PM EDT
--- NOTE | ~2024-07-02 | XR_ITS ---
EXAMINATION: XR TOES, RIGHT CLINICAL INFORMATION: Swelling. Chronic ulcer and erythema. COMPARISON: None available. TECHNIQUE: 3 view series of the right first metatarsal ray. FINDINGS: Soft tissue prominence of the great toe is present. No soft tissue emphysematous changes noted. Focal cortical irregularity and osteolysis is present within the lateral aspect of the distal portion of the first proximal phalanx. No fracture is identified. No arthropathic changes noted. XR/XR toe RT min 2V IMPRESSION: *Soft tissue inflammatory changes of the great toe. *Focal cortical osteolysis of the lateral, distal aspect of the first proximal phalanx. Findings are suspicious for osteomyelitis. See crum image. Electronically signed by: Nahum Montgomery MD 07/03/2024 01:44 AM EDT
[2024-07-02 23:20] VITALS: BP 184/81; BP 218/105; PULSE 71; PULSE 78; RESP 20; TEMP 36.8; O2SAT 97; BMI 40.7
[2024-07-02 23:32] VITALS: BP 184/81; PULSE 75; RESP 18; O2SAT 99
[2024-07-03] VITALS (10 sets, daily range): BP systolic 155–198; BP diastolic 81–101; PULSE 69–81; RESP 15–18; TEMP 36.5–37.2; O2SAT 94–98
--- NOTE | 2024-07-03 | ECG_ITS ---
Test Reason : MULTIPLE QT PROLONGING MEDS Blood Pressure : / mmHG Vent. Rate : 073 BPM Atrial Rate : 073 BPM P-R Int : 120 ms QRS Dur : 098 ms QT Int : 414 ms P-R-T Axes : 025 -11 010 degrees QTc Int : 456 ms Normal sinus rhythm Normal ECG When compared with ECG of 21-FEB-2024 01:11, Vent. rate has decreased BY 36 BPM Referred By: Yoon Guy Electronically Signed By:LASHANDA CHAVEZ
[2024-07-03 00:04] LABS: MANUAL DIFF FLAG NO
[2024-07-03 00:06] LABS: Basophils Percent Auto 0.3 % (0-2); Eosinophils Percent Auto 0.1 % (0-4); Hematocrit 36.6 % (37.0-47.0); Hemoglobin 12.1 g/dl (12.0-16.0); Imm Gran Abs Auto 0.09 X10*3/uL (0.00-0.03); Imm Gran Pct Auto 0.6 % (0.0-0.4); Lymphocytes Absolute Auto 1.1 X10*3/uL (1.2-4.9); Mean Corpuscular HGB Conc 33.1 g/dl (31.0-35.0); Mean Corpuscular Volume 75.6 fL (80.0-98.0); Mean Platelet Volume 8.6 fL (9.4-12.3); Monocytes Absolute Auto 0.4 X10*3/uL (0.1-1.2); Monocytes Percent Auto 2.9 % (2-11); Neutrophils Absolute Auto 13.4 x10*3/uL (2.0-8.3); Neutrophils Percent Auto 89.1 % (45-73); Platelet Count 473 X10*3/uL (160-400); Red Blood Count 4.84 X10*6/uL (4.20-5.50); Red Cell Distribution Width 13.2 % (11.0-16.0)
[2024-07-03 00:20] LABS: Lactic Acid 1.3 mmol/L (0.5-2.0)
[2024-07-03 00:29] LABS: Alanine Aminotransferase 7 U/L (0-31); Albumin Level 3.5 g/dL (3.5-5.0); Alkaline Phosphatase 105 U/L (39-117); Anion Gap 19 (12-20); Aspartate Amino Transferase 16 U/L (5-31); Bilirubin Total 0.5 mg/dL (0.0-1.0); Blood Urea Nitrogen 12 mg/dL (9-16); Calcium 9.1 mg/dL (8.4-10.2); Carbon Dioxide 22 mmol/L (22-29); Chloride 96 mmol/L (96-108); Creatinine Clr Calc Pharmacy 110.2; Estimated Glomerular Filt Rate > 60; Glucose Fasting 395 mg/dL (60-99); Sodium 133 mmol/L (135-145); Total Protein 9.2 g/dL (6.5-8.0)
--- NOTE | 2024-07-03 00:32 | ED.GENADULT ---
HPI - General Adult General Chief complaint: General Medical Stated complaint: VOMITING, R BIG TOE INFECTION, BP *218/105 Time Seen by Provider: 07/03/24 00:18 Source: patient Mode of arrival: ambulatory Limitations: no limitations History of Present Illness ED Provider: Dr. 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 patient has a history of gastroparesis. Related Data Previous Rx's ?Medication ?Instructions ?Recorded blood sugar diagnostic (FreeStyle #100 ea 02/14/23 Lite Strips) amlodipine 5 mg tablet 7.5 mg (1.5 x 5 mg) PO DAILY 60 11/29/23 days #90 tabs blood sugar diagnostic (FreeStyle #100 ea 11/29/23 Lite Strips) blood-glucose meter (FreeStyle #1 ea 11/29/23 Lite Meter kit) insulin lispro 100 unit/mL See Rx Instructions .Route 11/29/23 subcutaneous pen (Humalog KwikPen .COMPLEX #15 mL (U-100) Insulin) lancets 28 gauge (FreeStyle #100 ea 11/29/23 Lancets) lisinopril 5 mg tablet 5 mg PO DAILY 60 days #60 tabs 11/29/23 pen needle, diabetic 32 gauge x #100 ea 11/29/23 1/4 insulin glargine 100 unit/mL 20 unit (0.2 mL) subcut DAILY #10 02/26/24 subcutaneous solution (Lantus mL U-100 Insulin) potassium chloride 20 mEq 20 meq PO DAILY #7 tabs 02/26/24 tablet,extended release(part/cryst) methadone 10 mg/mL oral 95 mg (9.5 mL) PO DAILY #30 mL 03/04/24 concentrate (Methadose) vancomycin 1 gram/250 mL in 0.9 % 1 g (250 mL) IV Q12H 03/04/24 sodium chloride intravenous Allergies Allergy/AdvReac Type Severity Reaction Status Date / Time No Known Allergies Allergy Verified 07/02/24 23:27 Review of Systems Review of Systems: Yes all other systems are reviewed and are negative Neurologic: Denies Sensory deficit (Neuro) PMFSH Past Medical History Medical History Depression Opioid use disorder Hypertension Sepsis PCOS (polycystic ovarian syndrome) Rash Polysubstance (excluding opioids) dependence, daily use Methadone maintenance therapy patient Anxiety and depression Diabetes Social History Social History Household Members: Other Household Members Other:: daughter Housing: Apartment Do you presently have visiting nurse or other home services: No Alcohol intake: current Alcohol intake frequency: does not drink Patient Tobacco Use Status: Former Tobacco user Tobacco use type: Cigarette Cigarette Packs Per Day: 3 Cigarettes Per Day: 60.0 Years Smoked: 2 Smoked in Last 30 Days: No e-Cigarette/Vaping Use: Never Used Use of substances other than those prescribed or required for medical reasons: Yes Substance Use Type: Marijuana Substance Use Frequency: Chronic Longstanding Advance Directives: Yes Advance Directives on File: Yes Advance Directives Date on File: 01/11/22 Do you have a plan to hurt others: No Plan service: No Current occupational status: unemployed Physical Exam ED Vital Signs: Vital Signs - 24 hr 07/02/24 23:20 07/02/24 23:32 Temperature 98.3 F Pulse Rate 71 75 Respiratory Rate 20 18 Blood Pressure 184/81 H 184/81 H Pulse Oximetry 97 99 Oxygen Delivery Method Room Air BMI result Body Mass Index 40.7 Const Other: obese female, chronically ill, looking older than stated age Orientation/consciousness: oriented to person and patient oriented x3 Limitations: no limitations HENMT Head: Yes normal to inspection Ears: external ears normal General nose exam: Normal external nose present Mouth: Normal oral and palatal mucosa present and oropharynx normal Throat: Yes posterior oropharynx normal Eyes General: appearance normal, both eyes and all related structures Neck Neck: Yes normal visual inspection Chest Chest palpation & inspection: normal inspection of the chest Resp Auscultation: clear to auscultation bilaterally Cardio Jugular venous distension: no JVD Rate: regular rate Rhythm: regular rhythm Heart sounds: S1 normal heart sound present and S2 normal heart sound present GI Inspection: Yes normal to inspection Palpation (GI): Soft to palpation, nontender and No hepatosplenomegaly present Auscultation: normal bowel sounds General: Yes no CVA tenderness Back/Spine/Pelvis Back: no CVA tenderness Skin Other: left arm with chronic ulceration from IVDU Neuro General: oriented to person and patient oriented x3 Cranial nerves: Yes CN's II-XII intact bilaterally Motor exam (neuro): 5/5 motor strength present throughout Sensory Exam: No Sensory deficit (Neuro) Extrem Other: right toe with swelling, erythema and ulceration at the base of the toe on the plantar surface, no discharge Psych Appearance: grossly normal Course Reevaluation(s) Reevaluation #1: Patient with elevated sed rate and CRP, xray with changes consistent with osteo, patient still vomiting Time: 02:11 Medications Administered Generic Name Dose Route Start Last Admin Trade Name Freq PRN Reason Stop Dose Admin Sodium Chloride 1,000 mls @ 250 mls/hr 07/03/24 00:30 07/03/24 00:46 Ns IVCONT 07/03/24 04:29 250 mls/hr .Q4H NASH Administration Ampicillin Sodium/Sulbactam 100 mls @ 200 mls/hr 07/03/24 02:11 07/03/24 02:23 Sodium 3 gm/ Sodium Chloride IV 07/03/24 02:40 200 mls/hr ONCE ONE Administration Discontinued Medications Generic Name Dose Route Start Last Admin Trade Name Freq PRN Reason Stop Dose Admin Vancomycin HCl 1,500 mg/ 500 mls @ 333.333 mls/hr 07/03/24 00:29 07/03/24 02:21 Sodium Chloride IV 07/03/24 01:58 Infused ONCE ONE Infusion Insulin Human Lispro 8 unit 07/03/24 00:29 07/03/24 00:45 Insulin Lispro 100 Unit/Ml 3 Ml Vial SUBCUT 07/03/24 00:30 8 unit ONCE ONE Administration Ondansetron HCl 4 mg 07/03/24 00:29 07/03/24 00:45 Ondansetron Hcl 4 Mg/2 Ml Vial IVPUSH 07/03/24 00:30 4 mg ONCE ONE Administration Ondansetron HCl 4 mg 07/03/24 02:02 07/03/24 02:10 Ondansetron Hcl 4 Mg/2 Ml Vial IVPUSH 07/03/24 02:03 4 mg ONCE ONE Administration Medical Decision Making Lab Data 07/02/24 23:57 07/02/24 23:57 Labs: Lab Results 07/02/24 Range/Units 23:57 WBC 15.0 H (4.8-10.8) X10*3/uL RBC 4.84 (4.20-5.50) X10*6/uL Hgb 12.1 (12.0-16.0) g/dl Hct 36.6 L (37.0-47.0) % MCV 75.6 L (80.0-98.0) fL MCH 25.0 L (27.0-33.0) pg MCHC 33.1 (31.0-35.0) g/dl RDW 13.2 (11.0-16.0) % Plt Count 473 H D (160-400) X10*3/uL MPV 8.6 L (9.4-12.3) fL Immature Gran % (Auto) 0.6 H (0.0-0.4) % Neut % (Auto) 89.1 H (45-73) % Lymph % (Auto) 7.0 L (20-40) % [place] % (Auto) 2.9 (2-11) % Eos % (Auto) 0.1 (0-4) % Baso % (Auto) 0.3 (0-2) % Lymph # (Auto) 1.1 L (1.2-4.9) X10*3/uL [place] # (Auto) 0.4 (0.1-1.2) X10*3/uL Eos # (Auto) 0.0 (0.0-0.4) X10*3/uL Baso # (Auto) 0.0 (0.0-0.2) X10*3/uL Abs Immat Gran (auto) 0.09 H (0.00-0.03) X10*3/uL Absolute Neuts (auto) 13.4 H (2.0-8.3) x10*3/uL Absolute Nucleated RBC 0.000 (0.0-0.012) X10*3/uL Nucleated RBC % (auto) 0.0 (0.0-0.2) /100WBC ESR 77 H (0-20) MM/HR Sodium 133 L (135-145) mmol/L Potassium 4.0 (3.3-5.1) mmol/L Chloride 96 (96-108) mmol/L Carbon Dioxide 22 (22-29) mmol/L Anion Gap 19 (12-20) BUN 12 (9-16) mg/dL Creatinine 0.95 (0.5-1.4) mg/dL Estim Creat Clear Calc 110.2 Estimated GFR > 60 Fasting Glucose 395 H* (60-99) mg/dL Lactic Acid 1.3 (0.5-2.0) mmol/L Calcium 9.1 (8.4-10.2) mg/dL Total Bilirubin 0.5 (0.0-1.0) mg/dL AST 16 (5-31) U/L ALT 7 (0-31) U/L Alkaline Phosphatase 105 (39-117) U/L C-Reactive Protein 7.65 H (< or = 0.50) mg/dL Total Protein 9.2 H (6.5-8.0) g/dL Albumin 3.5 (3.5-5.0) g/dL Discharge Plan Discharge Clinical Impression: Cyclic vomiting syndrome, Osteomyelitis Patient Disposition: Admitted As Inpatient Print Language: Sammarinese
[2024-07-03] MEDS: Insulin Lispro 100 UNIT/ML 3 ML VIAL 8 UNIT SUBCUT (00:45)
[2024-07-03] MEDS: vancomycin HCL 1,500 MG in 0.9 % Sodium Chloride 500 ML 333.33 MG IV (00:45)
[2024-07-03] MEDS: ondansetron HCL 4 MG/2 ML VIAL IVPUSH ×5 (00:45→19:47)
[2024-07-03] MEDS: 0.9 % Sodium Chloride 1,000 ML 250 ML IVCONT (00:46)
[2024-07-03 01:11] LABS: C Reactive Protein 7.65 mg/dL (< or = 0.50); Erythrocyte Sedimentation Rate 77 MM/HR (0-20)
[2024-07-03] MEDS: Ampicillin Sodium/Sulbactam Na 3 GM in 0.9 % Sodium Chloride 100 ML IV (02:23)
[2024-07-03 05:13] LABS: Glucose, Whole Blood 336 mg/dL (60-115)
--- NOTE | 2024-07-03 06:07 | PC.NURSE ---
Pt up and ambulating to bathroom with steady gait, no acute distress.
--- NOTE | 2024-07-03 08:56 | PM.IMHP ---
History of Present Illness Date of Service: 07/03/24 Attending physician on admission: Anthony Greenwood Chief Complaint: nausea, vomiting, R great toe infection Patient is a 39-year-old female with a past medical history significant for insulin-dependent diabetes, IV drug use, chronic left arm ulcer, gastroparesis, hypertension, obesity and PCOS who presented to the ED last night with severe nausea vomiting and right great toe infection. She reports that she has been without her medications for blood pressure and diabetes since April due to lack of PCP. She has been vomiting severely since yesterday, bilious without any hematemesis. She also has generalized abdominal pain and heartburn. She denies any sick contacts or any upper respiratory symptoms including headache, runny nose, congestion, sore throat. No chest pain, shortness of breath or visual changes. She reports that she has had this toe infection for the past week. She does inject heroin, last use was yesterday, also on methadone. Review of Systems Constitutional: Constitutional: Denies chills, Denies fatigue, Denies fever(s) and Denies headache(s) Eyes: Eyes: Denies blurry vision and Denies change in vision ENT: Denies headache(s), Denies nasal congestion, Denies nasal discharge and Denies sore throat Cardiovascular: Cardiovascular: Denies chest pain, Denies rapid heart rate, Denies leg edema, Denies lightheadedness and Denies dyspnea Respiratory: Respiratory: Denies cough and Denies dyspnea Gastrointestinal: Gastrointestinal: Denies coffee ground emesis, Reports heartburn, Reports nausea, Reports vomiting and Denies hematemesis Genitourinary: Genitourinary: Denies dysuria and Denies urinary urgency Musculoskeletal: Musculoskeletal: Denies myalgias Integumentary/Breasts: Skin/Breast: Reports as per HPI Neurologic: Denies confusion, Denies headache(s) and Denies memory loss Psychiatric: Psychiatric: Denies confusion and Denies memory loss Endocrine: Endocrine: Denies fatigue [facility] Medical History (Updated 07/03/24 @ 10:08 by Yoon Guy PA-C) Opioid use disorder Hypertension Sepsis Depression PCOS (polycystic ovarian syndrome) Rash Polysubstance (excluding opioids) dependence, daily use Methadone maintenance therapy patient Anxiety and depression Diabetes Functional capacity: independent ambulation Social History Household Members: Other Household Members Other:: daughter Housing: Apartment Do you presently have visiting nurse or other home services: No Alcohol intake: current Alcohol intake frequency: does not drink Patient Tobacco Use Status: Former Tobacco user Tobacco use type: Cigarette Cigarette Packs Per Day: 3 Cigarettes Per Day: 60.0 Years Smoked: 2 Smoked in Last 30 Days: No e-Cigarette/Vaping Use: Never Used Use of substances other than those prescribed or required for medical reasons: Yes Substance Use Type: Marijuana Substance Use Frequency: Chronic Longstanding Advance Directives: Yes Advance Directives on File: Yes Advance Directives Date on File: 01/11/22 Do you have a plan to hurt others: No Plan service: No Current occupational status: unemployed Narrative: IVDU - heroin, last used yesterday Meds Allergies Allergy/AdvReac Type Severity Reaction Status Date / Time No Known Allergies Allergy Verified 07/02/24 23:27 Home Medications ?Medication ?Instructions ?Recorded ?Confirmed ?Last Taken ?Type methadone 10 mg/mL oral concentrate 120 mg PO DAILY 07/03/24 07/03/24 07/01/24 History Physical Exam Vital Signs and Narrative: Vital Signs: Last Vital Signs Temp 98.3 F 07/03/24 08:23 Pulse 79 07/03/24 08:23 Resp 16 07/03/24 08:23 BP 185/84 H 07/03/24 08:23 Pulse Ox 98 07/03/24 08:23 O2 Del Method Room Air 07/03/24 08:23 BMI result Body Mass Index 40.7 General: AOx3, laying on side, vomiting, short responses due to nausea/vomiting Resp: CTA bilaterally CVS: S1, S2, RRR GI: +BS, NT, no distention Skin: Warm, dry Extremities: No edema. R great toe with erythema/pus in intertarsal space, ulceration at the base of the toe on the plantar surface without discharge. Chronic left arm wound, does not appear infected. Psych: Appropriate affect Const: General: No confusion Orientation/consciousness: No confusion Neuro: General: No confusion Results Labs 07/02/24 23:57 07/02/24 23:57 Labs: Laboratory Results - last 24 hr 07/02/24 07/03/24 23:57 05:06 MCV 75.6 L MCH 25.0 L MCHC 33.1 RDW 13.2 Plt Count 473 H D MPV 8.6 L Immature Gran % (Auto) 0.6 H Neut % (Auto) 89.1 H Lymph % (Auto) 7.0 L [place] % (Auto) 2.9 Eos % (Auto) 0.1 Baso % (Auto) 0.3 Lymph # (Auto) 1.1 L [place] # (Auto) 0.4 Eos # (Auto) 0.0 Baso # (Auto) 0.0 Abs Immat Gran (auto) 0.09 H Absolute Neuts (auto) 13.4 H Absolute Nucleated RBC 0.000 Nucleated RBC % (auto) 0.0 ESR 77 H Anion Gap 19 Estim Creat Clear Calc 110.2 Estimated GFR > 60 POC Glucose 336 H Fasting Glucose 395 H* Lactic Acid 1.3 Calcium 9.1 Total Bilirubin 0.5 AST 16 ALT 7 Alkaline Phosphatase 105 C-Reactive Protein 7.65 H Total Protein 9.2 H Albumin 3.5 Imaging Radiologist's Impressions: Impressions Toe X-Ray 07/03/24 00:29 IMPRESSION: *Soft tissue inflammatory changes of the great toe. *Focal cortical osteolysis of the lateral, distal aspect of the first proximal phalanx. Findings are suspicious for osteomyelitis. See crum image. Electronically signed by: Nahmu Montgomery MD 07/03/2024 01:44 AM EDT RP Assessment and Plan (1) Sepsis: Status: Acute (2) Osteomyelitis: Status: Acute (3) Intractable nausea and vomiting: Status: Acute (4) Gastroparesis: Status: Acute (5) Diabetes: Status: Acute (6) Morbid obesity: Status: Acute (7) Methadone maintenance therapy patient: Status: Acute (8) Opioid use disorder: Status: Acute (9) Hypertension: Qualifiers: Hypertension type: primary hypertension Qualified Code(s): I10 - Essential (primary) hypertension Status: Acute Plan Patient is a 39-year-old female with a past medical history significant for insulin-dependent diabetes, IV drug use, chronic left arm ulcer, gastroparesis, hypertension, obesity and PCOS who presented to the ED last night with severe nausea vomiting and right great toe infection. She has been without her insulin for the past 3 months. She has a known diagnosis of gastroparesis, likely exacerbated due to poor diabetic control. New osteomyelitis right great toe, no previous history. Recently admissions for MSSA bacteremia, perirectal abscess and DKA (in ICU). Sepsis, non-severe secondary to osteomyelitis right great toe - WBC 15, ESR 77, CRP 7.65 - blood cultures x2 pending, lactate normal - x-ray in ED with soft tissue inflammatory changes in the right great toe, focal lateral distal aspect osteolysis in the 1st proximal phalanx with suspected osteomyelitis - given vancomycin and Augmentin in ED, we will continue vancomycin and add Zosyn - follow CBC, CRP and ESR Nausea and vomiting-likely gastroparesis due to poor diabetic control - Zofran as needed for nausea - calcium carbonate and maalox for heartburn Insulin-dependent diabetes - blood glucose elevated up to 395 - sliding scale insulin - glargine 15 units q.h.s. - diabetic diet HTN - BPs elevated restart lisinopril 5 mg QD - restart amlodipine 7.5 mg QD tomorrow if BPs still elevated Chronic left arm ulcer - appears stable without active infection Morbid obesity - BMI 40 0.7 - weight loss encouraged BRIAN - currently still using - addiction med consult - continue methadone Full code VTE prophylaxis: Lovenox Patient with sepsis secondary to osteomyelitis right great toe and intractable nausea likely secondary to gastroparesis, complicated by poorly-controlled diabetes and hypertension, requiring admission for IV antibiotics for at least 2 midnights stay. Quality Stroke Does the patient have a stroke diagnosis?: No VTE Prior VTE?: No VTE Risk Level:: Medical - moderate - high VTE Device Contraindication: Procedure Contraindicated VTE Drug Contraindication: N/A - Med Ordered
--- NOTE | 2024-07-03 09:13 | PHA.MEDREC ---
Addendum entered by Marlys Noel RPh 07/03/24 09:41: [facility] REVIEW[facility]. CALLED [facility] AND VERIFIED METHADONE DOSE. PATIENT WAS PREVIOUSLY ON LISINOPRIL, AMLODIPINE AND HUMALOG BUT HAS NOT TAKEN IN MONTHS. Original Note: Pharmacy Consult ? Medication Reconciliation Pharmacy has completed the medication reconciliation. Patient confirmed and stated she is not taking any medication (prescription or OTC) and has not taken any medications in months
--- NOTE | 2024-07-03 09:39 | HE.PHANOTE ---
METHADONE VERIFIED WITH [facility] [phone]. SPOKE WITH EARNEST LEA. LAST DOSE OF METHADONE 120 MG ON 07/01/24 @9334.
[2024-07-03] MEDS: Piperacillin Sodium/Tazobactam 3.375 GM in 0.9 % Sodium Chloride 50 ML IV ×3 (09:43→20:57)
[2024-07-03] MEDS: Enoxaparin Sodium 40 MG/0.4 ML SYRINGE SUBCUT (09:45)
[2024-07-03] MEDS: Magnesium Hydrox/Alum Hydrox 30 ML ORAL.SUSP PO (10:02)
[2024-07-03] MEDS: lisinopriL 5 MG TABLET PO (10:02)
[2024-07-03] MEDS: methADONE HCl 20 MG/2 ML ORAL.CONC 120 MG PO (10:04)
[2024-07-03 10:51] LABS: Creatinine Clr Calc Pharmacy 121.7; Estimated Glomerular Filt Rate > 60
--- NOTE | 2024-07-03 11:02 | PHA.PROG ---
Admission Date/Time: July 03, 2024 09:21 Indication: Bone & Joint Weight in k.563 kg Adjusted body weight in K.965 kg Serum Creatinine - Last 168 Hours 07/02/24 07/03/24 23:57 10:31 Creatinine 0.95 0.86 Estimated CrCl and GFR - Last 168 Hours 07/02/24 07/03/24 23:57 10:31 Estim Creat Clear Calc 110.2 121.7 Estimated GFR > 60 > 60 Vancomycin Loading Dose: 1500 mg Current Vancomycin Dosing Regimen: 1,250 mg q12h Vancomycin Monitoring using AUC goal of 400 - 600 range with trough as surrogate marker: 563, predicted trough 16.5 Date and Time for next Vancomycin Level to be drawn: 07/04 @ 1000 Pharmacist Comments on Vancomycin Plan: Vancomycin dosing will take advantage of Gaatu as a clinical decision support tool that uses Bayesian modeling to calculate individual patient's pharmacokinetic parameters and forecast the patient's drug concentration time course with the target goal AUC 24 range of 400 - 600 mg/L/hr.
[2024-07-03] MEDS: vancomycin HCL 1,250 MG in 0.9 % Sodium Chloride 250 ML 166.67 MG IV ×2 (12:11→22:57)
[2024-07-03 13:01] LABS: Glucose, Whole Blood 380 mg/dL (60-115)
[2024-07-03] MEDS: Insulin Lispro 100 UNIT/ML 3 ML VIAL SUBCUT ×3 (13:51→20:55)
--- NOTE | 2024-07-03 14:14 | HO.WOUND ---
Addendum entered by Kayla Longoria RN 07/03/24 14:31: Left Upper Arm Photo from direct care team . Original Note: Wound Consult: Initial 39yr old?female admitted to [facility] on 07/03/24 - See progress notes and H&P for detailed history.? Wound consult placed for Left upper arm wound secondary to IV drug injection site and Right great toe diabetic wound.? Patient agreeable to assessment and photo documentation - patient is known to this radio script writer from previous admissions. Arrival to the bedside the patient was experiencing nausea with active vomiting. Direct care team and provider aware. Left Upper Arm - No photo at the time of my consult today. Etiology: Ulceration - secondary to IVDU Injection site Wound Bed: Dried desiccated wound bed Drainage / Odor: none noted Edges: ? irregular and adherent Anna wound: [place] scar tissue with irregular healing formation Pain: Denies at the time of my assessment Goals of Treatment: ? Moist wound healing with xeroform Right Great Toe Etiology: Diabetic Wounds Wound Bed: medial side of great toe with adherent yellow slough depth of 1.5cm no palpable bone but suspect down to bone level does not communicate directly with plantar wound at this time but suspect may communicate with autolytic debridement of slough / necrotic tissue . Drainage / Odor: mild odor noted - holley drainage Edges: ?unattached Anna wound: [place] red erythema and swelling dry epidermal layer noted. Pain: pain at times reported when packing completed Goals of Treatment: Durafiber AG to lightly pack wound beds and recommend vascular surgery consult. Recommendations: 1. Turn and Reposition every 2 hours and as needed for patient comfort.? Use pillows or wedges to support off loading positions. 2. Off Load all bony prominences with use of pillows and heel boots if needed.? Apply Preventative foams where needed. ? 3. Provide adequate and supplemental nutrition. 4. Maintain blood glucose levels per Providers order. 5. Left Upper Arm - Cleanse with cleanser such as NS or wound cleanser, Pat dry. Apply skin prep to periwound, cover wound bed with xeroform cover with Foam dressing change every other day. Continue to seek topical care and treatment with [facility]. 6. Right Great Toe - Cleanse with NS, Apply skin prep to periwound. Lightly pack both wound bed sites with Durafiber AG cover with dry gauze. Change daily while inpatient. Re-consult wound care Nurse for wound deterioration or wound changes.
--- NOTE | 2024-07-03 14:40 | MHC.RECOVRN ---
Attempted to meet with pt in 361 after consult placed to Addiction Medicine for IV heroin use. Pt had presented to the ED last night with n/v/d and right great toe infection. Upon evaluation, pt admitted for sepsis secondary to osteomyelitis in right great toe and intractable nausea likely secondary to gastroparesis which is all complicated by poorly-controlled diabetes and hypertension. Pt is currently receiving 120 mg methadone daily. Pt laying in bed, eyes closed, appears comfortable, briefly wakes to voice. Pt does not engage in conversation, keeps eyes closed and requests t/w to return at a different time. T/w respects request and will attempt to meet with pt tomorrow. Mraivel Bentley APRN, aware.
[2024-07-03] MEDS: Insulin Lispro 100 UNIT/ML 3 ML VIAL 10 UNIT SUBCUT (14:49)
[2024-07-03] MEDS: 0.9 % Sodium Chloride Flush 3 ML SYRINGE IVFLUSH ×2 (14:50→20:58)
--- NOTE | 2024-07-03 15:07 | P.CONGS_ITS ---
<Statement entered by Jhon Hernandez MD - 07/04/24 09:21> I have seen and evaluated the patient and agree with history, findings, assessment and plan documented by Marleny Delatorre PA-c. Briefly 39-year-old female with history of polysubstance abuse. Concern of right great toe osteomyelitis. Would treat with antibiotics. Arterial testing within normal limits. We can follow up as an outpatient. Thank you for allowing us to assist in her care. History of Present Illness Consult details Consult date: 07/03/24 Narrative: We are consulted today for Misty, a 39-year-old female patient, who presents to the ER with cyclic vomiting and concerns of an infection in her right great toe. She was admitted for IV antibiotics and is currently on Vanco and Zosyn. She denies any injuries to the site and she denies stepping on a nail or any other object. She is a current IV heroin user but did not endorse whether she uses any veins in between her toes. She is also currently a 3 pack per day smoker for the last 20 years. She states she noticed this 1st approximately 1 week ago. She has been having some issues with her diabetes due to not currently having a PCP. She has had multiple admissions for DKA and bacteremia. She states the site is painful and warm. Review of Systems 2 Constitutional: Constitutional: Reports as per HPI and Denies weakness ENT: Reports Normal hearing present and Denies dizziness Cardiovascular: Cardiovascular: Reports as per HPI, Denies chest pain, Denies chest pain at rest, Denies chest pain with activity, Denies dyspnea and Denies dyspnea on exertion Respiratory: Respiratory: Reports as per HPI, Denies cough, Denies dyspnea and Denies dyspnea on exertion Gastrointestinal: Gastrointestinal: Reports as per HPI, Denies abdominal pain, Denies nausea and Denies vomiting Musculoskeletal: Musculoskeletal: Denies numbness Integumentary/Breasts: Skin/Breast: Reports as per HPI, Denies erythema and Denies wounds Neurologic: Reports Normal hearing present, Denies dizziness, Denies numbness, Denies Sensory deficit (Neuro) and Denies weakness Psychiatric: Psychiatric: Reports no additional psychiatric complaints Endocrine: Endocrine: Reports no additional endocrine complaints [facility] Past Medical History Medical History (Updated 07/03/24 @ 15:11 by Marleny Delatorre PA-C) Opioid use disorder Hypertension Sepsis Depression PCOS (polycystic ovarian syndrome) Rash Polysubstance (excluding opioids) dependence, daily use Methadone maintenance therapy patient Anxiety and depression Diabetes Social History Social History Household Members: Children Household Members Other:: daughter Housing: Apartment Do you presently have visiting nurse or other home services: No Alcohol intake: current Alcohol intake frequency: does not drink Patient Tobacco Use Status: Never used Tobacco Tobacco use type: Cigarette Cigarette Packs Per Day: 3 Cigarettes Per Day: 60.0 Years Smoked: 2 Smoked in Last 30 Days: No e-Cigarette/Vaping Use: Never Used Use of substances other than those prescribed or required for medical reasons: Yes Substance Use Type: Heroin and Marijuana Substance Use Frequency: Daily Last Used Substance: Just Prior to Admission Currently Displaying Signs/Symptoms of Drug Intoxication Withdrawal: No Any prior treatment program specific to substance use: No Have you been hit, kicked, punched, or otherwise hurt by someone within the past year? If so, by whom?: No Do you feel safe in your current relationship?: No Is there a partner from a previous relationship who is making you feel unsafe now?: No Are you made to feel afraid or neglected: No Advance Directives: Yes Advance Directives on File: Yes Advance Directives Date on File: 01/11/22 Do you have a plan to hurt others: No Plan Recently lost weight without trying: No Nutrition Risks: No Nutritional Risk Patient : No : No Poor oral hygiene: No service: No Current occupational status: unemployed Meds Allergies Allergy/AdvReac Type Severity Reaction Status Date / Time No Known Allergies Allergy Verified 07/02/24 23:27 Active Medications: Current Medications Acetaminophen (Acetaminophen 325 Mg Tablet) 650 mg PO Q6H PRN PRN Reason: Pain, Mild (Pain Scale 1-3), fever or headache Al Hydroxide/Mg Hydroxide (Magnesium Hydrox/Alum Hydrox 30 Ml Oral.Susp) 30 ml PO Q6H PRN PRN Reason: Heartburn Last Admin: 07/03/24 10:02 Dose: 30 ml Calcium Carbonate (Calcium Carbonate 750 Mg Tab.Chew) 750 mg PO Q4H PRN PRN Reason: Heartburn Enoxaparin Sodium (Enoxaparin Sodium 40 Mg/0.4 Ml Syringe) 40 mg SUBCUT Q24H [facility] Last Admin: 07/03/24 09:45 Dose: 40 mg Glucose (Glucose Gel 15 Gm Gel..Gram.) 15 gm PO Q15M PRN; Protocol PRN Reason: per Hypoglycemia Standing Ord. Dextrose (D10) 250 mls @ 750 mls/hr IV Q15M PRN; Protocol PRN Reason: per Hypoglycemia Standing Ord. Piperacillin Sod/Tazobactam (Sod 3.375 gm/ Sodium Chloride) 50 mls @ 100 mls/hr IV Q6H [facility] Last Admin: 07/03/24 14:49 Dose: 100 mls/hr Vancomycin HCl 1,250 mg/ (Sodium Chloride) 250 mls @ 166.667 mls/hr IV Q12H [facility] Last Infusion: 07/03/24 14:02 Dose: Infused Insulin Glargine (Insulin Glargine,Hum.Rec.Anlog 100 Unit/Ml 10 Ml Vial) 15 unit SUBCUT BEDTIME [facility] Insulin Human Lispro (Insulin Lispro 100 Unit/Ml 3 Ml Vial) 0 unit SUBCUT QIDACHS [facility]; Protocol Last Admin: 07/03/24 13:51 Dose: 10 unit Lisinopril (Lisinopril 5 Mg Tablet) 5 mg PO DAILY [facility]; Protocol Last Admin: 07/03/24 10:02 Dose: 5 mg Magnesium Hydroxide (Milk Of Magnesia 30 Ml Oral.Susp) 30 ml PO DAILY PRN PRN Reason: Constipation Melatonin (Melatonin 3 Mg Tablet) 6 mg PO BEDTIME PRN PRN Reason: Insomnia Methadone HCl (Methadone Hcl 20 Mg/2 Ml Oral.Conc) 120 mg PO DAILY [facility] Last Admin: 07/03/24 10:04 Dose: 120 mg Ondansetron HCl (Ondansetron Hcl 4 Mg/2 Ml Vial) 4 mg IVPUSH Q4H PRN PRN Reason: Nausea and Vomiting Pharmacy Consult (Consult Rx Vancomycin Dosing) 1 each MISCELLANE DAILY PRN PRN Reason: Consult order Sodium Chloride (0.9 % Sodium Chloride Flush 3 Ml Syringe) [facility] Last Admin: 07/03/24 14:50 Dose: 3 ml Home Medications ?Medication ?Instructions ?Recorded ?Confirmed ?Last Taken ?Type methadone 10 mg/mL oral concentrate 120 mg PO DAILY 07/03/24 07/03/24 07/01/24 History Physical Exam 2 Vital Signs: Vital Signs: Last Vital Signs Temp 98.0 F 07/03/24 13:15 Pulse 79 07/03/24 13:15 Resp 18 07/03/24 13:15 BP 177/81 H 07/03/24 13:15 Pulse Ox 96 07/03/24 13:15 O2 Del Method Room Air 07/03/24 13:15 BMI result Body Mass Index 40.7 Const: General: comfortable and no acute distress O rientation/consciousness: patient oriented x3 HEENT: Ears: hearing grossly normal bilaterally Resp: Effort & Inspection: normal respiratory effort and able to speak in complete sentences Auscultation: clear to auscultation bilaterally Cardio: Rate: regular rate Rhythm: regular rhythm Heart sounds: S1 normal heart sound present and S2 normal heart sound present Bruits: no abdominal aortic bruits, no carotid bruits, no femoral bruits and no renal bruits GI: Palpation (GI): No Abdominal aortic bruit present Skin: Other: Bruises noted in the AC area. Neuro: General: patient oriented x3 Cranial nerves: Yes Normal hearing present Sensory Exam: No Sensory deficit (Neuro) Extrem: Other: R1 toe: Wrapped in Kerlix. Nurse states there is a wound on the posterior aspect of the R1 toe and there appears to be a tunnel towards the front of the toe. There is erythema surrounding the whole toe to the base of the toe. Warm to the touch. Strong and palpable DP and PT pulses. Results Labs 07/02/24 23:57 07/03/24 10:31 Labs: Abnormal lab results 07/02/24 07/03/24 07/03/24 Range/Units 23:57 05:06 12:57 WBC 15.0 H (4.8-10.8) X10*3/uL Hct 36.6 L (37.0-47.0) % MCV 75.6 L (80.0-98.0) fL MCH 25.0 L (27.0-33.0) pg Plt Count 473 H D (160-400) X10*3/uL MPV 8.6 L (9.4-12.3) fL Immature Gran % (Auto) 0.6 H (0.0-0.4) % Neut % (Auto) 89.1 H (45-73) % Lymph % (Auto) 7.0 L (20-40) % Lymph # (Auto) 1.1 L (1.2-4.9) X10*3/uL Abs Immat Gran (auto) 0.09 H (0.00-0.03) X10*3/uL Absolute Neuts (auto) 13.4 H (2.0-8.3) x10*3/uL ESR 77 H (0-20) MM/HR Sodium 133 L (135-145) mmol/L POC Glucose 336 H 380 H* (60-115) mg/dL Fasting Glucose 395 H* (60-99) mg/dL C-Reactive Protein 7.65 H (< or = 0.50) mg/dL Total Protein 9.2 H (6.5-8.0) g/dL Short CBC 07/02/24 Range/Units 23:57 WBC 15.0 H (4.8-10.8) X10*3/uL Hgb 12.1 (12.0-16.0) g/dl Hct 36.6 L (37.0-47.0) % Plt Count 473 H D (160-400) X10*3/uL BMP 07/02/24 07/03/24 23:57 10:31 Sodium 133 L Potassium 4.0 Chloride 96 Carbon Dioxide 22 BUN 12 Creatinine 0.95 0.86 Calcium 9.1 Liver Function 07/02/24 Range/Units 23:57 Total Bilirubin 0.5 (0.0-1.0) mg/dL AST 16 (5-31) U/L ALT 7 (0-31) U/L Alkaline Phosphatase 105 (39-117) U/L Albumin 3.5 (3.5-5.0) g/dL All other labs normal. Assessment and Plan (1) Osteomyelitis: Qualifiers: Osteomyelitis type: other acute Osteomyelitis location: foot L aterality: right Qualified Code(s): M86.171 - Other acute osteomyelitis, right ankle and foot Status: Acute Plan We are consulted today for Misty, a 39yo female, admitted for osteomyelitis of the R1 toe. She is also having hyperglycemia and has had multiple admissions for DKA and bacteremia. The patient was found to have osteomyelitis on x-ray. She has a MRI that was just performed, is not read yet. Her toe is wrapped in Kerlix. She will continue with IV Vanco and Zosyn. We have ordered an arterial duplex ultrasound for the right leg. We will wait for the results. We will continue to monitor. Thank you for the consult. If there are any more questions or or concerns, please do not hesitate to reach out to us. There is no acute surgical intervention needed at this time. Procedures Date of Service Date of Service: 07/03/24
[2024-07-03 16:22] LABS: Glucose, Whole Blood 308 mg/dL (60-115)
[2024-07-03 20:26] LABS: Glucose, Whole Blood 257 mg/dL (60-115)
[2024-07-03] MEDS: Insulin Glargine,Hum.rec.anlog 100 UNIT/ML 10 ML VIAL 15 UNIT SUBCUT (20:55)
[2024-07-04] MEDS: ondansetron HCL 4 MG/2 ML VIAL IVPUSH ×3 (00:34→12:04)
[2024-07-04 00:45] VITALS: BP 169/87
[2024-07-04 03:08] VITALS: BP 190/98; PULSE 73; RESP 18; TEMP 36.2; O2SAT 96
[2024-07-04] MEDS: Piperacillin Sodium/Tazobactam 3.375 GM in 0.9 % Sodium Chloride 50 ML IV ×4 (03:53→21:14)
[2024-07-04] MEDS: Magnesium Hydrox/Alum Hydrox 30 ML ORAL.SUSP PO ×2 (04:00→11:34)
[2024-07-04 05:39] LABS: MANUAL DIFF FLAG NO
[2024-07-04 05:51] LABS: Basophils Absolute Auto 0.1 X10*3/uL (0.0-0.2); Basophils Percent Auto 0.4 % (0-2); Hematocrit 37.3 % (37.0-47.0); Imm Gran Abs Auto 0.12 X10*3/uL (0.00-0.03); Imm Gran Pct Auto 0.9 % (0.0-0.4); Lymphocytes Absolute Auto 1.5 X10*3/uL (1.2-4.9); Lymphocytes Percent Auto 10.5 % (20-40); Mean Corpuscular HGB Conc 32.2 g/dl (31.0-35.0); Mean Corpuscular Volume 77.7 fL (80.0-98.0); Mean Platelet Volume 8.8 fL (9.4-12.3); Monocytes Absolute Auto 0.6 X10*3/uL (0.1-1.2); Monocytes Percent Auto 3.9 % (2-11); Neutrophils Absolute Auto 11.9 x10*3/uL (2.0-8.3); Neutrophils Percent Auto 84.3 % (45-73); Platelet Count 483 X10*3/uL (160-400); Red Cell Distribution Width 13.5 % (11.0-16.0); White Blood Count 14.1 X10*3/uL (4.8-10.8)
[2024-07-04 06:36] LABS: Anion Gap 19 (12-20); Blood Urea Nitrogen 13 mg/dL (9-16); Calcium 8.8 mg/dL (8.4-10.2); Carbon Dioxide 22 mmol/L (22-29); Chloride 96 mmol/L (96-108); Creatinine Clr Calc Pharmacy 121.7; Estimated Glomerular Filt Rate > 60; Glucose Random 392 mg/dL (60-115); Potassium 3.9 mmol/L (3.3-5.1); Sodium 133 mmol/L (135-145)
--- NOTE | 2024-07-04 06:40 | PC.NURSE ---
0625-critical glucose received from lab of 392, Hospitalist on duty noted to acknowledge tiger text also, awaiting if new orders cross over to her Mar, Patient noted resting in bed with no stated complaints.
--- NOTE | 2024-07-04 07:08 | PC.NURSE ---
0705- Hospitalist responded to please have day RN cover patient for elevated blood sugar as per scale, day RN alerted to that follow up order.
[2024-07-04 07:28] LABS: Glucose, Whole Blood 380 mg/dL (60-115)
[2024-07-04 07:39] LABS: Erythrocyte Sedimentation Rate 82 MM/HR (0-20)
[2024-07-04 07:52] VITALS: BP 180/92; PULSE 75; RESP 18; TEMP 36.4; O2SAT 95
[2024-07-04] MEDS: lisinopriL 10 MG TABLET PO (08:01)
[2024-07-04] MEDS: methADONE HCl 20 MG/2 ML ORAL.CONC 120 MG PO (08:03)
[2024-07-04] MEDS: Insulin Lispro 100 UNIT/ML 3 ML VIAL SUBCUT ×4 (08:03→21:14)
[2024-07-04] MEDS: 0.9 % Sodium Chloride Flush 3 ML SYRINGE IVFLUSH ×3 (08:05→21:15)
[2024-07-04] MEDS: Enoxaparin Sodium 40 MG/0.4 ML SYRINGE SUBCUT (08:07)
--- NOTE | 2024-07-04 10:00 | MHC.RECOVRN ---
Attempted to meet with pt again after consult to Addiction Medicine. Pt laying in bed, eyes closed, briefly wakes to voice but does not engage with t/w other than requesting medication for nausea. Informed pts RN. Marivel Bentley APRN, aware.
--- NOTE | 2024-07-04 10:51 | MHC.CM.PN ---
Pt self-care, lives at home with her adult daughter. Pt gets methadone through [facility] in [place]. HCP on file and verified. Pt will need assistance with transport home at discharge. Pt has no PCP, declined a local list of providers.
[2024-07-04 10:52] LABS: Vancomycin Trough 9.4 mcg/mL (10.0-20.0)
--- NOTE | 2024-07-04 11:06 | HE.PHANOTE ---
Re: Maria Alejandrao Pt has stable and good renal function. Trough returned at 9.4. Continue current regimen of 1,250mg q12h, with predict AUC 484, and predicted trough 14. Next trough 07/05 @ 1000.
[2024-07-04 11:19] LABS: Glucose, Whole Blood 365 mg/dL (60-115)
[2024-07-04] MEDS: vancomycin HCL 1,250 MG in 0.9 % Sodium Chloride 250 ML 166.67 MG IV (11:30)
--- NOTE | 2024-07-04 11:59 | HO.VASCPN ---
Subjective Subjective Date of Service: 07/04/24 Interval history: Misty is doing ok. She is very nauseous today. She does endorse less pain in her right foot/toe as well as less warmth/heat. She denies any other concerns this morning. Physical Exam Vital Signs: Vital Signs: Last Vital Signs Temp 97.5 F 07/04/24 07:52 Pulse 75 07/04/24 07:52 Resp 18 07/04/24 07:52 BP 180/92 H 07/04/24 07:52 Pulse Ox 95 07/04/24 07:52 O2 Del Method Room Air 07/04/24 07:52 BMI result Body Mass Index 40.7 Const: General: comfortable and no acute distress Orientation/consciousness: patient oriented x3 HEENT: Ears: hearing grossly normal bilaterally Resp: Effort & Inspection: normal respiratory effort and able to speak in complete sentences Auscultation: clear to auscultation bilaterally Cardio: Rate: regular rate Rhythm: regular rhythm Heart sounds: S1 normal heart sound present and S2 normal heart sound present Bruits: no abdominal aortic bruits, no carotid bruits, no femoral bruits and no renal bruits GI: Palpation (GI): No Abdominal aortic bruit present Neuro: General: patient oriented x3 Cranial nerves: Yes CN's II-XII intact bilaterally Extrem: Other: R1: slightly erythematous to the base of the toe, less than yesterday. Not hot to the touch. Wound covered with new dressing. Palpable DP pulses. Progress Note: A&P Assessment and plan (1) Osteomyelitis: Status: Acute Assessment and Plan: Misty remains stable vascularly. The cellulitis is lessening. We reviewed the Duplex arterial US from yesterday which revealed widely patent arterial flow throughout the right lower extremity. From a vascular standpoint, there is no acute surgical intervention needed at this point. She can follow up with us outpatient after discharge. Thank you for the consult. If there are any questions or concerns, please do not hesitate to contact us. Time Spent With Patient Time: Total time managing care of this patient today ___20_ minutes. Procedures Date of Service Date of Service: 07/04/24 Quality Stroke Does the patient have a stroke diagnosis?: No VTE Prior VTE?: No VTE Risk Level:: Medical - moderate - high VTE Device Contraindication: Procedure Contraindicated VTE Drug Contraindication: N/A - Med Ordered
--- NOTE | 2024-07-04 12:12 | PC.NURSE ---
patient currently refusing dressing change, will re visit at a later time
[2024-07-04] MEDS: oxyCODONE HCl Immed Release 5 MG TABLET PO (12:45)
--- NOTE | 2024-07-04 14:56 | P.PNIM_ITS ---
Subjective Subjective Date of Service: 07/04/24 Interval History: Continues with nausea and vomiting; states similar to past episodes of gastroparesis when off meds. Review of Systems Denies chest pain Admits to persistent nausea and vomiting Denies fever chills Denies abdominal pain Physical Exam 2 Vital Signs: Vital Signs: Last Vital Signs Temp 97.5 F 07/04/24 07:52 Pulse 75 07/04/24 07:52 Resp 18 07/04/24 07:52 BP 180/92 H 07/04/24 07:52 Pulse Ox 95 07/04/24 07:52 O2 Del Method Room Air 07/04/24 07:52 BMI result Body Mass Index 40.7 Const: Other: Awake alert ill-appearing Resp: Other: Clear to auscultation bilaterally no rales rhonchi or wheezes Cardio: Other: No S4; positive S1-S2; no S3 murmurs rubs or gallops GI: Other: Soft nontender nondistended normoactive bowel sounds Extrem: Other: No edema bilaterally Objective Data Active Medications Acetaminophen (Acetaminophen 325 Mg Tablet) 650 mg PO Q6H PRN PRN Reason: Pain, Mild (Pain Scale 1-3), fever or headache Al Hydroxide/Mg Hydroxide (Magnesium Hydrox/Alum Hydrox 30 Ml Oral.Susp) 30 ml PO Q6H PRN PRN Reason: Heartburn Last Admin: 07/04/24 11:34 Dose: 30 ml Documented By: HARISH Calcium Carbonate (Calcium Carbonate 750 Mg Tab.Chew) 750 mg PO Q4H PRN PRN Reason: Heartburn Enoxaparin Sodium (Enoxaparin Sodium 40 Mg/0.4 Ml Syringe) 40 mg SUBCUT Q24H [facility] Last Admin: 07/04/24 08:07 Dose: 40 mg Documented By: HARISH Glucose (Glucose Gel 15 Gm Gel..Gram.) 15 gm PO Q15M PRN; Protocol PRN Reason: per Hypoglycemia Standing Ord. Dextrose (D10) 250 mls @ 750 mls/hr IV Q15M PRN; Protocol PRN Reason: per Hypoglycemia Standing Ord. Piperacillin Sod/Tazobactam (Sod 3.375 gm/ Sodium Chloride) 50 mls @ 100 mls/hr IV Q6H [facility] Last Infusion: 07/04/24 08:53 Dose: Infused Documented By: HARISH Vancomycin HCl 1,250 mg/ (Sodium Chloride) 250 mls @ 166.667 mls/hr IV Q12H [facility] Last Infusion: 07/04/24 13:16 Dose: Infused Documented By: HARISH Insulin Glargine (Insulin Glargine,Hum.Rec.Anlog 100 Unit/Ml 10 Ml Vial) 15 unit SUBCUT BEDTIME [facility] Last Admin: 07/03/24 20:55 Dose: 15 unit Documented By: CHRISTIANO Insulin Human Lispro (Insulin Lispro 100 Unit/Ml 3 Ml Vial) 0 unit SUBCUT QIDACHS [facility]; Protocol Last Admin: 07/04/24 11:30 Dose: 10 unit Documented By: HARISH Lisinopril (Lisinopril 10 Mg Tablet) 10 mg PO DAILY [facility]; Protocol Last Admin: 07/04/24 08:01 Dose: 10 mg Documented By: HARISH Magnesium Hydroxide (Milk Of Magnesia 30 Ml Oral.Susp) 30 ml PO DAILY PRN PRN Reason: Constipation Melatonin (Melatonin 3 Mg Tablet) 6 mg PO BEDTIME PRN PRN Reason: Insomnia Methadone HCl (Methadone Hcl 20 Mg/2 Ml Oral.Conc) 120 mg PO DAILY [facility] Last Admin: 07/04/24 08:03 Dose: 120 mg Documented By: HARISH Co-signed By: SHARRON Ondansetron HCl (Ondansetron Hcl 4 Mg/2 Ml Vial) 4 mg IVPUSH Q4H PRN PRN Reason: Nausea and Vomiting Last Admin: 07/04/24 12:04 Dose: 4 mg Documented By: HARISH Oxycodone HCl (Oxycodone Hcl Immed Release 5 Mg Tablet) 5 mg PO Q4H PRN PRN Reason: Pain, Moderate(Pain Scale 4-6) Last Admin: 07/04/24 12:45 Dose: 5 mg Documented By: HARISH Pharmacy Consult (Consult Rx Vancomycin Dosing) 1 each MISCELLANE DAILY PRN PRN Reason: Consult order Sodium Chloride (0.9 % Sodium Chloride Flush 3 Ml Syringe) 3 ml IVFLUSH QSHIFT [facility] Last Admin: 07/04/24 08:05 Dose: 3 ml Documented By: HARISH Labs 07/04/24 05:30 07/04/24 05:30 Labs: Laboratory Results - last 24 hr 07/03/24 07/03/24 07/04/24 16:18 20:23 05:30 MCV 77.7 L MCH 25.0 L MCHC 32.2 RDW 13.5 Plt Count 483 H MPV 8.8 L Immature Gran % (Auto) 0.9 H Neut % (Auto) 84.3 H Lymph % (Auto) 10.5 L [place] % (Auto) 3.9 Eos % (Auto) 0.0 Baso % (Auto) 0.4 Lymph # (Auto) 1.5 [place] # (Auto) 0.6 Eos # (Auto) 0.0 Baso # (Auto) 0.1 Abs Immat Gran (auto) 0.12 H Absolute Neuts (auto) 11.9 H Absolute Nucleated RBC 0.000 Nucleated RBC % (auto) 0.0 ESR 82 H Anion Gap 19 Estim Creat Clear Calc 121.7 Estimated GFR > 60 POC Glucose 308 H 257 H Random Glucose 392 H* Calcium 8.8 Vancomycin Trough 07/04/24 07/04/24 07/04/24 07:20 10:32 11:15 MCV MCH MCHC RDW Plt Count MPV Immature Gran % (Auto) Neut % (Auto) Lymph % (Auto) [place] % (Auto) Eos % (Auto) Baso % (Auto) Lymph # (Auto) [place] # (Auto) Eos # (Auto) Baso # (Auto) Abs Immat Gran (auto) Absolute Neuts (auto) Absolute Nucleated RBC Nucleated RBC % (auto) ESR Anion Gap Estim Creat Clear Calc Estimated GFR POC Glucose 380 H* 365 H* Random Glucose Calcium Vancomycin Trough 9.4 L Microbiology Microbiology Results: Microbiology 07/02/24 23:58 Blood Culture - Preliminary Blood - Venous No growth after 24 hours. 07/02/24 23:57 Blood Culture - Preliminary Blood - Venous No growth after 24 hours. Assessment and Plan (1) Gastroparesis: Status: Acute Plan Patient is a 39-year-old female with a past medical history significant for insulin-dependent diabetes, IV drug use, chronic left arm ulcer, gastroparesis, hypertension, obesity and PCOS who presented to the ED last night with severe nausea vomiting and right great toe infection. She has been without her insulin for the past 3 months. She has a known diagnosis of gastroparesis, likely exacerbated due to poor diabetic control. New osteomyelitis right great toe, no previous history. Recently admissions for MSSA bacteremia, perirectal abscess and DKA (in ICU). 1.Osteomyelitis right great toe(sepsis resolved) -x-ray highly suspect for osteo; MRI ordered patient could not complete secondary to nausea -inflammatory markers elevated; treat empirically pending MRI -vancomycin/Zosyn (2) -ID consult 2. Diabetic gastroparesis -question component of opiate withdrawal -1 dose morphine 4 mg -add Reglan; continue Zofran. Question small dose of Haldol if these regimens ineffective -aggressive treatment of blood sugars 2.Insulin-dependent diabetes - lispro correctional scale -basal dosing -adjust as indicated 3.HTN - restart lisinopril and amlodipine -adjust as clinically indicated 4. Opiate abuse -methadone as ordered Full code Lovenox Patient will require ongoing hospitalization for IV antibiotics and specialty consultation Quality Stroke Does the patient have a stroke diagnosis?: No VTE Prior VTE?: No VTE Risk Level:: Medical - moderate - high VTE Device Contraindication: Procedure Contraindicated VTE Drug Contraindication: N/A - Med Ordered
[2024-07-04] MEDS: Metoclopramide HCl 10 MG/2 ML VIAL 5 MG IVPUSH ×2 (15:15→19:53)
[2024-07-04] MEDS: Morphine Sulfate 4 MG/ML CARTRIDGE IVPUSH ×2 (15:15→23:32)
[2024-07-04 15:57] VITALS: BP 178/84; PULSE 71; RESP 14; TEMP 36.6; O2SAT 95
[2024-07-04 16:18] LABS: Glucose, Whole Blood 343 mg/dL (60-115)
[2024-07-04 19:30] VITALS: BP 200/108; PULSE 77; RESP 16; TEMP 36.8; O2SAT 95
[2024-07-04] MEDS: amLODIPine Besylate 2.5 MG TABLET 7.5 MG PO (20:00)
--- NOTE | 2024-07-04 20:10 | PC.NURSE ---
Addendum entered by Hiwot Harris RN 07/05/24 00:08: late entry. repeat BP 182/84. Patient also will be medicated for pain. Dr Manrique made aware, no new orders at this time. Original Note: BP 200/108, P 77. Patient started on Amlodipine. Will recheck BP in [address] Manrique.
[2024-07-04 20:41] LABS: Glucose, Whole Blood 347 mg/dL (60-115)
[2024-07-04] MEDS: Insulin Glargine,Hum.rec.anlog 100 UNIT/ML 10 ML VIAL 15 UNIT SUBCUT (21:14)
[2024-07-04 22:19] VITALS: BP 182/84
[2024-07-04] MEDS: vancomycin HCL 1,250 MG in 0.9 % Sodium Chloride 250 ML 166.66 MG IV (23:33)
[2024-07-05] VITALS (8 sets, daily range): BP systolic 161–195; BP diastolic 79–96; PULSE 66–78; RESP 12–18; TEMP 36.1–36.7; O2SAT 96–100
[2024-07-05] MEDS: Metoclopramide HCl 10 MG/2 ML VIAL 5 MG IVPUSH ×4 (00:32→17:01)
[2024-07-05] MEDS: ondansetron HCL 4 MG/2 ML VIAL IVPUSH ×4 (02:56→19:59)
[2024-07-05] MEDS: Piperacillin Sodium/Tazobactam 3.375 GM in 0.9 % Sodium Chloride 50 ML IV ×4 (02:56→22:14)
[2024-07-05 06:37] LABS: MANUAL DIFF FLAG NO
[2024-07-05 07:17] LABS: Alanine Aminotransferase < 6 U/L (0-31); Albumin Level 3.2 g/dL (3.5-5.0); Alkaline Phosphatase 90 U/L (39-117); Anion Gap 18 (12-20); Aspartate Amino Transferase 14 U/L (5-31); Bilirubin Total 0.4 mg/dL (0.0-1.0); Blood Urea Nitrogen 13 mg/dL (9-16); C Reactive Protein 1.78 mg/dL (< or = 0.50); Calcium 8.3 mg/dL (8.4-10.2); Carbon Dioxide 23 mmol/L (22-29); Chloride 95 mmol/L (96-108); Creatinine Clr Calc Pharmacy 132.5; Estimated Glomerular Filt Rate > 60; Glucose Fasting 320 mg/dL (60-99); Glucose Random 317 mg/dL (60-115); Potassium 3.8 mmol/L (3.3-5.1); Sodium 132 mmol/L (135-145)
[2024-07-05 07:27] LABS: Basophils Percent Auto 0.3 % (0-2); Eosinophils Percent Auto 0.1 % (0-4); Hematocrit 36.9 % (37.0-47.0); Hemoglobin 12.1 g/dl (12.0-16.0); Imm Gran Abs Auto 0.13 X10*3/uL (0.00-0.03); Imm Gran Pct Auto 1.1 % (0.0-0.4); Mean Corpuscular HGB Conc 32.8 g/dl (31.0-35.0); Mean Corpuscular Hemoglobin 25.4 pg (27.0-33.0); Mean Corpuscular Volume 77.4 fL (80.0-98.0); Mean Platelet Volume 8.8 fL (9.4-12.3); Monocytes Absolute Auto 0.7 X10*3/uL (0.1-1.2); Monocytes Percent Auto 5.7 % (2-11); Neutrophils Absolute Auto 9.4 x10*3/uL (2.0-8.3); Neutrophils Percent Auto 76.8 % (45-73); Platelet Count 531 X10*3/uL (160-400); Red Blood Count 4.77 X10*6/uL (4.20-5.50); Red Cell Distribution Width 13.4 % (11.0-16.0); White Blood Count 12.2 X10*3/uL (4.8-10.8)
[2024-07-05 07:30] LABS: Glucose, Whole Blood 291 mg/dL (60-115)
[2024-07-05] MEDS: Insulin Lispro 100 UNIT/ML 3 ML VIAL SUBCUT ×4 (07:51→21:13)
[2024-07-05] MEDS: lisinopriL 10 MG TABLET PO ×2 (07:51→15:18)
[2024-07-05] MEDS: methADONE HCl 20 MG/2 ML ORAL.CONC 120 MG PO (07:52)
[2024-07-05] MEDS: Morphine Sulfate 4 MG/ML CARTRIDGE IVPUSH (07:52)
[2024-07-05] MEDS: 0.9 % Sodium Chloride Flush 3 ML SYRINGE IVFLUSH (07:53)
[2024-07-05] MEDS: Enoxaparin Sodium 40 MG/0.4 ML SYRINGE SUBCUT (07:53)
[2024-07-05 10:25] LABS: C Reactive Protein 1.65 mg/dL (< or = 0.50)
[2024-07-05 10:48] LABS: Vancomycin Random 9.9 mcg/mL (15-20)
--- NOTE | 2024-07-05 11:04 | HE.PHANOTE ---
Addendum entered by Fifi Broussard radha 07/07/24 14:58: Renal function still stable on 07/07/2024, trough came back subtherapeutic at 10.0, increased dose to 1250mg Q8H. Predicted auc 569, predicted trough 16.4. Next trough for 07/08 @1300, in hopes of getting patient up and then to be reassessed and potentially lowered back down once patient's levels are therapeutic. Original Note: RE VANCO DOSING RENAL FUNCTION CONTINUES STABLE. TODAY CRCL IS 132.5. VANCO LEVEL STILL LOW AT 9.9. CHANGING DOSING TO 1000 MG Q8 TO ATTEMPT TO GET AUC OVER 400. INSIGHT SHOWS AUC 487 AND TROUGH 14.6 WITH THIS DOSING PLAN BUT WITH PATIENT BMI OVER 40 IT IS POSSIBLE TO SEE A QUICK INCREASE IN VANCO BLOOD LEVELS SO WILL CONTINUE TO MONITOR CAREFULLY AND GET ANOTHER LEVEL 07/06 @1000.
[2024-07-05 11:54] LABS: Glucose, Whole Blood 349 mg/dL (60-115)
[2024-07-05] MEDS: vancomycin HCL 1,000 MG in 0.9 % Sodium Chloride 250 ML 270 MG IV ×2 (12:15→20:02)
--- NOTE | 2024-07-05 13:10 | HO.PM.IMPN ---
Subjective Subjective Date of Service: 07/05/24 Interval History: Feels nauseous this morning, no vomiting, denies headache, no lightheadedness, no other acute events overnight. Review of Systems All other system reviewed and are negative Physical Exam Vital Signs: Vital Signs: Last Vital Signs Temp 97.1 F 07/05/24 07:24 Pulse 70 07/05/24 09:45 Resp 18 07/05/24 07:52 BP 174/92 H 07/05/24 09:45 Pulse Ox 97 07/05/24 07:24 O2 Del Method Room Air 07/05/24 07:24 BMI result Body Mass Index 40.7 Const: Other: General resting comfortably in no acute distress. Neck no JVD. CVS regular rate rhythm, Respiratory lungs clear to auscultation, no respiratory distress, no wheeze, no rhonchi. Gastrointestinal abdomen soft, nontender, bowel sounds audible, no guarding Extremities no edema. Neuro non focal Skin left forearm wound see pictures in wound consult, no drainage noted, unchanged from before Right foot 1st proximal phalanx wound, dressing in place Objective Data Active Medications Acetaminophen (Acetaminophen 325 Mg Tablet) 650 mg PO Q6H PRN PRN Reason: Pain, Mild (Pain Scale 1-3), fever or headache Al Hydroxide/Mg Hydroxide (Magnesium Hydrox/Alum Hydrox 30 Ml Oral.Susp) 30 ml PO Q6H PRN PRN Reason: Heartburn Last Admin: 07/04/24 11:34 Dose: 30 ml Documented By: HARISH Amlodipine Besylate (Amlodipine Besylate 2.5 Mg Tablet) 7.5 mg PO BEDTIME [facility]; Protocol Last Admin: 07/04/24 20:00 Dose: 7.5 mg Documented By: LYSJose Manuel Calcium Carbonate (Calcium Carbonate 750 Mg Tab.Chew) 750 mg PO Q4H PRN PRN Reason: Heartburn Enoxaparin Sodium (Enoxaparin Sodium 40 Mg/0.4 Ml Syringe) 40 mg SUBCUT Q24H [facility] Last Admin: 07/05/24 07:53 Dose: 40 mg Documented By: COTEMA Glucose (Glucose Gel 15 Gm Gel..Gram.) 15 gm PO Q15M PRN; Protocol PRN Reason: per Hypoglycemia Standing Ord. Dextrose (D10) 250 mls @ 750 mls/hr IV Q15M PRN; Protocol PRN Reason: per Hypoglycemia Standing Ord. Piperacillin Sod/Tazobactam (Sod 3.375 gm/ Sodium Chloride) 50 mls @ 100 mls/hr IV Q6H [facility] Last Infusion: 07/05/24 08:36 Dose: Infused Documented By: COTEMA Vancomycin HCl 1,000 mg/ (Sodium Chloride) 270 mls @ 270 mls/hr IV Q8H [facility] Last Admin: 07/05/24 12:15 Dose: 270 mls/hr Documented By: COTEMA Insulin Glargine (Insulin Glargine,Hum.Rec.Anlog 100 Unit/Ml 10 Ml Vial) 15 unit SUBCUT BEDTIME [facility] Last Admin: 07/04/24 21:14 Dose: 15 unit Documented By: LYSZ Insulin Human Lispro (Insulin Lispro 100 Unit/Ml 3 Ml Vial) 0 unit SUBCUT QIDACHS [facility]; Protocol Last Admin: 07/05/24 12:15 Dose: 8 unit Documented By: COTEMA Lisinopril (Lisinopril 10 Mg Tablet) 10 mg PO DAILY [facility]; Protocol Last Admin: 07/05/24 07:51 Dose: 10 mg Documented By: COTEMA Magnesium Hydroxide (Milk Of Magnesia 30 Ml Oral.Susp) 30 ml PO DAILY PRN PRN Reason: Constipation Melatonin (Melatonin 3 Mg Tablet) 6 mg PO BEDTIME PRN PRN Reason: Insomnia Methadone HCl (Methadone Hcl 20 Mg/2 Ml Oral.Conc) 120 mg PO DAILY [facility] Last Admin: 07/05/24 07:52 Dose: 120 mg Documented By: ROBERT Co-signed By: RDNM Metoclopramide HCl (Metoclopramide Hcl 10 Mg/2 Ml Vial) 5 mg IVPUSH Q4H PRN PRN Reason: Nausea and Vomiting Last Admin: 07/05/24 12:14 Dose: 5 mg Documented By: COTEMA Morphine Sulfate (Morphine Sulfate 4 Mg/Ml Cartridge) 4 mg IVPUSH Q4H PRN; Protocol PRN Reason: Pain, Severe (Pain Scale 7-10) Last Admin: 07/05/24 07:52 Dose: 4 mg Documented By: COTEMA Ondansetron HCl (Ondansetron Hcl 4 Mg/2 Ml Vial) 4 mg IVPUSH Q4H PRN PRN Reason: Nausea and Vomiting Last Admin: 07/05/24 07:52 Dose: 4 mg Documented By: ROBERT Oxycodone HCl (Oxycodone Hcl Immed Release 5 Mg Tablet) 5 mg PO Q4H PRN PRN Reason: Pain, Moderate(Pain Scale 4-6) Last Admin: 07/04/24 12:45 Dose: 5 mg Documented By: HARISH Pharmacy Consult (Consult Rx Vancomycin Dosing) 1 each MISCELLANE DAILY PRN PRN Reason: Consult order Sodium Chloride (0.9 % Sodium Chloride Flush 3 Ml Syringe) 3 ml IVFLUSH [facility] Last Admin: 07/05/24 07:53 Dose: 3 ml Documented By: ROBERT Labs 07/05/24 06:18 07/05/24 06:18 Labs: Laboratory Results - last 24 hr 07/04/24 07/04/24 07/05/24 16:15 20:34 06:18 MCV 77.4 L MCH 25.4 L MCHC 32.8 RDW 13.4 Plt Count 531 H MPV 8.8 L Immature Gran % (Auto) 1.1 H Neut % (Auto) 76.8 H Lymph % (Auto) 16.0 L [place] % (Auto) 5.7 Eos % (Auto) 0.1 Baso % (Auto) 0.3 Lymph # (Auto) 2.0 [place] # (Auto) 0.7 Eos # (Auto) 0.0 Baso # (Auto) 0.0 Abs Immat Gran (auto) 0.13 H Absolute Neuts (auto) 9.4 H Absolute Nucleated RBC 0.000 Nucleated RBC % (auto) 0.0 Anion Gap 18 Estim Creat Clear Calc 132.5 Estimated GFR > 60 POC Glucose 343 H 347 H Random Glucose 317 H Fasting Glucose 320 H Calcium 8.3 L Total Bilirubin 0.4 AST 14 ALT < 6 Alkaline Phosphatase 90 C-Reactive Protein 1.78 H C-React Prot High Sens Cancelled Total Protein 8.0 Albumin 3.2 L Random Vancomycin 07/05/24 07/05/24 07/05/24 07:23 10:02 11:50 MCV MCH MCHC RDW Plt Count MPV Immature Gran % (Auto) Neut % (Auto) Lymph % (Auto) [place] % (Auto) Eos % (Auto) Baso % (Auto) Lymph # (Auto) [place] # (Auto) Eos # (Auto) Baso # (Auto) Abs Immat Gran (auto) Absolute Neuts (auto) Absolute Nucleated RBC Nucleated RBC % (auto) Anion Gap Estim Creat Clear Calc Estimated GFR POC Glucose 291 H 349 H Random Glucose Fasting Glucose Calcium Total Bilirubin AST ALT Alkaline Phosphatase C-Reactive Protein 1.65 H C-React Prot High Sens Total Protein Albumin Random Vancomycin 9.9 L Microbiology Microbiology Results: Microbiology 07/02/24 23:58 Blood Culture - Preliminary Blood - Venous No growth after 48 hours. 07/02/24 23:57 Blood Culture - Preliminary Blood - Venous No growth after 48 hours. Assessment and Plan (1) Hypertension: Status: Acute (2) Opioid use disorder: Status: Acute (3) Morbid obesity: Status: Acute Plan 39-year-old female with a past medical history significant for insulin-dependent diabetes, IV drug use, chronic left arm ulcer, gastroparesis, hypertension, obesity and PCOS who presented to the ED last night with severe nausea vomiting and right great toe infection. She has been without her insulin for the past 3 months. She has a known diagnosis of gastroparesis, likely exacerbated due to poor diabetic control. New osteomyelitis right great toe, no previous history. Recently admissions for MSSA bacteremia, perirectal abscess and DKA (in ICU). 1.Osteomyelitis right great toe(sepsis resolved) -x-ray highly suspect for osteo; MRI ordered patient could not complete secondary to nausea -continue IV vancomycin and IV Zosyn started , pending MRI -duplex study showed normal arterial flow -ID consult, will DC vascular surgery consult 2. Diabetic gastroparesis -question component of opiate withdrawal -nausea vomiting improving continue IV Reglan prn , add IV fluids -aggressive treatment of blood sugars 2.Insulin-dependent diabetes - elevated blood sugars in 300 on lispro correctional scale -will increase dose of Lantus to 20, and adjust insulin sliding scale 3.HTN - continue lisinopril and amlodipine, increase dose of lisinopril to 20 mg -adjust as clinically indicated 4. Opiate abuse -methadone as ordered 5. Class 3 obesity recommend low-calorie diet Full code Lovenox Patient will require ongoing hospitalization for IV antibiotics and specialty consultation. Quality Stroke Does the patient have a stroke diagnosis?: No VTE Prior VTE?: No VTE Risk Level:: Medical - moderate - high VTE Device Contraindication: Procedure Contraindicated VTE Drug Contraindication: N/A - Med Ordered
[2024-07-05] MEDS: 0.9 % Sodium Chloride 1,000 ML 100 ML IVCONT (15:14)
[2024-07-05 16:22] LABS: Glucose, Whole Blood 282 mg/dL (60-115)
[2024-07-05] MEDS: amLODIPine Besylate 2.5 MG TABLET 7.5 MG PO (20:01)
[2024-07-05] MEDS: gadobutroL 10 ML VIAL IVPUSH (20:50)
[2024-07-05 21:08] LABS: Glucose, Whole Blood 231 mg/dL (60-115)
[2024-07-05] MEDS: Insulin Glargine,Hum.rec.anlog 100 UNIT/ML 10 ML VIAL 20 UNIT SUBCUT (21:14)
--- NOTE | 2024-07-06 00:49 | W.PM.IDCN ---
History of Present Illness Data of Consult Service Date: 07/05/24 Requesting physician: Raffi Godoy Primary Care Provider: None Physician HPI Reason for consult: nausea and vomiting She presents with headache and nausea and vomiting. She has had arm ulcers due to IVDU. She is now given Vancomycin and Zosyn Review of Systems Review of Systems: Yes all other systems are reviewed and are negative PMFSH Past Medical History Medical History Opioid use disorder Hypertension Sepsis Depression PCOS (polycystic ovarian syndrome) Rash Polysubstance (excluding opioids) dependence, daily use Methadone maintenance therapy patient Anxiety and depression Diabetes Family History Family history: reviewed and not pertinent Social History Social History Household Members: Children Household Members Other:: daughter Housing: Apartment Do you presently have visiting nurse or other home services: No Alcohol intake: current Alcohol intake frequency: does not drink Patient Tobacco Use Status: Never used Tobacco Tobacco use type: Cigarette Cigarette Packs Per Day: 3 Cigarettes Per Day: 60.0 Years Smoked: 2 Smoked in Last 30 Days: No e-Cigarette/Vaping Use: Never Used Use of substances other than those prescribed or required for medical reasons: Yes Substance Use Type: Heroin and Marijuana Substance Use Frequency: Daily Last Used Substance: Just Prior to Admission Currently Displaying Signs/Symptoms of Drug Intoxication Withdrawal: No Any prior treatment program specific to substance use: No Have you been hit, kicked, punched, or otherwise hurt by someone within the past year? If so, by whom?: No Do you feel safe in your current relationship?: No Is there a partner from a previous relationship who is making you feel unsafe now?: No Are you made to feel afraid or neglected: No Advance Directives: Yes Advance Directives on File: Yes Advance Directives Date on File: 01/11/22 Do you have a plan to hurt others: No Plan Recently lost weight without trying: No Nutrition Risks: No Nutritional Risk Patient : No : No Poor oral hygiene: No service: No Current occupational status: unemployed Meds Allergies Allergy/AdvReac Type Severity Reaction Status Date / Time No Known Allergies Allergy Verified 07/02/24 23:27 Active Medications: Current Medications Acetaminophen (Acetaminophen 325 Mg Tablet) 650 mg PO Q6H PRN PRN Reason: Pain, Mild (Pain Scale 1-3), fever or headache Al Hydroxide/Mg Hydroxide (Magnesium Hydrox/Alum Hydrox 30 Ml Oral.Susp) 30 ml PO Q6H PRN PRN Reason: Heartburn Last Admin: 07/04/24 11:34 Dose: 30 ml Amlodipine Besylate (Amlodipine Besylate 2.5 Mg Tablet) 7.5 mg PO BEDTIME [facility]; Protocol Last Admin: 07/05/24 20:01 Dose: 7.5 mg Calcium Carbonate (Calcium Carbonate 750 Mg Tab.Chew) 750 mg PO Q4H PRN PRN Reason: Heartburn Enoxaparin Sodium (Enoxaparin Sodium 40 Mg/0.4 Ml Syringe) 40 mg SUBCUT Q24H [facility] Last Admin: 07/05/24 07:53 Dose: 40 mg Glucose (Glucose Gel 15 Gm Gel..Gram.) 15 gm PO Q15M PRN; Protocol PRN Reason: per Hypoglycemia Standing Ord. Dextrose (D10) 250 mls @ 750 mls/hr IV Q15M PRN; Protocol PRN Reason: per Hypoglycemia Standing Ord. Piperacillin Sod/Tazobactam (Sod 3.375 gm/ Sodium Chloride) 50 mls @ 100 mls/hr IV Q6H [facility] Last Infusion: 07/05/24 22:50 Dose: Infused Vancomycin HCl 1,000 mg/ (Sodium Chloride) 270 mls @ 270 mls/hr IV Q8H [facility] Last Infusion: 07/05/24 21:05 Dose: Infused Insulin Glargine (Insulin Glargine,Hum.Rec.Anlog 100 Unit/Ml 10 Ml Vial) 20 unit SUBCUT BEDTIME [facility] Last Admin: 07/05/24 21:14 Dose: 20 unit Insulin Human Lispro (Insulin Lispro 100 Unit/Ml 3 Ml Vial) 0 unit SUBCUT QIDACHS [facility]; Protocol Last Admin: 07/05/24 21:13 Dose: 6 unit Lisinopril (Lisinopril 20 Mg Tablet) 20 mg PO DAILY [facility]; Protocol Magnesium Hydroxide (Milk Of Magnesia 30 Ml Oral.Susp) 30 ml PO DAILY PRN PRN Reason: Constipation Melatonin (Melatonin 3 Mg Tablet) 6 mg PO BEDTIME PRN PRN Reason: Insomnia Methadone HCl (Methadone Hcl 20 Mg/2 Ml Oral.Conc) 120 mg PO DAILY [facility] Last Admin: 07/05/24 07:52 Dose: 120 mg Metoclopramide HCl (Metoclopramide Hcl 10 Mg/2 Ml Vial) 5 mg IVPUSH Q4H PRN PRN Reason: Nausea and Vomiting Last Admin: 07/05/24 17:01 Dose: 5 mg Morphine Sulfate (Morphine Sulfate 4 Mg/Ml Cartridge) 4 mg IVPUSH Q4H PRN; Protocol PRN Reason: Pain, Severe (Pain Scale 7-10) Last Admin: 07/05/24 07:52 Dose: 4 mg Ondansetron HCl (Ondansetron Hcl 4 Mg/2 Ml Vial) 4 mg IVPUSH Q4H PRN PRN Reason: Nausea and Vomiting Last Admin: 07/05/24 19:59 Dose: 4 mg Oxycodone HCl (Oxycodone Hcl Immed Release 5 Mg Tablet) 5 mg PO Q4H PRN PRN Reason: Pain, Moderate(Pain Scale 4-6) Last Admin: 07/04/24 12:45 Dose: 5 mg Pharmacy Consult (Consult Rx Vancomycin Dosing) 1 each MISCELLANE DAILY PRN PRN Reason: Consult order Sodium Chloride (0.9 % Sodium Chloride Flush 3 Ml Syringe) [facility] Last Admin: 07/06/24 00:07 Dose: Not Given Home Medications ?Medication ?Instructions ?Recorded ?Confirmed ?Last Taken ?Type methadone 10 mg/mL oral concentrate 120 mg PO DAILY 07/03/24 07/03/24 07/01/24 History Physical Exam Vital Signs: Vital Signs: Last Vital Signs Temp 98.0 F 07/05/24 19:41 Pulse 74 07/05/24 19:41 Resp 16 07/05/24 19:41 BP 174/86 H 07/05/24 19:41 Pulse Ox 100 07/05/24 19:41 O2 Del Method Room Air 07/05/24 19:41 BMI result Body Mass Index 40.7 Const: General: cooperative HEENT: Head: Yes normal to inspection Face and sinus: Yes normal facial exam Mouth: Normal oral and palatal mucosa present Teeth and gingiva: dentition normal Eyes: General: appearance normal, both eyes and all related structures Pupils: Equal, round and reactive pupils present Resp: Effort & Inspection: normal respiratory effort Cardio: Rate: regular rate Rhythm: regular rhythm GI: Palpation (GI): Soft to palpation and nontender : General: Yes no CVA tenderness Back/Spine/Pelvis: Back: no CVA tenderness Skin: General skin exam: no rashes or lesions noted Neuro: General: moves all extremities Cranial nerves: Yes Equal, round and reactive pupils present Extrem: Other: arm scaling General: Yes normal to inspection Psych: Appearance: grossly normal Results Labs 07/05/24 06:18 07/05/24 06:18 Labs: Short CBC 07/05/24 Range/Units 06:18 WBC 12.2 H (4.8-10.8) X10*3/uL Hgb 12.1 (12.0-16.0) g/dl Hct 36.9 L (37.0-47.0) % Plt Count 531 H (160-400) X10*3/uL BMP 07/05/24 06:18 Sodium 132 L Potassium 3.8 Chloride 95 L Carbon Dioxide 23 BUN 13 Creatinine 0.79 Calcium 8.3 L Liver Function 07/05/24 Range/Units 06:18 Total Bilirubin 0.4 (0.0-1.0) mg/dL AST 14 (5-31) U/L ALT < 6 (0-31) U/L Alkaline Phosphatase 90 (39-117) U/L Albumin 3.2 L (3.5-5.0) g/dL Microbiology Microbiology Results: Microbiology 07/02/24 23:58 Blood - Venous Blood Culture - Preliminary No growth after 48 hours. 07/02/24 23:57 Blood - Venous Blood Culture - Preliminary No growth after 48 hours. Assessment and Plan (1) Opioid use disorder: Status: Acute (2) Gastroparesis: Status: Acute Plan Watch blood cultures. May possibly stop antibiotics if nothing found on XR or blood culture.
[2024-07-06] MEDS: Metoclopramide HCl 10 MG/2 ML VIAL 5 MG IVPUSH ×3 (01:10→12:58)
[2024-07-06] MEDS: Piperacillin Sodium/Tazobactam 3.375 GM in 0.9 % Sodium Chloride 50 ML IV ×2 (03:17→08:34)
[2024-07-06] MEDS: vancomycin HCL 1,000 MG in 0.9 % Sodium Chloride 250 ML 270 MG IV ×3 (03:51→21:56)
[2024-07-06 03:57] VITALS: BP 158/85; PULSE 69; RESP 16; TEMP 36.7; O2SAT 95
[2024-07-06 06:10] LABS: MANUAL DIFF FLAG NO
[2024-07-06 06:14] LABS: Basophils Absolute Auto 0.1 X10*3/uL (0.0-0.2); Basophils Percent Auto 0.4 % (0-2); Eosinophils Absolute Auto 0.1 X10*3/uL (0.0-0.4); Eosinophils Percent Auto 0.5 % (0-4); Hematocrit 39.2 % (37.0-47.0); Hemoglobin 12.9 g/dl (12.0-16.0); Imm Gran Abs Auto 0.05 X10*3/uL (0.00-0.03); Imm Gran Pct Auto 0.4 % (0.0-0.4); Mean Corpuscular HGB Conc 32.9 g/dl (31.0-35.0); Mean Corpuscular Hemoglobin 25.3 pg (27.0-33.0); Mean Corpuscular Volume 76.9 fL (80.0-98.0); Mean Platelet Volume 8.6 fL (9.4-12.3); Monocytes Absolute Auto 0.7 X10*3/uL (0.1-1.2); Monocytes Percent Auto 6.7 % (2-11); Neutrophils Absolute Auto 7.2 x10*3/uL (2.0-8.3); Platelet Count 421 X10*3/uL (160-400); Red Cell Distribution Width 13.3 % (11.0-16.0); White Blood Count 11.1 X10*3/uL (4.8-10.8)
[2024-07-06 07:59] VITALS: BP 176/91; PULSE 78; RESP 18; TEMP 36.8; O2SAT 96
[2024-07-06 08:04] LABS: Glucose, Whole Blood 262 mg/dL (60-115)
[2024-07-06] MEDS: Enoxaparin Sodium 40 MG/0.4 ML SYRINGE SUBCUT (08:34)
[2024-07-06] MEDS: lisinopriL 20 MG TABLET PO (08:34)
[2024-07-06] MEDS: methADONE HCl 20 MG/2 ML ORAL.CONC 120 MG PO (08:35)
[2024-07-06] MEDS: 0.9 % Sodium Chloride Flush 3 ML SYRINGE IVFLUSH ×3 (08:36→21:31)
[2024-07-06] MEDS: Insulin Lispro 100 UNIT/ML 3 ML VIAL SUBCUT ×4 (08:36→21:31)
--- NOTE | 2024-07-06 10:32 | HO.PM.IMPN ---
Subjective Subjective Date of Service: 07/06/24 Interval History: Feeling better, complaining of nausea, but no episodes of vomiting, no abdominal pain, no diarrhea, no fevers, no chills, no other acute issues overnight. Review of Systems All other system reviewed and are negative Physical Exam Vital Signs: Vital Signs: Last Vital Signs Temp 98.3 F 07/06/24 07:59 Pulse 78 07/06/24 07:59 Resp 18 07/06/24 07:59 BP 176/91 H 07/06/24 07:59 Pulse Ox 96 07/06/24 07:59 O2 Del Method Room Air 07/06/24 07:59 BMI result Body Mass Index 40.7 Const: Other: General resting comfortably in no acute distress. Neck no JVD. CVS regular rate rhythm, Respiratory lungs clear to auscultation, no respiratory distress, no wheeze, no rhonchi. Gastrointestinal abdomen soft, nontender, bowel sounds audible, no guarding Extremities no edema. Neuro non focal Skin left forearm wound see pictures in wound consult, no drainage noted, unchanged from before Right foot 1st proximal phalanx wound, dressing in place, no drainage noted, see pictures in wound care notes Objective Data Active Medications Acetaminophen (Acetaminophen 325 Mg Tablet) 650 mg PO Q6H PRN PRN Reason: Pain, Mild (Pain Scale 1-3), fever or headache Al Hydroxide/Mg Hydroxide (Magnesium Hydrox/Alum Hydrox 30 Ml Oral.Susp) 30 ml PO Q6H PRN PRN Reason: Heartburn Last Admin: 07/04/24 11:34 Dose: 30 ml Documented By: HARISH Amlodipine Besylate (Amlodipine Besylate 2.5 Mg Tablet) 7.5 mg PO BEDTIME [facility]; Protocol Last Admin: 07/05/24 20:01 Dose: 7.5 mg Documented By: LYSJose Manuel Calcium Carbonate (Calcium Carbonate 750 Mg Tab.Chew) 750 mg PO Q4H PRN PRN Reason: Heartburn Enoxaparin Sodium (Enoxaparin Sodium 40 Mg/0.4 Ml Syringe) 40 mg SUBCUT Q24H [facility] Last Admin: 07/06/24 08:34 Dose: 40 mg Documented By: ATRI Glucose (Glucose Gel 15 Gm Gel..Gram.) 15 gm PO Q15M PRN; Protocol PRN Reason: per Hypoglycemia Standing Ord. Dextrose (D10) 250 mls @ 750 mls/hr IV Q15M PRN; Protocol PRN Reason: per Hypoglycemia Standing Ord. Piperacillin Sod/Tazobactam (Sod 3.375 gm/ Sodium Chloride) 50 mls @ 100 mls/hr IV Q6H [facility] Last Admin: 07/06/24 08:34 Dose: 100 mls/hr Documented By: ARTI Vancomycin HCl 1,000 mg/ (Sodium Chloride) 270 mls @ 270 mls/hr IV Q8H [facility] Last Infusion: 07/06/24 04:52 Dose: Infused Documented By: GERRI Insulin Glargine (Insulin Glargine,Hum.Rec.Anlog 100 Unit/Ml 10 Ml Vial) 20 unit SUBCUT BEDTIME [facility] Last Admin: 07/05/24 21:14 Dose: 20 unit Documented By: GERRI Insulin Human Lispro (Insulin Lispro 100 Unit/Ml 3 Ml Vial) 0 unit SUBCUT QIDACHS [facility]; Protocol Last Admin: 07/06/24 08:36 Dose: 8 unit Documented By: RATI Lisinopril (Lisinopril 20 Mg Tablet) 20 mg PO DAILY [facility]; Protocol Last Admin: 07/06/24 08:34 Dose: 20 mg Documented By: ARTI Magnesium Hydroxide (Milk Of Magnesia 30 Ml Oral.Susp) 30 ml PO DAILY PRN PRN Reason: Constipation Melatonin (Melatonin 3 Mg Tablet) 6 mg PO BEDTIME PRN PRN Reason: Insomnia Methadone HCl (Methadone Hcl 20 Mg/2 Ml Oral.Conc) 120 mg PO DAILY [facility] Last Admin: 07/06/24 08:35 Dose: 120 mg Documented By: ARTI Co-signed By: DENIA Metoclopramide HCl (Metoclopramide Hcl 10 Mg/2 Ml Vial) 5 mg IVPUSH Q4H PRN PRN Reason: Nausea and Vomiting Last Admin: 07/06/24 06:30 Dose: 5 mg Documented By: GERRI Morphine Sulfate (Morphine Sulfate 4 Mg/Ml Cartridge) 4 mg IVPUSH Q4H PRN; Protocol PRN Reason: Pain, Severe (Pain Scale 7-10) Last Admin: 07/05/24 07:52 Dose: 4 mg Documented By: ROBERT Ondansetron HCl (Ondansetron Hcl 4 Mg/2 Ml Vial) 4 mg IVPUSH Q4H PRN PRN Reason: Nausea and Vomiting Last Admin: 07/05/24 19:59 Dose: 4 mg Documented By: GERRI Oxycodone HCl (Oxycodone Hcl Immed Release 5 Mg Tablet) 5 mg PO Q4H PRN PRN Reason: Pain, Moderate(Pain Scale 4-6) Last Admin: 07/04/24 12:45 Dose: 5 mg Documented By: HARISH Pharmacy Consult (Consult Rx Vancomycin Dosing) 1 each MISCELLANE DAILY PRN PRN Reason: Consult order Sodium Chloride (0.9 % Sodium Chloride Flush 3 Ml Syringe) 3 ml IVFLUSH [facility] Last Admin: 07/06/24 08:36 Dose: 3 ml Documented By: ARTI Labs 07/06/24 05:56 07/05/24 06:18 Labs: Laboratory Results - last 24 hr 07/05/24 07/05/24 07/05/24 11:50 16:01 21:04 MCV MCH MCHC RDW Plt Count MPV Immature Gran % (Auto) Neut % (Auto) Lymph % (Auto) [place] % (Auto) Eos % (Auto) Baso % (Auto) Lymph # (Auto) [place] # (Auto) Eos # (Auto) Baso # (Auto) Abs Immat Gran (auto) Absolute Neuts (auto) Absolute Nucleated RBC Nucleated RBC % (auto) POC Glucose 349 H 282 H 231 H 07/06/24 07/06/24 05:56 07:59 MCV 76.9 L MCH 25.3 L MCHC 32.9 RDW 13.3 Plt Count 421 H MPV 8.6 L Immature Gran % (Auto) 0.4 Neut % (Auto) 65.0 Lymph % (Auto) 27.0 [place] % (Auto) 6.7 Eos % (Auto) 0.5 Baso % (Auto) 0.4 Lymph # (Auto) 3.0 [place] # (Auto) 0.7 Eos # (Auto) 0.1 Baso # (Auto) 0.1 Abs Immat Gran (auto) 0.05 H Absolute Neuts (auto) 7.2 Absolute Nucleated RBC 0.000 Nucleated RBC % (auto) 0.0 POC Glucose 262 H Assessment and Plan (1) Hypertension: Status: Acute (2) Opioid use disorder: Status: Acute (3) Morbid obesity: Status: Acute (4) Diabetes: Status: Acute (5) Gastroparesis: Status: Acute (6) Osteomyelitis: Status: Acute Plan 39-year-old female with a past medical history significant for insulin-dependent diabetes, IV drug use, chronic left arm ulcer, gastroparesis, hypertension, obesity and PCOS who presented to the ED last night with severe nausea vomiting and right great toe infection. She has been without her insulin for the past 3 months. She has a known diagnosis of gastroparesis, likely exacerbated due to poor diabetic control. New osteomyelitis right great toe, no previous history. Recently admissions for MSSA bacteremia, perirectal abscess and DKA (in ICU). 1.Osteomyelitis right great toe(sepsis resolved) -x-ray highly suspect for osteo; MRI ordered patient could not complete study secondary to nausea -on IV vancomycin and IV Zosyn started , pending MRI, blood cultures x2 negative, DC IV Zosyn -duplex study showed normal arterial flow -ID consult pending, will DC vascular surgery consult 2. Diabetic gastroparesis -question component of opiate withdrawal -nausea ,vomiting improving, continue IV Reglan prn , DC Zofran -aggressive treatment of blood sugars 2.Insulin-dependent diabetes - elevated blood sugars in 300 on lispro correctional scale -, dose of Lantus increased to 20, and adjusted insulin sliding scale on 07/05 3.HTN - continue lisinopril dose increased to 20 and amlodipine 5 mg follow BP on current dosage 4. Opiate abuse -methadone as ordered 5. Class 3 obesity recommend low-calorie diet Full code Lovenox Patient will require ongoing hospitalization for IV antibiotics and specialty consultation. Quality Stroke Does the patient have a stroke diagnosis?: No VTE Prior VTE?: No VTE Risk Level:: Medical - moderate - high VTE Device Contraindication: Procedure Contraindicated VTE Drug Contraindication: N/A - Med Ordered
[2024-07-06 10:38] LABS: Anion Gap 17 (12-20); Blood Urea Nitrogen 8 mg/dL (9-16); Calcium 8.9 mg/dL (8.4-10.2); Carbon Dioxide 24 mmol/L (22-29); Chloride 97 mmol/L (96-108); Creatinine Clr Calc Pharmacy 123.2; Estimated Glomerular Filt Rate > 60; Glucose Random 253 mg/dL (60-115); Potassium 3.8 mmol/L (3.3-5.1); Sodium 134 mmol/L (135-145)
[2024-07-06 11:14] LABS: Glucose, Whole Blood 319 mg/dL (60-115)
[2024-07-06 11:22] VITALS: BP 130/92; PULSE 88
[2024-07-06 15:21] VITALS: BP 136/75; PULSE 65; TEMP 36.6; O2SAT 96
[2024-07-06 16:25] LABS: Glucose, Whole Blood 186 mg/dL (60-115)
[2024-07-06 19:11] VITALS: BP 132/76; PULSE 67; RESP 16; TEMP 36.5; O2SAT 96
[2024-07-06 21:01] LABS: Glucose, Whole Blood 275 mg/dL (60-115)
[2024-07-06 21:30] VITALS: BP 132/76
[2024-07-06] MEDS: amLODIPine Besylate 2.5 MG TABLET 7.5 MG PO (21:30)
[2024-07-06] MEDS: Insulin Glargine,Hum.rec.anlog 100 UNIT/ML 10 ML VIAL 20 UNIT SUBCUT (21:31)
[2024-07-07 03:05] VITALS: BP 144/86; PULSE 68; RESP 17; TEMP 36; O2SAT 95
[2024-07-07] MEDS: vancomycin HCL 1,000 MG in 0.9 % Sodium Chloride 250 ML 270 MG IV (05:45)
[2024-07-07 06:46] LABS: Creatinine Clr Calc Pharmacy 127.7; Estimated Glomerular Filt Rate > 60
[2024-07-07 07:28] LABS: Glucose, Whole Blood 218 mg/dL (60-115)
[2024-07-07 07:33] LABS: CRP High Sensitivity >20.0 mg/L
[2024-07-07 07:56] VITALS: BP 142/81; PULSE 62; RESP 18; TEMP 36.6; O2SAT 96
[2024-07-07] MEDS: lisinopriL 20 MG TABLET PO (07:56)
[2024-07-07] MEDS: 0.9 % Sodium Chloride Flush 3 ML SYRINGE IVFLUSH (07:56)
[2024-07-07] MEDS: Insulin Lispro 100 UNIT/ML 3 ML VIAL SUBCUT ×4 (07:56→20:54)
[2024-07-07] MEDS: methADONE HCl 20 MG/2 ML ORAL.CONC 120 MG PO (07:57)
[2024-07-07] MEDS: Enoxaparin Sodium 40 MG/0.4 ML SYRINGE SUBCUT (08:01)
[2024-07-07 11:16] LABS: Glucose, Whole Blood 281 mg/dL (60-115)
--- NOTE | 2024-07-07 15:29 | MHC.CM.PN ---
EMR REVIEWED, PER HOSPITALIST PT WILL NEED 6WKS IV VANCO TID PER ID, SNF REFERRAL PLACED AND PT WILL NEED GUEST DOSING FOR METHADONE, CM WILL CONT TO FOLLOW DC NEEDS.
[2024-07-07 15:33] VITALS: BP 138/74; PULSE 65; RESP 17; TEMP 36.8; O2SAT 96
[2024-07-07 16:03] LABS: Glucose, Whole Blood 203 mg/dL (60-115)
--- NOTE | 2024-07-07 16:05 | P.PNIM_ITS ---
Subjective Subjective Date of Service: 07/07/24 Interval History: Feeling better this morning no nausea, no vomiting, no headache, no other acute events overnight, denies pain, no fevers, no chills. Review of Systems All other symptoms reviewed and are negative Physical Exam 2 Vital Signs: Vital Signs: Last Vital Signs Temp 98.2 F 07/07/24 15:33 Pulse 65 07/07/24 15:33 Resp 17 07/07/24 15:33 BP 138/74 07/07/24 15:33 Pulse Ox 96 07/07/24 15:33 O2 Del Method Room Air 07/07/24 15:33 BMI result Body Mass Index 40.7 Const: Other: General resting comfortably in no acute distress. Neck no JVD. CVS regular rate rhythm, Respiratory lungs clear to auscultation, no respiratory distress, no wheeze, no rhonchi. Gastrointestinal abdomen soft, nontender, bowel sounds audible, no guarding Extremities no edema. Neuro non focal Skin left forearm wound see pictures in wound consult, no drainage noted, unchanged from before Right foot 1st proximal phalanx wound, mild purulent drainage noted, see pictures in wound care notes Objective Data Active Medications Acetaminophen (Acetaminophen 325 Mg Tablet) 650 mg PO Q6H PRN PRN Reason: Pain, Mild (Pain Scale 1-3), fever or headache Al Hydroxide/Mg Hydroxide (Magnesium Hydrox/Alum Hydrox 30 Ml Oral.Susp) 30 ml PO Q6H PRN PRN Reason: Heartburn Last Admin: 07/04/24 11:34 Dose: 30 ml Documented By: HARISH Amlodipine Besylate (Amlodipine Besylate 2.5 Mg Tablet) 7.5 mg PO BEDTIME [facility]; Protocol Last Admin: 07/06/24 21:30 Dose: 7.5 mg Documented By: CASTILJunaid Calcium Carbonate (Calcium Carbonate 750 Mg Tab.Chew) 750 mg PO Q4H PRN PRN Reason: Heartburn Enoxaparin Sodium (Enoxaparin Sodium 40 Mg/0.4 Ml Syringe) 40 mg SUBCUT Q24H [facility] Last Admin: 07/07/24 08:01 Dose: 40 mg Documented By: GUSTAVO Glucose (Glucose Gel 15 Gm Gel..Gram.) 15 gm PO Q15M PRN; Protocol PRN Reason: per Hypoglycemia Standing Ord. Dextrose (D10) 250 mls @ 750 mls/hr IV Q15M PRN; Protocol PRN Reason: per Hypoglycemia Standing Ord. Vancomycin HCl 1,250 mg/ (Sodium Chloride) 250 mls @ 166.667 mls/hr IV Q8H [facility] Insulin Glargine (Insulin Glargine,Hum.Rec.Anlog 100 Unit/Ml 10 Ml Vial) 20 unit SUBCUT BEDTIME [facility] Last Admin: 07/06/24 21:31 Dose: 20 unit Documented By: JOHN PAUL Insulin Human Lispro (Insulin Lispro 100 Unit/Ml 3 Ml Vial) 0 unit SUBCUT QIDACHS [facility]; Protocol Last Admin: 07/07/24 11:45 Dose: 8 unit Documented By: GUSTAVO Lisinopril (Lisinopril 20 Mg Tablet) 20 mg PO DAILY [facility]; Protocol Last Admin: 07/07/24 07:56 Dose: 20 mg Documented By: GUSTAVO Magnesium Hydroxide (Milk Of Magnesia 30 Ml Oral.Susp) 30 ml PO DAILY PRN PRN Reason: Constipation Melatonin (Melatonin 3 Mg Tablet) 6 mg PO BEDTIME PRN PRN Reason: Insomnia Methadone HCl (Methadone Hcl 20 Mg/2 Ml Oral.Conc) 120 mg PO DAILY [facility] Last Admin: 07/07/24 07:57 Dose: 120 mg Documented By: GUSTAVO Co-signed By: GENOVEVA Metoclopramide HCl (Metoclopramide Hcl 10 Mg/2 Ml Vial) 5 mg IVPUSH Q4H PRN PRN Reason: Nausea and Vomiting Last Admin: 07/06/24 12:58 Dose: 5 mg Documented By: ARTI Morphine Sulfate (Morphine Sulfate 4 Mg/Ml Cartridge) 4 mg IVPUSH Q4H PRN; Protocol PRN Reason: Pain, Severe (Pain Scale 7-10) Last Admin: 07/05/24 07:52 Dose: 4 mg Documented By: COTMATT Oxycodone HCl (Oxycodone Hcl Immed Release 5 Mg Tablet) 5 mg PO Q4H PRN PRN Reason: Pain, Moderate(Pain Scale 4-6) Last Admin: 07/04/24 12:45 Dose: 5 mg Documented By: HARISH Pharmacy Consult (Consult Rx Vancomycin Dosing) 1 each MISCELLANE DAILY PRN PRN Reason: Consult order Sodium Chloride (0.9 % Sodium Chloride Flush 3 Ml Syringe) 3 ml IVFLUSH QSHIFT [facility] Last Admin: 07/07/24 07:56 Dose: 3 ml Documented By: GUSTAVO Labs 07/06/24 05:56 07/07/24 05:04 Labs: Laboratory Results - last 24 hr 07/04/24 07/06/24 07/06/24 05:30 16:21 20:17 Estim Creat Clear Calc Estimated GFR POC Glucose 186 H 275 H C-React Prot High Sens >20.0 H Random Vancomycin 07/07/24 07/07/24 07/07/24 05:04 07:23 11:13 Estim Creat Clear Calc 127.7 Estimated GFR > 60 POC Glucose 218 H 281 H C-React Prot High Sens Random Vancomycin 07/07/24 07/07/24 13:05 16:00 Estim Creat Clear Calc Estimated GFR POC Glucose 203 H C-React Prot High Sens Random Vancomycin 10.0 L Assessment and Plan (1) Hypertension: Status: Acute (2) Opioid use disorder: Status: Acute (3) Morbid obesity: Status: Acute (4) Sepsis: Status: Acute (5) Diabetes: Status: Acute (6) Gastroparesis: Status: Acute Plan 39-year-old female with a past medical history significant for insulin-dependent diabetes, IV drug use, chronic left arm ulcer, gastroparesis, hypertension, obesity and PCOS who presented to the ED last night with severe nausea vomiting and right great toe infection. She has been without her insulin for the past 3 months. She has a known diagnosis of gastroparesis, likely exacerbated due to poor diabetic control. New osteomyelitis right great toe, no previous history. Recently admissions for MSSA bacteremia, perirectal abscess and DKA (in ICU). 1.Osteomyelitis right great toe(sepsis resolved) -x-ray highly suspect for osteo; MRI foot showed small tissue ulceration and cellulitis along the plantar aspect of 1st interphalangeal joint with probable fistulization through the skin to the level of interphalangeal joint, with moderate joint effusion findings consistent with acute osteomyelitis/septic arthritis -on IV vancomycin blood cultures x2 negative -duplex study showed normal arterial flow -case discussed with ID she recommend 6 weeks of IV antibiotic -will order PICC line placement/PT for possible placement for IV antibiotics 2. Diabetic gastroparesis -and likely component of opiate withdrawal -nausea ,vomiting resolved, continue IV Reglan prn -aggressive treatment of blood sugars 2.Insulin-dependent diabetes - blood sugars improved but remains in 200 range, will increase dose of Lantus to 25 units and continue insulin sliding scale. Ernesto 3.HTN - continue lisinopril 20 and amlodipine 7.5 mg , better blood pressure control 4. Opiate abuse -methadone as ordered 5. Class 3 obesity recommend low-calorie diet. Full code Lovenox Patient will require ongoing hospitalization for IV antibiotics and specialty consultation. Quality Stroke Does the patient have a stroke diagnosis?: No VTE Prior VTE?: No VTE Risk Level:: Medical - moderate - high VTE Device Contraindication: Procedure Contraindicated VTE Drug Contraindication: N/A - Med Ordered
[2024-07-07] MEDS: vancomycin HCL 1,250 MG in 0.9 % Sodium Chloride 250 ML 166.67 MG IV (17:54)
[2024-07-07 19:41] VITALS: BP 135/63; PULSE 54; RESP 17; TEMP 36; O2SAT 98
[2024-07-07 20:32] LABS: Glucose, Whole Blood 242 mg/dL (60-115)
[2024-07-07] MEDS: Insulin Glargine,Hum.rec.anlog 100 UNIT/ML 10 ML VIAL 25 UNIT SUBCUT (20:53)
[2024-07-07] MEDS: amLODIPine Besylate 2.5 MG TABLET 7.5 MG PO (20:53)
[2024-07-08] MEDS: 0.9 % Sodium Chloride Flush 3 ML SYRINGE IVFLUSH ×3 (01:00→16:43)
[2024-07-08] MEDS: vancomycin HCL 1,250 MG in 0.9 % Sodium Chloride 250 ML 166.67 MG IV ×2 (01:54→10:23)
[2024-07-08 03:45] VITALS: BP 122/64; PULSE 56; RESP 16; TEMP 36.1; O2SAT 94
[2024-07-08 06:06] LABS: Creatinine Clr Calc Pharmacy 145.4; Estimated Glomerular Filt Rate > 60
[2024-07-08 07:41] LABS: Glucose, Whole Blood 183 mg/dL (60-115)
[2024-07-08 07:58] VITALS: BP 126/69; PULSE 68; RESP 17; TEMP 36.8; O2SAT 95
[2024-07-08] MEDS: lisinopriL 20 MG TABLET PO (07:58)
[2024-07-08] MEDS: methADONE HCl 20 MG/2 ML ORAL.CONC 120 MG PO (07:59)
[2024-07-08] MEDS: Insulin Lispro 100 UNIT/ML 3 ML VIAL SUBCUT ×4 (07:59→21:01)
[2024-07-08] MEDS: Enoxaparin Sodium 40 MG/0.4 ML SYRINGE SUBCUT (07:59)
[2024-07-08 11:32] LABS: Glucose, Whole Blood 338 mg/dL (60-115)
--- NOTE | 2024-07-08 13:41 | HO.PM.IMPN ---
Subjective Subjective Date of Service: 07/08/24 Interval History: Feeling better no nausea, no vomiting, no acute pain, has no primary care physician , therefore noncompliant with medications , wishes to have a routine follow-up, denies fever, no chills tolerating diet no other acute events overnight. Review of Systems All other system reviewed and are negative. Physical Exam Vital Signs: Vital Signs: Last Vital Signs Temp 98.2 F 07/08/24 07:58 Pulse 68 07/08/24 07:58 Resp 17 07/08/24 07:58 BP 126/69 07/08/24 07:58 Pulse Ox 95 07/08/24 07:58 O2 Del Method Room Air 07/08/24 07:58 BMI result Body Mass Index 40.7 Const: Other: General resting comfortably in no acute distress. Neck no JVD. CVS regular rate rhythm, Respiratory lungs clear to auscultation, no respiratory distress, no wheeze, no rhonchi. Gastrointestinal abdomen soft, nontender, bowel sounds audible, no guarding Extremities no edema. Neuro non focal Skin left forearm wound see pictures in wound consult, no drainage noted, unchanged from before, mild swelling right antecubital fossa at site of IV infiltration, no induration, no redness. Right foot 1st proximal phalanx wound, mild purulent drainage noted, see pictures in wound care notes Objective Data Active Medications Acetaminophen (Acetaminophen 325 Mg Tablet) 650 mg PO Q6H PRN PRN Reason: Pain, Mild (Pain Scale 1-3), fever or headache Al Hydroxide/Mg Hydroxide (Magnesium Hydrox/Alum Hydrox 30 Ml Oral.Susp) 30 ml PO Q6H PRN PRN Reason: Heartburn Last Admin: 07/04/24 11:34 Dose: 30 ml Documented By: HARISH Amlodipine Besylate (Amlodipine Besylate 2.5 Mg Tablet) 7.5 mg PO BEDTIME [facility]; Protocol Last Admin: 07/07/24 20:53 Dose: 7.5 mg Documented By: APULINE Calcium Carbonate (Calcium Carbonate 750 Mg Tab.Chew) 750 mg PO Q4H PRN PRN Reason: Heartburn Enoxaparin Sodium (Enoxaparin Sodium 40 Mg/0.4 Ml Syringe) 40 mg SUBCUT Q24H [facility] Last Admin: 07/08/24 07:59 Dose: 40 mg Documented By: GUSTAVO Glucose (Glucose Gel 15 Gm Gel..Gram.) 15 gm PO Q15M PRN; Protocol PRN Reason: per Hypoglycemia Standing Ord. Dextrose (D10) 250 mls @ 750 mls/hr IV Q15M PRN; Protocol PRN Reason: per Hypoglycemia Standing Ord. Vancomycin HCl 1,250 mg/ (Sodium Chloride) 250 mls @ 166.667 mls/hr IV Q8H [facility] Last Infusion: 07/08/24 11:58 Dose: Infused Documented By: GUSTAVO Insulin Glargine (Insulin Glargine,Hum.Rec.Anlog 100 Unit/Ml 10 Ml Vial) 25 unit SUBCUT BEDTIME [facility] Last Admin: 07/07/24 20:53 Dose: 25 unit Documented By: PAULINE Insulin Human Lispro (Insulin Lispro 100 Unit/Ml 3 Ml Vial) 0 unit SUBCUT QIDACHS [facility]; Protocol Last Admin: 07/08/24 11:39 Dose: 12 unit Documented By: GUSTAVO Lisinopril (Lisinopril 20 Mg Tablet) 20 mg PO DAILY [facility]; Protocol Last Admin: 07/08/24 07:58 Dose: 20 mg Documented By: GUSTAVO Magnesium Hydroxide (Milk Of Magnesia 30 Ml Oral.Susp) 30 ml PO DAILY PRN PRN Reason: Constipation Melatonin (Melatonin 3 Mg Tablet) 6 mg PO BEDTIME PRN PRN Reason: Insomnia Methadone HCl (Methadone Hcl 20 Mg/2 Ml Oral.Conc) 120 mg PO DAILY [facility] Last Admin: 07/08/24 07:59 Dose: 120 mg Documented By: GUSTAVO Co-signed By: REN Metoclopramide HCl (Metoclopramide Hcl 10 Mg/2 Ml Vial) 5 mg IVPUSH Q4H PRN PRN Reason: Nausea and Vomiting Last Admin: 07/06/24 12:58 Dose: 5 mg Documented By: ARTI Morphine Sulfate (Morphine Sulfate 4 Mg/Ml Cartridge) 4 mg IVPUSH Q4H PRN; Protocol PRN Reason: Pain, Severe (Pain Scale 7-10) Last Admin: 07/05/24 07:52 Dose: 4 mg Documented By: COTMATT Oxycodone HCl (Oxycodone Hcl Immed Release 5 Mg Tablet) 5 mg PO Q4H PRN PRN Reason: Pain, Moderate(Pain Scale 4-6) Last Admin: 07/04/24 12:45 Dose: 5 mg Documented By: HARISH Pharmacy Consult (Consult Rx Vancomycin Dosing) 1 each MISCELLANE DAILY PRN PRN Reason: Consult order Sodium Chloride (0.9 % Sodium Chloride Flush 3 Ml Syringe) [facility] Last Admin: 07/08/24 07:59 Dose: 3 ml Documented By: GUSTAVO Labs 07/06/24 05:56 07/08/24 05:38 Labs: Laboratory Results - last 24 hr 07/07/24 07/07/24 07/07/24 13:05 16:00 20:26 Estim Creat Clear Calc Estimated GFR POC Glucose 203 H 242 H Random Vancomycin 10.0 L 07/08/24 07/08/24 07/08/24 05:38 07:37 11:14 Estim Creat Clear Calc 145.4 Estimated GFR > 60 POC Glucose 183 H 338 H Random Vancomycin Microbiology Microbiology Results: Microbiology 07/02/24 23:58 Blood Culture - Final Blood - Venous No growth after 5 days. 07/02/24 23:57 Blood Culture - Final Blood - Venous No growth after 5 days. Assessment and Plan (1) Hypertension: Status: Acute (2) Opioid use disorder: Status: Acute Plan 39-year-old female with a past medical history significant for insulin-dependent diabetes, IV drug use, chronic left arm ulcer, gastroparesis, hypertension, obesity and PCOS who presented to the ED last night with severe nausea vomiting and right great toe infection. She has been without her insulin for the past 3 months. She has a known diagnosis of gastroparesis, likely exacerbated due to poor diabetic control. New osteomyelitis right great toe, no previous history. Recently admissions for MSSA bacteremia, perirectal abscess and DKA (in ICU). 1.Osteomyelitis right great toe(sepsis resolved) -x-ray highly suspect for osteo; MRI foot showed small tissue ulceration and cellulitis along the plantar aspect of 1st interphalangeal joint with probable fistulization through the skin to the level of interphalangeal joint, with moderate joint effusion findings consistent with acute osteomyelitis/septic arthritis -on IV vancomycin blood cultures x2 negative -duplex study showed normal arterial flow -case discussed with ID she recommend 6 weeks of IV antibiotic -PICC line placement and cm arranging for rehab bed for IV antibiotics ending August 14 2. Nausea vomiting likely due to Diabetic gastroparesis and likely component of opiate withdrawal -nausea ,vomiting resolved, on IV Reglan prn 2.Insulin-dependent diabetes - blood sugars improved but remains elevated on Lantus 25 units and insulin sliding scale. 3.HTN - continue lisinopril 20 and amlodipine 7.5 mg , blood sugars improved 4. Opiate abuse -methadone as ordered, counseling done 5. Class 3 obesity recommend low-calorie diet. Full code Lovenox Patient will require ongoing hospitalization for IV antibiotics and PICC line placement and safe disposition to rehab to finish course of IV antibiotics Quality Stroke Does the patient have a stroke diagnosis?: No VTE Prior VTE?: No VTE Risk Level:: Medical - moderate - high VTE Device Contraindication: Procedure Contraindicated VTE Drug Contraindication: N/A - Med Ordered
--- NOTE | 2024-07-08 15:53 | HO.PICC ---
PICC Line Insertion NPICC Diagnosis: great toe infection Indication: jail ABT Pertinent Labs: reviewed Technique: Following informed consent including risks, benefits and alternatives and using sterile technique including cap and mask, sterile gown, glove and drape, the right arm was prepped and draped in the usual sterile fashion of full barrier technique with CHG. Following completion of [place] Protocol the skin and soft tissues were anesthetized with 1% Lidocaine plain. Using ultrasound guidance, right basilic vein access was obtained. Over an 0.018 wire through peel-away sheath, a 4FR single lumen PASV PICC line was positioned. Catheter length is 42cm internal length, 0cm external length, for a total trimmed length of 42cm. The procedure was performed in count includes the [facility]. Tip verification was performed by Tristan Peterson with Sherlock 3CG. Tip located in SVC. Ultrasound was used to document vein patency and for needle entry. A formal ultrasound picture and cardiac rhythm strip was recorded. Vascular Solid Fiber Paster Operator has released the line for use and it is currently dressed with a StatLock, Tegaderm, and CHG disc. Verification has been performed for blood return and line patency. Arm Circumference: 48cm Equipment: [employer] Floor[employer] PowerPICC SOLO Catheter with sherlock 3CG tip Catheter Type: 4FR single lumen PASV Lot #: [id number]
[2024-07-08 16:36] VITALS: BP 133/90; PULSE 67; RESP 18; TEMP 37; O2SAT 99
[2024-07-08 16:38] LABS: Glucose, Whole Blood 209 mg/dL (60-115)
[2024-07-08 19:29] VITALS: BP 118/71; PULSE 69; RESP 18; TEMP 36.3; O2SAT 99
[2024-07-08 20:31] LABS: Glucose, Whole Blood 211 mg/dL (60-115)
[2024-07-08 20:58] VITALS: BP 151/79
[2024-07-08] MEDS: amLODIPine Besylate 5 MG TABLET PO (20:58)
[2024-07-08] MEDS: Insulin Glargine,Hum.rec.anlog 100 UNIT/ML 10 ML VIAL 25 UNIT SUBCUT (21:01)
--- NOTE | 2024-07-09 03:01 | PC.NURSE ---
ok to give 0200 vanco dose per night pharmacy. Concern was that due to high trough yesterday this dose is to be given without rechecking trough. Next trough is ordered for today 1600
[2024-07-09] MEDS: vancomycin HCL 1,000 MG in 0.9 % Sodium Chloride 250 ML 270 MG IV ×2 (03:21→09:13)
[2024-07-09 03:22] VITALS: BP 122/67; PULSE 65; RESP 16; TEMP 36.4; O2SAT 97
[2024-07-09] MEDS: 0.9 % Sodium Chloride Flush 3 ML SYRINGE IVFLUSH ×2 (03:22→07:58)
[2024-07-09 07:09] LABS: Creatinine Clr Calc Pharmacy 141.4; Estimated Glomerular Filt Rate > 60
[2024-07-09 07:21] LABS: Estimated Average Glucose 306 mg/dL; Hemoglobin A1C 334.2752 umol/L; Hemoglobin A1c % 12.3 % (<6.0); Total Hemoglobin (HGBA1C) 3000.5069 umol/L
[2024-07-09 07:32] VITALS: BP 110/65; PULSE 63; RESP 16; TEMP 36.2; O2SAT 97
[2024-07-09] MEDS: methADONE HCl 20 MG/2 ML ORAL.CONC 120 MG PO (07:55)
[2024-07-09] MEDS: Enoxaparin Sodium 40 MG/0.4 ML SYRINGE SUBCUT (07:55)
[2024-07-09] MEDS: Insulin Lispro 100 UNIT/ML 3 ML VIAL SUBCUT ×2 (07:56→11:37)
[2024-07-09 08:01] LABS: Glucose, Whole Blood 281 mg/dL (60-115)
[2024-07-09 08:02] VITALS: BP 110/65
[2024-07-09] MEDS: lisinopriL 20 MG TABLET PO (08:02)
--- NOTE | 2024-07-09 11:01 | PM.DS ---
DS: Providers Provider Date of Service: 07/09/24 Date of admission: 07/03/24 09:21 Date of discharge: 07/09/24 Primary care physician: None Physician Consults: 07/03/24 09:14 Addiction Medicine Routine Consulting Provider: Addiction Covering Reason for consultation: uses IV heroin, last use yesterday Has provider been notified: No 07/05/24 08:04 Consult to Infectious Diseases Routine Consulting Provider: [facility] Reason for consultation: rt great toe wound ? osteo Has provider been notified: No DS: Diagnosis Discharge Diagnosis (1) Hypertension: Status: Acute (2) Opioid use disorder: Status: Acute DS: Summary Hospital Course Hospital Course: History of presenting illness: Attending physician on admission: Anthony Greenwood Chief Complaint: nausea, vomiting, R great toe infection Patient is a 39-year-old female with a past medical history significant for insulin-dependent diabetes, IV drug use, chronic left arm ulcer, gastroparesis, hypertension, obesity and PCOS who presented to the ED last night with severe nausea vomiting and right great toe infection. She reports that she has been without her medications for blood pressure and diabetes since April due to lack of PCP. She has been vomiting severely since yesterday, bilious without any hematemesis. She also has generalized abdominal pain and heartburn. She denies any sick contacts or any upper respiratory symptoms including headache, runny nose, congestion, sore throat. No chest pain, shortness of breath or visual changes. She reports that she has had this toe infection for the past week. She does inject heroin, last use was yesterday, also on methadone. Hospital course: 39-year-old female with a past medical history significant for insulin-dependent diabetes, IV drug use, chronic left arm ulcer, gastroparesis, hypertension, obesity and PCOS who presented to the ED last night with severe nausea vomiting and right great toe infection,she has been without her insulin for the past 3 months,has a known diagnosis of gastroparesis, likely exacerbated due to poor diabetic control recently treated for MSSA bacteremia, perirectal abscess and DKA, admitted with right great toe infection/osteomyelitis. 1.Osteomyelitis right great toe ,x-ray highly suspicious for osteo, MRI foot showed small tissue ulceration and cellulitis along the plantar aspect of 1st interphalangeal joint with probable fistulization through the skin to the level of interphalangeal joint, with moderate joint effusion findings consistent with acute osteomyelitis/septic arthritis, patient treated with IV vancomycin blood cultures x2 showed no growth, duplex study showed normal arterial flow case discussed with ID she recommend 6 weeks of IV antibiotic , single lumen PASV PICC line placed on 07/08 and patient is being discharged to rehab facility for IV vancomycin ending August 14, recommend to follow vanco trough and Q weekly renal function, continue daily dressings. Now on vancomycin 1000 mg IV q.8 hours, vanco trough 21 on 07/08 2. Insulin-dependent diabetes, noted to have elevated blood sugars since has not been using insulin since has no PCP, also noted to have Nausea, vomiting likely due to Diabetic gastroparesis and likely component of opiate withdrawal, all symptoms resolved with antiemetics and good blood sugar control recommend to continue Lantus 25 units diabetic diet and insulin sliding scale. Monitor point of care q.i.d. 3.HTN recommend to continue lisinopril 20 mg and amlodipine 5 mg daily 4. Opiate abuse continue home dose of methadone 5. Class 3 obesity recommend low-calorie diet. Time Attestation Discharge Coordination Time (in mins): 40 Quality: Safe Use of Opioids Does Pt have an Active Cancer Diagnosis on the Problem List?: No Quality: Stroke Does the patient have a stroke diagnosis?: No Physical Exam Vital Signs: Vital Signs: Last Vital Signs Temp 97.1 F 07/09/24 07:32 Pulse 63 07/09/24 07:32 Resp 16 07/09/24 07:32 BP 110/65 07/09/24 08:02 Pulse Ox 97 07/09/24 07:32 O2 Del Method Room Air 07/09/24 07:32 BMI result Body Mass Index 40.7 Const: Other: General resting c omfortably in no a cute distress. N janie no JVD. CVS r egular rate rhythm , Respiratory lung s clear to auscult ation, no respirat ory distress, no w heeze, no rhonchi. Gastrointestinal abdomen soft, non tender, bowel soun ds audible, no gua rding Extremities no LE edema. Neuro non focal Skin l eft forearm dry de siccated wound bed , no odor, irregul ar edges Right fo ot 1st proximal ph alanx wound, mild purulent drainage noted. DS: Data Data Completed and Pending Completed studies during hospitalization [Text1]: Procedures Drainage of Buttock Subcutaneous Tissue and Fascia, Open Approach (02/21/24) Insertion of Infusion Device into Right Basilic Vein, Percutaneous Approach (02/28/24) Insertion of Infusion Device into Superior Vena Cava, Percutaneous Approach (02/21/24) Insertion of Infusion Device into Upper Vein, Percutaneous Approach (02/21/24) Ultrasonography of Superior Vena Cava, Guidance (02/21/24) Labs on day of discharge: Laboratory Results - last 24 hr 07/08/24 07/08/24 07/08/24 11:14 16:30 16:35 Creatinine Estim Creat Clear Calc Estimated GFR POC Glucose 338 H 209 H Estimat Average Glucose Hemoglobin A1c % Random Vancomycin 21.0 H 07/08/24 07/09/24 07/09/24 20:28 06:04 07:31 Creatinine 0.74 Estim Creat Clear Calc 141.4 Estimated GFR > 60 POC Glucose 211 H 281 H Estimat Average Glucose 306 Hemoglobin A1c % 12.3 H Random Vancomycin Discharge Plan Discharge Anticipated Discharge Date/Time: 07/08/24 10:59 Patient Disposition: [facility] Discharge Diagnosis: Right great toe osteomyelitis Diabetic gastroparesis Opiate use disorder Insulin-dependent diabetes Referrals: Physician,None [Primary Care Provider] - 1 Week Discharge Medications: New lisinopril 20 mg Tablet 20 mg PO DAILY Qty: 90 0RF Protocol: Hold for SBP< HOLD for SBP < : 90 insulin glargine [Lantus U-100 Insulin] 100 unit/mL Solution 25 unit subcut BEDTIME Qty: 30 0RF amlodipine 5 mg tablet 5 mg PO DAILY Qty: 90 0RF insulin lispro [Admelog U-100 Insulin lispro] 100 unit/mL Solution See Protocol subcut QIDACHS Qty: 30 0RF Protocol: Insulin Correction Scale Less than or equal to 110 ---- Give (units): 0 111 to 150 Give (units): 0 151 to 200 Give (units): 4 201 to 250 Give (units): 6 251 to 300 Give (units): 8 301 to 350 Give (units): 12 Greater than 350 Give (units): 14 Call MD if Blood Glucose > : 350 Rx Instructions: BG <111 0 units, 111-150 - 0 units, 151-200 2 units, 201-250 4 units, 251-300 6 units, 301-350 8 units, >350 10 units Continued methadone 10 mg/mL Concentrate 120 mg PO DAILY Rx Instructions: [facility] -[phone], LAST DOSE ON 07/01/24 @1129 PER [facility] Discharge Orders: Discharge Order (Routine); Ordered 07/09/24 Ordered By: Raffi Godoy Diet: Diabetic diet Activity on Discharge: As tolerated Stand Alone Forms: Patient Portal Discharge page Print Language: Malay Care Plan Goals: Osteomyelitis right great toe/ Continue IV vancomycin for total 6 weeks end date August 14 Monitor vanco trough, to adjust dose and renal function Q weekly Continue diabetic diet monitor point of care blood sugars q.i.d. a.c./HS Dressing change right great toe: 1. Turn and Reposition every 2 hours and as needed for patient comfort.? Use pillows or wedges to support off loading positions. 2. Off Load all bony prominences with use of pillows and heel boots if needed.? Apply Preventative foams where needed. ? 3. Provide adequate and supplemental nutrition. 4. Maintain blood glucose levels per Providers order. 5. Left Upper Arm - Cleanse with cleanser such as NS or wound cleanser, Pat dry. Apply skin prep to periwound, cover wound bed with xeroform cover with Foam dressing change every other day. Continue to seek topical care and treatment with [facility]. 6. Right Great Toe - Cleanse with NS, Apply skin prep to periwound. Lightly pack both wound bed sites with Durafiber AG cover with dry gauze. Change daily while inpatient. Left upper arm wound continue Moist wound healing with xeroform Health Concerns: Hypertension/diabetes recommend compliance with medications Continue methadone strongly advised to abstain from drug use Plan of Treatment: Outpatient follow-up with primary care physician upon discharge from rehab Assessment: As above
--- NOTE | 2024-07-09 11:17 | MHC.CM.PN ---
[facility] given [facility] pt
[2024-07-09 11:20] LABS: Glucose, Whole Blood 283 mg/dL (60-115)
== END 2024-07-09 14:15 | disposition skilled nursing facility (03) | DRG 344 ==
LOC: HO.ED 07-03 02:13 → HO.EDOVER 07-03 09:25 → HO.S3 07-03 12:01
PROVIDERS: Hospitalist; Internal Medicine; Admitting Provider Physician Assistant; Emergency Provider Emergency Medicine; Visit Provider Hospitalist
DX: E11.69 Type 2 diabetes mellitus with other specified complication (principal); M86.171 Other acute osteomyelitis, right ankle and foot; E11.621 Type 2 diabetes mellitus with foot ulcer; E11.43 Type 2 diabetes mellitus with diabetic autonomic (poly)neuropathy; K31.84 Gastroparesis; L97.519 Non-pressure chronic ulcer of other part of right foot with unspecified severity; E28.2 Polycystic ovarian syndrome; I10 Essential (primary) hypertension; E11.65 Type 2 diabetes mellitus with hyperglycemia; F11.20 Opioid dependence, uncomplicated; E66.813 Obesity, class 3; Z68.41 Body mass index [BMI] 40.0-44.9, adult; Z71.3 Dietary counseling and surveillance; T38.3X6A Underdosing of insulin and oral hypoglycemic [antidiabetic] drugs, initial encounter; L98.499 Non-pressure chronic ulcer of skin of other sites with unspecified severity; Z79.4 Long term (current) use of insulin; Z79.899 Other long term (current) drug therapy
CPT/HCPCS: 36415; 36573; 73660; 73720; 80048; 80053; 80202; 82565; 82947; 83036; 83605; 85025; 85652; 86140; 86141; 87040; 93005; 93926; 97161; 99285; A9585; C1751; J0295; J1650; J2270; J2405; J2543; J2765; J3370; J3371

== ENCOUNTER 2024-07-03 09:21 | Outpatient (BNV) | payer OTHER, SELFPAY | END 2024-07-03 10:07 | PROVIDERS: Admitting Provider Physician Assistant; Emergency Provider Emergency Medicine; Visit Provider Internal Medicine | DX: I45.81 Long QT syndrome (principal) | CPT/HCPCS: 93010 ==

== ENCOUNTER → 2024-07-03 09:21 | Outpatient (BNV) | payer OTHER, SELFPAY | PROVIDERS: Admitting Provider Physician Assistant; Emergency Provider Emergency Medicine; Visit Provider Internal Medicine | DX: F11.90 Opioid use, unspecified, uncomplicated (principal); K31.84 Gastroparesis | CPT/HCPCS: 99222 ==

== ENCOUNTER → 2024-07-03 09:21 | Outpatient (BNV) | payer OTHER, SELFPAY | PROVIDERS: Admitting Provider Physician Assistant; Emergency Provider Emergency Medicine; Visit Provider Physician Assistant | DX: I10 Essential (primary) hypertension (principal); F11.90 Opioid use, unspecified, uncomplicated | CPT/HCPCS: 99232; 99239 ==

== ENCOUNTER → 2024-07-03 09:21 | Outpatient (BNV) | payer OTHER, SELFPAY | PROVIDERS: Admitting Provider Physician Assistant; Emergency Provider Emergency Medicine; Visit Provider Physician Assistant Surgical | DX: M86.171 Other acute osteomyelitis, right ankle and foot (principal) | CPT/HCPCS: 99222; 99232 ==

== ENCOUNTER 2024-08-06 14:09 | Outpatient (REF) | payer OTHER, SELFPAY | END 2024-08-06 14:10 | disposition home or self-care (01) | LOC: HO.XRAY 14:09 | PROVIDERS: Visit Provider Internal Medicine | DX: M86.171 Other acute osteomyelitis, right ankle and foot (principal) | CPT/HCPCS: 73620; 99212 ==

== ENCOUNTER 2024-08-06 14:09 | Outpatient (AMB) | payer OTHER, SELFPAY ==
--- NOTE | 2024-08-06 14:09 | MHC.OFFVIS ---
Vital Signs 08/06/24 14:17 Height 5 ft 8 in Weight 283 lb BMI 43.0 Pulse 92 Pulse Source Pulse Oximeter Pulse Oximetry (%) 99 Intake Visit Reasons: [facility] reff Osteomylitis/vanco end 08/14/2024 Allergies No Known Allergies Allergy (Verified 08/17/24 11:01) HPI HPI [facility] reff Osteomylitis/vanco end 08/14/2024: Details: She has right toe OM. She is IVDU. She is done with antibiotics on 08/14. [facility] Medical History Opioid use disorder Hypertension Sepsis Depression PCOS (polycystic ovarian syndrome) Rash Polysubstance (excluding opioids) dependence, daily use Methadone maintenance therapy patient Anxiety and depression Diabetes Social History Household Members: Children Household Members Other:: daughter Housing: Apartment Do you presently have visiting nurse or other home services: No Alcohol intake: current Alcohol intake frequency: does not drink Patient Tobacco Use Status: Never used Tobacco Tobacco use type: Cigarette Cigarette Packs Per Day: 3 Cigarettes Per Day: 60.0 Years Smoked: 2 Smoked in Last 30 Days: No e-Cigarette/Vaping Use: Never Used Use of substances other than those prescribed or required for medical reasons: Yes Substance Use Type: Marijuana Substance Use Frequency: Daily Last Used Substance: Days (ago) Advance Directives: Yes Advance Directives on File: Yes Advance Directives Date on File: 01/11/22 Do you have a plan to hurt others: No Plan Patient : No service: No Current occupational status: unemployed Review of Systems Const All systems reviewed & are unremarkable except as noted in HPI and below Physical Exam Vital Signs: Last Vital Signs Pulse 92 08/06/24 14:17 Pulse Ox 99 08/06/24 14:17 BMI result Body Mass Index 43.0 Const Other: General: cooperative Orientation/consciousness: patient oriented x3 HEENT Head: Yes normal to inspection Mouth: Normal oral and palatal mucosa present Eyes General: appearance normal, both eyes and all related structures Pupils: Equal, round and reactive pupils present Resp Effort & Inspection: normal respiratory effort Cardio Rate: regular rate Rhythm: regular rhythm GI Palpation (GI): Soft to palpation and nontender General: Yes no CVA tenderness Back/Spine/Pelvis Back: no CVA tenderness Skin General skin exam: no rashes or lesions noted Neuro General: patient oriented x3 Cranial nerves: Yes CN's II-XII intact bilaterally and Yes Equal, round and reactive pupils present Extrem General: Yes normal to inspection Psych Appearance: grossly normal Assessment & Plan Assessment & Plan (1) Osteomyelitis: Comment: She is doing well. Code(s): M86.9 - Osteomyelitis, unspecified Category: Medical Qualifiers: Laterality: right Osteomyelitis location: foot Osteomyelitis type: other acute Qualified Code(s): M86.171 - Other acute osteomyelitis, right ankle and foot Plan: Finish with one month po Doxycycline. Orders: Orders IR cvc remove any age 1208/06/24 M86.171 - Other acute osteomyelitis, right ankle and foot XR foot RT 2V 08/06/24 M86.171 - Other acute osteomyelitis, right ankle and foot Medications: New doxycycline hyclate 100 mg PO BID 60 caps 0RF 30 days Coding Level of Care Code Est Pt Level 3 (92423) Diagnoses Other acute osteomyelitis of right foot M86.171 Laterality: right Osteomyelitis location: foot Osteomyelitis type: other acute
[2024-08-06 14:17] VITALS: PULSE 92; O2SAT 99; BMI 43.0
== END 2024-08-06 15:31 | disposition home or self-care (01) ==
PROVIDERS: Visit Provider Internal Medicine
DX: M86.171 Other acute osteomyelitis, right ankle and foot (principal)
CPT/HCPCS: 99213

== ENCOUNTER 2024-08-17 10:48 | Emergency (ER) | payer OTHER, SELFPAY ==
--- NOTE | 2024-08-17 | ECG_ITS ---
Test Reason : cp Blood Pressure : / mmHG Vent. Rate : 090 BPM Atrial Rate : 090 BPM P-R Int : 134 ms QRS Dur : 090 ms QT Int : 364 ms P-R-T Axes : 032 -15 022 degrees QTc Int : 445 ms Normal sinus rhythm Normal ECG When compared with ECG of 03-JUL-2024 10:07, No significant change was found Referred By: Generic ED Physician Electronically Signed By:LASHANDA CHAVEZ
--- NOTE | ~2024-08-17 | XR_ITS ---
EXAMINATION: XR CHEST CLINICAL INFORMATION: chest pain COMPARISON: None available. TECHNIQUE: 2 views of the chest were obtained. FINDINGS: No significant abnormality is noted involving the heart, lungs, mediastinum, bony thorax or soft tissues. XR/XR chest 2V IMPRESSION: Unremarkable examination. Electronically signed by: Maurisio Lee MD 08/17/2024 12:45 PM [facility]
[2024-08-17 10:57] VITALS: BP 144/96; PULSE 97; RESP 18; TEMP 36.6; O2SAT 100; BMI 42.3
--- NOTE | 2024-08-17 10:58 | ED_ITS ---
HPI - General Adult General Chief complaint: General Medical Stated complaint: Chest pain Time Seen by Provider: 08/17/24 11:46 Source: patient Mode of arrival: ambulatory Limitations: no limitations History of Present Illness HPI narrative: This is a 39-year-old female pmhx obesity, htn, opioid use d/o, diabetes, MSSA bacteremia, osteomyelitis, who presents to the emergency department for evaluation sore throat, described as pain only when swallowing or coughing x 3-4 days. She awoke this morning with chest pain that she is experiencing with deep inspiration and coughing only. Reports in June she was admitted here for osteomyelitis. She was sent to [facility] for IV antibiotics, had her PICC line removed 3 days ago. She is concerned that the chest pain is related to this pain substernal without radiation, intermittent. Additionally, she states that she requires medication refills for; Cymbalta, trazodone, and her diabetic test strips. NO hx of pe or dvt. Not on thinners Related Data Home Medications ?Medication ?Instructions ?Recorded ?Confirmed methadone 10 mg/mL oral concentrate 120 mg PO DAILY 07/03/24 07/03/24 duloxetine 20 mg capsule,delayed 20 mg PO BID 08/06/24 release (Cymbalta) trazodone 50 mg tablet 50 mg PO DAILY 08/06/24 Previous Rx's ?Medication ?Instructions ?Recorded amlodipine 5 mg tablet 5 mg PO DAILY #90 tabs 07/08/24 insulin glargine 100 unit/mL 25 unit (0.25 mL) subcut BEDTIME 07/08/24 subcutaneous solution (Lantus #30 mL U-100 Insulin) insulin lispro 100 unit/mL See Protocol subcut QIDACHS #30 mL 07/08/24 subcutaneous solution (Admelog U-100 Insulin lispro) lisinopril 20 mg tablet 20 mg PO DAILY #90 tabs 07/08/24 doxycycline hyclate 100 mg capsule 100 mg PO BID 30 days #60 caps 08/06/24 blood sugar diagnostic (FreeStyle #50 ea 08/17/24 Lite Strips) duloxetine 20 mg capsule,delayed 20 mg PO BID 2 weeks #28 caps 08/17/24 release nystatin 100,000 unit/mL oral 1 ml PO DAILY #60 mL 08/17/24 suspension trazodone 50 mg tablet 50 mg PO DAILY #14 tabs 08/17/24 Allergies Allergy/AdvReac Type Severity Reaction Status Date / Time No Known Allergies Allergy Verified 08/17/24 11:01 Review of Systems 2 Review of Systems: Yes all other systems are reviewed and are negative ON LICENSE OF [facility] Past Medical History Attestation statement: The following information was validated with the patient. Source: old records reviewed and nursing notes reviewed Medical History Opioid use disorder Hypertension Sepsis Depression PCOS (polycystic ovarian syndrome) Rash Polysubstance (excluding opioids) dependence, daily use Methadone maintenance therapy patient Anxiety and depression Diabetes Social History Social History Household Members: Children Household Members Other:: daughter Housing: Apartment Do you presently have visiting nurse or other home services: No Alcohol intake: current Alcohol intake frequency: does not drink Patient Tobacco Use Status: Never used Tobacco Tobacco use type: Cigarette Cigarette Packs Per Day: 3 Cigarettes Per Day: 60.0 Years Smoked: 2 Smoked in Last 30 Days: No e-Cigarette/Vaping Use: Never Used Use of substances other than those prescribed or required for medical reasons: Yes Substance Use Type: Marijuana Substance Use Frequency: Daily Last Used Substance: Days (ago) Advance Directives: Yes Advance Directives on File: Yes Advance Directives Date on File: 01/11/22 Do you have a plan to hurt others: No Plan Patient : No service: No Current occupational status: unemployed Physical Exam ED Vital Signs: Vital Signs - 24 hr 08/17/24 10:57 Temperature 97.9 F Pulse Rate 97 Respiratory Rate 18 Blood Pressure 144/96 H Pulse Oximetry 100 Oxygen Delivery Method Room Air BMI result Body Mass Index 42.3 vss Appearance: Alert.? Oriented X3.? No acute distress.? Head: Normocephalic, atraumatic, no step-offs or deformities Throat: No edema or erythema noted normal tonsillar pillars. Uvula midline. No abscess or exudate. Patient is noted to have thrush on her tongue. Eyes: Pupils equal, round and reactive to light.? CVS: Normal heart rate and rhythm.? Pulses normal.? Respiratory: No respiratory distress.? Breath sounds normal.? Abdomen: Soft and nontender.? Skin: Skin warm and dry.? Normal skin color.? Normal skin turgor.? Extremities: No lower extremity edema.? No calf ttp. 5/5 strength to bilateral upper and lower extremities Neuro: Oriented X 3.? No motor deficit.? No sensory deficit. CN 2-12 intact Course Course Course Narrative: This is an RME performed by Camille Baldwin CNP: Additional HPI, ROS, PE not included below will be deferred to primary provider. Patient is a 39-year-old female who presents to the emergency department for evaluation. She reports about 3 or 4 mornings ago she awoke with a sore throat, described as pain only when swallowing or coughing. She awoke this morning with chest pain that she is experiencing with deep inspiration and coughing. She reports that she had an admission to this hospital at the end of June for osteomyelitis. She was sent to [facility] for IV antibiotics, had her PICC line removed 3 days ago. She is concerned that the chest pain is related to this. Additionally, she states that she requires medication refills for; Cymbalta, trazodone, and her diabetic test strips Plan: Viral serologies, serum labs, ECG, CXR Reevaluation(s) Reevaluation #1: CBC with chronic leukocytosis not deviating from baseline. And a microcytic anemia is noted which appears to be around her baseline. No reports of bleeding. Chemistry pending negative troponin, no fever, tachycardia making endocarditis unlikely. Time: 13:08 Reevaluation #2: Patient extremely difficult stick IV attempted over 6 times without success also using ultrasound guidance. Time: 13:28 Reevaluation #3: CRP is elevated at 7.01 patient has just completed treatment for osteomyelitis in his being followed up by a different provider. Reports her right lower extremity symptoms/great toe is improving will have her follow-up with Wound Care for that. No signs of active infection at this time. D-dimer negative initial troponin negative nonischemic EKG 2nd troponin pending. Time: 14:18 Additional Reevaluation(s): Second trop negative. Patient home with strict return precautions advised her to return with any new or worsening symptoms. I did educate her on proper follow-up for her right toe osteomyelitis which she is getting seen for stressed the importance of following up with Infectious Disease and Wound Care. Educated patient on diagnosis and treatment plan, answered all question, patient verbalizes understanding. At this time patient will be discharged home, advised to return with new or worsening symptoms. Educated on worrisome signs and symptoms and when to return. At this time I feel comfortable discharge home. Medical Decision Making Medical Decision Making [facility] Narrative: 1150 39-year-old female presents with viral symptoms as well as chest pain viral symptoms for 3-4 days and chest pain since this morning. Physical exam benign. No murmurs auscultated History and physical exam concerning for symptoms/illness versus noncardiac related chest pain. Low suspicion for endocarditits, PE (PERC negative), ACS, ards, dissecion . Will rule out metabolic derangements. Sore throat likely viral in nature unlikely strep pharyngitis, peritonsillar abscess, retropharyngeal abscess, epiglottitis, Abel's Plan- labs, imaging, Differential Diagnosis Differential Diagnoses: The differential diagnosis associated with the presentation includes (History and physical exam concerning for symptoms/illness versus noncardiac related chest pain. Low suspicion for endocarditis, PE (PERC negative), ACS, ards, dissecion . Will rule out metabolic derangements) Admission/Observation Consideration of admission/observation: Escalation of care including admission/observation considered Lab Data [facility] Lab Attestation statement: I reviewed the patient's lab results. 08/17/24 12:25 08/17/24 13:45 Labs: Lab Results 08/17/24 08/17/24 08/17/24 Range/Units 11:28 12:25 13:43 WBC 11.1 H (4.8-10.8) X10*3/uL RBC 4.19 L (4.20-5.50) X10*6/uL Hgb 10.7 L (12.0-16.0) g/dl Hct 33.2 L (37.0-47.0) % MCV 79.2 L (80.0-98.0) fL MCH 25.5 L (27.0-33.0) pg MCHC 32.2 (31.0-35.0) g/dl RDW 14.5 (11.0-16.0) % Plt Count 309 D (160-400) X10*3/uL MPV 9.2 L (9.4-12.3) fL Immature Gran % (Auto) 0.5 H (0.0-0.4) % Neut % (Auto) 76.8 H (45-73) % Lymph % (Auto) 15.0 L (20-40) % [place] % (Auto) 6.0 (2-11) % Eos % (Auto) 1.2 (0-4) % Baso % (Auto) 0.5 (0-2) % Lymph # (Auto) 1.7 (1.2-4.9) X10*3/uL [place] # (Auto) 0.7 (0.1-1.2) X10*3/uL Eos # (Auto) 0.1 (0.0-0.4) X10*3/uL Baso # (Auto) 0.1 (0.0-0.2) X10*3/uL Abs Immat Gran (auto) 0.05 H (0.00-0.03) X10*3/uL Absolute Neuts (auto) 8.5 H (2.0-8.3) x10*3/uL Absolute Nucleated RBC 0.000 (0.0-0.012) X10*3/uL Nucleated RBC % (auto) 0.0 (0.0-0.2) /100WBC PT (10.9-12.4) SEC INR (0.9-1.1) D-Dimer High Sensitivty NG/ML Sodium (135-145) mmol/L Potassium (3.3-5.1) mmol/L Chloride (96-108) mmol/L Carbon Dioxide (22-29) mmol/L Anion Gap (12-20) BUN (9-16) mg/dL Creatinine (0.5-1.4) mg/dL Estim Creat Clear Calc Estimated GFR Random Glucose (60-115) mg/dL Lactic Acid (0.5-2.0) mmol/L Calcium (8.4-10.2) mg/dL Total Bilirubin (0.0-1.0) mg/dL AST (5-31) U/L ALT (0-31) U/L Alkaline Phosphatase (39-117) U/L Troponin I High Sens < 2.7 (<3.5-17.0) ng/L C-Reactive Protein (< or = 0.50) mg/dL Total Protein (6.5-8.0) g/dL Albumin (3.5-5.0) g/dL Urine Test NEGATIVE (NEGATIVE) Monoscreen (Negative) Influenza Type A (PCR) NEGATIVE (Negative) Influenza Type B (PCR) NEGATIVE (Negative) RSV RNA Qual (PCR) NEGATIVE (Negative) SARS-CoV-2 RNA (RT-PCR) NEGATIVE (Negative) S. pyogenes GrpA LONNIE Negative (Negative) 08/17/24 08/17/24 Range/Units 13:44 13:45 WBC (4.8-10.8) X10*3/uL RBC (4.20-5.50) X10*6/uL Hgb (12.0-16.0) g/dl Hct (37.0-47.0) % MCV (80.0-98.0) fL MCH (27.0-33.0) pg MCHC (31.0-35.0) g/dl RDW (11.0-16.0) % Plt Count (160-400) X10*3/uL MPV (9.4-12.3) fL Immature Gran % (Auto) (0.0-0.4) % Neut % (Auto) (45-73) % Lymph % (Auto) (20-40) % [place] % (Auto) (2-11) % Eos % (Auto) (0-4) % Baso % (Auto) (0-2) % Lymph # (Auto) (1.2-4.9) X10*3/uL [place] # (Auto) (0.1-1.2) X10*3/uL Eos # (Auto) (0.0-0.4) X10*3/uL Baso # (Auto) (0.0-0.2) X10*3/uL Abs Immat Gran (auto) (0.00-0.03) X10*3/uL Absolute Neuts (auto) (2.0-8.3) x10*3/uL Absolute Nucleated RBC (0.0-0.012) X10*3/uL Nucleated RBC % (auto) (0.0-0.2) /100WBC PT 12.2 (10.9-12.4) SEC INR 1.0 (0.9-1.1) D-Dimer High Sensitivty 225 NG/ML Sodium 135 (135-145) mmol/L Potassium 4.2 (3.3-5.1) mmol/L Chloride 100 (96-108) mmol/L Carbon Dioxide 29 (22-29) mmol/L Anion Gap 10 L (12-20) BUN 8 L (9-16) mg/dL Creatinine 0.82 (0.5-1.4) mg/dL Estim Creat Clear Calc 130.4 Estimated GFR > 60 Random Glucose 168 H (60-115) mg/dL Lactic Acid 1.3 (0.5-2.0) mmol/L Calcium 9.0 (8.4-10.2) mg/dL Total Bilirubin 0.5 (0.0-1.0) mg/dL AST 18 (5-31) U/L ALT 12 (0-31) U/L Alkaline Phosphatase 109 (39-117) U/L Troponin I High Sens (<3.5-17.0) ng/L C-Reactive Protein 7.01 H (< or = 0.50) mg/dL Total Protein 8.4 H (6.5-8.0) g/dL Albumin 3.9 (3.5-5.0) g/dL Urine Test (NEGATIVE) Monoscreen Negative (Negative) Influenza Type A (PCR) (Negative) Influenza Type B (PCR) (Negative) RSV RNA Qual (PCR) (Negative) SARS-CoV-2 RNA (RT-PCR) (Negative) S. pyogenes GrpA LONNIE (Negative) Independent Interpretation I performed an independent interpretation of an: EKG (Vent. Rate : 090 BPM Atrial Rate : 090 BPM P-R Int : 134 ms QRS Dur : 090 ms QT Int : 364 ms P-R-T Axes : 032 -15 022 degrees QTc Int : 445 ms Normal sinus rhythm Normal ECG When compared with ECG of 03-JUL-2024 10:07, No significant change was found) and Plain X-Ray (FINDINGS: No significant abnormality is noted involving the heart, lungs, mediastinum, bony thorax or soft tissues. XR/XR chest 2V IMPRESSION: Unremarkable examination. ) Radiology Impression Discussion of test interpretation with radiology: I have reviewed the radiologist's reading. External Record Review External record reviewed: Inpatient record, Office record, Outpatient record, Prior outpatient labs, Prior outpatient radiology, Primary care record and Outside ED record Prescription Management I considered prescription management with: Other Chronic Conditions Patient?s care impacted by: Other (Opiate use disorder, hypertension, sepsis, PCOS, anxiety, depression, diabetes) Critical Care Time Critical Care Time Critical Care Time: Yes Total Critical Care Time: 35 Attestation: I attest to this time spent taking care of the patient, obtaining history, physical, reviewing labs, imaging, treatment of patients condition +/- specialist/hospitalist consult Discharge Plan Discharge Clinical Impression: Chest pain, Viral illness, Oral thrush, Medication refill Patient Disposition: Home, Self-Care Instructions: Chest Pain (ED), Viral Syndrome (ED) Additional Instructions: Take your medications as prescribed. If you were prescribed antibiotics today, it is important that you take your medication to their entirety, do not skip any doses, do not finish them early. Follow-up with your primary care provider this week. Return to the emergency department with new or worsening symptoms. Such as fevers, chills, chest pain, shortness of breath, nausea, vomiting, dizziness, headache, vision changes, lethargy In case of emergency call 911 ' Follow up with wound care and infectious disease for your right toe. XR/XR chest 2V IMPRESSION: Unremarkable examination. Electronically signed by: Maurisio Lee MD 08/17/2024 12:45 PM [facility] Prescriptions: New nystatin 100,000 unit/mL suspension 1 ml PO DAILY Qty: 60 0RF Rx Instructions: swish and swallow (DME) FreeStyle Lite Strips Strip See Rx Instructions .Route Qty: 50 0RF Rx Instructions: As directed trazodone 50 mg tablet 50 mg PO DAILY Qty: 14 0RF duloxetine 20 mg capsule,delayed release(DR/EC) 20 mg PO BID 14 Days Qty: 28 0RF No Action methadone 10 mg/mL Concentrate 120 mg PO DAILY Rx Instructions: [facility] -[phone], LAST DOSE ON 07/01/24 @1129 PER [facility] insulin glargine [Lantus U-100 Insulin] 100 unit/mL Solution 25 unit subcut BEDTIME Qty: 30 0RF lisinopril 20 mg Tablet 20 mg PO DAILY Qty: 90 0RF Protocol: Hold for SBP< HOLD for SBP < : 90 insulin lispro [Admelog U-100 Insulin lispro] 100 unit/mL Solution See Protocol subcut QIDACHS Qty: 30 0RF Protocol: Insulin Correction Scale Less than or equal to 110 ---- Give (units): 0 111 to 150 Give (units): 0 151 to 200 Give (units): 4 201 to 250 Give (units): 6 251 to 300 Give (units): 8 301 to 350 Give (units): 12 Greater than 350 Give (units): 14 Call MD if Blood Glucose > : 350 Rx Instructions: BG <111 0 units, 111-150 - 0 units, 151-200 2 units, 201-250 4 units, 251-300 6 units, 301-350 8 units, >350 10 units amlodipine 5 mg tablet 5 mg PO DAILY Qty: 90 0RF duloxetine [Cymbalta] 20 mg capsule,delayed release(DR/EC) 20 mg PO BID trazodone 50 mg tablet 50 mg PO DAILY doxycycline hyclate 100 mg capsule 100 mg PO BID 30 Days Qty: 60 0RF Referrals: [facility] [Provider Group] - 2 days [facility] [Provider Group] - 1 day Huan Bowman MD [Primary Care Provider] - 2 days Stand Alone Forms: Work/School Release Print Language: Telugu
[2024-08-17 12:02] LABS: IDNOW Serial# 58CA691E; Strep A Nucleic Acid Negative (Negative)
--- NOTE | 2024-08-17 12:16 | PC.NURSE ---
Pt comes to ED today for c/o chest pain starting this AM /. A&Ox3 Skin is warm and dry Breaths and speech are even and unlabored. Facial symmetry noted. Pt reports recent PICC removal to RUE after completing care home abx therapy for osteomylitis to R great toe. Pt reports she is on methadone 120mg but was only able to take 100mg this AM--that is what she had on hand. Pt states she is diabetic but has not been taking any insulin as she was not provided with a Rx for insulin syringes. Pt is a difficulty stick--unable to place IV access and obtain all ordered labs. Assistance requested with venipuncture. Will send labs as obtained. NAD noted at this time.
[2024-08-17 12:26] LABS: Influenza A PCR NEGATIVE (Negative); Influenza B PCR NEGATIVE (Negative); Resp Syncy Virus RNA Qual PCR NEGATIVE (Negative); SARS COV2 PCR INHOUSE NEGATIVE (Negative)
[2024-08-17 12:32] LABS: MANUAL DIFF FLAG NO
[2024-08-17 12:34] LABS: Basophils Absolute Auto 0.1 X10*3/uL (0.0-0.2); Basophils Percent Auto 0.5 % (0-2); Eosinophils Absolute Auto 0.1 X10*3/uL (0.0-0.4); Eosinophils Percent Auto 1.2 % (0-4); Hematocrit 33.2 % (37.0-47.0); Hemoglobin 10.7 g/dl (12.0-16.0); Imm Gran Abs Auto 0.05 X10*3/uL (0.00-0.03); Imm Gran Pct Auto 0.5 % (0.0-0.4); Lymphocytes Absolute Auto 1.7 X10*3/uL (1.2-4.9); Mean Corpuscular HGB Conc 32.2 g/dl (31.0-35.0); Mean Corpuscular Hemoglobin 25.5 pg (27.0-33.0); Mean Corpuscular Volume 79.2 fL (80.0-98.0); Mean Platelet Volume 9.2 fL (9.4-12.3); Monocytes Absolute Auto 0.7 X10*3/uL (0.1-1.2); Neutrophils Absolute Auto 8.5 x10*3/uL (2.0-8.3); Neutrophils Percent Auto 76.8 % (45-73); Platelet Count 309 X10*3/uL (160-400); Red Blood Count 4.19 X10*6/uL (4.20-5.50); Red Cell Distribution Width 14.5 % (11.0-16.0); White Blood Count 11.1 X10*3/uL (4.8-10.8)
[2024-08-17 12:55] LABS: Troponin-I High Sensitivity < 2.7 ng/L (<3.5-17.0)
--- NOTE | 2024-08-17 13:44 | PC.NURSE ---
U/S guided IV placement/blood draw attempted by floor RN with no success. ED provider aware. Plan to attempt attempt a straight stick for final blood draw needed.
[2024-08-17 13:59] LABS: UPreg QC Valid YES; Urine Pregnancy NEGATIVE (NEGATIVE)
[2024-08-17 14:02] LABS: Prothrombin Time 12.2 SEC (10.9-12.4)
[2024-08-17 14:04] LABS: D Dimer High Sensitivity 225 NG/ML
[2024-08-17 14:13] LABS: Lactic Acid 1.3 mmol/L (0.5-2.0)
[2024-08-17 14:16] LABS: Alanine Aminotransferase 12 U/L (0-31); Albumin Level 3.9 g/dL (3.5-5.0); Alkaline Phosphatase 109 U/L (39-117); Anion Gap 10 (12-20); Aspartate Amino Transferase 18 U/L (5-31); Bilirubin Total 0.5 mg/dL (0.0-1.0); Blood Urea Nitrogen 8 mg/dL (9-16); C Reactive Protein 7.01 mg/dL (< or = 0.50); Carbon Dioxide 29 mmol/L (22-29); Chloride 100 mmol/L (96-108); Creatinine Clr Calc Pharmacy 130.4; Estimated Glomerular Filt Rate > 60; Glucose Random 168 mg/dL (60-115); Potassium 4.2 mmol/L (3.3-5.1); Sodium 135 mmol/L (135-145); Total Protein 8.4 g/dL (6.5-8.0)
[2024-08-17 14:17] LABS: Monotest Negative (Negative)
[2024-08-17 14:35] LABS: Troponin-I High Sensitivity < 2.7 ng/L (<3.5-17.0)
[2024-08-17 14:39] LABS: Erythrocyte Sedimentation Rate 78 MM/HR (0-20)
[2024-08-17 14:56] VITALS: BP 128/79; PULSE 80; RESP 16; TEMP 36.6; O2SAT 100
[2024-08-17 15:26] VITALS: BP 128/79; PULSE 80; RESP 16; TEMP 36.6; O2SAT 100
== END 2024-08-17 15:27 | disposition home or self-care (01) ==
PROVIDERS: Nurse Practitioner Family; Physician Assistant; Emergency Provider Emergency Medicine; PCP Internal Medicine
DX: B34.9 Viral infection, unspecified (principal); B37.0 Candidal stomatitis; R07.89 Other chest pain; E11.9 Type 2 diabetes mellitus without complications; I10 Essential (primary) hypertension; J02.9 Acute pharyngitis, unspecified; R05.9 Cough, unspecified; Z79.4 Long term (current) use of insulin; Z79.899 Other long term (current) drug therapy; Z76.0 Encounter for issue of repeat prescription; Z03.818 Encounter for observation for suspected exposure to other biological agents ruled out
CPT/HCPCS: 0241U; 36415; 71046; 80053; 81025; 83605; 84484; 85025; 85379; 85610; 85652; 86140; 86308; 87040; 87651; 93005; 99284

== ENCOUNTER → 2024-08-17 10:54 | Outpatient (BNV) | payer OTHER, SELFPAY | PROVIDERS: Emergency Provider Emergency Medicine; PCP Internal Medicine; Visit Provider Internal Medicine | DX: R07.9 Chest pain, unspecified (principal) | CPT/HCPCS: 93010 ==

== ENCOUNTER 2024-09-07 15:36 | Emergency (ER) | payer OTHER, SELFPAY ==
[2024-09-07 16:12] VITALS: BMI 41.0
--- NOTE | 2024-09-07 16:20 | ED.GENADULT ---
HPI - General Adult General Chief complaint: General Medical Stated complaint: Rx Refill Time Seen by Provider: 09/07/24 17:25 Source: patient, RN notes reviewed and old records reviewed Mode of arrival: ambulatory History of Present Illness ED Provider: Thania Oquendo PA-C HPI narrative: 39-year-old female with a past medical history of diabetes, IVDA, gastroparesis, HTN, obesity, PCOS, presenting to ED requesting medication refill of insulin test strips, Lantus, trazodone, and duloxetine. Patient states she was admitted to our hospital in July and discharged to a rehab, however does not have PCP appointment until March. States ran out of her medications today. Did receive 2 week refill on 08/17/2024. Denies any other complaints at present. Related Data Home Medications ?Medication ?Instructions ?Recorded ?Confirmed methadone 10 mg/mL oral concentrate 120 mg PO DAILY 07/03/24 07/03/24 duloxetine 20 mg capsule,delayed 20 mg PO BID 08/06/24 release (Cymbalta) trazodone 50 mg tablet 50 mg PO DAILY 08/06/24 Previous Rx's ?Medication ?Instructions ?Recorded amlodipine 5 mg tablet 5 mg PO DAILY #90 tabs 07/08/24 insulin glargine 100 unit/mL 25 unit (0.25 mL) subcut BEDTIME 07/08/24 subcutaneous solution (Lantus #30 mL U-100 Insulin) insulin lispro 100 unit/mL See Protocol subcut QIDACHS #30 mL 07/08/24 subcutaneous solution (Admelog U-100 Insulin lispro) lisinopril 20 mg tablet 20 mg PO DAILY #90 tabs 07/08/24 doxycycline hyclate 100 mg capsule 100 mg PO BID 30 days #60 caps 08/06/24 blood sugar diagnostic (FreeStyle #50 ea 08/17/24 Lite Strips) duloxetine 20 mg capsule,delayed 20 mg PO BID 2 weeks #28 caps 08/17/24 release nystatin 100,000 unit/mL oral 1 ml PO DAILY #60 mL 08/17/24 suspension trazodone 50 mg tablet 50 mg PO DAILY #14 tabs 08/17/24 blood sugar diagnostic (FreeStyle #100 ea 09/07/24 Lite Strips) duloxetine 20 mg capsule,delayed 20 mg PO BID 30 days #60 caps 09/07/24 release sprinkle insulin glargine 100 unit/mL 25 unit (0.25 mL) subcut QPM #10 mL 09/07/24 subcutaneous solution trazodone 50 mg tablet 50 mg PO DAILY 30 days #30 tabs 09/07/24 Allergies Allergy/AdvReac Type Severity Reaction Status Date / Time No Known Allergies Allergy Verified 09/07/24 16:28 Review of Systems Review of Systems: Yes all other systems are reviewed and are negative Constitutional: Constitutional: Reports as per [facility] Past Medical History Attestation statement: The following information was validated with the patient. Source: old records reviewed Medical History Opioid use disorder Hypertension Sepsis Depression PCOS (polycystic ovarian syndrome) Rash Polysubstance (excluding opioids) dependence, daily use Methadone maintenance therapy patient Anxiety and depression Diabetes Social History Social History Household Members: Children Household Members Other:: daughter Housing: Apartment Do you presently have visiting nurse or other home services: No Alcohol intake: current Alcohol intake frequency: does not drink Patient Tobacco Use Status: Never used Tobacco Tobacco use type: Cigarette Cigarette Packs Per Day: 3 Cigarettes Per Day: 60.0 Years Smoked: 2 e-Cigarette/Vaping Use: Never Used Substance Use Type: Marijuana Advance Directives: Yes Advance Directives on File: Yes Advance Directives Date on File: 01/11/22 Do you have a plan to hurt others: No Plan service: No Current occupational status: unemployed Physical Exam ED Vital Signs: Vital Signs - 24 hr 09/07/24 19:40 Temperature 0 F L Pulse Rate 0 L Respiratory Rate 0 L Blood Pressure 0/0 L Pulse Oximetry 0 L BMI result Body Mass Index 41.0 Const General: cooperative, healthy appearing and no acute distress Orientation/consciousness: patient oriented x3 Limitations: no limitations HENMT Head: Yes normal to inspection and Yes atraumatic Ears: hearing grossly normal bilaterally General nose exam: Normal external nose present Face and sinus: Yes normal facial exam Eyes General: appearance normal, both eyes and all related structures EOM: EOMs intact bilaterally Neck Neck: Yes normal visual inspection and Yes no meningeal signs Resp Effort & Inspection: normal respiratory effort and no respiratory distress Cardio Rate: regular rate Neuro General: patient oriented x3, tone normal and no meningeal signs Cranial nerves: Yes CN's II-XII intact bilaterally Gait exam (Neuro): Normal gait present Extrem General: Yes normal to inspection Course Course Course Narrative: RME: 39-year-old female presents to ED for medication refill. Patient states no physical complaints. She able to see her primary care provider soon Medical Decision Making Medical Decision Making MDM Narrative: 39-year-old female with a past medical history of diabetes, IVDA, gastroparesis, HTN, obesity, PCOS, presenting to ED requesting medication refill of insulin test strips, Lantus, trazodone, and duloxetine. On exam vital signs stable, NAD, nontoxic appearing, acting appropriate, here for medication refill. Low suspicion for metabolic or infectious etiologies at this time We will give 1 month supply of medications. Recommended PCP follow-up/establishment Please refer to course for remaining clinical decision making, interpretation of labs/imaging results, and discussions with consultants and/or family members. Results discussed with patient including worrisome signs and symptoms and strict return precautions, and when to return to the emergency department. They verbalized understanding and feel safe for discharge at this time. Differential Diagnosis Differential Diagnoses: The differential diagnosis associated with the presentation includes As above External Record Review External record reviewed: Inpatient record, Office record, Outpatient record, Prior outpatient labs, Prior outpatient radiology, Primary care record and Outside ED record Tests considered The following testing was considered but not selected: As above Prescription Management I considered prescription management with: Other Chronic Conditions Patient?s care impacted by: Diabetes and Other Social Determinants Patient?s care significantly limited by Social Determinants of Health including: Inadequate housing, Low income, Alcoholism and drug addiction in family, Problems related to primary support group, Unemployment, Problems related to employment and Other Social Determinant of Health Discharge Plan Discharge Clinical Impression: Medication refill Patient Disposition: Home, Self-Care Instructions: Medicine Refill (ED) Additional Instructions: Please continue taking your medications as prescribed. Do not miss any doses Establish care with a primary care doctor Prescriptions: New (DME) FreeStyle Lite Strips Strip See Rx Instructions .Route Qty: 100 0RF Rx Instructions: As directed insulin glargine 100 unit/mL solution 25 unit subcut QPM Qty: 10 0RF duloxetine 20 mg capsule, delayed rel sprinkle 20 mg PO BID 30 Days Qty: 60 0RF trazodone 50 mg tablet 50 mg PO DAILY 30 Days Qty: 30 0RF No Action methadone 10 mg/mL Concentrate 120 mg PO DAILY Rx Instructions: [facility] -[phone], LAST DOSE ON 07/01/24 @1129 PER [facility] insulin glargine [Lantus U-100 Insulin] 100 unit/mL Solution 25 unit subcut BEDTIME Qty: 30 0RF lisinopril 20 mg Tablet 20 mg PO DAILY Qty: 90 0RF Protocol: Hold for SBP< HOLD for SBP < : 90 insulin lispro [Admelog U-100 Insulin lispro] 100 unit/mL Solution See Protocol subcut QIDACHS Qty: 30 0RF Protocol: Insulin Correction Scale Less than or equal to 110 ---- Give (units): 0 111 to 150 Give (units): 0 151 to 200 Give (units): 4 201 to 250 Give (units): 6 251 to 300 Give (units): 8 301 to 350 Give (units): 12 Greater than 350 Give (units): 14 Call MD if Blood Glucose > : 350 Rx Instructions: BG <111 0 units, 111-150 - 0 units, 151-200 2 units, 201-250 4 units, 251-300 6 units, 301-350 8 units, >350 10 units amlodipine 5 mg tablet 5 mg PO DAILY Qty: 90 0RF nystatin 100,000 unit/mL suspension 1 ml PO DAILY Qty: 60 0RF Rx Instructions: swish and swallow (DME) FreeStyle Lite Strips Strip See Rx Instructions .Route Qty: 50 0RF Rx Instructions: As directed trazodone 50 mg tablet 50 mg PO DAILY Qty: 14 0RF duloxetine 20 mg capsule,delayed release(DR/EC) 20 mg PO BID 14 Days Qty: 28 0RF duloxetine [Cymbalta] 20 mg capsule,delayed release(DR/EC) 20 mg PO BID trazodone 50 mg tablet 50 mg PO DAILY doxycycline hyclate 100 mg capsule 100 mg PO BID 30 Days Qty: 60 0RF Referrals: Huan Bowman MD [Primary Care Provider] - Interventions: ED Discharge Assessment Last Done: 09/07/24 19:40 Discharge Date/Time: 09/07/24 19:41 Print Language: Macedonian
[2024-09-07 19:40] VITALS: BP 0/0; PULSE 0; RESP 0; TEMP -17.7; TEMP 0; O2SAT 0
== END 2024-09-07 19:41 | disposition home or self-care (01) ==
PROVIDERS: Emergency Provider Emergency Medicine Emergency Medical Services; PCP Internal Medicine
DX: E11.9 Type 2 diabetes mellitus without complications (principal); Z76.0 Encounter for issue of repeat prescription; Z79.4 Long term (current) use of insulin; Z79.899 Other long term (current) drug therapy
CPT/HCPCS: 99282

== ENCOUNTER 2024-09-10 13:18 | Outpatient (AMB) | payer OTHER, SELFPAY ==
--- NOTE | 2024-09-10 13:26 | A.OFFVIS_ITS ---
Vital Signs 3 09/10/24 13:32 Height 5 ft 8 in Weight 284 lb BMI 43.2 Pulse 82 Pulse Source Pulse Oximeter Temp 98.0 F Temp Source Oral Pulse Oximetry (%) 97 Oxygen Delivery Method Room Air Intake Visit Reasons: f/u 1 mth Allergies No Known Allergies Allergy (Verified 09/10/24 13:32) HPI HPI f/u 1 mth: Details: She feels area healing well. She has no complaints [facility] Medical History Opioid use disorder Hypertension Sepsis Depression PCOS (polycystic ovarian syndrome) Rash Polysubstance (excluding opioids) dependence, daily use Methadone maintenance therapy patient Anxiety and depression Diabetes Social History Household Members: Children Household Members Other:: daughter Housing: Apartment Do you presently have visiting nurse or other home services: No Alcohol intake: current Alcohol intake frequency: does not drink Patient Tobacco Use Status: Never used Tobacco Tobacco use type: Cigarette Cigarette Packs Per Day: 3 Cigarettes Per Day: 60.0 Years Smoked: 2 e-Cigarette/Vaping Use: Never Used Substance Use Type: Marijuana Advance Directives Date on File: 01/11/22 service: No Current occupational status: unemployed Review of Systems Const All systems reviewed & are unremarkable except as noted in HPI and below Physical Exam Vital Signs: Last Vital Signs Temp 98.0 F 09/10/24 13:32 Pulse 82 09/10/24 13:32 Pulse Ox 97 09/10/24 13:32 Oxygen Delivery Method Room Air 09/10/24 13:32 BMI result Body Mass Index 43.2 Const Other: General: cooperative Orientation/consciousness: patient oriented x3 HEENT Head: Yes normal to inspection Mouth: Normal oral and palatal mucosa present Eyes General: appearance normal, both eyes and all related structures Pupils: Equal, round and reactive pupils present Resp Effort & Inspection: normal respiratory effort Cardio Rate: regular rate Rhythm: regular rhythm GI Palpation (GI): Soft to palpation and nontender General: Yes no CVA tenderness Back/Spine/Pelvis Back: no CVA tenderness Skin General skin exam: no rashes or lesions noted Neuro General: patient oriented x3 Cranial nerves: Yes CN's II-XII intact bilaterally and Yes Equal, round and reactive pupils present Extrem Other: healing area General: Yes normal to inspection Psych Appearance: grossly normal Assessment & Plan Assessment & Plan (1) Osteomyelitis: Comment: She is doing well. Code(s): M86.9 - Osteomyelitis, unspecified Category: Medical Qualifiers: Laterality: right Osteomyelitis location: foot Osteomyelitis type: o ther acute Qualified Code(s): M86.171 - Other acute osteomyelitis, right ankle and foot Plan: Area is improving. Plan Finish po Doxycycline. Return if needed. Coding Level of Care Code Est Pt Level 3 (57486) Diagnoses Other acute osteomyelitis of right foot M86.171 Laterality: right Osteomyelitis location: foot Osteomyelitis type: other acute
[2024-09-10 13:32] VITALS: PULSE 82; TEMP 36.7; O2SAT 97; BMI 43.2
== END 2024-09-10 15:46 | disposition home or self-care (01) ==
PROVIDERS: Visit Provider Internal Medicine
DX: M86.171 Other acute osteomyelitis, right ankle and foot (principal)
CPT/HCPCS: 99213

== ENCOUNTER → 2024-09-10 13:18 | Outpatient (BNVA) | payer OTHER, SELFPAY | PROVIDERS: Visit Provider Internal Medicine | DX: M86.171 Other acute osteomyelitis, right ankle and foot (principal) | CPT/HCPCS: 99212 ==

== ENCOUNTER 2024-09-11 12:44 | Outpatient (AMB) | payer OTHER, SELFPAY ==
--- NOTE | 2024-09-11 11:38 | A.OFFVIS_ITS ---
Vital Signs 09/11/24 12:49 Height 5 ft 8 in Weight 279 lb 15.793 oz BMI 42.6 Blood Pressure Location Rt brachial Position Sitting Pulse Source Pulse Oximeter Intake Visit Reasons: DM Intake Note: Patient presents today to re-establish treatment for Type 2 Diabetes Mellitus: Last Diabetic eye exam was on: DUE Last Podiatry exam was on: Patient does not see a [employer] Most recent HbA1c: 12.3%, 07/09/2024 Random Glucose- 284 mg/dL, Today Skiver Heel Tap Required: No Accompanied by: Self / Same As Patient Allergies No Known Allergies Allergy (Verified 09/11/24 12:58) Medication List - Last Reconciled 09/12/24 by Kaylynn Abrams NP amlodipine 5 mg PO DAILY blood sugar diagnostic (FreeStyle Lite Strips) As directed blood-glucose sensor (FreeStyle Franklin 3 Plus Sensor device) As directed duloxetine 20 mg PO BID 30 days duloxetine (Cymbalta) 30 mg PO DAILY 90 days insulin glargine (Lantus U-100 Insulin) 25 units (0.25 mL) subcut BEDTIME insulin glargine 25 units (0.25 mL) subcut QPM insulin lispro (Admelog U-100 Insulin lispro) See Protocol units subcut QIDACHS insulin syringe-needle U-100 (BD Insulin Syringe Ultra-Fine) daily lancets (FreeStyle Lancets) 3 times per day lisinopril 20 mg See Protocol PO DAILY methadone 120 mg PO DAILY nystatin 1 mL PO DAILY trazodone 50 mg PO DAILY 30 days HPI Comments Details: 39 YO female who is seen in consultation for T2DM at the request of PCP. The patient has a history of opioid use disorder on methadone, abscess of the buttocks requiring hospitalization 2023, osteomyelitis and cellulitis of the right foot requiring hospitalization in July 2024 status post 6 weeks antibiotic therapy and recently seen by Rhianna 09/10/2024 with no additional follow-up needed unless recurrence. Foot ulcer healing well. She has additional prior history of uncontrolled DM,gastroparesis, obesity, PCOS, opioid use disorder, history of nausea. During her hospital stay she was seen by vascular and circulation to the right leg was widely patent without intervention needed. Her sugars had been in better control but she ran out of test strips in his not been testing her sugar or taking insulin. She denies nausea vomiting fatigue or thirst. She has not had a primary care provider in quite some time and has been getting were knows of her medication through the ER. She has an appointment in March. She is requesting a renewal today of Cymbalta which she takes for depression which has been stable. She does see a counselor at the addiction clinic. Most recent A1C 07/09/24 12.3% Initially diagnosed with T2DM at age 25 y.o. Was initially started on treatment with diet and was able to bring her numbers down with 50 pound weight loss. Current regimen: Lantus 25 units Lispro sliding scale before meals 151 - 200 4 units 201 - 250 6 units 251 - 300 8 units 301 - 350 12 units Over 350 14 units Checks sugars 4 times per day when she has strips Average sugar: 200 but no recent testing over the past few weeks Reports low sugars none recent. Treats lows with glucose Most recent A1C 12.3 % on 07/09/2024, down from prior 13.2 on November 2023. Family history of T2DM in []. Has eyes checked yearly, last eye exam scheduled for 09/12/24 no retinopahy Has neuropathy some shooting pain better on cymbalta does not see podiatry No known nephropathy, on andrew-i no recent microalbumin 08/17/2024 eGFR>60 Not on statin no lipid profile in EHR [Denies] CAD. Works for [employer] 4-6 hours per day Diet: break yogurt or muffin top lunch leftovers dinner chick sand salad some pizza at night eats: poptarts cheese sticks fruit No recent diabetes education. [facility] Medical History (Updated 09/11/24 @ 12:59 by PEGGY Muniz) History of open wound of lower extremity Opioid use disorder Hypertension Sepsis Depression PCOS (polycystic ovarian syndrome) Rash Polysubstance (excluding opioids) dependence, daily use Methadone maintenance therapy patient Anxiety and depression Diabetes Surgical History (Updated 09/11/24 @ 13:00 by PEGGY Muniz) Hx of removal of cyst Family History (Updated 09/11/24 @ 13:02 by PEGGY Muniz) Father No problems noted. Mother Hx of diabetes mellitus Sister Heart disease Social History Household Members: Children Household Members Other:: daughter Housing: Apartment Do you presently have visiting nurse or other home services: No Alcohol intake: current Alcohol intake frequency: does not drink Patient Tobacco Use Status: Never used Tobacco Tobacco use type: Cigarette Cigarette Packs Per Day: 3 Cigarettes Per Day: 60.0 Years Smoked: 2 e-Cigarette/Vaping Use: Never Used Substance Use Type: Marijuana Advance Directives Date on File: 01/11/22 service: No Current occupational status: unemployed Physical Exam Vital Signs: BMI result Body Mass Index 42.6 Absence of Cushingoid features. Absence of acromegalic features. Neck exam reveals nl size thyroid about 15 gms. No thyroid nodules palpable. No carotid bruits present. Lungs CTA. Heart S1 S2, Reg R/R. No M/R/ G. Skin exam reveals absence of vitiligo or acanthosis nigricans. Abdominal exam reveals Soft NT/ND with NA BS. No organomegaly present. Const Other: Absence of Cushingoid features. Absence of acromegalic features. Neck exam reveals nl size thyroid about 15 gms. No thyroid nodules palpable. No carotid bruits present. Lungs CTA. Heart S1 S2, Reg R/R. No M/R G. Skin exam reveals absence of vitiligo or acanthosis nigricans. No edema Foot exam deferred today, seen earlier this week by I and D with improving ulcer Neck Other: . Extrem Other: Visual exam of foot performed. No ulcerations or open lesions. No onchomycosis, no callouses.Pulses 2 + distally Sensation intact to monofilament exam. Vibratory sensation sensed is intact with 128 Hz tuning fork Results Reviewed Results Reviewed: Laboratory Last Values Glucose (Clinic) 284 mg/dL (60-115) H 09/11/24 12:57 Assessment & Plan Assessment & Plan (1) Diabetes: Code(s): E11.9 - Type 2 diabetes mellitus without complications Category: Medical Plan: 39-year-old type 2 diabetic with recently resolved osteomyelitis with a longstanding history of poor control. Obtain baseline labs, chata D and insulin antibody As I have no numbers to react to today we will keep her existing sliding scale with the exception of start the scale at 120. We will order a freestyle Franklin 3. Patient appears motivated to get her numbers under control. Foot exam next visit in 4 weeks. The patient had an opportunity to ask questions regarding treatment plan. The patient expressed understanding and agreement with the above treatment plan. The patient is aware they should contact our office by phone for worsening glucose readings or for any low blood sugars which may warrant a change in diabetes medication. Compliance is encouraged with medications and any followup testing/consults which may have been ordered. Orders: Orders Basic Metabolic Panel Fasting 09/18/24 E11.9 - Type 2 diabetes mellitus without complications Microalbumin, Random (w Creat) 09/18/24 E11.9 - Type 2 diabetes mellitus without complications Creatinine Urine 09/18/24 E11.9 - Type 2 diabetes mellitus without complications C Peptide 09/18/24 E11.9 - Type 2 diabetes mellitus without complications Lipid Panel 09/18/24 E11.9 - Type 2 diabetes mellitus without complications Glutamic acid decarboxylase Ab 09/18/24 E11.9 - Type 2 diabetes mellitus without complications Islet Cell Antibody Scrn/Titer 09/18/24 E11.9 - Type 2 diabetes mellitus without complications Referrals [employer] Nutrition Referral E11.9 - Type 2 diabetes mellitus without complications Diabetes Education Referral E11.9 - Type 2 diabetes mellitus without complications Medications: New insulin syringe-needle U-100 (BD Insulin Syringe Ultra-Fine) daily 100 ea 1RF duloxetine (Cymbalta) 30 mg PO DAILY 90 caps 0RF 90 days lancets (FreeStyle Lancets) 3 times per day 100 ea 1RF blood-glucose sensor (FreeStyle Franklin 3 Plus Sensor device) As directed 6 ea 3RF Changed From blood sugar diagnostic As directed 100 ea 0RF E11.9 - Type 2 diabetes mellitus without complications To blood sugar diagnostic (FreeStyle Lite Strips) As directed 100 ea 0RF E11.9 - Type 2 diabetes mellitus without complications Discontinued trazodone Discontinued Reason: Duplicate 50 mg PO DAILY 14 tabs 0RF blood sugar diagnostic Discontinued Reason: Duplicate As directed 50 ea 0RF E11.9 - Type 2 diabetes mellitus without complications duloxetine Discontinued Reason: Duplicate 20 mg PO BID 2 weeks 28 caps 0RF duloxetine Discontinued Reason: No Longer Medically Relevant 20 mg PO BID 30 days 60 caps 0RF doxycycline hyclate Discontinued Reason: No Longer Medically Relevant 100 mg PO BID 30 days 60 caps 0RF Patient Instructions: The patient was counseled to always carry a source of sugar and on the rule of 15's: Take 3 glucose tablets and repeat again in 15 minutes if blood sugar is not in normal range. Continue to repeat every 15 minutes until blood sugar is normal. The patient was counseled to achieve a target A1C of 7% (154 avg). Fasting blood sugars should be 90-130 in the morning and less than 180 two hours after meals. Reviewed the relationship between poor diabetic control and the development of complications. Check your feet daily looking for any signs of infection, ulceration and seek medical attention if this occurs. Break in shoes gradually and do not wear open-toed shoes or walk barefooted. Coding Level of Care Code Tele New Pt Level 5 (45816) Complex EM visit Add On G2211 Diagnoses Diabetes E11.9 Time Spent (min) 45 Comment Time spent reviewing labs/provider notes, face to face, chart doc
[2024-09-11 12:49] VITALS: BMI 42.6
[2024-09-11 13:07] LABS: Glucose, Whole Blood 284 mg/dL (60-115)
== END 2024-09-11 13:28 | disposition home or self-care (01) ==
PROVIDERS: Visit Provider Nurse Practitioner Adult Health
DX: E11.9 Type 2 diabetes mellitus without complications (principal)
CPT/HCPCS: 99204; G2211

== ENCOUNTER → 2024-09-11 12:44 | Outpatient (BNVA) | payer OTHER, SELFPAY | PROVIDERS: Visit Provider Nurse Practitioner Adult Health | DX: E11.9 Type 2 diabetes mellitus without complications (principal) | CPT/HCPCS: 82947; 99202 ==

== ENCOUNTER 2024-09-18 09:20 | Outpatient (REF) | payer OTHER, SELFPAY ==
[2024-09-18 10:58] LABS: Creatinine Urine 139.07 mg/dL; Microalbum/Creatinine Ratio Ur 10.7 ug/mg cr (<30)
== END 2024-09-18 09:21 | disposition home or self-care (01) ==
LOC: HO.LAB 09:20
PROVIDERS: Visit Provider Nurse Practitioner Adult Health
DX: E11.9 Type 2 diabetes mellitus without complications (principal)
CPT/HCPCS: 82043; 82570

== ENCOUNTER 2024-09-25 11:50 | Outpatient (RCR) | payer OTHER, SELFPAY | END 2024-10-27 13:47 | disposition home or self-care (01) | LOC: HO.WCC 11:50 | PROVIDERS: PCP Internal Medicine; Visit Provider Surgery | DX: E11.621 Type 2 diabetes mellitus with foot ulcer (principal); L97.512 Non-pressure chronic ulcer of other part of right foot with fat layer exposed; E11.40 Type 2 diabetes mellitus with diabetic neuropathy, unspecified; I10 Essential (primary) hypertension; Z79.4 Long term (current) use of insulin; Z86.718 Personal history of other venous thrombosis and embolism; Z87.891 Personal history of nicotine dependence | CPT/HCPCS: 11042; 99212; 99213 ==

== ENCOUNTER 2024-10-02 14:14 | Outpatient (AMB) | payer OTHER, SELFPAY ==
--- NOTE | 2024-10-02 14:33 | MHC.AMDMED ---
Intake Intake Visit Reasons: CGM Internal Medicine Doctor Required: No Accompanied by: Self / Same As Patient Allergies No Known Allergies Allergy (Verified 09/11/24 12:58) [facility] Comprehensive Diabetes Asmnt Most Recent Diabetes Results: Microalb/Creat Ratio 10.7 ug/mg cr (<30) 09/18/24 Creatinine 0.82 mg/dL (0.5-1.4) 08/17/24 Blood Urea Nitrogen 8 mg/dL (9-16) L 08/17/24 Sodium 135 mmol/L (135-145) 08/17/24 Potassium 4.2 mmol/L (3.3-5.1) 08/17/24 Chloride 100 mmol/L (96-108) 08/17/24 Carbon Dioxide 29 mmol/L (22-29) 08/17/24 Calcium 9.0 mg/dL (8.4-10.2) 08/17/24 AST 18 U/L (5-31) 08/17/24 ALT 12 U/L (0-31) 08/17/24 Total Protein 8.4 g/dL (6.5-8.0) H 08/17/24 Albumin 3.9 g/dL (3.5-5.0) 08/17/24 PFS Medical History (Updated 09/11/24 @ 12:59 by PEGGY Muniz) History of open wound of lower extremity Opioid use disorder Hypertension Sepsis Depression PCOS (polycystic ovarian syndrome) Rash Polysubstance (excluding opioids) dependence, daily use Methadone maintenance therapy patient Anxiety and depression Diabetes Surgical History (Updated 09/11/24 @ 13:00 by PEGGY Muniz) Hx of removal of cyst Family History (Updated 09/11/24 @ 13:02 by PEGGY Muniz) Father No problems noted. Mother Hx of diabetes mellitus Sister Heart disease Social History Household Members: Children Household Members Other:: daughter Housing: Apartment Do you presently have visiting nurse or other home services: No Alcohol intake: current Alcohol intake frequency: does not drink Patient Tobacco Use Status: Never used Tobacco Tobacco use type: Cigarette Cigarette Packs Per Day: 3 Cigarettes Per Day: 60.0 Years Smoked: 2 e-Cigarette/Vaping Use: Never Used Substance Use Type: Marijuana Advance Directives Date on File: 01/11/22 service: No Current occupational status: unemployed Assessment & Plan Assessment & Plan (1) Diabetes: Code(s): E11.9 - Type 2 diabetes mellitus without complications Plan: Patient at visit to set up an insert Franklin 3 with nasir Instructed patient sensors water proof you can shower, or swim do not submerge sensor in water for over 30 minutes Is sensor falls off cannot put back in you need to replace sensor, customer service number given to patient for sensor replacement Sensor placed on the back of right arm Patient left visit with sensor in warmup Reviewed how to interpret trend arrows Reminded patient that to check finger sticks if symptoms do not match sensor reading. Discussed lag time between finger stick and sensor data.? Instructed patient she should always keep blood glucometer for backup testing if needed Reviewed delay of CGM from fingersticks Reminded pt that if symptoms do not match sensor still needs to check fingersticks. Portions of this note were created using voice recognition software, please excuse any words or phrases that may have been misinterpreted. Patient Instructions: Patient instruction: CGM provides information on blood glucose control throughout the day, including hyperglycemia and hypoglycemia. ? Continue to monitor blood glucose as instructed. Follow nutrition guidelines provided. Report any discomfort promptly to health care provider. ?Stay well-hydrated. You can bathe ,shower, swim and exercise while wearing the glucose sensor. Do not submerge glucose sensor in water for more than 30 minutes. Coding Level of Care Code Est Pt Level 1 (68972) Diagnoses Diabetes E11.9
== END 2024-10-02 15:01 | disposition home or self-care (01) ==
PROVIDERS: Visit Provider Registered Nurse Diabetes Educator
DX: E11.9 Type 2 diabetes mellitus without complications (principal)

== ENCOUNTER → 2024-10-02 14:14 | Outpatient (BNVA) | payer OTHER, SELFPAY | PROVIDERS: Visit Provider Registered Nurse Diabetes Educator | DX: E11.9 Type 2 diabetes mellitus without complications (principal) | CPT/HCPCS: 99211 ==

== ENCOUNTER 2024-10-17 14:15 | Outpatient (AMB) | payer OTHER, SELFPAY ==
--- NOTE | 2024-10-17 09:10 | A.OFFVIS_ITS ---
Vital Signs 10/17/24 14:24 Height 5 ft 8 in Weight 284 lb 6.341 oz BMI 43.2 BP 120/78 Blood Pressure Location Rt brachial Position Sitting Pulse 105 H Pulse Source Pulse Oximeter Intake Visit Reasons: DM Intake Note: Patient presents today for a follow-up on Type 2 Diabetes Mellitus: Last Diabetic eye exam was on: DUE Last Podiatry exam was on: Patient does not see a Director Business Development Most recent HbA1c: 9.3%, 10/17/2024 Random Glucose- 273 mg/dL, Today It Service Manager Required: No Accompanied by: Self / Same As Patient Allergies No Known Allergies Allergy (Verified 10/17/24 14:25) Medication List - Last Reconciled 10/17/24 by Kaylynn Abrams NP amlodipine 5 mg PO DAILY blood sugar diagnostic (FreeStyle Lite Strips) As directed blood-glucose sensor (FreeStyle Franklin 3 Plus Sensor device) As directed duloxetine (Cymbalta) 30 mg PO DAILY 90 days FreeStyle Franklin 3 [place] (blood-glucose meter,continuous) for use with glucose sensor NS insulin glargine 25 units (0.25 mL) subcut QPM insulin lispro (Admelog U-100 Insulin lispro) See Protocol units subcut QIDACHS insulin syringe-needle U-100 (BD Insulin Syringe Ultra-Fine) daily lancets (FreeStyle Lancets) 3 times per day lisinopril 20 mg See Protocol PO DAILY methadone 120 mg PO DAILY trazodone 50 mg PO DAILY 30 days HPI Comments Details: 39 YO female who is seen in f/u for type 2 diabetes. She was seen in consult 07/09/2024 with an A1c of 12.3%. At the time of her visit labs were ordered to determine the type of diabetes which have not yet been done (lab had difficulty drawing blood work) Freestyle franklin was started at her last visit. The patient has a history of opioid use disorder on methadone, abscess of the buttocks requiring hospitalization 2023, osteomyelitis and cellulitis of the right foot requiring hospitalization in July 2024 status post 6 weeks antibiotic therapy and recently seen by I and D 09/10/2024 with no additional follow-up needed unless recurrence. Foot ulcer has healed and she is no longer going to the wound center however has been instructed to return if the area opens op. She has additional prior history of uncontrolled DM,gastroparesis, obesity, PCOS, opioid use disorder, history of nausea. During her hospital stay she was seen by vascular and circulation to the right leg was widely patent without intervention needed. She is not using street drugs. Her sugars had been in better control but she ran out of test strips prior to her initial consultation and not been testing her sugar or taking insulin. She has had intermittent nausea, fatigue and feeling weak. Denies at present. Ketones in the office today are negative. She has not had a primary care provider in quite some time and has been getting were knows of her medication through the ER. She has an appointment in March. She is requesting a renewal today of Cymbalta which she takes for depression which has been stable. She does see a counselor at the addiction clinic. Most recent A1C 10/17/24 9.3% 07/09/24 12.3% Initially diagnosed with T2DM at age 25 y.o. Was initially started on treatment with diet and was able to bring her numbers down with 50 pound weight loss. Current regimen: Lantus 25 units state she missed once daily due to falling asleep Lispro sliding scale before meals 151 - 200 4 units 201 - 250 6 units 251 - 300 8 units 301 - 350 12 units Over 350 14 units Freestyle average glucose: [ 313] 14 day continuous glucose monitor report reviewed Glucose Managment indicator 10.8 % Days with CGM data 98 % TIme in ranges: Seventy-eight % very high (above 250) 18 % high ?(181-250) 4 % in range ?(70-180] 0 % low (69-55) 0 % ?very low (below 54) Glucose variability 22.3 target less than 36 Interpretation [readings persistently running 160 points above trget with with a especially high readings overnight ] Reports low sugars none recent. Treats lows with glucose Most recent A1C 12.3 % on 07/09/2024, down from prior 13.2 on November 2023. Family history of T2DM in []. Has eyes checked yearly, last eye exam scheduled for 09/12/24 no retinopahy Has neuropathy some shooting pain better on cymbalta does not see podiatry No known nephropathy, on andrew-i no recent microalbumin 08/17/2024 eGFR>60 Not on statin no lipid profile in EHR [Denies] CAD. Works for [employer] 4-6 hours per day Diet: break yogurt or muffin top lunch leftovers dinner chick sand salad some pizza at night eats: poptarts cheese sticks fruit No recent diabetes education. [facility] Medical History (Updated 10/17/24 @ 15:10 by Kaylynn Abrams NP) Neuropathy History of open wound of lower extremity Opioid use disorder Hypertension Sepsis Depression PCOS (polycystic ovarian syndrome) Rash Polysubstance (excluding opioids) dependence, daily use Methadone maintenance therapy patient Anxiety and depression Diabetes Surgical History Hx of removal of cyst Family History Father No problems noted. Mother Hx of diabetes mellitus Sister Heart disease Social History Household Members: Children Household Members Other:: daughter Housing: Apartment Do you presently have visiting nurse or other home services: No Alcohol intake: current Alcohol intake frequency: does not drink Patient Tobacco Use Status: Never used Tobacco Tobacco use type: Cigarette Cigarette Packs Per Day: 3 Cigarettes Per Day: 60.0 Years Smoked: 2 e-Cigarette/Vaping Use: Never Used Substance Use Type: Marijuana Advance Directives Date on File: 01/11/22 service: No Current occupational status: unemployed Physical Exam Vital Signs: Last Vital Signs Pulse 105 H 10/17/24 14:24 BP 120/78 10/17/24 14:24 BMI result Body Mass Index 43.2 Const Other: Absence of Cushingoid features. Absence of acromegalic features. Neck exam reveals nl size thyroid about 15 gms. No thyroid nodules palpable. No carotid bruits present. Lungs CTA. Heart S1 S2, Reg R/R. No M/R G. Skin exam reveals absence of vitiligo or acanthosis nigricans. No edema Visual exam of foot performed. No ulcerations or open lesions. skin extremely dry and flaky. No inter digit maceration or fissuring. + onychomycosis, no callouses. Sensation intact to monofilament exam. Vibratory sensation is diminished with 128 Hz tuning fork. Great toe has small scabbed area, 1cm looks clean no redness or dranage Office Procedures Glucose Monitoring Details Details: hpi 92110 - Glucose monitoring, continuous-physician I&R Procedure code (CPT) selection complete Glucose Monitoring Details Details: see hpi 75113 - Glucose monitoring, continuous-physician I&R Procedure code (CPT) selection complete Results AMB Hemoglobin A1c AMB Hemoglobin A1c 9.3 % Last Edit by PEGGY Muniz on 10/17/24 14:48 UR Ketone Dip UR Ketone Dip Negative Last Edit by PEGGY Muniz on 10/17/24 14:56 Results Reviewed Results Reviewed: Laboratory Last Values Glucose (Clinic) 273 mg/dL (60-115) H 10/17/24 14:36 Assessment & Plan Assessment & Plan (1) Diabetes: Code(s): E11.9 - Type 2 diabetes mellitus without complications Category: Medical Plan: 39-year-old type 2 diabetic with recently resolved osteomyelitis with a longstanding history of poor control. Patient was again asked to have fasting blood work to determine the type of diabetes that she has and to keep herself well hydrated. She has started with a glucose sensor. Sugar running 313 average, negative ketones today. Ketone test strips and dka protocol reviewed and print out given. New dosing: stop lantus once she picks up Tresiba change tresiba dosing to am Tresiba 34 units Lispro tid before meals 80-100 4 units 101-150 8 units 151-200 12 units 201-250 16 units 251-300 18 units 251-300 18 units and follow dka protocol 301-350 20 units and follow dka protocol over 350 22 units and follow dka protocol (2) Neuropathy: Code(s): G62.9 - Polyneuropathy, unspecified Category: Medical Plan: capcisin cream urea for dry skin refer to podiatry dm shoes check feet daily->wound center immediately for any open areas Orders: Orders AMB Hemoglobin A1c Today E11.9 - Type 2 diabetes mellitus without complications, R73.9 - Hyperglycemia, unspecified AMB Glucose Monitoring Today E11.9 - Type 2 diabetes mellitus without complicat ions AMB Glucose Monitoring Today E11.9 - Type 2 diabetes mellitus without complications AMB Ketone Urine Dipstick Today E11.9 - Type 2 diabetes mellitus without complications, R73.9 - Hyperglycemia, unspecified Referrals Podiatry Referral E11.9 - Type 2 diabetes mellitus without complications Medications: New insulin lispro (Admelog U-100 Insulin lispro) 80-100 4 units, 100-150 8 units 151-200 12 units 201-250 16 units 251-300 18 units 301-350 20 units over 350 22 units over 250 folllow ketone testing policy subcutaneously use as directed; 30 days 9 mL 3RF pen needle, diabetic (BD Edel 2nd Gen Pen Needle) qid 200 ea 11RF capsaicin 0.025% do not wash area for at least 30 min after application wash your hands after applying 1 appl topical TID 30 days 60 grams 3RF insulin degludec (Tresiba FlexTouch U-200 insulin) 34 units (0.17 mL) subcut DAILY 30 days 5.1 mL 3RF acetone (urine) test (Ketone Urine Test strips) prn qid glucose over 250, nausea, vomiting illness 25 ea 2RF urea 20% 1 appl topical BID 30 days PRN 85 grams 1RF apply to dry skin on feet E11.9 - Type 2 diabetes mellitus without complications Patient Instructions: Check your feet daily looking for any signs of infection, drainage, redness, ulceration and seek medical attention if this occurs. Break in shoes gradually and do not wear open-toed shoes or walk stocking footed or barefooted. Symptoms of DKA (diabetic ketoacidosis): early: frequent urination, dry mouth, fatigue, feeling ill, severe symptoms: ketones in the urine, abdominal pain, nausea, vomiting and weakness. It is important to hydrate with sugar free liquids every 15-30 minutes and bring the sugars down to normal levels. If you are moderate or severe with ketones or unable to bring glucose to less than 200, go to the emergency room. The patient was counseled to achieve a target A1C of 7% (154 avg). Fasting blood sugars should be 90-130 in the morning and less than 180 two hours after meals. Reviewed the relationship between poor diabetic control and the development of complications. Take 15 carb carbohydrate grams to treat a low sugar (3-4 glucose tablets, half a glass of juice or 15 carbohydrate grams of soft candy such as gummie snacks). Recheck your sugar in 15 minutes and re-treat again with 15 carbohydrate grams if low or still with symptoms. Do not drive a car or operate machinery if you do not know what your blood sugar is, if it is low or in excess of 300. Coding Level of Care Code Est Pt Level 5 (37887) Complex EM visit Add On G2211 Diagnoses Diabetes E11.9 Neuropathy G62.9 CPT Codes Details - CPT: 04288 - Glucose monitoring, continuous-physician I&R ([id number]) Details - CPT: 09611 - Glucose monitoring, continuous-physician I&R ([id number]) Time Spent (min) 45 Comment Time spent reviewing labs/provider notes, face to face, chart doc
--- OUTSIDE RECORDS SUMMARY | 2024-10-17 14:17 | XMS_ITS ---
Author Organization [facility] Address Unknown Problems Problem Status Start Date End Date OTHER ACUTE OSTEOMYELITIS, O THER SITE (Primary) (M86.18 - ICD-10-CM) ACTIVE 07/09/2024 METHICILLIN SUSCEPTIBLE STAP HYLOCOCCUS AUREUS INFECTION THE CAUSE OF DISEASES CLASSIFIED ELSEWHERE (B95.61 - ICD-10-CM) ACTIVE 03/05/2024 OPIOID DEPENDENCE, UNCOMPLICATED (F11.20 - ICD-10-CM) ACTIVE 03/05/2024 TYPE 2 DIABETES MELLITUS WIT H HYPERGLYCEMIA (E11.65 - ICD-10-CM) ACTIVE 03/05/2024 MORBID (SEVERE) OBESITY DUE TO EXCESS CALORIES (E66.01 - ICD-10-CM) ACTIVE 03/05/2024 OTHER ABNORMALITIES OF GAIT AND MOBILITY (R26.89 - ICD-10-CM) ACTIVE 03/05/2024 WEAKNESS (R53.1 - ICD-10-CM) ACTIVE 03/05/2024 BACTEREMIA (R78.81 - ICD-10-CM) ACTIVE HYPOKALEMIA (E87.6 - ICD-10-CM) ACTIVE ESSENTIAL (PRIMARY) HYPERTENSION (I10 - ICD-10-CM) ACT LIZBETH 03/05/2024 MAJOR DEPRESSIVE DISORDER, R ECURRENT, UNSPECIFIED (F33.9 - ICD-10-CM) ACTIVE 03/05/2024 CYCLICAL VOMITING SYNDROME U NRELATED TO MIGRAINE (R11.15 - ICD-10-CM) ACTIVE 03/05/2024 POLYCYSTIC OVARIAN SYNDROME (E28.2 - ICD-10-CM) ACTIVE 03/05/2024 ANXIETY DISORDER, UNSPECIFIED (F41.9 - ICD-10-CM) ACTI VE 03/05/2024 ANEMIA, UNSPECIFIED (D64.9 - ICD-10-CM) ACTIVE 0 03/05/2024 DIFFICULTY IN WALKING, NOT E LSEWHERE CLASSIFIED (R26.2 - ICD-10-CM) ACTIVE 07/09/2024 CUTANEOUS ABSCESS OF BUTTOCK (L02.31 - ICD-10-CM) ACTI VE 03/05/2024 Encounters Encounter Performer Performer Role Encounter Diagnoses Location Date Discharge - Discharged to home or self care - Home - Private home/apt. with no home health services [facility] 4 02:28 pm EDT - 4 01:20 pm EDT Discharge - Discharged to home or self care - Private home/apt. with no home health services [facility] 4 03:30 pm EST - 4 01:57 pm EST Immunizations Vaccine Date Influenza, split virus, trivalent, PF 20 2024 Social History Vital Signs Vital Sign Reading Time Taken systolicValue 130 mm[Hg] 08/15/2024 11:07 am EST diastolicValue 78 mm[Hg] 08/15/2024 11:07 am EST systolicValue 132 mm[Hg] 08/15/2024 01:14 am EST diastolicValue 64 mm[Hg] 08/15/2024 01:14 am EST systolicValue 124 mm[Hg] 08/14/2024 10:22 pm EST diastolicValue 72 mm[Hg] 08/14/2024 10:22 pm EST systolicValue 117 mm[Hg] 08/14/2024 03:08 pm EST diastolicValue 70 mm[Hg] 08/14/2024 03:08 pm EST systolicValue 122 mm[Hg] 08/14/2024 09:34 am EST diastolicValue 66 mm[Hg] 08/14/2024 09:34 am EST systolicValue 136 mm[Hg] 08/14/2024 01:44 am EST diastolicValue 62 mm[Hg] 08/14/2024 01:44 am EST systolicValue 120 mm[Hg] 08/14/2024 12:30 am EST diastolicValue 78 mm[Hg] 08/14/2024 12:30 am EST bloodSugar 239 mg/dL 08/15/2024 11:05 am EST bloodSugar 239 mg/dL 08/15/2024 11:05 am EST bloodSugar 124 mg/dL 08/15/2024 07:46 am EST bloodSugar 124 mg/dL 08/15/2024 07:45 am EST bloodSugar 193 mg/dL 08/14/2024 09:43 pm EST bloodSugar 193 mg/dL 08/14/2024 09:42 pm EST bloodSugar 215 mg/dL 08/14/2024 05:02 pm EST bloodSugar 215 mg/dL 08/14/2024 05:02 pm EST bloodSugar 145 mg/dL 08/14/2024 11:52 am EST bloodSugar 206 mg/dL 08/14/2024 08:39 am EST bloodSugar 206 mg/dL 08/14/2024 08:35 am EST bloodSugar 248 mg/dL 08/13/2024 11:32 pm EST bloodSugar 248 mg/dL 08/13/2024 11:23 pm EST bloodSugar 256 mg/dL 08/13/2024 05:29 pm EST bloodSugar 256 mg/dL 08/13/2024 05:29 pm EST oxygenSaturation 98 % 08/15/2024 01:1 4 am EST oxygenSaturation 96 % 08/14/2024 10:2 2 pm EST oxygenSaturation 97 % 08/14/2024 03:0 8 pm EST oxygenSaturation 96 % 08/14/2024 01:4 4 am EST oxygenSaturation 98 % 08/14/2024 12:3 0 am EST oxygenSaturation 95 % 08/13/2024 04:4 3 pm EST heartrate 77 /min 08/15/2024 01:14 am EST heartrate 82 /min 08/14/2024 10:22 pm EST heartrate 79 /min 08/14/2024 03:08 pm EST heartrate 86 /min 08/14/2024 01:44 am EST heartrate 80 /min 08/14/2024 12:30 am EST heartrate 84 /min 08/13/2024 04:43 pm EST temperature 98.4 [degF] 08/15/2024 01:14 am EST temperature 97.9 [degF] 08/14/2024 10:22 pm EST temperature 97.6 [degF] 08/14/2024 03:08 pm EST temperature 98.4 [degF] 08/14/2024 01:44 am EST temperature 97 [degF] 08/14/2024 12:30 am EST temperature 97.6 [degF] 08/13/2024 04:43 pm EST respirations 18 /min 08/15/2024 01:14 am EST respirations 18 /min 08/14/2024 10:22 pm EST respirations 17 /min 08/14/2024 03:08 pm EST respirations 18 /min 08/14/2024 01:44 am EST respirations 18 /min 08/14/2024 12:30 am EST painLevel 0 {score} 08/15/2024 12:43 am EST painLevel 0 {score} 08/14/2024 05:07 pm EST painLevel 1 {score} 08/14/2024 09:36 am EST painLevel 0 {score} 08/14/2024 12:54 am EST painLevel 0 {score} 08/13/2024 05:34 pm EST
[2024-10-17 14:24] VITALS: BP 120/78; PULSE 105; BMI 43.2
[2024-10-17 14:40] LABS: Glucose, Whole Blood 273 mg/dL (60-115)
== END 2024-10-17 15:02 | disposition home or self-care (01) ==
PROVIDERS: Visit Provider Nurse Practitioner Adult Health
DX: E11.65 Type 2 diabetes mellitus with hyperglycemia (principal); G62.9 Polyneuropathy, unspecified
CPT/HCPCS: 95251; 99215; G2211

== ENCOUNTER → 2024-10-17 14:15 | Outpatient (BNVA) | payer OTHER, SELFPAY | PROVIDERS: Visit Provider Nurse Practitioner Adult Health | DX: E11.65 Type 2 diabetes mellitus with hyperglycemia (principal); E11.42 Type 2 diabetes mellitus with diabetic polyneuropathy; Z79.4 Long term (current) use of insulin | CPT/HCPCS: 81002; 82947; 83036; 99212 ==

== ENCOUNTER 2024-10-24 13:50 | Outpatient (AMB) | payer OTHER, SELFPAY ==
--- NOTE | 2024-10-24 07:44 | A.OFFVIS_ITS ---
Vital Signs 10/24/24 13:52 Height 5 ft 8 in Weight 284 lb BMI 43.2 BP 126/76 Blood Pressure Location Rt brachial Position Sitting Pulse 86 Pulse Source Pulse Oximeter Pulse Oximetry (%) 97 Oxygen Delivery Method Room Air Intake Visit Reasons: DM Intake Note: Patient presents today for a follow-up on Type 2 Diabetes Mellitus: Last Diabetic eye exam was on: DUE Last Podiatry exam was on: Patient does not see a Director Marketing Most recent HbA1c: 9.3%, 10/17/2024 Random Glucose- 198 mg/dL, Today Ethylbenzene Oxidizer Required: No Accompanied by: Self / Same As Patient Allergies metformin Adverse Reaction (Intermediate, Verified 10/24/24 14:25) Nausea HPI Comments Details: 39 YO female who is seen in f/u for type 2 diabetes. She was seen in consult 07/09/2024 with an A1c of 12.3% and had a f/u visit earlier this month which showed an average glucose of 311. Basal insulin was changed to Tresiba and her basal bolus schedule was intensify to lower glucose average. At the time of her initial visit labs were ordered to determine the type of diabetes which have not yet been done (lab had difficulty drawing blood work) The patient has a history of opioid use disorder on methadone, abscess of the buttocks requiring hospitalization 2023, osteomyelitis and cellulitis of the right foot requiring hospitalization in July 2024 status post 6 weeks antibiotic therapy and recently seen by I and D 09/10/2024 with no additional follow-up needed unless recurrence. Foot ulcer has healed and she is no longer going to the wound center however has been instructed to return if the area opens op. She has additional prior history of uncontrolled DM,gastroparesis, obesity, PCOS, opioid use disorder, history of nausea. During her hospital stay she was seen by vascular and circulation to the right leg was widely patent with out intervention needed. She is not using street drugs. Her sugars had been in better control but she ran out of test strips prior to her initial consultation and not been testing her sugar or taking insulin. She has had intermittent nausea, fatigue and feeling weak. Denies at present. She has not had a primary care provider in quite some time and has been getting her medication through the ER. She has an appointment in March. She is requesting a renewal today of Cymbalta which she takes for depression which has been stable. She does see a counselor at the addiction clinic. Most recent A1C 10/17/24 9.3% 07/09/24 12.3% MEtsameer Initially diagnosed with T2DM at age 25 y.o. Was initially started on treatment with diet and was able to bring her numbers down with 50 pound weight loss. metformin caused nausea Current regimen: Tresiba 34 units Lispro tid before meals 80-100 4 units 101-150 8 units 151-200 12 units 201-250 16 units 251-300 18 units 251-300 18 units and follow dka protocol 301-350 20 units and follow dka protocol over 350 22 units and follow dka protocol 7 day average 265 Freestyle franklin sensor 3 average glucose: 290 14 day continuous glucose sensor report reviewed Glucose Management indicator 10.2 % Time CGM active [ ] % TIme in ranges: Sixty-two % very high (above 250) 22 % high (181-250) 9 % in range (70-180] 0 % low (69-55) 0 % very low (below 54) 25.1 Glucose variability(target <36%) Interpretation of CGMS [readings elevated pre and postprandial ] Reports low sugars none recent. Treats lows with glucose Family history of T2DM in []. No retinopathy: Has eyes checked yearly, last eye exam scheduled for 09/12/24 Has neuropathy some shooting pain better on cymbalta does not see podiatry, referred last visit urea prescribed for dry skin No known nephropathy, on andrew-i microalbumin 15.0 09/18/24 08/17/2024 eGFR>60 Not on statin no lipid profile in EHR Has been ordered Denies CAD. Denies chest pain, dyspnea or symptoms of claudication Works for [employer] 4-6 hours per day Diet: break yogurt or muffin top lunch leftovers dinner chick sand salad some pizza at night eats: poptarts cheese sticks fruit No recent diabetes education. [facility] Medical History (Updated 10/17/24 @ 15:10 by Kaylynn Abrams NP) Neuropathy History of open wound of lower extremity Opioid use disorder Hypertension Sepsis Depression PCOS (polycystic ovarian syndrome) Rash Polysubstance (excluding opioids) dependence, daily use Methadone maintenance therapy patient Anxiety and depression Diabetes Surgical History Hx of removal of cyst Family History Father No problems noted. Mother Hx of diabetes mellitus Sister Heart disease Social History Household Members: Children Household Members Other:: daughter Housing: Apartment Do you presently have visiting nurse or other home services: No Alcohol intake: current Alcohol intake frequency: does not drink Patient Tobacco Use Status: Never used Tobacco Tobacco use type: Cigarette Cigarette Packs Per Day: 3 Cigarettes Per Day: 60.0 Years Smoked: 2 e-Cigarette/Vaping Use: Never Used Substance Use Type: Marijuana Advance Directives Date on File: 01/11/22 service: No Current occupational status: unemployed Physical Exam Const Other: Absence of Cushingoid features. Absence of acromegalic features. Neck exam reveals nl size thyroid about 15 gms. No thyroid nodules palpable. No carotid bruits present. Lungs CTA. Heart S1 S2, Reg R/R. No M/R G. Skin exam reveals absence of vitiligo or acanthosis nigricans. No edema deferred today patient reports no ulceration examined within last few weeks Office Procedures Glucose Monitoring Details Details: see [facility] [id number] - Glucose monitoring, continuous-physician I&R Procedure code (CPT) selection complete Assessment & Plan Assessment & Plan (1) Diabetes: Code(s): E11.9 - Type 2 diabetes mellitus without complications Category: Medical Plan: see below Plan 39-year-old diabetic on recently intensified basal bolus insulin. Most recent A1c 9.3% 10/17/24 down from previous 12.6%. Care has been complicated by lack of a primary care physician and loss of insurance in the past. Her glucose readings are still elevated but coming down. We reviewed the new scale and I advised her that if her numbers are not coming into better control and are she has any lows that she should contact the office. She will have blood work done when she is able to fasting. If type 2 is confirm ed then we can consider other alternatives. New dosing: Tresiba 42 units Lispro tid before meals 80-100 4 units eat first 101-150 10 units 151-200 14 units 201-250 20 units 251-300 24 units and follow dka protocol 301-350 28 units and follow dka protocol over 350 20 units and follow dka protocol The patient had an opportunity to ask questions regarding treatment plan. The patient expressed understanding and agreement with the above treatment plan. She was given referral to pod. She is no longer followed by I & D or wound care since issue resolved. Has yet to try capsacin cream or urea. The patient is aware they should contact our office by phone for worsening glucose readings or for any low blood sugars which may warrant a change in diabetes medication. Compliance is encouraged with medications and any followup testing/consults which may have been ordered. Orders: Orders AMB Glucose Monitoring Today E11.9 - Type 2 diabetes mellitus without complications Medications: Changed From blood-glucose sensor (FreeStyle Franklin 3 Plus Sensor device) As directed 6 ea 3RF To blood-glucose sensor (FreeStyle Franklin 3 Plus Sensor device) every 15 days for continuous use 6 ea 3RF Discontinued insulin glargine Discontinued Reason: Doctor's Order 25 units (0.25 mL) subcut QPM 10 mL 0RF Patient Instructions: The patient was counseled to achieve a target A1C of 7% (154 avg). Fasting blood sugars should be 90-130 in the morning and less than 180 two hours after meals. Reviewed the relationship between poor diabetic control and the development of complications. Sick day management reviewed. Check your feet daily looking for any signs of infection, drainage, redness, ulceration and seek medical attention if this occurs. Break in shoes gradually and do not wear open-toed shoes or walk stocking footed or barefooted. . Coding Level of Care Code Est Pt Level 4 (24231) Complex EM visit Add On G2211 Diagnoses Diabetes E11.9 CPT Codes Details - CPT: 87365 - Glucose monitoring, continuous-physician I&R ([id number]) Time Spent (min) 30 Comment Time spent reviewing labs/provider notes, glucose,sensor reports, face to face, chart doc
[2024-10-24 13:52] VITALS: BP 126/76; PULSE 86; O2SAT 97; BMI 43.2
[2024-10-24 14:13] LABS: Glucose, Whole Blood 198 mg/dL (60-115)
== END 2024-10-24 14:33 | disposition home or self-care (01) ==
PROVIDERS: Visit Provider Nurse Practitioner Adult Health
DX: E11.9 Type 2 diabetes mellitus without complications (principal)
CPT/HCPCS: 95251; 99214; G2211

== ENCOUNTER → 2024-10-24 13:50 | Outpatient (BNVA) | payer OTHER, SELFPAY | PROVIDERS: Visit Provider Nurse Practitioner Adult Health | DX: E11.9 Type 2 diabetes mellitus without complications (principal); Z79.4 Long term (current) use of insulin | CPT/HCPCS: 82947; 99212 ==

== ENCOUNTER 2024-10-30 13:16 | Outpatient (AMB) | payer OTHER, SELFPAY ==
--- NOTE | 2024-10-30 13:39 | A.OFFVIS_ITS ---
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 Required: No Accompanied by: Self / Same As Patient Allergies metformin Adverse Reaction (Intermediate, Verified 10/24/24 14:25) Nausea HPI Comprehensive Diabetes Asmnt Most Recent Diabetes Results: Microalb/Creat Ratio 10.7 ug/mg cr (<30) 09/18/24 [facility] Medical History (Updated 10/17/24 @ 15:10 by Kaylynn Abrams NP) Neuropathy History of open wound of lower extremity Opioid use disorder Hypertension Sepsis Depression PCOS (polycystic ovarian syndrome) Rash Polysubstance (excluding opioids) dependence, daily use Methadone maintenance therapy patient Anxiety and depression Diabetes Surgical History Hx of removal of cyst Family History Father No problems noted. Mother Hx of diabetes mellitus Sister Heart disease Social History Household Members: Children Household Members Other:: daughter Housing: Apartment Do you presently have visiting nurse or other home services: No Alcohol intake: current Alcohol intake frequency: does not drink Patient Tobacco Use Status: Never used Tobacco Tobacco use type: Cigarette Cigarette Packs Per Day: 3 Cigarettes Per Day: 60.0 Years Smoked: 2 e-Cigarette/Vaping Use: Never Used Substance Use Type: Marijuana Advance Directives Date on File: 01/11/22 service: No Current occupational status: unemployed Assessment & Plan Assessment & Plan (1) Diabetes: Code(s): E11.9 - Type 2 diabetes mellitus without complications Plan: Diabetes self-management education and support participation record Assessment/scale: 1= needs instructed? 2= needs review? 3= comprehend keep point? 4= demonstrates understanding/ competent? NC= Not Covered Topics Learning Objective: Initial visit Initial or post srvc Initial or post srvc Initial or post srvc Initial or post srvc Initial or post srvc Post srvc Comments Pre Edu-assessment/plan Outcome or reassess Outcome or reassess Outcome or reassess Outcome or reassess Outcome or reassess Outcome or reassess Diabetes pathophysiology 1 Healthy eating 2 Being active 2 Taking medication 1 Monitoring glucose 1 Acute complication 2 Chronic complicated 2B Lifestyle and healthy coping 1 Diabetes distress in support 1 ?Diabetes pathophysiology: ?Defined diabetes med identify own type of diabetes; list 3 options for treating diabetes Healthy eating: ?Described effect of type, amount and ?timing of food on blood glucose; list 3 methods for planning meal Being active: ?State effect of exercise on blood glucose level Taking medication: ?State effect of diabetes medications on diabetes; name diabetes medications taking, action and side effects Monitoring glucose: ?Identify recommended blood glucose targets and personal target Acute complication: ?List symptoms and treatment of hyper and hypoglycemia, DKA, sick day guidelines and guidelines for severe weather or situations of crisis and diabetes supply manage Chronic complication: ?To find the relationship of blood glucose levels to long- term complications of diabetes in screening and preventative measures Lifestyle and healthy coping: ?Described lifestyle and healthy coping strategies to rule out diabetes self-management Diabetes to stress and support: ?Recognize Diabetes to stress and be able to identified support options Patient Assessment Assess patient education level/literacy/barriers, 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 Patient questions/concerns, patient's last A1c on 10/17/2024 9.3% Patient uses zintin Franklin 3 review glucose numbers Average glucose for past 14 days 264 mg/dL Above target 56% At target 44% Below target 0% Suggested to patient she increase lispro sliding scale 101-150 10 units to 12 units 151-200 14 units to 16 units Learning objectives: The patient was provided with verbal and written education on the following topics as outlined below. The patient met all learning objectives and was able to verbalize understanding and provide teach back of education topics discussed . The patient was provided with the opportunity to ask questions and all questions were answered. What is Diabetes? Pathophysiology How the body produces and uses insulin Identify type of DM Risk factors Signs of Diabetes Brief overview of Diabetes Management Monitoring blood sugar Following a meal plan Regular exercise Maintaining a healthy weight Taking medication as needed Members of the care team (PCP, RN, MA, RD, CDE, kennel supervisor) Blood glucose monitoring When/how often to test Target blood sugar ranges Introduction to Nutrition Importance of healthy diet in managing DM Diet is personalized to individual preference Review patient?s regular diet/food preferences Who prepares meals/does food shopping/ Dining out?/ Barriers? How diet effects glucose Eating 3 balanced meals a day with small, healthy snacks between meals Review food groups Carbohydrates: What is a carbohydrate/Which food/food groups are considered carbohydrates Effect of carbohydrates on blood glucose Portion sizes Reading food labels Basic carb counting (if applicable per nursing assessment) Plate method Meal planning Recommendations: Follow plate method, consistent carbs and read nutritional labels. Smart Goal: Patient will reduce portion of carbohydrates at meals and snacks before next visit with Diabetes Education Educational Materials: The patient was provided with the following written educational materials: Planning Healthy Meals Handout Patient Response to instructions: Comprehension of Instructions: Fair Readiness to make changes: Contemplation How confident they feel about making changes: Positive Portions of this note were created using voice recognition software, please excuse any words or phrases that may have been misinterpreted. Patient Instructions: Tresiba 42 units Lispro tid before meals 80-100 4 units eat first 101-150 12 units 151-200 16 units 201-250 20 units 251-300 24 units and follow dka protocol 301-350 28 units and follow dka protocol over 350 30 units and follow dka protocol Include regular daily activity. ADA recommends 30 minutes of exercise 5 days a week. Weight loss talk to PCP or Relay Operator before starting new plan. Test blood sugar as directed; Fasting and 2hpp largest meal. Watch trends in results. Utilize results and to assess how food, physical activity and medications affect blood sugar results. Bring glucometer or CGM to next visit. Be knowledgeable about diabetes medication, its action, side effects, efficacy, toxicity, prescribed dosage, appropriate timing and frequency of administration, effect of missed and delayed doses and instructions for storage, travel and safety. Problem solving techniques to monitor hypo/hyperglycemia episodes and treatments. Reduce risk reduction behaviors, smoking cessation, regular eye, foot and dental examinations. Coding Level of Care Code Est Pt Level 1 (39824) Diagnoses Diabetes E11.9
== END 2024-10-30 14:04 | disposition home or self-care (01) ==
PROVIDERS: Visit Provider Registered Nurse Diabetes Educator
DX: E11.9 Type 2 diabetes mellitus without complications (principal)

== ENCOUNTER → 2024-10-30 13:16 | Outpatient (BNVA) | payer OTHER, SELFPAY | PROVIDERS: Visit Provider Registered Nurse Diabetes Educator | DX: E11.9 Type 2 diabetes mellitus without complications (principal) | CPT/HCPCS: 99211 ==

== ENCOUNTER 2024-11-04 13:49 | Outpatient (AMB) | payer OTHER, SELFPAY ==
--- NOTE | 2024-11-04 14:06 | A.OFFVIS_ITS ---
VS Expanded 11/04/24 14:08 11/11/24 14:09 Height 5 ft 8 in 5 ft 8 in Weight 289 lb 3.944 oz 289 lb BMI 44.0 43.9 Intake Visit Reasons: DM Allergies metformin Adverse Reaction (Intermediate, Verified 10/24/24 14:25) Nausea Nutrition Presentation Details: Pt presents for MNT for T2DM food frequency fruits: 1-2/d Ve-2/d dairy : 2+/d starches >20/d fish : 0-1/m pastries >1 beverages: water, diet beverages physical activity ADL etoh/smoking:--- BS Monitoring Most Recent Diabetes Results: No Data to Display ZTI-Mfqkzju-Yq.Jeor Equation Height: 5 ft 8 in Weight: 289 lb Resting Metabolic Rate: 2041.11 Calculated Activity Level: Sedentary Calories Needed to Maintain Weight: 2449.33 Diagnosis Nutrition problem #1: altered nutrition labs As related to (etiology) #1: diagnosis As evidenced by (sign/symptom) #1: abnormal lab values [facility] Medical History (Updated 10/17/24 @ 15:10 by Kaylynn Abrams NP) Neuropathy History of open wound of lower extremity Opioid use disorder Hypertension Sepsis Depression PCOS (polycystic ovarian syndrome) Rash Polysubstance (excluding opioids) dependence, daily use Methadone maintenance therapy patient Anxiety and depression Diabetes Surgical History Hx of removal of cyst Family History Father No problems noted. Mother Hx of diabetes mellitus Sister Heart disease Social History Household Members: Children Household Members Other:: daughter Housing: Apartment Do you presently have visiting nurse or other home services: No Alcohol intake: current Alcohol intake frequency: does not drink Patient Tobacco Use Status: Never used Tobacco Tobacco use type: Cigarette Cigarette Packs Per Day: 3 Cigarettes Per Day: 60.0 Years Smoked: 2 e-Cigarette/Vaping Use: Never Used Substance Use Type: Marijuana Advance Directives Date on File: 01/11/22 service: No Current occupational status: unemployed Assessment & Plan Assessment & Plan (1) Diabetes: Code(s): E11.9 - Type 2 diabetes mellitus without complications Category: Medical Plan: Wt: 131 Kg ( 11/25 ) Est kcal needs as per MSJ: 2400 (40% carb, 30% protein/fat) Est fluid needs as per 25-30 ml/d: 4000 Est prot per day as per 1 g/kg bw: 131 Recommend fiber intake : 8-10 g per day and gradually increase to 25-28 g per day for women and 35-38 g for men or as tolerated Recommend sodium intake per day : l less than 2300 mg Educated patient on: ( R = reviewed V = verbalizes understanding N/R = needs review N/A = not applicable * Food sources of carbohydrate, adequate serving sizes and its role in various health conditions: R V N/R * Differences between complex carbohydrates a simple carbohydrates, role of fiber in diet: R * Lean protein sources of foods: R V NR * Differences between types of fats and role in diet (mono on saturated fat fatty acids, saturated fatty acids, trans fats): R V N/R * Food sources of sodium in salt and healthy modifications for heart health in kidney health: R V R/V * Vitamins and minerals: R V N/R * Healthy plate method concept: R V N/R * Physical activity: Benefits a precaution: R V N/R * Hypoglycemia protocol (rule of 15): R V N/R * Dietary prevention of Hyperglycemia: R V R/V Medications: Discontinued insulin lispro (Admelog U-100 Insulin lispro) Discontinued Reason: Doctor's Order 80-100 4 units, 100-150 8 units 151- 200 12 units 201-250 16 units 251-300 18 units 301-350 20 units over 350 22 units over 250 folllow ketone testing policy subcutaneously use as directed; 9 mL 3RF 30 days Patient Instructions: Work on reducing total carb per meal to 75 g or less following healthy plate method and 0-20 g as snack 1-2 /day if needed Include lean protein foods (cottage cheese, eggs,poultry, tofu, beans ) in your meal s Try as bedtime snack cottage cheese with applesauce practice mindful eating Coding Level of Care Code Nutr Indiv Intake (09959) Diagnoses Diabetes E11.9 Time Spent (min) 30
[2024-11-04 14:08] VITALS: BMI 44.0
[2024-11-11 14:09] VITALS: BMI 43.9
== END 2024-11-04 14:42 | disposition home or self-care (01) ==
PROVIDERS: Visit Provider Dietitian, Registered
DX: E11.9 Type 2 diabetes mellitus without complications (principal)

== ENCOUNTER → 2024-11-04 13:49 | Outpatient (BNVA) | payer OTHER, SELFPAY | PROVIDERS: Visit Provider Dietitian, Registered | DX: E11.9 Type 2 diabetes mellitus without complications (principal) | CPT/HCPCS: 97802 ==

== ENCOUNTER 2024-11-06 12:13 | Outpatient (AMB) | payer OTHER, SELFPAY ==
--- NOTE | 2024-11-06 08:11 | A.OFFVIS_ITS ---
Vital Signs 11/06/24 12:33 Height 5 ft 8 in Weight 291 lb 0.163 oz BMI 44.2 BP 120/80 Blood Pressure Location Rt brachial Position Sitting Pulse 95 Pulse Source Pulse Oximeter Pulse Oximetry (%) 99 Oxygen Delivery Method Room Air Intake Visit Reasons: DM Intake Note: Patient presents today for a follow-up on Type 2 Diabetes Mellitus: Last Diabetic eye exam was on: DUE Last Podiatry exam was on: Patient does not see a Reed Fixer Most recent HbA1c: 9.3%, 10/17/2024 Random Glucose- 248 mg/dL, Today Commercial Intelligence Manager Required: No Accompanied by: Self / Same As Patient Allergies metformin Adverse Reaction (Intermediate, Verified 10/24/24 14:25) Nausea HPI Comments Details: 39 YO female who is seen in f/u for type 2 diabetes. She was seen in consult 07/09/2024 with an A1c of 12.3% and has had several follow up visits. Basal insulin was changed to Tresiba and her basal bolus schedule has been intensify to lower glucose average. She saw Danielle CORNEJO 2 weeks ago and her scale was again intensify. This dropped her average from 264-234 over the last 2 weeks. At the time of her initial visit labs were ordered to determine the type of diabetes which have not yet been done (lab had difficulty drawing blood work) The patient has a history of opioid use disorder on methadone, abscess of the buttocks requiring hospitalization 2023, osteomyelitis and cellulitis of the right foot requiring hospitalization in July 2024 status post 6 weeks antibiotic therapy and recently seen by I and D 09/10/2024 with no additional follow-up needed unless recurrence. Foot ulcer has healed and she is no longer going to the wound center however has been instructed to return if the area opens op. She has additional prior history of uncontrolled DM,gastroparesis, obesity, PCOS, opioid use disorder, history of nausea. During her hospital stay she was seen by vascular and circulation to the right leg was widely patent without intervention needed. She is not using street drugs. Her sugars had been in better control but she ran out of test strips prior to her initial consultation and not been testing her sugar or taking insulin. She has had intermittent nausea, fatigue and feeling weak. Denies at present. She has not had a primary care provider in quite some time and has been getting her medication through the ER. She has an appointment in March. She does see a counselor at the addiction clinic. Most recent A1C 10/17/24 9.3% 07/09/24 12.3% Initially diagnosed with T2DM at age 25 y.o. Was initially started on treatment with diet and was able to bring her numbers down with 50 pound weight loss. metformin caused nausea Current regime: Freestyle fabiano sensor 3 average glucose: [ ] 14 day continuous glucose sensor report reviewed Glucose Management indicator [ ] % Time CGM active [ ] % TIme in ranges: [ ] % very high (above 250) [ ] % high (181-250) [ ] % in range (70-180] [ ] % low (69-55) [ ] % very low (below 54) [ ] Glucose variability [ ] (target <36%) Interpretation of CGMS [ ] Reports low sugars none recent. Treats lows with glucose Family history of T2DM in []. No retinopathy: Has eyes checked yearly, last eye exam scheduled for 09/12/24 Has neuropathy some shooting pain better on cymbalta does not see podiatry, referred last visit urea prescribed for dry skin and has capcasin cream No known nephropathy, on andrew-i microalbumin 15.0 09/18/24 08/17/2024 eGFR>60 Not on statin no lipid profile in EHR Has been ordered Denies CAD. Denies chest pain, dyspnea or symptoms of claudication Works for [email or web address] 4-6 hours per day Diet: break yogurt or muffin top lunch leftovers dinner chick sand salad some pizza at night eats: poptarts cheese sticks fruit No recent diabetes education. [facility] Medical History (Updated 10/17/24 @ 15:10 by Kaylynn Abrams NP) Neuropathy History of open wound of lower extremity Opioid use disorder Hypertension Sepsis Depression PCOS (polycystic ovarian syndrome) Rash Polysubstance (excluding opioids) dependence, daily use Methadone maintenance therapy patient Anxiety and depression Diabetes Surgical History Hx of removal of cyst Family History Father No problems noted. Mother Hx of diabetes mellitus Sister Heart disease Social History Household Members: Children Household Members Other:: daughter Housing: Apartment Do you presently have visiting nurse or other home services: No Alcohol intake: current Alcohol intake frequency: does not drink Patient Tobacco Use Status: Never used Tobacco Tobacco use type: Cigarette Cigarette Packs Per Day: 3 Cigarettes Per Day: 60.0 Years Smoked: 2 e-Cigarette/Vaping Use: Never Used Substance Use Type: Marijuana Advance Directives Date on File: 01/11/22 service: No Current occupational status: unemployed Physical Exam Vital Signs: Last Vital Signs Pulse 95 11/06/24 12:33 BP 120/80 11/06/24 12:33 Pulse Ox 99 11/06/24 12:33 Oxygen Delivery Method Room Air 11/06/24 12:33 BMI result Body Mass Index 44.2 Const Other: Absence of Cushingoid features. Absence of acromegalic features. Neck exam reveals nl size thyroid about 15 gms. No thyroid nodules palpable. No carotid bruits present. Lungs CTA. Heart S1 S2, Reg R/R. No M/R G. Skin exam reveals absence of vitiligo or acanthosis nigricans. No edema Visual exam of foot performed. No ulcerations or open lesions. No inter digit maceration or fissuring. No onychomycosis, no callouses skin dry, no open areas. Sensation intact to monofilament exam. Vibratory sensation is normal with 128 Hz tuning fork. Office Procedures Glucose Monitoring Details Details: see hpi [id number] - Glucose monitoring, continuous-physician I&R Procedure code (CPT) selection complete Results Reviewed Results Reviewed: Laboratory Last Values Glucose (Clinic) 248 mg/dL (60-115) H 11/06/24 12:36 Assessment & Plan Assessment & Plan (1) Diabetes: Code(s): E11.9 - Type 2 diabetes mellitus without complications Category: Medical Plan: 39-year-old diabetic with a history of gastroparesis and neuropathy with a history of poor control secondary to compliance and limited access to health care. Her glucose readings are improving but remain 70-80 points above target. She is doing better with eating. New dosing Tresiba 46 units Lispro tid before meals 80-100 4 units eat first 101-150 14 units 151-200 18 units 201-250 22 units 251-300 26 units and follow dka protocol 301-350 30 units and follow dka protocol over 350 32 units and follow dka protocol She is planning to apply for disability. She has been contacted by Podiatry and we will schedule an appointment. Open area on foot has healed. She is checking her feet daily. She has been discharged by the wound center but was advised she can return p.r.n. The patient had an opportunity to ask questions regarding treatment plan. The patient expressed understanding and agreement with the above treatment plan. The patient is aware they should contact our office by phone for worsening glucose readings or for any low blood sugars which may warrant a change in diabetes medication. Compliance is encouraged with medications and any followup testing/consults which may have been ordered. Orders: Orders AMB Glucose Monitoring Today E11.9 - Type 2 diabetes mellitus without complications Medications: Changed From insulin lispro (Admelog SoloStar U-100 Insulin lispro) 80-100 4 units 101-150 8 units 151-200 12 units 201-250 16 units 251-300 18 units 301-350 20 units over 350 22 units ovr 250 check ketones subcutaneously use as directed; 30 days [address] [place] [address] 66 To insulin lispro (Admelog SoloStar U-100 Insulin lispro) 80-100 4 units 101- 150 14 units 151-200 18 units 201-250 22 units 251-300 26 units 301-350 30 units over 350 32 units over 250 check ketones subcutaneously use as directed; 30 days [address] [place] [address] 66 Refilled insulin lispro (Admelog SoloStar U-100 Insulin lispro) 80-100 4 units 101-150 14 units 151-200 18 units 201-250 22 units 251-300 26 units 301-350 30 units over 350 32 units over 250 check ketones subcutaneously use as directed; 30 days [address] [place] [address] Patient Instructions: Sick day management reviewed. Check your feet daily looking for any signs of infection, drainage, redness, ulceration and seek medical attention if this occurs. Break in shoes gradually and do not wear open-toed shoes or walk stocking footed or barefooted. The patient was counseled to achieve a target A1C of 7% (154 avg). Fasting blood sugars should be 90-130 in the morning and less than 180 two hours after meals. Reviewed the relationship between poor diabetic control and the development of complications. Take 15 carb carbohydrate grams to treat a low sugar (3-4 glucose tablets, half a glass of juice or 15 carbohydrate grams of soft candy such as gummie snacks). Recheck your sugar in 15 minutes and re-treat again with 15 carbohydrate grams if low or still with symptoms. Do not drive a car or operate machinery if you do not know what your blood sugar is, if it is low or in excess of 300. Coding Level of Care Code Est Pt Level 4 (57406) Complex EM visit Add On G2211 Diagnoses Diabetes E11.9 CPT Codes Details - CPT: 26424 - Glucose monitoring, continuous-physician I&R ([id number]) Time Spent (min) 52 Comment Time spent reviewing labs/provider notes, glucose,sensor reports, face to face, chart doc
[2024-11-06 12:33] VITALS: BP 120/80; PULSE 95; O2SAT 99; BMI 44.2
[2024-11-06 12:42] LABS: Glucose, Whole Blood 248 mg/dL (60-115)
== END 2024-11-06 12:58 | disposition home or self-care (01) ==
PROVIDERS: Visit Provider Nurse Practitioner Adult Health
DX: E11.9 Type 2 diabetes mellitus without complications (principal)
CPT/HCPCS: 95251; 99214; G2211

== ENCOUNTER → 2024-11-06 12:13 | Outpatient (BNVA) | payer OTHER, SELFPAY | PROVIDERS: Visit Provider Nurse Practitioner Adult Health | DX: E11.9 Type 2 diabetes mellitus without complications (principal); Z79.4 Long term (current) use of insulin | CPT/HCPCS: 82947; 99212 ==

== ENCOUNTER 2024-11-20 12:50 | Outpatient (AMB) | payer OTHER, SELFPAY ==
--- NOTE | 2024-11-20 08:07 | A.OFFVIS_ITS ---
Vital Signs 11/20/24 13:05 Height 5 ft 8 in Weight 293 lb 3.437 oz BMI 44.6 BP 130/82 Blood Pressure Location Rt brachial Position Sitting Pulse 96 Pulse Source Pulse Oximeter Pulse Oximetry (%) 987 H Oxygen Delivery Method Room Air Intake Visit Reasons: T2DM Intake Note: Patient presents today for a follow-up on Type 2 Diabetes Mellitus: Last Diabetic eye exam was on: DUE Last Podiatry exam was on: Patient does not see a Workforce Specialist Most recent HbA1c: 9.3%, 10/17/2024 Random Glucose- 232 mg/dL, Today Network Professional Required: No Accompanied by: Self / Same As Patient Allergies metformin Adverse Reaction (Intermediate, Verified 11/20/24 13:08) Nausea HPI Comments Details: 39 YO female who is seen in f/u for type 2 diabetes. She was seen in consult 07/09/2024 with an A1c of 12.3% and has been followed intensively since that time. Most recent A1c 08/16/2024 9.3%. Basal insulin was changed to Tresiba and her basal/ bolus dosing has been intensified with each visit to lower glucose average. At the time of her initial visit labs were ordered to determine the type of diabetes which have not yet been done (lab had difficulty drawing blood work) The patient has a history of opioid use disorder on methadone, abscess of the buttocks requiring hospitalization 2023, osteomyelitis and cellulitis of the right foot requiring hospitalization in July 2024 status post 6 weeks antibiotic therapy and recently seen by I and D 09/10/2024 with no additional follow-up needed unless recurrence. Foot ulcer has healed and she is no longer going to the wound center however has been instructed to return if the area opens op. She has additional prior history of uncontrolled DM,gastroparesis, obesity, PCOS, opioid use disorder, history of nausea. During her hospital stay she was seen by vascular and circulation to the right leg was widely patent without intervention needed. She has an upcoming appointment with Podiatry. Her insurance did not cover urea per dry skin on the feet. She is not using street drugs. She has not had a primary care provider in quite some time and had been getting her medication through the ER. She has an appointment with a new PCP in March. She does see a counselor at the addiction clinic. Initially diagnosed with T2DM at age 25 y.o. Was initially started on treatment with diet and was able to bring her numbers down with 50 pound weight loss. metformin caused nausea Current regime: Tresiba 46 units Lispro tid before meals 80-100 4 units eat first 101-150 14 units 151-200 18 units 201-250 22 units 251-300 26 units and follow dka protocol 301-350 30 units and follow dka protocol over 350 32 units and follow dka protocol Freestyle fabiano sensor 3 average glucose: 225 14 day continuous glucose sensor report reviewed No significant lows on sensor, she does report 1 mild low to 70 when she ate less, readings are the best in the evening 18:00 runs 169-182 Reports low sugars none recent. Treats lows with glucose Family history of T2DM in []. No retinopathy: Has eyes checked yearly, last eye exam scheduled for 09/12/24 Has neuropathy some shooting pain better on cymbalta does not see podiatry, referred several visits ago, urea prescribed for dry skin and has capcasin cream urea not covered No known nephropathy, on andrew-i microalbumin 15.0 09/18/24 08/17/2024 eGFR>60 Not on statin no lipid profile in EHR Has been ordered Denies CAD. Denies chest pain, dyspnea or symptoms of claudication [place] her depression is improving she is using trazodone p.r.n.. Works for [employer] 4-6 hours per day Will be applying for disability Diet: break yogurt or muffin top lunch leftovers dinner chick sand salad some pizza at night eats: poptarts cheese sticks fruit No recent diabetes education. [facility] Medical History Neuropathy History of open wound of lower extremity Opioid use disorder Hypertension Sepsis Depression PCOS (polycystic ovarian syndrome) Rash Polysubstance (excluding opioids) dependence, daily use Methadone maintenance therapy patient Anxiety and depression Diabetes Surgical History Hx of removal of cyst Family History Father No problems noted. Mother Hx of diabetes mellitus Sister Heart disease Social History Household Members: Children Household Members Other:: daughter Housing: Apartment Do you presently have visiting nurse or other home services: No Alcohol intake: current Alcohol intake frequency: does not drink Patient Tobacco Use Status: Never used Tobacco Tobacco use type: Cigarette Cigarette Packs Per Day: 3 Cigarettes Per Day: 60.0 Years Smoked: 2 e-Cigarette/Vaping Use: Never Used Substance Use Type: Marijuana Advance Directives Date on File: 01/11/22 service: No Current occupational status: unemployed Physical Exam Const Other: Absence of Cushingoid features. Absence of acromegalic features. Heart S1 S2, Reg R/R. No M/R G. Skin exam reveals absence of vitiligo or acanthosis nigricans. No edema Assessment & Plan Assessment & Plan (1) Diabetes: Code(s): E11.9 - Type 2 diabetes mellitus without complications Category: Medical Plan: 39-year-old diabetic (awaiting confirmation of type blood work ordered) with a history of foot ulcer with patent circulation, neuropathy and previous poor compliance. Tresiba 52 units Lispro tid before meals 80-100 4 units eat first 101-150 16 units 151-200 20 units 201-250 22 units 251-300 26 units and follow dka protocol 301-350 30 units and follow dka protocol over 350 32 units and follow dka protocol If her average is not less than 180 in the next 3 days she will increase all aspects of this scale by 4 units with the exception of the 80-100. She was also advised that she could call if she needed adjustment between visits The patient had an opportunity to ask questions regarding treatment plan. The patient expressed understanding and agreement with the above treatment plan. The patient is aware they should contact our office by phone for worsening glucose readings or for any low blood sugars which may warrant a change in diabetes medication. Compliance is encouraged with medications and any followup testing/consults which may have been ordered. Medications: Changed From insulin lispro (Admelog SoloStar U-100 Insulin lispro) 80-100 4 units 101-150 14 units 151-200 18 units 201-250 22 units 251-300 26 units 301-350 30 units over 350 32 units over 250 check ketones subcutaneously use as directed; 30 days 21 mL 11RF MDD 66 To insulin lispro (Admelog SoloStar U-100 Insulin lispro) 80-100 4 units 101- 150 16 units 151-200 20 units 201-250 24 units 251-300 28 units 301-350 32 units over 350 34 units over 250 check ketones subcutaneously use as directed; 30 days 21 mL 11RF MDD 102 From insulin degludec (Tresiba FlexTouch U-200 insulin) 34 units (0.17 mL) subcut DAILY 30 days 5.1 mL 3RF To insulin degludec (Tresiba FlexTouch U-200 insulin) 52 units (0.26 mL) subcut DAILY 30 days 9 mL 3RF Refilled duloxetine (Cymbalta) 30 mg PO DAILY 90 days 90 caps 0RF trazodone 50 mg PO DAILY 30 days 30 tabs 1RF Discontinued insulin syringe-needle U-100 (BD Insulin Syringe Ultra-Fine) Discontinued Reason: No Longer Medically Relevant daily 100 ea 1RF Patient Instructions: Take 15 carb carbohydrate grams to treat a low sugar (3-4 glucose tablets, half a glass of juice or 15 carbohydrate grams of soft candy such as gummie snacks). Recheck your sugar in 15 minutes and re-treat again with 15 carbohydrate grams if low or still with symptoms. Do not drive a car or operate machinery if you do not know what your blood sugar is, if it is low or in excess of 300. The patient was counseled to achieve a target A1C of 7% (154 avg). Fasting blood sugars should be 90-130 in the morning and less than 180 two hours after meals. Reviewed the relationship between poor diabetic control and the development of complications. Check your feet daily looking for any signs of infection, drainage, redness, ulceration and seek medical attention if this occurs. Break in shoes gradually and do not wear open-toed shoes or walk stocking footed or barefooted. Coding Level of Care Code Est Pt Level 3 (44445) Complex EM visit Add On G2211 Diagnoses Diabetes E11.9 Time Spent (min) 20
[2024-11-20 13:05] VITALS: BP 130/82; PULSE 96; O2SAT 987; BMI 44.6
[2024-11-20 13:20] LABS: Glucose, Whole Blood 232 mg/dL (60-115)
== END 2024-11-20 13:29 | disposition home or self-care (01) ==
LOC: HO.ENCR 12:51
PROVIDERS: Visit Provider Nurse Practitioner Adult Health
DX: E11.9 Type 2 diabetes mellitus without complications (principal)
CPT/HCPCS: 99213; G2211

== ENCOUNTER → 2024-11-20 12:50 | Outpatient (BNVA) | payer OTHER, SELFPAY | PROVIDERS: Visit Provider Nurse Practitioner Adult Health | DX: E11.9 Type 2 diabetes mellitus without complications (principal); E66.9 Obesity, unspecified; E28.2 Polycystic ovarian syndrome; Z68.41 Body mass index [BMI] 40.0-44.9, adult; Z86.31 Personal history of diabetic foot ulcer | CPT/HCPCS: 82947; 99212 ==

== ENCOUNTER 2024-12-11 12:11 | Outpatient (AMB) | payer OTHER, SELFPAY ==
--- NOTE | 2024-12-11 08:33 | A.OFFVIS_ITS ---
Vital Signs 12/11/24 12:32 Height 5 ft 8 in Weight 297 lb 9.985 oz BMI 45.2 BP 114/78 Blood Pressure Location Rt brachial Position Sitting Pulse 92 Pulse Source Pulse Oximeter Pulse Oximetry (%) 99 Oxygen Delivery Method Room Air Intake Visit Reasons: T2DM Intake Note: Patient presents today for a follow-up on Type 2 Diabetes Mellitus: Last Diabetic eye exam was on: OVER DUE Last Podiatry exam was on: Patient does not see a Bottling Line Attendant Most recent HbA1c: 9.3%, 10/17/2024 Random Glucose- 229 mg/dL, Today Winding Inspector Required: No Accompanied by: Self / Same As Patient Allergies metformin Adverse Reaction (Intermediate, Verified 12/11/24 12:33) Nausea HPI Comments Details: 39 YO female who is seen in f/u for type 2 diabetes. She was seen in consult 07/09/2024 with an A1c of 12.3% and has been followed intensively since that time. Most recent A1c 10/17/2023 9.3%. Basal insulin was changed to Tresiba and her basal/ bolus dosing has been intensified with each visit to lower glucose average. At the time of her initial visit labs were ordered to determine the type of diabetes which have not yet been done (lab had difficulty drawing blood work). She will attempt to have these done again. The patient has a history of opioid use disorder on methadone, abscess of the buttocks requiring hospitalization 2023, osteomyelitis and cellulitis of the right foot requiring hospitalization in July 2024 status post 6 weeks antibiotic therapy and recently seen by I and D 09/10/2024 with no additional follow-up needed unless recurrence. Foot ulcer has healed and she is no longer going to the wound center however has been instructed to return if the area opens op. She has additional prior history of uncontrolled DM,gastroparesis, obesity, PCOS, opioid use disorder, history of nausea. During her hospital stay she was seen by vascular and circulation to the right leg was widely patent without intervention needed. She is now followed by Dr. Garcia and long med 0 and she will be seen by him every 3 months. She is not using street drugs. She continues weekly follow-up with [facility] in [place] daily and once weekly for clinical counseling. She has not had a primary care provider in quite some time and had been getting her medication through the ER. She a history of nausea which is intermittent. She does not believe it was related to higher sugars but she is not certain. It has gotten slightly better since numbers have been in better control. She denies GERD symptoms. Initially diagnosed with T2DM at age 25 y.o. Was initially started on treatment with diet and was able to bring her numbers down with 50 pound weight loss. metformin caused nausea Current DM meds: Tresiba 52 units Lispro tid before meals 80-100 4 units eat first 101-150 16 units 151-200 20 units 201-250 22 units 251-300 26 units and follow dka protocol 301-350 30 units and follow dka protocol over 350 32 units and follow dka protocol Freestyle fabiano sensor 3 average glucose: 209 14 day continuous glucose sensor report reviewed Glucose Management indicator 8.3 % Time CGM active [ ] % TIme in ranges: 25 % very high (above 250) 40 % high (181-250) 35 % in range (70-180] 0 % low (69-55) 0 % very low (below 54) Interpretation of CGMS: Overnight highs him some postprandial elevations. Reports low sugars none recent. Treats lows with glucose tabs Family history of T2DM in []. 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 Denies chest pain, dyspnea or symptoms of claudication [place] her depression is improving she is using trazodone p.r.n.. Works for [employer] 4-6 hours per day Will be applying for disability Diet: break yogurt or muffin top lunch leftovers dinner chick sand salad some pizza at night eats: poptarts cheese sticks fruit Recently seen by Elli Pizano RD who recommended: Work on reducing total carb per meal to 75 g or less following healthy plate method and 0-20 g as snack 1-2 /day if needed Include lean protein foods (cottage cheese, eggs,poultry, tofu, beans ) in your meal s Try as bedtime snack cottage cheese with applesauce practice mindful eating She has been working on this She has a history of PCOS: She has not had a period in at least several years in his planning to see net ui developer She did have excess facial hair in her teen early 20s some scalp loss. [facility] Medical History Neuropathy History of open wound of lower extremity Opioid use disorder Hypertension Sepsis Depression PCOS (polycystic ovarian syndrome) Rash Polysubstance (excluding opioids) dependence, daily use Methadone maintenance therapy patient Anxiety and depression Diabetes Surgical History Hx of removal of cyst Family History Father No problems noted. Mother Hx of diabetes mellitus Sister Heart disease Social History Household Members: Children Household Members Other:: daughter Housing: Apartment Do you presently have visiting nurse or other home services: No Alcohol intake: current Alcohol intake frequency: does not drink Patient Tobacco Use Status: Never used Tobacco Tobacco use type: Cigarette Cigarette Packs Per Day: 3 Cigarettes Per Day: 60.0 Years Smoked: 2 e-Cigarette/Vaping Use: Never Used Substance Use Type: Marijuana Advance Directives Date on File: 01/11/22 service: No Current occupational status: unemployed Physical Exam Vital Signs: Last Vital Signs Pulse 92 12/11/24 12:32 BP 114/78 12/11/24 12:32 Pulse Ox 99 12/11/24 12:32 Oxygen Delivery Method Room Air 12/11/24 12:32 BMI result Body Mass Index 45.2 Const Other: Neck exam reveals nl size thyroid about 15 gms. No thyroid nodules palpable. No carotid bruits present. Lungs CTA. Heart S1 S2, Reg R/R. No M/R G. Skin exam reveals absence of vitiligo or acanthosis nigricans. Has abdominal straie.No edema foot exam deferred just seen by podiatry Results Reviewed Results Reviewed: Laboratory Last Values Glucose (Clinic) 229 mg/dL (60-115) H 12/11/24 12:38 Assessment & Plan Assessment & Plan (1) Diabetes: Code(s): E11.9 - Type 2 diabetes mellitus without complications Category: Medical Plan: 39-year-old diabetic (awaiting confirmation of type blood work ordered) with a history of foot ulcer with patent circulation, neuropathy and previous poor compliance. She is now taking all of her insulin regularly in his recently met with the Elli Pizano RD. 39-year-old diabetic (awaiting confirmation of type blood work ordered) with a history of foot ulcer with patent circulation, neuropathy and previous poor com pliance. Tresiba 62 units Lispro tid before meals 80-100 6 units 101-150 18 units 151-200 22 units 201-250 24 units 251-300 28 units and follow dka protocol 301-350 30 units and follow dka protocol over 350 32 units and follow dka protocol Initiate Ozempic 0.25 Side effects of GLP-1 agonist were reviewed: Nausea, vomiting, diarrhea, headache, dehydration or low blood sugar. Rare acute kidney injury which can result from dehydration. Pancreatitis and gallstones. Contraindicated in MEN or family history of thyroid medullary cancer. Will initiate very conservatively has she does have gastroparesis, If any increase in symptoms kar stop. Any severe vomiting -> ER Can consider metformin Has abd straie she will have 12mn salivary cortisol and will also check igf-1 as she does have a prominent brow The patient had an opportunity to ask questions regarding treatment plan. The patient expressed understanding and agreement with the above treatment plan. She will continue f/u with podiatry. The patient is aware they should contact our office by phone for worsening glucose readings or for any low blood sugars which may warrant a change in diabetes medication. Compliance is encouraged with medications and any followup testing/consults which may have been ordered. If her average is not less than 180 in the next 3 days she will increase all aspects of this scale by 4 units with the exception of the 80-100. She was also advised that she could call if she needed adjustment between visits The patient had an opportunity to ask questions regarding treatment plan. The patient expressed understanding and agreement with the above treatment plan. The patient is aware they should contact our office by phone for worsening glucose readings or for any low blood sugars which may warrant a change in diabetes medication. Compliance is encouraged with medications and any followup testing/consults which may have been ordered. 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 AMB HCG Urine Test Today N91.2 - Amenorrhea, unspecified Medications: New semaglutide (Ozempic) for 4 weeks 0.25 mg (0.368 mL) subcut QWEEK 28 days 2 mL 11RF Changed From insulin degludec (Tresiba FlexTouch U-200 insulin) 52 units (0.26 mL) subcut DAILY 30 days 9 mL 3RF To insulin degludec (Tresiba FlexTouch U-200 insulin) 62 units (0.31 mL) subcut DAILY 30 days 12 mL 3RF From insulin lispro (Admelog SoloStar U-100 Insulin lispro) 80-100 4 units 10 1-150 16 units 151-200 20 units 201-250 24 units 251-300 28 units 301-350 32 units over 350 34 units over 250 check ketones subcutaneously 4 times a day; 30 days 30 mL 11RF MDD 130 To insulin lispro (Admelog SoloStar U-100 Insulin lispro) 80-100 6 units 101- 150 18 units 151-200 22 units 201-250 24 units 251-300 28 units 301-350 30 units over 350 32 units over 300 check ketones subcutaneously 4 times a day; 30 days 30 mL 11RF MDD 130 Refilled insulin lispro (Admelog SoloStar U-100 Insulin lispro) 80-100 6 units 101-150 18 units 151-200 22 units 201-250 24 units 251-300 28 units 301-350 30 units over 350 32 units over 300 check ketones subcutaneously 4 times a day; 30 days 30 mL 11RF MDD 130 Coding Level of Care Code Est Pt Level 4 (77987) Complex EM visit Add On G2211 Diagnoses Diabetes E11.9 Acromegaly E22.0 Amenorrhea N91.2 Time Spent (min) 30 Comment Time spent reviewing labs/provider notes, face to face, chart doc
[2024-12-11 12:32] VITALS: BP 114/78; PULSE 92; O2SAT 99; BMI 45.2
[2024-12-11 12:43] LABS: Glucose, Whole Blood 229 mg/dL (60-115)
== END 2024-12-11 13:04 | disposition home or self-care (01) ==
LOC: HO.ENCR 12:12
PROVIDERS: Visit Provider Nurse Practitioner Adult Health
DX: E11.9 Type 2 diabetes mellitus without complications (principal); E22.0 Acromegaly and pituitary gigantism; N91.2 Amenorrhea, unspecified
CPT/HCPCS: 99214; G2211

== ENCOUNTER → 2024-12-11 12:11 | Outpatient (BNVA) | payer OTHER, SELFPAY | PROVIDERS: Visit Provider Nurse Practitioner Adult Health | DX: E11.9 Type 2 diabetes mellitus without complications (principal); E22.0 Acromegaly and pituitary gigantism; N91.2 Amenorrhea, unspecified; Z79.4 Long term (current) use of insulin | CPT/HCPCS: 82947; 99212 ==

== ENCOUNTER 2024-12-16 12:11 | Outpatient (AMB) | payer OTHER, SELFPAY ==
[2024-12-16 12:32] VITALS: BMI 44.7
--- NOTE | 2024-12-16 12:32 | A.OFFVIS_ITS ---
VS Expanded 12/16/24 12:32 Height 5 ft 8 in Weight 293 lb 14.019 oz BMI 44.7 Intake Visit Reasons: DM Allergies metformin Adverse Reaction (Intermediate, Verified 12/11/24 12:33) Nausea Nutrition Presentation Details: Pt presents for MNT f/u for T2DM Pt reports challenges with skipping meals leading to inc appetite later in the day BS Monitoring Most Recent Diabetes Results: No Data to Display PFSH Medical History Neuropathy History of open wound of lower extremity Opioid use disorder Hypertension Sepsis Depression PCOS (polycystic ovarian syndrome) Rash Polysubstance (excluding opioids) dependence, daily use Methadone maintenance therapy patient Anxiety and depression Diabetes Surgical History Hx of removal of cyst Family History Father No problems noted. Mother Hx of diabetes mellitus Sister Heart disease Social History Household Members: Children Household Members Other:: daughter Housing: Apartment Do you presently have visiting nurse or other home services: No Alcohol intake: current Alcohol intake frequency: does not drink Patient Tobacco Use Status: Never used Tobacco Tobacco use type: Cigarette Cigarette Packs Per Day: 3 Cigarettes Per Day: 60.0 Years Smoked: 2 e-Cigarette/Vaping Use: Never Used Substance Use Type: Marijuana Advance Directives Date on File: 01/11/22 service: No Current occupational status: unemployed Assessment & Plan Assessment & Plan (1) Diabetes: Code(s): E11.9 - Type 2 diabetes mellitus without complications Category: Medical Plan: Wt: 131 Kg ( 11/25 ), 133 kg (12/26) Est kcal needs as per MSJ: 2400 (40% carb, 30% protein/fat) Est fluid needs as per 25-30 ml/d: 4000 Est prot per day as per 1 g/kg bw: 131 Recommend fiber intake : 8-10 g per day and gradually increase to 25-28 g per day for women and 35-38 g for men or as tolerated Recommend sodium intake per day : l less than 2300 mg Educated patient on: ( R = reviewed V = verbalizes understanding N/R = needs review N/A = not applicable * Food sources of carbohydrate, adequate serving sizes and its role in various health conditions: R V N/R * Differences between complex carbohydrates a simple carbohydrates, role of fiber in diet: R * Lean protein sources of foods: R V NR * Differences between types of fats and role in diet (mono on saturated fat fatty acids, saturated fatty acids, trans fats): R V N/R * Food sources of sodium in salt and healthy modifications for heart health in kidney health: R V R/V * Vitamins and minerals: R V N/R * Healthy plate method concept: R V N/R * Physical activity: Benefits a precaution: R V N/R * Hypoglycemia protocol (rule of 15): R V N/R * Dietary prevention of Hyperglycemia: R V R/V Patient Instructions: Have a fruit with yogurt as bedtime (30 g carb with 15 g protein - option) consider having meal replacement instead of skipping a meal at lunch to help your watch on portion sizes in the evening Coding Level of Care Code Nutr Indiv Subseq (24637) Diagnoses Diabetes E11.9 Time Spent (min) 24
== END 2024-12-16 12:58 | disposition home or self-care (01) ==
LOC: HO.ENCR 12:11
PROVIDERS: Visit Provider Dietitian, Registered
DX: E11.9 Type 2 diabetes mellitus without complications (principal)

== ENCOUNTER → 2024-12-16 12:11 | Outpatient (BNVA) | payer OTHER, SELFPAY | PROVIDERS: Visit Provider Dietitian, Registered | DX: E11.9 Type 2 diabetes mellitus without complications (principal); Z71.3 Dietary counseling and surveillance | CPT/HCPCS: 97803 ==

== ENCOUNTER 2025-01-01 12:49 | Outpatient (AMB) | payer OTHER, SELFPAY ==
--- NOTE | 2025-01-01 12:56 | A.OFFVIS_ITS ---
Intake Intake Visit Reasons: 60 min Continuity Coordinator Required: No Accompanied by: Self / Same As Patient Allergies metformin Adverse Reaction (Intermediate, Verified 12/11/24 12:33) Nausea HPI Comprehensive Diabetes Asmnt Most Recent Diabetes Results: No Data to Display [facility] Medical History Neuropathy History of open wound of lower extremity Opioid use disorder Hypertension Sepsis Depression PCOS (polycystic ovarian syndrome) Rash Polysubstance (excluding opioids) dependence, daily use Methadone maintenance therapy patient Anxiety and depression Diabetes Surgical History Hx of removal of cyst Family History Father No problems noted. Mother Hx of diabetes mellitus Sister Heart disease Social History Household Members: Children Household Members Other:: daughter Housing: Apartment Do you presently have visiting nurse or other home services: No Alcohol intake: current Alcohol intake frequency: does not drink Patient Tobacco Use Status: Never used Tobacco Tobacco use type: Cigarette Cigarette Packs Per Day: 3 Cigarettes Per Day: 60.0 Years Smoked: 2 e-Cigarette/Vaping Use: Never Used Substance Use Type: Marijuana Advance Directives Date on File: 01/11/22 service: No Current occupational status: unemployed Assessment & Plan Assessment & Plan (1) Diabetes: Code(s): E11.9 - Type 2 diabetes mellitus without complications Plan: Diabetes self-management education and support participation record Assessment/scale: 1= needs instructed? 2= needs review? 3= comprehend keep point? 4= demonstrates understanding/ competent? NC= Not Covered Topics Learning Objective: Initial visit Initial or post srvc Initial or post srvc Initial or post srvc Initial or post srvc Initial or post srvc Post srvc Comments Pre Edu-assessment/plan Outcome or reassess Outcome or reassess Outcome or reassess Outcome or reassess Outcome or reassess Outcome or reassess Diabetes pathophysiology 1 3 Healthy eating 2 3 Being active 2 3 Taking medication 1 3 Monitoring glucose 1 3 Acute complication 2 3 Chronic complicated 2 Lifestyle and healthy coping 1 C Diabetes distress in support 1 ?Diabetes pathophysiology: ?Defined diabetes med identify own type of diabetes; list 3 options for treating diabetes Healthy eating: ?Described effect of type, amount and ?timing of food on blood glucose; list 3 methods for planning meal Being active: ?State effect of exercise on blood glucose level Taking medication: ?State effect of diabetes medications on diabetes; name diabetes medications taking, action and side effects Monitoring glucose: ?Identify recommended blood glucose targets and personal target Acute complication: ?List symptoms and treatment of hyper and hypoglycemia, DKA, sick day guidelines and guidelines for severe weather or situations of crisis and diabetes supply manage Chronic complication: ?To find the relationship of blood glucose levels to long- term complications of diabetes in screening and preventative measures Lifestyle and healthy coping: ?Described lifestyle and healthy coping strategies to rule out diabetes self-management Diabetes to stress and support: ?Recognize Diabetes to stress and be able to identified support options Patient questions/concerns, patient's last A1c on 10/17/2024 9.3% Patient uses [employer] [place] 3 review glucose numbers Average glucose for past 14 days 197 mg/dL Above target 59% At target 41% Below target 0% Suggested to patient she increase lispro sliding scale 101-150 16 units 151-200 20 units 201-250 22 units 251-300 26 units and follow dka protocol 301-350 30 units and follow dka protocol over 350 32 units and follow dka protocol Learning objectives: The patient was provided with verbal and written education on the following topics as outlined below. The patient met all learning objectives and was able to verbalize understanding and provide teach back of education topics discussed . The patient was provided with the opportunity to ask questions and all questions were answered. Topics covered in today?s session included: Medications (If applicable) * Name of medication? * Dosing/administration instructions? * Mechanism of action? * Potential side effects? * Potential adverse reaction and appropriate treatment? * Review onset, peak, duration Assess for concerns re: insurance coverage, cost, barriers to compliance Insulin/Injectables (If applicable) * Storage/care of insulin?? * Injection sites? * Site rotation? * Onset, peak, duration * Drawing up insulin? * Injecting insulin/other injectables? * Sharps disposal Continuous blood glucose monitoring (if applicable) Hypoglycemia and Hyperglycemia * Signs and symptoms? * Causes?? * Treatment? * Preventing hypoglycemia? * When to seek medical attention Target Goals: * Blood glucose targets and how you feel when your blood glucose is in and out of your target ranges. * Monitoring and knowing your A1C. * What can make blood glucose go up and down and preventing high and low blood glucose. * Review of blood sugar targets in expected goal range and outside of expected goal range. * Problem solving and preventing hyper/hypoglycemia. * Sick day management of diabetes. * Using blood sugar results in decision making process in managing diabetes. ?Patient was receptive to information provided and participated in the discussion. Asked?appropriate questions and demonstrated good understanding of the topics discussed.? ? Educational Materials: The patient was provided with the following written educational materials: Target Goal handout Smart Goal Assessment:? Patient will reduce portion of carbohydrates at meals and snacks before next visit Pt met goal 75% New Smart Goal: Patient will start Trulicity once a week as directed Patient Response to instructions: Comprehension of Instructions: good Readiness to make changes:? action How confident they feel about making changes:positive Portions of this note were created using voice recognition software, please excuse any words or phrases that may have been misinterpreted. Coding Level of Care Code Est Pt Level 1 (33982) Diagnoses Diabetes E11.9
== END 2025-01-01 13:31 | disposition home or self-care (01) ==
LOC: HO.ENCR 12:50
PROVIDERS: Visit Provider Registered Nurse Diabetes Educator
DX: E11.9 Type 2 diabetes mellitus without complications (principal)

== ENCOUNTER → 2025-01-01 12:49 | Outpatient (BNVA) | payer OTHER, SELFPAY | PROVIDERS: Visit Provider Registered Nurse Diabetes Educator | DX: E11.9 Type 2 diabetes mellitus without complications (principal) | CPT/HCPCS: 99211 ==

== ENCOUNTER 2025-01-02 00:49 | Emergency (ER) | payer OTHER, SELFPAY ==
[2025-01-02] VITALS (8 sets, daily range): BP systolic 148–188; BP diastolic 76–100; PULSE 89–116; RESP 16–18; TEMP 36.1–37.2; O2SAT 96–100; BMI 42.6
[2025-01-02 01:42] LABS: MANUAL DIFF FLAG NO
[2025-01-02 01:44] LABS: Basophils Absolute Auto 0.1 X10*3/uL (0.0-0.2); Basophils Percent Auto 0.3 % (0-2); Eosinophils Absolute Auto 0.1 X10*3/uL (0.0-0.4); Eosinophils Percent Auto 0.3 % (0-4); Hematocrit 36.8 % (37.0-47.0); Hemoglobin 12.3 g/dl (12.0-16.0); Imm Gran Pct Auto 0.6 % (0.0-0.4); Lymphocytes Absolute Auto 2.3 X10*3/uL (1.2-4.9); Lymphocytes Percent Auto 14.7 % (20-40); Mean Corpuscular HGB Conc 33.4 g/dl (31.0-35.0); Mean Corpuscular Volume 80.9 fL (80.0-98.0); Mean Platelet Volume 8.7 fL (9.4-12.3); Monocytes Absolute Auto 0.7 X10*3/uL (0.1-1.2); Monocytes Percent Auto 4.2 % (2-11); Neutrophils Absolute Auto 12.4 x10*3/uL (2.0-8.3); Neutrophils Percent Auto 79.9 % (45-73); Platelet Count 344 X10*3/uL (160-400); Red Blood Count 4.55 X10*6/uL (4.20-5.50); Red Cell Distribution Width 13.4 % (11.0-16.0); White Blood Count 15.5 X10*3/uL (4.8-10.8)
--- NOTE | 2025-01-02 01:44 | MHC.EDTECH ---
Patient was biba ,vitals taken ,blood drawn and rsv/covid swab collected and sent to lab ,warm blanket given .Call schuler within Pt reach .
[2025-01-02 02:05] LABS: Alanine Aminotransferase 18 U/L (0-31); Albumin Level 3.8 g/dL (3.5-5.0); Anion Gap 15 (12-20); Aspartate Amino Transferase 21 U/L (5-31); Bilirubin Total 0.6 mg/dL (0.0-1.0); Blood Urea Nitrogen 11 mg/dL (9-16); Calcium 9.3 mg/dL (8.4-10.2); Carbon Dioxide 25 mmol/L (22-29); Chloride 102 mmol/L (96-108); Creatinine Clr Calc Pharmacy 141.4; Estimated Glomerular Filt Rate > 60; Glucose Random 228 mg/dL (60-115); Lipase 24 U/L (8-78); Potassium 3.8 mmol/L (3.3-5.1); Sodium 138 mmol/L (135-145); Total Protein 8.1 g/dL (6.5-8.0)
--- NOTE | 2025-01-02 02:16 | PC.NURSE ---
pt continues to wait for eval by ed provider. no vomiting noted since arrival. resting comfortably at this time, call schuler within reach.
[2025-01-02 02:19] LABS: Influenza A PCR NEGATIVE (Negative); Influenza B PCR NEGATIVE (Negative); Resp Syncy Virus RNA Qual PCR NEGATIVE (Negative); SARS COV2 PCR INHOUSE NEGATIVE (Negative)
[2025-01-02 02:23] LABS: Alkaline Phosphatase 103 U/L (39-117)
--- NOTE | 2025-01-02 03:34 | MHC.EDTECH ---
0200 rounding done ,vitals taken ,Patient vomiting ,RN aware .Call schuler within Pt reach .
--- NOTE | 2025-01-02 03:35 | PC.NURSE ---
pt had an episode of vomiting, MD aware. pt difficult stick for IV.
--- NOTE | 2025-01-02 03:40 | ED_ITS ---
HPI - Nausea/Vomiting/Diarrhea General Chief complaint: Nausea/Vomiting/Diarrhea Stated complaint: hx of Cyclic vomiting Syndrome, v since afternoon Time Seen by Provider: 01/02/25 03:31 Source: patient Mode of arrival: ambulatory Limitations: no limitations History of Present Illness ED Provider: HPI Narrative: Patient's history of cyclical vomiting syndrome diabetes complaining of nausea vomiting since afternoon today vomited about 6 times taking her insulin smokes marijuana everyday denies any diarrhea Related Data Home Medications ?Medication ?Instructions ?Recorded ?Confirmed methadone 10 mg/mL oral concentrate 120 mg PO DAILY 07/03/24 10/17/24 Previous Rx's ?Medication ?Instructions ?Recorded lancets 28 gauge (FreeStyle #100 ea 09/11/24 Lancets) FreeStyle [place] 3 [place] #1 ea 10/02/24 (blood-glucose,reconciliation coordinator,cont) acetone (urine) test (Ketone Urine #25 ea 10/17/24 Test strips) capsaicin 0.025 % topical cream 1 appl topical TID 30 days #60 10/17/24 grams pen needle, diabetic 32 gauge x #200 ea 10/17/24 (BD Edel 2nd Gen Pen Needle) urea 20 % topical cream 1 appl topical BID PRN apply to 10/17/24 dry skin on feet 30 days #85 grams blood-glucose sensor (FreeStyle #6 ea 10/24/24 Franklin 3 Plus Sensor device) lisinopril 20 mg tablet 20 mg PO DAILY 90 days #90 tabs 11/19/24 duloxetine 30 mg capsule,delayed 30 mg PO DAILY 90 days #90 caps 11/20/24 release (Cymbalta) trazodone 50 mg tablet 50 mg PO DAILY 30 days #30 tabs 11/20/24 amlodipine 5 mg tablet 5 mg PO DAILY #90 tabs 12/01/24 dulaglutide 0.75 mg/0.5 mL 0.75 mg (0.5 mL) subcut QWEEK 28 12/11/24 subcutaneous pen injector days #2 mL (Trulicity) insulin degludec 200 unit/mL (3 62 unit (0.31 mL) subcut DAILY 30 12/11/24 mL) subcutaneous pen (Tresiba days #12 mL FlexTouch U-200 insulin) insulin lispro 100 unit/mL See Rx Instructions subcut QID 30 12/11/24 subcutaneous pen (Admelog SoloStar days #30 mL U-100 Insulin lispro) blood sugar diagnostic (FreeStyle #100 ea 01/01/25 Lite Strips) ondansetron 4 mg disintegrating 4 mg PO Q6-8H PRN nausea and 01/02/25 tablet vomiting #10 tabs Allergies Allergy/AdvReac Type Severity Reaction Status Date / Time metformin AdvReac Intermediate Nausea Verified 01/02/25 01:02 Review of Systems 2 Review of Systems: Yes all other systems are reviewed and are negative [facility] Past Medical History Medical History Neuropathy History of open wound of lower extremity Opioid use disorder Hypertension Sepsis Depression PCOS (polycystic ovarian syndrome) Rash Polysubstance (excluding opioids) dependence, daily use Methadone maintenance therapy patient Anxiety and depression Diabetes Surgical History Hx of removal of cyst Family History Family History Father No problems noted. Mother Hx of diabetes mellitus Sister Heart disease Social History Social History Household Members: Children Household Members Other:: daughter Housing: Apartment Do you presently have visiting nurse or other home services: No Alcohol intake: current Alcohol intake frequency: does not drink Patient Tobacco Use Status: Never used Tobacco Tobacco use type: Cigarette Cigarette Packs Per Day: 3 Cigarettes Per Day: 60.0 Years Smoked: 2 e-Cigarette/Vaping Use: Never Used Substance Use Type: Marijuana Advance Directives: Yes Advance Directives on File: Yes Advance Directives Date on File: 01/11/22 Do you have a plan to hurt others: No Plan service: No Current occupational status: unemployed Physical Exam 2 Vital Signs: Vital Signs: Last Vital Signs Temp 98.9 F 01/02/25 06:14 Pulse 98 01/02/25 06:14 Resp 16 01/02/25 06:14 BP 174/100 H 01/02/25 06:14 Pulse Ox 96 01/02/25 06:14 O2 Del Method Room Air 01/02/25 06:14 BMI result Body Mass Index 42.6 Appearance: Alert. Oriented X3. No acute distress. Eyes: PERRLA, No Nystagmus ENT: Pharynx normal. Oral Mucosa Dry Neck: Normal inspection. Neck supple. CVS: Normal heart rate and rhythm. Pulses normal. Respiratory: No respiratory distress. Equal air entry bilateral, no wheezing/rales/rhonchi Abdomen: Soft and diffuse tenderness. Bowel sounds are present, no mass palpable, no CVA tenderness Skin: Skin warm and dry. Normal skin color. Normal skin turgor. Extremities: No lower extremity edema. No calf tenderness Neuro: Oriented X 3. No motor deficit. No sensory deficit.No cerebellar signs , cranial nerves II-XII intact Medications Administered Discontinued Medications Generic Name Dose Route Start Last Admin Trade Name Freq PRN Reason Stop Dose Admin Droperidol 1.25 mg 01/02/25 05:55 01/02/25 06:15 Droperidol 5 Mg/2 Ml Vial IM 01/02/25 05:56 1.25 mg ONCE ONE Administration Midazolam HCl 2 mg 01/02/25 03:40 01/02/25 04:10 Midazolam Hcl 2 Mg/2 Ml Vial IM 01/02/25 03:41 2 mg ONCE ONE Administration Ondansetron HCl 4 mg 01/02/25 03:40 01/02/25 04:10 Ondansetron Odt 4 Mg Tab.Rapdis TRANSLINGU 01/02/25 03:41 4 mg ONCE ONE Administration Medical Decision Making Medical Decision Making [facility] Narrative: Patient's marijuana user diabetic in cyclic vomiting syndrome comes here for vomiting for last few hours labs are stable no signs of ketoacidosis labs are stable patient is taking p.o. fluids after droperidol will discharge patient home Lab Data [facility] Lab Attestation statement: I reviewed the patient's lab results. 01/02/25 01:34 01/02/25 01:34 Labs: Lab Results 01/02/25 01/02/25 01/02/25 Range/Units 01:30 01:34 04:21 WBC 15.5 H (4.8-10.8) X10*3/uL RBC 4.55 (4.20-5.50) X10*6/uL Hgb 12.3 (12.0-16.0) g/dl Hct 36.8 L (37.0-47.0) % MCV 80.9 (80.0-98.0) fL MCH 27.0 (27.0-33.0) pg MCHC 33.4 (31.0-35.0) g/dl RDW 13.4 (11.0-16.0) % Plt Count 344 (160-400) X10*3/uL MPV 8.7 L (9.4-12.3) fL Immature Gran % (Auto) 0.6 H (0.0-0.4) % Neut % (Auto) 79.9 H (45-73) % Lymph % (Auto) 14.7 L (20-40) % [place] % (Auto) 4.2 (2-11) % Eos % (Auto) 0.3 (0-4) % Baso % (Auto) 0.3 (0-2) % Lymph # (Auto) 2.3 (1.2-4.9) X10*3/uL [place] # (Auto) 0.7 (0.1-1.2) X10*3/uL Eos # (Auto) 0.1 (0.0-0.4) X10*3/uL Baso # (Auto) 0.1 (0.0-0.2) X10*3/uL Abs Immat Gran (auto) 0.10 H (0.00-0.03) X10*3/uL Absolute Neuts (auto) 12.4 H (2.0-8.3) x10*3/uL Absolute Nucleated RBC 0.000 (0.0-0.012) X10*3/uL Nucleated RBC % (auto) 0.0 (0.0-0.2) /100WBC Sodium 138 (135-145) mmol/L Potassium 3.8 (3.3-5.1) mmol/L Chloride 102 (96-108) mmol/L Carbon Dioxide 25 (22-29) mmol/L Anion Gap 15 (12-20) BUN 11 (9-16) mg/dL Creatinine 0.76 (0.5-1.4) mg/dL Estim Creat Clear Calc 141.4 Estimated GFR > 60 Random Glucose 228 H (60-115) mg/dL Calcium 9.3 (8.4-10.2) mg/dL Total Bilirubin 0.6 (0.0-1.0) mg/dL AST 21 (5-31) U/L ALT 18 (0-31) U/L Alkaline Phosphatase 103 (39-117) U/L Total Protein 8.1 H (6.5-8.0) g/dL Albumin 3.8 (3.5-5.0) g/dL Lipase 24 (8-78) U/L Urine Color Yellow Urine Appearance Cloudy Urine pH 6.0 (5.0-9.0) Ur Specific [place] 1.025 (1.005-1.025) Urine Protein 30 (1+) H (Neg-Trace) mg/dL Urine Glucose (UA) 500 H (Negative) mg/dL Urine Ketones 40 (Negative) mg/dL Urine Blood Moderate (2+) H (Negative) Urine Nitrite Negative (Negative) Ur Leukocyte Esterase Trace H (Negative) Urine RBC >20 H (0-2) /HPF Urine WBC 11-20 H (0-5) /HPF Ur Squamous Epith Cells 11-20 (0-2) /HPF Urine Bacteria 4+ (None Seen) Hyaline Casts 0-2 (0-2) /LPF Urine Test NEGATIVE (NEGATIVE) Influenza Type A (PCR) NEGATIVE (Negative) Influenza Type B (PCR) NEGATIVE (Negative) RSV RNA Qual (PCR) NEGATIVE (Negative) SARS-CoV-2 RNA (RT-PCR) NEGATIVE (Negative) Discharge Plan Discharge Clinical Impression: Cyclic vomiting syndrome Patient Disposition: Home, Self-Care Instructions: Cyclic Vomiting Syndrome (ED) Additional Instructions: Stops smoking marijuana Medicine for nausea as prescribed Follow up with your PCP Prescriptions: New ondansetron 4 mg tablet,disintegrating 4 mg PO Q6-8H PRN (Reason: nausea and vomiting) Qty: 10 0RF No Action methadone 10 mg/mL Concentrate 120 mg PO DAILY Rx Instructions: [facility] -[phone], LAST DOSE ON 07/01/24 @1129 PER EARNEST ADAMSN (DME) FreeStyle [place] 3 [place] [facility] [place] See Rx Instructions .ROUTE .MEDSUPPLY Qty: 1 0RF Rx Instructions: for use with glucose sensor lisinopril 20 mg tablet 20 mg PO DAILY 90 Days Qty: 90 1RF amlodipine 5 mg tablet 5 mg PO DAILY Qty: 90 1RF Trulicity 0.75 mg/0.5 mL pen injector 0.75 mg subcut QWEEK 28 Days Qty: 2 2RF (DME) FreeStyle Lite Strips Strip See Rx Instructions .Route Qty: 100 6RF Rx Instructions: As directed tests 3 X/day (DME) lancets [FreeStyle Lancets] 28 gauge misc See Rx Instructions .ROUTE .MEDSUPPLY Qty: 100 1RF Rx Instructions: 3 times per day insulin degludec [Tresiba FlexTouch U-200] 200 unit/mL (3 mL) insulin pen 62 unit subcut DAILY 30 Days Qty: 12 3RF insulin lispro [Admelog SoloStar U-100 Insulin] 100 unit/mL insulin pen See Rx Instructions subcut QID MDD 130 30 Days Qty: 30 11RF Rx Instructions: 80-100 6 units 101-150 18 units 151-200 22 units 201-250 24 units 251- 300 28 units 301-350 30 units over 350 32 units over 300 check ketones subcutaneously 4 times a day; (DME) Ketone Urine Test Strip See Rx Instructions .ROUTE .MEDSUPPLY Qty: 25 2RF Rx Instructions: prn qid glucose over 250, nausea, vomiting illness (DME) pen needle, diabetic [BD Edel 2nd Gen Pen Needle] 32 gauge x 5/32 needle See Rx Instructions .ROUTE .MEDSUPPLY Qty: 200 11RF Rx Instructions: qid capsaicin 0.025 % cream 1 appl topical TID 30 Days Qty: 60 3RF Rx Instructions: do not wash area for at least 30 min after application wash your hands after applying urea 20 % cream 1 appl topical BID PRN (Reason: apply to dry skin on feet) 30 Days Qty: 85 1RF (DME) FreeStyle Franklin 3 Plus Sensor Device See Rx Instructions .ROUTE .MEDSUPPLY Qty: 6 3RF Rx Instructions: every 15 days for continuous use duloxetine [Cymbalta] 30 mg capsule,delayed release(DR/EC) 30 mg PO DAILY 90 Days Qty: 90 0RF trazodone 50 mg tablet 50 mg PO DAILY 30 Days Qty: 30 1RF Print Language: Uzbek
[2025-01-02] MEDS: Midazolam HCl 2 MG/2 ML VIAL IM (04:10)
[2025-01-02] MEDS: Ondansetron ODT 4 MG TAB.RAPDIS TRANSLINGU (04:10)
--- NOTE | 2025-01-02 04:10 | PC.NURSE ---
medicated IM Versed given per mar, this medication is not a restraint and given IM as pt is difficult stick and IV not established. to treat sx. pt is in agreement with med IM administration. o2 monitoring in place. call schuler within reach.
--- NOTE | 2025-01-02 04:22 | MHC.EDTECH ---
Patient urine sample collected and sent to lab .
[2025-01-02 04:29] LABS: Appearance Urine Cloudy; Color Urine Yellow; Glucose Urine UA 500 mg/dL (Negative); Leukocyte Esterase Urine Trace (Negative); Nitrite Urine Negative (Negative); Specific Gravity - Urine 1.025 (1.005-1.025); UMIC TRIGGER UACC YES; Urine Blood Moderate (2+) (Negative); Urine Ketones 40 mg/dL (Negative); Urine Protein 30 (1+) mg/dL (Neg-Trace)
[2025-01-02 04:30] LABS: UPreg QC Valid YES; Urine Pregnancy NEGATIVE (NEGATIVE)
[2025-01-02 04:32] LABS: Bacteria Urine 4+ (None Seen); Hyaline Casts Urine 0-2 /LPF (0-2); RBC Urine >20 /HPF (0-2); UACC Culture Trigger YES
[2025-01-02] MEDS: droPERidol 5 MG/2 ML VIAL 1.25 MG IM (06:15)
--- NOTE | 2025-01-02 06:17 | PC.NURSE ---
pt had few sips of gingerale after many encouragement, tolerating, no vomiting. MD aware, given med per nov. aware of bp as well.
--- NOTE | 2025-01-02 07:18 | PC.NURSE ---
Pt vomited x 1 as this RN arrived. MD aware and plan is for IV meds.
--- NOTE | 2025-01-02 07:57 | PC.NURSE ---
unable to gain IV access. Another RN to attempt IV via US
--- NOTE | 2025-01-02 08:35 | PC.NURSE ---
unable to obtain access via US
[2025-01-02] MEDS: Prochlorperazine Edisylate 10 MG/2 ML VIAL IM (08:53)
[2025-01-02] MEDS: diphenhydrAMINE HCL 50 MG/ML VIAL IM (08:53)
--- NOTE | 2025-01-02 09:38 | PC.NURSE ---
Pt has not vomited since 7am. PO trial now. has been sleeping mostly.
--- NOTE | 2025-01-02 10:11 | MHC.EDTECH ---
vitals taken pt. does not want to wake up. states she still doesnt feel good.
== END 2025-01-02 10:44 | disposition home or self-care (01) ==
PROVIDERS: Emergency Provider Internal Medicine; PCP Internal Medicine
DX: R11.15 Cyclical vomiting syndrome unrelated to migraine (principal); R11.2 Nausea with vomiting, unspecified; E11.9 Type 2 diabetes mellitus without complications; I10 Essential (primary) hypertension; F11.90 Opioid use, unspecified, uncomplicated; Z79.899 Other long term (current) drug therapy; Z79.4 Long term (current) use of insulin; Z03.818 Encounter for observation for suspected exposure to other biological agents ruled out
CPT/HCPCS: 0241U; 80053; 81001; 81025; 83690; 85025; 87086; 96372; 99284; J0737; J1200; J1790; J2250

== ENCOUNTER 2025-01-04 13:43 | Inpatient (IN) | payer OTHER, SELFPAY ==
--- NOTE | 2025-01-04 | ECG_ITS ---
Test Reason : check QT Blood Pressure : */* mmHG Vent. Rate : 84 BPM Atrial Rate : 84 BPM P-R Int : 122 ms QRS Dur : 92 ms QT Int : 406 ms P-R-T Axes : 20 -14 29 degrees QTcB Int : 479 ms Normal sinus rhythm Minimal voltage criteria for LVH, may be normal variant ( Jackson product ) Borderline ECG When compared with ECG of 17-Aug-2024 10:54, No significant change was found Referred By: Yoon Guy Electronically Signed By: LASHANDA CHAVEZ
--- NOTE | ~2025-01-04 | CT_ITS ---
CLINICAL HISTORY: abd pain, vomiting CT abdomen and pelvis with contrast Comparison: CT/SR - CT ABDOMEN PELVIS W IV CON - 02/22/24 10:37 EDT Findings: Question small hiatal hernia. Hepatomegaly with steatosis. Likely focal fatty deposition along the falciform region of the liver. Distended gallbladder with likely layering sludge. No significant wall thickening or radiopaque gallstones. Left adrenal gland nodule redemonstrated measuring 2.4 cm with an average Hounsfield unit of 43, indeterminate. This may be further evaluated with biochemical assay and adrenal protocol imaging if indicated. No urolithiasis. Sigmoid and descending colonic mural thickening concerning for colitis. No bowel obstruction. Retroverted uterus. Colonic diverticulosis without diverticulitis. No evidence for appendicitis. Bilateral adnexal cysts Osteopenia. Right femoral CVC noted. IMPRESSION: Findings concerning for distal colitis. Additional findings as described. This document has been electronically signed by: Rock Muniz MD on 01/05/2025 03:21:51
[2025-01-04 14:12] VITALS: BP 155/106; BP 184/114; PULSE 106; PULSE 107; RESP 20; TEMP 37; O2SAT 96; O2SAT 99; BMI 42.6
--- NOTE | 2025-01-04 14:18 | ED.ABDPAIN ---
HPI - Abdominal Pain General Chief Complaint: Abdominal Pain Stated Complaint: VOMITING Time Seen by Provider: 01/04/25 16:14 Source: patient Mode of arrival: ambulatory Limitations: no limitations History of Present Illness ED Provider: DR. Palacios HPI narrative: This is a 39-year-old female with past medical history significant for insulin-dependent diabetes, gastroparesis, IV drug use (last use was 6 months ago) chronic left arm ulcer, hypertension, obesity, and PCOS presented to the ED for persistent nausea and vomiting since yesterday, mild abdominal soreness, patient was seen in the ED on 01/02 for similar symptoms patient did have any improvement. Had a bowel movement last night, passing flatus, never had intra-abdominal surgery in the past, no sick contacts, no recent travel, no exposure to bad food, no fever, chills, no source of infection. No CP, no SOB, no dysuria, no frequency urination. Related Data Home Medications ?Medication ?Instructions ?Recorded ?Confirmed methadone 10 mg/mL oral concentrate 120 mg PO DAILY 07/03/24 10/17/24 Previous Rx's ?Medication ?Instructions ?Recorded lancets 28 gauge (FreeStyle #100 ea 09/11/24 Lancets) FreeStyle [place] 3 [place] #1 ea 10/02/24 (blood-glucose,licensing services clerk,cont) acetone (urine) test (Ketone Urine #25 ea 10/17/24 Test strips) capsaicin 0.025 % topical cream 1 appl topical TID 30 days #60 10/17/24 grams pen needle, diabetic 32 gauge x #200 ea 10/17/24 (BD Edel 2nd Gen Pen Needle) urea 20 % topical cream 1 appl topical BID PRN apply to 10/17/24 dry skin on feet 30 days #85 grams blood-glucose sensor (FreeStyle #6 ea 10/24/24 Franklin 3 Plus Sensor device) lisinopril 20 mg tablet 20 mg PO DAILY 90 days #90 tabs 11/19/24 duloxetine 30 mg capsule,delayed 30 mg PO DAILY 90 days #90 caps 11/20/24 release (Cymbalta) trazodone 50 mg tablet 50 mg PO DAILY 30 days #30 tabs 11/20/24 amlodipine 5 mg tablet 5 mg PO DAILY #90 tabs 12/01/24 dulaglutide 0.75 mg/0.5 mL 0.75 mg (0.5 mL) subcut QWEEK 28 12/11/24 subcutaneous pen injector days #2 mL (Trulicity) insulin degludec 200 unit/mL (3 62 unit (0.31 mL) subcut DAILY 30 12/11/24 mL) subcutaneous pen (Tresiba days #12 mL FlexTouch U-200 insulin) insulin lispro 100 unit/mL See Rx Instructions subcut QID 30 12/11/24 subcutaneous pen (Admelog SoloStar days #30 mL U-100 Insulin lispro) blood sugar diagnostic (FreeStyle #100 ea 01/01/25 Lite Strips) ondansetron 4 mg disintegrating 4 mg PO Q6-8H PRN nausea and 01/02/25 tablet vomiting #10 tabs Allergies Allergy/AdvReac Type Severity Reaction Status Date / Time metformin AdvReac Intermediate Nausea Verified 01/04/25 14:16 Review of Systems Review of Systems All other systems are reviewed and are negative Constitutional: Reports as per HPI and Reports no additional constitutional complaints Eyes: Reports as per HPI and Reports no additional eye complaints Reports system reviewed and no additional complaints, except as documented Cardiovascular: Reports as per HPI and Reports no additional cardiovascular complaints Respiratory: Reports as per HPI and Reports no additional respiratory complaints Gastrointestinal: Reports as per HPI and Reports no additional gastrointestinal complaints Genitourinary: Reports no additional female genitourinary complaints Musculoskeletal: Reports no additional musculoskeletal complaints Skin/Breast: Reports system reviewed and no additional complaints, except as docu Psychiatric: Reports no additional psychiatric complaints Endocrine: Reports no additional endocrine complaints Hematologic/Lymphatic: Reports no additional hematologic/lymphatic complaints Allergic/Immunologic: Reports no additional allergic/immunologic complaints Reports system reviewed and no additional complaints, except as documented and Reports Abnormal speech present [facility] Past Medical History Medical History Neuropathy History of open wound of lower extremity Opioid use disorder Hypertension Sepsis Depression PCOS (polycystic ovarian syndrome) Rash Polysubstance (excluding opioids) dependence, daily use Methadone maintenance therapy patient Anxiety and depression Diabetes Surgical History Hx of removal of cyst Family History Family History Father No problems noted. Mother Hx of diabetes mellitus Sister Heart disease Social History Social History Household Members: Children Household Members Other:: daughter Housing: Apartment Do you presently have visiting nurse or other home services: No Alcohol intake: current Alcohol intake frequency: does not drink Patient Tobacco Use Status: Never used Tobacco Tobacco use type: Cigarette Cigarette Packs Per Day: 3 Cigarettes Per Day: 60.0 Years Smoked: 2 Smoked in Last 30 Days: No e-Cigarette/Vaping Use: Never Used Use of substances other than those prescribed or required for medical reasons: No Substance Use Type: Marijuana Advance Directives: No Advance Directives Information Provided: Yes Advance Directives Date on File: 01/11/22 Patient : No service: No Current occupational status: unemployed Physical Exam ED Vital Signs: Vital Signs - 24 hr 01/04/25 14:12 01/04/25 18:00 01/04/25 19:12 Temperature 98.6 F Pulse Rate 107 H 91 Respiratory Rate 20 20 Blood Pressure 155/106 H 191/102 H Pulse Oximetry 99 100 Oxygen Delivery Method Room Air Room Air BMI result Body Mass Index 42.6 Vital signs have been reviewed and appear to be correct. Blood pressure elevated. Heart rate normal. Respiratory rate normal. Temperature normal. Oxygen saturation normal. Appearance: Alert. Oriented X3. No acute distress. Head: Normal external exam. Normocephalic. Atraumatic. No Zhang signs noted. No raccoon eyes noted Eyes: PERRLA. EOMI. Conjunctiva and sclera normal. Eyelids normal. ENT: TM's Normal. Pharynx normal. Uvula midline. Dry mucous membranes. No trismus noted. No drooling noted. No muffled voice noted. Neck: Normal inspection. Neck supple. FROM. No adenopathy. Thyroid Normal. No meningeal signs. No neck mass noted. CVS: Normal heart rate and rhythm. Heart sound normal. No murmurs noted. Pulses normal throughout. Respiratory: No respiratory distress. Painless inspiration. Breath sounds normal. No wheezes/rales/rhonchi noted. Chest nontender. No accessory muscle usage noted or decreased air movement noted. Abdomen: Soft and nontender. Bowel sounds normal in all 4 quadrants. No distention noted. No organomegaly noted. No visible injury noted. Back: No CVA tenderness. Full range of motion noted. Skin: Skin warm and dry. Normal skin color. Normal skin turgor. No rashes/lesions/lacerations noted. Extremities: No lower extremity edema. Extremities exhibit normal range of motion. Extremities nontender. Neuro: Oriented X 3. Cranial nerve exam: II-XII are grossly intact No motor deficit. No sensory deficit. Reflexes normal. Course Course Course Narrative: This is an RME: Additional HPI, ROS, PE not included below will be deferred to primary provider. RME assessment and note performed by: Do Taylor PA-C This is a 39-year-old female, with a past medical history of hypertension, opioid use disorder, PCOS, who presents emergency department with concerns for vomiting. Patient was seen here on January 02 with similar symptoms. Patient was discharged with Zofran and has had no relief. Patient has a history of hypertension, diabetes, gastroparesis. Patient has been taking her insulin but reports her sugars have still been high. Reports some mild upset, no chest pain. States that she has had a difficult time remembering if she took all of her medications this morning as ?this morning has been a blur?. Patient was well-appearing, appears to be under no acute distress. Slightly hypertensive at 155/106, pulse 107. Further ER evaluation needed Plan: Labs Reevaluation(s) Reevaluation #1: Intractable vomiting for 2-3 days, unable to tolerate p.o. intake, needs IV hydration and antinausea medication while she is here. Simple UTI will treat with ceftriaxone IV. Time: 20:11 Medical Decision Making Differential Diagnosis Differential Diagnoses: The differential diagnosis associated with the presentation includes (Dehydration, electrolyte derangement, severe anemia, UTI, .) Admission/Observation Consideration of admission/observation: Escalation of care including admission/observation considered Consult Healthcare Provider Management of the patient was discussed with: Hospitalist (Dr. Ames) Lab Data [facility] Lab Attestation statement: I reviewed the patient's lab results. 01/04/25 14:38 01/04/25 14:38 Labs: Lab Results 01/04/25 01/04/25 Range/Units 14:38 16:38 WBC 17.7 H (4.8-10.8) X10*3/uL RBC 5.21 (4.20-5.50) X10*6/uL Hgb 14.0 (12.0-16.0) g/dl Hct 41.7 (37.0-47.0) % MCV 80.0 (80.0-98.0) fL MCH 26.9 L (27.0-33.0) pg MCHC 33.6 (31.0-35.0) g/dl RDW 13.6 (11.0-16.0) % Plt Count 440 H D (160-400) X10*3/uL MPV 8.2 L (9.4-12.3) fL Immature Gran % (Auto) 1.2 H (0.0-0.4) % Neut % (Auto) 75.2 H (45-73) % Lymph % (Auto) 16.6 L (20-40) % [place] % (Auto) 6.6 (2-11) % Eos % (Auto) 0.1 (0-4) % Baso % (Auto) 0.3 (0-2) % Lymph # (Auto) 2.9 (1.2-4.9) X10*3/uL [place] # (Auto) 1.2 (0.1-1.2) X10*3/uL Eos # (Auto) 0.0 (0.0-0.4) X10*3/uL Baso # (Auto) 0.1 (0.0-0.2) X10*3/uL Abs Immat Gran (auto) 0.21 H (0.00-0.03) X10*3/uL Absolute Neuts (auto) 13.3 H (2.0-8.3) x10*3/uL Absolute Nucleated RBC 0.000 (0.0-0.012) X10*3/uL Nucleated RBC % (auto) 0.0 (0.0-0.2) /100WBC Sodium 136 (135-145) mmol/L Potassium 3.7 (3.3-5.1) mmol/L Chloride 98 (96-108) mmol/L Carbon Dioxide 26 (22-29) mmol/L Anion Gap 16 (12-20) BUN 14 (9-16) mg/dL Creatinine 0.79 (0.5-1.4) mg/dL Estim Creat Clear Calc 135.8 Estimated GFR > 60 Random Glucose 194 H (60-115) mg/dL Calcium 9.5 (8.4-10.2) mg/dL Total Bilirubin 0.6 (0.0-1.0) mg/dL AST 25 (5-31) U/L ALT 17 (0-31) U/L Alkaline Phosphatase 95 (39-117) U/L Total Protein 8.6 H (6.5-8.0) g/dL Albumin 4.2 (3.5-5.0) g/dL Lipase 12 (8-78) U/L Beta HCG, Quant < 2 mIU/mL Urine Color Yellow Urine Appearance Cloudy Urine pH 6.5 (5.0-9.0) Ur Specific [place] 1.025 (1.005-1.025) Urine Protein 30 (1+) H (Neg-Trace) mg/dL Urine Glucose (UA) 100 H (Negative) mg/dL Urine Ketones Trace (Negative) mg/dL Urine Blood Moderate (2+) H (Negative) Urine Nitrite Negative (Negative) Ur Leukocyte Esterase Trace H (Negative) Urine RBC >20 H (0-2) /HPF Urine WBC 6-10 H (0-5) /HPF Ur Squamous Epith Cells 11-20 (0-2) /HPF Urine Bacteria 2+ (None Seen) Hyaline Casts 0-2 (0-2) /LPF Influenza Type A (PCR) NEGATIVE (Negative) Influenza Type B (PCR) NEGATIVE (Negative) RSV RNA Qual (PCR) NEGATIVE (Negative) SARS-CoV-2 RNA (RT-PCR) NEGATIVE (Negative) Medications Administered Discontinued Medications Generic Name Dose Route Start Last Admin Trade Name Freq PRN Reason Stop Dose Admin Al Hydroxide/Mg Hydroxide 30 ml 01/04/25 16:20 01/04/25 17:30 Magnesium Hydrox/Alum Hydrox 30 Ml Oral.Susp PO 01/04/25 16:21 Not Given ONCE ONE Famotidine 20 mg 01/04/25 16:20 01/04/25 17:27 Famotidine/Pf 20 Mg/2 Ml Vial IVPUSH 01/04/25 16:21 20 mg ONCE ONE Administration Lactated Ringer's 1,000 mls @ 999 mls/hr 01/04/25 16:30 01/04/25 18:50 Lr IV 01/04/25 17:30 Infused .Q1H1M NASH Infusion Ondansetron HCl 4 mg 01/04/25 16:20 01/04/25 17:27 Ondansetron Hcl 4 Mg/2 Ml Vial IVPUSH 01/04/25 16:21 4 mg ONCE ONE Administration Discharge Plan Discharge Clinical Impression: Cyclical vomiting, UTI (urinary tract infection) Patient Disposition: Admitted As Inpatient Print Language: Kittitian
[2025-01-04 14:44] LABS: MANUAL DIFF FLAG NO
[2025-01-04 14:46] LABS: Basophils Absolute Auto 0.1 X10*3/uL (0.0-0.2); Basophils Percent Auto 0.3 % (0-2); Eosinophils Percent Auto 0.1 % (0-4); Hematocrit 41.7 % (37.0-47.0); Imm Gran Abs Auto 0.21 X10*3/uL (0.00-0.03); Imm Gran Pct Auto 1.2 % (0.0-0.4); Lymphocytes Absolute Auto 2.9 X10*3/uL (1.2-4.9); Lymphocytes Percent Auto 16.6 % (20-40); Mean Corpuscular HGB Conc 33.6 g/dl (31.0-35.0); Mean Corpuscular Hemoglobin 26.9 pg (27.0-33.0); Mean Platelet Volume 8.2 fL (9.4-12.3); Monocytes Absolute Auto 1.2 X10*3/uL (0.1-1.2); Monocytes Percent Auto 6.6 % (2-11); Neutrophils Absolute Auto 13.3 x10*3/uL (2.0-8.3); Neutrophils Percent Auto 75.2 % (45-73); Platelet Count 440 X10*3/uL (160-400); Red Blood Count 5.21 X10*6/uL (4.20-5.50); Red Cell Distribution Width 13.6 % (11.0-16.0); White Blood Count 17.7 X10*3/uL (4.8-10.8)
[2025-01-04 15:03] LABS: Alanine Aminotransferase 17 U/L (0-31); Albumin Level 4.2 g/dL (3.5-5.0); Alkaline Phosphatase 95 U/L (39-117); Anion Gap 16 (12-20); Aspartate Amino Transferase 25 U/L (5-31); Bilirubin Total 0.6 mg/dL (0.0-1.0); Blood Urea Nitrogen 14 mg/dL (9-16); Calcium 9.5 mg/dL (8.4-10.2); Carbon Dioxide 26 mmol/L (22-29); Chloride 98 mmol/L (96-108); Creatinine Clr Calc Pharmacy 135.8; Estimated Glomerular Filt Rate > 60; Glucose Random 194 mg/dL (60-115); Lipase 12 U/L (8-78); Potassium 3.7 mmol/L (3.3-5.1); Sodium 136 mmol/L (135-145); Total Protein 8.6 g/dL (6.5-8.0)
[2025-01-04 15:42] LABS: Influenza A PCR NEGATIVE (Negative); Influenza B PCR NEGATIVE (Negative); Resp Syncy Virus RNA Qual PCR NEGATIVE (Negative); SARS COV2 PCR INHOUSE NEGATIVE (Negative)
[2025-01-04 15:47] LABS: HCG Quantitative < 2 mIU/mL
[2025-01-04 16:48] LABS: Appearance Urine Cloudy; Color Urine Yellow; Glucose Urine UA 100 mg/dL (Negative); Leukocyte Esterase Urine Trace (Negative); Nitrite Urine Negative (Negative); PH 6.5 (5.0-9.0); Specific Gravity - Urine 1.025 (1.005-1.025); UMIC TRIGGER UACC YES; Urine Blood Moderate (2+) (Negative); Urine Ketones Trace mg/dL (Negative); Urine Protein 30 (1+) mg/dL (Neg-Trace)
--- NOTE | 2025-01-04 16:51 | PC.NURSE ---
Informed MD was unable to get an IV line established. MD aware and will attempt US.
[2025-01-04 16:53] LABS: Bacteria Urine 2+ (None Seen); Hyaline Casts Urine 0-2 /LPF (0-2); RBC Urine >20 /HPF (0-2); UACC Culture Trigger YES
[2025-01-04] MEDS: Lactated Ringers 1,000 ML 999 ML IV (17:27)
[2025-01-04] MEDS: Famotidine/PF 20 MG/2 ML VIAL IVPUSH (17:27)
[2025-01-04] MEDS: ondansetron HCL 4 MG/2 ML VIAL IVPUSH (17:27)
[2025-01-04 18:00] VITALS: RESP 20
[2025-01-04 19:12] VITALS: BP 191/102; PULSE 91; O2SAT 100
--- NOTE | 2025-01-04 19:59 | PC.NURSE ---
Informed MD that IV has infiltrated , even though pt. did not c/o pain or any other issue until she had awoken. Had viscose cellar charge hand verify IV infiltration, d/t being difficult to tell d/t pt's arm size. IV taken out and informed MD of this issue. MD to come place IV US on pt. when available.
--- NOTE | 2025-01-04 20:03 | PC.NURSE ---
Informed MD that pt. cannot take Zofran IV d/t only being given 2 hours ago. MD arnett for pt. to receive Reglan. Pt. takes Cymbalta, but did not take it today. MD arnett for Reglan to be given today.
--- NOTE | 2025-01-04 20:23 | PC.NURSE ---
Informed PA at bedside, of pt's medication interaction with Reglan. Was okay to give, once US IV placed.
--- NOTE | 2025-01-04 20:48 | P.HPHOSP_ITS ---
History of Present Illness Date of Service: 01/04/25 Attending physician on admission: Mary Ames Chief Complaint: intractable vomiting Patient is a 39-year-old female with a past medical history significant for history IV drug use (last use 6 months ago, on methadone), type 2 diabetes on insulin, cyclic vomiting versus gastroparesis, chronic left arm ulcer, HTN, obesity, PCOS, who presented to the ED due to 2 days of intractable vomiting with mild epigastric pain. She was seen 2 days ago for the same symptoms reported vomiting at least 6 times a day, now she reports more frequently without any hematemesis or coffee-ground emesis. She denies any bowel symptoms including diarrhea or melena but reports that she has not had a bowel movement in the past 4 days and is unsure if she has passed any gas. She has mild epigastric tenderness which she reports she feels it is secondary to her frequent vomiting. She was unable to take any of her medications for the past few days due to her intractable vomiting. She denies any urinary symptoms including frequency, urgency or dysuria. She also denies any upper respiratory symptoms including cough, fever, chills, rhinorrhea or headache. No lower extremity edema, chest pain or shortness of breath. Review of Systems 2 Constitutional: Constitutional: Denies chills, Reports fatigue, Denies fever(s) and Denies headache(s) Eyes: Eyes: Denies change in vision and Denies photophobia ENT: Denies headache(s), Denies nasal congestion, Denies nasal discharge and Denies sore throat Cardiovascular: Cardiovascular: Denies no additional cardiovascular complaints, Denies chest pain, Denies rapid heart rate, Denies leg edema, Denies lightheadedness and Denies dyspnea Respiratory: Respiratory: Denies cough, Denies dyspnea and Denies wheezing Gastrointestinal: Gastrointestinal: Denies melena, Denies hematochezia, Denies coffee ground emesis, Reports constipation, Denies diarrhea, Reports nausea and Reports vomiting Genitourinary: Genitourinary: Denies difficulty voiding, Denies dysuria and Denies urinary urgency Musculoskeletal: Musculoskeletal: Denies muscle weakness Integumentary/Breasts: Skin/Breast: Denies rash Neurologic: Denies confusion and Denies headache(s) Psychiatric: Psychiatric: Denies confusion Endocrine: Endocrine: Reports fatigue Hematologic/Lymphatic: Hematologic/Lymphatic: Denies easy bleeding and Denies easy bruising Allergic/Immunologic: Allergic/Immunologic: Denies wheezing [facility] Medical History Neuropathy History of open wound of lower extremity Opioid use disorder Hypertension Sepsis Depression PCOS (polycystic ovarian syndrome) Rash Polysubstance (excluding opioids) dependence, daily use Methadone maintenance therapy patient Anxiety and depression Diabetes Functional capacity: independent ambulation Family History Father No problems noted. Mother Hx of diabetes mellitus Sister Heart disease Surgical History Hx of removal of cyst Social History Household Members: Children Household Members Other:: daughter Housing: Apartment Do you presently have visiting nurse or other home services: No Alcohol intake: current Alcohol intake frequency: does not drink Patient Tobacco Use Status: Never used Tobacco Tobacco use type: Cigarette Cigarette Packs Per Day: 3 Cigarettes Per Day: 60.0 Years Smoked: 2 Smoked in Last 30 Days: No e-Cigarette/Vaping Use: Never Used Use of substances other than those prescribed or required for medical reasons: No Substance Use Type: Marijuana Advance Directives: No Advance Directives Information Provided: Yes Advance Directives Date on File: 01/11/22 Patient : No service: No Current occupational status: unemployed Meds Allergies Allergy/AdvReac Type Severity Reaction Status Date / Time metformin AdvReac Intermediate Nausea Verified 01/04/25 14:16 Active Medications: Current Medications Acetaminophen (Acetaminophen 325 Mg Tablet) 975 mg PO Q6H PRN PRN Reason: Pain, Mild 1-3,fever,headache Calcium Carbonate (Calcium Carbonate 750 Mg Tab.Chew) 750 mg PO Q4H PRN PRN Reason: Heartburn Dextrose (Dextrose 50 % 25 Gm/50 Ml Syringe) 25 gm IVPUSH Q15M PRN; Protocol PRN Reason: per Hypoglycemia Standing Ord. Enoxaparin Sodium (Enoxaparin Sodium 40 Mg/0.4 Ml Syringe) 40 mg SUBCUT Q24H [place] Glucose (Glucose Gel 15 Gm Gel..Gram.) 15 gm PO Q15M PRN; Protocol PRN Reason: per Hypoglycemia Standing Ord. Hydromorphone HCl (Hydromorphone Hcl 1 Mg/Ml Syringe) 0.5 mg IVPUSH Q4H PRN; Protocol PRN Reason: Pain, Severe (Pain Scale 7-10) Lactated Ringer's (Lr) 1,000 mls @ 80 mls/hr IVCONT .[id number] [facility] Insulin Glargine (Insulin Glargine,Hum.Rec.Anlog 100 Unit/Ml 10 Ml Vial) 26 unit SUBCUT DAILY [facility] Insulin Human Lispro (Insulin Lispro 100 Unit/Ml 3 Ml Vial) 0 unit SUBCUT QIDACHS [facility]; Protocol Magnesium Hydroxide (Milk Of Magnesia 30 Ml Oral.Susp) 30 ml PO DAILY PRN PRN Reason: Constipation Melatonin (Melatonin 3 Mg Tablet) 6 mg PO BEDTIME PRN PRN Reason: Insomnia Morphine Sulfate (Morphine Sulfate 4 Mg/Ml Cartridge) 2 mg IVPUSH Q4H PRN; Protocol PRN Reason: Pain, Moderate(Pain Scale 4-6) Ondansetron HCl (Ondansetron Hcl 4 Mg/2 Ml Vial) 4 mg IVPUSH Q8H PRN PRN Reason: Nausea and Vomiting Polyethylene Glycol (Polyethylene Glycol 3350 17 Gm Powd.Pack) 17 gm PO DAILY PRN PRN Reason: Constipation Sodium Chloride (0.9 % Sodium Chloride Flush 3 Ml Syringe) 3 ml IVFLUSH [facility] Home Medications ?Medication ?Instructions ?Recorded ?Confirmed ?Last Taken ?Type methadone 10 mg/mL oral concentrate 120 mg PO DAILY 07/03/24 10/17/24 07/01/24 History Physical Exam 2 Vital Signs and Narrative: Vital Signs: Last Vital Signs Temp 98.6 F 01/04/25 14:12 Pulse 91 01/04/25 19:12 Resp 20 01/04/25 18:00 BP 191/102 H 01/04/25 19:12 Pulse Ox 100 01/04/25 19:12 O2 Del Method Room Air 01/04/25 19:12 BMI result Body Mass Index 42.6 General: AOx3, no acute distress Resp: CTA bilaterally CVS: S1, S2, RRR GI: hypoactive BS, mild epigastric tenderness, no distention Skin: Warm, dry Neuro: Cranial nerves II-XII grossly intact bilaterally. Motor grossly intact bilaterally Extremities: No LE edema Psych: Appropriate affect Const: General: No confusion Orientation/consciousness: No confusion Eyes: Direct Ophthalmoscopy: No photophobia Neuro: General: No confusion Results Labs 01/04/25 14:38 01/04/25 14:38 Labs: Laboratory Results - last 24 hr 01/04/25 01/04/25 14:38 16:38 MCV 80.0 MCH 26.9 L MCHC 33.6 RDW 13.6 Plt Count 440 H D MPV 8.2 L Immature Gran % (Auto) 1.2 H Neut % (Auto) 75.2 H Lymph % (Auto) 16.6 L [place] % (Auto) 6.6 Eos % (Auto) 0.1 Baso % (Auto) 0.3 Lymph # (Auto) 2.9 [place] # (Auto) 1.2 Eos # (Auto) 0.0 Baso # (Auto) 0.1 Abs Immat Gran (auto) 0.21 H Absolute Neuts (auto) 13.3 H Absolute Nucleated RBC 0.000 Nucleated RBC % (auto) 0.0 Anion Gap 16 Estim Creat Clear Calc 135.8 Estimated GFR > 60 Random Glucose 194 H Calcium 9.5 Total Bilirubin 0.6 AST 25 ALT 17 Alkaline Phosphatase 95 Total Protein 8.6 H Albumin 4.2 Lipase 12 Beta HCG, Quant < 2 Urine Color Yellow Urine Appearance Cloudy Urine pH 6.5 Ur Specific [place] 1.025 Urine Protein 30 (1+) H Urine Glucose (UA) 100 H Urine Ketones Trace Urine Blood Moderate (2+) H Urine Nitrite Negative Ur Leukocyte Esterase Trace H Urine RBC >20 H Urine WBC 6-10 H Ur Squamous Epith Cells 11-20 Urine Bacteria 2+ Hyaline Casts 0-2 Influenza Type A (PCR) NEGATIVE Influenza Type B (PCR) NEGATIVE RSV RNA Qual (PCR) NEGATIVE SARS-CoV-2 RNA (RT-PCR) NEGATIVE Assessment and Plan (1) Intractable cyclical vomiting: Status: Acute (2) Hypertensive urgency: Status: Acute (3) Morbid obesity: Status: Acute Plan Patient is a 39-year-old female with a past medical history significant for history IV drug use (last use 6 months ago, on methadone), type 2 diabetes on insulin, cyclic vomiting versus gastroparesis, chronic left arm ulcer, HTN, obesity, PCOS, who presented to the ED due to 2 days of intractable vomiting with mild epigastric pain. The patient was seen in the ED 2 days ago for the same symptoms and had relief with antiemetics and was discharged home hours later. Intractable cyclical vomiting versus gastroparesis -- daily marijuana use likely contributing - WBC elevated however chronic, no active infection, no sepsis - abdominopelvic CT ordered to rule out any acute etiology - lipase and LFTs normal - Reglan and zofran PRN for nausea - given 1 L LR in ED, continue 80 mL/HR - clear liquid diet, advance as tolerated - protonix 40mg IV BID - GI consult - monitor CBC and BMP Hypertensive urgency - patient has not been able to take her home blood pressure medications, amlodipine and lisinopril due to her intractable vomiting - labetalol 10 mg IV x 1 now - monitor BP - resume amlodipine and lisinopril when appropriate Type 2 diabetes - sliding scale insulin - usually takes Tresiba 52 units q.a.m., converted to reduced dose of Lantus at 26 units q.a.m. - clear liquid diet for now, when tolerating diet better transitioned to diabetic diet Chronic left arm ulcer - no sign of active infection History IV drug use - [facility] for methadone, confirm dose in AM and resume Morbid obesity - BMI 42.6 - weight loss encouraged Full code VTE prophylaxis: Lovenox Patient with intractable cyclical vomiting versus gastroparesis with a recent ED visit 2 days ago, likely exacerbated by daily marijuana use, requiring admission for at least 2 midnights stay for IV antiemetics, gastroenterology consultation. Quality Stroke Does the patient have a stroke diagnosis?: No VTE Prior VTE?: No VTE Risk Level:: Medical - moderate - high VTE Device Contraindication: Treatment Not Indicated VTE Drug Contraindication: N/A - Med Ordered
--- NOTE | 2025-01-04 20:50 | PC.NURSE ---
Showed EKG to ANIRUDH Mason for pt. PA okay to give Reglan once a line is established.
--- NOTE | 2025-01-04 21:35 | PC.NURSE ---
Informed ED MD of pt. still needing IV US placed. Is aware and stated will work on it, soon.
[2025-01-04 21:38] LABS: Glucose, Whole Blood 240 mg/dL (60-115)
--- NOTE | 2025-01-04 22:36 | PC.NURSE ---
US IV placed, by ED MD, but infiltrated when flushed prior to meds given. Meds still not given. Informed MD Palacios, awaiting new US IV placed. Meds on hold at this time.
--- NOTE | 2025-01-04 22:39 | PC.NURSE ---
Messaged ANIRUDH Nettles, still no IV placed, meds on hold.
--- NOTE | 2025-01-04 22:54 | PC.NURSE ---
Updated ANIRUDH Nettles at bedside, pt. did have a line but it was out when attempting to flush line. Attempted to save IV line, but it had infiltrated.
[2025-01-05] VITALS (7 sets, daily range): BP systolic 143–181; BP diastolic 75–110; PULSE 78–94; RESP 16–18; TEMP 36.3–36.8; O2SAT 95–99; BMI 44.1
--- NOTE | 2025-01-05 00:04 | PC.NURSE ---
ED provider at bedside for U/S IV, unable to obtain at this time. will inform hospitals of plan for IR tomorrow
--- NOTE | 2025-01-05 00:57 | PC.NURSE ---
central line placed to R femoral by MD Palacios in ED. all lumen patent at this time . pt tolerated well
[2025-01-05] MEDS: Metoclopramide HCl 10 MG/2 ML VIAL IVPUSH ×2 (01:16→12:32)
[2025-01-05] MEDS: cefTRIAXone sodium 1 GM VIAL IVPUSH ×2 (01:17→23:15)
[2025-01-05] MEDS: Pantoprazole Sodium 40 MG/10 ML VIAL IVPUSH ×3 (01:20→17:43)
[2025-01-05] MEDS: Labetalol HCL 100 MG/20 ML VIAL 10 MG IVPUSH (01:20)
[2025-01-05] MEDS: 0.9 % Sodium Chloride Flush 3 ML SYRINGE IVFLUSH ×2 (01:27→15:11)
[2025-01-05] MEDS: Lactated Ringers 1,000 ML 100 ML IVCONT (01:28)
[2025-01-05] MEDS: iohexoL 350 MG/ML 100 ML INFUS..BTL IV (02:36)
[2025-01-05] MEDS: Morphine Sulfate 4 MG/ML CARTRIDGE 2 MG IVPUSH (02:47)
--- NOTE | 2025-01-05 03:04 | PC.NURSE ---
pt reporting she feels like she is starting to withdrawal from methadone, was not able to keep it down at home the past few days. dose is 120, last dose was sunday per pt. MD santos
[2025-01-05] MEDS: traMADoL HCL 50 MG TABLET PO (03:31)
[2025-01-05 04:59] LABS: MANUAL DIFF FLAG NO
[2025-01-05 05:01] LABS: Basophils Absolute Auto 0.1 X10*3/uL (0.0-0.2); Basophils Percent Auto 0.3 % (0-2); Hemoglobin 13.2 g/dl (12.0-16.0); Imm Gran Abs Auto 0.19 X10*3/uL (0.00-0.03); Imm Gran Pct Auto 1.2 % (0.0-0.4); Lymphocytes Absolute Auto 2.4 X10*3/uL (1.2-4.9); Lymphocytes Percent Auto 14.8 % (20-40); Mean Corpuscular HGB Conc 33.8 g/dl (31.0-35.0); Mean Corpuscular Hemoglobin 27.2 pg (27.0-33.0); Mean Corpuscular Volume 80.2 fL (80.0-98.0); Mean Platelet Volume 8.3 fL (9.4-12.3); Monocytes Absolute Auto 1.2 X10*3/uL (0.1-1.2); Monocytes Percent Auto 7.4 % (2-11); Neutrophils Absolute Auto 12.4 x10*3/uL (2.0-8.3); Neutrophils Percent Auto 76.3 % (45-73); Platelet Count 371 X10*3/uL (160-400); Red Blood Count 4.86 X10*6/uL (4.20-5.50); Red Cell Distribution Width 13.4 % (11.0-16.0); White Blood Count 16.2 X10*3/uL (4.8-10.8)
[2025-01-05 05:15] LABS: Anion Gap 15 (12-20); Blood Urea Nitrogen 16 mg/dL (9-16); Calcium 8.9 mg/dL (8.4-10.2); Carbon Dioxide 26 mmol/L (22-29); Chloride 97 mmol/L (96-108); Creatinine Clr Calc Pharmacy 115.3; Estimated Glomerular Filt Rate > 60; Glucose Random 248 mg/dL (60-115); Potassium 3.8 mmol/L (3.3-5.1); Sodium 134 mmol/L (135-145)
--- NOTE | 2025-01-05 05:38 | PC.NURSE ---
Admit note for RN Jessica: pt BIBA for n/v, decreased PO intake, weakness x4 days. exacerbated by marijuana use. seen 2 days ago for same, d/c'ed. pt A/O x4, calm and cooperative with care, ambulates independently. multiple U/S IV attempts, central line placed to R femoral, triple lumen. LR infusing at 100mls/hr. ADMIT:cyclical vomiting, HTN, UTI. clear liquid diet, GI consult. Diabetic. methadone last taken Sunday per pt, dose 120 but not yet verified.
[2025-01-05 07:23] LABS: Glucose, Whole Blood 263 mg/dL (60-115)
[2025-01-05] MEDS: ondansetron HCL 4 MG/2 ML VIAL IVPUSH ×2 (07:59→20:33)
[2025-01-05] MEDS: Insulin Lispro 100 UNIT/ML 3 ML VIAL SUBCUT ×4 (08:04→20:38)
[2025-01-05] MEDS: amLODIPine Besylate 5 MG TABLET PO (09:18)
--- NOTE | 2025-01-05 10:31 | PHA.MEDREC ---
Addendum entered by Fifi Broussard RPh 01/05/25 10:47: reviewed by [facility]. Original Note: Pharmacy Consult ? Medication Reconciliation Pharmacy has completed the medication reconciliation. Spoke to patient to confirm med list. Patient states she no longer takes Capsaicin 0.025 % cream, Trulicity 0.75mg, Ondansertron 4 mg, Trazadone 50 mg, Urea 20%. Patient confirmed Tresiba Flex touch 62 units daily and Insulin Lispro is QID per sliding scale . Patient states she takes Methadone 120 mg daily from [facility] in [place], last dose was 12/31/24
[2025-01-05 11:37] LABS: Glucose, Whole Blood 238 mg/dL (60-115)
[2025-01-05] MEDS: Insulin Glargine,Hum.rec.anlog 100 UNIT/ML 10 ML VIAL 26 UNIT SUBCUT (12:28)
--- NOTE | 2025-01-05 12:28 | MHC.CM.PN ---
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
[2025-01-05] MEDS: lisinopriL 20 MG TABLET PO (12:29)
[2025-01-05] MEDS: DULoxetine HCl 30 MG CAPSULE.DR PO (12:29)
--- NOTE | 2025-01-05 14:02 | P.PNIM_ITS ---
Subjective Subjective Date of Service: 01/05/25 Interval History: f/u on cyclical vomiting and acute colitis has persistent nausea and vomiting and persitent Physical Exam 2 Vital Signs: Vital Signs: Last Vital Signs Temp 98.2 F 01/05/25 10:59 Pulse 92 01/05/25 10:59 Resp 18 01/05/25 10:59 BP 143/80 H 01/05/25 12:29 Pulse Ox 99 01/05/25 10:59 O2 Del Method Room Air 01/05/25 10:59 BMI result Body Mass Index 44.1 General: AO X 3, no acute distress Resp: CTA bilateral CVS: S1,S2,RRR GI: +BS, NT, no distention Skin: No rash Neuro: motor grossly intact Psych: appropriate affect Objective Data Active Medications Acetaminophen (Acetaminophen 325 Mg Tablet) 975 mg PO Q6H PRN PRN Reason: Pain, Mild 1-3,fever,headache Amlodipine Besylate (Amlodipine Besylate 5 Mg Tablet) 5 mg PO DAILY [facility]; Protocol Last Admin: 01/05/25 09:18 Dose: 5 mg Documented By: ART Calcium Carbonate (Calcium Carbonate 750 Mg Tab.Chew) 750 mg PO Q4H PRN PRN Reason: Heartburn Dextrose (Dextrose 50 % 25 Gm/50 Ml Syringe) 25 gm IVPUSH Q15M PRN; Protocol PRN Reason: per Hypoglycemia Standing Ord. Duloxetine HCl (Duloxetine Hcl 30 Mg Capsule.Dr) 30 mg PO DAILY [facility] Last Admin: 01/05/25 12:29 Dose: 30 mg Documented By: SD Enoxaparin Sodium (Enoxaparin Sodium 40 Mg/0.4 Ml Syringe) 40 mg SUBCUT Q24H [facility] Last Admin: 01/04/25 22:36 Dose: Not Given Documented By: SIENNA Non-Admin Reason: Patient Refused Glucose (Glucose Gel 15 Gm Gel..Gram.) 15 gm PO Q15M PRN; Protocol PRN Reason: per Hypoglycemia Standing Ord. Hydromorphone HCl (Hydromorphone Hcl 1 Mg/Ml Syringe) 0.5 mg IVPUSH Q4H PRN; Protocol PRN Reason: Pain, Severe (Pain Scale 7-10) Insulin Glargine (Insulin Glargine,Hum.Rec.Anlog 100 Unit/Ml 10 Ml Vial) 26 unit SUBCUT DAILY [facility] Last Admin: 01/05/25 12:28 Dose: 26 unit Documented By: SD Insulin Human Lispro (Insulin Lispro 100 Unit/Ml 3 Ml Vial) 0 unit SUBCUT QIDACHS [facility]; Protocol Last Admin: 01/05/25 12:29 Dose: 4 unit Documented By: SD Lisinopril (Lisinopril 20 Mg Tablet) 20 mg PO DAILY [facility]; Protocol Last Admin: 01/05/25 12:29 Dose: 20 mg Documented By: SD Magnesium Hydroxide (Milk Of Magnesia 30 Ml Oral.Susp) 30 ml PO DAILY PRN PRN Reason: Constipation Melatonin (Melatonin 3 Mg Tablet) 6 mg PO BEDTIME PRN PRN Reason: Insomnia Metoclopramide HCl (Metoclopramide Hcl 10 Mg/2 Ml Vial) 10 mg IVPUSH Q6H PRN PRN Reason: Nausea and Vomiting Last Admin: 01/05/25 12:32 Dose: 10 mg Documented By: SD Morphine Sulfate (Morphine Sulfate 4 Mg/Ml Cartridge) 2 mg IVPUSH Q4H PRN; Protocol PRN Reason: Pain, Moderate(Pain Scale 4-6) Last Admin: 01/05/25 02:47 Dose: 2 mg Documented By: MANUEL Ondansetron HCl (Ondansetron Hcl 4 Mg/2 Ml Vial) 4 mg IVPUSH Q8H PRN PRN Reason: Nausea and Vomiting Last Admin: 01/05/25 07:59 Dose: 4 mg Documented By: ART Pantoprazole Sodium (Pantoprazole Sodium 40 Mg/10 Ml Vial) 40 mg IVPUSH BID@0630,1630 [facility] Last Admin: 01/05/25 07:57 Dose: 40 mg Documented By: ART Polyethylene Glycol (Polyethylene Glycol 3350 17 Gm Powd.Pack) 17 gm PO DAILY PRN PRN Reason: Constipation Sodium Chloride (0.9 % Sodium Chloride Flush 3 Ml Syringe) 3 ml IVFLUSH QSHIFT [facility] Last Admin: 01/05/25 09:22 Dose: Not Given Documented By: ART Non-Admin Reason: IV Running Labs 01/05/25 04:41 01/05/25 04:41 Labs: Laboratory Results - last 24 hr 05/12/2601/04/25 01/04/25 14:38 16:38 21:34 MCV 80.0 MCH 26.9 L MCHC 33.6 RDW 13.6 Plt Count 440 H D MPV 8.2 L Immature Gran % (Auto) 1.2 H Neut % (Auto) 75.2 H Lymph % (Auto) 16.6 L [place] % (Auto) 6.6 Eos % (Auto) 0.1 Baso % (Auto) 0.3 Lymph # (Auto) 2.9 [place] # (Auto) 1.2 Eos # (Auto) 0.0 Baso # (Auto) 0.1 Abs Immat Gran (auto) 0.21 H Absolute Neuts (auto) 13.3 H Absolute Nucleated RBC 0.000 Nucleated RBC % (auto) 0.0 Anion Gap 16 Estim Creat Clear Calc 135.8 Estimated GFR > 60 POC Glucose 240 H Random Glucose 194 H Calcium 9.5 Total Bilirubin 0.6 AST 25 ALT 17 Alkaline Phosphatase 95 Total Protein 8.6 H Albumin 4.2 Lipase 12 Beta HCG, Quant < 2 Urine Color Yellow Urine Appearance Cloudy Urine pH 6.5 Ur Specific [place] 1.025 Urine Protein 30 (1+) H Urine Glucose (UA) 100 H Urine Ketones Trace Urine Blood Moderate (2+) H Urine Nitrite Negative Ur Leukocyte Esterase Trace H Urine RBC >20 H Urine WBC 6-10 H Ur Squamous Epith Cells 11-20 Urine Bacteria 2+ Hyaline Casts 0-2 Influenza Type A (PCR) NEGATIVE Influenza Type B (PCR) NEGATIVE RSV RNA Qual (PCR) NEGATIVE SARS-CoV-2 RNA (RT-PCR) NEGATIVE 01/05/25 01/05/25 01/05/25 04:41 07:13 11:21 MCV 80.2 MCH 27.2 MCHC 33.8 RDW 13.4 Plt Count 371 MPV 8.3 L Immature Gran % (Auto) 1.2 H Neut % (Auto) 76.3 H Lymph % (Auto) 14.8 L [place] % (Auto) 7.4 Eos % (Auto) 0.0 Baso % (Auto) 0.3 Lymph # (Auto) 2.4 [place] # (Auto) 1.2 Eos # (Auto) 0.0 Baso # (Auto) 0.1 Abs Immat Gran (auto) 0.19 H Absolute Neuts (auto) 12.4 H Absolute Nucleated RBC 0.000 Nucleated RBC % (auto) 0.0 Anion Gap 15 Estim Creat Clear Calc 115.3 Estimated GFR > 60 POC Glucose 263 H 238 H Random Glucose 248 H Calcium 8.9 D Total Bilirubin AST ALT Alkaline Phosphatase Total Protein Albumin Lipase Beta HCG, Quant Urine Color Urine Appearance Urine pH Ur Specific [place] Urine Protein Urine Glucose (UA) Urine Ketones Urine Blood Urine Nitrite Ur Leukocyte Esterase Urine RBC Urine WBC Ur Squamous Epith Cells Urine Bacteria Hyaline Casts Influenza Type A (PCR) Influenza Type B (PCR) RSV RNA Qual (PCR) SARS-CoV-2 RNA (RT-PCR) Microbiology Microbiology Results: Microbiology 01/04/25 Unknown Urine Culture - Preliminary Urine clean catch - Clean Catch Midstream Culture too young to evaluate. Assessment and Plan (1) Colitis: Status: Acute Plan Patient is a 39-year-old female with a past medical history significant for history IV drug use (last use 6 months ago, on methadone), type 2 diabetes on insulin, cyclic vomiting versus gastroparesis, chronic left arm ulcer, HTN, obesity, PCOS, who presented to the ED due to 2 days of intractable vomiting with mild epigastric pain. The patient was seen in the ED 2 days ago for the same symptoms and had relief with antiemetics and was discharged home hours later. Intractable cyclical vomiting versus gastroparesis, but ct shows distal colitis and wbc are high, add ceftriaxone and flagyl for colitis iv fluid and zofran for nausea Hypertensive urgency, resolved continue oral home meds Type 2 diabetes sliding scale insulin usually takes Tresiba 52 units q.a.m., converted to reduced dose of Lantus at 26 units q.a.m clear liquid diet for now, when tolerating diet better transitioned to diabetic diet Chronic left arm ulcer - no sign of active infection History IV drug use methadone once confirmed and addication med consult Morbid obesity - BMI 42.6 - weight loss encouraged Full code VTE prophylaxis: Lovenox need for inpt: intractable n/v, and colitis needs iv abx Quality Stroke Does the patient have a stroke diagnosis?: No VTE Prior VTE?: No VTE Risk Level:: Medical - moderate - high VTE Device Contraindication: Treatment Not Indicated VTE Drug Contraindication: N/A - Med Ordered
[2025-01-05] MEDS: metroNIDAZOLE/NS 500 MG/100 ML PIGGYBACK 100 MG IV ×2 (15:08→22:12)
[2025-01-05 16:20] LABS: Glucose, Whole Blood 272 mg/dL (60-115)
[2025-01-05 20:14] LABS: Glucose, Whole Blood 286 mg/dL (60-115)
[2025-01-05] MEDS: Lactated Ringers 1,000 ML 125 ML IVCONT (20:38)
--- NOTE | 2025-01-06 02:38 | CONS_ITS ---
DATE OF SERVICE: 01/05/2025 REFERRING PHYSICIAN: Brooks OLEARY REASON FOR CONSULTATION: Vomiting. HISTORY OF PRESENT ILLNESS: The patient is a pleasant 39-year-old diabetic who was admitted to the hospital after presenting to the emergency room on January 04 with epigastric pain, nausea and vomiting. She had been seen 2 days prior, and diagnosed with cyclical vomiting syndrome. She was given IV fluids and Compazine and Benadryl. She tolerated p.o. and was discharged, symptoms recurred and she came back to the emergency room yesterday and was re-evaluated and admitted to the hospital. There has been no hematemesis or melena. The patient describes similar symptoms in the past, but usually when she has run out of insulin, and antihypertensives. As part of her evaluation, she had evaluation with an abdominal CT scan, which is reviewed. This is interpreted as showing fatty liver, gallbladder sludge and adrenal nodule and some sigmoid and descending colonic mural thickening concerning for colitis. There is no pericolonic inflammatory change reported. The patient has no symptoms of colitis. She has no diarrhea and has no rectal bleeding. She has no personal history of colitis. PAST MEDICAL HISTORY: 1. Diabetes mellitus. 2. Substance abuse, no heroin use for 6 months, on methadone, neuropathy. 3. Hypertension. 4. Depression. 5. Polycystic ovary syndrome. 6. Elevated body mass index. 7. Anxiety. CURRENT MEDICATIONS: Her current medication list is reviewed in the chart. ALLERGIES: METFORMIN. FAMILY HISTORY: This is reviewed with the patient and is noncontributory. SOCIAL HISTORY: Substance use as above. She does not smoke and denies recent alcohol intake. REVIEW OF SYSTEMS: SKIN: No pruritus. HEENT: Negative. CARDIOPULMONARY: No shortness of breath or chest pain. GASTROINTESTINAL: As above. GENITOURINARY: Negative. NEUROPSYCHIATRIC: Negative. PHYSICAL EXAMINATION: GENERAL: Shows a pleasant female, lying in bed with an emesis bag next to her on the pillow. VITAL SIGNS: Reviewed in electronic medical record and are stable. SKIN: Anicteric. HEENT: Shows no scleral icterus. NECK: Without lymphadenopathy or thyromegaly. LUNGS: Clear. HEART: Shows a regular rate and rhythm. S1, S2. No murmur. ABDOMEN: Soft. There is no tenderness, guarding or rebound. Bowel sounds are present. EXTREMITIES: Show scarring from injection. Laboratory data and CT scanning are reviewed. IMPRESSION: Nausea and vomiting with epigastric pain. This appears consistent with an acute process. The differential diagnosis for this includes cyclic vomiting syndrome and infectious gastroenteritis. I discussed this with her. I suggested she refrain from marijuana use for a while and see if her symptoms improve. I agree with treating her symptomatically as you are doing with IV fluids, antiemetics and proton pump inhibitors. She has no evidence of colitis. I do not think she needs antibiotic treatment for this. I think this thickening seen on the CAT scan is nonspecific and this can be worked up as an outpatient with elective colonoscopy once her nausea and vomiting improved. I discussed this with her. Thanks for asking me to see her. I will follow her in the hospital as needed. MD BEN Castaneda/KRUNAL / [id number]
[2025-01-06 03:24] VITALS: BP 138/70; PULSE 86; RESP 18; TEMP 36.4; O2SAT 96
[2025-01-06] MEDS: metroNIDAZOLE/NS 500 MG/100 ML PIGGYBACK 100 MG IV (05:04)
[2025-01-06] MEDS: Metoclopramide HCl 10 MG/2 ML VIAL IVPUSH (05:31)
[2025-01-06 06:11] LABS: MANUAL DIFF FLAG NO
[2025-01-06 06:18] LABS: Basophils Absolute Auto 0.1 X10*3/uL (0.0-0.2); Basophils Percent Auto 0.4 % (0-2); Eosinophils Absolute Auto 0.1 X10*3/uL (0.0-0.4); Eosinophils Percent Auto 0.4 % (0-4); Hematocrit 35.9 % (37.0-47.0); Hemoglobin 12.2 g/dl (12.0-16.0); Imm Gran Abs Auto 0.21 X10*3/uL (0.00-0.03); Imm Gran Pct Auto 1.3 % (0.0-0.4); Lymphocytes Absolute Auto 3.9 X10*3/uL (1.2-4.9); Lymphocytes Percent Auto 23.8 % (20-40); Mean Corpuscular Hemoglobin 27.6 pg (27.0-33.0); Mean Corpuscular Volume 81.2 fL (80.0-98.0); Mean Platelet Volume 8.5 fL (9.4-12.3); Monocytes Absolute Auto 1.2 X10*3/uL (0.1-1.2); Monocytes Percent Auto 7.1 % (2-11); Neutrophils Absolute Auto 10.9 x10*3/uL (2.0-8.3); Platelet Count 359 X10*3/uL (160-400); Red Blood Count 4.42 X10*6/uL (4.20-5.50); Red Cell Distribution Width 13.2 % (11.0-16.0); White Blood Count 16.2 X10*3/uL (4.8-10.8)
[2025-01-06] MEDS: Pantoprazole Sodium 40 MG/10 ML VIAL IVPUSH ×2 (06:23→15:35)
[2025-01-06] MEDS: Lactated Ringers 1,000 ML 125 ML IVCONT (06:23)
[2025-01-06 06:27] LABS: Anion Gap 12 (12-20); Blood Urea Nitrogen 11 mg/dL (9-16); Calcium 8.6 mg/dL (8.4-10.2); Carbon Dioxide 29 mmol/L (22-29); Chloride 96 mmol/L (96-108); Creatinine Clr Calc Pharmacy 130.4; Estimated Glomerular Filt Rate > 60; Glucose Random 220 mg/dL (60-115); Potassium 3.4 mmol/L (3.3-5.1); Sodium 134 mmol/L (135-145)
[2025-01-06 07:02] VITALS: BP 169/84; PULSE 86; RESP 12; TEMP 36.8; O2SAT 96
[2025-01-06 07:16] LABS: Glucose, Whole Blood 242 mg/dL (60-115)
[2025-01-06] MEDS: DULoxetine HCl 30 MG CAPSULE.DR PO (07:38)
[2025-01-06] MEDS: amLODIPine Besylate 5 MG TABLET PO (07:38)
[2025-01-06] MEDS: lisinopriL 20 MG TABLET PO (07:38)
[2025-01-06] MEDS: Insulin Glargine,Hum.rec.anlog 100 UNIT/ML 10 ML VIAL 26 UNIT SUBCUT (07:39)
[2025-01-06] MEDS: Insulin Lispro 100 UNIT/ML 3 ML VIAL SUBCUT ×3 (07:39→16:48)
[2025-01-06] MEDS: 0.9 % Sodium Chloride Flush 3 ML SYRINGE IVFLUSH ×2 (07:40→15:35)
--- NOTE | 2025-01-06 08:25 | HO.PM.IMPN ---
Subjective Subjective Date of Service: 01/06/25 Interval History: f/u on cyclical vomiting and acute colitis Has abdominal pain but is now better, persistent nausea Physical Exam Vital Signs: Vital Signs: Last Vital Signs Temp 98.2 F 01/06/25 07:02 Pulse 86 01/06/25 07:02 Resp 12 01/06/25 07:02 BP 169/84 H 01/06/25 07:02 Pulse Ox 96 01/06/25 07:02 O2 Del Method Room Air 01/06/25 07:02 BMI result Body Mass Index 44.1 General: AO X 3, no acute distress Resp: CTA bilateral CVS: S1,S2,RRR GI: +BS, NT, no distention Skin: No rash Neuro: motor grossly intact Psych: appropriate affect Objective Data Active Medications Acetaminophen (Acetaminophen 325 Mg Tablet) 975 mg PO Q6H PRN PRN Reason: Pain, Mild 1-3,fever,headache Amlodipine Besylate (Amlodipine Besylate 5 Mg Tablet) 5 mg PO DAILY [facility]; Protocol Last Admin: 01/06/25 07:38 Dose: 5 mg Documented By: RAMON Calcium Carbonate (Calcium Carbonate 750 Mg Tab.Chew) 750 mg PO Q4H PRN PRN Reason: Heartburn Ceftriaxone Sodium (Ceftriaxone Sodium 1 Gm Vial) 1 gm IVPUSH Q24H [facility] Last Admin: 01/05/25 23:15 Dose: 1 gm Documented By: BAIRON Dextrose (Dextrose 50 % 25 Gm/50 Ml Syringe) 25 gm IVPUSH Q15M PRN; Protocol PRN Reason: per Hypoglycemia Standing Ord. Duloxetine HCl (Duloxetine Hcl 30 Mg Capsule.) 30 mg PO DAILY [facility] Last Admin: 01/06/25 07:38 Dose: 30 mg Documented By: RAMON Enoxaparin Sodium (Enoxaparin Sodium 40 Mg/0.4 Ml Syringe) 40 mg SUBCUT Q24H [facility] Last Admin: 01/05/25 20:39 Dose: Not Given Documented By: BAIRON Non-Admin Reason: Patient Refused Glucose (Glucose Gel 15 Gm Gel..Gram.) 15 gm PO Q15M PRN; Protocol PRN Reason: per Hypoglycemia Standing Ord. Hydromorphone HCl (Hydromorphone Hcl 1 Mg/Ml Syringe) 0.5 mg IVPUSH Q4H PRN; Protocol PRN Reason: Pain, Severe (Pain Scale 7-10) Metronidazole (Flagyl) 500 mg in 100 mls @ 100 mls/hr IV Q8H [facility] Last Infusion: 01/06/25 06:23 Dose: Infused Documented By: BAIRON Lactated Ringer's (Lr) 1,000 mls @ 125 mls/hr IVCONT .Q8H [facility] Last Admin: 01/06/25 06:23 Dose: 125 mls/hr Documented By: BAIRON Insulin Glargine (Insulin Glargine,Hum.Rec.Anlog 100 Unit/Ml 10 Ml Vial) 26 unit SUBCUT DAILY [facility] Last Admin: 01/06/25 07:39 Dose: 26 unit Documented By: RAMON Insulin Human Lispro (Insulin Lispro 100 Unit/Ml 3 Ml Vial) 0 unit SUBCUT QIDACHS [facility]; Protocol Last Admin: 01/06/25 07:39 Dose: 4 unit Documented By: RAMON Lisinopril (Lisinopril 20 Mg Tablet) 20 mg PO DAILY [facility]; Protocol Last Admin: 01/06/25 07:38 Dose: 20 mg Documented By: RAMON Magnesium Hydroxide (Milk Of Magnesia 30 Ml Oral.Susp) 30 ml PO DAILY PRN PRN Reason: Constipation Melatonin (Melatonin 3 Mg Tablet) 6 mg PO BEDTIME PRN PRN Reason: Insomnia Metoclopramide HCl (Metoclopramide Hcl 10 Mg/2 Ml Vial) 10 mg IVPUSH Q6H PRN PRN Reason: Nausea and Vomiting Last Admin: 01/06/25 05:31 Dose: 10 mg Documented By: BAIRON Morphine Sulfate (Morphine Sulfate 4 Mg/Ml Cartridge) 2 mg IVPUSH Q4H PRN; Protocol PRN Reason: Pain, Moderate(Pain Scale 4-6) Last Admin: 01/05/25 02:47 Dose: 2 mg Documented By: MANUEL Ondansetron HCl (Ondansetron Hcl 4 Mg/2 Ml Vial) 4 mg IVPUSH Q8H PRN PRN Reason: Nausea and Vomiting Last Admin: 01/05/25 20:33 Dose: 4 mg Documented By: BAIRON Pantoprazole Sodium (Pantoprazole Sodium 40 Mg/10 Ml Vial) 40 mg IVPUSH BID@0630,1630 [facility] Last Admin: 01/06/25 06:23 Dose: 40 mg Documented By: BAIRON Polyethylene Glycol (Polyethylene Glycol 3350 17 Gm Powd.Pack) 17 gm PO DAILY PRN PRN Reason: Constipation Sodium Chloride (0.9 % Sodium Chloride Flush 3 Ml Syringe) 3 ml IVFLUSH QSHIFT [facility] Last Admin: 01/06/25 07:40 Dose: 3 ml Documented By: RAMON Comments: patient has TLC flushed with 5 ml Labs 01/06/25 06:02 01/06/25 06:02 Labs: Laboratory Results - last 24 hr 01/05/25 01/05/25 01/05/25 11:21 16:03 19:15 MCV MCH MCHC RDW Plt Count MPV Immature Gran % (Auto) Neut % (Auto) Lymph % (Auto) [place] % (Auto) Eos % (Auto) Baso % (Auto) Lymph # (Auto) [place] # (Auto) Eos # (Auto) Baso # (Auto) Abs Immat Gran (auto) Absolute Neuts (auto) Absolute Nucleated RBC Nucleated RBC % (auto) Anion Gap Estim Creat Clear Calc Estimated GFR POC Glucose 238 H 272 H 286 H Random Glucose Calcium 01/06/25 01/06/25 06:02 07:01 MCV 81.2 MCH 27.6 MCHC 34.0 RDW 13.2 Plt Count 359 MPV 8.5 L Immature Gran % (Auto) 1.3 H Neut % (Auto) 67.0 Lymph % (Auto) 23.8 [place] % (Auto) 7.1 Eos % (Auto) 0.4 Baso % (Auto) 0.4 Lymph # (Auto) 3.9 [place] # (Auto) 1.2 Eos # (Auto) 0.1 Baso # (Auto) 0.1 Abs Immat Gran (auto) 0.21 H Absolute Neuts (auto) 10.9 H Absolute Nucleated RBC 0.000 Nucleated RBC % (auto) 0.0 Anion Gap 12 Estim Creat Clear Calc 130.4 Estimated GFR > 60 POC Glucose 242 H Random Glucose 220 H Calcium 8.6 Microbiology Microbiology Results: Microbiology 01/04/25 Unknown Urine Culture - Final Urine clean catch - Clean Catch Midstream Assessment and Plan (1) Colitis: Status: Acute Plan Patient is a 39-year-old female with a past medical history significant for history IV drug use (last use 6 months ago, on methadone), type 2 diabetes on insulin, cyclic vomiting versus gastroparesis, chronic left arm ulcer, HTN, obesity, PCOS, who presented to the ED due to 2 days of intractable vomiting with mild epigastric pain. The patient was seen in the ED 2 days ago for the same symptoms and had relief with antiemetics and was discharged home hours later. Intractable cyclical vomiting versus gastroparesis, but ct shows distal colitis and wbc are high, ceftriaxone and flagyl for colitis, started 5/5 iv fluid and zofran for nausea Hypertensive urgency, resolved continue home meds lisinopril 20, norvasc 5 if needed increase norvasc to 10 Type 2 diabetes sliding scale insulin usually takes Tresiba 52 units q.a.m., converted to reduced dose of Lantus at 26 units q.a.m clear liquid diet for now, when tolerating diet better transitioned to diabetic diet Chronic left arm ulcer - no sign of active infection History IV drug use methadone once confirmed and addication med consult Morbid obesity - BMI 42.6 - weight loss encouraged Full code VTE prophylaxis: Lovenox need for inpt: intractable n/v, and colitis needs iv abx Quality Stroke Does the patient have a stroke diagnosis?: No VTE Prior VTE?: No VTE Risk Level:: Medical - moderate - high VTE Device Contraindication: Treatment Not Indicated VTE Drug Contraindication: N/A - Med Ordered
--- NOTE | 2025-01-06 09:18 | HE.PHANOTE ---
METHADONE METHADONE VERIFICATION FORM SENT FROM DORIS SOTO. PATIENT GETS METHADONE 120 MG FROM [facility] ([phone]) LAST DOSE OF METHADONE AT CLINIC ON 12/26/24 @0930 AND PATIENT WAS GIVEN 6 TAKE HOME BOTTLES
[2025-01-06] MEDS: methADONE HCl 20 MG/2 ML ORAL.CONC 90 MG PO (09:39)
--- NOTE | 2025-01-06 11:35 | PM.DS ---
DS: Providers Provider Date of Service: 01/06/25 Date of admission: 01/04/25 20:02 Date of discharge: 01/06/25 Primary care physician: None Physician Consults: 01/04/25 21:08 Consult to Gastroenterology Routine Consulting Provider: Quinton Fitzgerald Reason for consultation: intractable vomiting Has provider been notified: No 01/05/25 14:06 Addiction Medicine Provider Routine Consulting Provider: Addiction Covering Reason for consultation: substance use d/o 01/06/25 07:49 Consult to Wound Care Routine Reason for consultation: Right great toe callous area Has provider been notified: No 01/06/25 09:27 Inpt - Recovery Team Routine Comment: Reason for consultation: BRIAN eval DS: Diagnosis Discharge Diagnosis (1) Colitis: Status: Acute DS: Summary Hospital Course Hospital Course: admission hpi Attending physician on admission: Mary Ames Chief Complaint: intractable vomiting Patient is a 39-year-old female with a past medical history significant for history IV drug use (last use 6 months ago, on methadone), type 2 diabetes on insulin, cyclic vomiting versus gastroparesis, chronic left arm ulcer, HTN, obesity, PCOS, who presented to the ED due to 2 days of intractable vomiting with mild epigastric pain. She was seen 2 days ago for the same symptoms reported vomiting at least 6 times a day, now she reports more frequently without any hematemesis or coffee-ground emesis. She denies any bowel symptoms including diarrhea or melena but reports that she has not had a bowel movement in the past 4 days and is unsure if she has passed any gas. She has mild epigastric tenderness which she reports she feels it is secondary to her frequent vomiting. She was unable to take any of her medications for the past few days due to her intractable vomiting. She denies any urinary symptoms including frequency, urgency or dysuria. She also denies any upper respiratory symptoms including cough, fever, chills, rhinorrhea or headache. No lower extremity edema, chest pain or shortness of breath. hospital course: She was admitted for nause and vomiting in setting of marijuana use, A CT of abdomen and pelvis showed some non-specicific thickening initially thought to be colitis, she was seen by GI and thought that she likely had cyclical vomiting episode related to marijuana use and as such was treated with IVF, antiemetic and diet advanced to regular diet now. Elevated WBC is likely reactive Time Attestation Discharge Coordination Time (in mins): 45 Quality: Safe Use of Opioids Does Pt have an Active Cancer Diagnosis on the Problem List?: No Quality: Stroke Does the patient have a stroke diagnosis?: No Physical Exam Vital Signs: Vital Signs: Last Vital Signs Temp 98.2 F 01/06/25 07:02 Pulse 86 01/06/25 07:02 Resp 12 01/06/25 07:02 BP 169/84 H 01/06/25 07:02 Pulse Ox 96 01/06/25 07:02 O2 Del Method Room Air 01/06/25 07:02 BMI result Body Mass Index 44.1 DS: Data Data Completed and Pending Completed studies during hospitalization [Text1]: Procedures Drainage of Buttock Subcutaneous Tissue and Fascia, Open Approach (02/21/24) Insertion of Infusion Device into Right Basilic Vein, Percutaneous Approach (02/28/24) Insertion of Infusion Device into Superior Vena Cava, Percutaneous Approach (07/03/24) Insertion of Infusion Device into Upper Vein, Percutaneous Approach (02/21/24) Ultrasonography of Superior Vena Cava, Guidance (07/03/24) Labs on day of discharge: Laboratory Results - last 24 hr 01/05/25 01/05/25 01/05/25 11:21 16:03 19:15 WBC RBC Hgb Hct MCV MCH MCHC RDW Plt Count MPV Immature Gran % (Auto) Neut % (Auto) Lymph % (Auto) [place] % (Auto) Eos % (Auto) Baso % (Auto) Lymph # (Auto) [place] # (Auto) Eos # (Auto) Baso # (Auto) Abs Immat Gran (auto) Absolute Neuts (auto) Absolute Nucleated RBC Nucleated RBC % (auto) Sodium Potassium Chloride Carbon Dioxide Anion Gap BUN Creatinine Estim Creat Clear Calc Estimated GFR POC Glucose 238 H 272 H 286 H Random Glucose Calcium 01/06/25 01/06/25 06:02 07:01 WBC 16.2 H RBC 4.42 Hgb 12.2 Hct 35.9 L MCV 81.2 MCH 27.6 MCHC 34.0 RDW 13.2 Plt Count 359 MPV 8.5 L Immature Gran % (Auto) 1.3 H Neut % (Auto) 67.0 Lymph % (Auto) 23.8 [place] % (Auto) 7.1 Eos % (Auto) 0.4 Baso % (Auto) 0.4 Lymph # (Auto) 3.9 [place] # (Auto) 1.2 Eos # (Auto) 0.1 Baso # (Auto) 0.1 Abs Immat Gran (auto) 0.21 H Absolute Neuts (auto) 10.9 H Absolute Nucleated RBC 0.000 Nucleated RBC % (auto) 0.0 Sodium 134 L Potassium 3.4 Chloride 96 Carbon Dioxide 29 Anion Gap 12 BUN 11 Creatinine 0.84 Estim Creat Clear Calc 130.4 Estimated GFR > 60 POC Glucose 242 H Random Glucose 220 H Calcium 8.6 Discharge Plan Discharge Anticipated Discharge Date/Time: 01/06/25 13:24 Patient Disposition: Home, Self-Care Discharge Diagnosis: cyclical vomiting, UTI Referrals: [facility] Jeremy Napoles [Provider Group] - 01/07/25 (Please bring your last dose letter with you in the AM ) Physician,None [Primary Care Provider] - 1 Week Discharge Medications: New cefuroxime axetil 250 mg tablet 250 mg PO BID 5 Days Qty: 10 0RF Continued methadone 10 mg/mL Concentrate 120 mg PO DAILY (DME) FreeStyle [place] 3 [place] Misc See Rx Instructions .ROUTE .MEDSUPPLY Qty: 1 0RF Rx Instructions: for use with glucose sensor lisinopril 20 mg tablet 20 mg PO DAILY 90 Days Qty: 90 1RF amlodipine 5 mg tablet 5 mg PO DAILY Qty: 90 1RF (DME) FreeStyle Lite Strips Strip See Rx Instructions .Route Qty: 100 6RF Rx Instructions: As directed tests 3 X/day insulin degludec [Tresiba FlexTouch U-200] 200 unit/mL (3 mL) insulin pen 62 unit subcut DAILY (DME) lancets [FreeStyle Lancets] 28 gauge misc See Rx Instructions .ROUTE .MEDSUPPLY Qty: 100 1RF Rx Instructions: 3 times per day insulin lispro [Admelog SoloStar U-100 Insulin] 100 unit/mL insulin pen See Rx Instructions subcut QID MDD 130 30 Days Qty: 30 11RF Rx Instructions: 80-100 6 units 101-150 18 units 151-200 22 units 201-250 24 units 251-300 28 units 301-350 30 units over 350 32 units over 300 check ketones subcutaneously 4 times a day; (DME) Ketone Urine Test Strip See Rx Instructions .ROUTE .MEDSUPPLY Qty: 25 2RF Rx Instructions: prn qid glucose over 250, nausea, vomiting illness (DME) pen needle, diabetic [BD Edel 2nd Gen Pen Needle] 32 gauge x 5/32 needle See Rx Instructions .ROUTE .MEDSUPPLY Qty: 200 11RF Rx Instructions: qid (DME) FreeStyle [place] 3 Plus Sensor Device See Rx Instructions .ROUTE .MEDSUPPLY Qty: 6 3RF Rx Instructions: every 15 days for continuous use duloxetine [Cymbalta] 30 mg capsule,delayed release(DR/EC) 30 mg PO DAILY 90 Days Qty: 90 0RF Discharge Orders: Discharge Order (Routine); Ordered 01/06/25 Ordered By: Nael Richardson Diet: Diabetic diet Activity on Discharge: As tolerated Stand Alone Forms: Patient Portal Discharge page Print Language: Tajik Care Plan Goals: recovery from cyclical vomiting and uti Health Concerns: uti cyclical vomiting Plan of Treatment: take cefuroxime for uti avoid marijuana Assessment: see above Patient Instructions: Cefuroxime (By mouth), Urinary Tract Infection in Women (DC), Cannabis Use Disorder (DC) Discharge Date/Time: 01/06/25 18:25
[2025-01-06 11:41] LABS: Glucose, Whole Blood 267 mg/dL (60-115)
--- NOTE | 2025-01-06 13:32 | MHC.CM.PN ---
pt dcd home self care
--- NOTE | 2025-01-06 15:14 | HO.ADDICT_ITS ---
History of Present Illness Date of Service: 01/06/2025 Chief Complaint: Intractable vomiting Reason for Consult: methadone dose titration Sources of Information: patient interviewed and chart reviewed HPI Narrative: Patient is a 39 year old female with history of T2DM, gastroparesis and OUD, medically admitted with intractable vomiting. Consult requested as patient reported she had not had her methadone dose for several days. Patient seen in room 343, initially seen in early AM and patient was laying in bed, visibly uncomfortable, stating she is ready to restart methadone. Methadone dose verified at 120mg with last dose administered on 12/26 with 6 take home doses. Last dose 01/01. Methadone 90mg ordered and administered. Patient seen several hours after methadone dose administration, and she was awake, alert, engaged in interview. Reporting feeling much better . She states she has been abstaining from substance use since last admission here on June. During that admission she was discharged to SNF to complete IV abx and went home 08/2024. Her dose was increased from 100mg to 120mg upon returning home. She attends weekly groups at her [facility] and has strong family supports. Denies any alcohol use Does smoke marijuana daily, and is aware that this may be contributing to her vomiting episodes Past Psychiatric History: She has never been admitted into Psychiatry she does not have outpatient providers at this moment. She was seen by addiction medicine a few days ago. Review of Systems Constitutional: Reports as per HPI and Reports no additional constitutional complaints Diagnostics Vital Signs (24Hr): Vital Signs - 24 hr 01/05/25 15:15 01/05/25 19:41 01/06/25 03:24 Temperature 98.3 F 97.3 F 97.6 F Pulse Rate 88 86 86 Respiratory Rate 16 18 18 Blood Pressure 143/75 H 146/78 H 138/70 Pulse Oximetry 97 96 96 Oxygen Delivery Method Room Air Room Air Room Air 01/06/25 07:02 Temperature 98.2 F Pulse Rate 86 Respiratory Rate 12 Blood Pressure 169/84 H Pulse Oximetry 96 Oxygen Delivery Method Room Air BMI result Body Mass Index 44.1 Labs 01/06/25 06:02 01/06/25 06:02 Labs: Laboratory Results - last 48 hr 01/04/25 01/04/25 01/04/25 14:38 16:38 21:34 WBC RBC Hgb Hct MCV MCH MCHC RDW Plt Count MPV Immature Gran % (Auto) Neut % (Auto) Lymph % (Auto) [place] % (Auto) Eos % (Auto) Baso % (Auto) Lymph # (Auto) [place] # (Auto) Eos # (Auto) Baso # (Auto) Abs Immat Gran (auto) Absolute Neuts (auto) Absolute Nucleated RBC Nucleated RBC % (auto) Sodium Potassium Chloride Carbon Dioxide Anion Gap BUN Creatinine Estim Creat Clear Calc Estimated GFR POC Glucose 240 H Random Glucose Calcium Beta HCG, Quant < 2 Urine Color Yellow Urine Appearance Cloudy Urine pH 6.5 Ur Specific [place] 1.025 Urine Protein 30 (1+) H Urine Glucose (UA) 100 H Urine Ketones Trace Urine Blood Moderate (2+) H Urine Nitrite Negative Ur Leukocyte Esterase Trace H Urine RBC >20 H Urine WBC 6-10 H Ur Squamous Epith Cells 11-20 Urine Bacteria 2+ Hyaline Casts 0-2 Influenza Type A (PCR) NEGATIVE Influenza Type B (PCR) NEGATIVE RSV RNA Qual (PCR) NEGATIVE SARS-CoV-2 RNA (RT-PCR) NEGATIVE 01/05/25 01/05/25 01/05/25 04:41 07:13 11:21 WBC 16.2 H RBC 4.86 Hgb 13.2 Hct 39.0 MCV 80.2 MCH 27.2 MCHC 33.8 RDW 13.4 Plt Count 371 MPV 8.3 L Immature Gran % (Auto) 1.2 H Neut % (Auto) 76.3 H Lymph % (Auto) 14.8 L [place] % (Auto) 7.4 Eos % (Auto) 0.0 Baso % (Auto) 0.3 Lymph # (Auto) 2.4 [place] # (Auto) 1.2 Eos # (Auto) 0.0 Baso # (Auto) 0.1 Abs Immat Gran (auto) 0.19 H Absolute Neuts (auto) 12.4 H Absolute Nucleated RBC 0.000 Nucleated RBC % (auto) 0.0 Sodium 134 L Potassium 3.8 Chloride 97 Carbon Dioxide 26 Anion Gap 15 BUN 16 Creatinine 0.93 Estim Creat Clear Calc 115.3 Estimated GFR > 60 POC Glucose 263 H 238 H Random Glucose 248 H Calcium 8.9 D Beta HCG, Quant Urine Color Urine Appearance Urine pH Ur Specific [place] Urine Protein Urine Glucose (UA) Urine Ketones Urine Blood Urine Nitrite Ur Leukocyte Esterase Urine RBC Urine WBC Ur Squamous Epith Cells Urine Bacteria Hyaline Casts Influenza Type A (PCR) Influenza Type B (PCR) RSV RNA Qual (PCR) SARS-CoV-2 RNA (RT-PCR) 01/05/25 01/05/25 01/06/25 16:03 19:15 06:02 WBC 16.2 H RBC 4.42 Hgb 12.2 Hct 35.9 L MCV 81.2 MCH 27.6 MCHC 34.0 RDW 13.2 Plt Count 359 MPV 8.5 L Immature Gran % (Auto) 1.3 H Neut % (Auto) 67.0 Lymph % (Auto) 23.8 [place] % (Auto) 7.1 Eos % (Auto) 0.4 Baso % (Auto) 0.4 Lymph # (Auto) 3.9 [place] # (Auto) 1.2 Eos # (Auto) 0.1 Baso # (Auto) 0.1 Abs Immat Gran (auto) 0.21 H Absolute Neuts (auto) 10.9 H Absolute Nucleated RBC 0.000 Nucleated RBC % (auto) 0.0 Sodium 134 L Potassium 3.4 Chloride 96 Carbon Dioxide 29 Anion Gap 12 BUN 11 Creatinine 0.84 Estim Creat Clear Calc 130.4 Estimated GFR > 60 POC Glucose 272 H 286 H Random Glucose 220 H Calcium 8.6 Beta HCG, Quant Urine Color Urine Appearance Urine pH Ur Specific [place] Urine Protein Urine Glucose (UA) Urine Ketones Urine Blood Urine Nitrite Ur Leukocyte Esterase Urine RBC Urine WBC Ur Squamous Epith Cells Urine Bacteria Hyaline Casts Influenza Type A (PCR) Influenza Type B (PCR) RSV RNA Qual (PCR) SARS-CoV-2 RNA (RT-PCR) 01/06/25 01/06/25 07:01 11:36 WBC RBC Hgb Hct MCV MCH MCHC RDW Plt Count MPV Immature Gran % (Auto) Neut % (Auto) Lymph % (Auto) [place] % (Auto) Eos % (Auto) Baso % (Auto) Lymph # (Auto) [place] # (Auto) Eos # (Auto) Baso # (Auto) Abs Immat Gran (auto) Absolute Neuts (auto) Absolute Nucleated RBC Nucleated RBC % (auto) Sodium Potassium Chloride Carbon Dioxide Anion Gap BUN Creatinine Estim Creat Clear Calc Estimated GFR POC Glucose 242 H 267 H Random Glucose Calcium Beta HCG, Quant Urine Color Urine Appearance Urine pH Ur Specific [place] Urine Protein Urine Glucose (UA) Urine Ketones Urine Blood Urine Nitrite Ur Leukocyte Esterase Urine RBC Urine WBC Ur Squamous Epith Cells Urine Bacteria Hyaline Casts Influenza Type A (PCR) Influenza Type B (PCR) RSV RNA Qual (PCR) SARS-CoV-2 RNA (RT-PCR) Mental Status Exam Mental Status Exam Patient Appearance: Well Grooomed and Appropriate Level of Consciousness: Awake, Appropriate and Alert Patient Behavior: Appropriate and Talkative Affect Description: Calm Speech Pattern: Clear Hallucinations: None Thought Content: positive for Intact Judgement: Good Medications Medications Current Medications Acetaminophen (Acetaminophen 325 Mg Tablet) 975 mg PO Q6H PRN PRN Reason: Pain, Mild 1-3,fever,headache Amlodipine Besylate (Amlodipine Besylate 5 Mg Tablet) 5 mg PO DAILY [facility]; Protocol Last Admin: 01/06/25 07:38 Dose: 5 mg Calcium Carbonate (Calcium Carbonate 750 Mg Tab.Chew) 750 mg PO Q4H PRN PRN Reason: Heartburn Ceftriaxone Sodium (Ceftriaxone Sodium 1 Gm Vial) 1 gm IVPUSH Q24H [facility] Last Admin: 01/05/25 23:15 Dose: 1 gm Dextrose (Dextrose 50 % 25 Gm/50 Ml Syringe) 25 gm IVPUSH Q15M PRN; Protocol PRN Reason: per Hypoglycemia Standing Ord. Duloxetine HCl (Duloxetine Hcl 30 Mg Capsule.Dr) 30 mg PO DAILY [facility] Last Admin: 01/06/25 07:38 Dose: 30 mg Enoxaparin Sodium (Enoxaparin Sodium 40 Mg/0.4 Ml Syringe) 40 mg SUBCUT Q24H [facility] Last Admin: 01/05/25 20:39 Dose: Not Given Glucose (Glucose Gel 15 Gm Gel..Gram.) 15 gm PO Q15M PRN; Protocol PRN Reason: per Hypoglycemia Standing Ord. Hydromorphone HCl (Hydromorphone Hcl 1 Mg/Ml Syringe) 0.5 mg IVPUSH Q4H PRN; Protocol PRN Reason: Pain, Severe (Pain Scale 7-10) Metronidazole (Flagyl) 500 mg in 100 mls @ 100 mls/hr IV Q8H [facility] Last Infusion: 01/06/25 06:23 Dose: Infused Lactated Ringer's (Lr) 1,000 mls @ 125 mls/hr IVCONT .Q8H [facility] Last Admin: 01/06/25 15:12 Dose: Not Given Insulin Glargine (Insulin Glargine,Hum.Rec.Anlog 100 Unit/Ml 10 Ml Vial) 26 unit SUBCUT DAILY [facility] Last Admin: 01/06/25 07:39 Dose: 26 unit Insulin Human Lispro (Insulin Lispro 100 Unit/Ml 3 Ml Vial) 0 unit SUBCUT QIDACHS [facility]; Protocol Last Admin: 01/06/25 11:48 Dose: 6 unit Lisinopril (Lisinopril 20 Mg Tablet) 20 mg PO DAILY [facility]; Protocol Last Admin: 01/06/25 07:38 Dose: 20 mg Magnesium Hydroxide (Milk Of Magnesia 30 Ml Oral.Susp) 30 ml PO DAILY PRN PRN Reason: Constipation Melatonin (Melatonin 3 Mg Tablet) 6 mg PO BEDTIME PRN PRN Reason: Insomnia Metoclopramide HCl (Metoclopramide Hcl 10 Mg/2 Ml Vial) 10 mg IVPUSH Q6H PRN PRN Reason: Nausea and Vomiting Last Admin: 01/06/25 05:31 Dose: 10 mg Morphine Sulfate (Morphine Sulfate 4 Mg/Ml Cartridge) 2 mg IVPUSH Q4H PRN; Protocol PRN Reason: Pain, Moderate(Pain Scale 4-6) Last Admin: 01/05/25 02:47 Dose: 2 mg Ondansetron HCl (Ondansetron Hcl 4 Mg/2 Ml Vial) 4 mg IVPUSH Q8H PRN PRN Reason: Nausea and Vomiting Last Admin: 01/05/25 20:33 Dose: 4 mg Pantoprazole Sodium (Pantoprazole Sodium 40 Mg/10 Ml Vial) 40 mg IVPUSH BID@0630,1630 [facility] Last Admin: 01/06/25 06:23 Dose: 40 mg Polyethylene Glycol (Polyethylene Glycol 3350 17 Gm Powd.Pack) 17 gm PO DAILY PRN PRN Reason: Constipation Sodium Chloride (0.9 % Sodium Chloride Flush 3 Ml Syringe) 3 ml IVFLUSH QSHIFT [facility] Last Admin: 01/06/25 07:40 Dose: 3 ml Allergies Allergies Allergy/AdvReac Type Severity Reaction Status Date / Time metformin AdvReac Intermediate Nausea Verified 01/04/25 14:16 Assessment & Plan Assessment & Plan (1) Opioid use disorder, severe, in early remission: Status: Acute Code(s): F11.21 - Opioid dependence, in remission Assessment and Plan: * tolerated 90mg methadone --asked if she wanted remainder of dose today as she would be discahrging this evening, and she declined * will follow up in AM to continue dosing at [facility] Total time managing care of this patient today ___35_ minutes. PMFSH Past Medical History Medical History (Updated 01/06/25 @ 16:27 by Marivel Bentley CNP) Neuropathy History of open wound of lower extremity Opioid use disorder Hypertension Sepsis Depression PCOS (polycystic ovarian syndrome) Rash Polysubstance (excluding opioids) dependence, daily use Methadone maintenance therapy patient Anxiety and depression Diabetes Family History Family History Father No problems noted. Mother Hx of diabetes mellitus Sister Heart disease Surgical History Surgical History Hx of removal of cyst Social History Social History Household Members: Family Household Members Other:: daughter Housing: House Do you presently have visiting nurse or other home services: No Alcohol intake: current Alcohol intake frequency: does not drink Patient Tobacco Use Status: Never used Tobacco Tobacco use type: Cigarette Cigarette Packs Per Day: 3 Cigarettes Per Day: 60.0 Years Smoked: 2 e-Cigarette/Vaping Use: Never Used Second Hand Smoke Exposure: No Substance Use Type: Marijuana Advance Directives Date on File: 01/11/22 service: No Current occupational status: unemployed
[2025-01-06 15:21] VITALS: BP 129/84; PULSE 87; RESP 16; TEMP 36.8; O2SAT 99
--- NOTE | 2025-01-06 15:22 | HO.WOUND ---
Wound Consult: Initial 39yr old?female admitted to [facility] on 01/04/25 - See progress notes and H&P for detailed history.? Wound consult placed for Right Great Toe.? Patient agreeable to assessment and photo documentation.? Patient reports she has been sober / clean for 6 months. She reports she is working to control her blood glucose and reports understanding on the effects of high sugars and wound healing. Of note her chronic left arm wound is healing and resurfaced at this time. The patient reports since her last admission she has began treatment with a coat operator insulator and last saw them two weeks ago. She reports she has follow up for ortho shoe fitting. The right great toe callus is dry and thickened. It remains intact at this time. Patient was educated that at this time to keep dry and protected. was advised to not use foam dressing as they have the potential to donate moisture. The goal is to keep the callus dry and continue topical treatment with outpt Podiatry. Left great toe - no open tissue noted - dry stained skin from recent opening. Non observed now. Cleansed with Betadine and dry gauze applied. Recommendations: 1. Provide adequate and supplemental nutrition.? 2. When applicable maintain blood glucose levels per Providers order. Right Great Toe - Protect from trauma, paint with Betadine and cover with dry gauze when walking and standing for longer periods of time. Continue followup outpt with Podiatry. Re-consult wound care Nurse for wound deterioration or wound changes.
[2025-01-06 16:34] LABS: Glucose, Whole Blood 233 mg/dL (60-115)
--- NOTE | 2025-01-06 18:10 | PC.NURSE ---
TLC site drsg is CDI,no crepitus,no redness,no bleeding noted,patient instructed to keep drsg on for 24 hours
== END 2025-01-06 18:25 | disposition home or self-care (01) | DRG 249 ==
LOC: HO.ED 20:10 → HO.EDOVER 20:38 → HO.S3 01-05 08:17 → HO.EDOVER 01-05 13:40
PROVIDERS: Physician Assistant; Physician Assistant Medical; Admitting Provider Student in an Organized Health Care Education/Training Program; Emergency Provider Emergency Medicine; Visit Provider Internal Medicine
DX: R11.2 Nausea with vomiting, unspecified (principal); E11.43 Type 2 diabetes mellitus with diabetic autonomic (poly)neuropathy; K31.84 Gastroparesis; E28.2 Polycystic ovarian syndrome; F12.90 Cannabis use, unspecified, uncomplicated; E66.01 Morbid (severe) obesity due to excess calories; F11.20 Opioid dependence, uncomplicated; I16.0 Hypertensive urgency; N39.0 Urinary tract infection, site not specified; L98.499 Non-pressure chronic ulcer of skin of other sites with unspecified severity; Z68.41 Body mass index [BMI] 40.0-44.9, adult; Z20.822 Contact with and (suspected) exposure to COVID-19; Z79.4 Long term (current) use of insulin; Z79.899 Other long term (current) drug therapy
CPT/HCPCS: 0241U; 36415; 74177; 80048; 80053; 81001; 82947; 83690; 84702; 85025; 87086; 93005; 99221; 99285; J0696; J1308; J1836; J1920; J2270; J2405; J2470; J2765; J7120; Q9967; S9485

== ENCOUNTER 2025-01-04 20:02 | Outpatient (BNV) | payer OTHER, SELFPAY | END 2025-01-04 20:46 | PROVIDERS: Admitting Provider Student in an Organized Health Care Education/Training Program; Emergency Provider Emergency Medicine; Visit Provider Internal Medicine | DX: Z13.6 Encounter for screening for cardiovascular disorders (principal) | CPT/HCPCS: 93010 ==

== ENCOUNTER 2025-01-04 20:02 | Outpatient (BNV) | payer OTHER, SELFPAY | END 2025-01-05 02:25 | PROVIDERS: Admitting Provider Student in an Organized Health Care Education/Training Program; Emergency Provider Emergency Medicine; Visit Provider Radiology Diagnostic Radiology | DX: R10.9 Unspecified abdominal pain (principal); R11.10 Vomiting, unspecified | CPT/HCPCS: 74177 ==

== ENCOUNTER → 2025-01-04 20:02 | Outpatient (BNV) | payer OTHER, SELFPAY | PROVIDERS: Admitting Provider Student in an Organized Health Care Education/Training Program; Emergency Provider Emergency Medicine; Visit Provider Nurse Practitioner Psychiatric/Mental Health | DX: F11.21 Opioid dependence, in remission (principal) | CPT/HCPCS: 99221 ==

== ENCOUNTER → 2025-01-04 20:02 | Outpatient (BNV) | payer OTHER, SELFPAY | PROVIDERS: Admitting Provider Student in an Organized Health Care Education/Training Program; Emergency Provider Emergency Medicine; Visit Provider Physician Assistant | DX: K52.9 Noninfective gastroenteritis and colitis, unspecified (principal) | CPT/HCPCS: 99223; 99232; 99239; 99499 ==

== ENCOUNTER 2025-01-08 12:17 | Outpatient (AMB) | payer OTHER, SELFPAY ==
--- NOTE | 2025-01-08 07:45 | A.OFFVIS_ITS ---
Vital Signs 01/08/25 12:41 Height 5 ft 8 in Weight 293 lb 3.437 oz BMI 44.6 BP 118/68 Blood Pressure Location Rt brachial Position Sitting Pulse 82 Pulse Source Pulse Oximeter Intake Visit Reasons: T2DM Intake Note: Patient presents today for a follow-up on Type 2 Diabetes Mellitus: Last Diabetic eye exam was on: OVER DUE Last Podiatry exam was on: Patient does not see a Sheet Metal Operator Most recent HbA1c: 9.3%, 10/17/2024 Random Glucose- 307 mg/dL, Today [employer] Required: No Accompanied by: Self / Same As Patient Allergies metformin Adverse Reaction (Intermediate, Verified 01/04/25 14:16) Nausea HPI Comments Details: 39 YO female who is seen in f/u for type 2 diabetes. She was seen in consult 07/09/2024 with an A1c of 12.3% and has been followed intensively since that time. Most recent A1c 10/17/2023 9.3% down from 12.3%. Basal insulin has been changed to Tresiba and her basal/ bolus dosing has been intensified with each visit to lower glucose average. At the time of her initial visit labs were ordered to determine the type of diabetes which have not yet been done (lab had difficulty drawing blood work). She will attempt to have these done again. She was in the ER last week with cyclical vomiting related to either marijuana use and/or gastroparesis. She was admitted overnight for IV hydration and Zofran and also treated for a UTI. The patient has a history of opioid use disorder on methadone, abscess of the buttocks requiring hospitalization 2023, osteomyelitis and cellulitis of the right foot requiring hospitalization in July 2024 status post 6 weeks antibiotic therapy and recently seen by I and D 09/10/2024 with no additional follow-up needed unless recurrence. Foot ulcer has healed and she is no longer going to the wound center however has been instructed to return if the area opens op. She has additional prior history of uncontrolled DM,gastroparesis, obesity, PCOS, opioid use disorder, history of nausea. During her hospital stay she was seen by vascular and circulation to the right leg was widely patent without intervention needed. She is now followed by Dr. Garcia her new podiatry She is not using street drugs. She continues weekly follow-up with [facility] in [place] daily and once weekly for clinical counseling. She has not had a primary care provider in quite some time and had been getting her medication through the ER. She was recently seen by CDE and referred to a program to get healthy meals. Initially diagnosed with T2DM at age 25 y.o. Was initially started on treatment with diet and was able to bring her numbers down with 50 pound weight loss. metformin caused nausea Tresiba 62 units admelog tid before meals 80-100 6 units 101-150 18 units 151-200 22 units 201-250 24 units 251-300 28 units and follow dka protocol 301-350 30 units and follow dka protocol over 350 32 units and follow dka protocol Dexcom average glucose: 200 14 day continuous glucose monitor report reviewed Glucose Managment indicator 8.1 % TIme in ranges: Fourteen % very high (above 250) 48 % high ?(181-250) 30 % in range ?(70-180] 0 no % low (69-55) 0 % ?very low (below 54) Interpretation: Glucose running 45 points over target throughout the 24 hour. She has been checking via fingerstick while off sensor. She has been running high 100's to 200. Reports low sugars none recent. Treats lows with glucose tabs Family history of T2DM in []. No retinopathy: Has eyes checked yearly, last eye exam scheduled for 09/12/24 Has neuropathy some shooting pain better on cymbalta does not see podiatry, referred several visits ago, urea prescribed for dry skin and has capcasin cream urea not covered she was given a different cream by her animal attendants and trainers followed by Dr. Washington. He will be providing dm shoes. No known nephropathy, on andrew-i microalbumin 15.0 09/18/24 08/17/2024 eGFR>60 Not on statin no lipid profile in EHR Has been ordered Denies CAD. Denies chest pain, dyspnea or symptoms of claudication SHe feels her depression had been improving she is using trazodone p.r.n. [place] discouraged by recent gastro issues and her dog was just put down this week. She is going to the substance abuse clinic and is working with new counselor. Works for [employer] 4-6 hours per day Will be applying for disability Diet: break yogurt or muffin top lunch leftovers dinner chick sand salad some pizza at night eats: poptarts cheese sticks fruit Recently seen by Elli Pizano RD who recommended: Work on reducing total carb per meal to 75 g or less following healthy plate method and 0-20 g as snack 1-2 /day if needed Include lean protein foods (cottage cheese, eggs,poultry, tofu, beans ) in your meal s Try as bedtime snack cottage cheese with applesauce practice mindful eating She has been working on this She has a history of PCOS: She has not had a period in at least several years and is planning to see luis fernando She did have excess facial hair in her teen early 20s some scalp loss. [facility] Medical History (Updated 01/06/25 @ 16:27 by Marivel Bentley CNP) Neuropathy History of open wound of lower extremity Opioid use disorder Hypertension Sepsis Depression PCOS (polycystic ovarian syndrome) Rash Polysubstance (excluding opioids) dependence, daily use Methadone maintenance therapy patient Anxiety and depression Diabetes Surgical History Hx of removal of cyst Family History Father No problems noted. Mother Hx of diabetes mellitus Sister Heart disease Social History Household Members: Family Household Members Other:: daughter Housing: House Do you presently have visiting nurse or other home services: No Alcohol intake: current Alcohol intake frequency: does not drink Patient Tobacco Use Status: Never used Tobacco Tobacco use type: Cigarette Cigarette Packs Per Day: 3 Cigarettes Per Day: 60.0 Years Smoked: 2 e-Cigarette/Vaping Use: Never Used Second Hand Smoke Exposure: No Substance Use Type: Marijuana Advance Directives Date on File: 01/11/22 service: No Current occupational status: unemployed Physical Exam Const Other: Absence of Cushingoid features. Absence of acromegalic features. Neck exam reveals nl size thyroid about 15 gms. No thyroid nodules palpable. Heart S1 S2, Reg R/R. No M/R G. Skin exam reveals absence of vitiligo or acanthosis nigricans. Visual exam of foot performed. No ulcerations or open lesions. No inter digit maceration or fissuring. + onychomycosis nail bed, has callouses. Right great toe has flap of skin, small pinpoint open area, no drainage,Sensation intact monofilament exam. Vibratory sensation is diminshed with 128 Hz tuning fork. Assessment & Plan Assessment & Plan (1) Diabetes: Code(s): E11.9 - Type 2 diabetes mellitus without complications Category: Medical Plan: 39-year-old diabetic (awaiting confirmation of type blood work ordered) with a history of foot ulcer with patent circulation, neuropathy and previous poor compliance. She is now taking all of her insulin regularly and has recently met with the Elli Pizano RD and Danielle Welch CDE. Continue current doses of Admelog Increase Tresiba to [address] Liban Bhatt who saw the patient in the ER for cyclic vomiting. For evaluation of gastroparesis. She has a family history of colon cancer in her maternal grandmother and per patient Dr. Bhatt had also recommended she be screened. The patient had an opportunity to ask questions regarding treatment plan. The patient expressed understanding and agreement with the above treatment plan. The patient is aware they should contact our office by phone for worsening glucose readings or for any low blood sugars which may warrant a change in diabetes medication. Compliance is encouraged with medications and any followup testing/consults which may have been ordered. Orders: Referrals Gastroenterology Referral K31.84 - Gastroparesis, R11.15 - Cyclical vomiting syndrome unrelated to migraine Medications: New insulin degludec 66 units (0.33 mL) subcut BEDTIME 30 days 12 mL 6RF Patient Instructions: The patient was counseled to achieve a target A1C of 7% (154 avg). Fasting blood sugars should be 90-130 in the morning and less than 180 two hours after meals. Reviewed the relationship between poor diabetic control and the development of complications. Check your feet daily looking for any signs of infection, drainage, redness, ulceration and seek medical attention if this occurs. Break in shoes gradually and do not wear open-toed shoes or walk stocking footed or barefooted. Coding Level of Care Code Est Pt Level 4 (38568) Complex EM visit Add On G2211 Diagnoses Diabetes E11.9 Time Spent (min) 30 Comment Time spent reviewing labs/provider notes, face to face, chart doc
[2025-01-08 12:41] VITALS: BP 118/68; PULSE 82; BMI 44.6
[2025-01-08 12:49] LABS: Glucose, Whole Blood 307 mg/dL (60-115)
== END 2025-01-08 13:10 | disposition home or self-care (01) ==
LOC: HO.ENCR 12:17
PROVIDERS: Visit Provider Nurse Practitioner Adult Health
DX: E11.9 Type 2 diabetes mellitus without complications (principal)
CPT/HCPCS: 99214; G2211

== ENCOUNTER → 2025-01-08 12:17 | Outpatient (BNVA) | payer OTHER, SELFPAY | PROVIDERS: Visit Provider Nurse Practitioner Adult Health | DX: E11.9 Type 2 diabetes mellitus without complications (principal) | CPT/HCPCS: 82947; 99212 ==

== ENCOUNTER 2025-01-29 14:09 | Inpatient (IN) | payer OTHER, SELFPAY ==
[2025-01-29] VITALS (12 sets, daily range): BP systolic 131–206; BP diastolic 77–119; PULSE 80–127; RESP 12–20; TEMP 36.6–37.1; O2SAT 95–100; BMI 43.5
--- NOTE | ~2025-01-29 | CT_ITS ---
CLINICAL HISTORY: ileus vs SBO CT abdomen and pelvis with contrast Comparison: 01/05/2025 Findings: No consolidation or effusion. There is a fat containing left adrenal 2.7 x 1.9 cm mass, possible adenoma. Otherwise unremarkable gallbladder and solid organs. No urolithiasis. No bowel obstruction, pneumoperitoneum, or pneumatosis. Pelvic contents unremarkable. Normal appendix. No acute fracture. IMPRESSION: No acute findings. This document has been electronically signed by: Varinder Harvey MD on 01/29/2025 21:23:03
--- NOTE | ~2025-01-29 | XR_ITS ---
CLINICAL HISTORY: leukocytosis, rule out pulmonary source of infecti 1 view chest x-ray Comparison: None Findings: The lungs are clear. Normal size heart. No acute fracture. IMPRESSION: 1. No acute findings. This document has been electronically signed by: Jasmeet Carlisle MD on 01/29/2025 20:47:20
--- NOTE | 2025-01-29 14:21 | ED_ITS ---
HPI - General Adult General Chief complaint: Nausea/Vomiting/Diarrhea Stated complaint: NAUSEA/VOMITING, BP 190/118,THEN 212/122 PER EMS Time Seen by Provider: 01/29/25 15:21 Source: patient and EMS Mode of arrival: EMS Limitations: no limitations History of Present Illness ED Provider: KALPESH GREENE PA-C HPI narrative: 39 year old female with pmhx significant for opioid use disorder on methadone, anxiety, depression, HTN, T2DM, gastroparesis and cyclical vomiting syndrome presents to the ED today via EMS for evaluation of nausea and vomiting x2 days. Reports history of similar in the past. Reports daily marijuana use. Has had increased vomiting over the past 2 days after smoking marijuana. She has not smoked since. states her stomach feels hungry , however denies any actual abdominal pain. She has been unable to tolerate any p.o. intake due to vomiting. she has been compliant with her insulin however has not been tolerating her antihypertensives. She also states she is on methadone. She has not been dosed since Sunday (4 days ago) as she has felt ill. Denies fever, chills, urinary symptoms, constipation, diarrhea, flank or back pain. Patient was offered Zofran in triage however declined. She is requesting IV fluids and IV medications . Related Data Home Medications ?Medication ?Instructions ?Recorded ?Confirmed methadone 10 mg/mL oral concentrate 120 mg PO DAILY 07/03/24 01/06/25 dulaglutide 0.75 mg/0.5 mL 0.75 mg subcut QWEEK 01/29/25 subcutaneous pen injector (Trulicity) insulin degludec 200 unit/mL (3 66 unit subcut BEDTIME 01/29/25 mL) subcutaneous pen (Tresiba FlexTouch U-200 insulin) insulin lispro 100 unit/mL See Protocol subcut QIDACHS 01/29/25 subcutaneous pen (Admelog SoloStar U-100 Insulin lispro) trazodone 50 mg tablet 50 mg PO DAILY 01/29/25 Previous Rx's ?Medication ?Instructions ?Recorded lancets 28 gauge (FreeStyle #100 ea 09/11/24 Lancets) FreeStyle Franklin 3 Sprague #1 ea 10/02/24 (blood-glucose,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,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) acetone (urine) test (Ketone Urine #25 ea 10/17/24 Test strips) pen needle, diabetic 32 gauge x #200 ea 10/17/24 5/32 (BD Edel 2nd Gen Pen Needle) blood-glucose sensor (FreeStyle #6 ea 10/24/24 Franklin 3 Plus Sensor device) lisinopril 20 mg tablet 20 mg PO DAILY 90 days #90 tabs 11/19/24 duloxetine 30 mg capsule,delayed 30 mg PO DAILY 90 days #90 caps 11/20/24 release (Cymbalta) amlodipine 5 mg tablet 5 mg PO DAILY #90 tabs 12/01/24 blood sugar diagnostic (FreeStyle #100 ea 01/01/25 Lite Strips) Allergies Allergy/AdvReac Type Severity Reaction Status Date / Time metformin AdvReac Intermediate Nausea Verified 01/29/25 14:27 Review of Systems 2 Review of Systems: Yes all other systems are reviewed and are negative [facility] Past Medical History Attestation statement: The following information was validated with the patient. Source: old records reviewed and nursing notes reviewed Medical History Morbid obesity Neuropathy History of open wound of lower extremity Opioid use disorder Hypertension Sepsis Depression PCOS (polycystic ovarian syndrome) Rash Polysubstance (excluding opioids) dependence, daily use Methadone maintenance therapy patient Anxiety and depression Diabetes Surgical History Hx of removal of cyst Family History Family History Father No problems noted. Mother Hx of diabetes mellitus Sister Heart disease Social History Social History Household Members: Family Household Members Other:: daughter Housing: House Do you presently have visiting nurse or other home services: No Alcohol intake: former Patient Tobacco Use Status: Never used Tobacco Tobacco use type: Cigarette Cigarette Packs Per Day: 3 Cigarettes Per Day: 60.0 Years Smoked: 2 Smoked in Last 30 Days: Yes e-Cigarette/Vaping Use: Never Used Second Hand Smoke Exposure: No Use of substances other than those prescribed or required for medical reasons: Yes Substance Use Type: Marijuana Substance Use Frequency: Occasionally Advance Directives: Yes Advance Directives on File: Yes Advance Directives Date on File: 01/11/22 Do you have a plan to hurt others: No Plan service: No Current occupational status: unemployed Physical Exam ED Vital Signs: Vital Signs - 24 hr 01/29/25 14:23 01/29/25 16:00 01/29/25 16:26 Temperature 97.9 F Pulse Rate 127 H 89 Respiratory Rate 20 17 Blood Pressure 151/119 H 131/108 H 131/108 H Pulse Oximetry 99 99 Oxygen Delivery Method Room Air Room Air 01/29/25 18:05 01/29/25 18:10 01/29/25 18:10 Temperature 98.5 F Pulse Rate 87 84 84 Respiratory Rate 12 Blood Pressure 168/99 H 179/96 H 189/103 H Pulse Oximetry 96 Oxygen Delivery Method Room Air 01/29/25 18:11 01/29/25 18:53 01/29/25 19:33 Temperature Pulse Rate 80 Respiratory Rate Blood Pressure 170/77 H 157/86 H 157/86 H Pulse Oximetry Oxygen Delivery Method BMI result Body Mass Index 43.5 tachycardic, hypertensive General: Well appearing, in no acute distress. Skin: Warm, dry, intact. No rashes or lesions. Head: Normocephalic, atraumatic. EENT: Hearing is intact b/l. Conjunctiva clear. Sclera is anicteric. PERRLA. EOM intact. Moist mucous membranes.? Neck: Supple without LAD Cardiac: Chest wall symmetric. RRR Lungs: Normal respiratory effort without accessory muscle use. CTA bilaterally Abdomen: obese, soft, non-tender, non-distended. No rebound tenderness or guarding. Positive BS x4. no cvat. Back: No midline spinous or paraspinal tenderness. No step off deformity. Ext: Upper and lower extremities atraumatic, without tenderness, deformity, swelling or erythema Neuro: AOx3. Normal speech. Ambulating with steady gait Course Course Course Narrative: This is an RME: Additional HPI, ROS, PE not included below will be deferred to primary provider. RME assessment and note performed by: Maggy Fox PA-C 39 yo female with PMHx of T2DM, cyclical vomiting syndrome presents to the ED due to vomiting. She states she smokes marijuana daily and has had increased vomiting over the passed 2 days. States she is hungry but denies acute abdominal pain. Cannot keep fluids/food down without vomiting. EMS offered Zofran but patient denied. Denies fever, chills. PE:Tachy 127 BPM, non toxic appearing, uncomfortable in triage Plan:Labs Reevaluation(s) Reevaluation #1: 0061 -- informed by RN patient reports feeling restless. given she was last dosed with methadone 3 days ago, feels like she may be withdrawing. she is well appearing. > BP elevated secondary to inability to tolerate antihypertensives x3-4 days. Tolerated amlodipine after Zofran admin. will monitor BP. > spoke with Marivel Bentley - recommending full dose of methadone. RN will be confirming last dose. will order methadone once confirmed. 1752 -- CBC showing leukocytosis to 16.9, appears to be around patient's baseline. ?reactive from vomiting. no anemia, h&h stable. chemistry without acute electrolyte abnormality requiring intervention. no AUDREY. liver function wnl. random glucose 195 - no DKA. beta quant undetectable. negative covid, flu, rsv. > no abdominal pain or diarrhea. exam benign. i do not feel as though imaging is warranted at this time. 1919 -- RN spoke with methadone clinic. patient was dosed Sunday and was given take-homes. She is not due back in the clinic until tomorrow. I discussed with patient. States she is attempted to take her take home methadone on Sunday - was unable to tolerate it. > attempted PO trial. patient unable to tolerate despite zofran, reglan, benadryl > BP improving with amlodipine - now 157/86 > will reach out to hospitalist for admission for cyclical vomiting unable to tolerate PO 1936 -- spoke with hospitalist dr. morejon - admission accepted. patient agreeable. Medications Administered Discontinued Medications Generic Name Dose Route Start Last Admin Trade Name Freq PRN Reason Stop Dose Admin Amlodipine Besylate 5 mg 01/29/25 16:05 01/29/25 16:26 Amlodipine Besylate 5 Mg Tablet PO 01/29/25 16:06 5 mg ONCE ONE Administration Protocol Clonidine HCl 0.1 mg 01/29/25 18:47 01/29/25 19:33 Clonidine Hcl 0.1 Mg Tablet PO 01/29/25 18:48 0.1 mg ONCE ONE Administration Protocol Diphenhydramine HCl 50 mg 01/29/25 18:14 01/29/25 18:44 Diphenhydramine Hcl 50 Mg/Ml Vial IVPUSH 01/29/25 18:15 50 mg ONCE ONE Administration Sodium Chloride 1,000 mls @ 999 mls/hr 01/29/25 15:30 01/29/25 17:59 Ns IV 01/29/25 16:30 Infused .Q1H1M NASH Infusion Metoclopramide HCl 10 mg 01/29/25 18:14 01/29/25 18:41 Metoclopramide Hcl 10 Mg/2 Ml Vial IVPUSH 01/29/25 18:15 10 mg ONCE ONE Administration Ondansetron HCl 4 mg 01/29/25 15:29 01/29/25 15:54 Ondansetron Hcl 4 Mg/2 Ml Vial IVPUSH 01/29/25 15:30 4 mg ONCE ONE Administration Medical Decision Making Medical Decision Making [facility] Narrative: 39 year old female with pmhx significant for opioid use disorder on methadone, anxiety, depression, HTN, T2DM, gastroparesis and cyclical vomiting syndrome presents to the ED today for evaluation of nausea and vomiting x2 days. hypertensive, vitals are otherwise wnl. afebrile. obese abdomen, soft, ND/NT, no rebound or guarding. active bs x4. no cvat b/l. Differential diagnosis includes anemia, electrolyte abnormality, methadone dependence versus withdrawal, cyclical vomiting syndrome, DKA, HHS, AUDREY, hypertensive urgency versus emergency Plan for labs + antiemetics + fluids. Imaging not warranted at this time Differential Diagnosis Differential Diagnoses: The differential diagnosis associated with the presentation includes as above. Admission/Observation Consideration of admission/observation: Escalation of care including admission/observation considered patient admitted to medicine for management of cyclical vomiting Consult Healthcare Provider Management of the patient was discussed with: Hospitalist (dr. morejon) Lab Data [facility] Lab Attestation statement: I reviewed the patient's lab results. as above. 01/29/25 17:18 01/29/25 17:18 Labs: Lab Results 01/29/25 01/29/25 Range/Units 15:41 17:18 WBC 16.9 H (4.8-10.8) X10*3/uL RBC 4.66 (4.20-5.50) X10*6/uL Hgb 12.5 (12.0-16.0) g/dl Hct 38.0 (37.0-47.0) % MCV 81.5 (80.0-98.0) fL MCH 26.8 L (27.0-33.0) pg MCHC 32.9 (31.0-35.0) g/dl RDW 13.7 (11.0-16.0) % Plt Count 409 H (160-400) X10*3/uL MPV 8.2 L (9.4-12.3) fL Immature Gran % (Auto) 1.4 H (0.0-0.4) % Neut % (Auto) 85.7 H (45-73) % Lymph % (Auto) 9.0 L (20-40) % Randolph % (Auto) 3.5 (2-11) % Eos % (Auto) 0.1 (0-4) % Baso % (Auto) 0.3 (0-2) % Lymph # (Auto) 1.5 (1.2-4.9) X10*3/uL Randolph # (Auto) 0.6 (0.1-1.2) X10*3/uL Eos # (Auto) 0.0 (0.0-0.4) X10*3/uL Baso # (Auto) 0.1 (0.0-0.2) X10*3/uL Abs Immat Gran (auto) 0.23 H (0.00-0.03) X10*3/uL Absolute Neuts (auto) 14.5 H (2.0-8.3) x10*3/uL Absolute Nucleated RBC 0.000 (0.0-0.012) X10*3/uL Nucleated RBC % (auto) 0.0 (0.0-0.2) /100WBC Sodium 141 (135-145) mmol/L Potassium 3.8 (3.3-5.1) mmol/L Chloride 104 (96-108) mmol/L Carbon Dioxide 26 (22-29) mmol/L Anion Gap 15 (12-20) BUN 9 (9-16) mg/dL Creatinine 0.71 (0.5-1.4) mg/dL Estim Creat Clear Calc 153.1 Estimated GFR > 60 POC Glucose 206 H (60-115) mg/dL Random Glucose 195 H (60-115) mg/dL Calcium 9.5 D (8.4-10.2) mg/dL Magnesium 1.8 (1.6-2.6) mg/dL Total Bilirubin 0.4 (0.0-1.0) mg/dL AST 28 (5-31) U/L ALT 20 (0-31) U/L Alkaline Phosphatase 99 (39-117) U/L Total Protein 8.3 H (6.5-8.0) g/dL Albumin 4.1 (3.5-5.0) g/dL Beta HCG, Quant < 2 mIU/mL External Record Review External record reviewed: Inpatient record Chronic Conditions Patient?s care impacted by: Hypertension and Other (methadone dependence) Social Determinants Patient?s care significantly limited by Social Determinants of Health including: Alcoholism and drug addiction in family and Other Social Determinant of Health Critical Care Time Critical Care Time Critical Care Time: Yes Total Critical Care Time: 32 Attestation: Critical care time in the amount of 32 minutes has been provided to the patient in terms of direct patient care, frequent reevaluation, consultation with hospitalist, review and interpretation of medical data and results, and management of potentially life-threatening conditions. This is all outside of any medical procedures. Discharge Plan Discharge Clinical Impression: Cyclical vomiting Patient Disposition: Admitted As Inpatient Prescriptions: No Action methadone 10 mg/mL Concentrate 120 mg PO DAILY (DME) FreeStyle Franklin 3 Sprague Misc See Rx Instructions .ROUTE .MEDSUPPLY Qty: 1 0RF Rx Instructions: for use with glucose sensor lisinopril 20 mg tablet 20 mg PO DAILY 90 Days Qty: 90 1RF amlodipine 5 mg tablet 5 mg PO DAILY Qty: 90 1RF (DME) FreeStyle Lite Strips Strip See Rx Instructions .Route Qty: 100 6RF Rx Instructions: As directed tests 3 X/day trazodone 50 mg tablet 50 mg PO DAILY Trulicity 0.75 mg/0.5 mL pen injector 0.75 mg subcut QWEEK insulin lispro [Admelog SoloStar U-100 Insulin] 100 unit/mL insulin pen See Protocol subcut QIDACHS MDD 130 Protocol: Insulin Correction Scale Less than or equal to 110 ---- Give (units): 6 111 to 150 Give (units): 18 151 to 200 Give (units): 22 201 to 250 Give (units): 24 251 to 300 Give (units): 28 301 to 350 Give (units): 30 Greater than 350 Give (units): 32 Call MD if Blood Glucose > : 350 Rx Instructions: 80-100 6 units 101-150 18 units 151-200 22 units 201-250 24 units 251- 300 28 units 301-350 30 units over 350 32 units over 300 check ketones subcutaneously 4 times a day; insulin degludec [Tresiba FlexTouch U-200] 200 unit/mL (3 mL) insulin pen 66 unit subcut BEDTIME (DME) lancets [FreeStyle Lancets] 28 gauge misc See Rx Instructions .ROUTE .MEDSUPPLY Qty: 100 1RF Rx Instructions: 3 times per day (DME) Ketone Urine Test Strip See Rx Instructions .ROUTE .MEDSUPPLY Qty: 25 2RF Rx Instructions: prn qid glucose over 250, nausea, vomiting illness (DME) pen needle, diabetic [BD Edel 2nd Gen Pen Needle] 32 gauge x 5/32 needle See Rx Instructions .ROUTE .MEDSUPPLY Qty: 200 11RF Rx Instructions: qid (DME) FreeStyle Franklin 3 Plus Sensor Device See Rx Instructions .ROUTE .MEDSUPPLY Qty: 6 3RF Rx Instructions: every 15 days for continuous use duloxetine [Cymbalta] 30 mg capsule,delayed release(DR/EC) 30 mg PO DAILY 90 Days Qty: 90 0RF Print Language: Bahraini
[2025-01-29 15:43] LABS: Glucose, Whole Blood 206 mg/dL (60-115)
[2025-01-29] MEDS: ondansetron HCL 4 MG/2 ML VIAL IVPUSH ×2 (15:54→23:21)
--- NOTE | 2025-01-29 15:55 | PC.NURSE ---
Delay of IV access due to difficulty obtaining access, Ultrasound guided DOCTOR NATUROPATHIC notified this nurse that, pt now has access in upper right arm.Ultra sound DOCTOR NATUROPATHIC notified this Nurse last time patient was here had difficulty obtaining IV access with ultrasound as well.
[2025-01-29] MEDS: 0.9 % Sodium Chloride 1,000 ML 999 ML IV (15:58)
[2025-01-29] MEDS: amLODIPine Besylate 5 MG TABLET PO (16:26)
[2025-01-29 17:22] LABS: MANUAL DIFF FLAG NO
[2025-01-29 17:23] LABS: Basophils Absolute Auto 0.1 X10*3/uL (0.0-0.2); Basophils Percent Auto 0.3 % (0-2); Eosinophils Percent Auto 0.1 % (0-4); Hemoglobin 12.5 g/dl (12.0-16.0); Imm Gran Abs Auto 0.23 X10*3/uL (0.00-0.03); Imm Gran Pct Auto 1.4 % (0.0-0.4); Lymphocytes Absolute Auto 1.5 X10*3/uL (1.2-4.9); Mean Corpuscular HGB Conc 32.9 g/dl (31.0-35.0); Mean Corpuscular Hemoglobin 26.8 pg (27.0-33.0); Mean Corpuscular Volume 81.5 fL (80.0-98.0); Mean Platelet Volume 8.2 fL (9.4-12.3); Monocytes Absolute Auto 0.6 X10*3/uL (0.1-1.2); Monocytes Percent Auto 3.5 % (2-11); Neutrophils Absolute Auto 14.5 x10*3/uL (2.0-8.3); Neutrophils Percent Auto 85.7 % (45-73); Platelet Count 409 X10*3/uL (160-400); Red Blood Count 4.66 X10*6/uL (4.20-5.50); Red Cell Distribution Width 13.7 % (11.0-16.0); White Blood Count 16.9 X10*3/uL (4.8-10.8)
[2025-01-29 17:38] LABS: Alanine Aminotransferase 20 U/L (0-31); Albumin Level 4.1 g/dL (3.5-5.0); Alkaline Phosphatase 99 U/L (39-117); Anion Gap 15 (12-20); Aspartate Amino Transferase 28 U/L (5-31); Bilirubin Total 0.4 mg/dL (0.0-1.0); Blood Urea Nitrogen 9 mg/dL (9-16); Calcium 9.5 mg/dL (8.4-10.2); Carbon Dioxide 26 mmol/L (22-29); Chloride 104 mmol/L (96-108); Creatinine Clr Calc Pharmacy 153.1; Estimated Glomerular Filt Rate > 60; Glucose Random 195 mg/dL (60-115); Magnesium 1.8 mg/dL (1.6-2.6); Potassium 3.8 mmol/L (3.3-5.1); Sodium 141 mmol/L (135-145); Total Protein 8.3 g/dL (6.5-8.0)
[2025-01-29 17:45] LABS: HCG Quantitative < 2 mIU/mL
[2025-01-29] MEDS: Metoclopramide HCl 10 MG/2 ML VIAL IVPUSH (18:41)
[2025-01-29] MEDS: diphenhydrAMINE HCL 50 MG/ML VIAL IVPUSH (18:44)
--- NOTE | 2025-01-29 19:08 | PC.NURSE ---
This nurse called [facility] Yes[facility], after receiving a call back from Rosey MARADIAGA, I received a last dose verification on this patient. PT last took 90 mg of Methadone on 01/23/2025 @ 1203 with 6 take home doses to last until 01/29/2025. Form was faxed to pharmacy for records.
[2025-01-29] MEDS: cloNIDine HCL 0.1 MG TABLET PO (19:33)
--- NOTE | 2025-01-29 19:38 | ECG_ITS ---
Test Reason : HTN Blood Pressure : */* mmHG Vent. Rate : 98 BPM Atrial Rate : 98 BPM P-R Int : 130 ms QRS Dur : 86 ms QT Int : 352 ms P-R-T Axes : 47 9 46 degrees QTcB Int : 449 ms Normal sinus rhythm with sinus arrhythmia Normal ECG When compared with ECG of 04-Jan-2025 20:46, No significant change was found Referred By: [place] Electronically Signed By: DENNIS RAY MD
--- NOTE | 2025-01-29 19:39 | PM.IMHP ---
History of Present Illness Date of Service: 01/29/25 Attending physician on admission: [place] Chief Complaint: N/V Received admission request 19:26 PM. Patient is a 39-year-old female with past history of morbid obesity, PCOS, opioid use disorder now on methadone 90 mg daily, history of alcohol use in her 20s, recent UTI, diverticulosis, gallbladder sludge, left adrenal gland nodule, recent colitis, Hepatic steatosis, chronic marijuana use presents to the emergency department with persistent and initially intractable nausea and vomiting. Patient states her symptoms started on Sunday. Prior to that, patient was feeling well. Patient has not been using marijuana for the last 3 days and has also not been able to use her methadone for the last 3 days due to the nausea and vomiting. Patient denies any withdrawal symptoms. patient denies any chest pain or tachycardia. patient is not diaphoretic. Patient has not had a bowel movement in 3 days as well. Patient denies any chest pain, shortness of breath at rest or with exertion, headache or visual changes. Patient has not had any known fever or chills. Patient is reporting mild abdominal tenderness in the mid epigastric region. Patient initially stated she was not taking a GLP 1 but her med list contains Trulicity. Lactic acid ordered stat. Bowel sounds diminished throughout. Concern for possible ileus versus bowel obstruction, noting pt is possibly on GLP-1. CT scan abd and pelvis ordered stat with IV contrast. Patient was seen 01/05/2025 in the emergency department and was told that she had a urinary tract infection. Patient received antibiotics at that point. In addition CT scan noted diverticulosis without diverticulitis, gallbladder sludge, distal colitis, left adrenal gland nodule 2.4 cm, and fatty liver. CXR, UA with reflex also ordered to rule out other sources of infection noting pt's WBCs are 16.7, PLTs elevated 409K. Blood cultures X2 ordered. Review of Systems Review of Systems: patient reports feeling cold, with abdominal tenderness in the mid epigastric area. Patient denies any chest pain or shortness of breath at rest. patient is not having any palpitations or sweating.Patient was having some shortness of breath with exertion. Patient denies any diarrhea. Patient has not had a bowel movement in at least 3 days. Patient attributes this to not eating well. Patient denies any headache, visual changes or dysphagia. Yes all other systems are reviewed and are negative PMFSH Medical History Morbid obesity Neuropathy History of open wound of lower extremity Opioid use disorder Hypertension Sepsis Depression PCOS (polycystic ovarian syndrome) Rash Polysubstance (excluding opioids) dependence, daily use Methadone maintenance therapy patient Anxiety and depression Diabetes Cognitive capacity: Alert and orientated x3 Functional capacity: independent ambulation Patient : No ( test negative) Family History Father No problems noted. Mother Hx of diabetes mellitus Sister Heart disease Surgical History Hx of removal of cyst Social History Household Members: Family Household Members Other:: daughter Housing: House Do you presently have visiting nurse or other home services: No Alcohol intake: former Patient Tobacco Use Status: Never used Tobacco Tobacco use type: Cigarette Cigarette Packs Per Day: 3 Cigarettes Per Day: 60.0 Years Smoked: 2 Smoked in Last 30 Days: Yes e-Cigarette/Vaping Use: Never Used Second Hand Smoke Exposure: No Use of substances other than those prescribed or required for medical reasons: Yes Substance Use Type: Marijuana Substance Use Frequency: Occasionally Advance Directives: Yes Advance Directives on File: Yes Advance Directives Date on File: 01/11/22 Do you have a plan to hurt others: No Plan Patient : No ( test negative) service: No Current occupational status: unemployed Ebola Risk: Travel/Contact With Anyone From Affected Area/s: No Has Patient Experienced Ebola Symptoms: No Meds Allergies Allergy/AdvReac Type Severity Reaction Status Date / Time metformin AdvReac Intermediate Nausea Verified 01/29/25 14:27 Active Medications: Current Medications Acetaminophen (Acetaminophen 325 Mg Tablet) 650 mg PO Q6H PRN PRN Reason: Pain, Mild 1-3,fever,headache Sodium Chloride (0.9 % Sodium Chloride Flush 3 Ml Syringe) 3 ml IVFLUSH QSHIFT [facility] Home Medications ?Medication ?Instructions ?Recorded ?Confirmed ?Last Taken ?Type methadone 10 mg/mL oral concentrate 90 mg PO DAILY 07/03/24 01/29/25 12/31/24 History esomeprazole magnesium 20 mg 20 mg PO DAILY@0630 01/29/25 01/29/25 01/26/25 History capsule,delayed release (Nexium) insulin degludec 200 unit/mL (3 66 unit subcut BEDTIME 01/29/25 01/29/25 01/26/25 History mL) subcutaneous pen (Tresiba FlexTouch U-200 insulin) insulin lispro 100 unit/mL See Rx Instructions .Route .COMPLEX 01/29/25 01/29/25 01/26/25 History subcutaneous pen (Admelog SoloStar U-100 Insulin lispro) Physical Exam Vital Signs and Narrative: Vital Signs: Last Vital Signs Temp 98.5 F 01/29/25 18:05 Pulse 80 01/29/25 18:11 Resp 12 01/29/25 18:05 BP 157/86 H 01/29/25 19:33 Pulse Ox 96 01/29/25 18:05 O2 Del Method Room Air 01/29/25 18:05 BMI result Body Mass Index 43.5 alert and orientated X3, Fatigued but able to answer questions regarding HPI. Neuro: CN II-X11 intact, no deficits, visual acuity intact EYES: PERRLA, EOM intact, Conjunctiva pink, sclera nonicteric ENT: hearing intact, no issues with swallowing, uvula midline, lips moist, nares patent no epistaxis Cardiac: S1 S2 RRR, no murmur, no JVD, no edema in Lower ext Pulmonary: lungs diminished bilaterally Abdominal: BS hypoactive throughout, mid epigastric tenderness noted on exam MSK: strength 5/5 upper and lower extremities : no CVA tenderness no bladder distension Extremities: no edema in lower extremities, PT and DP pulses palpable +2 Psych: mood stable, judgement and insight good skin: intact Results Labs 01/29/25 17:18 01/29/25 17:18 Labs: Laboratory Results - last 24 hr 01/29/25 01/29/25 15:41 17:18 MCV 81.5 MCH 26.8 L MCHC 32.9 RDW 13.7 Plt Count 409 H MPV 8.2 L Immature Gran % (Auto) 1.4 H Neut % (Auto) 85.7 H Lymph % (Auto) 9.0 L [place] % (Auto) 3.5 Eos % (Auto) 0.1 Baso % (Auto) 0.3 Lymph # (Auto) 1.5 [place] # (Auto) 0.6 Eos # (Auto) 0.0 Baso # (Auto) 0.1 Abs Immat Gran (auto) 0.23 H Absolute Neuts (auto) 14.5 H Absolute Nucleated RBC 0.000 Nucleated RBC % (auto) 0.0 Anion Gap 15 Estim Creat Clear Calc 153.1 Estimated GFR > 60 POC Glucose 206 H Random Glucose 195 H Calcium 9.5 D Magnesium 1.8 Total Bilirubin 0.4 AST 28 ALT 20 Alkaline Phosphatase 99 Total Protein 8.3 H Albumin 4.1 Beta HCG, Quant < 2 ECG Prior ECG tracings: not available for review ( ordered and pending) Assessment and Plan (1) Intractable nausea and vomiting: Status: Acute Plan Patient is a 39-year-old female with past history of morbid obesity, PCOS, opioid use disorder now on methadone 90 mg daily, history of alcohol use in her 20s, recent UTI, diverticulosis, gallbladder sludge, left adrenal gland nodule, recent colitis, Hepatic steatosis, chronic marijuana is being admitted for intractable nausea and vomiting. Possible differentials include methadone withdrawal, cannabis induced hyperemesis syndrome versus ileus versus bowel obstruction as patient is on a GLP 1, Trulicity. patient has a notable leukocytosis, no fever. patient has not had any methadone in 72 hours due to the nausea and vomiting. There is a strong likelihood that she is withdrawing. Intracractable N/V - Differential Methadone withdrawal, possible marijuana induced Hyperemesis syndrome - ileus, SBO ruled out via CT scan - Zofran most effective for controlling patient's symptoms - CT scan of the abdomen and pelvis negative today for acute findings - Lactic acid 1.6, CRP elevated 2.16 - Noted leukocytosis of 16.9, no fever or chills, positive for thrush - NPO currently - continue antiemetics *Possible methadone withdrawal -COWS ordered, valium IV prn, dilaudid 1 mg once, will resume methadone dose at a 20% reduction per pharmacy when pt is able to tolerate. -Telemetry ordered *Possible cannabis induced hyperemesis syndrome - Ordered capsaicin cream p.r.n. topically to the abdomen if symptoms are related to marijuana induced hyperemesis syndrome Leukocytosis - Infectious disease workup initiated with chest x-ray, lactic acid, CT scan of the abdomen and pelvis as patient had evidence of distal colitis on previous ED visit 01/05/2025: Chest x-ray negative for any acute findings, CT scan negative for any acute findings. Lactic acid 1.6. -UA suspicious for UTI, patient is started on ceftriaxone 1 g daily - blood cultures x2 pending - no evidence of sepsis at this time UTI - UA highly suspicious for UTI, patient is started on ceftriaxone 1 g IV daily Thrush -Nystatin ordered -Pt cannot do fluconazole due to methadone -Pt requesting HIV testing, ordered for a.m. HTN - patient is continuing her amlodipine prior to admission - IV hydralazine 10 mg q.6 hours PRN for systolic greater than 160 - patient also received 1 dose of clonidine which was effective Insulin-dependent diabetes mellitus -Sliding scale insulin -Patient currently NPO, diabetic diet when patient can tolerate p.o. intake -Pt is not taking trulicity via MED REC -Noted thrush, oral tx started Chronic marijuana use - patient has opted to stop using marijuana due to her hardships - no marijuana use in over 72 hours - patient denies history of hot showers and cyclical vomiting Diverticulosis without diverticulitis -noted on previous CT scan 01/05/25, CT today no evidence of diverticulitis -reviewed diet regimen to avoid food with seeds Left adrenal nodule 2.4 cm -follow up with PCP as an outpatient Gallbladder sludge -no gallstones seen on exam -reviewed s/s of cholecystitis with pt and when to seek emergent care -CT neg today for cholelithiasis PCOS -currently stable, no chronic tx in place -follow with PCP, 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
[2025-01-29 19:50] LABS: C Reactive Protein 2.16 mg/dL (< or = 0.50)
--- NOTE | 2025-01-29 19:52 | HE.PHANOTE ---
METHADONE METHADONE VERIFICATION FORM RECEIVED FROM LAURA. RN CONTACTED [facility] ([phone]) AND LAST DOSE OF 90 MG WAS GIVEN AT CLINIC ON 01/23/25 BUT PATIENT WAS ALSE GIVEN 6 TAKE HOME BOTTLES TO LAST UNTIL 01/29/25. RN SPOKE WITH HANK AT CLINIC
--- NOTE | 2025-01-29 20:03 | PHA.MEDREC ---
Addendum entered by Nini [facility] 01/29/25 20:08: REVIEWED Original Note: Pharmacy Consult ? Medication Reconciliation Pharmacy has completed the medication reconciliation. Pt confirmed her medications. Pt stated she never started taking the Trulicity. She confirmed her Methadone taking 90mg daily but has not been able to take that along with all her other medications since Sunday, including her insulins.
[2025-01-29 20:24] LABS: Lipase 14 U/L (8-78)
--- NOTE | 2025-01-29 20:31 | PC.NURSE ---
Report given to HIREN Silver. Pt. to go to room ed overflow 6.
[2025-01-29 20:34] LABS: Lactic Acid 1.6 mmol/L (0.5-2.0)
--- NOTE | 2025-01-29 20:34 | PC.NURSE ---
Informed CT scan, Chele that pt's IV was able to be flushed x 2, without issue.
[2025-01-29] MEDS: iohexoL 350 MG/ML 100 ML INFUS..BTL IV (20:52)
[2025-01-29 20:57] LABS: Appearance Urine Cloudy; Color Urine Yellow; Glucose Urine UA Negative (Negative); Leukocyte Esterase Urine Trace (Negative); Nitrite Urine Negative (Negative); Specific Gravity - Urine 1.025 (1.005-1.025); UMIC TRIGGER UA YES; Urine Blood Trace (Negative); Urine Ketones 80 mg/dL (Negative); Urine Protein 30 (1+) mg/dL (Neg-Trace)
[2025-01-29 21:03] LABS: Bacteria Urine 2+ (None Seen); Hyaline Casts Urine 0-2 /LPF (0-2); RBC Urine >20 /HPF (0-2)
[2025-01-29 21:12] LABS: Glucose, Whole Blood 233 mg/dL (60-115)
[2025-01-29] MEDS: Insulin Lispro 100 UNIT/ML 3 ML VIAL SUBCUT (21:16)
[2025-01-29] MEDS: Enoxaparin Sodium 40 MG/0.4 ML SYRINGE SUBCUT (21:17)
[2025-01-29] MEDS: HYDROmorphone HCl 1 MG/ML SYRINGE IVPUSH (22:43)
--- NOTE | 2025-01-29 23:15 | PC.NURSE ---
Assumed care of this Pt at 2244. Pt brought back over from OF. ABX admin delayed, Pt very difficult stick. Provider Aline at bedside attempting ultrasound guided IV.
--- NOTE | 2025-01-29 23:20 | PC.NURSE ---
20G IV to left inner upper arm placed by Dr. Mireles via ultrasound. Blood cultures obtained and sent to lab. Meds given per NOV.
--- NOTE | 2025-01-29 23:21 | PC.NURSE ---
Pt was moved to overflow, however provider wants continuous telemetry monitoring. Spoke with flake drier and pt to be moved back to main ED and placed on tele monitor.
[2025-01-29] MEDS: Nystatin Oral Susp 500,000 UNIT/5 ML ORAL.SUSP 400000 UNIT PO (23:22)
[2025-01-29] MEDS: Pantoprazole Sodium 40 MG/10 ML VIAL IVPUSH (23:23)
[2025-01-29] MEDS: cefTRIAXone sodium 1 GM VIAL IVPUSH (23:23)
[2025-01-29] MEDS: 0.9 % Sodium Chloride Flush 3 ML SYRINGE IVFLUSH (23:29)
[2025-01-30] VITALS (11 sets, daily range): BP systolic 111–183; BP diastolic 61–98; PULSE 77–99; RESP 10–18; TEMP 36.3–37.1; O2SAT 94–97; BMI 43.3
[2025-01-30 01:16] LABS: Glucose, Whole Blood 231 mg/dL (60-115)
[2025-01-30] MEDS: Insulin Lispro 100 UNIT/ML 3 ML VIAL SUBCUT ×4 (02:16→21:22)
[2025-01-30] MEDS: Capsaicin 0.025% Cream 60 GM TUBE 1 APPL TOPICAL ×2 (02:17→12:52)
--- NOTE | 2025-01-30 02:22 | PC.NURSE ---
Pt reports nausea, Zostrix applied per NOV.
[2025-01-30 05:48] LABS: Basophils Percent Auto 0.2 % (0-2); Hematocrit 36.6 % (37.0-47.0); Hemoglobin 12.2 g/dl (12.0-16.0); Imm Gran Abs Auto 0.19 X10*3/uL (0.00-0.03); Lymphocytes Percent Auto 16.2 % (20-40); MANUAL DIFF FLAG NO; Mean Corpuscular HGB Conc 33.3 g/dl (31.0-35.0); Mean Corpuscular Hemoglobin 27.1 pg (27.0-33.0); Mean Corpuscular Volume 81.3 fL (80.0-98.0); Mean Platelet Volume 8.5 fL (9.4-12.3); Monocytes Percent Auto 5.5 % (2-11); Neutrophils Absolute Auto 14.3 x10*3/uL (2.0-8.3); Neutrophils Percent Auto 77.1 % (45-73); Platelet Count 401 X10*3/uL (160-400); White Blood Count 18.5 X10*3/uL (4.8-10.8)
--- NOTE | 2025-01-30 05:53 | PC.NURSE ---
Pt aware requesting zofran, informed of time. Pt ambulated to BR independently with steady gait.
[2025-01-30] MEDS: Pantoprazole Sodium 40 MG/10 ML VIAL IVPUSH (06:04)
[2025-01-30] MEDS: diazePAM 10 MG/2 ML CARTRIDGE IVPUSH (06:12)
--- NOTE | 2025-01-30 06:19 | PC.NURSE ---
Addendum entered by Anisha Chiarez 01/30/25 08:13: Pt reports effectiveness to meds. Original Note: Pt reports nausea, ABD pain and body aches, Pt medicated per MAR.
[2025-01-30 06:33] LABS: Alanine Aminotransferase 14 U/L (0-31); Alkaline Phosphatase 92 U/L (39-117); Anion Gap 18 (12-20); Aspartate Amino Transferase 19 U/L (5-31); Bilirubin Total 0.4 mg/dL (0.0-1.0); Blood Urea Nitrogen 11 mg/dL (9-16); Calcium 9.4 mg/dL (8.4-10.2); Carbon Dioxide 24 mmol/L (22-29); Chloride 103 mmol/L (96-108); Creatinine Clr Calc Pharmacy 143.1; Estimated Glomerular Filt Rate > 60; Glucose Random 188 mg/dL (60-115); Potassium 3.5 mmol/L (3.3-5.1); Sodium 141 mmol/L (135-145)
[2025-01-30] MEDS: 0.9 % Sodium Chloride Flush 3 ML SYRINGE IVFLUSH ×3 (07:01→21:23)
[2025-01-30 08:19] LABS: HIV AB/AG Nonreactive (Nonreactive); HIV Num 1 0.05 S/CO (0.00-0.99)
[2025-01-30 08:28] LABS: Glucose, Whole Blood 200 mg/dL (60-115)
[2025-01-30] MEDS: amLODIPine Besylate 5 MG TABLET PO (08:39)
[2025-01-30] MEDS: Nystatin Oral Susp 500,000 UNIT/5 ML ORAL.SUSP 400000 UNIT PO ×4 (08:39→21:21)
[2025-01-30] MEDS: lisinopriL 20 MG TABLET PO (08:39)
[2025-01-30] MEDS: DULoxetine HCl 30 MG CAPSULE.DR PO (08:40)
[2025-01-30] MEDS: methADONE HCl 20 MG/2 ML ORAL.CONC 65 MG PO (08:40)
[2025-01-30] MEDS: ondansetron HCL 4 MG/2 ML VIAL IVPUSH ×2 (08:47→21:22)
--- NOTE | 2025-01-30 08:52 | PC.NURSE ---
PO meds given. Pt instantly vomited methadone dose. Medicated with IV zofran per NOV.
--- NOTE | 2025-01-30 09:13 | PC.NURSE ---
Admit note: Pt hx of opioid use disorder now on methadone 90 mg daily. Prior to that, patient was feeling well. Patient has not been using marijuana for the last 3 days and has also not been able to use her methadone for the last 3 days due to the nausea and vomiting. Plant to admit for Intracractable N/V - Differential Methadone withdrawal, possible marijuana induced Hyperemesis syndrome - ileus, SBO ruled out via CT scan. - Zofran most effective for controlling patient's symptoms - CT scan of the abdomen and pelvis negative today for acute findings - Lactic acid 1.6, CRP elevated 2.16 - Noted leukocytosis of 16.9, no fever or chills, positive for thrush - NPO currently - continue antiemetics -COWS ordered, valium IV prn, dilaudid 1 mg once, will resume methadone dose at a 20% reduction per pharmacy when pt is able to tolerate. -Telemetry ordered Pt A&Ox3, bilateral 20G ultrasound guided IVs to upper arms. Pt ambulates independently to .
--- NOTE | 2025-01-30 09:25 | MHC.CM.PN ---
Patient lives with her Adult Daughter and her Friend/Aaliyah is her HCP. Patient obtains her Methadone from [facility] and home/resume said services is the goal; CM has initiated and will follow for dc planning. Patient has no PCP and she will require assist with transport at time of dc.
[2025-01-30] MEDS: Lactated Ringers 1,000 ML 125 ML IVCONT ×2 (09:27→16:54)
--- NOTE | 2025-01-30 09:32 | PC.NURSE ---
this RN assumed care of patient at this time. Patient resting on stretcher w/ eyes closed, skin pwd, resp even and non labored. awakens easily to verbal stimuli. IV fluids started per NOV, patient then back to sleep. appears comfortable at this time. awaiting room assignment for admission.
[2025-01-30 10:44] LABS: Estimated Average Glucose 200 mg/dL; Hemoglobin A1C 223.5878 umol/L; Hemoglobin A1c % 8.6 % (<6.0); Total Hemoglobin (HGBA1C) 3196.3243 umol/L
--- NOTE | 2025-01-30 12:20 | HO.PM.IMPN ---
Subjective Subjective Date of Service: 01/30/25 Interval History: vomited her methadone this AM c/o generalized abd discomfort Review of Systems Review of Systems: Yes all other systems are reviewed and are negative Physical Exam Vital Signs: Vital Signs: Last Vital Signs Temp 98.8 F 01/30/25 04:00 Pulse 99 01/30/25 07:02 Resp 14 01/30/25 07:02 BP 142/73 H 01/30/25 08:39 Pulse Ox 94 01/30/25 07:02 O2 Del Method Room Air 01/30/25 07:02 BMI result Body Mass Index 43.5 Gen: in no acute distress HEENT: sclera anicteric, moist mucus membranes Neck: supple Lungs: clear to auscultation bilaterally Heart: regular rate and rhythm, no murmurs Abd: soft, obese, generalized tenderness, non-distended Ext: no edema Skin: warm/well-perfused Neuro: alert and oriented x3, no focal findings Psych: appropriate affect Objective Data Active Medications Acetaminophen (Acetaminophen 325 Mg Tablet) 650 mg PO Q6H PRN PRN Reason: Pain, Mild 1-3,fever,headache Albuterol/Ipratropium (Albuterol/Iprat 2.5/0.5mg 3 Ml Ampul.Neb) 3 ml INHALE Q4H PRN PRN Reason: Shortness of Breath/Wheezing Amlodipine Besylate (Amlodipine Besylate 5 Mg Tablet) 5 mg PO DAILY NASH; Protocol Last Admin: 01/30/25 08:39 Dose: 5 mg Documented By: SERGIO Calcium Carbonate (Calcium Carbonate 750 Mg Tab.Chew) 750 mg PO Q4H PRN PRN Reason: Heartburn Capsaicin (Capsaicin 0.025% Cream 60 Gm Tube) 1 appl TOPICAL TID PRN; Protocol PRN Reason: Nausea and Vomiting Last Admin: 01/30/25 02:17 Dose: 1 appl Documented By: SERGIO Ceftriaxone Sodium (Ceftriaxone Sodium 1 Gm Vial) 1 gm IVPUSH Q24H NASH Last Admin: 01/29/25 23:23 Dose: 1 gm Documented By: SERGIO Dextrose (Dextrose 50 % 25 Gm/50 Ml Syringe) 25 gm IVPUSH Q15M PRN; Protocol PRN Reason: per Hypoglycemia Standing Ord. Diazepam (Diazepam 10 Mg/2 Ml Cartridge) 10 mg IVPUSH Q4H PRN PRN Reason: anxiety/restlessness Last Admin: 01/30/25 06:12 Dose: 10 mg Documented By: SERGIO Duloxetine HCl (Duloxetine Hcl 30 Mg Capsule.Dr) 30 mg PO DAILY [facility] Last Admin: 01/30/25 08:40 Dose: 30 mg Documented By: SERGIO Enoxaparin Sodium (Enoxaparin Sodium 40 Mg/0.4 Ml Syringe) 40 mg SUBCUT Q24H [facility] Last Admin: 01/29/25 21:17 Dose: 40 mg Documented By: MICHAEL Glucose (Glucose Gel 15 Gm Gel..Gram.) 15 gm PO Q15M PRN; Protocol PRN Reason: per Hypoglycemia Standing Ord. Hydralazine HCl (Hydralazine Hcl 20 Mg/Ml Vial) 10 mg IVPUSH Q6H PRN; Protocol PRN Reason: SBP > 160 Lactated Ringer's (Lr) 1,000 mls @ 125 mls/hr IVCONT .Q8H [facility] Last Admin: 01/30/25 09:27 Dose: 125 mls/hr Documented By: JONNY Insulin Human Lispro (Insulin Lispro 100 Unit/Ml 3 Ml Vial) 0 unit SUBCUT Q6H [facility]; Protocol Last Admin: 01/30/25 08:39 Dose: 2 unit Documented By: SERGIO Lisinopril (Lisinopril 20 Mg Tablet) 20 mg PO DAILY [facility]; Protocol Last Admin: 01/30/25 08:39 Dose: 20 mg Documented By: SERGIO Magnesium Hydroxide (Milk Of Magnesia 30 Ml Oral.Susp) 30 ml PO DAILY PRN PRN Reason: Constipation Melatonin (Melatonin 3 Mg Tablet) 6 mg PO BEDTIME PRN PRN Reason: Insomnia Methadone HCl (Methadone Hcl 20 Mg/2 Ml Oral.Conc) 65 mg PO DAILY [facility] Last Admin: 01/30/25 08:40 Dose: 65 mg Documented By: SERGIO Co-signed By: TOMI Metoclopramide HCl (Metoclopramide Hcl 10 Mg/2 Ml Vial) 5 mg IVPUSH Q4H PRN PRN Reason: n/v not relieved by zofran Nystatin (Nystatin Oral Susp 500,000 Unit/5 Ml Oral.Susp) 400,000 unit PO QID [facility]; Protocol Last Admin: 01/30/25 08:39 Dose: 400,000 unit Documented By: SERGIO Ondansetron HCl (Ondansetron Hcl 4 Mg/2 Ml Vial) 4 mg IVPUSH Q4H PRN PRN Reason: Nausea and Vomiting Pantoprazole Sodium (Pantoprazole Sodium 40 Mg/10 Ml Vial) 40 mg IVPUSH DAILY@0630 [facility] Last Admin: 01/30/25 06:04 Dose: 40 mg Documented By: SERGIO Senna (Sennosides 8.6 Mg Tablet) 17.2 mg PO BEDTIME [facility] Last Admin: 01/29/25 21:19 Dose: Not Given Documented By: MICHAEL Non-Admin Reason: Patient Refused Sodium Chloride (0.9 % Sodium Chloride Flush 3 Ml Syringe) 3 ml IVFLUSH QSHIFT [facility] Last Admin: 01/30/25 07:01 Dose: 3 ml Documented By: SERGIO Labs 01/30/25 05:41 01/30/25 06:12 Labs: Laboratory Results - last 24 hr 01/29/25 01/29/25 01/29/25 15:41 17:18 20:11 MCV 81.5 MCH 26.8 L MCHC 32.9 RDW 13.7 Plt Count 409 H MPV 8.2 L Immature Gran % (Auto) 1.4 H Neut % (Auto) 85.7 H Lymph % (Auto) 9.0 L [place] % (Auto) 3.5 Eos % (Auto) 0.1 Baso % (Auto) 0.3 Lymph # (Auto) 1.5 [place] # (Auto) 0.6 Eos # (Auto) 0.0 Baso # (Auto) 0.1 Abs Immat Gran (auto) 0.23 H Absolute Neuts (auto) 14.5 H Absolute Nucleated RBC 0.000 Nucleated RBC % (auto) 0.0 Anion Gap 15 Estim Creat Clear Calc 153.1 Estimated GFR > 60 POC Glucose 206 H Random Glucose 195 H Estimat Average Glucose Hemoglobin A1c % Lactic Acid 1.6 Calcium 9.5 D Magnesium 1.8 Total Bilirubin 0.4 AST 28 ALT 20 Alkaline Phosphatase 99 C-Reactive Protein 2.16 H Total Protein 8.3 H Albumin 4.1 Lipase 14 Beta HCG, Quant < 2 Urine Color Urine Appearance Urine pH Ur Specific [place] Urine Protein Urine Glucose (UA) Urine Ketones Urine Blood Urine Nitrite Ur Leukocyte Esterase Urine RBC Urine WBC Ur Squamous Epith Cells Urine Bacteria Hyaline Casts HIV 1&2 Ab/P24 Ag 4thGn 01/29/25 01/29/25 01/30/25 20:33 21:08 01:09 MCV MCH MCHC RDW Plt Count MPV Immature Gran % (Auto) Neut % (Auto) Lymph % (Auto) [place] % (Auto) Eos % (Auto) Baso % (Auto) Lymph # (Auto) [place] # (Auto) Eos # (Auto) Baso # (Auto) Abs Immat Gran (auto) Absolute Neuts (auto) Absolute Nucleated RBC Nucleated RBC % (auto) Anion Gap Estim Creat Clear Calc Estimated GFR POC Glucose 233 H 231 H Random Glucose Estimat Average Glucose Hemoglobin A1c % Lactic Acid Calcium Magnesium Total Bilirubin AST ALT Alkaline Phosphatase C-Reactive Protein Total Protein Albumin Lipase Beta HCG, Quant Urine Color Yellow Urine Appearance Cloudy Urine pH 7.0 Ur Specific [place] 1.025 Urine Protein 30 (1+) H Urine Glucose (UA) Negative Urine Ketones 80 Urine Blood Trace H Urine Nitrite Negative Ur Leukocyte Esterase Trace H Urine RBC >20 H Urine WBC 6-10 H Ur Squamous Epith Cells 11-20 Urine Bacteria 2+ Hyaline Casts 0-2 HIV 1&2 Ab/P24 Ag 4thGn 01/30/25 01/30/25 01/30/25 05:41 06:12 08:24 MCV 81.3 MCH 27.1 MCHC 33.3 RDW 14.0 Plt Count 401 H MPV 8.5 L Immature Gran % (Auto) 1.0 H Neut % (Auto) 77.1 H Lymph % (Auto) 16.2 L [place] % (Auto) 5.5 Eos % (Auto) 0.0 Baso % (Auto) 0.2 Lymph # (Auto) 3.0 [place] # (Auto) 1.0 Eos # (Auto) 0.0 Baso # (Auto) 0.0 Abs Immat Gran (auto) 0.19 H Absolute Neuts (auto) 14.3 H Absolute Nucleated RBC 0.000 Nucleated RBC % (auto) 0.0 Anion Gap 18 Estim Creat Clear Calc 143.1 Estimated GFR > 60 POC Glucose 200 H Random Glucose 188 H Estimat Average Glucose 200 Hemoglobin A1c % 8.6 H Lactic Acid Calcium 9.4 Magnesium Total Bilirubin 0.4 AST 19 ALT 14 Alkaline Phosphatase 92 C-Reactive Protein Total Protein 8.0 Albumin 4.0 Lipase Beta HCG, Quant Urine Color Urine Appearance Urine pH Ur Specific [place] Urine Protein Urine Glucose (UA) Urine Ketones Urine Blood Urine Nitrite Ur Leukocyte Esterase Urine RBC Urine WBC Ur Squamous Epith Cells Urine Bacteria Hyaline Casts HIV 1&2 Ab/P24 Ag [address] Nonreactive CT A/P 01/29/25 No acute findings. Assessment and Plan (1) Cyclic vomiting syndrome: Status: Acute (2) Intractable nausea and vomiting: Status: Acute Plan d2 for 39yo F with obesity, PCOS, OUD on methadone, chronic THC use, DM presenting with intractable N/V N/V - likely cyclic vomiting with component of cannabinoid hyperemesis, DM gastroparesis, and/or Trulicity use - NPO, IV fluids, IV ondansetron + metoclopramide, IV PPI - counseled against THC use OUD - vomited methadone, will give IV morphine, consult Addiction Medicine UTI - ceftriaxone 01/29, send UCx [was not sent prior to starting antibiotics] thrush - HIV negative, continue nystatin leukocytosis - likely reactive; continue to monitor HTN - amlodipine, lisinopril neuropathy - duloxetine adrenal nodule 2.4 cm - outpt follow-up DM2 - A1c 8.9 - levar-dose lipsro VTE ppx - enoxaparin dispo - home eventually Total time managing care of this patient today: 35 minutes. Quality Stroke Does the patient have a stroke diagnosis?: No Reason for No Anti-thrombotic by Day Two: N/A - Med Ordered VTE Prior VTE?: No VTE Risk Level:: Medical - moderate - high VTE Device Contraindication: N/A - Device Ordered VTE Drug Contraindication: N/A - Med Ordered
[2025-01-30] MEDS: Morphine Sulfate 4 MG/ML CARTRIDGE IVPUSH (12:42)
--- NOTE | 2025-01-30 12:54 | PC.NURSE ---
Patient awake and alert. skin pwd, resp even and non labored. speaking in full, clear sentences. CIWA 7, medicated w/ morphine per order, capsaicin cream applied to abd for nausea. awaiting bed for admission
[2025-01-30 13:28] LABS: Glucose, Whole Blood 223 mg/dL (60-115)
--- NOTE | 2025-01-30 14:06 | HO.ADDICT_ITS ---
History of Present Illness Date of Service: 01/30/2025 Chief Complaint: Intractable vomiting Reason for Consult: intractable vomiting --missed several days of methadone Sources of Information: patient interviewed and chart reviewed HPI Narrative: Patient is a 39 year old female with history of OUD, HTN, and gastritis. Presented to [facility] with several days of nausea and vomiting and subsequently medically admitted. Most information obtained via chart review as patient had recently vomited when t/w went to see her. Per admission note, patient reported that she started vomiting Sunday, which is also when she took last dose of methadone Methadone dosing verified with [facility]--90mg QD dosed 01/23 and provided with 6 take home doses. Chart review shows that partial dose was ordered and administered to patient this morning however she vomited immediately after. When seen by t/w, she is laying in bed, resting with eyes closed, wakes to voice. States that she is very nauseous, appearing uncomfortable. When asked about withdrawal sx, she denies any. She did not appear diaphoretic or restless. and VSS. Patient seen by t/w earlier this month for similar presentation At that time her methadone dose was 120mg, however was restarted on 90mg due to number of missed doses. During that visit she also reported abstaining from opiate and cocaine use since 07/03/2024. UDS not obtained at admission, however patient reporting cannabis use only. Past Psychiatric History: She has never been admitted into Psychiatry she does not have outpatient providers at this moment. Review of Systems Constitutional: Reports as per HPI Diagnostics Vital Signs (24Hr): Vital Signs - 24 hr 01/29/25 14:23 01/29/25 16:00 01/29/25 16:26 Temperature 97.9 F Pulse Rate 127 H 89 Respiratory Rate 20 17 Blood Pressure 151/119 H 131/108 H 131/108 H Pulse Oximetry 99 99 Oxygen Delivery Method Room Air Room Air 01/29/25 18:05 01/29/25 18:10 01/29/25 18:10 Temperature 98.5 F Pulse Rate 87 84 84 Respiratory Rate 12 Blood Pressure 168/99 H 179/96 H 189/103 H Pulse Oximetry 96 Oxygen Delivery Method Room Air 01/29/25 18:11 01/29/25 18:53 01/29/25 19:33 Temperature Pulse Rate 80 Respiratory Rate Blood Pressure 170/77 H 157/86 H 157/86 H Pulse Oximetry Oxygen Delivery Method 01/29/25 22:43 01/29/25 22:51 01/30/25 01:13 Temperature 98.7 F Pulse Rate 97 97 Respiratory Rate 14 13 14 Blood Pressure 180/100 H 183/98 H Pulse Oximetry 95 96 Oxygen Delivery Method Room Air Room Air 01/30/25 04:00 01/30/25 07:02 01/30/25 08:39 Temperature 98.8 F Pulse Rate 91 99 Respiratory Rate 14 14 Blood Pressure 148/88 H 111/63 142/73 H Pulse Oximetry 97 94 Oxygen Delivery Method Room Air Room Air 01/30/25 12:22 01/30/25 12:42 Temperature 97.4 F Pulse Rate 82 Respiratory Rate 12 12 Blood Pressure 144/83 H Pulse Oximetry 95 Oxygen Delivery Method Room Air BMI result Body Mass Index 43.5 Labs 01/30/25 05:41 01/30/25 06:12 Labs: Laboratory Results - last 48 hr 01/29/25 01/29/25 01/29/25 15:41 17:18 20:11 WBC 16.9 H RBC 4.66 Hgb 12.5 Hct 38.0 MCV 81.5 MCH 26.8 L MCHC 32.9 RDW 13.7 Plt Count 409 H MPV 8.2 L Immature Gran % (Auto) 1.4 H Neut % (Auto) 85.7 H Lymph % (Auto) 9.0 L [place] % (Auto) 3.5 Eos % (Auto) 0.1 Baso % (Auto) 0.3 Lymph # (Auto) 1.5 [place] # (Auto) 0.6 Eos # (Auto) 0.0 Baso # (Auto) 0.1 Abs Immat Gran (auto) 0.23 H Absolute Neuts (auto) 14.5 H Absolute Nucleated RBC 0.000 Nucleated RBC % (auto) 0.0 Sodium 141 Potassium 3.8 Chloride 104 Carbon Dioxide 26 Anion Gap 15 BUN 9 Creatinine 0.71 Estim Creat Clear Calc 153.1 Estimated GFR > 60 POC Glucose 206 H Random Glucose 195 H Estimat Average Glucose Hemoglobin A1c % Lactic Acid 1.6 Calcium 9.5 D Magnesium 1.8 Total Bilirubin 0.4 AST 28 ALT 20 Alkaline Phosphatase 99 C-Reactive Protein 2.16 H Total Protein 8.3 H Albumin 4.1 Lipase 14 Beta HCG, Quant < 2 Urine Color Urine Appearance Urine pH Ur Specific [place] Urine Protein Urine Glucose (UA) Urine Ketones Urine Blood Urine Nitrite Ur Leukocyte Esterase Urine RBC Urine WBC Ur Squamous Epith Cells Urine Bacteria Hyaline Casts HIV 1&2 Ab/P24 Ag 4thGn 01/29/25 01/29/25 01/30/25 20:33 21:08 01:09 WBC RBC Hgb Hct MCV MCH MCHC RDW Plt Count MPV Immature Gran % (Auto) Neut % (Auto) Lymph % (Auto) [place] % (Auto) Eos % (Auto) Baso % (Auto) Lymph # (Auto) [place] # (Auto) Eos # (Auto) Baso # (Auto) Abs Immat Gran (auto) Absolute Neuts (auto) Absolute Nucleated RBC Nucleated RBC % (auto) Sodium Potassium Chloride Carbon Dioxide Anion Gap BUN Creatinine Estim Creat Clear Calc Estimated GFR POC Glucose 233 H 231 H Random Glucose Estimat Average Glucose Hemoglobin A1c % Lactic Acid Calcium Magnesium Total Bilirubin AST ALT Alkaline Phosphatase C-Reactive Protein Total Protein Albumin Lipase Beta HCG, Quant Urine Color Yellow Urine Appearance Cloudy Urine pH 7.0 Ur Specific [place] 1.025 Urine Protein 30 (1+) H Urine Glucose (UA) Negative Urine Ketones 80 Urine Blood Trace H Urine Nitrite Negative Ur Leukocyte Esterase Trace H Urine RBC >20 H Urine WBC 6-10 H Ur Squamous Epith Cells 11-20 Urine Bacteria 2+ Hyaline Casts 0-2 HIV 1&2 Ab/P24 Ag 4thGn 01/30/25 01/30/25 01/30/25 05:41 06:12 08:24 WBC 18.5 H RBC 4.50 Hgb 12.2 Hct 36.6 L MCV 81.3 MCH 27.1 MCHC 33.3 RDW 14.0 Plt Count 401 H MPV 8.5 L Immature Gran % (Auto) 1.0 H Neut % (Auto) 77.1 H Lymph % (Auto) 16.2 L [place] % (Auto) 5.5 Eos % (Auto) 0.0 Baso % (Auto) 0.2 Lymph # (Auto) 3.0 [place] # (Auto) 1.0 Eos # (Auto) 0.0 Baso # (Auto) 0.0 Abs Immat Gran (auto) 0.19 H Absolute Neuts (auto) 14.3 H Absolute Nucleated RBC 0.000 Nucleated RBC % (auto) 0.0 Sodium 141 Potassium 3.5 Chloride 103 Carbon Dioxide 24 Anion Gap 18 BUN 11 Creatinine 0.76 Estim Creat Clear Calc 143.1 Estimated GFR > 60 POC Glucose 200 H Random Glucose 188 H Estimat Average Glucose 200 Hemoglobin A1c % 8.6 H Lactic Acid Calcium 9.4 Magnesium Total Bilirubin 0.4 AST 19 ALT 14 Alkaline Phosphatase 92 C-Reactive Protein Total Protein 8.0 Albumin 4.0 Lipase Beta HCG, Quant Urine Color Urine Appearance Urine pH Ur Specific [place] Urine Protein Urine Glucose (UA) Urine Ketones Urine Blood Urine Nitrite Ur Leukocyte Esterase Urine RBC Urine WBC Ur Squamous Epith Cells Urine Bacteria Hyaline Casts HIV 1&2 Ab/P24 Ag 4thGn Nonreactive 01/30/25 13:25 WBC RBC Hgb Hct MCV MCH MCHC RDW Plt Count MPV Immature Gran % (Auto) Neut % (Auto) Lymph % (Auto) [place] % (Auto) Eos % (Auto) Baso % (Auto) Lymph # (Auto) [place] # (Auto) Eos # (Auto) Baso # (Auto) Abs Immat Gran (auto) Absolute Neuts (auto) Absolute Nucleated RBC Nucleated RBC % (auto) Sodium Potassium Chloride Carbon Dioxide Anion Gap BUN Creatinine Estim Creat Clear Calc Estimated GFR POC Glucose 223 H Random Glucose Estimat Average Glucose Hemoglobin A1c % Lactic Acid Calcium Magnesium Total Bilirubin AST ALT Alkaline Phosphatase C-Reactive Protein Total Protein Albumin Lipase Beta HCG, Quant Urine Color Urine Appearance Urine pH Ur Specific [place] Urine Protein Urine Glucose (UA) Urine Ketones Urine Blood Urine Nitrite Ur Leukocyte Esterase Urine RBC Urine WBC Ur Squamous Epith Cells Urine Bacteria Hyaline Casts HIV 1&2 Ab/P24 Ag 4thGn Mental Status Exam Mental Status Exam Level of Consciousness: Drowsy Patient Behavior: Appropriate Affect Description: Blunted Speech Pattern: Clear and Whisper Judgement: Good Medications Medications Current Medications Acetaminophen (Acetaminophen 325 Mg Tablet) 650 mg PO Q6H PRN PRN Reason: Pain, Mild 1-3,fever,headache Albuterol/Ipratropium (Albuterol/Iprat 2.5/0.5mg 3 Ml Ampul.Neb) 3 ml INHALE Q4H PRN PRN Reason: Shortness of Breath/Wheezing Amlodipine Besylate (Amlodipine Besylate 5 Mg Tablet) 5 mg PO DAILY [facility]; Protocol Last Admin: 01/30/25 08:39 Dose: 5 mg Calcium Carbonate (Calcium Carbonate 750 Mg Tab.Chew) 750 mg PO Q4H PRN PRN Reason: Heartburn Capsaicin (Capsaicin 0.025% Cream 60 Gm Tube) 1 appl TOPICAL TID PRN; Protocol PRN Reason: Nausea and Vomiting Last Admin: 01/30/25 12:52 Dose: 1 appl Ceftriaxone Sodium (Ceftriaxone Sodium 1 Gm Vial) 1 gm IVPUSH Q24H [facility] Last Admin: 01/29/25 23:23 Dose: 1 gm Dextrose (Dextrose 50 % 25 Gm/50 Ml Syringe) 25 gm IVPUSH Q15M PRN; Protocol PRN Reason: per Hypoglycemia Standing Ord. Diazepam (Diazepam 10 Mg/2 Ml Cartridge) 10 mg IVPUSH Q4H PRN PRN Reason: anxiety/restlessness Last Admin: 01/30/25 06:12 Dose: 10 mg Duloxetine HCl (Duloxetine Hcl 30 Mg Capsule.Dr) 30 mg PO DAILY [facility] Last Admin: 01/30/25 08:40 Dose: 30 mg Enoxaparin Sodium (Enoxaparin Sodium 40 Mg/0.4 Ml Syringe) 40 mg SUBCUT Q24H [facility] Last Admin: 01/29/25 21:17 Dose: 40 mg Glucose (Glucose Gel 15 Gm Gel..Gram.) 15 gm PO Q15M PRN; Protocol PRN Reason: per Hypoglycemia Standing Ord. Hydralazine HCl (Hydralazine Hcl 20 Mg/Ml Vial) 10 mg IVPUSH Q6H PRN; Protocol PRN Reason: SBP > 160 Lactated Ringer's (Lr) 1,000 mls @ 125 mls/hr IVCONT .Q8H [facility] Last Admin: 01/30/25 09:27 Dose: 125 mls/hr Insulin Human Lispro (Insulin Lispro 100 Unit/Ml 3 Ml Vial) 0 unit SUBCUT Q6H [facility]; Protocol Last Admin: 01/30/25 08:39 Dose: 2 unit Lisinopril (Lisinopril 20 Mg Tablet) 20 mg PO DAILY [facility]; Protocol Last Admin: 01/30/25 08:39 Dose: 20 mg Magnesium Hydroxide (Milk Of Magnesia 30 Ml Oral.Susp) 30 ml PO DAILY PRN PRN Reason: Constipation Melatonin (Melatonin 3 Mg Tablet) 6 mg PO BEDTIME PRN PRN Reason: Insomnia Methadone HCl (Methadone Hcl 20 Mg/2 Ml Oral.Conc) 65 mg PO DAILY [facility] Last Admin: 01/30/25 08:40 Dose: 65 mg Metoclopramide HCl (Metoclopramide Hcl 10 Mg/2 Ml Vial) 5 mg IVPUSH Q4H PRN PRN Reason: n/v not relieved by zofran Morphine Sulfate (Morphine Sulfate 4 Mg/Ml Cartridge) 4 mg IVPUSH Q4H PRN; Protocol PRN Reason: pain or opioid withdrawal Last Admin: 01/30/25 12:42 Dose: 4 mg Nystatin (Nystatin Oral Susp 500,000 Unit/5 Ml Oral.Susp) 400,000 unit PO QID [facility]; Protocol Last Admin: 01/30/25 12:42 Dose: 400,000 unit Ondansetron HCl (Ondansetron Hcl 4 Mg/2 Ml Vial) 4 mg IVPUSH Q4H PRN PRN Reason: Nausea and Vomiting Pantoprazole Sodium (Pantoprazole Sodium 40 Mg/10 Ml Vial) 40 mg IVPUSH DAILY@0630 [facility] Last Admin: 01/30/25 06:04 Dose: 40 mg Senna (Sennosides 8.6 Mg Tablet) 17.2 mg PO BEDTIME [facility] Last Admin: 01/29/25 21:19 Dose: Not Given Sodium Chloride (0.9 % Sodium Chloride Flush 3 Ml Syringe) 3 ml IVFLUSH QSHIFT [facility] Last Admin: 01/30/25 07:01 Dose: 3 ml Allergies Allergies Allergy/AdvReac Type Severity Reaction Status Date / Time metformin AdvReac Intermediate Nausea Verified 01/29/25 14:27 Assessment & Plan Assessment & Plan (1) Opioid use disorder, severe, in early remission: Status: Acute Code(s): F11.21 - Opioid dependence, in remission Assessment and Plan: * continue to hold methadone until patient is able to tolerate PO---during last admission patient was able to notify t/w when she felt ready to restart medication * when she does restart she can start at 50mg and observe to make sure it's tolerated---with goal of titrating back to home dose prior to discharge * Will check in over the weekend Total time managing care of this patient today _35___ minutes. PMFSH Past Medical History Medical History Morbid obesity Neuropathy History of open wound of lower extremity Opioid use disorder Hypertension Sepsis Depression PCOS (polycystic ovarian syndrome) Rash Polysubstance (excluding opioids) dependence, daily use Methadone maintenance therapy patient Anxiety and depression Diabetes Family History Family History Father No problems noted. Mother Hx of diabetes mellitus Sister Heart disease Surgical History Surgical History Hx of removal of cyst Social History Social History Household Members: Family Household Members Other:: daughter Housing: House Do you presently have visiting nurse or other home services: No Alcohol intake: former Patient Tobacco Use Status: Never used Tobacco Tobacco use type: Cigarette Cigarette Packs Per Day: 3 Cigarettes Per Day: 60.0 Years Smoked: 2 Smoked in Last 30 Days: Yes e-Cigarette/Vaping Use: Never Used Second Hand Smoke Exposure: No Use of substances other than those prescribed or required for medical reasons: Yes Substance Use Type: Marijuana Substance Use Frequency: Occasionally Advance Directives: Yes Advance Directives on File: Yes Advance Directives Date on File: 01/11/22 Do you have a plan to hurt others: No Plan Patient : No ( test negative) service: No Current occupational status: unemployed
[2025-01-30 16:58] LABS: Glucose, Whole Blood 182 mg/dL (60-115)
[2025-01-30] MEDS: Metoclopramide HCl 10 MG/2 ML VIAL 5 MG IVPUSH (17:28)
[2025-01-30 20:41] LABS: Glucose, Whole Blood 250 mg/dL (60-115)
[2025-01-30] MEDS: Enoxaparin Sodium 40 MG/0.4 ML SYRINGE SUBCUT (21:21)
[2025-01-30] MEDS: cefTRIAXone sodium 1 GM VIAL IVPUSH (21:22)
[2025-01-31] VITALS (7 sets, daily range): BP systolic 133–170; BP diastolic 73–93; PULSE 77–88; RESP 16–18; TEMP 36.4–36.9; O2SAT 93–97
[2025-01-31] MEDS: Lactated Ringers 1,000 ML 125 ML IVCONT ×3 (00:54→17:44)
[2025-01-31] MEDS: ondansetron HCL 4 MG/2 ML VIAL IVPUSH ×3 (01:49→15:57)
[2025-01-31 04:48] LABS: Glucose, Whole Blood 218 mg/dL (60-115)
[2025-01-31] MEDS: Insulin Lispro 100 UNIT/ML 3 ML VIAL SUBCUT ×5 (04:58→21:02)
[2025-01-31] MEDS: Pantoprazole Sodium 40 MG/10 ML VIAL IVPUSH (06:23)
[2025-01-31 06:58] LABS: Hematocrit 34.3 % (37.0-47.0); Hemoglobin 11.4 g/dl (12.0-16.0); Mean Corpuscular HGB Conc 33.2 g/dl (31.0-35.0); Mean Corpuscular Hemoglobin 27.1 pg (27.0-33.0); Mean Corpuscular Volume 81.7 fL (80.0-98.0); Mean Platelet Volume 8.5 fL (9.4-12.3); Platelet Count 360 X10*3/uL (160-400); Red Cell Distribution Width 13.7 % (11.0-16.0); White Blood Count 12.9 X10*3/uL (4.8-10.8)
[2025-01-31 07:14] LABS: Anion Gap 13 (12-20); Blood Urea Nitrogen 10 mg/dL (9-16); Calcium 8.6 mg/dL (8.4-10.2); Carbon Dioxide 26 mmol/L (22-29); Chloride 102 mmol/L (96-108); Creatinine Clr Calc Pharmacy 140.8; Estimated Glomerular Filt Rate > 60; Glucose Random 199 mg/dL (60-115); Potassium 3.5 mmol/L (3.3-5.1); Sodium 137 mmol/L (135-145)
[2025-01-31 07:39] LABS: Glucose, Whole Blood 216 mg/dL (60-115)
[2025-01-31] MEDS: methADONE HCl 20 MG/2 ML ORAL.CONC 50 MG PO (09:35)
[2025-01-31] MEDS: Metoclopramide HCl 10 MG/2 ML VIAL 5 MG IVPUSH ×2 (10:14→13:05)
--- NOTE | 2025-01-31 11:03 | HO.PM.IMPN ---
Subjective Subjective Date of Service: 01/31/25 Interval History: c/o severe nausea abd pain improved doesn't want to try solids Review of Systems Review of Systems: Yes all other systems are reviewed and are negative Physical Exam Vital Signs: Vital Signs: Last Vital Signs Temp 98.1 F 01/31/25 07:21 Pulse 78 01/31/25 07:21 Resp 18 01/31/25 07:21 BP 139/78 01/31/25 07:21 Pulse Ox 95 01/31/25 07:21 O2 Del Method Room Air 01/31/25 07:21 BMI result Body Mass Index 43.3 Gen: in no acute distress HEENT: sclera anicteric, moist mucus membranes Neck: supple Lungs: clear to auscultation bilaterally Heart: regular rate and rhythm, no murmurs Abd: soft, obese, generalized tenderness, non-distended Ext: no edema Skin: warm/well-perfused Neuro: alert and oriented x3, no focal findings Psych: appropriate affect Objective Data Active Medications Acetaminophen (Acetaminophen 325 Mg Tablet) 650 mg PO Q6H PRN PRN Reason: Pain, Mild 1-3,fever,headache Albuterol/Ipratropium (Albuterol/Iprat 2.5/0.5mg 3 Ml Ampul.Neb) 3 ml INHALE Q4H PRN PRN Reason: Shortness of Breath/Wheezing Amlodipine Besylate (Amlodipine Besylate 5 Mg Tablet) 5 mg PO DAILY [facility]; Protocol Last Admin: 01/31/25 09:35 Dose: 5 mg Documented By: JAYCEE Calcium Carbonate (Calcium Carbonate 750 Mg Tab.Chew) 750 mg PO Q4H PRN PRN Reason: Heartburn Capsaicin (Capsaicin 0.025% Cream 60 Gm Tube) 1 appl TOPICAL TID PRN; Protocol PRN Reason: Nausea and Vomiting Last Admin: 01/30/25 12:52 Dose: 1 appl Documented By: JONNY Ceftriaxone Sodium (Ceftriaxone Sodium 1 Gm Vial) 1 gm IVPUSH Q24H [facility] Last Admin: 01/30/25 21:22 Dose: 1 gm Documented By: ACOINRick Dextrose (Dextrose 50 % 25 Gm/50 Ml Syringe) 25 gm IVPUSH Q15M PRN; Protocol PRN Reason: per Hypoglycemia Standing Ord. Diazepam (Diazepam 10 Mg/2 Ml Cartridge) 10 mg IVPUSH Q4H PRN PRN Reason: anxiety/restlessness Last Admin: 01/30/25 06:12 Dose: 10 mg Documented By: SERGIO Duloxetine HCl (Duloxetine Hcl 30 Mg Capsule.Dr) 30 mg PO DAILY [facility] Last Admin: 01/31/25 09:35 Dose: 30 mg Documented By: JAYCEE Enoxaparin Sodium (Enoxaparin Sodium 40 Mg/0.4 Ml Syringe) 40 mg SUBCUT Q24H [facility] Last Admin: 01/30/25 21:21 Dose: 40 mg Documented By: ANTOINC Glucose (Glucose Gel 15 Gm Gel..Gram.) 15 gm PO Q15M PRN; Protocol PRN Reason: per Hypoglycemia Standing Ord. Hydralazine HCl (Hydralazine Hcl 20 Mg/Ml Vial) 10 mg IVPUSH Q6H PRN; Protocol PRN Reason: SBP > 160 Lactated Ringer's (Lr) 1,000 mls @ 125 mls/hr IVCONT .Q8H [facility] Last Admin: 01/31/25 09:36 Dose: 125 mls/hr Documented By: JAYCEE Insulin Human Lispro (Insulin Lispro 100 Unit/Ml 3 Ml Vial) 0 unit SUBCUT Q6H [facility]; Protocol Last Admin: 01/31/25 09:36 Dose: 4 unit Documented By: JAYCEE Lisinopril (Lisinopril 20 Mg Tablet) 20 mg PO DAILY [facility]; Protocol Last Admin: 01/31/25 09:36 Dose: 20 mg Documented By: JAYCEE Magnesium Hydroxide (Milk Of Magnesia 30 Ml Oral.Susp) 30 ml PO DAILY PRN PRN Reason: Constipation Melatonin (Melatonin 3 Mg Tablet) 6 mg PO BEDTIME PRN PRN Reason: Insomnia Methadone HCl (Methadone Hcl 20 Mg/2 Ml Oral.Conc) 50 mg PO DAILY [facility] Last Admin: 01/31/25 09:35 Dose: 50 mg Documented By: JAYCEE Co-signed By: HEIDI Metoclopramide HCl (Metoclopramide Hcl 10 Mg/2 Ml Vial) 5 mg IVPUSH Q4H PRN PRN Reason: n/v not relieved by zofran Last Admin: 01/31/25 10:14 Dose: 5 mg Documented By: JAYCEE Nystatin (Nystatin Oral Susp 500,000 Unit/5 Ml Oral.Susp) 400,000 unit PO QID [facility]; Protocol Last Admin: 01/31/25 09:35 Dose: 400,000 unit Documented By: JAYCEE Ondansetron HCl (Ondansetron Hcl 4 Mg/2 Ml Vial) 4 mg IVPUSH Q4H PRN PRN Reason: Nausea and Vomiting Last Admin: 01/31/25 09:35 Dose: 4 mg Documented By: JAYCEE Pantoprazole Sodium (Pantoprazole Sodium 40 Mg/10 Ml Vial) 40 mg IVPUSH DAILY@0630 [facility] Last Admin: 01/31/25 06:23 Dose: 40 mg Documented By: ANTOINC Senna (Sennosides 8.6 Mg Tablet) 17.2 mg PO BEDTIME [facility] Last Admin: 01/30/25 21:22 Dose: Not Given Documented By: ACOINRick Non-Admin Reason: Patient Refused Sodium Chloride (0.9 % Sodium Chloride Flush 3 Ml Syringe) 3 ml IVFLUSH QSHIFT [facility] Last Admin: 01/31/25 07:28 Dose: Not Given Documented By: JAYCEE Non-Admin Reason: Previously Administered Labs 01/31/25 06:13 01/31/25 06:13 Labs: Laboratory Results - last 24 hr 01/30/25 01/30/25 01/30/25 13:25 16:54 20:33 MCV MCH MCHC RDW Plt Count MPV Absolute Nucleated RBC Nucleated RBC % (auto) Anion Gap Estim Creat Clear Calc Estimated GFR POC Glucose 223 H 182 H 250 H Random Glucose Calcium 01/31/25 01/31/25 01/31/25 04:44 06:13 07:21 MCV 81.7 MCH 27.1 MCHC 33.2 RDW 13.7 Plt Count 360 MPV 8.5 L Absolute Nucleated RBC 0.000 Nucleated RBC % (auto) 0.0 Anion Gap 13 Estim Creat Clear Calc 140.8 Estimated GFR > 60 POC Glucose 218 H 216 H Random Glucose 199 H Calcium 8.6 D Microbiology Microbiology Results: Microbiology 01/29/25 23:14 Blood Culture - Preliminary Blood - Venous No growth after 24 hours. 01/29/25 23:14 Blood Culture - Preliminary Blood - Venous No growth after 24 hours. Assessment and Plan (1) Cyclic vomiting syndrome: Status: Acute (2) Intractable nausea and vomiting: Status: Acute Plan d3 for 39yo F with obesity, PCOS, OUD on methadone, chronic THC use, DM presenting with intractable N/V N/V - likely cyclic vomiting with component of cannabinoid hyperemesis, DM gastroparesis; pt states she never started Trulicity - NPO, IV fluids, IV ondansetron + metoclopramide, IV PPI - counseled against THC use OUD - vomited methadone but hopefully now tolerating, consulted Addiction Medicine, resume at 50 mg/d and titrate back up to 65 mg/d UTI - ceftriaxone 01/29, UCx pending thrush - HIV negative, continue nystatin leukocytosis - likely reactive; improved HTN - amlodipine, lisinopril neuropathy - duloxetine adrenal nodule 2.7 cm - outpt follow-up DM2 - A1c 8.9 - levar-dose lipsro VTE ppx - enoxaparin dispo - home eventually In my clinical judgment, the patient requires continued inpatient hospitalization for the following reasons: PO intolerance Total time managing care of this patient today: 35 minutes. Quality Stroke Does the patient have a stroke diagnosis?: No Reason for No Anti-thrombotic by Day Two: N/A - Med Ordered VTE Prior VTE?: No VTE Risk Level:: Medical - moderate - high VTE Device Contraindication: N/A - Device Ordered VTE Drug Contraindication: N/A - Med Ordered
[2025-01-31] MEDS: diazePAM 10 MG/2 ML CARTRIDGE IVPUSH (11:11)
[2025-01-31 11:15] LABS: Glucose, Whole Blood 249 mg/dL (60-115)
[2025-01-31] MEDS: Capsaicin 0.025% Cream 60 GM TUBE 1 APPL TOPICAL (12:26)
--- NOTE | 2025-01-31 12:28 | PC.NURSE ---
informed pt having multiple episodes of n/v despite prn's. pt able to take methadone unable to take other AM meds
[2025-01-31 15:56] LABS: Glucose, Whole Blood 216 mg/dL (60-115)
[2025-01-31] MEDS: Nystatin Oral Susp 500,000 UNIT/5 ML ORAL.SUSP 400000 UNIT PO ×2 (17:40→21:02)
[2025-01-31 20:34] LABS: Glucose, Whole Blood 238 mg/dL (60-115)
[2025-01-31] MEDS: cefTRIAXone sodium 1 GM VIAL IVPUSH (21:03)
[2025-01-31] MEDS: Enoxaparin Sodium 40 MG/0.4 ML SYRINGE SUBCUT (21:03)
[2025-01-31] MEDS: 0.9 % Sodium Chloride Flush 3 ML SYRINGE IVFLUSH (21:03)
[2025-02-01] VITALS (7 sets, daily range): BP systolic 133–159; BP diastolic 68–85; PULSE 76–87; RESP 16–18; TEMP 36.1–36.8; O2SAT 95–98
[2025-02-01] MEDS: ondansetron HCL 4 MG/2 ML VIAL IVPUSH ×3 (06:02→23:42)
[2025-02-01] MEDS: Pantoprazole Sodium 40 MG/10 ML VIAL IVPUSH (06:02)
[2025-02-01 07:12] LABS: Glucose, Whole Blood 249 mg/dL (60-115)
[2025-02-01] MEDS: Metoclopramide HCl 10 MG/2 ML VIAL 5 MG IVPUSH (08:05)
[2025-02-01] MEDS: Lactated Ringers 1,000 ML 125 ML IVCONT (08:05)
[2025-02-01] MEDS: Insulin Lispro 100 UNIT/ML 3 ML VIAL SUBCUT ×4 (08:07→21:20)
[2025-02-01] MEDS: amLODIPine Besylate 5 MG TABLET PO (08:07)
[2025-02-01] MEDS: DULoxetine HCl 30 MG CAPSULE.DR PO (08:07)
[2025-02-01] MEDS: methADONE HCl 20 MG/2 ML ORAL.CONC 50 MG PO (08:07)
[2025-02-01] MEDS: lisinopriL 20 MG TABLET PO (08:07)
[2025-02-01] MEDS: Nystatin Oral Susp 500,000 UNIT/5 ML ORAL.SUSP 400000 UNIT PO ×4 (08:08→21:20)
[2025-02-01 11:04] LABS: Anion Gap 14 (12-20); Blood Urea Nitrogen 6 mg/dL (9-16); Carbon Dioxide 26 mmol/L (22-29); Chloride 100 mmol/L (96-108); Creatinine Clr Calc Pharmacy 132.2; Estimated Glomerular Filt Rate > 60; Glucose Random 250 mg/dL (60-115); Potassium 3.9 mmol/L (3.3-5.1); Sodium 136 mmol/L (135-145)
[2025-02-01 11:31] LABS: Glucose, Whole Blood 231 mg/dL (60-115)
--- NOTE | 2025-02-01 13:52 | HO.ADDICTPRO ---
Subjective Subjective Date of Service: 02/01/25 Reason For Visit: Intractable vomiting Interim History: Patient seen in follow up Laying in bed, eyes closed, but answering questions Still reporting nausea and vomiting, however has been able to tolerate methadone doses Would like to continue titrating dose --received 50mg past 2 days Doing well on 90mg (home dose) and denies any substance use Briefly discussed cannabis use and how it may be contributing to current admission, patient quickly responding I am quitting . Review of Systems Constitutional: Reports as per HPI, Reports malaise and Reports weakness Gastrointestinal: Denies loose stools, Reports nausea and Reports vomiting Musculoskeletal: Reports myalgias Reports weakness Mental Status Exam Mental Status Exam Level of Consciousness: Awake (eyes closed) Patient Behavior: Appropriate Affect Description: Flat Diagnostics Vital Signs (24Hr): Vital Signs - 24 hr 01/31/25 15:27 01/31/25 20:00 01/31/25 23:35 Temperature 97.7 F 97.8 F 97.5 F Pulse Rate 81 77 86 Respiratory Rate 18 16 18 Blood Pressure 135/73 157/81 H 170/89 H Pulse Oximetry 94 96 97 Oxygen Delivery Method Room Air Room Air Room Air 02/01/25 00:40 02/01/25 04:00 02/01/25 07:37 Temperature 97.6 F 98.1 F Pulse Rate 87 84 Respiratory Rate 18 16 Blood Pressure 147/78 H 133/68 159/69 H Pulse Oximetry 95 95 Oxygen Delivery Method Room Air Room Air 02/01/25 11:05 Temperature 97.5 F Pulse Rate 76 Respiratory Rate 18 Blood Pressure 140/73 H Pulse Oximetry 95 Oxygen Delivery Method Room Air BMI result Body Mass Index 43.3 Labs 01/31/25 06:13 02/01/25 10:24 Labs: Laboratory Results - last 48 hr 01/30/25 01/30/25 01/31/25 16:54 20:33 04:44 WBC RBC Hgb Hct MCV MCH MCHC RDW Plt Count MPV Absolute Nucleated RBC Nucleated RBC % (auto) Hold Purple Top Sodium Potassium Chloride Carbon Dioxide Anion Gap BUN Creatinine Estim Creat Clear Calc Estimated GFR POC Glucose 182 H 250 H 218 H Random Glucose Calcium 01/31/25 01/31/25 01/31/25 06:13 07:21 11:02 WBC 12.9 H RBC 4.20 Hgb 11.4 L Hct 34.3 L MCV 81.7 MCH 27.1 MCHC 33.2 RDW 13.7 Plt Count 360 MPV 8.5 L Absolute Nucleated RBC 0.000 Nucleated RBC % (auto) 0.0 Hold Purple Top Sodium 137 Potassium 3.5 Chloride 102 Carbon Dioxide 26 Anion Gap 13 BUN 10 Creatinine 0.77 Estim Creat Clear Calc 140.8 Estimated GFR > 60 POC Glucose 216 H 249 H Random Glucose 199 H Calcium 8.6 D 01/31/25 01/31/25 02/01/25 15:31 20:25 06:58 WBC RBC Hgb Hct MCV MCH MCHC RDW Plt Count MPV Absolute Nucleated RBC Nucleated RBC % (auto) Hold Purple Top Sodium Potassium Chloride Carbon Dioxide Anion Gap BUN Creatinine Estim Creat Clear Calc Estimated GFR POC Glucose 216 H 238 H 249 H Random Glucose Calcium 02/01/25 02/01/25 02/01/25 10:20 10:24 11:09 WBC RBC Hgb Hct MCV MCH MCHC RDW Plt Count MPV Absolute Nucleated RBC Nucleated RBC % (auto) Hold Purple Top SEE NOTE Sodium 136 Potassium 3.9 Chloride 100 Carbon Dioxide 26 Anion Gap 14 BUN 6 L Creatinine 0.82 Estim Creat Clear Calc 132.2 Estimated GFR > 60 POC Glucose 231 H Random Glucose 250 H Calcium 9.0 Medications Medications Current Medications Acetaminophen (Acetaminophen 325 Mg Tablet) 650 mg PO Q6H PRN PRN Reason: Pain, Mild 1-3,fever,headache Albuterol/Ipratropium (Albuterol/Iprat 2.5/0.5mg 3 Ml Ampul.Neb) 3 ml INHALE Q4H PRN PRN Reason: Shortness of Breath/Wheezing Amlodipine Besylate (Amlodipine Besylate 5 Mg Tablet) 5 mg PO DAILY [facility]; Protocol Last Admin: 02/01/25 08:07 Dose: 5 mg Calcium Carbonate (Calcium Carbonate 750 Mg Tab.Chew) 750 mg PO Q4H PRN PRN Reason: Heartburn Capsaicin (Capsaicin 0.025% Cream 60 Gm Tube) 1 appl TOPICAL TID PRN; Protocol PRN Reason: Nausea and Vomiting Last Admin: 01/31/25 12:26 Dose: 1 appl Ceftriaxone Sodium (Ceftriaxone Sodium 1 Gm Vial) 1 gm IVPUSH Q24H [facility] Last Admin: 01/31/25 21:03 Dose: 1 gm Dextrose (Dextrose 50 % 25 Gm/50 Ml Syringe) 25 gm IVPUSH Q15M PRN; Protocol PRN Reason: per Hypoglycemia Standing Ord. Diazepam (Diazepam 10 Mg/2 Ml Cartridge) 10 mg IVPUSH Q4H PRN PRN Reason: anxiety/restlessness Last Admin: 01/31/25 11:11 Dose: 10 mg Duloxetine HCl (Duloxetine Hcl 30 Mg Capsule.Dr) 30 mg PO DAILY [facility] Last Admin: 02/01/25 08:07 Dose: 30 mg Enoxaparin Sodium (Enoxaparin Sodium 40 Mg/0.4 Ml Syringe) 40 mg SUBCUT Q24H [facility] Last Admin: 01/31/25 21:03 Dose: 40 mg Glucose (Glucose Gel 15 Gm Gel..Gram.) 15 gm PO Q15M PRN; Protocol PRN Reason: per Hypoglycemia Standing Ord. Insulin Human Lispro (Insulin Lispro 100 Unit/Ml 3 Ml Vial) 0 unit SUBCUT QIDACHS [facility]; Protocol Last Admin: 02/01/25 11:51 Dose: 4 unit Lisinopril (Lisinopril 20 Mg Tablet) 20 mg PO DAILY [facility]; Protocol Last Admin: 02/01/25 08:07 Dose: 20 mg Magnesium Hydroxide (Milk Of Magnesia 30 Ml Oral.Susp) 30 ml PO DAILY PRN PRN Reason: Constipation Melatonin (Melatonin 3 Mg Tablet) 6 mg PO BEDTIME PRN PRN Reason: Insomnia Methadone HCl (Methadone Hcl 20 Mg/2 Ml Oral.Conc) 65 mg PO DAILY [facility] Metoclopramide HCl (Metoclopramide Hcl 10 Mg/2 Ml Vial) 5 mg IVPUSH Q4H PRN PRN Reason: n/v not relieved by zofran Last Admin: 02/01/25 08:05 Dose: 5 mg Nystatin (Nystatin Oral Susp 500,000 Unit/5 Ml Oral.Susp) 400,000 unit PO QID [facility]; Protocol Last Admin: 02/01/25 11:52 Dose: 400,000 unit Ondansetron HCl (Ondansetron Hcl 4 Mg/2 Ml Vial) 4 mg IVPUSH Q4H PRN PRN Reason: Nausea and Vomiting Last Admin: 02/01/25 11:52 Dose: 4 mg Pantoprazole Sodium (Pantoprazole Sodium 40 Mg/10 Ml Vial) 40 mg IVPUSH DAILY@0630 [facility] Last Admin: 02/01/25 06:02 Dose: 40 mg Senna (Sennosides 8.6 Mg Tablet) 17.2 mg PO BEDTIME [facility] Last Admin: 01/31/25 22:31 Dose: Not Given Sodium Chloride (0.9 % Sodium Chloride Flush 3 Ml Syringe) 3 ml IVFLUSH QSHIFT [facility] Last Admin: 02/01/25 08:13 Dose: Not Given Allergies Allergies Allergy/AdvReac Type Severity Reaction Status Date / Time metformin AdvReac Intermediate Nausea Verified 01/29/25 14:27 Assessment & Plan Assessment & Plan (1) Opioid use disorder, severe, in early remission: Status: Acute Code(s): F11.21 - Opioid dependence, in remission Assessment and Plan: methadone increased to 65mg in AM. Can continue to increase by 10mg as tolerated until back at home dose of 90mg already connected to [facility] O[facility] Total time managing care of this patient today __25__ minutes.
--- NOTE | 2025-02-01 15:21 | HO.PM.IMPN ---
Subjective Subjective Date of Service: 02/01/25 Interval History: Reports feeling slightly better Still not tolerating much PO- tolerating water and juice but still with nausea and vomiting no fevers, chills, abd pain. On ivf Review of Systems Review of Systems: Yes all other systems are reviewed and are negative Physical Exam Vital Signs: Vital Signs: Last Vital Signs Temp 97.5 F 02/01/25 11:05 Pulse 76 02/01/25 11:05 Resp 18 02/01/25 11:05 BP 140/73 H 02/01/25 11:05 Pulse Ox 95 02/01/25 11:05 O2 Del Method Room Air 02/01/25 11:05 BMI result Body Mass Index 43.3 Gen: in no acute distress HEENT: sclera anicteric, moist mucus membranes Neck: supple Lungs: clear to auscultation bilaterally Heart: regular rate and rhythm, no murmurs Abd: soft, obese, generalized tenderness, non-distended Ext: no edema Skin: warm/well-perfused Neuro: alert and oriented x3, no focal findings Psych: appropriate affect Objective Data Active Medications Acetaminophen (Acetaminophen 325 Mg Tablet) 650 mg PO Q6H PRN PRN Reason: Pain, Mild 1-3,fever,headache Albuterol/Ipratropium (Albuterol/Iprat 2.5/0.5mg 3 Ml Ampul.Neb) 3 ml INHALE Q4H PRN PRN Reason: Shortness of Breath/Wheezing Amlodipine Besylate (Amlodipine Besylate 5 Mg Tablet) 5 mg PO DAILY [facility]; Protocol Last Admin: 02/01/25 08:07 Dose: 5 mg Documented By: MARVIN Calcium Carbonate (Calcium Carbonate 750 Mg Tab.Chew) 750 mg PO Q4H PRN PRN Reason: Heartburn Capsaicin (Capsaicin 0.025% Cream 60 Gm Tube) 1 appl TOPICAL TID PRN; Protocol PRN Reason: Nausea and Vomiting Last Admin: 01/31/25 12:26 Dose: 1 appl Documented By: JAYCEE Ceftriaxone Sodium (Ceftriaxone Sodium 1 Gm Vial) 1 gm IVPUSH Q24H [facility] Last Admin: 01/31/25 21:03 Dose: 1 gm Documented By: KHRIS Dextrose (Dextrose 50 % 25 Gm/50 Ml Syringe) 25 gm IVPUSH Q15M PRN; Protocol PRN Reason: per Hypoglycemia Standing Ord. Diazepam (Diazepam 10 Mg/2 Ml Cartridge) 10 mg IVPUSH Q4H PRN PRN Reason: anxiety/restlessness Last Admin: 01/31/25 11:11 Dose: 10 mg Documented By: JAYCEE Duloxetine HCl (Duloxetine Hcl 30 Mg Capsule.Dr) 30 mg PO DAILY [facility] Last Admin: 02/01/25 08:07 Dose: 30 mg Documented By: MARVIN Enoxaparin Sodium (Enoxaparin Sodium 40 Mg/0.4 Ml Syringe) 40 mg SUBCUT Q24H [facility] Last Admin: 01/31/25 21:03 Dose: 40 mg Documented By: MARCIEMACathryn Glucose (Glucose Gel 15 Gm Gel..Gram.) 15 gm PO Q15M PRN; Protocol PRN Reason: per Hypoglycemia Standing Ord. Insulin Human Lispro (Insulin Lispro 100 Unit/Ml 3 Ml Vial) 0 unit SUBCUT QIDACHS [facility]; Protocol Last Admin: 02/01/25 11:51 Dose: 4 unit Documented By: MARVIN Lisinopril (Lisinopril 20 Mg Tablet) 20 mg PO DAILY [facility]; Protocol Last Admin: 02/01/25 08:07 Dose: 20 mg Documented By: MARVIN Magnesium Hydroxide (Milk Of Magnesia 30 Ml Oral.Susp) 30 ml PO DAILY PRN PRN Reason: Constipation Melatonin (Melatonin 3 Mg Tablet) 6 mg PO BEDTIME PRN PRN Reason: Insomnia Methadone HCl (Methadone Hcl 20 Mg/2 Ml Oral.Conc) 65 mg PO DAILY [facility] Metoclopramide HCl (Metoclopramide Hcl 10 Mg/2 Ml Vial) 5 mg IVPUSH Q4H PRN PRN Reason: n/v not relieved by zofran Last Admin: 02/01/25 08:05 Dose: 5 mg Documented By: MARVIN Nystatin (Nystatin Oral Susp 500,000 Unit/5 Ml Oral.Susp) 400,000 unit PO QID [facility]; Protocol Last Admin: 02/01/25 11:52 Dose: 400,000 unit Documented By: MARVIN Ondansetron HCl (Ondansetron Hcl 4 Mg/2 Ml Vial) 4 mg IVPUSH Q4H PRN PRN Reason: Nausea and Vomiting Last Admin: 02/01/25 11:52 Dose: 4 mg Documented By: MARVIN Pantoprazole Sodium (Pantoprazole Sodium 40 Mg/10 Ml Vial) 40 mg IVPUSH DAILY@0630 [facility] Last Admin: 02/01/25 06:02 Dose: 40 mg Documented By: KHRIS Senna (Sennosides 8.6 Mg Tablet) 17.2 mg PO BEDTIME [facility] Last Admin: 01/31/25 22:31 Dose: Not Given Documented By: KHRIS Non-Admin Reason: Patient Refused Sodium Chloride (0.9 % Sodium Chloride Flush 3 Ml Syringe) 3 ml IVFLUSH QSHIFT [facility] Last Admin: 02/01/25 14:01 Dose: Not Given Documented By: MARVIN Non-Admin Reason: IV Running Labs 01/31/25 06:13 02/01/25 10:24 Labs: Laboratory Results - last 24 hr 01/31/25 01/31/25 02/01/25 15:31 20:25 06:58 Hold Purple Top Anion Gap Estim Creat Clear Calc Estimated GFR POC Glucose 216 H 238 H 249 H Random Glucose Calcium 02/01/25 02/01/25 02/01/25 10:20 10:24 11:09 Hold Purple Top SEE NOTE Anion Gap 14 Estim Creat Clear Calc 132.2 Estimated GFR > 60 POC Glucose 231 H Random Glucose 250 H Calcium 9.0 Microbiology Microbiology Results: Microbiology 01/29/25 23:14 Blood Culture - Preliminary Blood - Venous No growth after 48 hours. 01/29/25 23:14 Blood Culture - Preliminary Blood - Venous No growth after 48 hours. 01/30/25 14:50 Urine Culture - Final Urine clean catch - Clean Catch Midstream No growth. Assessment and Plan (1) Cyclic vomiting syndrome: Status: Acute (2) Intractable nausea and vomiting: Status: Acute Plan d3 for 39yo F with obesity, PCOS, OUD on methadone, chronic THC use, DM presenting with intractable N/V N/V - likely cyclic vomiting with component of cannabinoid hyperemesis, DM gastroparesis; pt states she never started Trulicity - Advanced to clears with little tolerance, IV fluids, IV ondansetron + metoclopramide, IV PPI - counseled against THC use OUD - vomited methadone but hopefully now tolerating, consulted Addiction Medicine, resume at 50 mg/d and titrate back up to 65 mg/d UTI - ceftriaxone 01/29, UCx pending thrush - HIV negative, continue nystatin leukocytosis - likely reactive; improved HTN - amlodipine, lisinopril neuropathy - duloxetine adrenal nodule 2.7 cm - outpt follow-up DM2 - A1c 8.9 - levar-dose lipsro VTE ppx - enoxaparin dispo - home eventually In my clinical judgment, the patient requires continued inpatient hospitalization for the following reasons: PO intolerance Total time managing care of this patient today: 35 minutes. Quality Stroke Does the patient have a stroke diagnosis?: No Reason for No Anti-thrombotic by Day Two: N/A - Med Ordered VTE Prior VTE?: No VTE Risk Level:: Medical - moderate - high VTE Device Contraindication: N/A - Device Ordered VTE Drug Contraindication: N/A - Med Ordered
[2025-02-01 15:48] LABS: Glucose, Whole Blood 266 mg/dL (60-115)
[2025-02-01 21:15] LABS: Glucose, Whole Blood 196 mg/dL (60-115)
[2025-02-01] MEDS: Enoxaparin Sodium 40 MG/0.4 ML SYRINGE SUBCUT (21:21)
[2025-02-01] MEDS: cefTRIAXone sodium 1 GM VIAL IVPUSH (21:21)
[2025-02-01] MEDS: 0.9 % Sodium Chloride Flush 3 ML SYRINGE IVFLUSH (23:57)
[2025-02-02 04:00] VITALS: BP 137/86; PULSE 94; RESP 18; TEMP 36.2; O2SAT 99
[2025-02-02 06:47] LABS: Anion Gap 11 (12-20); Blood Urea Nitrogen 6 mg/dL (9-16); Calcium 8.5 mg/dL (8.4-10.2); Carbon Dioxide 28 mmol/L (22-29); Chloride 101 mmol/L (96-108); Creatinine Clr Calc Pharmacy 144.5; Estimated Glomerular Filt Rate > 60; Glucose Random 203 mg/dL (60-115); Potassium 3.3 mmol/L (3.3-5.1); Sodium 137 mmol/L (135-145)
[2025-02-02 07:25] LABS: Glucose, Whole Blood 246 mg/dL (60-115)
[2025-02-02 07:27] VITALS: BP 183/99; PULSE 91; RESP 20; TEMP 36.4; O2SAT 96
[2025-02-02] MEDS: Nystatin Oral Susp 500,000 UNIT/5 ML ORAL.SUSP 400000 UNIT PO ×2 (08:00→12:21)
[2025-02-02] MEDS: lisinopriL 20 MG TABLET PO (08:01)
[2025-02-02] MEDS: amLODIPine Besylate 5 MG TABLET PO (08:01)
[2025-02-02] MEDS: ondansetron HCL 4 MG/2 ML VIAL IVPUSH (08:01)
[2025-02-02] MEDS: DULoxetine HCl 30 MG CAPSULE.DR PO (08:01)
[2025-02-02] MEDS: Insulin Lispro 100 UNIT/ML 3 ML VIAL SUBCUT ×2 (08:02→12:19)
[2025-02-02] MEDS: methADONE HCl 20 MG/2 ML ORAL.CONC 65 MG PO (08:03)
[2025-02-02] MEDS: 0.9 % Sodium Chloride Flush 3 ML SYRINGE IVFLUSH (08:03)
--- NOTE | 2025-02-02 08:48 | PM.DS ---
DS: Providers Provider Date of Service: 02/02/25 Date of admission: 01/29/25 19:31 Date of discharge: 02/02/25 Primary care physician: None Physician Consults: 01/30/25 08:50 Addiction Medicine Provider Routine Consulting Provider: Addiction Covering Reason for consultation: methadone pt, unable to take POs last 3d 01/30/25 18:02 Consult to Wound Care Routine Reason for consultation: right great toe chronic DM wound 02/01/25 09:51 Inpt - Recovery Team Routine Comment: Reason for consultation: BH/BRIAN eval DS: Diagnosis Discharge Diagnosis (1) Cyclic vomiting syndrome: Status: Acute (2) Intractable nausea and vomiting: Status: Acute DS: Summary Hospital Course Hospital Course: admission hpi Chief Complaint: N/V Received admission request 19:26 PM. Patient is a 39-year-old female with past history of morbid obesity, PCOS, opioid use disorder now on methadone 90 mg daily, history of alcohol use in her 20s, recent UTI, diverticulosis, gallbladder sludge, left adrenal gland nodule, recent colitis, Hepatic steatosis, chronic marijuana use presents to the emergency department with persistent and initially intractable nausea and vomiting. Patient states her symptoms started on Sunday. Prior to that, patient was feeling well. Patient has not been using marijuana for the last 3 days and has also not been able to use her methadone for the last 3 days due to the nausea and vomiting. Patient denies any withdrawal symptoms. patient denies any chest pain or tachycardia. patient is not diaphoretic. Patient has not had a bowel movement in 3 days as well. Patient denies any chest pain, shortness of breath at rest or with exertion, headache or visual changes. Patient has not had any known fever or chills. Patient is reporting mild abdominal tenderness in the mid epigastric region. Patient initially stated she was not taking a GLP 1 but her med list contains Trulicity. Lactic acid ordered stat. Bowel sounds diminished throughout. Concern for possible ileus versus bowel obstruction, noting pt is possibly on GLP-1. CT scan abd and pelvis ordered stat with IV contrast. Patient was seen 01/05/2025 in the emergency department and was told that she had a urinary tract infection. Patient received antibiotics at that point. In addition CT scan noted diverticulosis without diverticulitis, gallbladder sludge, distal colitis, left adrenal gland nodule 2.4 cm, and fatty liver. CXR, UA with reflex also ordered to rule out other sources of infection noting pt's WBCs are 16.7, PLTs elevated 409K. Blood cultures X2 ordered. hospial course: 39yo F with obesity, PCOS, OUD on methadone, chronic THC use, DM presenting with intractable N/V likely from cyclic vomiting with component of cannabinoid hyperemesis, DM gastroparesis; pt states she never started Trulicity as recommended. Her management consisted of IVF, hydration, antiemtics and advancing diet. Canabis avoidance has been discussed in detail. OUD-methadone UTI - ceftriaxone 01/29, UCx no growth, change to ceftin po for 2 more days thrush - HIV negative, continue nystatin leukocytosis - likely reactive; improved HTN - amlodipine, lisinopril neuropathy - duloxetine adrenal nodule 2.7 cm - outpt follow-up DM2 - A1c 8.9 - levar-dose lipsro, take trulicity as recommended VTE ppx - enoxaparin Time Attestation Discharge Coordination Time (in mins): 45 Quality: Safe Use of Opioids Does Pt have an Active Cancer Diagnosis on the Problem List?: No Quality: Stroke Does the patient have a stroke diagnosis?: No Physical Exam Vital Signs: Vital Signs: Last Vital Signs Temp 97.6 F 02/02/25 07:27 Pulse 91 02/02/25 07:27 Resp 20 02/02/25 07:27 BP 183/99 H 02/02/25 07:27 Pulse Ox 96 02/02/25 07:27 O2 Del Method Room Air 02/02/25 07:27 BMI result Body Mass Index 43.3 Gen: in no acute distress Lungs: clear to auscultation bilaterally Heart: regular rate and rhythm, no murmurs Abd: soft, obese, generalized tenderness, non-distended Ext: no edema Skin: warm/well-perfused Neuro: alert and oriented x3, no focal findings Psych: appropriate affect DS: Data Data Completed and Pending Completed studies during hospitalization [Text1]: Procedures Drainage of Buttock Subcutaneous Tissue and Fascia, Open Approach (02/21/24) Insertion of Infusion Device into Right Basilic Vein, Percutaneous Approach (02/28/24) Insertion of Infusion Device into Superior Vena Cava, Percutaneous Approach (07/03/24) Insertion of Infusion Device into Upper Vein, Percutaneous Approach (02/21/24) Ultrasonography of Superior Vena Cava, Guidance (07/03/24) Labs on day of discharge: Laboratory Results - last 24 hr 02/01/25 02/01/25 02/01/25 10:20 10:24 11:09 Hold Purple Top SEE NOTE Sodium 136 Potassium 3.9 Chloride 100 Carbon Dioxide 26 Anion Gap 14 BUN 6 L Creatinine 0.82 Estim Creat Clear Calc 132.2 Estimated GFR > 60 POC Glucose 231 H Random Glucose 250 H Calcium 9.0 02/01/25 02/01/25 02/02/25 15:37 21:11 05:52 Hold Purple Top Sodium 137 Potassium 3.3 Chloride 101 Carbon Dioxide 28 Anion Gap 11 L BUN 6 L Creatinine 0.75 Estim Creat Clear Calc 144.5 Estimated GFR > 60 POC Glucose 266 H 196 H Random Glucose 203 H Calcium 8.5 02/02/25 07:13 Hold Purple Top Sodium Potassium Chloride Carbon Dioxide Anion Gap BUN Creatinine Estim Creat Clear Calc Estimated GFR POC Glucose 246 H Random Glucose Calcium Preliminary micro results at discharge 01/29/25 23:14 Blood Culture - Preliminary Blood - Venous No growth after 48 hours. 01/29/25 23:14 Blood Culture - Preliminary Blood - Venous No growth after 48 hours. Discharge Plan Discharge Anticipated Discharge Date/Time: 02/02/25 09:00 Patient Disposition: Home, Self-Care Discharge Diagnosis: Cyclical vomiting Referrals: [facility] Jeremy Napoles [Provider Group] - 02/03/25 (Please present with your last dose letter and hospital discharge paperwork ) Physician,None [Primary Care Provider] - 1 Week Discharge Medications: New ondansetron 4 mg tablet,disintegrating 4 mg PO Q8H PRN (Reason: nausea and vomiting) Qty: 10 0RF cefuroxime axetil 250 mg tablet 250 mg PO BID 2 Days Qty: 4 0RF Continued methadone 10 mg/mL Concentrate 90 mg PO DAILY Rx Instructions: [facility] (BRENDAN) FreeStyle Franklin 3 [place] Misc See Rx Instructions .ROUTE .MEDSUPPLY Qty: 1 0RF Rx Instructions: for use with glucose sensor lisinopril 20 mg tablet 20 mg PO DAILY 90 Days Qty: 90 1RF amlodipine 5 mg tablet 5 mg PO DAILY Qty: 90 1RF (DME) FreeStyle Lite Strips Strip See Rx Instructions .Route Qty: 100 6RF Rx Instructions: As directed tests 3 X/day insulin lispro [Admelog SoloStar U-100 Insulin] 100 unit/mL insulin pen See Rx Instructions .ROUTE .COMPLEX MDD 130 Rx Instructions: 80-100 6 units 101-150 18 units 151-200 22 units 201-250 24 units 251-300 28 units 301-350 30 units over 350 32 units over 300 check ketones subcutaneously 4 times a day; before meals and bedtime. insulin degludec [Tresiba FlexTouch U-200] 200 unit/mL (3 mL) insulin pen 66 unit subcut BEDTIME esomeprazole magnesium [Nexium] 20 mg Capsule,Delayed Release(Dr/Ec) 20 mg PO DAILY@0630 (DME) lancets [FreeStyle Lancets] 28 gauge misc See Rx Instructions .ROUTE .MEDSUPPLY Qty: 100 1RF Rx Instructions: 3 times per day (DME) Ketone Urine Test Strip See Rx Instructions .ROUTE .MEDSUPPLY Qty: 25 2RF Rx Instructions: prn qid glucose over 250, nausea, vomiting illness (DME) pen needle, diabetic [BD Edel 2nd Gen Pen Needle] 32 gauge x 5/32 needle See Rx Instructions .ROUTE .MEDSUPPLY Qty: 200 11RF Rx Instructions: qid (DME) FreeStyle Franklin 3 Plus Sensor Device See Rx Instructions .ROUTE .MEDSUPPLY Qty: 6 3RF Rx Instructions: every 15 days for continuous use duloxetine [Cymbalta] 30 mg capsule,delayed release(DR/EC) 30 mg PO DAILY 90 Days Qty: 90 0RF Discharge Orders: Discharge Order (Routine); Ordered 02/02/25 Ordered By: Nael Richardson Diet: Advance to usual diet Activity on Discharge: As tolerated Stand Alone Forms: Patient Portal Discharge page Print Language: Armenian Activity Restrictions/Additional Instructions: Topical Wound Care Recommendations: Right Great Toe - Protect from trauma, paint with Betadine and cover with dry gauze when walking and standing for longer periods of time. Continue followup outpt with Podiatry. Care Plan Goals: recovery from cyclical vomiting Health Concerns: recurent cyclical vomiting from marijuana use Plan of Treatment: avoid canabis Assessment: see above Discharge Date/Time: 02/02/25 15:21
--- NOTE | 2025-02-02 11:30 | HO.WOUND ---
Wound Consult: Initial 39yr old?female admitted to [facility] – [place], [place] on 01/29/25 - See progress notes and H&P for detailed history.? Wound consult placed for Right Great Toe.? Patient agreeable to assessment and photo documentation.? 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 She reports she has follow up for ortho shoe fitting. The right great toe callus is dry and thickened. It remains intact at this time. Patient was educated that at this time to keep dry and protected. Was advised to not use foam dressing as they have the potential to donate moisture. The goal is to keep the callus dry and continue topical treatment with outpt Podiatry. Right great toe - no open tissue noted - dry stained skin from recent opening. Non observed now. Cleansed with Betadine. Recommendations: 1. Provide adequate and supplemental nutrition.? 2. When applicable maintain blood glucose levels per Providers order. Right Great Toe - Protect from trauma, paint with Betadine and cover with dry gauze when walking and standing for longer periods of time. Continue followup outpt with Podiatry. Re-consult wound care Nurse for wound deterioration or wound changes.
[2025-02-02 11:41] LABS: Glucose, Whole Blood 238 mg/dL (60-115)
[2025-02-02 12:00] VITALS: BP 138/94; PULSE 100; RESP 18; TEMP 36.2; O2SAT 98
--- NOTE | 2025-02-02 14:07 | MHC.CM.PN ---
Patient has been medically cleared for dc to home today, self care.
== END 2025-02-02 15:21 | disposition home or self-care (01) | DRG 249 ==
LOC: HO.ED 19:41 → HO.EDOVER 19:50 → HO.IMC 01-30 15:21
PROVIDERS: Family Medicine; Nurse Practitioner Family; Physician Assistant; Physician Assistant Medical; Admitting Provider Internal Medicine; Emergency Provider Emergency Medicine; Visit Provider Internal Medicine
DX: R11.2 Nausea with vomiting, unspecified (principal); B37.0 Candidal stomatitis; E11.40 Type 2 diabetes mellitus with diabetic neuropathy, unspecified; K31.84 Gastroparesis; E11.43 Type 2 diabetes mellitus with diabetic autonomic (poly)neuropathy; E28.2 Polycystic ovarian syndrome; F12.90 Cannabis use, unspecified, uncomplicated; N39.0 Urinary tract infection, site not specified; I10 Essential (primary) hypertension; E27.9 Disorder of adrenal gland, unspecified; F11.23 Opioid dependence with withdrawal; E66.01 Morbid (severe) obesity due to excess calories; Z68.41 Body mass index [BMI] 40.0-44.9, adult; Z91.148 Patient's other noncompliance with medication regimen for other reason; Z71.3 Dietary counseling and surveillance; Z79.4 Long term (current) use of insulin; Z79.899 Other long term (current) drug therapy
CPT/HCPCS: 36415; 71045; 74177; 80048; 80053; 81001; 82947; 83036; 83605; 83690; 83735; 84702; 85025; 85027; 86140; 87040; 87086; 87389; 93005; 99285; J0696; J1171; J1200; J1650; J2270; J2405; J2470; J2765; J3360; J7120; Q9967

== ENCOUNTER 2025-01-29 19:31 | Outpatient (BNV) | payer OTHER, SELFPAY | END 2025-01-29 20:15 | PROVIDERS: Admitting Provider Internal Medicine; Emergency Provider Emergency Medicine; Visit Provider Student in an Organized Health Care Education/Training Program | DX: D35.02 Benign neoplasm of left adrenal gland (principal); D72.829 Elevated white blood cell count, unspecified | CPT/HCPCS: 71045; 74177 ==

== ENCOUNTER 2025-01-29 19:31 | Outpatient (BNV) | payer OTHER, SELFPAY | END 2025-01-29 19:38 | PROVIDERS: Admitting Provider Internal Medicine; Emergency Provider Emergency Medicine; Visit Provider Internal Medicine Cardiovascular Disease | DX: I10 Essential (primary) hypertension (principal) | CPT/HCPCS: 93010 ==

== ENCOUNTER → 2025-01-29 19:31 | Outpatient (BNV) | payer OTHER, SELFPAY | PROVIDERS: Admitting Provider Internal Medicine; Emergency Provider Emergency Medicine; Visit Provider Nurse Practitioner Psychiatric/Mental Health | DX: F11.21 Opioid dependence, in remission (principal) | CPT/HCPCS: 99231 ==

== ENCOUNTER → 2025-01-29 19:31 | Outpatient (BNV) | payer OTHER, SELFPAY | PROVIDERS: Admitting Provider Internal Medicine; Emergency Provider Emergency Medicine; Visit Provider Nurse Practitioner Family | DX: R11.2 Nausea with vomiting, unspecified (principal) | CPT/HCPCS: 99223 ==

== ENCOUNTER 2025-02-12 12:25 | Outpatient (AMB) | payer OTHER, SELFPAY ==
--- NOTE | 2025-02-12 12:27 | A.OFFVIS_ITS ---
Vital Signs 02/12/25 12:28 Height 5 ft 8 in Weight 295 lb 6.711 oz BMI 44.9 BP 130/80 Blood Pressure Location Rt brachial Position Sitting Pulse 97 Pulse Source Pulse Oximeter Pulse Oximetry (%) 98 Oxygen Delivery Method Room Air Intake Visit Reasons: T2DM Intake Note: Patient presents today for a follow-up on Type 2 Diabetes Mellitus: Last Diabetic eye exam was on: OVER DUE Last Podiatry exam was on: Patient does not see a Brake Liner Most recent HbA1c: 8.6%, 02/12/2025 Random Glucose- 245 mg/dL, Today Money Position Officer Required: No Accompanied by: Self / Same As Patient Allergies metformin Adverse Reaction (Intermediate, Verified 01/29/25 14:27) Nausea HPI Comments Details: 39 YO female who is seen in f/u for type 2 diabetes. She was seen in consult 07/09/2024 with an A1c of 12.3% and has been followed intensively since that time. Most recent A1c 02/12/25 8.6%, 10/17/2023 9.3% down from 12.3%. Basal insulin has been changed to Tresiba and her basal/ bolus dosing has been intensified with each visit to lower glucose average. At the time of her initial visit labs were ordered to determine the type of diabetes which have not yet been done (lab had difficulty drawing blood work). She will attempt to have these done again. I have also ordered an IGF-1 to rule out growth hormone excess and hormonal labs as patient has PCOS and plans to see yard spotter about this. Additionally, she had a recent abt CT which showed a left adrenal adenoma 2.7 x 1.9. Patient is asymptomatic. She was in the ER several weeks ago with cyclical vomiting related to either marijuana use and/or gastroparesis. She was admitted overnight for IV hydration and Zofran and also treated for a UTI. The patient has a history of opioid use disorder on methadone, abscess of the buttocks requiring hospitalization 2023, osteomyelitis and cellulitis of the right foot requiring hospitalization in July 2024 status post 6 weeks antibiotic therapy and recently seen by I and D 09/10/2024 with no additional follow-up needed unless recurrence. Foot ulcer has healed and she is no longer going to the wound center however has been instructed to return if the area opens op. She has additional prior history of uncontrolled DM,gastroparesis, obesity, PCOS, opioid use disorder, history of nausea. During her hospital stay she was seen by vascular and circulation to the right leg was widely patent without intervention needed. She is now followed by Dr. Garcia her new podiatry She is not using street drugs. She continues weekly follow-up with [facility] in [place] daily and once weekly for clinical counseling. She has not had a primary care provider in quite some time and had been getting her medication through the ER. She was recently seen by CDE and referred to a program to get healthy meals. Initially diagnosed with T2DM at age 25 y.o. Was initially started on treatment with diet and was able to bring her numbers down with 50 pound weight loss. metformin caused nausea Tresiba 66 units admelog tid before meals 80-100 6 units 101-150 18 units 151-200 22 units 201-250 24 units 251-300 28 units and follow dka protocol 301-350 30 units and follow dka protocol over 350 32 units and follow dka protocol Freestyle fabiano sensor 3 average glucose: 225 14 day continuous glucose sensor report reviewed Glucose Management indicator 8.7 % Time CGM active 96 % TIme in ranges: 26 % very high (above 250) 55 % high (181-250) 19 % in range (70-180] 0 % low (69-55) 0 % very low (below 54) 21% Glucose variability (target <36%) Interpretation of CGMS running 75 points above target especially overnight Reports low sugars none recent. Treats lows with glucose tabs Family history of T2DM in []. No retinopathy: Has eyes checked yearly, last eye exam scheduled for 09/12/24 Has neuropathy some shooting pain better on cymbalta does not see podiatry, referred several visits ago, urea prescribed for dry skin and has capcasin cream urea not covered she was given a different cream by her telecommunication systems designer followed by Dr. Washington. He will be providing dm shoes. No known nephropathy, on andrew-i microalbumin 15.0 09/18/24 08/17/2024 eGFR>60 Not on statin no lipid profile in EHR Has been ordered Denies CAD. Denies chest pain, dyspnea or symptoms of claudication SHe feels her depression had been improving she is using trazodone p.r.n. [place] discouraged by recent gastro issues and her dog was just put down this week. She is going to the substance abuse clinic and is working with new counselor. Works for [employer] 4-6 hours per day Will be applying for disability Diet: break yogurt or boost drink lunch salads with protein few times per week lean cusine dinner chick sand salad some pizza at night eats: poptarts cheese sticks fruit Recently seen by Elli Pizano RD who recommended: Work on reducing total carb per meal to 75 g or less following healthy plate method and 0-20 g as snack 1-2 /day if needed Include lean protein foods (cottage cheese, eggs,poultry, tofu, beans ) in your meal s Try as bedtime snack cottage cheese with applesauce practice mindful eating She has been working on this She has a history of PCOS: She has not had a period in at least several years and is planning to see yard spotter She did have excess facial hair in her teen early 20s some scalp loss. [facility] Medical History (Updated 02/18/25 @ 11:12 by Kaylynn Abrams NP) History of PCOS Adrenal adenoma Morbid obesity Neuropathy History of open wound of lower extremity Opioid use disorder Hypertension Sepsis Depression PCOS (polycystic ovarian syndrome) Rash Polysubstance (excluding opioids) dependence, daily use Methadone maintenance therapy patient Anxiety and depression Diabetes Surgical History Hx of removal of cyst Family History Father No problems noted. Mother Hx of diabetes mellitus Sister Heart disease Social History Household Members: Children Household Members Other:: 2 Housing: Apartment Do you presently have visiting nurse or other home services: No Alcohol intake: former Patient Tobacco Use Status: Never used Tobacco Tobacco use type: Cigarette Cigarette Packs Per Day: 3 Cigarettes Per Day: 60.0 Years Smoked: 2 e-Cigarette/Vaping Use: Never Used Second Hand Smoke Exposure: No Substance Use Type: Marijuana Advance Directives Date on File: 01/11/22 service: No Current occupational status: unemployed Physical Exam Vital Signs: Last Vital Signs Pulse 97 02/12/25 12:28 BP 130/80 02/12/25 12:28 Pulse Ox 98 02/12/25 12:28 Oxygen Delivery Method Room Air 02/12/25 12:28 BMI result Body Mass Index 44.9 Const Other: Absence of Cushingoid features. Absence of acromegalic features. Neck exam reveals nl size thyroid about 15 gms. No thyroid nodules palpable. Heart S1 S2, Reg R/R. No M/R G. Skin exam reveals absence of vitiligo or acanthosis nigricans. Visual exam of foot performed. No ulcerations or open lesions. No inter digit maceration or fissuring. No onychomycosis, no callouses. Sensation intact to monofilament exam. Vibratory sensation is normal with 128 Hz tuning fork. Skin dry Results Reviewed Results Reviewed: Laboratory Last Values Glucose (Clinic) 245 mg/dL (60-115) H 02/12/25 12:34 Assessment & Plan Assessment & Plan (1) Diabetes: Code(s): E11.9 - Type 2 diabetes mellitus without complications Category: Medical Plan: 31-year-old type 2 diabetic with neuropathy with improving A1c. A1cs historically have been in the 12%. She is now down to 8.6% in his consistently taking her MDI. Scale adjusted She we will be seen back in 2 weeks. She was again counseled to have blood work done to determine type 1 versus type 2 The patient had an opportunity to ask questions regarding treatment plan. The patient expressed understanding and agreement with the above treatment plan. The patient is aware they should contact our office by phone for worsening glucose readings or for any low blood sugars which may warrant a change in diabetes medication. Compliance is encouraged with medications and any followup testing/consults which may have been ordered. (2) PCOS (polycystic ovarian syndrome): Code(s): E28.2 - Polycystic ovarian syndrome Category: Medical Plan: She has a history of PCOS and plans to see a yard spotter. I have ordered a workup for this. She has been referred to Dr. Brooks. (3) Adrenal adenoma: Comment: 01/2025 left 2.7 x 1.9 lab work up pending Code(s): D35.00 - Benign neoplasm of unspecified adrenal gland Category: Medical Plan: She had an MRI done last month which showed an incidental finding of the left adrenal adenoma 2.7 x 1.9. She is asymptomatic. She was given lab orders to rule pheo/cushings. She has been referred to Dr. Brooks. Orders: Orders Metanephrines, Plasma 02/12/25 D35.00 - Benign neoplasm of unspecified adrenal gland Adrenocorticotropic Hormone 02/12/25 D35.00 - Benign neoplasm of unspecified adrenal gland Follicle Stimulating Hormone Today Z87.42 - Personal history of other diseases of the female genital tract 17 Hydroxyprogesterone Today Z87.42 - Personal history of other diseases of the female genital tract Testosterone, Free/Total Today Z87.42 - Personal history of other diseases of the female genital tract Estrad Free (Tot Ultra + Free) Today E28.2 - Polycystic ovarian syndrome Cortisol Random 02/12/25 D35.00 - Benign neoplasm of unspecified adrenal gland DHEA Sulfate Today Z87.42 - Personal history of other diseases of the female genital tract Lutenizing Hormone Today Z87.42 - Personal history of other diseases of the female genital tract Medications: New nut.tx.gluc intol,lf,soy-fiber 0.07-0.8 gram-kcal/mL (Boost Glucose Control) 240 ea PO DAILY 8,110 mL 6RF glucose control 30 days MDD 240 ml E11.9 - Type 2 diabetes mellitus without complications Patient Instructions: Check your feet daily looking for any signs of infection, drainage, redness, ulceration and seek medical attention if this occurs. Break in shoes gradually and do not wear open-toed shoes or walk stocking footed or barefooted. The patient was counseled to achieve a target A1C of 7% (154 avg). Fasting blood sugars should be 90-130 in the morning and less than 180 two hours after meals. Reviewed the relationship between poor diabetic control and the development of complications. Always carry a sugar source Coding Level of Care Code Est Pt Level 4 (02194) Complex EM visit Add On G2211 Diagnoses Diabetes E11.9 PCOS (polycystic ovarian syndrome) E28.2 Adrenal adenoma D35.00
[2025-02-12 12:28] VITALS: BP 130/80; PULSE 97; O2SAT 98; BMI 44.9
[2025-02-12 12:37] LABS: Glucose, Whole Blood 245 mg/dL (60-115)
== END 2025-02-12 13:00 | disposition home or self-care (01) ==
LOC: HO.ENCR 12:25
PROVIDERS: Visit Provider Nurse Practitioner Adult Health
DX: E11.9 Type 2 diabetes mellitus without complications (principal); E28.2 Polycystic ovarian syndrome; D35.00 Benign neoplasm of unspecified adrenal gland
CPT/HCPCS: 99214; G2211

== ENCOUNTER → 2025-02-12 12:25 | Outpatient (BNVA) | payer OTHER, SELFPAY | PROVIDERS: Visit Provider Nurse Practitioner Adult Health | DX: D35.00 Benign neoplasm of unspecified adrenal gland (principal); E11.9 Type 2 diabetes mellitus without complications; E28.2 Polycystic ovarian syndrome | CPT/HCPCS: 82947; 99212 ==

== ENCOUNTER 2025-03-05 13:44 | Outpatient (AMB) | payer OTHER, SELFPAY ==
--- NOTE | 2025-03-05 14:08 | A.OFFVIS_ITS ---
Intake Intake Visit Reasons: 60 min Bacon Skinner Required: No Accompanied by: Self / Same As Patient Allergies metformin Adverse Reaction (Intermediate, Verified 01/29/25 14:27) Nausea HPI Comprehensive Diabetes Asmnt Most Recent Diabetes Results: 2 Creatinine, (0.5-1.4) 0.75 mg/dL 02/02/25 BUN, (9-16) 6 mg/dL L 02/02/25 Sodium, (135-145) 137 mmol/L 02/02/25 Potassium, (3.3-5.1) 3.3 mmol/L 02/02/25 Chloride, (96-108) 101 mmol/L 02/02/25 Carbon Dioxide, (22-29) 28 mmol/L 02/02/25 Calcium, (8.4-10.2) 8.5 mg/dL 02/02/25 AST, (5-31) 19 U/L 01/30/25 ALT, (0-31) 14 U/L 01/30/25 Total Protein, (6.5-8.0) 8.0 g/dL 01/30/25 Albumin, (3.5-5.0) 4.0 g/dL 01/30/25 [facility] Medical History (Updated 02/18/25 @ 11:12 by Kaylynn Abrams NP) History of PCOS Adrenal adenoma Morbid obesity Neuropathy History of open wound of lower extremity Opioid use disorder Hypertension Sepsis Depression PCOS (polycystic ovarian syndrome) Rash Polysubstance (excluding opioids) dependence, daily use Methadone maintenance therapy patient Anxiety and depression Diabetes Surgical History Hx of removal of cyst Family History Father No problems noted. Mother Hx of diabetes mellitus Sister Heart disease Social History Household Members: Children Household Members Other:: 2 Housing: Apartment Do you presently have visiting nurse or other home services: No Alcohol intake: former Patient Tobacco Use Status: Never used Tobacco Tobacco use type: Cigarette Cigarette Packs Per Day: 3 Cigarettes Per Day: 60.0 Years Smoked: 2 e-Cigarette/Vaping Use: Never Used Second Hand Smoke Exposure: No Substance Use Type: Marijuana Advance Directives Date on File: 01/11/22 service: No Current occupational status: unemployed Assessment & Plan Assessment & Plan (1) Diabetes: Code(s): E11.9 - Type 2 diabetes mellitus without complications Plan: Diabetes self-management education and support participation record Assessment/scale: 1= needs instructed? 2= needs review? 3= comprehend keep point? 4= demonstrates understanding/ competent? NC= Not Covered Topics Learning Objective: Initial visit Initial or post srvc Initial or post srvc Initial or post srvc Initial or post srvc Initial or post srvc Post srvc Comments Pre Edu-assessment/plan Outcome or reassess O utcome or reassess Outcome or reassess Outcome or reassess Outcome or reassess Outcome or reassess Diabetes pathophysiology 1 3 Healthy eating 2 3 Being active 2 3 Taking medication 1 3 Monitoring glucose 1 3 Acute complication 2 3 Chronic complicated 2 3 Lifestyle and healthy coping 1 3 Diabetes distress in support 1 3 ?Diabetes pathophysiology: ?Defined diabetes med identify own type of diabetes; list 3 options for treating diabetes Healthy eating: ?Described effect of type, amount and ?timing of food on blood glucose; list 3 methods for planning meal Being active: ?State effect of exercise on blood glucose level Taking medication: ?State effect of diabetes medications on diabetes; name diabetes medications taking, action and side effects Monitoring glucose: ?Identify recommended blood glucose targets and personal target Acute complication: ?List symptoms and treatment of hyper and hypoglycemia, DKA, sick day guidelines and guidelines for severe weather or situations of crisis and diabetes supply manage Chronic complication: ?To find the relationship of blood glucose levels to long- term complications of diabetes in screening and preventative measures Lifestyle and healthy coping: ?Described lifestyle and healthy coping strategies to rule out diabetes self-management Diabetes to stress and support: ?Recognize Diabetes to stress and be able to identified support options Learning objectives: The patient was provided with verbal and written education on the following topics as outlined below. The patient met all learning objectives and was able to verbalize understanding and provide teach back of education topics discussed . The patient was provided with the opportunity to ask questions and all questions were answered. Patient Assessment Assess patient education level/literacy/barriers, A1c in 01/30/25 8.6% down from 12.3% in 07/2025. Encouraged patient to take mealtime insulin at 3am if eating and meal Exercise Medical clearance Effect of exercise on blood sugar Start slowly and gradually increase pace/duration over time Goal amount of exercise Checking blood glucose/have a source of carbs with you Diabetes Complications: ?Nephropathy :Kidney Disease ?diabetes can damage the kidneys, which is not only can cause them to fail but can make them lose their ability to filter waste from the blood? ?Retinopathy: Eye complications ?Retinopathy? is the commonest long-term complication of diabetes. It is leading cause of blindness Besides, Retinopathy- People with diabetes? are also prone to cataract and Glaucoma. ?Neuropathy: Nerve damage -It involves temporary or permanent damage to nerve tissue. Nerve tissue gets injured mainly due to decreased blood flow and rise in blood glucose levels. This damage can lead to pain , or loss of sensation it can also include sexual dysfunction in both men and women ? Infections poor healing: People with diabetes? have increased susceptibility to various infections, such as? pneumonias, pyelonephritis, carbuncles and diabetic ulcers. This may be due to poor blood supply, reduced cellular immunity or hyperglycemia. ?Heart Disease And Stroke: People with diabetes are four times more prone to develop Heart disease than those who do not have diabetes ?Depression: Feeling down once in awhile is normal, but some people feel sadness that just won't go away. Life for them seems hopeless. Feeling this way most of the day for two weeks or more is a sign of serious depression ?Gum Disease: People get gum disease when plaque destroys the gums and bone around the teeth. People with diabetes can get gum disease from having high blood glucose levels for a long time Lifestyle * Work * Travel * Stress management * Problem solving Know your goals * A1C * Blood sugar targets * Blood pressure * Cholesterol/LDL Urine microalbumin Smart Goal Assessment:Pt will start Trulicity 0.75 mg weekly Trulicity D/C'd New Goal:?Find a dentist by next visit Educational Materials: The patient was provided with the following written educational materials: ADCES 7 Healthy Behaviors Reducing Risks handout Patient Response to instructions: Comprehension of Instructions: Good Readiness to make changes: action How confident they feel about making changes: positive Portions of this note were created using voice recognition software, please excuse any words or phrases that may have been misinterpreted. Patient Instructions: Include regular daily activity. ADA recommends 30 minutes of exercise 5 days a week. Weight loss talk to PCP or Detective before starting new plan. Test blood sugar as directed; Fasting and 2hpp largest meal. Watch trends in results. Utilize results and to assess how food, physical activity and medications affect blood sugar results. Bring glucometer or CGM to next visit. Be knowledgeable about diabetes medication, its action, side effects, efficacy, toxicity, prescribed dosage, appropriate timing and frequency of administration, effect of missed and delayed doses and instructions for storage, travel and safety. Problem solving techniques to monitor hypo/hyperglycemia episodes and treatments. Reduce risk reduction behaviors, smoking cessation, regular eye, foot and dental examinations. Coding Level of Care Code Est Pt Level 1 (50547) Diagnoses Diabetes E11.9
== END 2025-03-05 14:36 | disposition home or self-care (01) ==
LOC: HO.ENCR 13:45
PROVIDERS: Visit Provider Registered Nurse Diabetes Educator
DX: E11.9 Type 2 diabetes mellitus without complications (principal)

== ENCOUNTER → 2025-03-05 13:44 | Outpatient (BNVA) | payer OTHER, SELFPAY | PROVIDERS: Visit Provider Registered Nurse Diabetes Educator | DX: E11.9 Type 2 diabetes mellitus without complications (principal) | CPT/HCPCS: 99211 ==

== ENCOUNTER → 2025-05-15 14:46 | Outpatient (BNV) | payer OTHER, SELFPAY | PROVIDERS: Visit Provider Radiology Body Imaging | DX: M86.671 Other chronic osteomyelitis, right ankle and foot (principal) | CPT/HCPCS: 73630 ==

== ENCOUNTER 2025-05-20 13:15 | Outpatient (AMB) | payer OTHER, SELFPAY ==
--- OUTSIDE RECORDS SUMMARY | 2025-03-31 06:00 | XMS_ITS ---
Author Organization [facility] Address [address] [place] [phone] Care Team Providers Care Electric Meter Installer Helper Name Role Phone Florinda Villalta Primary Care Provider Unavailab Liban Tyson Jr [phone] REASON FOR VISIT gastroparesis,abn findings gi tract Encounters Encounter Location Date Provider Diagnosis [facility] Outpatient [address] [place] [id number] 03/31/2025 Liban Bhatt Jr Plan Of Treatment No Information Progress Notes * FAUSTINAHAZELVICENTEOB:[birth year] (40 yo F)Acc No.[id number]:03/31/2025 EGD and COL/MAC Patient: COURTNEY CHACON Provider: Ranjit Bhatt MD :1985 A ge:40 Y S ex:Female Date:03/31/2025 Address:[address] [place], [place] [phone] Pcp:ANIRUDH Headley Subjective: * Chief Complaints: * [...] 0 03/31/2025 Generated for Printi ng/Faxing/eTransmitting on: 05/20/2025 04:57 PM EDT
--- OUTSIDE RECORDS SUMMARY | 2025-04-28 07:20 | XMS_ITS ---
Author Organization [facility] Address [address] [place] [phone] Care Team Providers Care Dimensional Engineer Name Role Phone Florinda Villalta Primary Care Provider Unavailab Liban Tyson Jr [phone] REASON FOR VISIT gastropsresis,abn findings in GI tract Encounters Encounter Location Date Provider Diagnosis [facility] Out[place] [address] [place] [id number] 04/28/2025 Liban Bhatt Jr Plan Of Treatment No Information Progress Notes * LIUDMILA WEEMSOB:[birth year] (40 yo F)Acc No.[id number]:04/28/2025 EGD and COL/MAC Patient: COURTNEY CHACON Provider: Ranjit Bhatt MD :1985 A ge:40 Y S ex:Female Date:04/28/2025 Address:[address] [place], [place] [phone] Pcp:ANIRUDH Headley Subjective: * Chief Complaints: * [...] Pending * Provider: Ranjit Bhatt MD Date: 04/28/2025 Generated for Marco Ai diana/Fajudith/eTransmitting on: 05/20/2025 04:57 PM EDT
--- NOTE | 2025-05-20 13:41 | A.OFFVIS_ITS ---
Intake Intake Visit Reasons: 60 min Quick Mixer Operator Required: No Accompanied by: Self / Same As Patient Allergies metformin Adverse Reaction (Intermediate, Verified 01/29/25 14:27) Nausea HPI Comprehensive Diabetes Asmnt Most Recent Diabetes Results: 2 Cholesterol, (<200) 213 mg/dL H 04/29/25 HDL Cholesterol, (>40) 35 mg/dL L 04/29/25 Triglycerides, (<150) 197 mg/dL H 04/29/25 Creatinine, (0.5-1.4) 0.76 mg/dL 04/29/25 BUN, (9-16) 11 mg/dL 04/29/25 Sodium, (135-145) 135 mmol/L 04/29/25 Potassium, (3.3-5.1) 4.1 mmol/L Δ 04/29/25 Chloride, (96-108) 101 mmol/L 04/29/25 Carbon Dioxide, (22-29) 25 mmol/L 04/29/25 Calcium, (8.4-10.2) 9.3 mg/dL Δ 04/29/25 AST, (5-31) 27 U/L 04/29/25 ALT, (0-31) 25 U/L 04/29/25 Total Protein, (6.5-8.0) 8.1 g/dL H 04/29/25 Albumin, (3.5-5.0) 4.0 g/dL 04/29/25 [facility] Medical History (Updated 02/18/25 @ 11:12 by Kaylynn Abrams NP) History of PCOS Adrenal adenoma Morbid obesity Neuropathy History of open wound of lower extremity Opioid use disorder Hypertension Sepsis Depression PCOS (polycystic ovarian syndrome) Rash Polysubstance (excluding opioids) dependence, daily use Methadone maintenance therapy patient Anxiety and depression Diabetes Surgical History Hx of removal of cyst Family History Father No problems noted. Mother Hx of diabetes mellitus Sister Heart disease Social History Household Members: Children Household Members Other:: 2 Housing: Apartment Do you presently have visiting nurse or other home services: No Alcohol intake: former Patient Tobacco Use Status: Never used Tobacco Tobacco use type: Cigarette Cigarette Packs Per Day: 3 Cigarettes Per Day: 60.0 Years Smoked: 2 e-Cigarette/Vaping Use: Never Used Second Hand Smoke Exposure: No Substance Use Type: Marijuana Advance Directives Date on File: 01/11/22 service: No Current occupational status: unemployed Assessment & Plan Assessment & Plan (1) Diabetes: Code(s): E11.9 - Type 2 diabetes mellitus without complications Plan: Personal Continuous Glucose Monitor: Patients CGM information reviewed, Pt uses Franklin 3+ Patient only had 3 days' worth of data since she had been out of sensors Last A1c on 04/29/2025 8.5%, A1c in January 2025 8.6% Patient reports that she and provider decided that she would not start on Trulicity due to gastroparesis at last provider visit She is currently on Tresiba U 200 86 units daily Lispro sliding scale She is intolerant metformin Patient also reports that she has multiple dietary indiscretions due to stress, she is having issues with transportation Reports that it is difficult to always have healthy food in the house, she does use her HIP benefit at [employer] in [place] 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 Gave patient adjustment to lispro scale Patient able to insert sensor independently at home without issue.? Portions of this note were created using voice recognition software, please excuse any words or phrases that may have been misinterpreted. Patient Instructions: Lispro Sliding Scale: 80-100 6 units 101-150 22 units 151-200 24 units 201-250 28 units 251-300 32 units 301-350 34 units over 350 36 units Add Protein to carb snacks For Snacks try: [email or web address]://[email or web address]/recipes/snacks Coding Level of Care Code Est Pt Level 1 (20733) Diagnoses Diabetes E11.9
--- OUTSIDE RECORDS SUMMARY | 2025-05-20 16:57 | XMS_ITS | Patient Health Record ---
Author Organization [facility] Address [address] [place] [address] Care Team Providers Care Rn Circulating Name Role Phone Florinda Villalta Primary Care Provider UnavailLiban Addison Jr Unavailable Allergies No Known Allergies Reason For Referral No Information Medications Medication SIG (Take, Route, Frequency, Duration) Notes Start Date End Date Status Lisinopril 20 MG 1 tablet Orally Once a day for 30 day(s) 03/11/2025 Active amLODIPine Besy-Benazepril HCl 5-10 MG as directed Orally 03/11/2025 Active Tresiba 100 UNIT/ML as directed Subcutaneous 03/11 Active DULoxetine HCl 30 MG 1 capsule Orally On ce a day for 30 day(s) 03/11/2025 Active Methadone HCl 40 MG 1 tablet in 4 ounces of water or juice Orally Once a day Active Insulin Lispro 100 UNIT/ML as directed Injection 03/11/2025 Active Immunizations Vaccine Route Administration Date Status Comme nts Influenza Unknown 03/11/2025 Refused Social History Tobacco Use: Social History Observation Description Date Details (start date - stop date) Never Smoker NA - NA Tobacco Control (Standard) Question Answer Notes Tobacco use: Nonsmoker AUDIT-C (Standard) Question Answer Notes Did you have a drink containing alcohol in the p ast year? No Points 0 Interpretation Negative Problems Problem Type SNOMED Code ICD Code Onset Dates Problem Status W/U Status Risk Notes Problem Gastroparesis (765495595) Gastroparesis (K31.84) Active confirmed Vital Signs Temperature 99.3 degrees Fahrenheit 03/11/2025 Blood pressure diastolic 01 mm Hg 03/11/2025 Height 68 in 03/11/2025 Blood pressure systolic 001 mm Hg 03/11/2025 Weight 299.8 lbs 03/11/2025 BMI 45.58 kg/m2 03/11/2025 Encounters Encounter Location Date Provider [facility] [address] [place] [address] 03/11/2025 Liban Bhatt Jr Gastroparesis K31.84 and Abn findings-GI tract R93.3 [facility] [address] [place] [address] 03/24/2025 Liban Bhatt Jr [facility] [address] [place] [address] 03/24/2025 Liban Bhatt Jr [facility] [address] [place] [address] 03/27/2025 Liban Bhatt Jr [facility] [address] [place] [phone] 04/27/2025 Liban Bhatt Jr Assessments Encounter Date Diagnosis (ICD Code) Assessment Notes Treatment Notes Treatment Clinical Notes Section Notes 03/11/2025 Gastroparesis (ICD-10 - K31.84) We will arrang e for upper endoscopy and colonoscopy for further evaluation of her symptoms, we discussed decreasing her long-acting insulin to one half dose the day before the prep and procedure as well as cutting out short acting insulin unless absolutely needed. Follow-up will be pending the results of her procedure. She is aware of risks and benefits and agrees to proceed. 03/11/2025 Abn findings-GI tract (ICD-10 - R93.3) We will arrange for upper endoscopy and colonoscopy for further evaluation of her symptoms, we discussed decreasing her long-acting insulin to one half dose the day before the prep and procedure as well as cutting out short acting insulin unless absolutely needed. Follow-up will be pending the results of her procedure. She is aware of risks and benefits and agrees to proceed. Plan Of Treatment Future Test Test Name Order Date UPPER GI ENDOSCOPY 03/11/2025 COLONOSCOPY 03/11/2025 Insurance Providers Payer Name Payer Address Payer Phone Subscriber Number Group Number Insured Name Patient Relationship to Insured Coverage Start Date Coverage End Date [facility] [address] [address] [place], [place] [id number] [phone] [id number] COURTNEY WEEMS Self - patient is the insured Medical (General) History Medical History History ICD Code diabetic hypertension fatty liver Hospitalization History Reason Date(Month/Year) vomiting
== END 2025-05-20 14:09 | disposition home or self-care (01) ==
LOC: HO.ENCR 13:16
PROVIDERS: Visit Provider Registered Nurse Diabetes Educator
DX: E11.9 Type 2 diabetes mellitus without complications (principal)

== ENCOUNTER → 2025-05-20 13:15 | Outpatient (BNVA) | payer OTHER, SELFPAY | PROVIDERS: Visit Provider Registered Nurse Diabetes Educator | DX: E11.9 Type 2 diabetes mellitus without complications (principal) | CPT/HCPCS: 99211 ==

== ENCOUNTER 2025-07-15 09:19 | Outpatient (AMB) | payer OTHER, SELFPAY ==
--- OUTSIDE RECORDS SUMMARY | 2025-03-31 05:00 | XMS_ITS ---
Author Organization [facility] Address [address] [place] [phone] Care Team Providers Care Methods Time Analyst Name Role Phone Florinda Villalta Primary Care Provider Unavailab Liban Tyson Jr REASON FOR VISIT gastroparesis,abn findings gi tract Encounters Encounter Location Date Provider Diagnosis [facility] Outpatient [address] [place] [id number] 03/31/2025 Liban Bhatt Jr Plan Of Treatment No Information Progress Notes * LIUDMILA WEEMSOB:[birth year] (40 yo F)Acc No.[id number]:03/31/2025 EGD and COL/MAC Patient: COURTNEY CHACON Provider: Ranjit Bhatt MD :1985 A ge:40 Y S ex:Female Date:03/31/2025 Address:[address] [place], [place] [id number] Pcp:ANIRUDH Headley Subjective: * Chief Complaints: * 1 . Gastroparesis,abn findings gi tract. * Medical History: Objective: * Vitals: Assessment: Plan: * Treatment: * * The named appointment provid er may or may not be the originator of this progress note, and it is not deemed complete until electronically signed by the appointment provider. Sign off status: Pending * Provider: Ranjit Bhatt MD Date: 0 03/31/2025 Generated for Printi ng/Faadig/eTransmitting on: 1 09/14/2024 10:14 AM EST
--- OUTSIDE RECORDS SUMMARY | 2025-04-28 06:20 | XMS_ITS ---
Author Organization [facility] Address [address] [place] [phone] Care Team Providers Care Collar Starcher Name Role Phone lForinda Villalta Primary Care Provider Unavailab Liban Tyson Jr [phone] REASON FOR VISIT gastropsresis,abn findings in GI tract Encounters Encounter Location Date Provider Diagnosis [facility] [place] [address] [place] [phone] 04/28/2025 Liban Bhatt Jr Plan Of Treatment No Information Progress Notes * LIUDMILA WEEMSOB:[birth year] (40 yo F)Acc No.[id number]:04/28/2025 EGD and COL/MAC Patient: COURTNEY CHACON Provider: Ranjit Bhatt MD :1985 A ge:40 Y S ex:Female Date:04/28/2025 Address:[address] [place], [place] [phone] Pcp:ANIRUDH Headley Subjective: * Chief Complaints: * 1 . gastropsresis,abn findings in GI tract. * Medical History: Objective: * Vitals: Assessment: Plan: * Treatment: * * The named appointment provid er may or may not be the originator of this progress note, and it is not deemed complete until electronically signed by the appointment provider. Sign off status: Pending * Provider: Ranjit Bhatt MD Date: 0 04/28/2025 Generated for Marco Ai diana/Carmen/eTransmitting on: 09/14/2024 10:14 AM EST
--- NOTE | 2025-07-15 09:29 | A.OFFVIS_ITS ---
Vital Signs 07/15/25 09:33 Height 5 ft 8 in Weight 280 lb BMI 42.6 Intake Visit Reasons: wound center referral Intake Note: Misty is a 40 year old female who presents today as a new patient for an evaluation of her right hallux wound. Patient states this has been an ongoing issue since last June and it is currently not infected. She is being Treated by [facility] care and she believes that the wound is getting better slowly. Her previous public stenographer diagnosed her with a dislocation of her right hallux but he would not treat the dislocation due to her wound. She mentions using IODOSORB to treat her wound as well this was provided by wound care Allergies metformin Adverse Reaction (Intermediate, Verified 01/29/25 14:27) Nausea HPI [facility] wound center referral: Details: 30-year-old female with past medical history of diabetes mellitus type 2, hypertension, chronic right hallux wound with history of osteomyelitis, presents for right big toe deformity. She states that 1 year ago she had a blister form on her right big toe which eventually became infected to the level of the bone. She then underwent IV antibiotic treatment. The wound had eventually healed after extensive wound care. Over the past few months, the wound had returned. She then noticed her right big toe sticking up without any history of trauma or injury however she does endorse a history of neuropathy. She is currently be seeing at the [facility] once a week. 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 [facility] Medical History (Updated 07/15/25 @ 10:19 by Fer Fernandes DPM) History of PCOS Adrenal adenoma Morbid obesity Neuropathy History of open wound of lower extremity Opioid use disorder Hypertension Sepsis Depression PCOS (polycystic ovarian syndrome) Rash Polysubstance (excluding opioids) dependence, daily use Methadone maintenance therapy patient Anxiety and depression Diabetes Surgical History Hx of removal of cyst Family History Father No problems noted. Mother Hx of diabetes mellitus Sister Heart disease Social History Household Members: Children Household Members Other:: 2 Housing: Apartment Do you presently have visiting nurse or other home services: No Alcohol intake: former Patient Tobacco Use Status: Never used Tobacco Tobacco use type: Cigarette Cigarette Packs Per Day: 3 Cigarettes Per Day: 60.0 Years Smoked: 2 e-Cigarette/Vaping Use: Never Used Second Hand Smoke Exposure: No Substance Use Type: Marijuana Advance Directives Date on File: 01/11/22 service: No Current occupational status: unemployed Review of Systems Const All systems reviewed & are unremarkable except as noted in HPI and below Physical Exam Vital Signs: BMI result Body Mass Index 42.6 Extrem Other: *Bilateral Lower Extremity Focused Exam Vascular: DP/PT 2/4, CFT less than 3 seconds all digits, temperature gradient warm to cool. Mild right hallux plantar edema. Derm: Large hyperkeratotic lesion plantar aspect of the right hallux proximal phalanx with underlying wound measuring (0.8cm x 0.5cm) to the level of subcutaneous tissue. No tendon or bone exposed. Right 5th toe nail with dry blood, no open wounds. Neuro: Protective sensation grossly diminished to bilateral lower extremities. MSK: Right hallux IPJ 75-80* degree extension deformity with pain on attempted plantarflexion. 1st MTP ROM intact with no pain. Office Procedures AMB Debridement/Avulsion Podia Details: Procedure: Sharp excisional debridement Depth: Subcutaneous layer Indication: Right diabetic foot ulcer (0.8cm x 0.5cm) Anesthesia: N/A Description: The site was prepped using alcohol/cleanser. A #15 Blade was used to perform a sharp excisional wound debridement of the lesion to the level of subcutaneous tissue and healthy bleeding base. All measurements increased by 0.1 cm and by the end of debridement. Dressings: mupirocin, Xeroform, 4 x 4 gauze, Eric Tolerance: Patient tolerated procedure well, no immediate complications. 97902-Krqakyccspo of skin tissue Procedure code (CPT) selection complete Results Reviewed Results Reviewed: Podiatry X-ray Read: 05/15/2025 X-ray right foot 3 views (AP, MO, Lateral) reviewed which shows intra- articular fracture of the lateral base of the 1st distal phalanx with lateral and dorsal dislocation. No signs of cortical erosions on the plantar aspect of the bone. Bone density is within normal limits. I personally reviewed the imaging and my findings are listed above. Laboratory Tests 04/29/25 16:50 Hemoglobin A1c % 8.5 H Assessment & Plan Assessment & Plan (1) Type 2 diabetes mellitus with foot ulcer: Code(s): E11.621 - Type 2 diabetes mellitus with foot ulcer; L97.509 - Non-pressure chronic ulcer of other part of unspecified foot with unspecified severity Category: Medical Qualifiers: Diabetes mellitus detention insulin use: with predatory animal exterminator use Qualified Code(s): E11.621 - Type 2 diabetes mellitus with foot ulcer; L97.509 - Non- pressure chronic ulcer of other part of unspecified foot with unspecified severity; Z79.4 - senior living (current) use of insulin Plan: * Hemoglobin A1c 8.5% as of 04/29/2025 * Debrided right hallux wound to the level of subcutaneous tissue and dressed with mupirocin, xeroform, 4x4 gauze, and eric. (2) Closed dislocation of great toe of right foot: Code(s): S93.104A - Unspecified dislocation of right toe(s), initial encounter Category: Medical Qualifiers: Encounter type: sequela Qualified Code(s): S93.104S - Unspecified dislocation of right toe(s), sequela Plan: * Reviewed right foot x-ray with the patient * Recommended right hallux IPJ fusion to reduce the deformity and offload the plantar hallux IPJ wound. * Referred for MRI right foot to evaluate for Osteomyelitis prior to surgery. Orders: Orders MR foot RT wo con Today E11.621 - Type 2 diabetes mellitus with foot ulcer, L97.519 - Non-pressure chronic ulcer of other part of right foot with unspecified severity, M86.171 - Other acute osteomyelitis, right ankle and foot AMB Debridement/Avulsion Podiatry Today E11.621 - Type 2 diabetes mellitus with foot ulcer, L97.509 - Non-pressure chronic ulcer of other part of unspecified foot with unspecified severity, Z79.4 - senior living (current) use of insulin Coding Level of Care Code New Pt Level 4 (10959) Diagnoses Type 2 diabetes mellitus with foot ulcer, with long-term current use of insulin E11.621; L97.509; Z79.4 Diabetes mellitus predatory animal exterminator insulin use: with detention use Closed dislocation of great toe of right foot, sequela S93.104S Encounter type: sequela CPT Codes Skin Debridement - CPT: 28224-Ckdzyjtzjlh of skin tissue ([id number]) Time Spent (min) 35
[2025-07-15 09:33] VITALS: BMI 42.6
--- OUTSIDE RECORDS SUMMARY | 2025-07-15 10:15 | XMS_ITS | Patient Health Record ---
Author Organization [facility] Address [address] [place] [address] Care Team Providers Care Metallurgical Or Materials Technician Name Role Phone Florinda Villalta Primary Care Provider UnavailLiban Addison Jr Unavailable Allergies No Known Allergies Reason For Referral No Information Medications Medication SIG (Take, Route, Frequency, Duration) Notes Start Date End Date Status Lisinopril 20 MG 1 tablet Orally Once a day; Duration: 30 day(s) 03/11/2025 Active amLODIPine Besy-Benazepril HCl 5-10 MG as directed Orally 03/11/2025 Active Tresiba 100 UNIT/ML as directed Subcutaneous 03/11 Active DULoxetine HCl 30 MG 1 capsule Orally On ce a day; Duration: 30 day(s) 03/11/2025 Active Methadone HCl 40 [...] Status W/U Status Risk Notes Problem Gastroparesis (905766942) Gastroparesis (K31.84) Active confirmed Vital Signs Temperature 99.3 degrees Fahrenheit 03/11/2025 Blood pressure diastolic 01 mm Hg 03/11/2025 Height 68 in 03/11/2025 Blood pressure systolic 001 mm Hg 03/11/2025 Weight 299.8 lbs 03/11/2025 BMI 45.58 kg/m2 03/11/2025 Encounters Encounter Location Date Provider Diagnosis [facility] [address] [place] [address] 03/11/2025 Liban Bhatt Jr Gastroparesis K31.84 and Abn findings-GI tract R93.3 [facility] [address] [place] [address] 03/24/2025 Liban Bhatt Jr [facility] [address] [place] [address] 03/24/2025 Liban Bhatt Jr [facility] [address] [place], [place] [address], [place] [address] 03/27/2025 Liban Bhatt Jr [facility] [address] [place] [address] 04/27/2025 Liban Bhatt Jr Assessments Encounter Date [...] Insured Coverage Start Date Coverage End Date [facility] [address] [address] [place], [place] [id number] [phone] [id number] COURTNEY WEEMS Self - patient is the insured Medical (General) History Medical History History ICD Code diabetic hypertension fatty liver Hospitalization History Reason Date(Month/Year) vomiting
== END 2025-07-15 10:06 | disposition home or self-care (01) ==
LOC: HO.HPODS 09:19
PROVIDERS: Visit Provider Student in an Organized Health Care Education/Training Program
DX: E11.621 Type 2 diabetes mellitus with foot ulcer (principal); L97.509 Non-pressure chronic ulcer of other part of unspecified foot with unspecified severity; Z79.4 Long term (current) use of insulin; S93.104S Unspecified dislocation of right toe(s), sequela
CPT/HCPCS: 11042; 99204

== ENCOUNTER → 2025-07-15 09:19 | Outpatient (BNVA) | payer OTHER, SELFPAY | PROVIDERS: Visit Provider Student in an Organized Health Care Education/Training Program | DX: E11.621 Type 2 diabetes mellitus with foot ulcer (principal); L97.509 Non-pressure chronic ulcer of other part of unspecified foot with unspecified severity; Z79.4 Long term (current) use of insulin; S93.104A Unspecified dislocation of right toe(s), initial encounter; X58.XXXA Exposure to other specified factors, initial encounter; Y93.9 Activity, unspecified; Y92.9 Unspecified place or not applicable; Y99.9 Unspecified external cause status | CPT/HCPCS: 11042; 99202 ==

== ENCOUNTER 2025-08-05 12:50 | Outpatient (AMB) | payer OTHER, SELFPAY ==
--- NOTE | 2025-08-05 13:03 | A.OFFVIS_ITS ---
Intake Visit Reasons: fu wound care Intake Note: Misty is a 40 year old female who presents today as a new patient for an evaluation of her right hallux wound check. Patient states she is very sore at the moment. Allergies metformin Adverse Reaction (Intermediate, Verified 08/05/25 13:17) Nausea HPI HPI [facility] wound care: Details: 30-year-old female with past medical history of diabetes mellitus type 2, hypertension, chronic right hallux wound with history of osteomyelitis, presents for right big toe deformity. She states she has not noticed any changes to her right foot wound, she is still receiving wound care at the [facility]. She as well yet received her MRI. She also believes her A1c likely increased since she has not been able to receive her glucose monitor. History: 1 year ago, the patient had a blister form on her right big toe which eventually became infected to the level of the bone. She then underwent IV antibiotic treatment. The wound had eventually healed after extensive wound care. Over the past few months, the wound had returned. She then noticed her right big toe sticking up without any history of trauma or injury however she does endorse a history of neuropathy. She is currently be seeing at the W[facility] Care Center once a week. 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 [facility] Medical History (Updated 07/15/25 @ 10:19 by Fer Fernandes DPM) History of PCOS Adrenal adenoma Morbid obesity Neuropathy History of open wound of lower extremity Opioid use disorder Hypertension Sepsis Depression PCOS (polycystic ovarian syndrome) Rash Polysubstance (excluding opioids) dependence, daily use Methadone maintenance therapy patient Anxiety and depression Diabetes Surgical History Hx of removal of cyst Family History Father No problems noted. Mother Hx of diabetes mellitus Sister Heart disease Social History Household Members: Children Household Members Other:: 2 Housing: Apartment Do you presently have visiting nurse or other home services: No Alcohol intake: former Patient Tobacco Use Status: Never used Tobacco Tobacco use type: Cigarette Cigarette Packs Per Day: 3 Cigarettes Per Day: 60.0 Years Smoked: 2 e-Cigarette/Vaping Use: Never Used Second Hand Smoke Exposure: No Substance Use Type: Marijuana Advance Directives Date on File: 01/11/22 service: No Current occupational status: unemployed Review of Systems Const All systems reviewed & are unremarkable except as noted in HPI and below Physical Exam Extrem Other: *Bilateral Lower Extremity Focused Exam Vascular: DP/PT 2/4, CFT less than 3 seconds all digits, temperature gradient warm to cool. Mild right hallux plantar edema. Derm: Large hyperkeratotic lesion plantar aspect of the right hallux proximal phalanx with underlying wound measuring (0.8cm x 0.5cm) to the level of subcutaneous tissue. No tendon or bone exposed. Neuro: Protective sensation grossly diminished to bilateral lower extremities. MSK: Right hallux IPJ 75-80* degree extension deformity with pain on attempted plantarflexion. 1st MTP ROM intact with no pain. Results Reviewed Results Reviewed: Podiatry X-ray Read: 05/15/2025 X-ray right foot 3 views (AP, MO, Lateral) reviewed which shows intra- articular fracture of the lateral base of the 1st distal phalanx with lateral and dorsal dislocation. No signs of cortical erosions on the plantar aspect of the bone. Bone density is within normal limits. I personally reviewed the imaging and my findings are listed above. Laboratory Tests 04/29/25 16:50 Hemoglobin A1c % 8.5 H Assessment & Plan Assessment & Plan (1) Closed dislocation of great toe of right foot: Code(s): S93.104A - Unspecified dislocation of right toe(s), initial encounter Category: Medical Qualifiers: Encounter type: sequela Qualified Code(s): S93.104S - Unspecified dislocation of right toe(s), sequela Plan: * Previously reviewed right foot x-ray with the patient * Recommended right hallux IPJ fusion and extensor tendon lengthening to reduce the big toe dislocation deformity and offload the plantar hallux IPJ wound. * Referred for MRI right foot to evaluate for Osteomyelitis prior to surgery. * Patient states she currently is unable to take time off work and is finding social support to plan for surgery likely in September. * Follow up in 1 month (2) Type 2 diabetes mellitus with foot ulcer: Code(s): E11.621 - Type 2 diabetes mellitus with foot ulcer; L97.509 - Non-pressure chronic ulcer of other part of unspecified foot with unspecified severity Category: Medical Qualifiers: Diabetes mellitus residential insulin use: with extermination supervisor use Qualified Code(s): E11.621 - Type 2 diabetes mellitus with foot ulcer; L97.509 - Non-pr essure chronic ulcer of other part of unspecified foot with unspecified severity; Z79.4 - [facility] (current) use of insulin Plan: * Hemoglobin A1c 8.5% as of 04/29/2025 * Dressed right hallux wound with Xeroform, 4 x 4 gauze Anjali. Coding Level of Care Code Est Pt Level 3 (97524) Diagnoses Closed dislocation of great toe of right foot, sequela S93.104S Encounter type: sequela Type 2 diabetes mellitus with foot ulcer, with long-term current use of insulin E11.621; L97.509; Z79.4 Diabetes mellitus residential insulin use: with residential use Time Spent (min) 30
== END 2025-08-05 13:28 | disposition home or self-care (01) ==
LOC: HO.HPODS 12:51
PROVIDERS: Visit Provider Student in an Organized Health Care Education/Training Program
DX: S93.104S Unspecified dislocation of right toe(s), sequela (principal); E11.621 Type 2 diabetes mellitus with foot ulcer; L97.509 Non-pressure chronic ulcer of other part of unspecified foot with unspecified severity; Z79.4 Long term (current) use of insulin
CPT/HCPCS: 99213

== ENCOUNTER → 2025-08-05 12:50 | Outpatient (BNVA) | payer OTHER, SELFPAY | PROVIDERS: Visit Provider Student in an Organized Health Care Education/Training Program | DX: S93.104S Unspecified dislocation of right toe(s), sequela (principal); E11.621 Type 2 diabetes mellitus with foot ulcer; L97.509 Non-pressure chronic ulcer of other part of unspecified foot with unspecified severity; Z79.4 Long term (current) use of insulin | CPT/HCPCS: 99212 ==

== ENCOUNTER 2025-09-01 09:13 | Outpatient (AMB) | payer OTHER, SELFPAY ==
--- OUTSIDE RECORDS SUMMARY | 2025-03-31 05:00 | XMS_ITS ---
Author Organization [facility] Address [address] [place] [phone] Care Team Providers Care Security Operations Analyst Name Role Phone Florinda Villalta Primary Care Provider Unavailab Liban Tyson Jr REASON FOR VISIT gastroparesis,abn findings gi tract Encounters Encounter Location Date Provider Diagnosis [facility] Outpatient [address] [place] [phone] 03/31/2025 Liban Bhatt Jr Plan Of Treatment No Information Progress Notes * FAUSTINAHAZELVICENTEOB:[birth year] (40 yo F)Acc No.[id number]:03/31/2025 EGD and COL/MAC Patient: COURTNEY CHACON Provider: Ranjit Bhatt MD :1985 A ge:40 Y S ex:Female Date:03/31/2025 Address:[address] [place], [place] [id number] Pcp:ANIRUDH Headley Subjective: * Chief Complaints: * G astroparesis,abn findings gi tract * The named appointment provid er may or may not be the originator of this progress note, and it is not deemed complete until electronically signed by the appointment provider. Sign off status: Pending * Provider: Ranjit Bhatt MD Date: 0 03/31/2025 Generated for Printi ng/Faxing/eTransmitting on: 1 11:39 AM EST
--- NOTE | 2025-09-01 09:15 | MHC.OFFVIS ---
Vital Signs 09/01/25 09:20 Height 5 ft 8 in Weight 306 lb 0.026 oz BMI 46.5 BP 140/84 H Blood Pressure Location Lt brachial Position Sitting Pulse 104 H Pulse Source Pulse Oximeter Pulse Oximetry (%) 98 Oxygen Delivery Method Room Air Intake Visit Reasons: DMT2/Adrenal Mass/PCOS Intake Note: Patient presents today for a follow-up on Type 2 Diabetes Mellitus, Adrenal Mass, and PCOS. Patient states she has been having issues with having the sensor, states some it falls off or stops working. Last Diabetic eye exam was on: Due Last Podiatry exam was on: Has been seeing wound care every week and/or every other week, needs surgery on the Right 1st digit. Last seen a few weeks ago by Lending Consultant Dr. Monroe, [place] [facility] Podiatry Most recent HbA1c: 9.9% 09/01/2025 Random Glucose- 261 mg/dL, Today Manufacturing Technologist Required: No Accompanied by: Self / Same As Patient Allergies metformin Adverse Reaction (Intermediate, Verified 09/01/25 09:20) Nausea HPI Comments Details: 40 YO female who is seen in f/u for type 2 diabetes. She also has a history of left adrenal mass and polycystic ovarian syndrome. The patient last saw Kaylynn Stewart NP on 02/12/25 At the time of her initial visit labs were ordered to determine the type of diabetes which have not yet been done (lab had difficulty drawing blood work). She will attempt to have these done again. has PCOS and plans to see delivery stock clerk about this. Additionally, she had a recent abt CT which showed a left adrenal adenoma 2.7 x 1.9. Patient is asymptomatic. The patient has a history of opioid use disorder on methadone, abscess of the buttocks requiring hospitalization 2023, osteomyelitis and cellulitis of the right foot requiring hospitalization in July 2024 status post 6 weeks antibiotic therapy and recently seen by I and D 09/10/2024 with no additional follow-up needed unless recurrence. Foot ulcer has healed and she is no longer going to the wound center however has been instructed to return if the area opens op. She has additional prior history of uncontrolled DM,gastroparesis, obesity, PCOS, opioid use disorder, history of nausea. During her hospital stay she was seen by vascular and circulation to the right leg was widely patent without intervention needed. She is now followed by Dr. Filippi her new podiatry She is not using street drugs. She continues weekly follow-up with [facility] in [place] daily and once weekly for clinical counseling. She has not had a primary care provider in quite some time and had been getting her medication through the ER. She was recently seen by CDE and referred to a program to get healthy meals. Initially diagnosed with T2DM at age 25 y.o. Was initially started on treatment with diet and was able to bring her numbers down with 50 pound weight loss. metformin caused nausea Tresiba 86 units admelog tid before meals 80-100 6 units 101-150 18 units 151-200 22 units 201-250 24 units 251-300 28 units and follow dka protocol 301-350 30 units and follow dka protocol over 350 36 units and follow dka protocol Freestyle fabiano sensor 3 average glucose: 225 08/08/2025 to 08/21/2025 14 day continuous glucose sensor report reviewed. He is using the sensor a 38% of the time Glucose Management indicator 9.2 % Time CGM active 38 % TIme in ranges: 47 % very high (above 250) 38 % high (181-250) 15 % in range (70-180] 0 % low (69-55) 0 % very low (below 54) 23.8% Glucose variability (target <36%) Interpretation of CGMS point of cares high throughout the day with increases post-breakfast and post-dinner Reports low sugars none recent. Treats lows with glucose tabs Family history of T2DM in maternal aunt and cousin No retinopathy: Has eyes checked yearly, last eye exam 1 yr ago. Needs to make appt Has neuropathy some shooting pain better on cymbalta does not see podiatry, referred several visits ago, urea prescribed for dry skin and has capcasin cream urea not covered she was given a different cream by her tosser followed by Dr. Washington. He will be providing dm shoes. No known nephropathy, on andrew-i microalbumin 15.0 09/18/24 08/17/2024 eGFR>60 Not on statin no lipid profile in EHR Has been ordered Denies CAD. Denies chest pain, dyspnea or symptoms of claudication SHe feels her depression had been improving she is using trazodone p.r.n. [place] discouraged by recent gastro issues and her dog was just put down this week. She is going to the substance abuse clinic and is working with new counselor. fruit Recently seen by Elli Pizano RD who recommended: Work on reducing total carb per meal to 75 g or less following healthy plate method and 0-20 g as snack 1-2 /day if needed Include lean protein foods (cottage cheese, eggs,poultry, tofu, beans ) in your meal s Try as bedtime snack cottage cheese with applesauce practice mindful eating She has been working on this R 1st toe broken. with ulcer -followed by wound clinic - had osteomyelitis She has a history of PCOS: She has not had a period in at least several years and is planning to see delivery stock clerk. And extensive hormonal workup excluded ovarian mass She did have excess facial hair in her teen early 20s some scalp loss. 01/29/25 : Adrenal CAT There is a fat containing left adrenal 2.7 x 1.9 cm mass, possible . Normal plasma metanephrines and metanephrines. A random cortisol was 4.8 adenoma. [facility] Medical History (Updated 07/15/25 @ 10:19 by Fer Fernandes DPM) History of PCOS Adrenal adenoma Morbid obesity Neuropathy History of open wound of lower extremity Opioid use disorder Hypertension Sepsis Depression PCOS (polycystic ovarian syndrome) Rash Polysubstance (excluding opioids) dependence, daily use Methadone maintenance therapy patient Anxiety and depression Diabetes Surgical History Hx of removal of cyst Family History Father No problems noted. Mother Hx of diabetes mellitus Sister Heart disease Social History Household Members: Children Household Members Other:: 2 Housing: Apartment Do you presently have visiting nurse or other home services: No Alcohol intake: former Patient Tobacco Use Status: Never used Tobacco Tobacco use type: Cigarette Cigarette Packs Per Day: 3 Cigarettes Per Day: 60.0 Years Smoked: 2 e-Cigarette/Vaping Use: Never Used Second Hand Smoke Exposure: No Substance Use Type: Marijuana Advance Directives Date on File: 01/11/22 service: No Current occupational status: unemployed Physical Exam Vital Signs: Last Vital Signs Pulse 104 H 09/01/25 09:20 BP 140/84 H 09/01/25 09:20 Pulse Ox 98 09/01/25 09:20 Oxygen Delivery Method Room Air 09/01/25 09:20 BMI result Body Mass Index 46.5 Absence of Cushingoid features. Absence of acromegalic features. Neck exam reveals nl size thyroid about 15 gms. No thyroid nodules palpable. No carotid bruits present. Lungs CTA. Heart S1 S2, Reg R/R. No M/R/ G. Skin exam reveals absence of vitiligo or acanthosis nigricans. Abdominal exam reveals Soft NT/ND with NA BS. No organomegaly present. Neck Other: . Extrem Other: Visual exam of foot performed. R 1st toe bandaded . No onchomycosis, no callouses.Pulses 2 + distally Sensation intact to monofilament exam. Vibratory sensation sensed is decreased with 128 Hz tuning fork Results AMB Hemoglobin A1c AMB Hemoglobin A1c 9.9 % Last Edit by PEGGY Snider on 09/01/25 09:40 Results Reviewed Results Reviewed: Laboratory Last Values Glucose (Clinic) 261 mg/dL (60-115) H 09/01/25 09:29 Hgb A1c (Clinic) 9.9 % (4.0-6.0) H 09/01/25 09:32 Assessment & Plan Assessment & Plan (1) Diabetes: Code(s): E11.9 - Type 2 diabetes mellitus without complications Category: Medical Plan: This is a 40-year-old white female with a history of type 2 diabetes being treated with basal-bolus insulin with poor glycemic control and known microvascular complications namely neuropathy. Patient does have a gastroparesis which might be a relative contraindication to using a G LP 1/GIP Plan is to increasing Tresiba to 100 units and Ademalog scale by 10 units We will talk to the patient about starting a statin. (2) Adrenal adenoma: Comment: 01/2025 left 2.7 x 1.9 lab work up pending Code(s): D35.00 - Benign neoplasm of unspecified adrenal gland Category: Medical Plan: Imaging characteristics she has benign adenoma. We will rule out Juan syndrome a light of uncontrolled diabetes with insulin resistance. A pheochromocytoma has been ruled out Plan is to check a 1 mg dexamethasone suppression with cortisol and dexamethasone level. We will also check aldosterone and renin level Orders: Orders AMB Hemoglobin A1c Today E11.9 - Type 2 diabetes mellitus without complications Cortisol Random 1 Week D35.00 - Benign neoplasm of unspecified adrenal gland Dexamethasone 1 Week D35.00 - Benign neoplasm of unspecified adrenal gland Aldosterone 2 Weeks D35.00 - Benign neoplasm of unspecified adrenal gland Lipid Panel 2 Months E11.9 - Type 2 diabetes mellitus without complications Renin 2 Weeks D35.00 - Benign neoplasm of unspecified adrenal gland Medications: New dexamethasone 1 mg PO ONCE 1 tab 0RF atorvastatin (Lipitor) 10 mg PO DAILY 30 tabs 4RF Coding Level of Care Code Est Pt Level 4 (32915) Add On Problem Visit Only Diagnoses Diabetes E11.9 Adrenal adenoma D35.00
[2025-09-01 09:20] VITALS: BP 140/84; PULSE 104; O2SAT 98; BMI 46.5
[2025-09-01 09:34] LABS: Glucose, Whole Blood 261 mg/dL (60-115)
--- OUTSIDE RECORDS SUMMARY | 2025-09-01 11:39 | XMS_ITS ---
Author Organization [facility] Care Team Providers Care Director Global Sales Name Role Phone Faraz Beauchamp Unavailable Unavailable Joel Gutiérrez Unavailable Unavailable Weston Cox Unavailable Unavail able Allergies and adverse reactions No Known Allergies Care Team Name Role Address Phone Organization Dates Faraz Beauchamp PCP [address] [address] [place], [facility], [place] [address], [facility] (Office): [facility] 07/09/2024 - 08/15/2024 Joel Gutiérrez [address], [place], [facility], [facility] (Office): [facility] 07/09/2024 - 08/15/2024 Weston Cox [address] [address] [place], [facility] [address], [facility] (Office): [facility] 07/09/2024 - 08/15/2024 Immunizations Immunization Status Vaccine Details Vaccine Code CodeSystem Jama e Notes Influenza, split virus, trivalent, PF 2023 - 2024 cancelled Influenza, split virus, trivalent, injectable, preservative free 140 CVX created date: 07/29/2024 consent date: 07/29/2024 Mental Status Section Date Assessment Total Score Description 08/15/2024 BIMS 15 cognitively int act CAM 0 No delirium ind icated PHQ-9 01 minimal depress ion 07/15/2024 BIMS 15 cognitively int act CAM 0 No delirium ind icated PHQ-9 01 minimal depress ion Insurance Providers Coverage Status Coverage Type Relationship to Subscriber Member Identifier Subscriber Identifier Group Identifier Payer Identifier and Other information 2024 Code: 51 Code System OID:[id number] .[id number]. 5 Code System Name: Source of Payment Typology (PHDCT) Display: Managed Care (Private) Translation: Code: Code System: OID:[id number] .[id number]. 1336 Code System Name: Insurance Type Code ([id number]) Display Name: Health Maintenance Organization (HMO) Plan Code: SELF Code System Name: HL7 RoleCode Code System OID:[id number] .[id number] Display Name: Self [id number] Root: [id number] Payer Name: [facility] Address: [address] [place] [address] City: [place] State: [place] Country: [facility] [employer]: [phone] Problems Problem # Description Date of onset Resolved Date Code CodeSystem Concern Status 1 DIFFICULTY IN WALKING, NOT ELSEWHERE CLASSIFIED [address] active 2 OTHER ACUTE OSTEOMYELITIS, OTHER SITE [address] active 3 ANEMIA, UNSPECIFIED [address] active 4 ANXIETY DISORDER, UNSPECIFIED [address] active [address] active 6 CUTANEOUS ABSCESS OF BUTTOCK [address] active 7 CYCLICAL VOMITING SYNDROME UNRELATED TO MIGRAINE [address] active 8 ESSENTIAL (PRIMARY) HYPERTENSION [address] active 9 [address]ALEM[address] active 10 MAJOR DEPRESSIVE DISORDER, RECURRENT, UNSPECIFIED [address] active 11 METHICILLIN SUSCEPTIBLE STAPHYLOCOCCUS AUREUS INFECTION THE CAUSE OF DISEASES CLASSIFIED ELSEWHERE [address] active 12 MORBID (SEVERE) OBESITY DUE TO EXCESS CALORIES [address] active 13 OPIOID DEPENDENCE, UNCOMPLICATED [address] active 14 OTHER ABNORMALITIES OF GAIT AND MOBILITY [address] active 15 POLYCYSTIC OVARIAN SYNDROME [address] active 16 TYPE 2 DIABETES MELLITUS WITH HYPERGLYCEMIA [address] active [address] WEAK[address] active Reason for Referral No Reasons for Referral Entered Social History Social History Observation Description Start Date End Date Code Code System Current Smoking Status Tobacco smoking consumption unknown 469178123 SNOMED CT Sex Assigned At Female 1985 26713-6 [facility] Gender Identity Sexual Orientation Vital Signs Code Code System Vitals Name Values and Units Timing Information 8462-4 [facility] Blood Pressure-Diastolic Value=78 Un its=mmHg 08/15/2024 8480-6 [facility] Blood Pressure-Systolic Aerwi=482 Un its=mmHg 08/15/2024 2339-0 [facility] Blood Sugar Tremz=266.0 Units=mg/dL 08/15/2024 9279-1 [facility] Respiratory Rate Value=18.0 Units=/m in 08/15/2024 8310-5 [facility] Body Temperature Value=98.4 Units= F 08/15/2024 8867-4 [facility] Heart rate Value=77.0 Units=/min 07236-7 [facility] O2 % dC Oximetry Value=98.0 Units= % 08/15/2024 37743-2 [facility] Pain Level Value=0.0 08/15/2024 08295-6 [facility] Weight Ateai=982.0 Units=Lbs 8302-2 [facility] Height Value=68.0 Units=Inches 03/11/2024
--- OUTSIDE RECORDS SUMMARY | 2025-09-01 11:39 | XMS_ITS | Patient Health Record ---
Author Organization [facility] Address [address] [place] [address] Care Team Providers Care Assembler Truck Trailer Name Role Phone Florinda Villalta Primary Care Provider UnavailLiban Addison Jr Unavailable Allergies No Known Allergies Reason For Referral No Information Medications Medication SIG (Take, Route, Frequency, Duration) Notes Start Date End Date Status Lisinopril 20 MG Tablet 1 tablet Orally Once a day; Duration: 30 day(s) 03/11/2025 Active amLODIPine Besy-Benazepril HCl 5-10 MG Capsule as directed Orally 03/11/2025 Active Tresiba 100 UNIT/ML Solution as directed Subcutaneous 03/11/2025 Act gail DULoxetine HCl 30 MG Capsule Delayed Release Particles 1 capsule Orally Once a day; Duration: 30 day(s) 03/11/2025 Active Methadone HCl 40 MG Tablet Soluble 1 tablet in 4 ounces of water or juice Orally Once a day Active Insulin Lispro 100 UNIT/ML Solution as directed Injection 03/11/2025 Ac tive Immunizations Vaccine Route Administration Date Status Comme nts Influenza Unknown 03/11/2025 Refused Social History Tobacco Use: Social History Observation Description Date Details (start date - stop date) Never Smoker NA - NA Social History Drug/Alcohol: Social Info Question Answer Notes AUDIT-C (Standard) Did you have a drink containing alcohol in the past year? No Points 0 Interpretation Negative Tobacco Use: Social Info Question Answer Notes Tobacco Control (Standard) Tobacco use: Nonsmoker Problems Problem Type SNOMED Code ICD Code Onset Dates Problem Status W/U Status Risk Notes Problem Gastroparesis (103217787) Gastroparesis (K31.84) Active confirmed Vital Signs Temperature 99.3 degrees Fahrenheit 03/11/2025 Blood pressure diastolic 01 mm Hg 03/11/2025 Height 68 in 03/11/2025 Blood pressure systolic 001 mm Hg 03/11/2025 Weight 299.8 lbs 03/11/2025 BMI 45.58 kg/m2 03/11/2025 Encounters Encounter Location Date Provider Diagnosis [facility] [address] [place] [id number] 03/11/2025 Liban Bhatt Jr Gastroparesis K31.84 and Abn findings-GI tract R93.3 [facility] [address] [place] [address] 03/24/2025 Liban Bhatt Jr [facility] [address] [place] [address] 03/24/2025 Liban Bhatt Jr [facility] [address] [place] [address], [place] [address] 03/27/2025 Liban Bhatt Jr [facility] [address] [place] [address] 04/27/2025 Liban Bhatt Jr Assessments Encounter Date [...] Insured Coverage Start Date Coverage End Date [facility] [address] [address] [place], [place] [id number] COURTNEY WEEMS Self - patient is the insured Medical (General) History Medical History History ICD Code diabetic hypertension fatty liver Hospitalization History Reason Date(Month/Year) vomiting
== END 2025-09-01 10:24 | disposition home or self-care (01) ==
LOC: HO.ENCR 09:14
PROVIDERS: Visit Provider Internal Medicine Endocrinology, Diabetes & Metabolism
DX: E11.9 Type 2 diabetes mellitus without complications (principal); D35.00 Benign neoplasm of unspecified adrenal gland
CPT/HCPCS: 99214

== ENCOUNTER → 2025-09-01 09:13 | Outpatient (BNVA) | payer OTHER, SELFPAY | PROVIDERS: Visit Provider Internal Medicine Endocrinology, Diabetes & Metabolism | DX: E11.43 Type 2 diabetes mellitus with diabetic autonomic (poly)neuropathy (principal); K31.84 Gastroparesis; Z79.4 Long term (current) use of insulin; D35.00 Benign neoplasm of unspecified adrenal gland | CPT/HCPCS: 82947; 83036; 99212 ==